=== PATIENT | male | born 1955 | race Caucasian/White ===

== ENCOUNTER → 2017-08-11 10:17 | Outpatient (CLI) | payer BC, SELFPAY | PROVIDERS: Family Provider Family Medicine; PCP Family Medicine; Visit Provider Nurse Practitioner Adult Health | DX: N39.0 Urinary tract infection, site not specified (principal) | CPT/HCPCS: 87077; 87086; 87088; 87186 ==

== ENCOUNTER → 2017-08-17 08:29 | Outpatient (CLI) | payer OTHER, BC, SELFPAY ==
[2017-08-17 08:00] VITALS: BP 130/86; BMI 45.4
--- NOTE | 2017-08-17 08:33 | RAD_ITS ---
STUDY: X-RAY - LEFT CLAVICLE REASON FOR EXAM: Male, 61 years old. Pain. Recent fall. TECHNIQUE: 2 view(s) of the clavicle. COMPARISON: Comparison is made with prior examination dated June 18, 2017. FINDINGS: Marked degree of osteoarthritis of the glenohumeral joint with degenerative spurring in the medial aspect of the humeral head. Normal clavicle. There is degenerative arthrosis of the acromioclavicular joint without inferior osseous prominence. Normal visualized sternoclavicular articulation. Normal visualized pulmonary apex. RAD/Clavicle IMPRESSION: Marked degree of glenohumeral osteoarthritis. Electronically Signed: Agustín Escudero MD at 14:13 EST Tel [phone], Service support ,
== END ==
PROVIDERS: Family Provider Family Medicine; PCP Family Medicine; Visit Provider Physician Assistant
DX: S46.912A Strain of unspecified muscle, fascia and tendon at shoulder and upper arm level, left arm, initial encounter (principal); M25.512 Pain in left shoulder; X58.XXXA Exposure to other specified factors, initial encounter; Y93.9 Activity, unspecified; Y92.9 Unspecified place or not applicable; Y99.9 Unspecified external cause status
CPT/HCPCS: 73000

== ENCOUNTER → 2017-09-04 10:17 | Outpatient (CLI) | payer OTHER, SELFPAY ==
--- NOTE | 2017-09-04 10:19 | MRI_ITS ---
STUDY: MRI LEFT SHOULDER REASON FOR EXAM: Male, 61 years old. Recent fall. Limited range of motion. Weakness. TECHNIQUE: Standardized fat and water weighted pulse sequences were obtained in all 3 orthogonal planes. COMPARISON: X-ray June 18, 2016 FINDINGS: Normal supraspinatus tendon. Normal infraspinatus tendon. Normal subscapularis tendon. Normal teres minor tendon. Normal supraspinatus muscle. Normal infraspinatus muscle. Normal subscapularis muscle. Normal teres minor muscle. There is severe osteoarthritis of the glenohumeral articulation. There is a moderate volume joint effusion of the glenohumeral joint. There is spurring and flattening deformity of the medial humeral head Normal biceps labral complex. Normal intracapsular long biceps tendon. There is blunting of the labrum with tearing of the posterior and superior labrum. Normal capsulo- ligamentous complex. Normal rotator interval. There is severe hypertrophic osteoarthritis of the acromioclavicular articulation with impingement upon the musculotendinous junction of the supraspinatus muscle. There is a Type II morphology (curved) acromion, with a neutral orientation. There is no subacromial-subdeltoid bursal fluid. Normal visualized coracohumeral and coracoacromial ligaments. Normal quadrilateral space. Normal axillary space. Normal deltoid muscle. Normal trapezius muscle. MRI/Upper Ext Joint Only(Routine) IMPRESSION: Severe glenohumeral degenerative change. Tearing of the labrum. Joint effusion. No rotator cuff tear. Acromioclavicular spurring and impingement. Electronically Signed: Josue Girard MD at 12:06 EST , Service support ,
== END ==
PROVIDERS: Family Provider Family Medicine; PCP Family Medicine; Visit Provider Physician Assistant
DX: S46.912A Strain of unspecified muscle, fascia and tendon at shoulder and upper arm level, left arm, initial encounter (principal); X58.XXXA Exposure to other specified factors, initial encounter; Y93.9 Activity, unspecified; Y92.9 Unspecified place or not applicable; Y99.9 Unspecified external cause status
CPT/HCPCS: 73221

== ENCOUNTER 2018-01-03 13:53 | Emergency (ER) | payer BC, SELFPAY ==
[2018-01-03 13:54] VITALS: BP 161/75; PULSE 102; RESP 24; TEMP 37.2; O2SAT 98; BMI 45.8
--- NOTE | 2018-01-03 14:27 | CT_ITS ---
STUDY: CT ABDOMEN AND PELVIS WITHOUT CONTRAST REASON FOR EXAM: Male, 62 years old. UTI SYMPTOMS X3 DAYS/HEMATURIA HX-PROSTATE CA W/ RADIATION RADIATION DOSAGE (If Supplied By Facility): CTDIvol = ( 34.29 ) mGy, DLP = ( 1884.90 ) mGycm TECHNIQUE: Transaxial images were obtained from the dome of the diaphragm to the symphysis pubis without oral contrast, and without intravenous contrast. Sagittal and coronal images were reconstructed. Individualized dose optimization techniques were used for this CT. COMPARISON: January 23, 2017 FINDINGS: The visualized lung bases are unremarkable. The visualized portions of the heart are within normal limits. There is a stable hepatic hypodensity. Again seen is cholelithiasis.. Normal spleen. Normal pancreas. Normal bilateral adrenal glands. There is mild right slightly worse than left perinephric stranding which is slightly worsened. Otherwise normal kidneys. There is a new small hiatal hernia. Normal small intestine. Normal colon. There is non-visualization of the appendix. There is diffuse atherosclerotic calcification of the abdominal aorta, without a demonstrated aneurysm. Normal inferior vena cava. Normal retroperitoneum. Normal urinary bladder. There is a stable umbilical hernia. There are diffuse degenerative changes of the visualized lumbar spine. CT/Abdomen/Pelvis without Cont IMPRESSION: There is mild bilateral renal inflammation, which could be chronic or acute. There is a new small hiatal hernia. Other chronic findings. Electronically Signed: Lisa Sheehan MD at 15:26 EDT , Service support ,
[2018-01-03 14:49] VITALS: BP 184/100; PULSE 96; RESP 20; O2SAT 97
[2018-01-03 15:12] LABS: Anion Gap 5 (5-15); BUN 16 mg/dL (7-18); BUN/Creat Ratio 15.2 RATIO (10-20); Calcium,Total 9.1 mg/dL (8.5-10.1); Chloride 105 mmol/L (98-107); Creatinine, Serum 1.05 mg/dL (0.70-1.30); EST Glomerular Filtration Rate 76 mL/min (>60); Est Glom Filt Rate - Afr Amer 91 mL/min (>60); Glucose 131 mg/dL (74-106); Sodium Level 141 mmol/L (136-145)
[2018-01-03 15:15] LABS: Absolute Lymphocyte Count 0.46 X10^3/ul (0.83-4.51); Absolute Neutrophil Count 12.7 X10^3/uL (2.0-7.7); Basophil# 0.05 X10^3/uL; Basophil% 0.4 % (0-1); Eosinophil# 0.15 X10^3/uL; Eosinophils% 1.1 % (0-5); Hematocrit 46.4 % (40-54); Hemoglobin 15.9 g/dl (13.0-16.5); Lymphocyte # 0.46 X10^3/ul (4.0); Lymphocyte % 3.3 % (19-41); Mean Corp Hgb Conc 34.3 g/gl (32-36); Mean Corpuscular Hgb 31.4 pg (27.0-32.0); Mean Corpuscular Volume 91.5 fL (80-94); Mean Platelet Vol. 9.7 fl (6.2-12.0); Monocyte# 0.76 X10^3/uL; Monocyte% 5.4 % (0-10); Neutrophil # 12.67 X10^3/uL (2.7-7.7); Neutrophil % 89.7 % (47-70); Platelet Count 246 K/mm3 (150-450); RBC Distribution Width CV 12.8 % (11.6-14.6); RBC Distribution Width SD 42.1 fl (35.1-43.9); Red Blood Count 5.07 M/mm3 (4.6-6.2); White Blood Count 14.1 K/mm3 (4.4-11.0)
[2018-01-03 15:19] LABS: Differential Indicated SCAN CRITERIA MET; POSITIVE COUNT NO; POSITIVE DIFFERENTIAL YES; POSITIVE MORPHOLOGY NO
[2018-01-03 15:21] LABS: Differential Comment SCANNED
[2018-01-03 15:28] LABS: Bacteria 0 SEEN /hpf (None Seen); Mucous, Urine 0 SEEN /hpf (<or=2+); Red Blood Cells-Urine 0 SEEN /hpf (0-5)
[2018-01-03 15:44] LABS: Color, Urine Yellow (Yellow); Glucose, Dipstick Normal (Normal); Ketone-Dipstick Negative (Negative); Leukocyte Esterase-Dipstick 25 /ul (Negative); Nitrite-Dipstick Negative (Negative); Occult Blood-Urine Negative /ul (Negative); Protein-Dipstick Negative (Negative); Urine Bilirubin Dipstick Negative (Negative); Urine Clarity Clear (Clear); Urine Urobilinogen Normal (Normal)
[2018-01-03] MEDS: Ketorolac 15 MG/ML Vial IV (15:48)
[2018-01-03 15:56] LABS: Squamous Epithelial Cells - UA 0-5 SEEN /hpf (0-5); White Blood Cells 0-5 SEEN /hpf (0-5)
[2018-01-03 16:00] VITALS: TEMP 37.6
--- NOTE | 2018-01-03 16:26 | ED.DCSUM_ITS ---
- ER Visit Summary Date of Service: 01/03/18 Chief Complaint: Right flank pain History of Present Illness: The patient is a 62 M who presents with dysuria, hematuria, and right flank pain that has been getting worse over the past 3 days. Patient states his urine has been cloudy and he has been passing some blood clots. Patient admits to chills today. Patient did not take his temperature at home. Patient describes his pain is aching. Patient states the pain is over the right posterior flank. Patient denies any suprapubic pain. Patient admits to dysuria, frequency, urgency, and hematuria. Physical Examination: Vital signs are stable except for an elevated blood pressure of 184/100. Patient is in no acute distress. Oral mucosa is pink and moist. Neck is supple there is no JVD noted. Heart was regular rate and rhythm. Lungs are clear and equal bilaterally. Abdomen is soft. Bowel sounds are normal. There is no suprapubic tenderness. There is some right CVA tenderness noted. Cranial nerves II through XII are intact. There are no focal motor or sensory deficits noted. The remaining physical exam is within normal limits. Test Results: CBC showed a mild leukocytosis of 14.1. Basic metabolic profile is within normal limits. Urinalysis showed leukocyte esterase of 25 but 0-5 white blood cells 0-[address] scan of the abdomen and pelvis showed perinephric stranding bilaterally but worse on the right. There is no other acute intra-abdominal pathology noted. Emergency Department Course and Treatment: Given the patient's symptoms and perinephric stranding of the kidneys bilaterally, the patient will be treated for pyelonephritis with Unasyn. Patient states he does not want to take Cipro or quinolones because he read that it can cause problems with his eyes. Patient was given a dose of Unasyn here in the emergency department. Patient was given a prescription for Augmentin. Patient was instructed to follow-up with his primary care physician in 3-5 days. Patient understood and was agreeable with the plan. All questions were answered. Disposition: Discharge home Impression: Pyelonephritis This note was generated with [employer] dictation software. It may contain incorrect words, spelling, and punctuation that were not noted in review of the chart prior to signing ED Disposition - Plan for ED Patient: Disposition: Home or Assisted Living Chief Complaint: Complaint Diagnosis: Pyelonephritis, acute Instructions: ED UTI Pyelonephritis Male Prescriptions: Amoxicillin/Potassium Clav [Augmentin 875-125 Tablet] 1 ea PO BID #20 tab Referrals: Chun Schneider DO [Primary Care Provider] -
[2018-01-03 16:36] VITALS: BP 130/72; PULSE 103; RESP 16; TEMP 39.3; O2SAT 95
[2018-01-03 17:27] VITALS: BP 137/84; PULSE 89; RESP 14; O2SAT 97
== END 2018-01-03 17:28 | disposition home or self-care (01) ==
PROVIDERS: Emergency Provider Emergency Medicine; Family Provider Family Medicine; PCP Family Medicine
DX: N10 Acute pyelonephritis (principal); R03.0 Elevated blood-pressure reading, without diagnosis of hypertension; Z79.899 Other long term (current) drug therapy; Z87.442 Personal history of urinary calculi; Z85.46 Personal history of malignant neoplasm of prostate
CPT/HCPCS: 51702; 74176; 80048; 81001; 85025; 87040; 96365; 96375; 99285; A4216; J0295

== ENCOUNTER → 2018-01-04 17:45 | Outpatient (CLI) | payer BC, SELFPAY | PROVIDERS: Visit Provider Urology | DX: R30.0 Dysuria (principal); R31.9 Hematuria, unspecified | CPT/HCPCS: 87086 ==

== ENCOUNTER 2018-03-17 23:29 | Emergency (ER) | payer BC, SELFPAY ==
[2018-03-17 23:31] VITALS: BP 131/74; PULSE 84; RESP 16; TEMP 36.4; O2SAT 96; BMI 49.1
[2018-03-17] MEDS: 0.9% Normal Saline 1,000 ML 1000 ML IV (23:48)
[2018-03-17 23:57] LABS: Absolute Lymphocyte Count 1.96 X10^3/ul (0.83-4.51); Absolute Neutrophil Count 4.7 X10^3/uL (2.0-7.7); Basophil# 0.09 X10^3/uL; Basophil% 1.2 % (0-1); Eosinophils% 3.9 % (0-5); Hematocrit 42.5 % (40-54); Lymphocyte # 1.96 X10^3/ul (4.0); Lymphocyte % 25.2 % (19-41); Mean Corp Hgb Conc 35.3 g/gl (32-36); Mean Corpuscular Hgb 31.8 pg (27.0-32.0); Mean Platelet Vol. 9.4 fl (6.2-12.0); Neutrophil # 4.69 X10^3/uL (2.7-7.7); Neutrophil % 60.2 % (47-70); Platelet Count 304 K/mm3 (150-450); RBC Distribution Width CV 12.6 % (11.6-14.6); RBC Distribution Width SD 40.9 fl (35.1-43.9); Red Blood Count 4.72 M/mm3 (4.6-6.2); White Blood Count 7.8 K/mm3 (4.4-11.0)
[2018-03-18 00:03] LABS: POSITIVE COUNT NO; POSITIVE DIFFERENTIAL NO; POSITIVE MORPHOLOGY NO
[2018-03-18 01:01] LABS: Anion Gap 12 (5-15); BUN 21 mg/dL (7-18); Calcium,Total 9.2 mg/dL (8.5-10.1); Chloride 99 mmol/L (98-107); Creatinine, Serum 1.61 mg/dL (0.70-1.30); EST Glomerular Filtration Rate 46 mL/min (>60); Est Glom Filt Rate - Afr Amer 56 mL/min (>60); Estimated Creatinine Clearance 47.86 ml/min; Glucose 94 mg/dL (74-106); Potassium 4.1 mmol/L (3.5-5.1); Sodium Level 136 mmol/L (136-145)
--- NOTE | 2018-03-18 02:52 | ED.VISSUMM ---
- ER Visit Summary Date of Service: 03/18/18 Chief Complaint: [Muscle cramps] History of Present Illness: The patient is a 62 M [presents the emergency department complaint of muscle cramps that started about 45 minutes ago. Patient states that he was at work working in a very hot environment for over 8 hours and although he tried to keep up with his hydration he believes he got dehydrated. Patient states he has intermittent cramping of his arms and legs as well as his back and abdomen muscles. Patient denies recent illness. He denies any chest pain or shortness of breath.] Physical Examination: [HEENT-PERRLA, EOMI. Cranial nerves II through XII grossly intact. TMs clear. Mucous membranes moist. No adenopathy. On arrival to ER patient is covered in sweat and he has salt rodriguez on his shirt and clothing. As well as his . Cardiovascular-regular rate and rhythm without murmur or ectopy Lungs-clear to auscultation, chest wall stable without crepitus or subcu emphysema Abdomen-normoactive bowel sounds, soft, nontender, no rebound or rigidity, no peritoneal signs. Extremities-intact ?4, normal range of motion, normal pulses, atraumatic] Test Results: [CBC with differential obtained was normal. Chemistries were unremarkable. BUN was 21 creatinine 1.61. Potassium was 4.1 and calcium was 9.2.] Emergency Department Course and Treatment: [Patient received a liter normal same fluid bolus] Treatment Plan: [Discharged home in stable condition advised to push fluids] Disposition: [Discharged] Impression: [Muscle cramping Dehydration] This note was generated with [employer] dictation software. It may contain incorrect words, spelling, and punctuation that were not noted in review of the chart prior to signing ED Disposition - Plan for ED Patient: Chief Complaint: General Illness Referrals: Chun Schneider DO [Primary Care Provider] -
--- NOTE | 2018-03-18 02:54 | ED.DEP ---
ED Disposition - Plan for ED Patient: Chief Complaint: General Illness Instructions: ED Spasm Muscle, Dehydration Referrals: Chun Schneider DO [Primary Care Provider] - As Needed
[2018-03-18 03:01] VITALS: BP 104/60; PULSE 68; RESP 18; O2SAT 95
== END 2018-03-18 03:02 | disposition home or self-care (01) ==
LOC: ED 03-18 00:14
PROVIDERS: Emergency Provider Emergency Medicine; Family Provider Family Medicine; PCP Family Medicine
DX: E86.0 Dehydration (principal); I10 Essential (primary) hypertension; Z79.899 Other long term (current) drug therapy; Z96.653 Presence of artificial knee joint, bilateral
CPT/HCPCS: 80048; 85025; 96360; 96361; 99284; J7030; A4216

== ENCOUNTER → 2018-07-17 07:44 | Outpatient (CLI) | payer BC, SELFPAY ==
[2018-07-17 07:44] VITALS: BMI 45.4
[2018-07-17 08:52] LABS: PSA,Total- Diagnostic 0.24 ng/mL (0.0-4.0)
== END ==
PROVIDERS: Family Provider Family Medicine; PCP Family Medicine; Referring Provider Urology; Visit Provider Urology
DX: C61 Malignant neoplasm of prostate (principal)
CPT/HCPCS: 36415; 84153

== ENCOUNTER → 2018-11-17 14:23 | Outpatient (CLI) | payer BC, SELFPAY ==
[2018-11-17 09:42] VITALS: BMI 45.4
[2018-11-17 14:39] LABS: Bacteria 0 SEEN /hpf (None Seen); Mucous, Urine 0 SEEN /hpf (<or=2+); Red Blood Cells-Urine 0 SEEN /hpf (0-5); White Blood Cells 0 SEEN /hpf (0-5)
[2018-11-17 14:50] LABS: Color, Urine Yellow (Yellow); Glucose, Dipstick Normal (Normal); Ketone-Dipstick Negative (Negative); Leukocyte Esterase-Dipstick Negative /ul (Negative); Nitrite-Dipstick Negative (Negative); Occult Blood-Urine Negative /ul (Negative); Protein-Dipstick Negative (Negative); Specific Gravity, Urine 1.015 (1.002-1.030); Urine Clarity Sl. Cloudy (Clear); Urine Urobilinogen Normal (Normal); Urine pH 6.5 (5.0 - 8.0)
[2018-11-17 14:52] LABS: Urine Bilirubin Dipstick 3 mg/dL (Negative)
[2018-11-17 14:58] LABS: Squamous Epithelial Cells - UA 0-5 SEEN /hpf (0-5)
== END ==
PROVIDERS: Family Provider Family Medicine; PCP Family Medicine; Referring Provider Physician Assistant; Visit Provider Physician Assistant
DX: R35.0 Frequency of micturition (principal)
CPT/HCPCS: 81001; 87077; 87086; 87088; 87186

== ENCOUNTER → 2018-12-23 09:04 | Outpatient (CLI) | payer BC, SELFPAY ==
[2018-11-17 09:42] VITALS: BMI 45.4
--- NOTE | 2018-12-23 09:30 | RAD_ITS ---
HISTORY:bilat hands pain Tamp; swelling. lt side pain (Tgt;) rt side bilat hands pain Tamp; swelling. lt side pain (Tgt;) rt side COMPARISON: None FINDINGS: # of images incl. paperwork: 3 XR Hand Min 3 Views: Left BONE AND JOINTS: No acute fracture or subluxation. SOFT TISSUES: Unremarkable. No radiopaque foreign body. RAD/Hand Min 3 Views IMPRESSION: No acute pathology If symptoms persist repeat study in 7-10 days or sooner if clinically indicated at 1946 Reported and signed by: Liz Simons DO Electronically Signed: Liz Simons DO at 19:43 EDT Tel , Service support ,
--- NOTE | 2018-12-23 09:30 | RAD_ITS ---
HISTORY:bilat hands pain Tamp; swelling. also finger swelling. lt side pain (Tgt;) rt side bilat hands pain Tamp; swelling. also finger swelling. lt side pain (Tgt;) rt side COMPARISON: None FINDINGS: # of images incl. paperwork: 3 XR Hand Min 3 Views: Right BONE AND JOINTS: No acute fracture or subluxation. there is joint space narrowing seen at the proximal interphalangeal joint of the middle finger with osteophyte formation. Also at the second and third metacarpophalangeal joints. Osteophytes are seen at the second and third metacarpal heads. SOFT TISSUES: Unremarkable. No radiopaque foreign body. RAD/Hand Min 3 Views IMPRESSION: Degenerative changes as discussed at 1949 Reported and signed by: Liz Simons DO Electronically Signed: Liz Simons DO at 19:48 EDT Tel , Service support ,
--- NOTE | 2018-12-23 09:30 | RAD_ITS ---
HISTORY:bilat shoulder pain. lt side pain (Tgt;) rt side proximal COMPARISON: None FINDINGS: # of images incl. paperwork: 4 XR Shoulder Min 2 Views: Right BONE AND JOINTS: No acute fracture or subluxation. There is linear joint space narrowing with subchondral cyst formation at the humerus as well as at the glenoid. Large medial osteophyte extending from the humeral head as well as the inferior aspect of the glenoid. There is also acromioclavicular arthropathy. Probable loose bodies within the joint space most marked in the subcoracoid region that measures approximately 1.4 cm. SOFT TISSUES: Unremarkable. No radiopaque foreign body. 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
--- NOTE | 2018-12-23 09:31 | RAD_ITS ---
HISTORY:bilat shoulder pain. lt side pain (Tgt;) rt side bilat shoulder pain. lt side pain (Tgt;) rt side COMPARISON: June 18, 2017 FINDINGS: # of images incl. paperwork: 4 XR Shoulder Min 2 Views: Left BONE AND JOINTS: There is marked bony humeral joint space narrowing with a large medial osteophyte that was seen on the prior study. Acromiohumeral joint space narrowing is also noted with acromioclavicular arthropathy also noted. SOFT TISSUES: Unremarkable. No radiopaque foreign body. RAD/Shoulder min 2 Views IMPRESSION: Marked degenerative change involving the left shoulder that is relatively similar to the prior study. at 1953 Reported and signed by: Liz Simons DO Electronically Signed: Liz Simons DO at 19:50 EDT Tel , Service support ,
[2018-12-23 10:27] LABS: PSA,Total- Diagnostic 0.12 ng/mL (0.0-4.0)
== END ==
PROVIDERS: Urology; Family Provider Family Medicine; PCP Family Medicine; Referring Provider Family Medicine; Visit Provider Family Medicine
DX: M79.89 Other specified soft tissue disorders (principal); M79.642 Pain in left hand; M25.511 Pain in right shoulder; C61 Malignant neoplasm of prostate; R30.0 Dysuria
CPT/HCPCS: 36415; 73030; 73130; 84153; 87077; 87086; 87088; 87186

== ENCOUNTER 2019-07-12 14:26 | Emergency (ER) | payer BC, SELFPAY ==
[2019-07-11 13:58] VITALS: BMI 45.4
[2019-07-12 14:27] VITALS: BP 135/76; PULSE 72; RESP 15; TEMP 37.1; O2SAT 96; BMI 47.9
[2019-07-12] MEDS: 0.9% Normal Saline 1,000 ML 1000 ML IV (15:54)
[2019-07-12 16:13] LABS: Anion Gap 4 (5-15); BUN 9 mg/dL (7-18); BUN/Creat Ratio 10.5 RATIO (10-20); Calcium,Total 8.4 mg/dL (8.5-10.1); Chloride 111 mmol/L (98-107); Creatinine, Serum 0.85 mg/dL (0.70-1.30); EST Glomerular Filtration Rate 95 mL/min (>60); Est Glom Filt Rate - Afr Amer 115 mL/min (>60); Estimated Creatinine Clearance 83.82 ml/min; Glucose 103 mg/dL (74-106); Potassium 3.9 mmol/L (3.5-5.1); Sodium Level 142 mmol/L (136-145)
[2019-07-12 16:30] LABS: Absolute Lymphocyte Count 1.52 X10^3/uL (0.83-4.51); Absolute Neutrophil Count 2.5 X10^3/uL (2.0-7.7); Basophil# 0.07 X10^3/uL; Basophil% 1.4 % (0-1); Eosinophil# 0.37 X10^3/uL; Eosinophils% 7.6 % (0-5); Hematocrit 44.3 % (40-54); Lymphocyte # 1.52 X10^3/ul (4.0); Lymphocyte % 31.3 % (19-41); Mean Corp Hgb Conc 33.9 g/dL (32-36); Mean Corpuscular Hgb 31.2 pg (27.0-32.0); Mean Corpuscular Volume 92.1 fL (80-94); Mean Platelet Vol. 9.9 fl (6.2-12.0); Monocyte# 0.37 X10^3/uL; Monocyte% 7.6 % (0-10); NRBC Flagged by Analyzer 0 % (0-5); Neutrophil % 51.7 % (47-70); POSITIVE MORPHOLOGY YES; Platelet Count 256 K/mm3 (150-450); RBC Distribution Width CV 12.7 % (11.6-14.6); RBC Distribution Width SD 42.9 fl (35.1-43.9); Red Blood Count 4.81 M/mm3 (4.6-6.2); White Blood Count 4.9 K/mm3 (4.4-11.0)
[2019-07-12 16:37] VITALS: BP 137/85; PULSE 60; RESP 16; O2SAT 96
[2019-07-12 16:37] LABS: Differential Indicated SCAN CRITERIA MET
[2019-07-12 17:05] LABS: Reactive Lymphocyte RARE
--- NOTE | 2019-07-12 17:19 | ED.VIS.GEN ---
History of Present Illness Chief Complaint: Diarrhea Informant: Patient Onset: Days - 4 days Context: Gradual Onset Timing: Waxes and wanes Current Severity: Mild Maximum Severity: Moderate Narrative: Patient presents with a 4-day history of diarrhea. The day prior to onset of diarrhea he completed a 10-day course of Augmentin for upper respiratory symptoms. He is concerned he may have C. difficile. He denies fever or chills. He has not had significant abdominal pain. He does report a 6 pound weight loss over those 4 days. - Past Medical History (1) Dyslipidemia Status: Chronic (2) Hypertension Status: Chronic Past Medical History - Allergies and Home Meds Allergies/Adverse Reactions: Allergies hydromorphone HCl [From Dilaudid] Allergy (Verified 07/12/19 14:31) Other Primary Care Physician: Chun Schneider DO [Primary Care Provider] - Prior records reviewed: Yes Lives: Spouse/ Significant Other Smoking Status: Never smoker - Family History Maternal Family History: Reports: No pertinent history Review of Systems General: Denies: Chills, Fever Eyes: Denies: Visual changes - bilaterally ENT: Denies: Bilateral ear pain Cardiovascular: Denies: Chest pain Respiratory: Denies: Dyspnea, Cough Gastrointestinal: Reports: Nausea, Diarrhea. Denies: Abdominal pain, Vomiting Genitourinary: Denies: Dysuria Neurological: Denies: Headache Allergy: Denies: Uticaria Physical Exam Vital Signs/Narrative: Vital Signs Temp Pulse Resp BP Pulse Ox 07/12/19 16:37 60 16 137/85 H 96 07/12/19 14:27 98.8 F 72 15 135/76 H 96 Inital Vital Signs reviewed: Yes General: Well nourished, Well developed Head: Normocephalic ENT: Moist mucous membranes Neck: Supple Cardiovascular: Regular rate, Regular rhythm Respiratory: No distress, CTA bilaterally Abdomen: Soft, Nontender, Normal bowel sounds Extremities: Nontender Skin: Normal color Neurological: Alert, Oriented x3 Psychological: Normal affect Diagnostic/Tx/Re-eval Laboratory Results 07/12/19 07/12/19 07/12/19 15:49 15:49 16:13 WBC Cancelled 4.9 Corrected WBC Cancelled RBC Cancelled 4.81 Hgb Cancelled 15.0 Hct Cancelled 44.3 MCV Cancelled 92.1 MCH Cancelled 31.2 MCHC Cancelled 33.9 RDW Std Deviation Cancelled 42.9 RDW Coeff of Shahzad Cancelled 12.7 Plt Count Cancelled 256 MPV Cancelled 9.9 Immature Gran % (Auto) Cancelled 0.400 Neut % (Auto) Cancelled 51.7 Lymph % (Auto) Cancelled 31.3 [place] % (Auto) Cancelled 7.6 Eos % (Auto) Cancelled 7.6 H Baso % (Auto) Cancelled 1.4 H Absolute Neuts (auto) Cancelled 2.5 Absolute Lymphs (auto) Cancelled 1.52 Total Counted Cancelled Neutrophils % (Manual) Cancelled Band Neutrophils % Cancelled Lymphocytes % (Manual) Cancelled Monocytes % (Manual) Cancelled Eosinophils % (Manual) Cancelled Basophils % (Manual) Cancelled Metamyelocytes % Cancelled Myelocytes % Cancelled Promyelocytes % Cancelled Blast Cells % Cancelled Plasma Cell % (Manual) Cancelled Other Cells % Cancelled Nucleated RBC % Cancelled 0 Nucleated RBCs/100 WBC Cancelled Differential Comment Cancelled Diff Path Review Cancelled Hypersegmented Neuts Cancelled Atypical Lymphocytes Cancelled Reactive Lymphocytes Cancelled RARE Smudge Cells Cancelled Toxic Granulation Cancelled Toxic Vacuolation Cancelled Dohle Bodies Cancelled Kian Rods Cancelled Platelet Estimate Cancelled Plt Morphology Comment Cancelled RBC Morphology Cancelled Polychromasia Cancelled Hypochromasia Cancelled Poikilocytosis Cancelled Basophilic Stippling Cancelled Anisocytosis Cancelled Microcytosis Cancelled Macrocytosis Cancelled Spherocytes Cancelled Sickle Cells Cancelled Target Cells Cancelled Tear Drop Cells Cancelled Ovalocytes Cancelled Stomatocytes Cancelled Mcdonough-Elkridge Bodies Cancelled Hamilton Cells Cancelled Bite Cells Cancelled Crenated Cell Cancelled Acanthocytes (Spur) Cancelled Rouleaux Cancelled Schistocytes Cancelled Sodium 142 Potassium 3.9 Chloride 111 H Carbon Dioxide 27.0 Anion Gap 4 L BUN 9 Creatinine 0.85 Estim Creat Clear Calc 83.82 Est GFR (MDRD) Af Amer 115 Est GFR (MDRD) Non-Af 95 BUN/Creatinine Ratio 10.5 Glucose 103 Calcium 8.4 L - Medical Decision Making Patient was given a liter of IV fluids here. He did provide a stool sample, however stool is now solid. I advised him that they would not even run C. difficile testing on this. He will be given an outpatient order and if his stool becomes more liquid again he will bring it in for outpatient testing. ED Disposition - Plan for ED Patient: Disposition: Home or Assisted Living Diagnosis: Diarrhea Instructions: DIARRHEA, Unk Cause (Adult) Report Pendg Referrals: Chun Schneider DO [Primary Care Provider] - 3-5 Days if not improving
[2019-07-12 17:36] VITALS: PULSE 71; RESP 16; O2SAT 98
== END 2019-07-12 17:36 | disposition home or self-care (01) ==
PROVIDERS: Emergency Provider Emergency Medicine; Family Provider Family Medicine; PCP Family Medicine
DX: R19.7 Diarrhea, unspecified (principal); I10 Essential (primary) hypertension; E78.5 Hyperlipidemia, unspecified
CPT/HCPCS: 80048; 85025; 96360; 99285; J7030

== ENCOUNTER → 2019-09-06 | Outpatient (CLI) | payer BC, SELFPAY | END | disposition home or self-care (01) | LOC: LABSPEC 11:18 | PROVIDERS: PCP Family Medicine; Referring Provider Urology; Visit Provider Urology | DX: R30.9 Painful micturition, unspecified (principal) | CPT/HCPCS: 87077; 87086; 87088; 87186 ==

== ENCOUNTER 2020-03-17 22:31 | Emergency (ER) | payer BC, SELFPAY ==
[2020-03-17 22:31] VITALS: BP 136/72; PULSE 66; RESP 16; TEMP 36.8; BMI 45.7
--- NOTE | 2020-03-17 23:11 | ED.VISSUMM ---
- ER Visit Summary Date of Service: 03/17/20 Chief Complaint: Fall History of Present Illness: The patient is a [address] Schneider. 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 He has a history of bilateral cataract surgery in 2018. He reports that just prior to coming emerge department he caught his heel on the last step and fell. States that he face planted into a abernathy. He denies any bleeding from his nose. No pain to his nose. No neck, back, shoulder, wrist, or hip pain. Patient denies any change in his vision. No loss of consciousness. He is not on anticoagulants. Review of systems: General: No fever, chills, cold sweats. Cardiovascular: No chest pain, palpitations. Respiratory: No cough, shortness of breath, dyspnea on exertion. Gastrointestinal: No abdominal pain, nausea, vomiting, diarrhea, melena, or hematochezia. Genitourinary: No dysuria, frequency, hematuria. Skin: No rash. Neuro: No headache, numbness, weakness. Physical Examination: Vitals: Stable. Afebrile. Face: Abrasion to the bridge of his nose. No active bleeding. This does not require repair. Eyes: He has a contusion and soft tissue swelling to the right upper eyelid. There is a large sub-conjunctival hemorrhage to the inferior portion of his eye. Extraocular motions are intact. Visual acuity is 20/40 on the right, 20/25 on the left, and 20/25 bilaterally. Neck: No vertebral tenderness. Full ROM without difficulty. Cleared by NEXUS criteria. Back: No vertebral tenderness. General: A&O x 3. NAD. Cardiovascular exam: Regular rate and rhythm, no murmur, rub or gallop. Respiratory exam: Chest nontender. No crepitus. Clear to auscultation bilaterally. No wheezes or stridor. Abdominal exam: Soft, nontender, nondistended, normal bowel sounds. No pain in RUQ or LUQ specifically. No peritoneal signs. Extremity: Atraumatic. No pain with range of motion. Emergency Department Course and Treatment: Patient was given Tylenol for pain. He had his tetanus shot updated. I had a prolonged discussion with him that I do not think that the lens has moved from his cataract replacement. Treatment Plan: Patient will be discharged with instructions to follow-up with his sporting goods sales manager in 3 to 5 days for another exam. Return to the emergency department for any worsening symptoms. Disposition: To home in improved and stable condition. Impression: 1. Fall. 2. Abrasion to nose. 3. Subconjunctival hemorrhage on right. This note was generated with [employer] dictation software. It may contain incorrect words, spelling, and punctuation that were not noted in review of the chart prior to signing ED Disposition - Plan for ED Patient: Instructions: ED EYE INJURY Subconj Hemorrhage Referrals: Doctor,Your [STAFF PHYSICIAN] - 3-5 Days
[2020-03-17 23:36] VITALS: RESP 16
[2020-03-17] MEDS: Acetaminophen 500 MG Tablet 1000 MG PO (23:36)
[2020-03-17] MEDS: Diphth,Pertuss(Acell),Tet Vac 0.5 ML Vial IM (23:36)
== END 2020-03-17 23:48 | disposition home or self-care (01) ==
LOC: ED 22:57
PROVIDERS: Emergency Provider Emergency Medicine; PCP Family Medicine
DX: S00.31XA Abrasion of nose, initial encounter (principal); W10.9XXA Fall (on) (from) unspecified stairs and steps, initial encounter; Y93.9 Activity, unspecified; Y92.9 Unspecified place or not applicable; H11.31 Conjunctival hemorrhage, right eye; I10 Essential (primary) hypertension; Z79.82 Long term (current) use of aspirin; Z79.899 Other long term (current) drug therapy
CPT/HCPCS: 90471; 90715; 99283

== ENCOUNTER 2020-08-19 14:39 | Observation (INO) | payer BC, SELFPAY ==
[2020-08-19] VITALS (9 sets, daily range): BP systolic 104–135; BP diastolic 64–76; PULSE 44–77; RESP 12–24; TEMP 36.3–36.9; O2SAT 98–100; BMI 43.4; BMI 41.4
--- NOTE | 2020-08-19 15:22 | EKG12_ITS ---
Test Reason : DIZZY/LINDA Blood Pressure : / mmHG Vent. Rate : 051 BPM Atrial Rate : 051 BPM P-R Int : 164 ms QRS Dur : 092 ms QT Int : 438 ms P-R-T Axes : 036 043 058 degrees QTc Int : 403 ms Sinus bradycardia Otherwise normal ECG Confirmed by NBA CURTIS, SHANNON ([id number]), news video editor YADY DURBIN ([id number]) on 08/21/2020 8:23:59 AM Referred By: BREANNE/AYE Confirmed By:SHANNON ARANGO MD
--- NOTE | 2020-08-19 15:26 | ED.DCSUM_ITS ---
- ER Visit Summary Date of Service: 08/19/20 Chief Complaint: [Dizziness History of Present Illness: The patient is a 64 M [presents to the emergency department with complaint of dizziness that started yesterday morning when he first rolled over in bed and try to wake up. Patient states that everything chris t round and round. Patient states that he remained in bed and the symptoms resolved after few hours. Patient had another episode this morning similarly and when he checked his heart rate he noted that it was as low as 48 and normally he is in the 60s. Patient states that his blood pressure was normal. Patient currently not feeling dizzy unless he moves certain ways. He does have history years ago vertigo. He denies any falls or head injuries. He denies headache. He denies chest pain or shortness of breath. Patient has history of hypertension, obstructive sleep apnea, and history of vertigo.] Physical Examination: [HEENT-PERRLA, EOMI. Cranial nerves II through XII grossly intact. TMs clear. Mucous membranes moist. No adenopathy. Cardiovascular-regular rate and rhythm without murmur or ectopy Lungs-clear to auscultation, chest wall stable without crepitus or subcu emphysema Abdomen-normoactive bowel sounds, soft, nontender, no rebound or rigidity, no peritoneal signs. Neuro [id number] and heel bro testing within normal limits, negative Romberg, negative for drift, fundi benign Extremities-intact ?4, normal range of motion, normal pulses, atraumatic] Test Results: [EKG obtained on arrival shows sinus bradycardia with a ventricular rate of 51 bpm with no acute ST segment changes. CBC with differential was unremarkable. Chemistries unremarkable. Troponin was slightly elevated 0.062.] Orthostatic vital signs were negative. Emergency Department Course and Treatment: [The line established. Patient placed on a vehicle monitor technician. Patient received 2 baby aspirin.] Treatment Plan: [Case discussed with hospitalist will evaluate patient for admission] Disposition: [Admit] Impression: [Dizziness-suspect benign positional vertigo Exertional dyspnea Elevated troponin-rule out acute coronary syndrome] This note was generated with [employer] software. It may contain incorrect words, spelling, and punctuation that were not noted in review of the chart prior to signing ED Disposition - Plan for ED Patient: Referrals: Chun Schneider DO [Primary Care Provider] -
[2020-08-19 15:32] LABS: Absolute Neutrophil Count 2.5 X10^3/uL (2.0-7.7); Basophil# 0.09 X10^3/uL; Basophil% 1.8 % (0-1); Eosinophil# 0.36 X10^3/uL; Eosinophils% 7.3 % (0-5); Hemoglobin 15.1 g/dL (13.0-16.5); Lymphocyte % 32.3 % (19-41); Mean Corp Hgb Conc 34.3 g/dL (32-36); Mean Corpuscular Hgb 31.2 pg (27.0-32.0); Mean Corpuscular Volume 90.9 fL (80-94); Mean Platelet Vol. 9.6 fl (6.2-12.0); Monocyte# 0.42 X10^3/uL; Monocyte% 8.5 % (0-10); NRBC Flagged by Analyzer 0 % (0-5); Neutrophil # 2.48 X10^3/uL (2.7-7.7); Neutrophil % 49.9 % (47-70); Platelet Count 271 K/mm3 (150-450); RBC Distribution Width CV 12.1 % (11.6-14.6); RBC Distribution Width SD 40.8 fl (35.1-43.9); Red Blood Count 4.84 M/mm3 (4.6-6.2)
[2020-08-19] MEDS: 0.9% Normal Saline 1,000 ML 150 ML IV (15:44)
[2020-08-19 15:46] LABS: Anion Gap 5 (5-15); BUN 18 mg/dL (7-18); BUN/Creat Ratio 21.7 RATIO (10-20); Chloride 107 mmol/L (98-107); Creatinine, Serum 0.83 mg/dL (0.70-1.30); EST Glomerular Filtration Rate 98 mL/min (>60); Est Glom Filt Rate - Afr Amer 119 mL/min (>60); Estimated Creatinine Clearance 93.24 ml/min; Glucose 96 mg/dL (74-106); Potassium 4.1 mmol/L (3.5-5.1); Sodium Level 143 mmol/L (136-145)
[2020-08-19] MEDS: Aspirin 81 MG TAB.CHEW 324 MG PO (17:17)
--- NOTE | 2020-08-19 17:41 | EKG12_ITS ---
Test Reason : ELEVATED TROPONIN Blood Pressure : / mmHG Vent. Rate : 069 BPM Atrial Rate : 069 BPM P-R Int : 212 ms QRS Dur : 098 ms QT Int : 406 ms P-R-T Axes : 043 031 039 degrees QTc Int : 435 ms Sinus rhythm with marked sinus arrhythmia with 1st degree A-V block Otherwise normal ECG When compared with ECG of 19-AUG-2020 15:07, MANUAL COMPARISON REQUIRED, DATA IS UNCONFIRMED Confirmed by NBA CURTIS, SHANNON ([id number]), graphics editor YADY DURBIN ([id number]) on 08/21/2020 8:29:59 AM Referred By: NATACHA Confirmed By:SHANNON ARANGO MD
--- NOTE | 2020-08-19 17:45 | PCM.HP.STD ---
Problem List (1) Bradycardia with 41-50 beats per minute Status: Acute (2) Dizziness and giddiness Status: Acute History of Present Illness Date of Admission: 08/19/20 The patient is a 64 year old M with a history of hypertension. Presents to the hospital with 2 days history of intermittent episodes of dizziness and lightheadedness/giddiness. Patient noted as well that he was intermittently bradycardic with lowest heart rate noted to be 48. Since presenting to the emergency room heart rate has been running between 50 to 60 bpm and the EKG showed sinus bradycardia. Has also been experiencing some exertional dyspnea and mild easy fatigability. Denies any orthopnea or paroxysmal nocturnal dyspnea. Denies any lower extremity swelling. Denies any chest pain or palpitations. [] Past Medical History Past Medical History (Chronic Problems): Chronic Problems (Last Reviewed 06/17/20 @ 11:48 by Jahaira Abdalla) Morbid obesity with BMI of 45.0-49.9, adult (Chronic) Colonic polyp (Chronic) Hypertension (Chronic) Allergic rhinitis (Chronic) Dyslipidemia (Chronic) Hypogonadism in male (Chronic) Medical History: Medical History (Last Reviewed 06/17/20 @ 11:48 by Jahaira bAdalla) Arthritis M19.90 Fatigue R53.83 Hay fever J30.1 Knee pain M25.569 Prostate cancer C61 Shoulder pain M25.519 HTN (hypertension) I10 Allergies hydromorphone HCl [From Dilaudid] Allergy (Verified 08/19/20 14:42) Other Home Medications: Ambulatory Orders Medication Instructions Recorded Furosemide [Lasix] 40 mg PO DAILY 02/14/15 Niacin 500 mg PO QHS 02/14/15 [place]-3 Acid Ethyl Esters [Lovaza] 2 gm PO DAILY 02/14/15 Potassium Chloride [K-Dur] 20 meq PO DAILY 02/14/15 Testosterone Cypionate 1 ml IM Q14D 02/14/15 [Depo-Testosterone] Vitamin B Complex 1 ea PO BID 02/14/15 5-Hydroxytryptophan (5-Htp) [5-Htp] 100 mg PO BID 03/09/17 Folic Acid 0.8 mg PO DAILY 03/09/17 Lisdexamfetamine Dimesylate 60 mg PO DAILY 03/09/17 [Vyvanse] Ibuprofen [Advil] 200 mg PO Q6H PRN PRN 01/03/18 pregabalin 75 mg capsule 100 mg PO TID 11/17/18 Amlodipine [Norvasc] 10 mg PO DAILY 07/12/19 Aspirin [Aspirin, Baby] 81 mg PO DAILY@0800 07/12/19 Benazepril HCl [Lotensin] 40 mg PO DAILY 07/12/19 Ergocalciferol [Vitamin D] 50,000 unit PO Q7D 08/19/20 Surgical History: Surgical History (Last Reviewed 06/17/20 @ 11:48 by Jahaira Abdalla) H/O LUMBAR FUSION L3-L4 H/O laminectomy Z98.890 L3-L4 H/O total knee replacement Z96.659 2010 History of appendectomy Z90.49 History of back surgery Z98.890 History of carpal tunnel release Z98.890 History of cataract surgery Z98.49 History of elbow surgery Z98.890 History of knee surgery Z98.890 Smoking Status: Never smoker - *Family History Maternal History Items: No pertinent history Review of Systems Constitutional: Denies: Anorexia, Chills Eyes: Denies: Pain HEENT: Denies: Difficulty Hearing Cardiovascular: Denies: Chest Pain Respiratory: Denies: Cough Gastrointestinal: Denies: Abdominal Pain, Vomiting Comment: Other systems reviewed and essentially negative VTE Information - Inpt Only VTE Present on Admission: No VTE Pharm Prophylaxis ordered?: Yes - Physical Exam Vitals/I&O's: Vital Signs Temp Pulse Resp BP Pulse Ox 97.8 F 50 L 12 115/75 100 08/19/20 16:47 08/19/20 16:47 08/19/20 16:47 08/19/20 16:47 08/19/20 16:47 Oxygen Delivery Method Room Air Weight: 134.717 kg Body Mass Index (BMI) 41.4 General: Alert, Oriented x3, Cooperative, No apparent distress HEENT: Atraumatic, PERRLA, EOMI, Normocephalic Oral: Moist Mucosa, No Gingival or Mucosal Lesions/ Ulcerations Neck: Supple, No JVD, Trachea Midline Lungs: Clear to auscultation, Normal air movement, No rhonchi, No wheeze, No rales Cardiovascular: Regular Rhythm, Normal S1, Normal S2, No Ectopic Activity Abdomen: Obese Extremities: No clubbing, No cyanosis, No edema Skin: No rashes Musculoskeletal: No Tenderness to Palpation of Joints or Extremities Neurological: Cranial nerves II-XII grossly intact, Motor Exam 5/5 strength throughout Psych/Mental Status: Normal Affect, Appropriate Laboratory Results 08/19/20 15:15: WBC 5.0, RBC 4.84, Hgb 15.1, Hct 44.0, MCV 90.9, MCH 31.2, MCHC 34.3, RDW Std Deviation 40.8, RDW Coeff of Shahzad 12.1, Plt Count 271, MPV 9.6, Immature Gran % (Auto) 0.200, Neut % (Auto) 49.9, Lymph % (Auto) 32.3, [place] % (Auto) 8.5, Eos % (Auto) 7.3 H, Baso % (Auto) 1.8 H, Absolute Neuts (auto) 2.5, Absolute Lymphs (auto) 1.60, Nucleated RBC % 0 08/19/20 15:15: Sodium 143, Potassium 4.1, Chloride 107, Carbon Dioxide 31.0, Anion Gap 5, BUN 18, Creatinine 0.83, Estim Creat Clear Calc 93.24, Est GFR (MDRD) Af Amer 119, Est GFR (MDRD) Non-Af 98, BUN/Creatinine Ratio 21.7 H, Glucose 96, Calcium 9.0, Troponin I 0.062 H Current Medications Al Hydroxide/Mg Hydroxide (Mag Hydrox/Al Hydrox/Simeth 30 Ml Udc) 30 ml PO Q6H PRN PRN PRN Reason: Gastric Burning Amlodipine Besylate (Amlodipine 10 Mg Tablet) 10 mg PO DAILY [facility] Aspirin (Aspirin 81 Mg Tab.Chew) 81 mg PO DAILY@0800 [facility] Enoxaparin Sodium (Enoxaparin 40 Mg/0.4 Ml Syringe) 40 mg SC DAILY [facility] Furosemide (Furosemide 40 Mg Tablet) 40 mg PO DAILY [facility] Sodium Chloride () 1,000 mls @ 150 mls/hr IV .[id number] [facility] Last Admin: 08/19/20 15:44 Dose: 150 mls/hr Documented by: Sodium Chloride () 250 mls @ 15 mls/hr IV .[id number] PRN PRN Reason: Saline Flush Sodium Chloride () 250 mls @ 15 mls/hr IV .[id number] PRN PRN Reason: Additional IVPB Infusion Ibuprofen (Ibuprofen 200 Mg Tablet) 200 mg PO Q6H PRN PRN PRN Reason: Pain Score 1-10 Melatonin (Melatonin 3 Mg Tablet) 3 mg PO QHS PRN PRN PRN Reason: INSOMNIA Non-Formulary Medication (5-Hydroxytryptophan (5-Htp) [5-Htp]) 100 mg PO BID [facility] Non-Formulary Medication (Benazepril Hcl [Lotensin]) 40 mg PO DAILY [facility] Non-Formulary Medication (Lisdexamfetamine Dimesylate [Vyvanse]) 60 mg PO DAILY [facility] Non-Formulary Medication (Niacin) 500 mg PO QHS [facility] [id number] Ethyl Esters ([place]ola-3 Acid Ethyl Esters 1 Gm Capsule) 2 gm PO DAILY [facility] Potassium Chloride (Potassium Chloride 20 Meq Tablet) 20 meq PO DAILY [facility] Pregabalin (Pregabalin 75 Mg Capsule) 100 mg PO TID [facility] Sodium Chloride (0.9% Saline Lock 10 Ml Syringe) 10 - 40 ml IV UD PRN PRN Reason: SALINE FLUSH Assessment/Plan All Active Problems (Last Reviewed 06/17/20 @ 11:48 by Jahaira Abdalla) Bradycardia with 41-50 beats per minute (Acute) Dizziness and giddiness (Acute) Conjunctivitis, left eye (Acute) Left shoulder strain (Acute) Contusion of left knee (Acute) Left shoulder pain (Acute) Lower GI bleed (Acute) 1. Dizziness and bradycardia. Bradycardia does not appear that severe to be symptomatic though. Nonetheless reasonable to do some limited work-up. We will keep patient on telemetry. Echocardiogram tomorrow. Consult cardiology. Cycle troponins. 2. Hypertension. Well-controlled. Continue antihypertensives. Inpatient E&M: 81040 Init Hosp L3
--- NOTE | 2020-08-19 17:49 | ECHOCS_ITS ---
Reason For Study: Arrhythmia Procedure This was a 2D Doppler, Color Flow transthoracic echocardiogram. Very technically difficult study. Echo done post heart cath. Contrast injection performed. Limited views were obtained. Suggest echo be repeated at another time to better assess AV. Exam performed portable in patient room. The exam was abbreviated due to the COVID 19 protocol. Left Ventricle Normal LV size. Left ventricular systolic function is normal. The estimated ejection fraction is 65 %. No regional wall motion abnormalities noted. Aortic Valve Mild focal aortic valve calcification. Peak aortic valve gradient 83 mmHg. Mean aortic valve gradient 52 mmHg. Pericardium/Pleural No pericardial effusion. Medication Diluted definity 3ml given slow IV push to enhance endocardial definition. Time Measurements MV dec time: 0.40 sec Doppler Measurements & Calculations MV E max jimmy: 105.7 cm/sec Lat Peak E' Jimmy: 9.0 cm/sec Med Peak E' Jimmy: 7.7 cm/sec MV A max jimmy: 118.2 cm/sec E/E' lat: 11.8 E/E' med: 13.7 MV E/A: 0.89 MV V2 max: 122.3 cm/sec MV P1/2t max jimmy: 123.3 cm/sec Ao V2 max: 455.5 cm/sec MV max P.0 mmHg MV P1/2t: 110.9 msec Ao max P.0 mmHg MV V2 mean: 58.4 cm/sec Ao V2 mean: 344.0 cm/sec MV mean P.8 mmHg MV dec slope: 325.7 cm/sec2 Ao mean P.8 mmHg MV V2 VTI: 49.9 cm MVA(P1/2t): 2.0 cm2 Ao V2 VTI: 115.9 cm LV V1 max: 137.8 cm/sec LV V1 max P.6 mmHg LV V1 mean P.7 mmHg LV V1 mean: 87.5 cm/sec LV V1 VTI: 34.3 cm Interpretation Summary Normal LV size. Left ventricular systolic function is normal. The estimated ejection fraction is 65 %. Mean aortic valve gradient 52 mmHg.Probable aortic stenosis We will recommend repeating echocardiogram in 6 weeks for better look at the aortic valve. Contrast injection was performed. Ordering Physician: Perez Kenyon Referring Physician: Chun Schneider Performed By: Dean Glynn RCS
[2020-08-19] MEDS: Niacin SA 500 MG Tablet PO (22:59)
[2020-08-19] MEDS: Ibuprofen 200 MG Tablet PO (22:59)
[2020-08-19] MEDS: Pregabalin 50 MG Capsule 100 MG PO (22:59)
[2020-08-20] VITALS (15 sets, daily range): BP systolic 111–142; BP diastolic 62–83; PULSE 39–69; RESP 18; TEMP 36.5–36.6; O2SAT 95–100
[2020-08-20] MEDS: Pregabalin 50 MG Capsule 100 MG PO (05:49)
[2020-08-20 07:19] LABS: AST(SGOT) 16 U/L (15-37); Alanine Aminotransfer ALT/SGPT 27 U/L (16-61); Alkaline Phosphatase 71 U/L (45-117); Anion Gap 5 (5-15); BUN 21 mg/dL (7-18); BUN/Creat Ratio 27.3 RATIO (10-20); Chloride 107 mmol/L (98-107); Creatinine, Serum 0.77 mg/dL (0.70-1.30); EST Glomerular Filtration Rate 107 mL/min (>60); Est Glom Filt Rate - Afr Amer 130 mL/min (>60); Estimated Creatinine Clearance 77.39 ml/min; Globulin 2.9 g/dL (2.2-4.2); Glucose 90 mg/dL (74-106); Magnesium 2.2 mg/dL (1.6-2.6); Potassium 3.9 mmol/L (3.5-5.1); Protein, Total 5.9 g/dL (6.4-8.2); Sodium Level 141 mmol/L (136-145); Thyroid Stim Hormone (TSH) 1.94 uIU/mL (0.358-3.74)
--- NOTE | 2020-08-20 07:40 | CON.PCM_ITS ---
Reason for Consult Date of Consultation: 08/20/20 Reason for Consultation: Bradycardia and abnormal cardiac enzymes History of Present Illness: The patient is a 64 year old M with a past medical history significant for hypertension who woke up yesterday morning with a complaint of dizziness which started after he tried to wake up from bed. He had another episode as well. He checked his heart rate and he found that it was below 50 and he presented to the emergency room. He was seen in the emergency room he was noted to be in sinus bradycardia. He has had no chest pain and has had previous episodes of dizziness and vertigo in the past. He however has been complaining of bilateral shoulder pain. He has had no shortness of breath no paroxysmal nocturnal dyspnea or pedal edema. Cardiac enzymes that were obtained have been noted to be abnormal with evidence of myocardial damage. Cardiology was called to see him and evaluate him. He says that he feels well at this time. He is on no rate limiting medications. Past Medical History Allergies/Adverse Reactions: Allergies hydromorphone HCl [From Dilaudid] Allergy (Verified 08/19/20 14:42) Other Home Medications: Ambulatory Orders Medication Instructions Recorded Furosemide [Lasix] 40 mg PO DAILY 02/14/15 Niacin 500 mg PO QHS 02/14/15 [place]-3 Acid Ethyl Esters [Lovaza] 2 gm PO DAILY 02/14/15 Potassium Chloride [K-Dur] 20 meq PO DAILY 02/14/15 Testosterone Cypionate 1 ml IM Q14D 02/14/15 [Depo-Testosterone] Vitamin B Complex 1 ea SL BID 02/14/15 5-Hydroxytryptophan (5-Htp) [5-Htp] 100 mg PO BID 03/09/17 Folic Acid 0.8 mg PO DAILY 03/09/17 Lisdexamfetamine Dimesylate 60 mg PO DAILY 03/09/17 [Vyvanse] Ibuprofen [Advil] 200 mg PO Q6H PRN PRN 01/03/18 pregabalin 75 mg capsule 100 mg PO TID 11/17/18 Amlodipine [Norvasc] 10 mg PO DAILY 07/12/19 Aspirin [Aspirin, Baby] 81 mg PO DAILY@0800 07/12/19 Benazepril HCl [Lotensin] 40 mg PO DAILY 07/12/19 Ergocalciferol [Vitamin D] 50,000 unit PO Q7D 08/19/20 Past Medical History (Chronic Problems): Chronic Problems (Last Reviewed 06/17/20 @ 11:48 by Jahaira Abdalla) Morbid obesity with BMI of 45.0-49.9, adult (Chronic) Colonic polyp (Chronic) Hypertension (Chronic) Allergic rhinitis (Chronic) Dyslipidemia (Chronic) Hypogonadism in male (Chronic) - *Family History Maternal History Items: No pertinent history Smoking Status: Former smoker Tobacco Use: Cigars, Pipe Alcohol: None Drugs: None Review of Systems - Review of Systems General: Denies: Fever, Night Sweats, Fatigue HEENT: Denies: Vision Change Cardiovascular: Reports: Dizziness. Denies: Chest Discomfort, Shortness of Breath, Orthopnea, PND, Peripheral Edema, Palpitations, Lightheadedness, Near Syncope, Syncope Respiratory: Denies: Cough, Sputum Production, Hemoptysis Gastrointestinal: Denies: Hematemesis, Hematochezia, Melena Genitourinary: Denies: Dysuria, Hematuria Skin: Denies: Rash Neurological: Reports: Dizziness Psychiatric: Denies: Anxiety Hematologic/ Lymphatic: Denies: Lymph Node Enlargement, Anemia Objective: Vital Signs Temp Pulse Resp BP Pulse Ox 97.7 F L 39 L 18 111/67 97 08/20/20 05:55 08/20/20 07:17 08/20/20 05:55 08/20/20 05:55 08/20/20 05:55 Oxygen Delivery Method Room Air Weight: 297 lb Body Mass Index (BMI) 41.4 Intake and Output for Last 24 Hours 08/18/20 08/19/20 08/20/20 23:59 23:59 23:59 Intake Total 727.5 / 727.5 Balance 727.5 / 727.5 08/19/20 15:15: WBC 5.0, RBC 4.84, Hgb 15.1, Hct 44.0, MCV 90.9, MCH 31.2, MCHC 34.3, Plt Count 271, MPV 9.6, Immature Gran % (Auto) 0.200, Neut % (Auto) 49.9, Lymph % (Auto) 32.3, [place] % (Auto) 8.5, Eos % (Auto) 7.3 H, Baso % (Auto) 1.8 H, Absolute Neuts (auto) 2.5, Nucleated RBC % 0 08/19/20 15:15: Sodium 143, Potassium 4.1, Chloride 107, Carbon Dioxide 31.0, Anion Gap 5, BUN 18, Creatinine 0.83, Est GFR (MDRD) Af Amer 119, Est GFR (MDRD) Non-Af 98, BUN/Creatinine Ratio 21.7 H, Glucose 96, Calcium 9.0, Troponin I 0.062 H 08/19/20 18:35: Troponin I 0.063 H 08/19/20 21:10: Troponin I 0.058 H 08/20/20 05:45: Sodium 141, Potassium 3.9, Chloride 107, Carbon Dioxide 29.0, Anion Gap 5, BUN 21 H, Creatinine 0.77, Est GFR (MDRD) Af Amer 130, Est GFR (MDRD) Non-Af 107, BUN/Creatinine Ratio 27.3 H, Glucose 90, Calcium 8.0 L, Magnesium 2.2, Total Bilirubin 0.60, Troponin I 0.057 H Rhythm: EKG: Sinus bradycardia with no acute changes ECHO: Stress Test: Cardiac Cath: PCI: CT Surgery: Holter monitor: EPS: PPM: CXR: Chest CT Scan: Assessment/Plan 1. Dizziness with abnormal cardiac enzymes * He does present with dizziness with a previous history of hypertension and is noted to have abnormal cardiac enzymes. These are of some concern. He does not have any previous rate limiting medications to explain the bradycardia arrhythmia. I would recommend that we further evaluate the above cardiac enzymes either with stress testing or cardiac catheterization. Risk benefits and alternatives of been explained to him he understands and agrees to proceed. * Will check TSH for bradycardia. 2. Hypertension * His blood pressure appears to be under good control on the current medical therapy and I will not recommend that we make any other major changes. * Will continue to follow the above. * * Thank you for allowing me to participate in the care of your patient. Please don't hesitate to call if any issues arise. * Addendum: Cardiac catheterization performed this morning demonstrates no high-grade obstructive lesions. Mild aortic stenosis is present. This will be confirmed with an echocardiogram. If the above is unremarkable patient can be discharged for outpatient follow-up.
--- NOTE | 2020-08-20 07:57 | PCM.PN.HOSP ---
Patient Problems: Active and Suspected Problems (Last Reviewed 06/17/20 @ 11:48 by Jahaira Abdalla) Bradycardia with 41-50 beats per minute (Acute) Dizziness and giddiness (Acute) Vitals/I&O's: Vital Signs Temp Pulse Resp BP Pulse Ox 97.7 F L 39 L 18 111/67 97 08/20/20 05:55 08/20/20 07:17 08/20/20 05:55 08/20/20 05:55 08/20/20 05:55 Oxygen Delivery Method Room Air Weight: 297 lb Body Mass Index (BMI) 41.4 Intake and Output for Last 24 Hours 08/18/20 08/19/20 08/20/20 23:59 23:59 23:59 Intake Total 727.5 / 727.5 Balance 727.5 / 727.5 Laboratory Results 08/19/20 15:15: WBC 5.0, RBC 4.84, Hgb 15.1, Hct 44.0, MCV 90.9, MCH 31.2, MCHC 34.3, RDW Std Deviation 40.8, RDW Coeff of Shahzad 12.1, Plt Count 271, MPV 9.6, Immature Gran % (Auto) 0.200, Neut % (Auto) 49.9, Lymph % (Auto) 32.3, [place] % (Auto) 8.5, Eos % (Auto) 7.3 H, Baso % (Auto) 1.8 H, Absolute Neuts (auto) 2.5, Absolute Lymphs (auto) 1.60, Nucleated RBC % 0 08/19/20 15:15: Sodium 143, Potassium 4.1, Chloride 107, Carbon Dioxide 31.0, Anion Gap 5, BUN 18, Creatinine 0.83, Estim Creat Clear Calc 93.24, Est GFR (MDRD) Af Amer 119, Est GFR (MDRD) Non-Af 98, BUN/Creatinine Ratio 21.7 H, Glucose 96, Calcium 9.0, Troponin I 0.062 H 08/19/20 18:35: Troponin I 0.063 H 08/19/20 21:10: Troponin I 0.058 H 08/20/20 05:45: Sodium 141, Potassium 3.9, Chloride 107, Carbon Dioxide 29.0, Anion Gap 5, BUN 21 H, Creatinine 0.77, Estim Creat Clear Calc 77.39, Est GFR (MDRD) Af Amer 130, Est GFR (MDRD) Non-Af 107, BUN/Creatinine Ratio 27.3 H, Glucose 90, Calcium 8.0 L, Magnesium 2.2, Total Bilirubin 0.60, AST 16, ALT 27, Alkaline Phosphatase 71, Troponin I 0.057 H, Total Protein 5.9 L, Albumin 3.0 L, Globulin 2.9, Albumin/Globulin Ratio 1.0, TSH 1.94 Current Medications Al Hydroxide/Mg Hydroxide (Mag Hydrox/Al Hydrox/Simeth 30 Ml Udc) 30 ml PO Q6H PRN PRN PRN Reason: Gastric Burning Amlodipine Besylate (Amlodipine 5 Mg Tablet) 5 mg PO DAILY [facility] Aspirin (Aspirin 81 Mg Tab.Chew) 81 mg PO DAILY@0800 [facility] Enoxaparin Sodium (Enoxaparin 40 Mg/0.4 Ml Syringe) 40 mg SC DAILY [facility] Furosemide (Furosemide 40 Mg Tablet) 40 mg PO DAILY [facility] Hydralazine HCl (Hydralazine 20 Mg/Ml Vial) 10 mg IV Q4H PRN PRN PRN Reason: SBP > 160 Sodium Chloride () 250 mls @ 15 mls/hr IV .[id number] PRN PRN Reason: Saline Flush Sodium Chloride () 250 mls @ 15 mls/hr IV .[id number] PRN PRN Reason: Additional IVPB Infusion Sodium Chloride () 1,000 mls @ 0 mls/hr IV .Q0M [facility] Ibuprofen (Ibuprofen 200 Mg Tablet) 200 mg PO Q6H PRN PRN PRN Reason: Pain Score 1-10 Last Admin: 08/19/20 22:59 Dose: 200 mg Documented by: Lisinopril (Lisinopril 40 Mg Tablet) 40 mg PO DAILY [facility] Melatonin (Melatonin 3 Mg Tablet) 3 mg PO QHS PRN PRN PRN Reason: INSOMNIA Niacin (Niacin Sa 500 Mg Tablet) 500 mg PO QHS [facility] Last Admin: 08/19/20 22:59 Dose: 500 mg Documented by: Non-Formulary Medication (Lisdexamfetamine Dimesylate [Vyvanse]) 60 mg PO DAILY [facility] [id number] Ethyl Esters ([place]edar-3 Acid Ethyl Esters 1 Gm Capsule) 2 gm PO DAILY [facility] Potassium Chloride (Potassium Chloride 20 Meq Tablet) 20 meq PO DAILYCM [facility] Pregabalin (Pregabalin 50 Mg Capsule) 100 mg PO TID [facility] Last Admin: 08/20/20 05:49 Dose: 100 mg Documented by: Sodium Chloride (0.9% Saline Lock 10 Ml Syringe) 10 - 40 ml IV UD PRN PRN Reason: SALINE FLUSH STROKE Vital Signs/Narrative: Vital Signs Temp Pulse Resp BP Pulse Ox 08/20/20 07:17 39 L 08/20/20 06:53 48 L 08/20/20 05:55 97.7 F L 55 L 18 111/67 97 Medical Necessity - Tobacco Use Smoking Status: Former smoker Tobacco Use: Cigars, Pipe Assessment/Plan All Active Problems (Last Reviewed 06/17/20 @ 11:48 by Jahaira Abdalla) Bradycardia with 41-50 beats per minute (Acute) Dizziness and giddiness (Acute) Conjunctivitis, left eye (Acute) Left shoulder strain (Acute) Contusion of left knee (Acute) Left shoulder pain (Acute) Lower GI bleed (Acute)
[2020-08-20] MEDS: amLODIPine 5 MG Tablet PO (08:01)
[2020-08-20] MEDS: Aspirin 81 MG TAB.CHEW PO (08:01)
[2020-08-20] MEDS: Lisinopril 40 MG Tablet PO (08:01)
--- NOTE | 2020-08-20 09:18 | CL.D_ITS ---
Patient Name: YOHANA MARTINEZ Study Date: 08/20/2020 Performing: Fred Bond MD Ht: 70.86 inches 180 cm : 1955 Wt: 297.62 lbs 135 kg Age: 64 Gender: male BSA: 2.49 PROCEDURE(S) PERFORMED [id number]/LV CLINICAL PROFILE AND INDICATIONS Indications: Suspected CAD Heart Failure: None Stress/Imaging Stress/Image Study Performed: No CAD Presentations: Symptom unlikely to be ischemic. CONCLUSIONS Mild coronary artery disease with no high-grade obstructive lesions noted RECOMMENDATIONS Medical therapy DESCRIPTION OF PROCEDURE The patient arrived to the procedure lab. The risks and benefits of the procedure as well as a full d escription of our services here and current unavailability of surgical backup were fully explained to the patient and/or their significant other prior to the catheterization. The Timeout was completed, verifying the correct patient and procedure. The patient's procedural site was prepped and draped in the usual fashion. Local anesthetic was given subcutaneously to right radial region with Lidocaine 2% . Using a modified Seldinger technique, arterial access was obtained via the right radial artery, a 6 Fr sheath was inserted. Left Coronary Artery selective angiography was performed in multiple views u sing a 5 Fr. 4.0 Davidson catheter. Right Coronary Artery selective angiography was then performed in mu ltiple views using a 5 Fr. 4.0 Davidson catheter. Left Ventriculography was performed in LUND projection using a 5 Fr. Pigtail catheter. LV to AO pullback pressures were then recorded.The arterial sheath was pulled and a TR Band was applied for hemostasis w/ 11ml air CORONARY ANGIOGRAPHY DOMINANCE: Right Dominant LEFT HEART ASSESSMENT Left Ventricular Ejection Fraction: by LV Gram 60 % Normal LV wall motion Normal Left Ventricular systolic function LEFT MAIN: Angiographically normal LEFT ANTERIOR DESCENDING ARTERY: Moderate luminal irregularities up to 50% CIRCUMFLEX ARTERY: Mild luminal irregularities less than 30% RIGHT CORONARY ARTERY: Mild luminal irregularities less than 30% COMPLICATIONS No Complications PROCEDURE MEDICATIONS Versed 1 mg IV Fentanyl 50 mcg IV Oxygen: 2 L/min via nasal cannula Heparin diluted in 23cc Heparinized saline. 1/2 cocktail dose given 08/20/2020 08:55:12 IV Bolus: .9 NaCl 250 ml total 08/20/2020 08:58:42 SUMMARY OF HEMODYNAMIC DATA Time AIR REST ECG 08:39:58 AO 87/63 (76) SA 08:58:22 AO 108/72 (91) 09:05:01 LV 165/10, 19 09:10:00 LV 161/16, 23 09:10:07 LV 154/16, 21 09:10:48 LVp 154/22, 0 09:10:52 AOp 121/77 (97) 09:10:57 Signed By Fred Bond MD On 08/20/2020 9:18:02 AM Fred Bond MD
--- NOTE | 2020-08-20 09:18 | CASEMGMT ---
According to the [facility] website, the following are in-network tertiary facilities: [facility], [place], [facility], [facility], [facility], [facility], [facility], and . Rosana QUISPE CM
[2020-08-20] MEDS: 0.9% Normal Saline 1,000 ML 75 ML IV (11:33)
[2020-08-20] MEDS: Omega-3 Acid Ethyl Esters 1 GM Capsule 2 GM PO (11:33)
[2020-08-20] MEDS: Furosemide 40 MG Tablet PO (11:33)
--- NOTE | 2020-08-20 11:51 | DCINST_ITS ---
- Discharge Diagnoses Current Active Problems: Current Active and Chronic Problems (Last Reviewed 06/17/20 @ 11:48 by Jahaira Abdalla) 1. Bradycardia with associated dizziness, lightheadedness with recent history of exertional dyspnea, unclear specific etiology 2. Nonocclusive CAD (08/20/2020 cardiac catheterization with mild coronary disease with no high-grade obstructive lesions with medical therapy recommended) 3. Hypertension 4. Insert hyperlipidemia 5. History of prostate cancer 6. Allergic rhinitis 7. Osteoarthritis 8. Morbid obesity You will use the following diet at home:: Cardiac Your food should be the consistency of: Regular Your liquids should be the consistency of: Regular/Thin Discharge Activity: - - Encourage cautious position changes given onset of some lightheadedness and dizziness occasionally although orthostatics were noted to be negative. Weight Bearing Status: Weight bearing as tolerated Call your doctor if you observe: Fever of 101 or Higher, Inability to urinate, Inability to have a bowel movement, Shortness of breath, Dizziness, Fainting spells, Chest pain, Uncontrolled pain, - - Strongly encourage continued mild to moderate activity until clinically improved given history of 2 days of lightheadedness and dizziness. Instructions: ED Bradycardia, ED Dizziness, Uncertain Cause Additional Instructions: Per discussion with cardiology recommend continued current medical therapy with close monitoring of your blood pressure at home and continued slow positional changes. Your orthostatic vital signs which were obtained when laying down, seated and standing were not remarkable however you did have episodes of what lower heart rate however this was often without symptoms. Cardiology performed a cardiac catheterization as you had mildly abnormal cardiac enzymes and this was notable for mild nonobstructive coronary artery disease with recommended continued aspirin therapy as well as control of blood pressure. Recommend given her history of hyperlipidemia consideration for resumption of statin therapy if amenable. Allergies/Adverse Reactions: Allergies hydromorphone HCl [From Dilaudid] Allergy (Verified 08/19/20 14:42) Other Medications to take at Discharge Furosemide [Lasix] 40 mg PO DAILY 02/14/15 Niacin 500 mg PO QHS 02/14/15 [place]-3 Acid Ethyl Esters [Lovaza] 2 gm PO DAILY 02/14/15 Potassium Chloride [K-Dur] 20 meq PO DAILY 02/14/15 Testosterone Cypionate [Depo-Testosterone] 1 ml IM Q14D 02/14/15 Vitamin B Complex 1 ea SL BID 02/14/15 5-Hydroxytryptophan (5-Htp) [5-Htp] 100 mg PO BID 03/09/17 Folic Acid 0.8 mg PO DAILY 03/09/17 Lisdexamfetamine Dimesylate [Vyvanse] 60 mg PO DAILY 03/09/17 Ibuprofen [Motrin] 200 mg PO Q6H PRN PRN 01/03/18 pregabalin 75 mg capsule 100 mg PO TID 11/17/18 Amlodipine [Norvasc] 10 mg PO DAILY 07/12/19 Aspirin [Aspirin, Baby] 81 mg PO DAILY@0800 07/12/19 Benazepril HCl [Lotensin] 40 mg PO DAILY 07/12/19 Ergocalciferol [Vitamin D] 50,000 unit PO Q7D 08/19/20 Primary Care Physician: Chun Schneider DO [Primary Care Provider] - Please follow up with your Primary Care Physician in: Follow-up within 3 to 5 days to review admission. Test Results: Test results from this visit will be discussed in further detail at your follow- up appointment, if applicable. Please Follow Up With: Fred Bond MD When: Follow-up with Cardiology in 3 months, call earlier if concerns. Proposed Discharge Date: 08/20/20
--- NOTE | 2020-08-20 11:56 | PCM.DC.SUM ---
Discharge Date and Diagnosis - Problem List Patient Problems: Active and Suspected Problems (Last Updated 08/20/20 @ 13:54 by Cecy Cespedes) Bradycardia with 41-50 beats per minute (Acute) Dizziness and giddiness (Acute) Date of Admission: 08/19/20 Date of Discharge: 08/20/20 - Primary Discharge Diagnosis Acute Problems: Active Problems (Last Reviewed 06/17/20 @ 11:48 by Jahaira Abdalla) 1. Bradycardia with associated dizziness, lightheadedness with recent history of exertional dyspnea with indeterminant cardiac enzymes, unclear specific etiology 2. Nonocclusive CAD (08/20/2020 cardiac catheterization with mild coronary disease with no high-grade obstructive lesions with medical therapy recommended) 3. Suspected aortic stenosis with mean AV gradient 52 mmHg 4. Hypertension 5. Insert hyperlipidemia 6. History of prostate cancer 7. Allergic rhinitis 8. Osteoarthritis 9. Morbid obesity - Secondary Discharge Diagnosis Chronic Problems: Chronic Problems (Last Reviewed 06/17/20 @ 11:48 by Jahaira Abdalla) Morbid obesity with BMI of 45.0-49.9, adult (Chronic) Colonic polyp (Chronic) Hypertension (Chronic) Allergic rhinitis (Chronic) Dyslipidemia (Chronic) Hypogonadism in male (Chronic) Hospital Course and Treatment Cardiology Dr. Bond Operations: None Procedures: 2-D Echocardiogram, Cardiac catheterization, EKG Summary of Care Provided: The patient is a 64 y/o M w/ PMHx: HTN, HLD, Hx prostate CA, Morbid obesity, OA, Allergic rhinitis who presented to the [facility] ED on 08/19/20 with history of 2-day history of intermittent episodes of dizziness and lightheadedness as well as reported intermittent bradycardia, using his 's home devices to assess although not necessarily associated with the bradycardia as well as some mild exertional dyspnea and easy fatigability prompting ED evaluation. Work-up in the ED included initial troponin 0 0.062, unremarkable CBC, unremarkable BMP, TSH normal 1.94, EKG with bradycardia with no acute evidence of ischemia. Patient was admitted to PCU, maintain on telemetry monitoring, orthostatic vital signs were unremarkable, as noted TSH was normal, cyclical cardiac enzymes were obtained and remained similar with most recent 08/20/2020 0.057. Echocardiogram was obtained with noted normal LV size, normal LV systolic function, EF 65%, mean aortic gradient 52 mmHg with suspected probable aortic stenosis with recommended follow-up echocardiogram in 6 weeks per cardiology. Cardiology was consulted and patient also underwent cardiac catheterization with noted mild nonobstructive coronary disease with recommended continued medical therapy. Cardiology recommended continuation of patient's current home regimen with no changes necessary given controlled blood pressure at this time. Covid testing was also obtained and PCR was negative. Patient was discharged home in improved stable condition with recommended follow-up with cardiology for repeat echocardiogram and continued current home regimen with follow-up with primary care physician within 3 to 5 days to review admission. DAY OF DISCHARGE PROGRESS NOTE: Subjective: Patient without acute event overnight per self and nursing report. Patient denies any current lightheadedness or dizziness. Reviewed results from cardiac catheterization and current work-up. Patient denies fever, chills, nausea, emesis, abdominal pain, chest pain or dyspnea. Patient agreeable to discharge to home with plan to follow-up with cardiology as well as PCP. Patient will be discharged with follow-up with primary care physician within 3-5 days in addition to follow-up with cardiology in 6 weeks for repeat echo or echocardiogram with PCP then follow-up with cardiology. Objective: T 97.7, heart rate 52, BP 128/78, respiratory rate 18, 98% on room air. Physical Examination: General: awake, alert, oriented x 3 and cooperative, seated upright in the PCU bed, NAD. Skin: normal color, turgor, no icterus, cyanosis. HEENT: AT/NC, EOMI, PERRLA, MMM. Lungs: CTA bilaterally, moderate effort, mild decrease BL bases, no rales, ronchi or wheezing; Heart: Bradycardic with regular rhythm; no gallop, rub audible. Abdomen: soft, morbidly obese, NTTP, ND, normal BS. Extremities: no cyanosis or clubbing, mild bilateral ankle nonpitting edema. Neurological: patient awake, alert, oriented as noted; cognitive function appears intact upon questioning; pupils equally reactive to light and accomodation; cranial nerves II-XII grossly normal, moving all 4 extremities, strength improving, mildly globally decreased. Psychiatric: affect appears improved, normal, no acute evidence of depressive or anxiety feelings. Assessment and Plan: Please see hospital summary above. Patient Problems: Active and Suspected Problems (Last Updated 08/20/20 @ 13:54 by Cecy Kilner) Bradycardia with 41-50 beats per minute (Acute) Dizziness and giddiness (Acute) - Physical Exam Vitals/I&O's: Vital Signs Temp Pulse Resp BP Pulse Ox 97.8 F 50 L 18 123/75 H 97 08/20/20 09:30 08/20/20 11:15 08/20/20 11:15 08/20/20 11:15 08/20/20 11:15 Oxygen Delivery Method Room Air Weight: 297 lb Body Mass Index (BMI) 41.4 Intake and Output for Last 24 Hours 08/18/20 08/19/20 08/20/20 23:59 23:59 23:59 Intake Total 727.5 / 727.5 Balance 727.5 / 727.5 Laboratory Results 08/19/20 15:15: WBC 5.0, RBC 4.84, Hgb 15.1, Hct 44.0, MCV 90.9, MCH 31.2, MCHC 34.3, RDW Std Deviation 40.8, RDW Coeff of Shahzad 12.1, Plt Count 271, MPV 9.6, Immature Gran % (Auto) 0.200, Neut % (Auto) 49.9, Lymph % (Auto) 32.3, Bee % (Auto) 8.5, Eos % (Auto) 7.3 H, Baso % (Auto) 1.8 H, Absolute Neuts (auto) 2.5, Absolute Lymphs (auto) 1.60, Nucleated RBC % 0 08/19/20 15:15: Sodium 143, Potassium 4.1, Chloride 107, Carbon Dioxide 31.0, Anion Gap 5, BUN 18, Creatinine 0.83, Estim Creat Clear Calc 93.24, Est GFR (MDRD) Af Amer 119, Est GFR (MDRD) Non-Af 98, BUN/Creatinine Ratio 21.7 H, Glucose 96, Calcium 9.0, Troponin I 0.062 H 08/19/20 18:35: Troponin I 0.063 H 08/19/20 21:10: Troponin I 0.058 H 08/20/20 05:45: Sodium 141, Potassium 3.9, Chloride 107, Carbon Dioxide 29.0, Anion Gap 5, BUN 21 H, Creatinine 0.77, Estim Creat Clear Calc 77.39, Est GFR (MDRD) Af Amer 130, Est GFR (MDRD) Non-Af 107, BUN/Creatinine Ratio 27.3 H, Glucose 90, Calcium 8.0 L, Magnesium 2.2, Total Bilirubin 0.60, AST 16, ALT 27, Alkaline Phosphatase 71, Troponin I 0.057 H, Total Protein 5.9 L, Albumin 3.0 L, Globulin 2.9, Albumin/Globulin Ratio 1.0, TSH 1.94 08/20/20 10:05: COVID-19 ([place]) Pending Current Medications Al Hydroxide/Mg Hydroxide (Mag Hydrox/Al Hydrox/Simeth 30 Ml Udc) 30 ml PO Q6H PRN PRN PRN Reason: Gastric Burning Amlodipine Besylate (Amlodipine 5 Mg Tablet) 5 mg PO DAILY [facility] Last Admin: 08/20/20 08:01 Dose: 5 mg Documented by: Aspirin (Aspirin 81 Mg Tab.Chew) 81 mg PO DAILY@0800 [facility] Last Admin: 08/20/20 08:01 Dose: 81 mg Documented by: Enoxaparin Sodium (Enoxaparin 40 Mg/0.4 Ml Syringe) 40 mg SC DAILY [facility] Last Admin: 08/20/20 08:02 Dose: Not Given Documented by: Furosemide (Furosemide 40 Mg Tablet) 40 mg PO DAILY [facility] Last Admin: 08/20/20 11:33 Dose: 40 mg Documented by: Hydralazine HCl (Hydralazine 20 Mg/Ml Vial) 10 mg IV Q4H PRN PRN PRN Reason: SBP > 160 Sodium Chloride () 250 mls @ 15 mls/hr IV .[id number] PRN PRN Reason: Saline Flush Sodium Chloride () 250 mls @ 15 mls/hr IV .[id number] PRN PRN Reason: Additional IVPB Infusion Sodium Chloride () 1,000 mls @ 15 mls/hr IV .Q48H [facility] Last Admin: 08/20/20 11:33 Dose: Not Given Documented by: Sodium Chloride () 1,000 mls @ 75 mls/hr IV .[id number] [facility] Last Admin: 08/20/20 11:33 Dose: 75 mls/hr Documented by: Ibuprofen (Ibuprofen 200 Mg Tablet) 200 mg PO Q6H PRN PRN PRN Reason: Pain Score 1-10 Last Admin: 02/07/21 22:59 Dose: 200 mg Documented by: Lisinopril (Lisinopril 40 Mg Tablet) 40 mg PO DAILY [facility] Last Admin: 08/20/20 08:01 Dose: 40 mg Documented by: Melatonin (Melatonin 3 Mg Tablet) 3 mg PO QHS PRN PRN PRN Reason: INSOMNIA Niacin (Niacin Sa 500 Mg Tablet) 500 mg PO QHS [facility] Last Admin: 08/19/20 22:59 Dose: 500 mg Documented by: Non-Formulary Medication (Lisdexamfetamine Dimesylate [Vyvanse]) 60 mg PO DAILY [facility] Iopxl-4-Oknk Ethyl Esters ([place]-3 Acid Ethyl Esters 1 Gm Capsule) 2 gm PO DAILY [facility] Last Admin: 08/20/20 11:33 Dose: 2 gm Documented by: Potassium Chloride (Potassium Chloride 20 Meq Tablet) [facility] Admin: 08/20/20 08:01 Dose: 20 meq Documented by: Pregabalin (Pregabalin 50 Mg Capsule) 100 mg PO TID [facility] Last Admin: 08/20/20 05:49 Dose: 100 mg Documented by: Sodium Chloride (0.9% Saline Lock 10 Ml Syringe) 10 - 40 ml IV UD PRN PRN Reason: SALINE FLUSH Discharge Activity: - - Encourage cautious position changes given onset of some lightheadedness and dizziness occasionally although orthostatics were noted to be negative. Weight Bearing Status: Weight bearing as tolerated Call your doctor if you observe: Fever of 101 or Higher, Inability to urinate, Inability to have a bowel movement, Shortness of breath, Dizziness, Fainting spells, Chest pain, Uncontrolled pain, - - Strongly encourage continued mild to moderate activity until clinically improved given history of 2 days of lightheadedness and dizziness. Home Medications: Medications to take at Discharge Furosemide [Lasix] 40 mg PO DAILY 02/14/15 Niacin 500 mg PO QHS 02/14/15 [place]-3 Acid Ethyl Esters [Lovaza] 2 gm PO DAILY 02/14/15 Potassium Chloride [K-Dur] 20 meq PO DAILY 02/14/15 Testosterone Cypionate [Depo-Testosterone] 1 ml IM Q14D 02/14/15 Vitamin B Complex 1 ea SL BID 02/14/15 5-Hydroxytryptophan (5-Htp) [5-Htp] 100 mg PO BID 03/09/17 Folic Acid 0.8 mg PO DAILY 03/09/17 Lisdexamfetamine Dimesylate [Vyvanse] 60 mg PO DAILY 03/09/17 Ibuprofen [Motrin] 200 mg PO Q6H PRN PRN 01/03/18 pregabalin 75 mg capsule 100 mg PO TID 11/17/18 Amlodipine [Norvasc] 10 mg PO DAILY 07/12/19 Aspirin [Aspirin, Baby] 81 mg PO DAILY@0800 07/12/19 Benazepril HCl [Lotensin] 40 mg PO DAILY 07/12/19 Ergocalciferol [Vitamin D] 50,000 unit PO Q7D 08/19/20 Primary Care Physician: Chun Schneider DO [Primary Care Provider] - Please follow up with your Primary Care Physician in: Follow-up within 3 to 5 days to review admission. Please Follow Up With: Fred Bond MD When: Follow-up with Cardiology in 3 months, call earlier if concerns. Patient Instructions: ED Bradycardia, ED Dizziness, Uncertain Cause Disposition: Home Minutes spent on discharge:: 35 Patient Condition:: Fair Medical Necessity - Tobacco Use Smoking Status: Former smoker Tobacco Use: Cigars, Pipe Meaningful Use Info Meaningful Use Diagnoses (Choose all that apply): None applicable OBSV E&M: 37769 Observation care discharge
--- NOTE | 2020-08-20 12:24 | PHA.DC.MR ---
Pharmacy Service has performed discharge medication reconciliation for this patient. No new medications at time of discharge review. Medications reviewed are from previously reported home medications. Home Medications Furosemide [Lasix] 40 mg PO DAILY 02/14/15 Niacin 500 mg PO QHS 02/14/15 [place]-3 Acid Ethyl Esters [Lovaza] 2 gm PO DAILY 02/14/15 Potassium Chloride [K-Dur] 20 meq PO DAILY 02/14/15 Testosterone Cypionate [Depo-Testosterone] 1 ml IM Q14D 02/14/15 Vitamin B Complex 1 ea SL BID 02/14/15 5-Hydroxytryptophan (5-Htp) [5-Htp] 100 mg PO BID 03/09/17 Folic Acid 0.8 mg PO DAILY 03/09/17 Lisdexamfetamine Dimesylate [Vyvanse] 60 mg PO DAILY 03/09/17 Ibuprofen [Motrin] 200 mg PO Q6H PRN PRN 01/03/18 pregabalin 75 mg capsule 100 mg PO TID 11/17/18 Amlodipine [Norvasc] 10 mg PO DAILY 07/12/19 Aspirin [Aspirin, Baby] 81 mg PO DAILY@0800 07/12/19 Benazepril HCl [Lotensin] 40 mg PO DAILY 07/12/19 Ergocalciferol [Vitamin D] 50,000 unit PO Q7D 08/19/20 The patient's discharge medication list was reviewed for discrepancies and discrepancies were resolved.
== END 2020-08-20 09:19 | disposition home or self-care (01) ==
LOC: ED 16:22 → PCU 17:43
PROVIDERS: Admitting Provider Internal Medicine; Emergency Provider Emergency Medicine; PCP Family Medicine; Visit Provider Family Medicine
DX: R00.1 Bradycardia, unspecified (principal); R42 Dizziness and giddiness; E66.01 Morbid (severe) obesity due to excess calories; E78.5 Hyperlipidemia, unspecified; I10 Essential (primary) hypertension; I25.10 Atherosclerotic heart disease of native coronary artery without angina pectoris; G47.33 Obstructive sleep apnea (adult) (pediatric); Z68.41 Body mass index [BMI] 40.0-44.9, adult; Z85.46 Personal history of malignant neoplasm of prostate; M19.90 Unspecified osteoarthritis, unspecified site; Z79.899 Other long term (current) drug therapy; Z79.82 Long term (current) use of aspirin; Z87.891 Personal history of nicotine dependence
CPT/HCPCS: 36415; 80048; 80053; 83735; 84443; 84484; 85025; 87635; 93005; 93306; 93458; 96360; 96361; 99152; 99153; 99218; 99285; J7030; Q9957; A4216; C1769; C1894; C8929; G0378; Q9967; U0002

== ENCOUNTER → 2020-09-21 08:00 | Outpatient (CLI) | payer BC, SELFPAY ==
[2020-08-19 17:38] VITALS: BMI 41.4
--- NOTE | 2020-09-21 08:03 | ECHOCS_ITS ---
Reason For Study: valve replacement eval Procedure This was a 2D Doppler, Color Flow transthoracic echocardiogram. The study was technically difficult. Due to body habitus. Contrast injection was performed. Exam performed in department. Left Ventricle Normal LV size. Moderate concentric left ventricular hypertrophy. Left ventricular systolic function is normal. The estimated ejection fraction is 60 %. Stage 1 diastolic dysfunction. No regional wall motion abnormalities noted. Right Ventricle Normal RV size. Normal systolic function. Atria The left atrium is moderately enlarged. Normal right atrium. Tricuspid Valve Normal tricuspid valve. Mild to moderate (1-2+) tricuspid valve insufficiency. Pulmonary artery systolic pressure is 36 mmHg. Aortic Valve The aortic valve is not well visualized. Moderate focal aortic valve calcification. Peak aortic valve gradient 70 mmHg. Mean aortic valve gradient 43 mmHg. Severe aortic stenosis. Great Vessels Normal aortic root. The pulmonary artery is normal size. Normal inferior vena cava. Pericardium/Pleural No pericardial effusion. Medication 22 gauge I.V. with prn adaptor inserted into right arm. Diluted definity 4.0ml given slow IV push to enhance endocardial definition. MMode/2D Measurements & Calculations LVIDd: 5.5 cm IVSd: 1.6 cm LVOT diam: 2.0 cm LVIDs: 3.4 cm LVPWd: 1.6 cm LVOT area: 3.3 cm2 RVDd: 3.6 cm FS: 38.0 % Ao root diam: 2.5 cm LAV(MOD-bp): 100.4 ml LA A4 area: 25.8 cm2 LAV(MOD-bp) Indexed: 40.7 ml/m2 LAV(MOD-sp2): 99.5 ml LAV(MOD-sp4): 96.3 ml LA dimension(2D): 5.4 cm RA A4 area: 19.7 cm2 Time Measurements MV dec time: 0.36 sec Doppler Measurements & Calculations MV E max jimmy: 108.0 cm/sec Lat Peak E' Jimmy: 5.0 cm/sec Med Peak E' Jimmy: 5.0 cm/sec MV A max jimmy: 134.3 cm/sec E/E' lat: 21.5 E/E' med: 21.7 MV E/A: 0.80 Ao V2 max: 420.2 cm/sec LV V1 max: 198.2 cm/sec SV(LVOT): 137.3 ml Ao max P.7 mmHg LV V1 max P.4 mmHg Ao V2 mean: 316.1 cm/sec LV V1 mean P.8 mmHg Ao mean P.4 mmHg LV V1 mean: 142.1 cm/sec Ao V2 VTI: 88.7 cm LV V1 VTI: 41.8 cm ANGELICA(I,D): 1.5 cm2 ANGELICA(V,D): 1.5 cm2 PA V2 max: 86.1 cm/sec TR max jimmy: 290.4 cm/sec TR max P.7 mmHg Interpretation Summary Normal LV size. Moderate concentric left ventricular hypertrophy. Left ventricular systolic function is normal. The estimated ejection fraction is 60 %. Stage 1 diastolic dysfunction. Peak aortic valve gradient 70 mmHg. Mean aortic valve gradient 43 mmHg. Severe aortic stenosis. Contrast injection was performed. Ordering Physician: Fred Bond Referring Physician: Chun Schneider Performed By: Parvin Asher RDCS, RVT
== END ==
PROVIDERS: PCP Family Medicine; Referring Provider Internal Medicine Cardiovascular Disease; Visit Provider Internal Medicine Cardiovascular Disease
DX: Z95.2 Presence of prosthetic heart valve (principal)
CPT/HCPCS: 93306; Q9957; A4216; C8929

== ENCOUNTER → 2020-10-22 09:51 | Outpatient (CLI) | payer BC, SELFPAY ==
[2020-08-19 17:38] VITALS: BMI 41.4
[2020-10-22 11:09] LABS: Anion Gap 2 (5-15); BUN 12 mg/dL (7-18); BUN/Creat Ratio 13.7 RATIO (10-20); Chloride 107 mmol/L (98-107); Creatinine, Serum 0.88 mg/dL (0.70-1.30); EST Glomerular Filtration Rate 92 mL/min (>60); Est Glom Filt Rate - Afr Amer 111 mL/min (>60); Glucose 98 mg/dL (74-106); Potassium 4.1 mmol/L (3.5-5.1); Sodium Level 139 mmol/L (136-145)
--- NOTE | 2020-10-22 11:57 | ECHOTEE_ITS ---
Reason For Study: Valve Replacement Eval Medication CHIKA probe 6VT-D (SN [id number]) passed without difficulty. No complications were noted. Cetacaine Topical [place] given X4 orally. Versed 2 mg given slow IVP. Fentanyl 50 mcg given slow IVP. Performed a rapid injection of agitated mix of 9 cc saline and 1cc air to assess for atrial septal defect. Left Ventricle Normal LV size. Left ventricular systolic function is normal. The estimated ejection fraction is 65 %. No regional wall motion abnormalities noted. Right Ventricle Normal RV size. Normal systolic function. Atria Bubble contrast study negative for right to left interatrial shunt. The left atrium is mildly enlarged. Normal right atrium. Mitral Valve Normal mitral valve. Mild (1+) eccentric mitral valve insufficiency. Tricuspid Valve Normal tricuspid valve. Aortic Valve Trisinus/trileaflet aortic valve. Moderate focal aortic valve calcification. Severe aortic stenosis. Pulmonic Valve Normal pulmonic valve. Vessels Normal aortic root. Pericardium No pericardial effusion. ECHO/Echo Transesophageal (CHIKA) Interpretation Summary Normal LV size. Left ventricular systolic function is normal. The estimated ejection fraction is 65 %. The left atrium is mildly enlarged. Bubble contrast study negative for right to left interatrial shunt. Moderate focal aortic valve calcification. Severe aortic stenosis. Ordering Physician: Fred Bond Referring Physician: Chun Schneider Performed By: Debi Lundy, RDCS, RVT
--- NOTE | 2020-10-22 11:58 | PCM.HP.CAR ---
Problem List (1) Nonrheumatic aortic (valve) stenosis Status: Chronic History of Present Illness Date of Admission: 10/22/20 Chief Complaint: Evaluation of aortic valve The patient is a 65 year old M who had presented through the emergency room with shortness of breath and a syncopal spell. Patient was noted to be hypertensive. He was eventually evaluated with a cardiac catheterization which demonstrated nonobstructive coronary arteries. An echocardiogram performed for later demonstrated severe aortic valve stenosis. The patient is here for further delineation of his aortic valve anatomy. He denies any chest pain no shortness of breath no paroxysmal nocturnal dyspnea or pedal edema. [] Past Medical History Allergies/Adverse Reactions: Allergies hydromorphone HCl [From Dilaudid] Allergy (Verified 08/19/20 14:42) Other Home Medications: Ambulatory Orders Medication Instructions Recorded Furosemide [Lasix] 40 mg PO DAILY 02/14/15 Niacin 500 mg PO QHS 02/14/15 [place]-3 Acid Ethyl Esters [Lovaza] 2 gm PO DAILY 02/14/15 Potassium Chloride Oral Tablet 20 meq PO DAILY 02/14/15 [K-Dur] Testosterone Cypionate 1 ml IM Q14D 02/14/15 [Depo-Testosterone] Vitamin B Complex 1 ea SL BID 02/14/15 5-Hydroxytryptophan (5-Htp) [5-Htp] 100 mg PO BID 03/09/17 Folic Acid 0.8 mg PO DAILY 03/09/17 Lisdexamfetamine Dimesylate 60 mg PO DAILY 03/09/17 [Vyvanse] Ibuprofen [Motrin] 200 mg PO Q6H PRN PRN 01/03/18 pregabalin 75 mg capsule 100 mg PO TID 11/17/18 Amlodipine [Norvasc] 10 mg PO DAILY 07/12/19 Aspirin [Aspirin, Baby] 81 mg PO DAILY@0800 07/12/19 Benazepril HCl [Lotensin] 40 mg PO DAILY 07/12/19 Ergocalciferol [Vitamin D] 50,000 unit PO Q7D 08/19/20 Past Medical History (Chronic Problems): Chronic Problems (Last Updated 09/27/20 @ 07:54 by Cecy Cespedes) Hypoxemia (Chronic) Obstructive sleep apnea (Chronic) Nonrheumatic aortic (valve) stenosis (Chronic) Nonobstructive atherosclerosis of coronary artery (Chronic) Essential (primary) hypertension (Chronic) Morbid obesity with BMI of 45.0-49.9, adult (Chronic) Dyslipidemia (Chronic) - *Family History Maternal History Items: No pertinent history Smoking Status: Former smoker Alcohol: None Drugs: None Review of Systems - Review of Systems General: Denies: Fever, Night Sweats, Fatigue HEENT: Denies: Vision Change Cardiovascular: Reports: Shortness of Breath. Denies: Chest Discomfort, Orthopnea, PND, Peripheral Edema, Palpitations, Lightheadedness, Dizziness, Near Syncope, Syncope Respiratory: Denies: Cough, Sputum Production, Hemoptysis Gastrointestinal: Denies: Hematemesis, Hematochezia, Melena Genitourinary: Denies: Dysuria, Hematuria Skin: Denies: Rash Neurological: Reports: Dizziness Psychiatric: Reports: Anxiety Endocrine: Reports: Heat Intolerance Hematologic/ Lymphatic: Reports: Lymph Node Enlargement Subjectve: Pleasant gentleman in no distress at this time Objective: Body Mass Index (BMI) 41.4 General: Awake, Alert, Oriented x 3 HEENT: PERRL, EOMI, Sclera Non Icteric Neck: Supple, Good ROM, No Lymph Node Enlargement Lungs: Clear to auscultation Cardiovascular: Regular Rhythm, Normal S1, Normal S2, No Rubs, No Gallops Murmur Murmur: Grade 3/6, Early Systolic, LLSB Vascular: No Carotid Bruits, Normal Femoral Pulses, Normal Radial Pulses, Normal Dorsalis Pedal Pulse, Normal Posterior Tibial Pulses Abdomen: Bowel Sounds Present, Soft, Non Tender, No HSM, No Organomegaly Extremities: No Cyanosis, No Clubbing, No edema Musculoskeletal: No Erythema Skin: No Rashes Neurological: No Focal Motor or Sensory Deficit Psych/Mental Status: Appropriate VTE Information - Inpt Only VTE Present on Admission: No VTE Mechan Device Prophylaxis: None VTE Pharm Prophylaxis ordered?: No Reason prophylaxis not ordered:: Treatment Not Indicated 10/22/20 09:55: Sodium 139, Potassium 4.1, Chloride 107, Carbon Dioxide 30.0, Anion Gap 2 L, BUN 12, Creatinine 0.88, Est GFR (MDRD) Af Amer 111, Est GFR (MDRD) Non-Af 92, BUN/Creatinine Ratio 13.7, Glucose 98, Calcium 9.0 Rhythm: EKG: ECHO: Preserved left ventricular systolic function. Severe aortic stenosis noted Stress Test: Cardiac Cath: PCI: CT Surgery: Holter monitor: EPS: PPM: CXR: Chest CT Scan: Assessment/Plan 1. Severe symptomatic aortic stenosis present. The patient is scheduled to undergo a transesophageal echocardiogram. This would allow us to further define his coronary anatomy. Risk benefits alternatives have been explained to him he understands and agrees to proceed. Depending on the findings further recommendations will be made. Thank you for allowing me to participate in the care of your patient. Please don't hesitate to call if any issues arise.
== END ==
PROVIDERS: PCP Family Medicine; Referring Provider Internal Medicine Cardiovascular Disease; Visit Provider Internal Medicine Cardiovascular Disease
DX: R09.02 Hypoxemia (principal); G47.33 Obstructive sleep apnea (adult) (pediatric); I35.0 Nonrheumatic aortic (valve) stenosis; R77.8 Other specified abnormalities of plasma proteins; I25.10 Atherosclerotic heart disease of native coronary artery without angina pectoris; I10 Essential (primary) hypertension; R00.1 Bradycardia, unspecified; E66.01 Morbid (severe) obesity due to excess calories; E78.5 Hyperlipidemia, unspecified; Z68.42 Body mass index [BMI] 45.0-49.9, adult; B34.9 Viral infection, unspecified
CPT/HCPCS: 36415; 80048; 87426; 93312; 93320; 93325; C9803; J7040; A4216

== ENCOUNTER → 2020-12-03 13:37 | Outpatient (CLI) | payer BC, SELFPAY ==
[2020-08-19 17:38] VITALS: BMI 41.4
[2020-12-03 15:34] LABS: PSA,Total- Diagnostic 0.18 ng/mL (0.0-4.0)
== END ==
PROVIDERS: PCP Family Medicine; Referring Provider Urology; Visit Provider Urology
DX: Z85.46 Personal history of malignant neoplasm of prostate (principal)
CPT/HCPCS: 36415; 84153

== ENCOUNTER → 2021-02-25 07:55 | Outpatient (CLI) | payer BC, SELFPAY ==
[2021-01-25 09:03] VITALS: BMI 43.9
--- NOTE | 2021-02-25 07:57 | ECHOD_ITS ---
Reason For Study: VALVE REPLACEMENT EVAL Procedure This was a 2D Doppler, Color Flow transthoracic echocardiogram. The study was technically difficult. The study was technically limited. Due to body habitus. Contrast injection was performed. Exam performed in department. Left Ventricle Normal LV size. Left ventricular systolic function is normal. The estimated ejection fraction is 65 %. Stage 1 diastolic dysfunction. No regional wall motion abnormalities noted. Right Ventricle Normal RV size. Normal systolic function. Atria Normal left atrium. Normal right atrium. Mitral Valve Mitral valve not well visualized. Tricuspid Valve Normal tricuspid valve. Aortic Valve Peak aortic valve gradient 36 mmHg. Mean aortic valve gradient 20 mmHg. Bioprosthetic aortic valve. Pulmonic Valve The pulmonic valve is not well visualized. Great Vessels Normal aortic root. The pulmonary artery is normal size. Normal inferior vena cava. Pericardium/Pleural No pericardial effusion. Medication 22 gauge I.V. with prn adaptor inserted into right arm. Diluted definity 5.0ml given slow IV push to enhance endocardial definition. MMode/2D Measurements & Calculations LAV(MOD-bp): 72.5 ml LVAd ap4: 33.5 cm2 LVAd ap2: 36.7 cm2 LAV(MOD-bp) Indexed: 28.9 ml/m2 LVLd ap4: 8.7 cm LVLd ap2: 9.8 cm LAV(MOD-sp2): 68.6 ml EDV(MOD-sp4): 106.6 ml EDV(MOD-sp2): 114.1 ml LAV(MOD-sp4): 68.8 ml EDV(sp4-el): 109.6 ml EDV(sp2-el): 116.2 ml LVAs ap4: 17.8 cm2 LVAs ap2: 19.0 cm2 LVLs ap4: 7.6 cm LVLs ap2: 7.4 cm ESV(MOD-sp4): 37.8 ml ESV(MOD-sp2): 40.9 ml ESV(sp4-el): 35.6 ml ESV(sp2-el): 41.7 ml EF(MOD-sp4): 64.5 % EF(MOD-sp2): 64.1 % EF(sp4-el): 67.5 % SV(MOD-sp4): 68.7 ml SV(MOD-sp2): 73.2 ml SV(sp4-el): 74.0 ml LA A4 area: 22.4 cm2 RA A4 area: 20.0 cm2 Time Measurements MV dec time: 0.30 sec Doppler Measurements & Calculations MV E max jimmy: 120.6 cm/sec Lat Peak E' Jimmy: 7.3 cm/sec Med Peak E' Jimmy: 6.7 cm/sec MV A max jimmy: 146.9 cm/sec E/E' lat: 16.5 E/E' med: 18.0 MV E/A: 0.82 Ao V2 max: 300.6 cm/sec LV V1 max: 127.5 cm/sec PA V2 max: 79.7 cm/sec Ao max P.2 mmHg LV V1 max P.5 mmHg Ao V2 mean: 212.6 cm/sec LV V1 mean P.6 mmHg Ao mean P.4 mmHg LV V1 mean: 91.1 cm/sec Ao V2 VTI: 62.9 cm LV V1 VTI: 28.0 cm ECHO/Echo Complete W/ Contrast Interpretation Summary Normal LV size. Left ventricular systolic function is normal. The estimated ejection fraction is 65 %. Stage 1 diastolic dysfunction. Bioprosthetic aortic valve. Mean aortic valve gradient 20 mmHg. Compared to the previous the mean gradient across the aortic valve has improved significantly suggesting aortic valve replacement. Contrast injection was performed. Ordering Physician: Fred Bond Referring Physician: Chun Schneider Performed By: Parvin Asher, MARIBELL, RVT
== END ==
PROVIDERS: PCP Family Medicine; Referring Provider Internal Medicine Cardiovascular Disease; Visit Provider Internal Medicine Cardiovascular Disease
DX: Z95.2 Presence of prosthetic heart valve (principal)
CPT/HCPCS: 93306; Q9957; A4216; C8929; J3490

== ENCOUNTER → 2021-05-06 07:50 | Outpatient (CLI) | payer BC, SELFPAY ==
--- NOTE | 2021-05-06 07:53 | CT_ITS ---
STUDY: CT ABDOMEN AND PELVIS WITH CONTRAST REASON FOR EXAM: Male, 65 years old. ABD PAIN. Umbilical hernia. RADIATION DOSAGE (If Supplied By Facility): CTDIvol = ( 17.08 ) mGy, DLP = ( 1343.08 ) mGycm TECHNIQUE: Transaxial images were obtained from the dome of the diaphragm to the symphysis pubis with oral contrast. Oral and amp; IV Readi-CAT and amp; 100mL Isovue-300 was administered. Sagittal and coronal images were reconstructed. Individualized dose optimization techniques were used for this CT. COMPARISON: None. FINDINGS: Focal linear atelectasis and/or scarring in the posterior medial segment of the right lower lobe. Aortic valve replacement. Calcification of the mitral valve annulus. There is decreased attenuation of the liver consistent with steatosis. Stable 3 cm x 3.8 cm cyst in the mid medial portion of the right lobe of the liver. Small gallstones are seen in the gallbladder lumen. Normal spleen. Normal pancreas. Normal bilateral adrenal glands. Normal right kidney. Normal left kidney. There is a small hiatal hernia. Normal small intestine. Normal colon. The appendix is visualized and appears normal. There is diffuse atherosclerotic calcification of the abdominal aorta and its major visceral branches, without a demonstrated aneurysm. Normal inferior vena cava. Normal retroperitoneum. Mild degree of diffuse bladder wall thickening although the bladder is not completely distended. There is a small umbilical hernia containing fat. There are diffuse degenerative changes of the visualized lumbar spine. There is straightening of the normal lumbar lordosis. CT/Abdomen/Pelvis WITH Contrast IMPRESSION: Stable umbilical hernia containing fat. Small gallstones. Stable 3 cm x 3.8 cm cyst in the mid medial aspect of the right lobe of the liver. Electronically Signed: Agustín Escudero MD at 15:14 EDT , Service support ,
[2021-05-06 08:26] LABS: CREATININE FINGERSTICK 0.8 mg/dL (0.70-1.30); EGFR FINGERSTICK > 60.0000 mL/min (>60)
== END ==
PROVIDERS: PCP Family Medicine; Referring Provider Family Medicine; Visit Provider Family Medicine
DX: K42.9 Umbilical hernia without obstruction or gangrene (principal); K80.20 Calculus of gallbladder without cholecystitis without obstruction; K76.89 Other specified diseases of liver
CPT/HCPCS: 74177; Q9967

== ENCOUNTER 2021-10-06 13:35 | Emergency (ER) | payer BC, SELFPAY ==
[2021-10-06 13:35] VITALS: BP 167/92; PULSE 76; RESP 18; TEMP 36.3; O2SAT 98; BMI 42.7
--- NOTE | 2021-10-06 15:06 | CT_ITS ---
EXAM: CT ABDOMEN AND PELVIS WITHOUT INTRAVENOUS CONTRAST CLINICAL INDICATION: left abdominal pain TECHNIQUE: Helically acquired images were obtained of the abdomen and pelvis without intravenous contrast. This CT exam was performed using one or more of the following dose reduction techniques: automated exposure control, adjustment of the mA and/or kV according to patient size, and/or use of iterative reconstruction technique. This report was created using [employer] report generation technology. COMPARISON: 05/06/2021 01/23/2017. FINDINGS: LOWER THORAX: Unremarkable. Lung bases are clear. No cardiomegaly. No significant pericardial effusion. ABDOMEN: LIVER: 3.6 cm low-attenuation lesion in the right lobe of the liver, not characterized without contrast. Size is stable compared to prior study studies. The liver is otherwise unremarkable. GALLBLADDER AND BILE DUCTS: Small dependent stones in the gallbladder. No gallbladder distention or wall edema. No intra- or extrahepatic biliary ductal dilation. PANCREAS: Unremarkable. No focal cystic mass. SPLEEN: Unremarkable. Normal size without focal cystic or solid mass. ADRENALS: Unremarkable. No nodules. KIDNEYS AND URETERS: Unremarkable. Normal renal size and position. No hydronephrosis. STOMACH AND BOWEL: Unremarkable. No stomach or bowel distention. No focal inflammatory change. PELVIS: APPENDIX: No evidence of acute appendicitis. BLADDER: Unremarkable. REPRODUCTIVE: Unremarkable as visualized. No mass. ABDOMEN and PELVIS: INTRAPERITONEAL SPACE: Unremarkable. No ascites or other fluid collection. No free air. BONES/JOINTS: Multilevel lumbar stenosis. No suspicious lytic or blastic abnormality. SOFT TISSUES: Small fat-containing umbilical hernia. VASCULATURE: Unremarkable. Abdominal aorta is normal in caliber. LYMPH NODES: Unremarkable. No enlarged lymph nodes. CT/Abdomen/Pelvis without Cont IMPRESSION: 1. No acute findings. 2. Cholelithiasis. 3. Lumbar canal stenosis. 4. Fat-containing umbilical hernia. 5. Stable hepatic hypodensity, consistent with benign lesion. Electronically Signed: Sherice Hankins MD at 16:10 EDT Reading Location ID and State: [id number] / Tel , Service support ,
--- NOTE | 2021-10-06 15:07 | EDS_ITS ---
HPI History of Present Illness Chief Complaint: Other, Pain/Inj Detail of Chief Complaint: Left anterior hip pain that started about 5 days ago Informant: patient Narrative Narrative: Patient presents with pain in his left anterior hip and groin area that started 5 days ago. Patient denies any injury. He describes pain worse with movement but kept him up over the last 2 nights because he is having pain with any kind of movement and at rest often times. Patient denies fever. He denies back pain. Pain really does not seem to radiate down the leg posteriorly but at times down the anterior part of the leg to the knee. Patient denies urinary symptoms. Has not had issues like this before. Prior similar symptoms: No PFSH PFS Medical History (Updated 10/06/21 @ 16:[address] Josi Reyes, ) Arthritis Bradycardia with 41-50 beats per minute Colonic polyp COVID-19 virus detected (08/03/21) Dyslipidemia Elevated troponin Essential (primary) hypertension Fatigue Hay fever Hiatal hernia Hypogonadism in male Hypoxemia Knee pain Lower GI bleed Morbid obesity with BMI of 45.0-49.9, adult Nonobstructive atherosclerosis of coronary artery Nonrheumatic aortic (valve) stenosis Obstructive sleep apnea Prostate cancer Shoulder pain Home Medications furosemide 40 mg PO DAILY 02/14/15 [History Last Taken 08/18/20] niacin 500 mg PO QHS 02/14/15 [History Last Taken 08/18/20] omega-3 acid ethyl esters 2 gm PO DAILY 02/14/15 [History Last Taken 08/18/20] potassium chloride 20 meq PO DAILY 02/14/15 [History Last Taken 08/18/20] testosterone cypionate 1 ml IM Q14D 02/14/15 [History Last Taken 07/11/19] vitamin B complex 1 ea SL BID 02/14/15 [History Last Taken 08/18/20] 5-hydroxytryptophan (5-HTP) 100 mg PO BID 03/09/17 [History Last Taken 08/18/20] folic acid 0.8 mg PO DAILY 03/09/17 [History Last Taken 08/18/20] lisdexamfetamine 60 mg PO DAILY 03/09/17 [History Last Taken 08/18/20] benazepril 40 mg PO DAILY 07/12/19 [History Last Taken 08/18/20] ergocalciferol (vitamin D2) 50,000 unit PO Q7D 08/19/20 [History Last Taken 08/12/20] pregabalin 100 mg capsule 100 mg PO TID cap 01/25/21 [History Last Taken Unknown] acetaminophen 500 mg tablet 500 mg PO BID tab 05/16/21 [History Last Taken Unknown] aspirin 325 mg tablet,delayed release 325 mg PO BID 05/16/21 [History Last Taken Unknown] dexamethasone 6 mg tablet 6 mg PO DAILY #5 tab 08/03/21 [Rx Last Taken Unknown] hydrocodone-acetaminophen 1 tab PO Q4H PRN PRN 2 Days #14 tablet 10/06/21 [Rx Last Taken Unknown] Allergy/AdvReac Type Severity Reaction Status Date / Time hydromorphone HCl Allergy Other Verified 10/06/21 13:38 [From Dilaudid] Surgical History H/O laminectomy H/O total knee replacement History of appendectomy History of back surgery History of carpal tunnel release History of cataract surgery History of elbow surgery History of knee surgery History of left heart catheterization (08/20/20) History of lumbar surgery History of transcatheter aortic valve replacement (TAVR) (11/26/20) Social History Smoking Status: Former smoker alcohol intake: never ROS ROS ED Constitutional Constitutional ED: Reports systems reviewed and no addt'l complaints, except as documented; Denies body ache(s), change in weight or chills Eyes Eyes: Denies acute decrease in peripheral vision, change in vision, double vision or loss of vision ENT ENT ED: Reports none; Denies ear pain, lip swelling, loss taste/smell, neck pain, otalgia or sore throat Cardiovascular Cardiovascular: Reports none; Denies abdominal pain, chest pain with activity, leg edema, lightheadedness, palpitations, rapid heart rate or syncope Respiratory/Chest Respiratory/Chest: Reports none; Denies change in mental status, dry cough, dyspnea, hemoptysis, shortness of breath at rest or shortness of breath with exertion Gastrointestinal Gastrointestinal: Reports none; Denies abdominal pain, change in stool character, diarrhea, hematemesis, hematochezia, melena, rectal bleeding or vomiting Genitourinary Genitourinary ED: Reports none; Denies abdominal discomfort, anuria, dysuria, genital pain or polyuria Musculoskeletal Musculoskeletal: Reports none and other Details: Left hip pain ; Denies arthralgias, back pain, difficulty walking, extremity pain, muscle weakness or myalgias Integumentary Reports none; Denies abscess or rash Neurologic Neurologic: Reports none; Denies abnormal gait, confusion, focal weakness, frequent falls, headache(s), loss of vision, numbness, paresthesias, radicular pain, vertigo or weakness Psychiatric Psychiatric: Reports systems reviewed and no addt'l complaints, except as documented and none; Denies behavioral changes, confusion, difficulty concentrating, hallucinations, suicidal ideation, tactile hallucinations or visual hallucinations Endocrine Endocrinology: Denies none, cold intolerance, excessive sweating, fatigue or heat intolerance Hematologic/Lymphatic Hematologic/Lymphatic: Reports none; Denies anemia, easy bleeding or easy bruising Allergic/Immunologic Allergic/Immunologic ED: Denies as per HPI, none, lip swelling, mouth swelling, throat swelling, tongue swelling or hives EXAM Physical Exam Const Vital Signs: 10/06/21 13:35 Temperature 97.4 F L Temperature Source Temporal Pulse Rate 76 Respiratory Rate 18 Blood Pressure 167/92 H Blood Pressure Mean 117 Pulse Ox 98 Oxygen Delivery Method Room Air Positive well nourished and well developed General Appearance ED: well developed and NAD HEENT Reports TM's clear and moist mucous membranes normocephalic and atraumatic; Negative for trauma or tenderness Tympanic Membrane ED: Yes TM's clear Eyes PERRL and EOMs intact bilaterally General Eye ED: Negative for pale conjunctiva or scleral icterus Neck no lymphadenopathy, supple and no JVD General: Negative for tenderness Chest Wall inspection of chest normal and palpation of chest normal Chest: Negative for tenderness Resp normal respiratory effort and clear to auscultation bilaterally Effort and Inspection: Negative for respiratory distress or pain with movement Auscultation: Negative for rhonchi, wheezes or diminished lung sounds Cardio regular rate, regular rhythm, S1 normal heart sound, S2 normal heart sound and no murmurs Peripheral Pulses: pulses 2+ throughout GI normal to inspection, nondistended, normoactive bowel sounds, soft to palpation, non-tender, non-distended and no masses GI Narrative: Patient has some mild tenderness over left lower abdomen with some mild guarding. There is no rebound, rigidity, or peritoneal signs. No masses palpated. Patient also with tenderness in the left inguinal region. Back/Spine no CVA tenderness and no thoracic nor lumbar tenderness Extremity Extremity Narrative: Evaluation of the right hip reveals pain with range of motion anteriorly. There is no shortening or external rotation. No erythema or warmth noted. Neurovascular intact distally. General Extremety ED: Negative for edema General Extremity: Negative for edema Neuro oriented x3, CN's II-XII intact bilaterally, no sensory deficits noted and gait normal Sensorium / Orientation: awake, alert, oriented to person, oriented to place and oriented to time Motor Exam: strength 5/5 throughout and strength abnormal Psych mental status grossly normal Skin no rashes or lesions noted and no wounds MDM MDM MDM Narrative Medical decision making narrative: IV line established on arrival. Lab work-up unremarkable. CT scan of the abdomen pelvis was unremarkable. At this point I suspect likely a groin strain. Patient will be given a prescription for few [place] for pain. Patient does not want me to given work restrictions or time off work. Patient will follow up with his primary care physician for follow-up. Lab Data Attestation: I reviewed the patient's lab results. Labs: Laboratory Results - last 24 hr 10/06/21 10/06/21 10/06/21 15:21 15:21 15:40 WBC 7.3 RBC 4.89 Hgb 14.5 Hct 45.0 MCV 92.0 MCH 29.7 MCHC 32.2 RDW Std Deviation 45.8 H RDW Coeff of Shahzad 13.5 Plt Count 280 MPV 9.7 Immature Gran % (Auto) 0.300 Neut % (Auto) 70.4 H Lymph % (Auto) 18.6 L [place] % (Auto) 6.5 Eos % (Auto) 3.1 Baso % (Auto) 1.1 H Absolute Neuts (auto) 5.2 Absolute Lymphs (auto) 1.36 Nucleated RBC % 0 Sodium 140 Potassium 4.3 Chloride 108 H Carbon Dioxide 28.0 Anion Gap 4 L BUN 16 Creatinine 0.76 Estim Creat Clear Calc 75.30 Est GFR (MDRD) Af Amer 131 Est GFR (MDRD) Non-Af 108 BUN/Creatinine Ratio 21.0 H Glucose 100 Calcium 8.3 L Urine Color Yellow Urine Clarity Clear Urine pH 6.0 Ur Specific [place] 1.015 Urine Protein Negative Urine Glucose (UA) Normal Urine Ketones Negative Urine Occult Blood Negative Urine Nitrite Negative Urine Bilirubin Negative Urine Urobilinogen Normal Ur Leukocyte Esterase Negative Urine RBC 0 SEEN Urine WBC 0 SEEN Ur Squamous Epith Cells 0 SEEN Urine Bacteria 0 SEEN Urine Mucus 0 SEEN Radiography Diagnostic Testing: Clinical Impression(s) from Imaging Studies Abdomen/Pelvis CT 10/06/21 15:06 IMPRESSION: 1. No acute findings. 2. Cholelithiasis. 3. Lumbar canal stenosis. 4. Fat-containing umbilical hernia. 5. Stable hepatic hypodensity, consistent with benign lesion. Electronically Signed: Sherice Hankins MD at 16:10 EDT Reading Location ID and State: [id number] / Tel , Service support , Discharge Plan Triage Chief Complaint: Other, Pain/Inj ED Provider: Josi Reyes Dx/Rx/DC Orders Clinical Impression: Strain of left groin Instructions: ED Groin Strain Prescriptions: New hydrocodone-acetaminophen [hydrocodone-acetaminophen] 1 TABLET tablet 1 tab PO Q4H PRN PRN (Reason: Pain) 2 Days Qty: 14 RF: 0 No Action pregabalin 100 mg capsule 100 mg PO TID RF: 0 dexamethasone [Decadron] 6 mg tablet 6 mg PO DAILY Qty: 5 RF: 0 furosemide 40 MG tablet 40 mg PO DAILY RF: 0 testosterone cypionate 100 MG/ML oil 1 ml IM Q14D RF: 0 potassium chloride 20 MEQ tablet 20 meq PO DAILY RF: 0 omega-3 acid ethyl esters 1 GM capsule 2 gm PO DAILY RF: 0 niacin 500 MG tablet 500 mg PO QHS RF: 0 vitamin B complex 1 EACH capsule 1 ea SL BID RF: 0 folic acid 0.8 MG tablet 0.8 mg PO DAILY RF: 0 5-hydroxytryptophan (5-HTP) 100 MG capsule 100 mg PO BID RF: 0 lisdexamfetamine 50 MG capsule 60 mg PO DAILY RF: 0 benazepril 40 MG tablet 40 mg PO DAILY RF: 0 ergocalciferol (vitamin D2) 50,000 UNIT capsule 50,000 unit PO Q7D RF: 0 aspirin 325 mg tablet,delayed release (DR/EC) 325 mg PO BID RF: 0 acetaminophen 500 mg tablet 500 mg PO BID RF: 0 Primary Care Provider: Chun Schneider Referrals: Chun Schneider DO [Primary Care Provider] - 3-5 Days Disposition Disposition: Home, Self Care
[2021-10-06 15:45] LABS: Absolute Lymphocyte Count 1.36 X10^3/uL (0.83-4.51); Absolute Neutrophil Count 5.2 X10^3/uL (2.0-7.7); Basophil# 0.08 X10^3/uL; Basophil% 1.1 % (0-1); Eosinophil# 0.23 X10^3/uL; Eosinophils% 3.1 % (0-5); Hemoglobin 14.5 g/dL (13.0-16.5); Lymphocyte # 1.36 X10^3/ul (0.83-4.51); Lymphocyte % 18.6 % (19-41); Mean Corp Hgb Conc 32.2 g/dL (32-36); Mean Corpuscular Hgb 29.7 pg (27.0-32.0); Mean Platelet Vol. 9.7 fl (6.2-12.0); Monocyte# 0.48 X10^3/uL; Monocyte% 6.5 % (0-10); NRBC Flagged by Analyzer 0 % (0-5); Neutrophil # 5.16 X10^3/uL (2.7-7.7); Neutrophil % 70.4 % (47-70); Platelet Count 280 K/mm3 (150-450); RBC Distribution Width CV 13.5 % (11.6-14.6); RBC Distribution Width SD 45.8 fl (35.1-43.9); Red Blood Count 4.89 M/mm3 (4.6-6.2); White Blood Count 7.3 K/mm3 (4.4-11.0)
[2021-10-06 15:48] LABS: Bacteria 0 SEEN /hpf (None Seen); Mucous, Urine 0 SEEN /hpf (<or=2+); Red Blood Cells-Urine 0 SEEN /hpf (0-5); Squamous Epithelial Cells - UA 0 SEEN /hpf (0-5); White Blood Cells 0 SEEN /hpf (0-5)
[2021-10-06 15:49] LABS: Color, Urine Yellow (Yellow); Glucose, Dipstick Normal (Normal); Ketone-Dipstick Negative (Negative); Leukocyte Esterase-Dipstick Negative /ul (Negative); Nitrite-Dipstick Negative (Negative); Occult Blood-Urine Negative /ul (Negative); Protein-Dipstick Negative (Negative); Specific Gravity, Urine 1.015 (1.002-1.030); Urine Bilirubin Dipstick Negative (Negative); Urine Clarity Clear (Clear); Urine Urobilinogen Normal (Normal)
[2021-10-06 15:59] LABS: Anion Gap 4 (5-15); BUN 16 mg/dL (7-18); Calcium,Total 8.3 mg/dL (8.5-10.1); Chloride 108 mmol/L (98-107); Creatinine, Serum 0.76 mg/dL (0.70-1.30); EST Glomerular Filtration Rate 108 mL/min (>60); Est Glom Filt Rate - Afr Amer 131 mL/min (>60); Glucose 100 mg/dL (74-106); Potassium 4.3 mmol/L (3.5-5.1); Sodium Level 140 mmol/L (136-145)
[2021-10-06 16:40] VITALS: BP 124/78; PULSE 66; RESP 16; TEMP 36.9; O2SAT 98
== END 2021-10-06 16:42 | disposition home or self-care (01) ==
PROVIDERS: Emergency Provider Emergency Medicine; PCP Family Medicine; Visit Provider Emergency Medicine
DX: S76.212A Strain of adductor muscle, fascia and tendon of left thigh, initial encounter (principal); E66.01 Morbid (severe) obesity due to excess calories; Z68.42 Body mass index [BMI] 45.0-49.9, adult; X58.XXXA Exposure to other specified factors, initial encounter; I25.10 Atherosclerotic heart disease of native coronary artery without angina pectoris; I10 Essential (primary) hypertension; Z79.82 Long term (current) use of aspirin; Z79.899 Other long term (current) drug therapy; Z86.16 Personal history of COVID-19; Z87.891 Personal history of nicotine dependence
CPT/HCPCS: 74176; 80048; 81001; 85025; 99283

== ENCOUNTER 2022-03-01 15:09 | Emergency (ER) | payer BC, SELFPAY ==
[2022-03-01 15:11] VITALS: BP 148/91; PULSE 85; RESP 14; TEMP 37.1; O2SAT 97; BMI 43.3
[2022-03-01 15:13] VITALS: BP 148/91; PULSE 85; RESP 14; TEMP 37.1; O2SAT 97
--- NOTE | 2022-03-01 15:25 | EDS_ITS ---
HPI History of Present Illness Chief Complaint: Lower Extremity Injury Detail of Chief Complaint: Concern for postop infection Informant: patient Narrative Narrative: Patient presents to the emergency department with concern of postop infection to his left hip. Patient states that he had surgery on February [address] Pacheco of the [facility]. Patient had a left total hip replacement. Patient states that he was admitted overnight and then discharged home. On the patient started having chills and a low-grade fever initially 99 and then went up to 100.1. Patient called the [facility] today and they were instructed to go to an urgent care. Patient went to urgent care and then they were referred to the emergency department. Patient has history of hypertension. He is not diabetic. Prior similar symptoms: No PFSH [facility] Medical History (Updated 03/01/22 @ 17:[address] Josi Reyes, ) Arthritis Bradycardia with 41-50 beats per minute Colonic polyp COVID-19 virus detected (08/03/21) Disc degeneration, lumbar Dyslipidemia Elevated troponin Essential (primary) hypertension Fatigue Hay fever Hiatal hernia Hypogonadism in male Hypoxemia Knee pain Lower GI bleed Morbid obesity with BMI of 45.0-49.9, adult Nonobstructive atherosclerosis of coronary artery Nonrheumatic aortic (valve) stenosis Obstructive sleep apnea Osteoarthritis of left hip Prostate cancer Shoulder pain Home Medications furosemide 40 mg tablet 40 mg PO DAILY diuretic/water pill 02/14/15 [History Last Taken 08/18/20] niacin 500 mg tablet 500 mg PO QHS supplement 02/14/15 [History Last Taken 08/18/20] omega-3 acid ethyl esters 1 gram capsule 2 gm PO DAILY supplement 02/14/15 [History Last Taken 08/18/20] potassium chloride 20 mEq tablet,extended release(part/cryst) 20 meq PO DAILY supplement 02/14/15 [History Last Taken 08/18/20] testosterone cypionate 100 mg/mL intramuscular oil 1 ml IM Q14D hormone 02/14/15 [History Last Taken 07/11/19] vitamin B complex 1 ea sublingual BID supplement 02/14/15 [History Last Taken 08/18/20] 5-hydroxytryptophan (5-HTP) 100 mg capsule 100 mg PO BID SUPPLEMENT 03/09/17 [History Last Taken 08/18/20] folic acid 800 mcg tablet 0.8 mg PO DAILY supplement 03/09/17 [History Last Taken 08/18/20] lisdexamfetamine 50 mg capsule 60 mg PO DAILY ADHD 03/09/17 [History Last Taken 08/18/20] benazepril 40 mg tablet 40 mg PO DAILY blood pressure 07/12/19 [History Last Taken 08/18/20] ergocalciferol (vitamin D2) 1,250 mcg (50,000 unit) capsule 50,000 unit PO Q7D supplement 08/19/20 [History Last Taken 08/12/20] pregabalin 100 mg capsule 100 mg PO TID 01/25/21 [History Last Taken Unknown] acetaminophen 500 mg tablet 500 mg PO BID for arthritis pain 05/16/21 [History Last Taken Unknown] aspirin 325 mg tablet,delayed release 325 mg PO BID for arthritis pain (plus cardiac hx) 05/16/21 [History Last Taken Unknown] hydrocodone-acetaminophen 5-325mg 5mg-325mg 1 tab PO Q4H PRN PRN Pain 2 days #14 TABLETS 10/06/21 [Rx Last Taken Unknown] sildenafil 100 mg tablet 100 mg PO 11/04/21 [History Last Taken Unknown] clotrimazole-betamethasone 1 %-0.05 % topical cream 1 applic topical BID 2 weeks #45 grams 12/26/21 [Rx Last Taken Unknown] fluconazole 150 mg tablet (Diflucan) 150 mg PO Q3D 2 doses #2 tabs 12/26/21 [Rx Last Taken Unknown] dexamethasone 6 mg tablet (Decadron) 6 mg PO DAILY #5 tabs 01/11/22 [Rx Last Taken Unknown] cephalexin 500 mg capsule 500 mg PO Q6 #40 CAPSULES 03/01/22 [Rx Last Taken Unknown] Allergy/AdvReac Type Severity Reaction Status Date / Time hydromorphone HCl Allergy Other Verified 03/01/22 15:10 [From Dilaudid] Surgical History H/O laminectomy H/O total knee replacement History of appendectomy History of back surgery History of carpal tunnel release History of cataract surgery History of elbow surgery History of knee surgery History of left heart catheterization (08/20/20) History of lumbar surgery History of transcatheter aortic valve replacement (TAVR) (11/26/20) Social History Smoking Status: Former smoker alcohol intake: never ROS ROS ED Review of Systems ROS Unobtainable: other Constitutional Constitutional ED: Reports chills, fever(s) and lethargy; Denies sweats or weight loss Eyes Eyes: Denies blurry vision, change in vision or diplopia ENT ENT ED: Denies rhinorrhea or sore throat Cardiovascular Cardiovascular: Reports chest pain and racing heartbeat; Denies orthopnea Respiratory/Chest Respiratory/Chest: Reports dyspnea and dyspnea on exertion; Denies cough, orthopnea or sputum Gastrointestinal Gastrointestinal: Denies abdominal pain, diarrhea, nausea or vomiting Genitourinary Genitourinary ED: Denies dysuria, hematuria or urinary frequency Musculoskeletal Musculoskeletal: Denies arthralgias, back pain, myalgias or neck pain Integumentary Reports other Details: Redness to skin of left hip ; Denies abscess, Abrasions or rash Neurologic Neurologic: Denies headache(s) or weakness Psychiatric Psychiatric: Denies anxiety, depression or suicidal thoughts Endocrine Endocrinology: Denies polydipsia, polyphagia or polyuria Hematologic/Lymphatic Hematologic/Lymphatic: Denies easy bleeding, easy bruising or lymphadenopathy Allergic/Immunologic Allergic/Immunologic ED: Denies mouth swelling, tongue swelling or urticaria EXAM Physical Exam Const Vital Signs: 03/01/22 15:11 03/01/22 15:13 Temperature 98.7 F 98.7 F Temperature Source Temporal Temporal Pulse Rate 85 85 Respiratory Rate 14 14 Blood Pressure 148/91 H 148/91 H Blood Pressure Mean 110 110 Pulse Ox 97 97 Oxygen Delivery Method Room Air Room Air Positive well nourished and well developed General Appearance ED: well developed and NAD HEENT Reports TM's clear and moist mucous membranes normocephalic and atraumatic; Negative for trauma or tenderness Tympanic Membrane ED: Yes TM's clear Eyes PERRL and EOMs intact bilaterally General Eye ED: Negative for pale conjunctiva or scleral icterus Neck no lymphadenopathy, supple and no JVD General: Negative for tenderness Chest Wall inspection of chest normal and palpation of chest normal Chest: Negative for tenderness Resp normal respiratory effort and clear to auscultation bilaterally Effort and Inspection: Negative for respiratory distress or pain with movement Auscultation: Negative for rhonchi, wheezes or diminished lung sounds Cardio regular rate, regular rhythm, S1 normal heart sound, S2 normal heart sound and no murmurs Peripheral Pulses: pulses 2+ throughout GI normal to inspection, nondistended, normoactive bowel sounds, soft to palpation, non-tender, non-distended and no masses Back/Spine no CVA tenderness and no thoracic nor lumbar tenderness Extremity normal to inspection Extremity Narrative: Left hip-patient had a dressing over the incision which was removed. Steri- Strips were in place. There was some faint erythema along the area of incision and surrounding the incision with some faint erythema streaking to the medial thigh. Area slightly tender to palpation. There is ecchymosis and bruising from surgery. I am unable to express any purulent drainage from the wound with compression of the area. Neurovascular intact distally. General Extremety ED: Negative for edema General Extremity: Negative for edema Neuro oriented x3, CN's II-XII intact bilaterally, no sensory deficits noted and gait normal Sensorium / Orientation: awake, alert, oriented to person, oriented to place and oriented to time Motor Exam: strength 5/5 throughout and strength abnormal Psych mental status grossly normal Skin no rashes or lesions noted and no wounds MDM MDM MDM Narrative Medical decision making narrative: Established on arrival. Lab work-up obtained showed a normal white count of 9.4 however his sed rate is 25 and his CRP is 133. Case was discussed with orthopedic surgeon on-call Dr. Enriquez who was covering for Dr. Pacheco. Given the low-grade temps at home in the cellulitic changes to the skin it was felt we should start patient on antibiotics and will started on Keflex. Patient to follow-up in the office with his surgeon within the next 2 to 3 days. Patient advised to return if increased redness, swelling, high fevers, or condition should worsen anyway. Lab Data Attestation: I reviewed the patient's lab results. Labs: Laboratory Results - last 24 hr 03/01/22 03/01/22 03/01/22 15:35 15:35 15:35 WBC 9.4 RBC 4.69 Hgb 14.5 Hct 43.2 MCV 92.1 MCH 30.9 MCHC 33.6 RDW Std Deviation 45.0 H RDW Coeff of Shahzad 13.4 Plt Count 299 MPV 9.7 Immature Gran % (Auto) 0.600 Neut % (Auto) 73.3 H Lymph % (Auto) 15.5 L [place] % (Auto) 8.2 Eos % (Auto) 1.7 Baso % (Auto) 0.7 Absolute Neuts (auto) 6.9 Absolute Lymphs (auto) 1.45 Nucleated RBC % 0 ESR 25 H Sodium 139 Potassium 4.2 Chloride 102 Carbon Dioxide 32.0 Anion Gap 5 BUN 16 Creatinine 0.84 Estim Creat Clear Calc 86.90 Est GFR (MDRD) Af Amer 117 Est GFR (MDRD) Non-Af 97 BUN/Creatinine Ratio 19.1 Glucose 103 Lactic Acid 1.2 Calcium 8.9 C-React Prot Ext Range 133.00 H Discharge Plan Triage Chief Complaint: Lower Extremity Injury ED Provider: Josi Reyes Dx/Rx/DC Orders Clinical Impression: Left hip postoperative wound infection Instructions: ED Wound Infection after surgery Prescriptions: New cephalexin [cephalexin] 500 mg capsule 500 mg PO Q6 Qty: 40 0RF No Action pregabalin 100 mg capsule 100 mg PO TID Label Comments: TAKE 1 CAPSULE BY MOUTH 3 TIMES A DAY sildenafil 100 mg tablet 100 mg PO fluconazole [Diflucan] 150 mg tablet 150 mg PO Q3D Qty: 2 0RF Rx Instructions: may repeat second dose 72 hrs after first dose if symptoms persist clotrimazole-betamethasone 1-0.05 % cream 1 applic topical BID 14 Days Qty: 45 1RF dexamethasone [Decadron] 6 mg tablet 6 mg PO DAILY Qty: 5 0RF furosemide 40 MG tablet 40 mg PO DAILY testosterone cypionate 100 MG/ML oil 1 ml IM Q14D potassium chloride 20 MEQ tablet 20 meq PO DAILY omega-3 acid ethyl esters 1 GM capsule 2 gm PO DAILY niacin 500 MG tablet 500 mg PO QHS vitamin B complex 1 EACH capsule 1 ea SL BID folic acid 0.8 MG tablet 0.8 mg PO DAILY 5-hydroxytryptophan (5-HTP) 100 MG capsule 100 mg PO BID lisdexamfetamine 50 MG capsule 60 mg PO DAILY Label Comments: TAKE ONE CAPSULE BY MOUTH EVERY DAY benazepril 40 MG tablet 40 mg PO DAILY ergocalciferol (vitamin D2) 50,000 UNIT capsule 50,000 unit PO Q7D Rx Instructions: on sundays hydrocodone-acetaminophen [hydrocodone-acetaminophen] 1 TABLET tablet 1 tab PO Q4H PRN PRN (Reason: Pain) 2 Days Qty: 14 0RF aspirin 325 mg tablet,delayed release (DR/EC) 325 mg PO BID acetaminophen 500 mg tablet 500 mg PO BID Primary Care Provider: Chun Schneider Referrals: Chun Schneider DO [Primary Care Provider] - Activity Restrictions/Additional Instructions: See your surgeon within next 2 to 3 days. Disposition Disposition: Home, Self Care
[2022-03-01 15:50] LABS: Absolute Lymphocyte Count 1.45 X10^3/uL (0.83-4.51); Absolute Neutrophil Count 6.9 X10^3/uL (2.0-7.7); Basophil# 0.07 X10^3/uL; Basophil% 0.7 % (0-1); Eosinophil# 0.16 X10^3/uL; Eosinophils% 1.7 % (0-5); Hematocrit 43.2 % (40-54); Hemoglobin 14.5 g/dL (13.0-16.5); Lymphocyte # 1.45 X10^3/ul (0.83-4.51); Lymphocyte % 15.5 % (19-41); Mean Corp Hgb Conc 33.6 g/dL (32-36); Mean Corpuscular Hgb 30.9 pg (27.0-32.0); Mean Corpuscular Volume 92.1 fL (80-94); Mean Platelet Vol. 9.7 fl (6.2-12.0); Monocyte# 0.77 X10^3/uL; Monocyte% 8.2 % (0-10); NRBC Flagged by Analyzer 0 % (0-5); Neutrophil # 6.85 X10^3/uL (2.7-7.7); Neutrophil % 73.3 % (47-70); Platelet Count 299 K/mm3 (150-450); RBC Distribution Width CV 13.4 % (11.6-14.6); Red Blood Count 4.69 M/mm3 (4.6-6.2); White Blood Count 9.4 K/mm3 (4.4-11.0)
[2022-03-01 15:57] LABS: Erythrocyte Sedimentation Rate 25 mm/hr (0-20)
[2022-03-01 16:09] LABS: Anion Gap 5 (5-15); BUN 16 mg/dL (7-18); BUN/Creat Ratio 19.1 RATIO (10-20); Calcium,Total 8.9 mg/dL (8.5-10.1); Chloride 102 mmol/L (98-107); Creatinine, Serum 0.84 mg/dL (0.70-1.30); EST Glomerular Filtration Rate 97 mL/min (>60); Est Glom Filt Rate - Afr Amer 117 mL/min (>60); Glucose 103 mg/dL (74-106); Potassium 4.2 mmol/L (3.5-5.1); Sodium Level 139 mmol/L (136-145)
[2022-03-01 16:12] LABS: Lactic Acid 1.2 mmol/L (0.4-1.9)
--- NOTE | 2022-03-01 16:54 | NURSING ---
PAGED DR [address]OUGH [address] [employer] [facility] [phone] [employer] [facility] [phone]
--- NOTE | 2022-03-01 17:06 | NURSING ---
PAGED THROUGH [facility]
--- NOTE | 2022-03-01 17:23 | NURSING ---
DR ABA SEARS
[2022-03-01] MEDS: Cephalexin 250 MG Capsule 500 MG PO (17:39)
[2022-03-01 17:48] VITALS: PULSE 72; RESP 16; TEMP 37.1; O2SAT 99
== END 2022-03-01 17:48 | disposition home or self-care (01) ==
PROVIDERS: Emergency Provider Emergency Medicine; PCP Family Medicine; Visit Provider Emergency Medicine
DX: T81.41XA Infection following a procedure, superficial incisional surgical site, initial encounter (principal); E66.01 Morbid (severe) obesity due to excess calories; Z68.42 Body mass index [BMI] 45.0-49.9, adult; X58.XXXA Exposure to other specified factors, initial encounter; I10 Essential (primary) hypertension; E78.5 Hyperlipidemia, unspecified; Z96.642 Presence of left artificial hip joint; Z79.82 Long term (current) use of aspirin; Z79.899 Other long term (current) drug therapy; Z86.16 Personal history of COVID-19; Z87.891 Personal history of nicotine dependence
CPT/HCPCS: 80048; 83605; 85025; 85652; 86140; 87040; 99284

== ENCOUNTER 2022-04-09 22:27 | Emergency (ER) | payer BC, SELFPAY ==
[2022-04-09 22:28] VITALS: BP 168/78; PULSE 75; RESP 18; TEMP 36.6; O2SAT 97; BMI 42.9
--- NOTE | 2022-04-09 22:49 | EX.ED.UPPERE ---
HPI History of Present Illness Chief Complaint: Upper Extremity Injury Informant: patient Occured/Mechanism Mechanism/Context: Yes fall Onset/Context/Timing Onset: Today (JPTA) Context: Sudden Onset Timing: Continuous Quality of Pain: Aching Location: Left shoulder radiating down to left elbow and into clavicle Current Severity: Moderate Maximum Severity: Severe Worsened by: Any movement of shoulder especially tried to go up overhead Relieved by: Remaining still Associated Symptoms Associated Symptoms: Positive for Parasthesia (Possibly mild dorsum of left hand over rays 4 and 5) and Loss of Funtion (Left shoulder see above); Negative for Weakness Narrative Narrative: Patient was in his bedroom he is redoing the floor and the subfloor is exposed, he misstepped near his bed, falling to the floor against his abducted left shoulder. [id number]. Injury to the left shoulder, had pre-existing chronic issues/pain with abduction and raising above his head prior to this injury. [facility] Medical History Arthritis Bradycardia with 41-50 beats per minute Colonic polyp COVID-19 virus detected (08/03/21) Disc degeneration, lumbar Dyslipidemia Elevated troponin Essential (primary) hypertension Fatigue Hay fever Hiatal hernia Hypogonadism in male Hypoxemia Knee pain Lower GI bleed Morbid obesity with BMI of 45.0-49.9, adult Nonobstructive atherosclerosis of coronary artery Nonrheumatic aortic (valve) stenosis Obstructive sleep apnea Osteoarthritis of left hip Prostate cancer Shoulder pain Home Medications furosemide 40 mg tablet 40 mg PO DAILY diuretic/water pill 02/14/15 [History Last Taken 08/18/20] niacin 500 mg tablet 500 mg PO QHS supplement 02/14/15 [History Last Taken 08/18/20] omega-3 acid ethyl esters 1 gram capsule 2 gm PO DAILY supplement 02/14/15 [History Last Taken 08/18/20] potassium chloride 20 mEq tablet,extended release(part/cryst) 20 meq PO DAILY supplement 02/14/15 [History Last Taken 08/18/20] testosterone cypionate 100 mg/mL intramuscular oil 1 ml IM Q14D hormone 02/14/15 [History Last Taken 07/11/19] vitamin B complex 1 ea sublingual BID supplement 02/14/15 [History Last Taken 08/18/20] 5-hydroxytryptophan (5-HTP) 100 mg capsule 100 mg PO BID SUPPLEMENT 03/09/17 [History Last Taken 08/18/20] folic acid 800 mcg tablet 0.8 mg PO DAILY supplement 03/09/17 [History Last Taken 08/18/20] lisdexamfetamine 50 mg capsule 60 mg PO DAILY ADHD 03/09/17 [History Last Taken 08/18/20] benazepril 40 mg tablet 40 mg PO DAILY blood pressure 07/12/19 [History Last Taken 08/18/20] ergocalciferol (vitamin D2) 1,250 mcg (50,000 unit) capsule 50,000 unit PO Q7D supplement 08/19/20 [History Last Taken 08/12/20] pregabalin 100 mg capsule 100 mg PO TID 01/25/21 [History Last Taken Unknown] acetaminophen 500 mg tablet 500 mg PO BID for arthritis pain 05/16/21 [History Last Taken Unknown] aspirin 325 mg tablet,delayed release 325 mg PO BID for arthritis pain (plus cardiac hx) 05/16/21 [History Last Taken Unknown] hydrocodone-acetaminophen 5-325mg 5mg-325mg 1 tab PO Q4H PRN PRN Pain 2 days #14 TABLETS 10/06/21 [Rx Last Taken Unknown] sildenafil 100 mg tablet 100 mg PO 11/04/21 [History Last Taken Unknown] clotrimazole-betamethasone 1 %-0.05 % topical cream 1 applic topical BID 2 weeks #45 grams 12/26/21 [Rx Last Taken Unknown] fluconazole 150 mg tablet (Diflucan) 150 mg PO Q3D 2 doses #2 tabs 12/26/21 [Rx Last Taken Unknown] dexamethasone 6 mg tablet (Decadron) 6 mg PO DAILY #5 tabs 01/11/22 [Rx Last Taken Unknown] cephalexin 500 mg capsule 500 mg PO Q6 #40 CAPSULES 03/01/22 [Rx Last Taken Unknown] Allergy/AdvReac Type Severity Reaction Status Date / Time hydromorphone HCl Allergy Other Verified 04/09/22 22:31 [From Dilaudid] Surgical History H/O laminectomy H/O total knee replacement History of appendectomy History of back surgery History of carpal tunnel release History of cataract surgery History of elbow surgery History of knee surgery History of left heart catheterization (08/20/20) History of lumbar surgery History of transcatheter aortic valve replacement (TAVR) (11/26/20) Social History Smoking Status: Former smoker alcohol intake: never ROS ROS ED Constitutional Constitutional ED: Denies chills or fever(s) Musculoskeletal Musculoskeletal: Reports extremity pain; Denies neck pain Integumentary Denies Abrasions, rash or wounds Neurologic Neurologic: Denies paresthesias or weakness EXAM Physical Exam Const Vital Signs: 04/09/22 22:28 Temperature 97.8 F Temperature Source Temporal Pulse Rate 75 Respiratory Rate 18 Blood Pressure 168/78 H Blood Pressure Mean 108 Pulse Ox 97 Oxygen Delivery Method Room Air Positive well nourished and well developed General Appearance ED: well developed and NAD Neck full ROM and supple Back/Spine normal ROM and normal to inspection Extremity normal to inspection Extremity Narrative: Holding left upper extremity in position of comfort. No deformities. Nontender clavicle and acromioclavicular joint, but the acromion is mildly tender, and he is more tender in the proximal humerus/subacromial area. The rest of the humerus is nontender until I palpate the distal aspect at the lateral epicondyle. Full range of motion of the elbow joint without any other bony tenderness there, painless supination/pronation with no tenderness at the radial head. 2+/4 radial pulse. Very limited range of motion of the shoulder due to pain. Other 3 extremities are atraumatic and nontender. Neuro oriented x3, no focal motor deficits and no sensory deficits noted Sensorium / Orientation: alert Psych mental status grossly normal and thought process normal Skin no wounds Rashes: no rashes MDM MDM MDM Narrative Medical decision making narrative: Three-view x-ray series of the left shoulder on my interpretation shows a nondisplaced surgical neck fracture, it appears to be a 1 part fracture, and I also obtained a 4 view x-ray series of the left humerus to visualize the bone in its entirety, on my interpretation they are negative for any additional fractures distal to the surgical neck. Patient was placed in a sling, offered some analgesics here, he has over 30 Percocet 5 mg pills left from having hip surgery relatively recently so he is fine using those until he follows up for this. Discharge Plan Triage Chief Complaint: Upper Extremity Injury ED Provider: Josue Jamison Dx/Rx/DC Orders Clinical Impression: Closed traumatic nondisplaced fracture of proximal end of left humerus Instructions: Understanding a Humerus Fracture, ED Fracture, Shoulder Prescriptions: No Action pregabalin 100 mg capsule 100 mg PO TID Label Comments: TAKE 1 CAPSULE BY MOUTH 3 TIMES A DAY sildenafil 100 mg tablet 100 mg PO fluconazole [Diflucan] 150 mg tablet 150 mg PO Q3D Qty: 2 0RF Rx Instructions: may repeat second dose 72 hrs after first dose if symptoms persist clotrimazole-betamethasone 1-0.05 % cream 1 applic topical BID 14 Days Qty: 45 1RF dexamethasone [Decadron] 6 mg tablet 6 mg PO DAILY Qty: 5 0RF furosemide 40 MG tablet 40 mg PO DAILY testosterone cypionate 100 MG/ML oil 1 ml IM Q14D potassium chloride 20 MEQ tablet 20 meq PO DAILY omega-3 acid ethyl esters 1 GM capsule 2 gm PO DAILY niacin 500 MG tablet 500 mg PO QHS vitamin B complex 1 EACH capsule 1 ea SL BID folic acid 0.8 MG tablet 0.8 mg PO DAILY 5-hydroxytryptophan (5-HTP) 100 MG capsule 100 mg PO BID lisdexamfetamine 50 MG capsule 60 mg PO DAILY Label Comments: TAKE ONE CAPSULE BY MOUTH EVERY DAY benazepril 40 MG tablet 40 mg PO DAILY ergocalciferol (vitamin D2) 50,000 UNIT capsule 50,000 unit PO Q7D Rx Instructions: on sundays hydrocodone-acetaminophen [hydrocodone-acetaminophen] 1 TABLET tablet 1 tab PO Q4H PRN PRN (Reason: Pain) 2 Days Qty: 14 0RF cephalexin [cephalexin] 500 mg capsule 500 mg PO Q6 Qty: 40 0RF aspirin 325 mg tablet,delayed release (DR/EC) 325 mg PO BID acetaminophen 500 mg tablet 500 mg PO BID Primary Care Provider: Chun Schneider Referrals: Doug Jenkins DO [Med Staff - Active Staff] - 5-7 Days Chun Schneider DO [Primary Care Provider] - Disposition Disposition: Home, Self Care
--- NOTE | 2022-04-09 22:55 | RAD_ITS ---
STUDY: X-RAY - LEFT HUMERUS REASON FOR EXAM: Male, 66 years old. fall/injury TECHNIQUE: 4 view(s) of the humerus. COMPARISON: December 23, 2018. FINDINGS: Concern for a nondisplaced oblique fracture through the base of the humeral head, best seen on image 4. No distal humeral fracture. No aggressive osseous lesion. Normal glenohumeral and acromioclavicular alignment. Normal elbow alignment. Severe glenohumeral and mild to moderate acromioclavicular osteophyte formation. RAD/Humerus min 2 Views IMPRESSION: Findings concerning for nondisplaced humeral head fracture. No evidence of distal humeral fracture. Osteoarthritis as above. Electronically Signed: Ben Andrews MD at 23:25 EDT ,
--- NOTE | 2022-04-09 22:55 | RAD_ITS ---
STUDY: X-RAY - LEFT SHOULDER REASON FOR EXAM: Male, 66 years old. fall/injury TECHNIQUE: 2 view(s) of the shoulder. COMPARISON: Humeral radiograph on same day. FINDINGS: Nondisplaced oblique fracture of the humeral surgical neck. Normal glenohumeral alignment with severe joint space narrowing and osteophyte formation. [id number] acromioclavicular degenerative changes with normal alignment. RAD/Shoulder min 2 Views IMPRESSION: Findings consistent with nondisplaced humeral surgical neck fracture. Severe glenohumeral and mild to moderate acromioclavicular osteoarthritis. Electronically Signed: Ben Andrews MD at 23:27 EDT ,
[2022-04-09] MEDS: oxyCODONE 5 MG Tablet 10 MG PO (23:24)
[2022-04-09 23:29] VITALS: BP 152/71; PULSE 71; RESP 18; O2SAT 96
== END 2022-04-09 23:30 | disposition home or self-care (01) ==
PROVIDERS: Emergency Provider Emergency Medicine; PCP Family Medicine; Visit Provider Emergency Medicine
DX: S42.215A Unspecified nondisplaced fracture of surgical neck of left humerus, initial encounter for closed fracture (principal); E66.01 Morbid (severe) obesity due to excess calories; Z68.41 Body mass index [BMI] 40.0-44.9, adult; W18.39XA Other fall on same level, initial encounter; Y93.89 Activity, other specified; Y99.8 Other external cause status; Y92.003 Bedroom of unspecified non-institutional (private) residence as the place of occurrence of the external cause; I25.10 Atherosclerotic heart disease of native coronary artery without angina pectoris; I10 Essential (primary) hypertension; E78.5 Hyperlipidemia, unspecified; Z79.899 Other long term (current) drug therapy; Z87.891 Personal history of nicotine dependence
CPT/HCPCS: 73030; 73060; 99283

== ENCOUNTER → 2022-04-30 | Outpatient (CLI) | payer BC, SELFPAY ==
--- NOTE | 2022-04-30 07:20 | CT_ITS ---
EXAM: CT LEFT UPPER EXTREMITY WITHOUT INTRAVENOUS CONTRAST, SHOULDER CLINICAL INDICATION: FX TECHNIQUE: Helically acquired images were obtained of the left shoulder without intravenous contrast. 2-D reformats were performed by the technologist. CTDIvol = ( 49.50 ) mGy, DLP = ( 1304.84 ) mGycm This CT exam was performed using one or more of the following dose reduction techniques: automated exposure control, adjustment of the mA and/or kV according to patient size, and/or use of iterative reconstruction technique. This report was created using [employer] technology. COMPARISON: None. FINDINGS: BONES/JOINTS: Severe degenerative changes of the glenohumeral joint with bony remodeling. Large osteophyte versus intra-articular ossific body at the superior aspect of the glenohumeral joint. No acute or healing fracture or malalignment. Severe hypertrophic degenerative changes of the acromioclavicular joint. Significant subacromial space narrowing concerning for rotator cuff impingement which can be better assessed with MRI. No significant glenohumeral joint effusion. SOFT TISSUES: Remaining soft tissues are unremarkable. No soft tissue swelling or gas. No radiopaque foreign body. OTHER FINDINGS: No suspicious masses or fluid collections. CT/Extremity Upper without Contra IMPRESSION: 1. Severe degenerative changes of the acromioclavicular joint and glenohumeral joint. 2. No acute osseous analysis. 3. Subacromial space narrowing is concerning for rotator cuff impingement. Electronically Signed: Jose Daniel MD at 21:17 EDT ,
== END | disposition home or self-care (01) ==
LOC: CT 07:18
PROVIDERS: PCP Family Medicine; Referring Provider Student in an Organized Health Care Education/Training Program; Visit Provider Student in an Organized Health Care Education/Training Program
DX: S42.295D Other nondisplaced fracture of upper end of left humerus, subsequent encounter for fracture with routine healing (principal); X58.XXXD Exposure to other specified factors, subsequent encounter; M19.012 Primary osteoarthritis, left shoulder
CPT/HCPCS: 73200

== ENCOUNTER 2022-06-12 10:27 | Observation (INO) | payer BC, SELFPAY ==
[2022-05-29 14:49] LABS: Absolute Lymphocyte Count 1.44 X10^3/uL (0.83-4.51); Absolute Neutrophil Count 3.6 X10^3/uL (2.0-7.7); Basophil# 0.09 X10^3/uL; Basophil% 1.6 % (0-1); Eosinophil# 0.13 X10^3/uL; Eosinophils% 2.3 % (0-5); Hematocrit 52.1 % (40-54); Hemoglobin 17.1 g/dL (13.0-16.5); Lymphocyte # 1.44 X10^3/ul (0.83-4.51); Lymphocyte % 25.6 % (19-41); Mean Corp Hgb Conc 32.8 g/dL (32-36); Mean Corpuscular Hgb 30.6 pg (27.0-32.0); Mean Corpuscular Volume 93.4 fL (80-94); Mean Platelet Vol. 9.5 fl (6.2-12.0); Monocyte# 0.39 X10^3/uL; Monocyte% 6.9 % (0-10); NRBC Flagged by Analyzer 0 % (0-5); Neutrophil # 3.55 X10^3/uL (2.7-7.7); Neutrophil % 63.2 % (47-70); Platelet Count 249 K/mm3 (150-450); RBC Distribution Width CV 13.2 % (11.6-14.6); RBC Distribution Width SD 45.7 fl (35.1-43.9); Red Blood Count 5.58 M/mm3 (4.6-6.2); White Blood Count 5.6 K/mm3 (4.4-11.0)
[2022-05-29 15:13] LABS: Anion Gap 4 (5-15); BUN 10 mg/dL (7-18); BUN/Creat Ratio 9.5 RATIO (10-20); Calcium,Total 9.3 mg/dL (8.5-10.1); Chloride 102 mmol/L (98-107); Creatinine, Serum 1.05 mg/dL (0.70-1.30); EST Glomerular Filtration Rate 75 mL/min (>60); Est Glom Filt Rate - Afr Amer 90 mL/min (>60); Glucose 100 mg/dL (74-106); Sodium Level 139 mmol/L (136-145)
[2022-05-29 15:31] LABS: AST(SGOT) 20 U/L (15-37); Alanine Aminotransfer ALT/SGPT 26 U/L (16-61); Albumin, Serum 3.8 g/dL (3.2-5.0); Alkaline Phosphatase 117 U/L (45-117); Bilirubin, Direct 0.17 mg/dL (0.00-0.30); Protein, Total 7.8 g/dL (6.4-8.2)
[2022-06-12] VITALS (16 sets, daily range): BP systolic 89–121; BP diastolic 48–71; PULSE 66–78; RESP 16–20; TEMP 36.6–37.2; O2SAT 93–100; BMI 46.3
--- NOTE | 2022-06-12 | SHO_PTH ---
PATIENT: YOHANA MARTINEZ LOC: [facility] U#:[id number] AGE/SX: 66/M ROOM: [facility]314 RE06/12/[address]: Dr. Doug Jenkins DO : 1955 BED: 1 DIS: 06/13/2022 SPEC #: [id number] RECD: 06/12/22 12:41 STATUS: MAR MONTEZ #: [id number] MICHELLE: 06/12/22 00:[address]: Doug Jenkins DEPT: SURGICAL PATHOLOGY RECD BY: Curtis Lopez ENTERED: 06/12/22 12:42 SP TYPE: HUMERUS OTHR DR: DO Magalis Alvarado PA Tissues: Humerus, NOS Procedures: Decalcification bone/plaque Surgery Specimen Level IV HEADER OPERATION: Left total shoulder replacement, reverse PRE-OP DIAGNOSIS: Left humeral fracture, Grade IV arthritis left shoulder TISSUE SUBMITTED: Left humeral head MICROSCOPIC DIAGNOSIS Bone and tissue of left shoulder, total shoulder replacement: Severe degenerative joint disease. Changes of organizing fracture site. AM:shahida 06/18/2022 MICROSCOPIC DESCRIPTION Slides are reviewed. GROSS DESCRIPTION Received in fixative is one container labeled with the patient's name and designated left humeral head. The specimen consists of a discoid fragment of distorted humeral head measuring 6.5 x 6 x 2.5 cm. No gross lesions are identified. Pole Cutter sections are submitted in two cassettes after decalcification. / AM:shahida 06/12/2022 TC:5 CPT: 60254, 11174
[2022-06-12] MEDS: Lactated Ringers 1,000 ML 999 ML IV (06:47)
[2022-06-12] MEDS: TXA 1000mg in NS100 100ml (IVPB at Incision) 660 MG IV (08:05)
[2022-06-12] MEDS: Lactated Ringers 1,000 ML 75 ML IV ×2 (09:01→12:37)
[2022-06-12] MEDS: Vancomycin IV 1,000 MG/20 ML Vial 1000 MG OPERA.SITE (09:50)
[2022-06-12] MEDS: TXA 1000mg in NS100 100ml (IVPB at Closure) 660 MG IV (09:51)
--- NOTE | 2022-06-12 10:06 | RAD_ITS ---
STUDY: X-RAY - LEFT SHOULDER REASON FOR EXAM: Male, 66 years old. Post op -- AP and Lateral X-Ray of operative shoulder in PACU TECHNIQUE: 2 view(s) of the shoulder. COMPARISON: Comparison is made with prior study dated 04/09/2022. FINDINGS: The patient is status post left reverse shoulder replacement. There is good alignment. Postoperative soft tissue changes. Mild increased markings at the left lung base suggestive of atelectasis. RAD/Shoulder min 2 Views IMPRESSION: Status post left reverse shoulder replacement. There is good alignment. Operative soft tissue changes. Electronically Signed: Agustín Escudero MD at 11:17 EST ,
--- NOTE | 2022-06-12 10:28 | OP.PCM_ITS ---
Report of Operation Date of Procedure: 06/12/22 Description of Surgical Findings:: Preoperative diagnosis: Left shoulder osteoarthritis Postoperative diagnosis: Left shoulder osteoarthritis Procedure: Left reverse total shoulder arthroplasty Surgeon: Doug Jenkins DO Hand Frame Surgical Elastic Knitter: Magalis Peter PA-C Anesthesia: General endotracheal Preparation Supervisor Freezing: John Jones CRNA Complications: None apparent Drains: None Estimated blood loss: 250 cc Urinary output: None IV fluids: 800 cc crystalloid Specimens: None Surgical implants: Tornier Aequalis PerFORM+ reversed half wedge augment baseplate 29 mm diameter, standard glenosphere cobalt chrome 42 mm diameter, Tornier perform inlay stem size #3, +6 size number 2 42 mm diameter polyethylene insert, 30 mm central screw. Peripheral screws x4. Surgical indications: This is a 66-year-old male with persistent left shoulder pain. He has been seen by other orthopedic providers in the past and told he needs a reverse shoulder arthroplasty. Patient has a history of rheumatoid arthritis. X-rays revealed severe grade 4 left osteoarthritis without proximal migration of the humerus. Significant glenoid retroversion was noted. Patient sustained a left nondisplaced proximal humerus fracture on 04/09/2022 in the setting of his severe arthritis. He was seen in our office to follow-up for the fracture. Given the patient's immobility and required time off work, we discussed intervening with a reverse shoulder arthroplasty. I recommended we let the fracture heal to allow for primary components to be used and decrease his risk of complication and improve rotation with tuberosity healing. I recommended a reverse shoulder arthroplasty. We obtained a preoperative CT scan for planning. The risks, benefits, alternatives the procedure was reviewed with the patient and he agreed to proceed. Risks included but were not limited to bleeding, infection, instability, loss of life or limb, risk of anesthesia, neurovascular injury, persistent pain, stiffness, prolonged immobilization, need for additional surgery, loosening of orthopedic hardware. He expressed understanding and wished to proceed with surgery. Surgical details: Patient arrived to [facility] morning of the procedure and was greeted by the same day surgery staff. Prior to his procedure, I greeted the patient in the preoperative holding area I identified the patient by name, record number, and date of . Informed consent was confirmed. The operat jeanette extremity was marked. All questions were answered to patient satisfaction. Patient was also seen by anesthesia staff. Interscalene block was deemed contraindicated by anesthesia staff due to morbid obesity. At time of his procedure, patient was brought to the operative suite and positioned supine on a standard table with a beachchair attachment. General anesthesia was induced after all bony prominences were well-padded. Endotracheal tube was placed. After adequate anesthesia and securing the tube, we prepared the patient to be positioned in the beachchair position. A well- padded head char filter tank tender was applied. The nonoperative extremity was placed in a well arm bonner. He was then brought into the beachchair position after we confirmed an appropriate blood pressure. We then spun the bed 45 degrees. The operative extremity was then prepared. In the butterfly wing of the bed was removed and a well-padded torso strap was applied to secure the patient to the bed. The operative extremity was now free. We then prepped and draped the left upper extremity in normal, sterile orthopedic fashion. We then performed a timeout with all parties in attendance in agreement with the side, site, and operation be performed. 3 g Ancef was administered prior to incision by anesthesia staff and 2 g vancomycin was administered throughout the procedure, as well as 1 g TXA IV. No concerns were voiced and we elected to proceed. I first marked a standard deltopectoral incision just lateral to the coracoid process in line with the long axis of the humerus. Skin was sharply incised wit h 10 blade scalpel. I then dissected bluntly through the subcutaneous layers and found the fat stripe between the deltoid and pectoralis major. The cephalic vein was then identified and protected. It was retracted laterally with the deltoid. I then bluntly dissected underneath the deltoid with a Gomes elevator. Panchito retractor was placed. The upper 1 cm of the pectoralis major was released. I then identified the long head of the biceps tendon in the intertubercular groove. This was tenodesed in situ with #2 FiberWire. I then amputated the biceps proximal to the tenodesis site and followed the tendon to the supraglenoid tubercle where it was amputated. This identified the lesser and greater tuberosities. The supraspinatus was completely torn and retracted with an exposed greater tuberosity. I then performed a subscapularis peel while rotating the humerus externally. There is significant internal rotation contracture as the patient lacked any external rotation preoperatively. I carefully elevated the contracted capsular tissue and performed a subscapularis peel sequentially externally rotating the shoulder. I tagged the subscapularis for possible repair later with a tagging suture. I then made a anatomic neck cut of the cartilaginous surface of the humeral head. Sizing plate for a size # 3 stem was utilized to determine appropriate reaming size. A central pin was placed engaging the lateral cortex of the humerus. A size #3reamer was ued to ream the humeral metaphysis and prepare for the inlay stem. A canal finding reamer was utilized prior to sequential broaching to a size #3 short stem with excellent rotational and axial purchase in the humerus. I remove the broach handle left the size #[address] I then subluxed the humerus posterior to the glenoid. I then placed retractors around the posterior and anterior glenoid to expose the glenoid. Glenoid labrum was removed with Bovie cautery protecting the axillary nerve. We then used the custom guide from [employer] to position our centering pin. Guide was removed and pin was analyzed and compared to preoperative planning. It appeared to be in appropriate position. The augmented wedge reamer was then placed to sit flush with the [place] glenoid. Rotation of the wedge reamer appeared consistent with preoperative planning. This was reamed about 2 mm deep to cortical bone. We then remove the reamer and used the cannulated drill for the central 30 mm screw. Pin was removed. Post and baseplate was assembled on the back table. We then inserted the baseplate and central screw the assembled baseplate to an appropriate depth and rotation of the wedge to sit flush with the prepared glenoid surface. A [place] was used to confirm depth. Cortical screws then were placed in the peripheral holes with good purchase. The baseplate had excellent purchase and the entire scapula would rotate with rotation of the baseplate. We then impacted the 42 mm glenosphere with a standard eccentricity and tightened the locking screw mechanism. We then removed retractors and turned our attention back to the humerus. We trialed sequentially 0, +3 and +6 mm polyethylene insert thicknesses. The +6 mm polyethylene insert demonstrate improved deltoid wrap and stability. There was excellent range of motion and stability in all planes of motion. We selected this as our final size. We removed trials from the humerus after final dislocation. I copiously irrigated the canal. Broach was placed on hand and then impacted to an appropriate depth. Final +6 mm polyethylene insert was placed. Final reduction was then performed. I then copiously irrigated the wound with irrisept and normal saline solution. Hemostasis was excellent. The axillary nerve was visualized and appeared to be intact. The subscapularis was then identified with a tagging suture. Repair would have been likely under undue tension and likely failed. I elected to not perform a subscapularis repair. A periarticular and subcutaneous block was administered with particular joint compound containing Duramorph, ropivacaine, epinephrine, ketorolac. We then copiously irrigated the wound with sterile Betadine and normal saline solution. Betadine was allowed to soak for 3 minutes before thoroughly irrigated with normal saline. 1 g vancomycin powder was placed in the deep joint and subcutaneous tissues. We reapproximated the interval with 0 Vicryl suture. Subcutaneous layers were reapproximated with 2 -0 Vicryl suture. Skin was finally running V-Loc 3-0 Monocryl suture and Dermabond. A sterile silver Mepilex dressing was applied. Patient was then placed in a simple sling. Patient tolerated procedure well without complication. He was positioned back in the supine position extubated in the operative suite. He was transferred to the rney and subsequently to PACU in stable condition. Need for skilled mortgage assistant: Magalis Peter PA-C was critical to the outcome of the case. During the course of the procedure the physician mortgage assistant played a vital role. Her intimate knowledge of my steps in the procedure aided in safe and expedient completion of the procedure. The PA played a vital role in positioning particularly in obtaining the appropriate positioning. The PA was also vital in the retraction of soft tissues during the exposure and protecting vital structures. The PA was also vital and protecting soft tissues during times of bony cuts. She also played a vital role in closure with my direct supervision. The PA was also important during reduction and dislocation of the joint and trials intraoperatively. Post Operative Plan: Weightbearing: Nonweightbearing left upper extremity, okay for pendulums. Range of motion of wrist elbow and hand as tolerated. Antibiotics: 3 g Ancef IV prior to incision, 24 hours IV antibiotics postoperatively DVT Prophylaxis: Aspirin enteric-coated 81 mg twice daily starting tomorrow Shore: None Dressing: Maintain silver dressing x7 days. Okay to shower dressing on started on day 4 X-Rays: 2 weeks postop in the office Pain Medication: Oxycodone Rx upon discharge Follow-up: 2 weeks post-operatively with me in the office
--- NOTE | 2022-06-12 13:35 | PN.HOSP_ITS ---
Subjective Subjective Patient reports his left shoulder discomfort is mild and states that he has been living with discomfort for quite some time so this is relatively low on the pain scale compared to his normal. He is complete function to the left upper extremity and sensation is intact. Patient denies fevers, chills, nausea, emesis, abdominal pain, chest pain or dyspnea. Objective Data Objective Data Vital Signs: Vital Signs Temp Pulse Resp BP Pulse Ox O2 Del Method O2 Flow Rate 98.0 F 77 18 113/71 98 Room Air 4 06/12/22 13:00 06/12/22 13:00 06/12/22 13:00 06/12/22 13:00 06/12/22 13:00 06/12/22 13:00 06/12/22 12:15 Oxygen Flow Rate (L/min) 4 Oxygen Delivery Method Room Air Weight: 305 lb Body Mass Index (BMI) 46.3 Intake & Output: Intake and Output for Last 24 Hours 06/10/22 06/11/22 06/12/22 23:59 23:59 23:59 Intake Total 2875 / 2875 Balance 2875 / 2875 Lab / Micro Data Result Diagrams: 05/29/22 14:24 05/29/22 14:24 Micro: Microbiology 05/29/22 14:24 Swab (Method) Nasal Screen MRSA/MSSA - Final Radiography Diagnostic Testing: Radiology Impression Shoulder X-Ray 06/12/22 10:06 IMPRESSION: Status post left reverse shoulder replacement. There is good alignment. Operative soft tissue changes. Electronically Signed: Agustín Escudero MD at 11:17 EST , Physical Exam Narrative Physical Examination: General: Awake, alert, oriented x 3 and cooperative[facility], no acute distress. Skin: Normal color, normal turgor, no icterus, no cyanosis except status post left shoulder surgery with dressings in place, no drainage. HEENT: AT/NC, EOMI, PERRLA, mildly dry MM. Lungs: Mildly diminished, greater bases, appropriate effort, no rales, ronchi or wheezing. Heart: Currently regular rate and rhythm; no gallop, rub audible, + SM, s/p TAVR . Abdomen: Soft, morbidly obese, NTTP, ND, mildly hyperactive BS Extremities: No cyanosis, clubbing, or edema, left upper extremity in expected sling status post left shoulder surgery. Neurological: Patient awake, alert, oriented as noted, cognitive function intact; pupils equally reactive to light and accommodation, cranial nerves II- XII grossly normal, moving all 4 extremities except expected limitation left upper extremity given recent OR with left shoulder intervention, strength accordingly moderately to severely globally decreased. Psychiatric: Affect appears normal, no acute evidence of depressive or anxiety feelings. Assessment & Plan Assessment/Plan (1) Osteoarthritis, shoulder: PLAN: Plan The patient is a 66 y/o M w/ PMHx: ADHD, Morbid obesity, RADHA on CPAP q HS, Valvular Heart Disease s/p TAVR, Nonobstructive CAD, HTN, HLD, Myasthenia gravis, Hx Prostate CA, Hx Hepatitis C, Former tobacco use, Chronic bradycardia who presents to the [facility] on 06/12/22 for planned left reverse total shoulder arthroplasty per Dr. Jenkins. #1. Severe Osteoarthritis, left shoulder: Failed conservative therapies and treatments, admitted per Dr. Jenkins for planned 06/12/2022 left reverse total s houlder arthroplasty, post-operative pain management, bowel regimen, DVT Prophylaxis, PT/OT/CM per Orthopedic surgery discretion. #2. Nonobstructive CAD: We will continue aspirin, not on statin therapy, benazepril, not on beta-louisa with history of bradycardia. #3. Valvular heart disease: Echo cardiogram 11/28/2021 with normal systolic function EF 65%, no regional wall motion abnormalities, grade 1 diastolic dysfunction, mild to moderate mitral valve stenosis, mild to moderate mitral regurgitation, aortic valve with 23 mm Darnell CHEYANNE [address] valve in place with no evidence of regurgitation. #4. Hypertension: Continue home regimen including Lasix, benazepril, PRN hydra lazine. #5. Hyperlipidemia: Not on statin therapy, defer to outpatient. #6. ADHD: We will continue patient home lisdexamfetamine. #7. History of hepatitis C: Noted history, encourage continued outpatient follow-up. #8. Myasthenia gravis: Per currently regimen list not on any medications, enc ourage continued close follow-up. #9. History of prostate cancer: Status post intervention, considered in remission. #10 male hypogonadism: Patient is on testosterone IM injections q. 14 days outpa tient. #11. RADHA: CPAP nightly. #12. Morbid Obesity: Weight loss and lifestyle changes encouraged. #13. DVT prophylaxis: SCDs, chemoprophylaxis per surgery discretion given recent OR. Charges/Coding Visit Charges Inpatient E&M: 63175 Subs Hosp L3
[2022-06-12] MEDS: Acetaminophen 500 MG Tablet 1000 MG PO ×2 (13:48→21:44)
[2022-06-12] MEDS: Pregabalin 50 MG Capsule 100 MG PO ×2 (13:48→21:43)
[2022-06-12] MEDS: Cefazolin 1 GM/50 ML BAG IV ×2 (14:53→23:28)
[2022-06-12] MEDS: Senna/Docusate Sodium 1 Tablet 2 TABLET PO (21:44)
[2022-06-13] MEDS: Lactated Ringers 1,000 ML 75 ML IV (03:06)
[2022-06-13 03:10] VITALS: BP 113/71; PULSE 54; RESP 18; TEMP 36.6; O2SAT 98
[2022-06-13 04:41] LABS: Hematocrit 43.7 % (40-54); Hemoglobin 14.1 g/dL (13.0-16.5); Mean Corp Hgb Conc 32.3 g/dL (32-36); Mean Corpuscular Hgb 29.7 pg (27.0-32.0); Mean Platelet Vol. 9.7 fl (6.2-12.0); Platelet Count 239 K/mm3 (150-450); RBC Distribution Width CV 12.9 % (11.6-14.6); Red Blood Count 4.75 M/mm3 (4.6-6.2); White Blood Count 12.6 K/mm3 (4.4-11.0)
[2022-06-13 05:09] LABS: Anion Gap 6 (5-15); BUN 25 mg/dL (7-18); BUN/Creat Ratio 20.2 RATIO (10-20); Calcium,Total 7.7 mg/dL (8.5-10.1); Chloride 100 mmol/L (98-107); Creatinine, Serum 1.24 mg/dL (0.70-1.30); EST Glomerular Filtration Rate 62 mL/min (>60); Est Glom Filt Rate - Afr Amer 74 mL/min (>60); Estimated Creatinine Clearance 55.16 ml/min; Glucose 161 mg/dL (74-106); Potassium 4.6 mmol/L (3.5-5.1); Sodium Level 135 mmol/L (136-145)
[2022-06-13] MEDS: Acetaminophen 500 MG Tablet 1000 MG PO (05:41)
[2022-06-13] MEDS: Pregabalin 50 MG Capsule 100 MG PO (05:41)
[2022-06-13] MEDS: oxyCODONE 5 MG Tablet 10 MG PO (05:41)
--- NOTE | 2022-06-13 07:28 | PN.ORTHO_ITS ---
Subjective Subjective Patient seen and examined. Pain controlled current pain regimen. Denies fevers, chills, nausea vomiting, chest pain or shortness of breath. Urinating without difficulty. Objective Data Objective Data Vital Signs: Vital Signs Temp Pulse Resp BP Pulse Ox O2 Del Method O2 Flow Rate 98 F 54 L 18 113/71 98 Nasal Cannula 2 06/13/22 03:10 06/13/22 03:10 06/13/22 03:10 06/13/22 03:10 06/13/22 03:10 06/13/22 03:10 06/13/22 03:10 Oxygen Flow Rate (L/min) 2 Oxygen Delivery Method Nasal Cannula Weight: 305 lb Body Mass Index (BMI) 46.3 Intake & Output: Intake and Output for Last 24 Hours 06/11/22 06/12/22 06/13/22 23:59 23:59 23:59 Intake Total 3147.5 / 3647.5 1927.5 / 1927.5 Output Total 450 / 450 Balance 3147.5 / 3447.5 1477.5 / 1477.5 Lab / Micro Data Result Diagrams: 06/13/22 04:30 06/13/22 04:30 Labs: Laboratory Results - last 24 hr 06/13/22 04:30: WBC 12.6 H, RBC 4.75, Hgb 14.1, Hct 43.7, MCV 92.0, MCH 29.7, MCHC 32.3, RDW Std Deviation 44.0 H, RDW Coeff of Shahzad 12.9, Plt Count 239, MPV 9.7 06/13/22 04:30: Sodium 135 L, Potassium 4.6, Chloride 100, Carbon Dioxide 29.0, Anion Gap 6, BUN 25 H, Creatinine 1.24, Estim Creat Clear Calc 55.16, Est GFR (M DRD) Af Amer 74, Est GFR (MDRD) Non-Af 62, BUN/Creatinine Ratio 20.2 H, Glucose 161 H, Calcium 7.7 L Micro: Microbiology 05/29/22 14:24 Swab (Method) Nasal Screen MRSA/MSSA - Final Radiography Diagnostic Testing: Radiology Impression Shoulder X-Ray 06/12/22 10:06 IMPRESSION: Status post left reverse shoulder replacement. There is good alignment. Operative soft tissue changes. Electronically Signed: Agustín Escudero MD at 11:17 EST , Physical Exam Narrative General - A&Ox3, NAD. VSS/AF. Left upper Extremity - SILT & motor intact in radial, ulnar, musculocutaneous, axillary, and median nerve distributions. Radial, ulnar pulses 2+. Compartments soft and compressible. BCR in finger tips. Incisional dressing C/D/I. Assessment & Plan Assessment/Plan (1) Osteoarthritis, shoulder: PLAN: POD#1 s/p left reverse shoulder arthroplasty - Pain control - Medicine following for medical management -Occupational Therapy -nonweightbearing left upper extremity, pendulums only left shoulder, range of motion as tolerated left elbow wrist and hand. - DVT PPX -aspirin 81 mg twice daily, early mobilization, SCDs -Anticipate discharge to home today if cleared by hospitalist and therapy.
[2022-06-13 07:42] VITALS: O2SAT 97
[2022-06-13] MEDS: Aspirin E.C. 81 MG Tablet PO (08:13)
[2022-06-13] MEDS: Folic Acid 1 MG Tablet PO (08:13)
[2022-06-13] MEDS: Famotidine 20 MG Tablet PO (08:13)
[2022-06-13] MEDS: Potassium Chloride Oral Tablet 20 MEQ PO (08:13)
[2022-06-13] MEDS: Meloxicam 7.5 MG Tablet PO (08:13)
[2022-06-13] MEDS: Furosemide 40 MG Tablet PO (08:13)
[2022-06-13] MEDS: Lisinopril 40 MG Tablet PO (08:14)
[2022-06-13] MEDS: Senna/Docusate Sodium 1 Tablet 2 TABLET PO (08:14)
[2022-06-13 08:18] VITALS: BP 104/59; PULSE 69; RESP 18; TEMP 36.3; O2SAT 97
--- NOTE | 2022-06-13 11:05 | CASEMGMT ---
RN CM Face to Face with patient for initial transition planning/care coordination assessment. RN CM introduced self and role at [facility]. Patient sitting in chair, alert and oriented. Patient willing to participate in assessment and is able to answer all questions appropriately. Care providers, pharmacy, and demographics verified. Patient wishes to discharge home, denies need for home health at this time. Patient states he has no further needs or concerns at this time. CM to follow for discharge planning needs that may arise. PCP: Wyatt Specialists: isaiah Jenkins; Varun, dairy powder mixer operator Preferred Pharmacy: [email or web address]; [facility] retail at discharge. Insurance: [employer] Prescription Benefit: yes Living Will/HPOA: none LNOK: Living Arrangements: Patient lives , nephew, and niece in a split level home with 9 steps and railing between levels. Patient states he is independent at home. Transportation: self, DME/HHC: Patient states he has raised toilet, cane, walker, and cpap at home. Patient has had [facility] in the past. Disposition Plan: Patient to discharge home with family support and follow-up plans in place. Taylor SHRESTHA, RN, CM
--- NOTE | 2022-06-13 13:11 | PCM.DC.SUM ---
Providers Date of Admission: 06/12/22 Primary Care Physician: Dr. Chun Schneider, DO Consultations 06/12/22 10:12 Consult: Hospitalist Routine Consulting Provider: Supriya Clark Reason for Consult: Post-op medical management, s/p L reverse shoulder EMERGENT Consult: No MD Notified: Yes Date Notified: 06/12/22 Time Notified: 13:21 Method of Notification: saw pt in room Reason For Visit: LEFT REVERSE TOTAL SHOULDER Diagnosis Discharge Diagnosis (1) Osteoarthritis, shoulder: Status: Acute Code(s): M19.019 - Primary osteoarthritis, unspecified shoulder Plan: POD#1 s/p left reverse shoulder arthroplasty - Pain control - Medicine following for medical management -Occupational Therapy -nonweightbearing left upper extremity, pendulums only left shoulder, range of motion as tolerated left elbow wrist and hand. - DVT PPX -aspirin 81 mg twice daily, early mobilization, SCDs -Anticipate discharge to home today if cleared by hospitalist and therapy. Medications at Discharge Home Medications furosemide 40 mg tablet 40 mg PO DAILY diuretic/water pill 02/14/15 niacin 500 mg tablet 500 mg PO QHS supplement 02/14/15 omega-3 acid ethyl esters 1 gram capsule 2 gm PO DAILY supplement 02/14/15 potassium chloride 20 mEq tablet,extended release(part/cryst) 20 meq PO DAILY supplement 02/14/15 testosterone cypionate 100 mg/mL intramuscular oil 1 ml IM Q14D hormone 02/14/15 folic acid 800 mcg tablet 0.8 mg PO DAILY supplement 03/09/17 lisdexamfetamine 50 mg capsule 60 mg PO DAILY ADHD 03/09/17 benazepril 40 mg tablet 40 mg PO DAILY blood pressure 07/12/19 ergocalciferol (vitamin D2) 1,250 mcg (50,000 unit) capsule 50,000 unit PO Q7D supplement 08/19/20 pregabalin 100 mg capsule 100 mg PO TID 01/25/21 acetaminophen 500 mg tablet 500 mg PO BID for arthritis pain 05/16/21 sildenafil 100 mg tablet 100 mg PO DAILY 11/04/21 aspirin 81 mg capsule 81 mg PO DAILY 05/28/22 acetaminophen 500 mg tablet 1,000 mg PO Q8 14 days #84 tabs 06/13/22 aspirin 81 mg tablet,delayed release 81 mg PO BID 14 days #28 tabs 06/13/22 famotidine 20 mg tablet 20 mg PO DAILY 14 days #14 tabs 06/13/22 meloxicam 7.5 mg tablet 7.5 mg PO BID 30 days #60 tabs 06/13/22 oxycodone 5 mg tablet 10 mg PO Q4H PRN PRN Pain Score 6-10 7 days #42 tabs 06/13/22 sennosides 8.6 mg-docusate sodium 50 mg tablet (Stool Softener-Stimulant Laxative) 2 tab PO BID 7 days #28 tabs 06/13/22 Hospital Course Summary of Care Provided Minutes Spent on Discharge: 20 Hospital Course: Patient underwent uncomplicated left reverse shoulder arthroplasty/08/03. He was placed in observation for early convalescence and medical monitoring. Internal medicine consult was placed for medical management. He did well and was able be safely discharged home on postoperative day #1. No medical or surgical complications were encountered throughout his stay. Physical Exam Narrative General - A&Ox3, NAD. VSS/AF. Left upper Extremity - SILT & motor intact in radial, ulnar, musculocutaneous, axillary, and median nerve distributions. Radial, ulnar pulses 2+. Compartments soft and compressible. BCR in finger tips. Incisional dressing C/D/I. Weight / BMI Weight Weight: 305 lb Body Mass Index (BMI) 46.3 ABG / Lab / Microbiology Data Result Diagrams: 06/13/22 04:30 06/13/22 04:30 Laboratory: Laboratory Results - last 24 hr 06/13/22 04:30: WBC 12.6 H, RBC 4.75, Hgb 14.1, Hct 43.7, MCV 92.0, MCH 29.7, MCHC 32.3, RDW Std Deviation 44.0 H, RDW Coeff of Shahzad 12.9, Plt Count 239, MPV 9.7 06/13/22 04:30: Sodium 135 L, Potassium 4.6, Chloride 100, Carbon Dioxide 29.0, Anion Gap 6, BUN 25 H, Creatinine 1.24, Estim Creat Clear Calc 55.16, Est GFR (MDRD) Af Amer 74, Est GFR (MDRD) Non-Af 62, BUN/Creatinine Ratio 20.2 H, Glucose 161 H, Calcium 7.7 L Microbiology: Microbiology 05/29/22 14:24 Swab (Method) Nasal Screen MRSA/MSSA - Final Meaningful Use Info Meaningful Use Diagnoses (Choose all that apply): None applicable Discharge Plan Admission Admit Date/Time: 06/12/22 10:27 Primary Reason for Your Visit: Left shoulder replacement Attending Provider: Doug Jenkins Primary Care Provider: Chun Schneider Consulting Providers: Magalis Peter ; Supriya Clark ; Be Mejias Instructions Additional Instructions / Restrictions: Follow preprinted instructions from your surgeons office Discharge Orders/Prescriptions Prescriptions: New meloxicam 7.5 mg Tablet 7.5 mg PO BID 30 Days Qty: 60 0RF famotidine 20 mg Tablet 20 mg PO DAILY 14 Days Qty: 14 0RF aspirin 81 mg Tablet,Delayed Release (Dr/Ec) 81 mg PO BID 14 Days Qty: 28 0RF oxycodone 5 mg Tablet 10 mg PO Q4H PRN PRN (Reason: Pain Score 6-10) 7 Days Qty: 42 0RF sennosides-docusate sodium [Stool Softener-Stimulant Laxat] 8.6-50 mg Tablet 2 tab PO BID 7 Days Qty: 28 0RF acetaminophen 500 mg Tablet 1,000 mg PO Q8 14 Days Qty: 84 0RF Continued pregabalin 100 mg capsule 100 mg PO TID Label Comments: TAKE 1 CAPSULE BY MOUTH 3 TIMES A DAY sildenafil 100 mg tablet 100 mg PO DAILY furosemide 40 MG tablet 40 mg PO DAILY testosterone cypionate 100 MG/ML oil 1 ml IM Q14D potassium chloride 20 MEQ tablet 20 meq PO DAILY omega-3 acid ethyl esters 1 GM capsule 2 gm PO DAILY niacin 500 MG tablet 500 mg PO QHS folic acid 0.8 MG tablet 0.8 mg PO DAILY lisdexamfetamine 50 MG capsule 60 mg PO DAILY Label Comments: TAKE ONE CAPSULE BY MOUTH EVERY DAY benazepril 40 MG tablet 40 mg PO DAILY ergocalciferol (vitamin D2) 50,000 UNIT capsule 50,000 unit PO Q7D Rx Instructions: on sundays aspirin 81 mg Capsule 81 mg PO DAILY acetaminophen 500 mg tablet 500 mg PO BID Referrals / Follow Up: Doug Jenkins DO [Med Staff - Active Staff] - Chun Schneider DO [Primary Care Provider] - Disposition Disposition (needs filled in before D/C Order can be placed): Home, Self Care
[2022-06-13 13:27] VITALS: BP 104/59; PULSE 70; RESP 18; TEMP 36.3; O2SAT 97
== END 2022-06-13 14:30 | disposition home or self-care (01) ==
LOC: SDC 10:54 → MS3 10:54
PROVIDERS: Anesthesiology; Admitting Provider Student in an Organized Health Care Education/Training Program; PCP Family Medicine; Referring Provider Student in an Organized Health Care Education/Training Program; Visit Provider Student in an Organized Health Care Education/Training Program
PROC: (CPT 23472; principal; 2022-06-12 07:00)
DX: M19.012 Primary osteoarthritis, left shoulder (principal); E66.01 Morbid (severe) obesity due to excess calories; Z68.42 Body mass index [BMI] 45.0-49.9, adult; Z79.899 Other long term (current) drug therapy; Z79.82 Long term (current) use of aspirin; M10.9 Gout, unspecified; I10 Essential (primary) hypertension; E78.5 Hyperlipidemia, unspecified; I25.10 Atherosclerotic heart disease of native coronary artery without angina pectoris; G47.33 Obstructive sleep apnea (adult) (pediatric); E29.1 Testicular hypofunction; Z85.46 Personal history of malignant neoplasm of prostate; Z86.19 Personal history of other infectious and parasitic diseases
CPT/HCPCS: 23472; 01638; 36415; 73030; 80048; 80076; 85025; 85027; 87077; 87081; 88305; 88311; 96361; 96365; 96366; 97166; 99218; 99251; C1776; J7040; J7120; G0378; G0463; J2405

== ENCOUNTER 2022-06-26 17:57 | Inpatient (IN) | payer BC, SELFPAY ==
[2022-06-26] VITALS (10 sets, daily range): BP systolic 105–137; BP diastolic 71–81; PULSE 75–94; RESP 15–18; TEMP 36.9; O2SAT 94–99; BMI 46.0; BMI 45.6
--- NOTE | 2022-06-26 18:09 | EKG12_ITS ---
Test Reason : CP Blood Pressure : / mmHG Vent. Rate : 083 BPM Atrial Rate : 083 BPM P-R Int : 168 ms QRS Dur : 090 ms QT Int : 330 ms P-R-T Axes : 040 028 049 degrees QTc Int : 387 ms Normal sinus rhythm Normal ECG Confirmed by TIMBO CURTIS, EPIFANIO ([id number]), publication editor YADY DURBIN ([id number]) on 06/28/2022 7:29:27 AM Referred By: JADA/KERA Confirmed By:EPIFANIO IZQUIERDO MD
--- NOTE | 2022-06-26 18:41 | EKG12_ITS ---
Test Reason : CP ADMIT Blood Pressure : / mmHG Vent. Rate : 077 BPM Atrial Rate : 077 BPM P-R Int : 182 ms QRS Dur : 084 ms QT Int : 350 ms P-R-T Axes : 038 008 035 degrees QTc Int : 396 ms Normal sinus rhythm Possible Inferior infarct , age undetermined Abnormal ECG When compared with ECG of 26-JUN-2022 18:09, MANUAL COMPARISON REQUIRED, DATA IS UNCONFIRMED Confirmed by NBA CURTIS, SHANNON ([id number]), research editor YADY DURBIN ([id number]) on 06/27/2022 1:03:58 PM Referred By: MARK Confirmed By:SHANNON ARANGO MD
[2022-06-26 18:51] LABS: Absolute Lymphocyte Count 1.43 X10^3/uL (0.83-4.51); Absolute Neutrophil Count 6.4 X10^3/uL (2.0-7.7); Basophil% 1.2 % (0-1); Eosinophil# 0.19 X10^3/uL; Eosinophils% 2.2 % (0-5); Hematocrit 49.2 % (40-54); Hemoglobin 15.9 g/dL (13.0-16.5); Lymphocyte # 1.43 X10^3/ul (0.83-4.51); Lymphocyte % 16.5 % (19-41); Mean Corp Hgb Conc 32.3 g/dL (32-36); Mean Corpuscular Hgb 30.1 pg (27.0-32.0); Mean Platelet Vol. 9.1 fl (6.2-12.0); Monocyte% 5.8 % (0-10); NRBC Flagged by Analyzer 0 % (0-5); Neutrophil # 6.41 X10^3/uL (2.7-7.7); Neutrophil % 73.8 % (47-70); Platelet Count 346 K/mm3 (150-450); RBC Distribution Width CV 13.2 % (11.6-14.6); RBC Distribution Width SD 45.4 fl (35.1-43.9); Red Blood Count 5.29 M/mm3 (4.6-6.2); White Blood Count 8.7 K/mm3 (4.4-11.0)
[2022-06-26 19:14] LABS: Anion Gap 1 (5-15); BUN 14 mg/dL (7-18); BUN/Creat Ratio 14.7 RATIO (10-20); Calcium,Total 9.3 mg/dL (8.5-10.1); Chloride 105 mmol/L (98-107); Creatinine, Serum 0.95 mg/dL (0.70-1.30); EST Glomerular Filtration Rate 83 mL/min (>60); Est Glom Filt Rate - Afr Amer 101 mL/min (>60); Glucose 99 mg/dL (74-106); Potassium 4.5 mmol/L (3.5-5.1); Sodium Level 141 mmol/L (136-145); Troponin-I HS 105 pg/mL (3.0-78.0)
--- NOTE | 2022-06-26 19:54 | RAD_ITS ---
STUDY: X-RAY CHEST REASON FOR EXAM: Male, 66 years old. Chest pain TECHNIQUE: Single AP portable view of the chest. COMPARISON: None. FINDINGS: The lungs are clear and expanded. There is no demonstrated pleural abnormality. Normal size heart. Normal mediastinum and eduardo. Normal visualized pulmonary arteries. There is atherosclerotic calcification of the aortic arch with tortuosity. Normal visualized thoracic spine. There is left shoulder replacement. There is no demonstrated abnormality of the visualized soft tissue structures of the upper abdomen. RAD/Chest 1 View (Portable) IMPRESSION: No acute cardiopulmonary disease. Electronically Signed: Josue Girard MD at 20:18 EST ,
--- NOTE | 2022-06-26 19:57 | CT_ITS ---
STUDY: CTA CHEST REASON FOR EXAM: Male, 66 years old. Chest pain RADIATION DOSAGE (If Supplied By Facility): CTDIvol = ( 13.85 ) mGy, DLP = ( 590.12 ) mGycm TECHNIQUE: The examination was performed with the intravenous administration of 100mL Isovue-370. Post-processing of the angiographic images was performed, with multiplanar reformation and 3D reconstruction. Individualized dose optimization techniques were used for this CT. COMPARISON: Left shoulder series 06/12/2022 FINDINGS: There is limited enhancement of the main pulmonary artery and right and left pulmonary arteries. There is limited enhancement of the bilateral peripheral pulmonary arteries. No large or central pulmonary emboli detected. Smaller distal emboli cannot be excluded due to is suboptimal opacification. Mild ectasia ascending aorta. There is no demonstrated aortic dissection. Normal heart and pericardium. TAVR. Normal mediastinum. Normal hilar regions. Normal visualized trachea and bronchi. No infiltrates, consolidations or mass lesions. 4 mm pleural-based noncalcified nodule right middle lobe. No pleural effusions. Partially imaged fluid collection with gas bubbles anterior to the left shoulder prosthesis measuring up to 6 cm. No acute or aggressive osseous abnormality. Left shoulder prosthesis minimally imaged. Hepatic cyst. No acute findings in the upper abdomen. Layering calcified gallstones. CT/CTA Chest W/WO Contrast IMPRESSION: Study limited by suboptimal pulmonary artery opacification. No large or central pulmonary emboli. Smaller distal emboli cannot be reliably excluded. Postoperative changes left shoulder from recent shoulder replacement. Anterior fluid collection with gas bubbles measures up to 6 cm and an infected collection is a possibility. Electronically Signed: Scar Griggs MD at 20:58 EST ,
[2022-06-26 20:37] LABS: BNP,B-Type NATRIURETIC PEPTIDE 22.5 pg/mL (0-100)
[2022-06-26 21:25] LABS: Troponin-I HS 101 pg/mL (3.0-78.0)
--- NOTE | 2022-06-26 21:35 | CON.PCM.OR_ITS ---
HPI Consult Data Date of Consult: 06/26/22 HPI Narrative HPI Narrative: YOHANA MARTINEZ, is a 66 M who presents called by ED Dr. Hines, 930pm. CT chest showed some fluid anterior to RTSA by Dr. Jenkins 2 weeks ago but no concerns for infection otherwise, patient being worked up for arm pain to rule out cardiac causes. [facility] Medical History (Updated 06/26/22 @ 21:38 by Alfredo Bennett MD) Arthritis Bradycardia with 41-50 beats per minute Cancer Cardiology follow-up encounter Colonic polyp Coronary artery disease COVID-19 virus detected (08/03/21) CPAP (continuous positive airway pressure) dependence Disc degeneration, lumbar Dyslipidemia Elevated troponin Essential (primary) hypertension Fatigue Former smoker Hay fever Hiatal hernia Hiatal hernia History of echocardiogram History of hepatitis C History of stress test Hypogonadism in male Hypoxemia Knee pain Leg cramps Lower GI bleed Morbid obesity with BMI of 45.0-49.9, adult Myasthenia gravis Nonobstructive atherosclerosis of coronary artery Nonrheumatic aortic (valve) stenosis Obstructive sleep apnea Osteoarthritis of left hip Prostate cancer Rheumatoid arthritis Shoulder pain Sleep apnea Wears glasses Home Medications furosemide 40 mg tablet 40 mg PO DAILY diuretic/water pill 02/14/15 [History Last Taken 06/11/22] niacin 500 mg tablet 500 mg PO QHS supplement 02/14/15 [History Last Taken 06/11/22] omega-3 acid ethyl esters 1 gram capsule 2 gm PO DAILY supplement 02/14/15 [History Last Taken 06/11/22] potassium chloride 20 mEq tablet,extended release(part/cryst) 20 meq PO DAILY supplement 02/14/15 [History Last Taken 06/11/22] testosterone cypionate 100 mg/mL intramuscular oil 1 ml IM Q14D hormone 02/14/15 [History Last Taken 06/11/22] folic acid 800 mcg tablet 0.8 mg PO DAILY supplement 03/09/17 [History Last Taken 06/11/22] lisdexamfetamine 50 mg capsule 60 mg PO DAILY ADHD 03/09/17 [History Last Taken 06/11/22] benazepril 40 mg tablet 40 mg PO DAILY blood pressure 07/12/19 [History Last Taken 06/12/22 04:45] ergocalciferol (vitamin D2) 1,250 mcg (50,000 unit) capsule 50,000 unit PO Q7D supplement 08/19/20 [History Last Taken 06/11/22] pregabalin 100 mg capsule 100 mg PO TID 01/25/21 [History Last Taken 06/11/22] acetaminophen 500 mg tablet 500 mg PO BID for arthritis pain 05/16/21 [History Last Taken 06/11/22] sildenafil 100 mg tablet 100 mg PO DAILY 11/04/21 [History Last Taken 06/11/22] aspirin 81 mg capsule 81 mg PO DAILY 05/28/22 [History Last Taken 06/11/22] acetaminophen 500 mg tablet 1,000 mg PO Q8 14 days #84 tabs 06/13/22 [Rx Last Taken Unknown] aspirin 81 mg tablet,delayed release 81 mg PO BID 14 days #28 tabs 06/13/22 [Rx Last Taken Unknown] famotidine 20 mg tablet 20 mg PO DAILY 14 days #14 tabs 06/13/22 [Rx Last Taken Unknown] meloxicam 7.5 mg tablet 7.5 mg PO BID 30 days #60 tabs 06/13/22 [Rx Last Taken Unknown] oxycodone 5 mg tablet 10 mg PO Q4H PRN PRN Pain Score 6-10 7 days #42 tabs 06/13/22 [Rx Last Taken Unknown] sennosides 8.6 mg-docusate sodium 50 mg tablet (Stool Softener-Stimulant Laxative) 2 tab PO BID 7 days #28 tabs 06/13/22 [Rx Last Taken Unknown] Allergy/AdvReac Type Severity Reaction Status Date / Time hydromorphone HCl Allergy nausea, Verified 06/26/22 18:03 [From Dilaudid] confusion Surgical History H/O laminectomy H/O total knee replacement History of appendectomy History of back surgery History of cardiac catheterization History of carpal tunnel release History of cataract surgery History of elbow surgery History of hip replacement (~2021) History of knee surgery History of left heart catheterization (08/20/20) History of lumbar surgery History of shoulder surgery History of transcatheter aortic valve replacement (TAVR) (11/26/20) Social History Smoking Status: Former smoker alcohol intake: never Vital Signs Vital Signs Vital Signs: 06/26/22 18:00 06/26/22 19:54 06/26/22 19:54 Temperature 98.4 F Temperature Source Temporal Pulse Rate 89 Respiratory Rate 15 Respiratory Effort Blood Pressure 128/75 H Blood Pressure Mean 92 Pulse Ox 98 96 Oxygen Delivery Method Room Air Room Air Room Air 06/26/22 19:55 06/26/22 20:44 Temperature Temperature Source Pulse Rate 77 Respiratory Rate 18 Respiratory Effort Normal Non-Labored Blood Pressure 137/81 H Blood Pressure Mean 99 Pulse Ox 99 Oxygen Delivery Method Room Air Weight Weight: 303 lb Body Mass Index (BMI) 46.0 Physical Exam Narrative Per the ED doctor, no redness, warmth, concerns with incision or sinus tract present about the shoulder. patient afebrile. Lab / Micro Data Result Diagrams: 06/26/22 18:45 06/26/22 18:45 Labs: Laboratory Results - last 24 hr 06/26/22 18:45: WBC 8.7, RBC 5.29, Hgb 15.9, Hct 49.2, MCV 93.0, MCH 30.1, MCHC 32.3, RDW Std Deviation 45.4 H, RDW Coeff of Shahzad 13.2, Plt Count 346, MPV 9.1, Immature Gran % (Auto) 0.500, Neut % (Auto) 73.8 H, Lymph % (Auto) 16.5 L, [place] % (Auto) 5.8, Eos % (Auto) 2.2, Baso % (Auto) 1.2 H, Absolute Neuts (auto) 6.4, Absolute Lymphs (auto) 1.43, Nucleated RBC % 0 06/26/22 18:45: Sodium 141, Potassium 4.5, Chloride 105, Carbon Dioxide 35.0 H, Anion Gap 1 L, BUN 14, Creatinine 0.95, Estim Creat Clear Calc 72.00, Est GFR (MDRD) Af Amer 101, Est GFR (MDRD) Non-Af 83, BUN/Creatinine Ratio 14.7, Glucose 99, Calcium 9.3, Troponin I High Sens 105 H 06/26/22 18:45: B-Natriuretic Peptide 22.5 06/26/22 20:53: Troponin I High Sens 101 H Radiology Impression Chest X-Ray 06/26/22 19:54 IMPRESSION: No acute cardiopulmonary disease. Electronically Signed: Josue Girard MD at 20:18 EST , Chest CTA 06/26/22 19:57 IMPRESSION: Study limited by suboptimal pulmonary artery opacification. No large or central pulmonary emboli. Smaller distal emboli cannot be reliably excluded. Postoperative changes left shoulder from recent shoulder replacement. Anterior fluid collection with gas bubbles measures up to 6 cm and an infected collection is a possibility. Electronically Signed: Scar Griggs MD at 20:58 EST , RTSA looks reduced properly. but difficult to completely visualize given non dedicated study. Assessment & Plan Assessment/Plan (1) Left shoulder pain: PLAN: 66 yr old man with post op fluid collection after left RTSA by Dr. Stanford, found incidentally, no signs or symptoms of infection. Could be seroma or hematoma, unlikely to be infected given normal WBC and physical exam per ED physician, but would recommend for the admitting or managing provider to make Dr. Jenkins aware BRAD with close FU. Nil acute management, and was not asked to come assess the patient urgently tonight. Dr. Hines in agreement with plan and no further questions.
[2022-06-26] MEDS: Nitroglycerin SL (ED/IMG/CATH) 0.4 MG TABLET SL ×3 (21:49→22:04)
--- NOTE | 2022-06-26 22:05 | EDS_ITS ---
HPI History of Present Illness Chief Complaint: Chest Pain Informant: patient Narrative Narrative: Patient is a 66-year-old male with history of TAVR hypertension, rheumatoid arthritis, obstructive sleep apnea compliant with his CPAP, GERD and hepatitis presenting with chest discomfort. Patient states he was helping his son work on some electrical project in the garage and just felt out of sorts. He found a old pulse oximeter and checked his heart rate in O2 saturation. His heart rate was 105 and his O2 saturation was in the 80s. On the way and he started to have soreness in his left chest and feel mildly short of breath. He states he had felt his pulse and his pulse in his neck felt weak. He has a home 1-lead EKG machine which he checked and it showed sinus tachycardia. Patient notes that he is 2 weeks postop from a reverse left shoulder replacement performed by Dr. Jenkins. A month prior to that he had hip replacement. He denies any known history of coronary artery disease. He has had intermittent discomfort in his left arm that shoots down. He is not sure if it associated with his chest discomfort or his recent surgery. He denies any increased pain at his surgical site. He denies any fever or chills. Denies any night sweats. No other complaints at this time. Notes that he has been more fatigued for the past week. [facility] Medical History (Updated 06/26/22 @ 23:[address] Yadi Hines, ) Arthritis Bradycardia with 41-50 beats per minute Cancer Cardiology follow-up encounter Colonic polyp Coronary artery disease COVID-19 virus detected (08/03/21) CPAP (continuous positive airway pressure) dependence Disc degeneration, lumbar Dyslipidemia Elevated troponin Essential (primary) hypertension Fatigue Former smoker Hay fever Hiatal hernia Hiatal hernia History of echocardiogram History of hepatitis C History of stress test Hypogonadism in male Hypoxemia Knee pain Leg cramps Lower GI bleed Morbid obesity with BMI of 45.0-49.9, adult Myasthenia gravis Nonobstructive atherosclerosis of coronary artery Nonrheumatic aortic (valve) stenosis Obstructive sleep apnea Osteoarthritis of left hip Prostate cancer Rheumatoid arthritis Shoulder pain Sleep apnea Wears glasses Home Medications furosemide 40 mg tablet 40 mg PO DAILY diuretic/water pill 02/14/15 [History Last Taken 06/11/22] niacin 500 mg tablet 500 mg PO QHS supplement 02/14/15 [History Last Taken 06/11/22] omega-3 acid ethyl esters 1 gram capsule 2 gm PO DAILY supplement 02/14/15 [History Last Taken 06/11/22] potassium chloride 20 mEq tablet,extended release(part/cryst) 20 meq PO DAILY supplement 02/14/15 [History Last Taken 06/11/22] testosterone cypionate 100 mg/mL intramuscular oil 1 ml IM Q14D hormone 02/14/15 [History Last Taken 06/11/22] folic acid 800 mcg tablet 0.8 mg PO DAILY supplement 03/09/17 [History Last Taken 06/11/22] lisdexamfetamine 50 mg capsule 60 mg PO DAILY ADHD 03/09/17 [History Last Taken 06/11/22] benazepril 40 mg tablet 40 mg PO DAILY blood pressure 07/12/19 [History Last Taken 06/12/22 04:45] ergocalciferol (vitamin D2) 1,250 mcg (50,000 unit) capsule 50,000 unit PO Q7D supplement 08/19/20 [History Last Taken 06/11/22] pregabalin 100 mg capsule 100 mg PO TID 01/25/21 [History Last Taken 06/11/22] sildenafil 100 mg tablet 100 mg PO DAILY PRN Erectile Dysfunction 11/04/21 [History Last Taken 06/11/22] acetaminophen 500 mg tablet 1,000 mg PO Q8 14 days #84 tabs 06/13/22 [Rx Last Taken Unknown] aspirin 81 mg tablet,delayed release 81 mg PO BID 14 days #28 tabs 06/13/22 [Rx Last Taken Unknown] famotidine 20 mg tablet 20 mg PO DAILY 14 days #14 tabs 06/13/22 [Rx Last Taken Unknown] meloxicam 7.5 mg tablet 7.5 mg PO BID 30 days #60 tabs 06/13/22 [Rx Last Taken Unknown] oxycodone 5 mg tablet 10 mg PO Q4H PRN PRN Pain Score 6-10 7 days #42 tabs 06/13/22 [Rx Last Taken Unknown] 5-HTP 18.8 mg-tyrosine 187.5 [id number]-chrom capsule 1 cap PO QHS 06/26/22 [History Last Taken Unknown] B12 06/26/22 [History Last Taken Unknown] calcium 600 mg capsule 1,200 mg PO DAILY 06/26/22 [History Last Taken Unknown] sennosides 8.6 mg-docusate sodium 50 mg tablet (Stool Softener-Stimulant Laxative) 2 tab PO QHS 06/26/22 [History Last Taken Unknown] Allergy/AdvReac Type Severity Reaction Status Date / Time hydromorphone HCl Allergy nausea, Verified 06/26/22 18:03 [From Dilaudid] confusion Surgical History (Updated 06/26/22 @ 23:[address] Yadi Hines, DO) H/O laminectomy H/O total knee replacement History of appendectomy History of back surgery History of cardiac catheterization History of carpal tunnel release History of cataract surgery History of elbow surgery History of hip replacement (~2021) History of knee surgery History of left heart catheterization (08/20/20) History of lumbar surgery History of shoulder surgery History of transcatheter aortic valve replacement (TAVR) (11/26/20) Social History Smoking Status: Former smoker alcohol intake: never ROS ROS ED Constitutional Constitutional ED: Denies chills, fever(s) or sweats Eyes Eyes: Denies blurry vision or change in vision ENT ENT ED: Denies rhinorrhea or sore throat Cardiovascular Cardiovascular: Reports as per HPI and chest pain; Denies palpitations Respiratory/Chest Respiratory/Chest: Reports dyspnea; Denies cough Gastrointestinal Gastrointestinal: Denies abdominal pain, nausea or vomiting Genitourinary Genitourinary ED: Denies dysuria Musculoskeletal Musculoskeletal: Reports other Details: Postoperative left shoulder. ; Denies arthralgias Integumentary Denies rash Neurologic Neurologic: Denies headache(s), paresthesias or weakness Psychiatric Psychiatric: Denies anxiety Hematologic/Lymphatic Hematologic/Lymphatic: Denies easy bleeding or easy bruising EXAM Physical Exam Const Vital Signs: 06/26/22 18:00 06/26/22 19:54 06/26/22 19:54 Temperature 98.4 F Temperature Source Temporal Pulse Rate 89 Respiratory Rate 15 Respiratory Effort Blood Pressure 128/75 H Blood Pressure Mean 92 Pulse Ox 98 96 Oxygen Delivery Method Room Air Room Air Room Air 06/26/22 19:55 06/26/22 20:44 06/26/22 21:49 Temperature Temperature Source Pulse Rate 77 75 Respiratory Rate 18 Respiratory Effort Normal Non-Labored Blood Pressure 137/81 H 137/81 H Blood Pressure Mean 99 Pulse Ox 99 Oxygen Delivery Method Room Air 06/26/22 21:59 06/26/22 22:02 06/26/22 22:04 Temperature Temperature Source Pulse Rate 81 94 88 Respiratory Rate 18 Respiratory Effort Blood Pressure 114/73 114/73 119/78 Blood Pressure Mean 86 Pulse Ox 99 Oxygen Delivery Method Room Air 06/26/22 22:09 Temperature 98.4 F Temperature Source Temporal Pulse Rate 87 Respiratory Rate 18 Respiratory Effort Blood Pressure 105/77 Blood Pressure Mean 86 Pulse Ox 99 Oxygen Delivery Method Room Air Positive well nourished and well developed General Appearance ED: well developed and NAD HEENT Reports moist mucous membranes normocephalic and atraumatic Eyes PERRL and EOMs intact bilaterally Neck supple and no JVD Chest Wall inspection of chest normal and palpation of chest normal Resp normal respiratory effort and clear to auscultation bilaterally Cardio regular rate, regular rhythm and no murmurs Peripheral Pulses: pulses 2+ throughout GI normal to inspection, nondistended, normoactive bowel sounds and soft to palpation Back/Spine no CVA tenderness Extremity Extremity Narrative: Healing surgical incision of the anterior left shoulder. Slightly decreased range of motion consistent with recent surgery. Neuro oriented x3 Neuro Narrative: No focal deficits appreciated Motor Exam: Negative for general weakness Psych mental status grossly normal Skin Skin Narrative: Healing surgical incision on the left anterior shoulder. No associated drainage, erythema or fluctuance. No secondary signs of infection. Heart Score History: Moderately Suspicious ECG: Normal Age: >/= 65 years Risk Factors: 1 or 2 Risk Factors Troponin: >/=3 x Normal Limit Score: 6 MDM MDM MDM Narrative Medical decision making narrative: Patient is evaluated for chest discomfort and pressure. On exam he appears nontoxic in no acute distress. He has significant risk factors for pulmonary emboli including recent surgery and CT of the chest is ordered. This is sub optimal for evaluation of the distal pulmonary arteries but overall normal. Incidentally there is a finding of anterior fluid collection with gas bubbles measuring up to 6 cm associated with his postoperative change in his left shoulder. Patient does not have physical exam features consistent with joint infection or surgical site infection. He is not have a fever, leukocytosis, night sweats or other systemic symptoms. He is not having worsening shoulder pain. Case is discussed with Dr. Bennett, Orthopedics on-call, who does not feel like there is any emergent orthopedic intervention at this time. This is relayed to hospitalist. Patient is found to have an elevated high-sensitivity troponin of 105. He does not have any acute EKG changes. On repeat it is 101. The exact cause of his bump in his troponin is not clear however patient be admitted for further cardiac evaluation. He is given some nitroglycerin because on further discussion he admits he is having some discomfort going into his left arm and not sure if this is referred cardiac pain versus pain associated with his recent surgery. Patient has minimal improvement of his pain with this. Lab work is otherwise largely unremarkable. He has a mildly elevated bicarb consistent with some chronic hypercapnic respiratory failure (this is consistent with patient's history of obstructive sleep apnea). Patient took 162 mg of aspirin prior to arrival so is not given any further aspirin in the ER. Patient and his are agreeable with admission for further cardiac evaluation. Lab Data Attestation: I reviewed the patient's lab results. Labs: Laboratory Results - last 24 hr 06/26/22 06/26/22 06/26/22 18:45 18:45 18:45 WBC 8.7 RBC 5.29 Hgb 15.9 Hct 49.2 MCV 93.0 MCH 30.1 MCHC 32.3 RDW Std Deviation 45.4 H RDW Coeff of Shahzad 13.2 Plt Count 346 MPV 9.1 Immature Gran % (Auto) 0.500 Neut % (Auto) 73.8 H Lymph % (Auto) 16.5 L Brooks % (Auto) 5.8 Eos % (Auto) 2.2 Baso % (Auto) 1.2 H Absolute Neuts (auto) 6.4 Absolute Lymphs (auto) 1.43 Nucleated RBC % 0 Sodium 141 Potassium 4.5 Chloride 105 Carbon Dioxide 35.0 H Anion Gap 1 L BUN 14 Creatinine 0.95 Estim Creat Clear Calc 72.00 Est GFR (MDRD) Af Amer 101 Est GFR (MDRD) Non-Af 83 BUN/Creatinine Ratio 14.7 Glucose 99 Calcium 9.3 Troponin I High Sens 105 H B-Natriuretic Peptide 22.5 06/26/22 20:53 WBC RBC Hgb Hct MCV MCH MCHC RDW Std Deviation RDW Coeff of Shahzad Plt Count MPV Immature Gran % (Auto) Neut % (Auto) Lymph % (Auto) Brooks % (Auto) Eos % (Auto) Baso % (Auto) Absolute Neuts (auto) Absolute Lymphs (auto) Nucleated RBC % Sodium Potassium Chloride Carbon Dioxide Anion Gap BUN Creatinine Estim Creat Clear Calc Est GFR (MDRD) Af Amer Est GFR (MDRD) Non-Af BUN/Creatinine Ratio Glucose Calcium Troponin I High Sens 101 H B-Natriuretic Peptide Radiography Chest X-Ray - ED: 1 View, Read by ED Physician, Read by Radiologist and No Acute Disease Diagnostic Testing: Clinical Impression(s) from Imaging Studies Chest X-Ray 06/26/22 19:54 IMPRESSION: No acute cardiopulmonary disease. Electronically Signed: Josue Girard MD at 20:18 EST , Chest CTA 06/26/22 19:57 IMPRESSION: Study limited by suboptimal pulmonary artery opacification. No large or central pulmonary emboli. Smaller distal emboli cannot be reliably excluded. Postoperative changes left shoulder from recent shoulder replacement. Anterior fluid collection with gas bubbles measures up to 6 cm and an infected collection is a possibility. Electronically Signed: Scar Griggs MD at 20:58 EST , Rhythm Strip Rhythm Strip: Sinus Rhythm Rate: 83 Ectopy: None EKG Initial EKG: Attestation: I personally reviewed and interpreted this EKG as follows: Interpretation: Sinus Rhythm Comments: Normal sinus rhythm at a rate of 83 bpm Normal axis Normal intervals Normal ST segments Compared to prior EKG on 08/19/2020 patient has shortening of his IA interval and no further sinus arrhythmia Discharge Plan Triage Chief Complaint: Chest Pain ED Provider: Yadi Hines Dx/Rx/DC Orders Clinical Impression: Chest pain, Essential (primary) hypertension, History of transcatheter aortic valve replacement (TAVR), Elevated troponin Primary Care Provider: Chun Schneider Disposition Disposition: Acute Care Hospital [facility] Discharge Date/Time: 06/26/22 23:37
--- NOTE | 2022-06-26 23:25 | HP.PCM.HOS_ITS ---
HPI - General General Date of Admission: 06/26/22 Date of Service: 06/26/22 Chief Complaint: Feel out of sorts HPI Narrative YOHANA MARTINEZ, is a 66 M with a history of TAVR in 2020, myasthenia gravis in 2007 in remission not on medication, and shoulder osteoarthritis status post left reverse shoulder arthroplasty by Dr. Jenkins 06/12 who presented to [facility] 06/26 and reported he feels out of sorts. At home he had c hecked his heart rate which was low 100s, O2 sat in 80's, and his diastolic blood pressure was persistently in the 90s so he decided to come to the ER for further evaluation. Does report that when he got in the car he did have a noticeable feeling in his chest, though unable to describe this further, that lasted until he got to the hospital. Has had some pain into his left arm but difficult to distinguish due to recent left arm surgery. Denies any changes in his breathing. In the ED he had troponin which was elevated at 105 which then down trended to 101. BNP was within normal limits, CTA without PE but did show fluid collection with gas bubbles measuring up to 6 cm at left shoulder. Ortho contacted by ED and given no signs or symptoms of infection no urgent intervention at this time as it is unlikely to be infected and more likely seroma or hematoma. Hospitalist contacted for admission due to his elevated troponin and complaints of chest discomfort. He reports feeling kind of backed over. He said that for the past couple days he has not felt right and that is why he took his heart rate and blood pressure. Only episode of chest pain was in the car on the way to the ED and he reported it was upper left chest pain, also had a ring of tingling around his mouth. Did not report any changes in his breathing to me but had endorsed some mild shortness of breath to ER pro vider.. Not having the discomfort in the upper left chest at this time. Denies any drainage, pain, warmth, concerns with his left shoulder. [facility] Medical History Arthritis Bradycardia with 41-50 beats per minute Cancer Cardiology follow-up encounter Colonic polyp Coronary artery disease COVID-19 virus detected (08/03/21) CPAP (continuous positive airway pressure) dependence Disc degeneration, lumbar Dyslipidemia Elevated troponin Essential (primary) hypertension Fatigue Former smoker Hay fever Hiatal hernia Hiatal hernia History of echocardiogram History of hepatitis C History of stress test Hypogonadism in male Hypoxemia Knee pain Leg cramps Lower GI bleed Morbid obesity with BMI of 45.0-49.9, adult Myasthenia gravis Nonobstructive atherosclerosis of coronary artery Nonrheumatic aortic (valve) stenosis Obstructive sleep apnea Osteoarthritis of left hip Prostate cancer Rheumatoid arthritis Shoulder pain Sleep apnea Wears glasses Home Medications furosemide 40 mg tablet 40 mg PO DAILY diuretic/water pill 02/14/15 [History Last Taken 06/11/22] niacin 500 mg tablet 500 mg PO QHS supplement 02/14/15 [History Last Taken 06/11/22] omega-3 acid ethyl esters 1 gram capsule 2 gm PO DAILY supplement 02/14/15 [History Last Taken 06/11/22] potassium chloride 20 mEq tablet,extended release(part/cryst) 20 meq PO DAILY supplement 02/14/15 [History Last Taken 06/11/22] testosterone cypionate 100 mg/mL intramuscular oil 1 ml IM Q14D hormone 02/14/15 [History Last Taken 06/11/22] folic acid 800 mcg tablet 0.8 mg PO DAILY supplement 03/09/17 [History Last Taken 06/11/22] lisdexamfetamine 50 mg capsule 60 mg PO DAILY ADHD 03/09/17 [History Last Taken 06/11/22] benazepril 40 mg tablet 40 mg PO DAILY blood pressure 07/12/19 [History Last Taken 06/12/22 04:45] ergocalciferol (vitamin D2) 1,250 mcg (50,000 unit) capsule 50,000 unit PO Q7D supplement 08/19/20 [History Last Taken 06/11/22] pregabalin 100 mg capsule 100 mg PO TID 01/25/21 [History Last Taken 06/11/22] sildenafil 100 mg tablet 100 mg PO DAILY PRN Erectile Dysfunction 11/04/21 [History Last Taken 06/11/22] acetaminophen 500 mg tablet 1,000 mg PO Q8 14 days #84 tabs 06/13/22 [Rx Last Taken Unknown] aspirin 81 mg tablet,delayed release 81 mg PO BID 14 days #28 tabs 06/13/22 [Rx Last Taken Unknown] famotidine 20 mg tablet 20 mg PO DAILY 14 days #14 tabs 06/13/22 [Rx Last Taken Unknown] meloxicam 7.5 mg tablet 7.5 mg PO BID 30 days #60 tabs 06/13/22 [Rx Last Taken Unknown] oxycodone 5 mg tablet 10 mg PO Q4H PRN PRN Pain Score 6-10 7 days #42 tabs 06/13/22 [Rx Last Taken Unknown] 5-HTP 18.8 mg-tyrosine 187.5 kc-vzripkyuz-bwzuofva-B6-C-chrom capsule 1 cap PO QHS 06/26/22 [History Last Taken Unknown] B12 PO/SL supplement 06/26/22 [History Last Taken 06/26/22] calcium 600 mg capsule 1,200 mg PO DAILY 06/26/22 [History Last Taken Unknown] sennosides 8.6 mg-docusate sodium 50 mg tablet (Stool Softener-Stimulant Laxative) 2 tab PO QHS 06/26/22 [History Last Taken Unknown] Allergy/AdvReac Type Severity Reaction Status Date / Time hydromorphone HCl Allergy nausea, Verified 06/26/22 18:03 [From Dilaudid] confusion Family History (Updated 06/27/22 @ 00:23 by Shonna Hartman) Mother Skin cancer Surgical History H/O laminectomy H/O total knee replacement History of appendectomy History of back surgery History of cardiac catheterization History of carpal tunnel release History of cataract surgery History of elbow surgery History of hip replacement (~2021) History of knee surgery History of left heart catheterization (08/20/20) History of lumbar surgery History of shoulder surgery History of transcatheter aortic valve replacement (TAVR) (11/26/20) Social History Smoking Status: Former smoker alcohol intake: never ROS Constitutional Constitutional: Denies change in weight, chills or fever(s) Eyes Eyes: Reports other Details: Reports sometimes over the past week feeling like he has the wrong glasses prescription ENT HEENT: Denies headache(s), nasal congestion or sore throat Cardiovascular Cardiovascular: Reports other Details: Did have upper left-sided chest pain into left arm prior to presentation Respiratory/Chest Respiratory/Chest: Reports other Details: Denies shortness of breath ; Denies cough or productive cough Gastrointestinal Gastrointestinal: Reports other Details: denies changes in bowel or bladder ; Denies abdominal pain Genitourinary Genitourinary: Reports other Details: denies changes in urination Musculoskeletal Musculoskeletal: Reports other Details: Left shoulder pain manageable Neurologic Neurologic: Denies dizziness, focal weakness, numbness or tingling Psychiatric Psychiatric: Denies anxiety Hematologic/Lymphatic Hematologic/Lymphatic: Denies easy bleeding Allergic/Immunologic Allergic/Immunologic: Reports other Details: denies rashes, denies drainage or concern at surgical site on left shoulder Vital Signs Vital Signs Vital Signs: 06/26/22 18:00 06/26/22 19:54 06/26/22 19:54 Temperature 98.4 F Temperature Source Temporal Pulse Rate 89 Respiratory Rate 15 Respiratory Effort Blood Pressure 128/75 H Blood Pressure Mean 92 Pulse Ox 98 96 Oxygen Delivery Method Room Air Room Air Room Air 06/26/22 19:55 06/26/22 20:44 06/26/22 21:49 Temperature Temperature Source Pulse Rate 77 75 Respiratory Rate 18 Respiratory Effort Normal Non-Labored Blood Pressure 137/81 H 137/81 H Blood Pressure Mean 99 Pulse Ox 99 Oxygen Delivery Method Room Air 06/26/22 21:59 06/26/22 22:02 06/26/22 22:04 Temperature Temperature Source Pulse Rate 81 94 88 Respiratory Rate 18 Respiratory Effort Blood Pressure 114/73 114/73 119/78 Blood Pressure Mean 86 Pulse Ox 99 Oxygen Delivery Method Room Air 06/26/22 22:09 Temperature 98.4 F Temperature Source Temporal Pulse Rate 87 Respiratory Rate 18 Respiratory Effort Blood Pressure 105/77 Blood Pressure Mean 86 Pulse Ox 99 Oxygen Delivery Method Room Air Weight Weight: 137.438 kg Body Mass Index (BMI) 46.0 Physical Exam Const alert and oriented x3 General Appearance: cooperative and comfortable HEENT normocephalic and head/scalp atraumatic Eyes EOMs intact bilaterally Neck supple Resp normal respiratory effort and clear to auscultation bilaterally Cardio regular rate and regular rhythm GI soft to palpation, non-tender and non-distended Extremity normal to inspection Skin Skin Narrative: Left shoulder incision without significant erythema or warmth, no dehiscence, no drainage, no pain Neuro moves all extremities Neuro Narrative: No overt focal neurological deficits appreciated Psych affect normal Results Lab / Micro Data Result Diagrams: 06/26/22 18:45 06/26/22 18:45 Labs: Laboratory Results - last 24 hr 06/26/22 18:45: WBC 8.7, RBC 5.29, Hgb 15.9, Hct 49.2, MCV 93.0, MCH 30.1, MCHC 32.3, RDW Std Deviation 45.4 H, RDW Coeff of Shahzad 13.2, Plt Count 346, MPV 9.1, Immature Gran % (Auto) 0.500, Neut % (Auto) 73.8 H, Lymph % (Auto) 16.5 L, [place] % (Auto) 5.8, Eos % (Auto) 2.2, Baso % (Auto) 1.2 H, Absolute Neuts (auto) 6.4, Absolute Lymphs (auto) 1.43, Nucleated RBC % 0 06/26/22 18:45: Sodium 141, Potassium 4.5, Chloride 105, Carbon Dioxide 35.0 H, Anion Gap 1 L, BUN 14, Creatinine 0.95, Estim Creat Clear Calc 72.00, Est GFR (MDRD) Af Amer 101, Est GFR (MDRD) Non-Af 83, BUN/Creatinine Ratio 14.7, Glucose 99, Calcium 9.3, Troponin I High Sens 105 H 06/26/22 18:45: B-Natriuretic Peptide 22.5 06/26/22 20:53: Troponin I High Sens 101 H Radiology Impression Chest X-Ray 06/26/22 19:54 IMPRESSION: No acute cardiopulmonary disease. Electronically Signed: Josue Girard MD at 20:18 EST , Chest CTA 06/26/22 19:57 IMPRESSION: Study limited by suboptimal pulmonary artery opacification. No large or central pulmonary emboli. Smaller distal emboli cannot be reliably excluded. Postoperative changes left shoulder from recent shoulder replacement. Anterior fluid collection with gas bubbles measures up to 6 cm and an infected collection is a possibility. Electronically Signed: Scar Griggs MD at 20:58 EST , Assessment & Plan Assessment/Plan (1) Elevated troponin: PLAN: Plan #Elevated troponin CAD vs valvular pathology vs hypoxia vs relative tachycardia (reports HR is usually jese at baseline and was low 100's) Had upper left-sided chest discomfort prior to presentation which was not associated with rest or exertion and resolved on its own and not presently having any pain Did have elevated troponin on admission of 105, down trended to 101 EKG unremarkable CTA no large PE though was not sufficient to show smaller distal emboli, unclear if he truly had hypoxia given it was only measured while using a home monitor reading and we have no documented hypoxia here HR has improved to 70's, also unclear etiology of his increased HR Can consider repeat eval for PE if no other etiology Will order echocardiogram, most recent echo did show EF of 65% with grade 1 diastolic dysfunction, moderate thickening of mitral valve, bioprosthetic aortic valve noted Had nonocclusive CAD on 08/20/2020 cath but up to 50% stenosis and given troponin and chest discomfort cardiology consulted Most recent cardiology visit 05/15/2022 Took 2 aspirin prior to arrival Cont asa, add statin Admit to telemetry Lipid panel #History of TAVR in 2020 Transfemoral transcatheter aortic valve replacement with a 23 CHEYANNE S3 valve implantation on 11/26/2020 Echo ordered #Left reverse shoulder arthroplasty Performed 08/13/[address] Jenkins- remains on asa 81mg BID though instructions were for 14 days so will convert to daily starting tomorrow CT demonstrated fluid and air, on-call ortho contacted by ED and no acute intervention advised Low suspicion for infection with normal white count, no drainage, erythema, pain Will monitor closely, ortho phonograph mechanic recommended notifying Dr. Jenkins and ensuring close follow up Given time and stability of patient will defer to AM unless clinical status changes #DVT ppx: Ish Mejia MD Charges/Coding Visit Charges Inpatient E&M: 63263 Init Hosp L2
--- NOTE | 2022-06-26 23:35 | ECHOCS_ITS ---
Reason For Study: Chest Pain Procedure This was a 2D Doppler, Color Flow transthoracic echocardiogram. Technically difficult study due to patients body habitus. Patient had difficulty laying in left lateral position due to recent left shoulder replacement. Contrast injection was used. Exam performed in department. Left Ventricle Normal LV size. Left ventricular systolic function is normal. No regional wall motion abnormalities noted. Right Ventricle Normal RV size. Normal systolic function. Atria Normal left atrium. Normal right atrium. Mitral Valve Bileaflet diffuse mitral valve thickening. Tricuspid Valve The tricuspid valve is not well visualized. Aortic Valve The aortic valve is not well visualized. Peak aortic valve gradient 53 mmHg. Mean aortic valve gradient 32 mmHg. Pulmonic Valve The pulmonic valve is not well visualized. Great Vessels Normal aortic root. Pericardium/Pleural No pericardial effusion. Medication Diluted definity 4ml given slow IV push to enhance endocardial definition. MMode/2D Measurements & Calculations LVIDd: 7.0 cm IVSd: 1.2 cm LVOT diam: 1.8 cm LVIDs: 3.8 cm LVPWd: 1.1 cm FS: 45.8 % LVOT area: 2.6 cm2 LA dimension: 5.6 cm LAV(MOD-bp): 96.9 ml LA A4 area: 28.1 cm2 LAV(MOD-bp) Indexed: 39.9 ml/m2 LAV(MOD-sp2): 91.9 ml LAV(MOD-sp4): 97.5 ml RA A4 area: 16.8 cm2 Time Measurements MV dec time: 0.42 sec Doppler Measurements & Calculations MV E max jimmy: 114.8 cm/sec Lat Peak E' Jimmy: 8.3 cm/sec Med Peak E' Jimmy: 7.9 cm/sec MV A max jimmy: 151.4 cm/sec E/E' lat: 13.8 E/E' med: 14.5 MV E/A: 0.76 MV V2 max: 188.1 cm/sec MV P1/2t max jimmy: 139.8 cm/sec Ao V2 max: 366.6 cm/sec MV max P.2 mmHg MV P1/2t: 128.2 msec Ao max P.8 mmHg MV V2 mean: 105.3 cm/sec MV dec slope: 319.3 cm/sec2 Ao V2 mean: 265.9 cm/sec MV mean P.1 mmHg Ao mean P.5 mmHg MV V2 VTI: 52.5 cm MVA(P1/2t): 1.7 cm2 Ao V2 VTI: 79.0 cm MVA(VTI): 1.5 cm2 AV (velocity ratio): 0.38 ANGELICA(I,D): 0.99 cm2 ANGELICA(V,D): 0.96 cm2 LV V1 max: 133.7 cm/sec SV(LVOT): 77.9 ml PA V2 max: 84.4 cm/sec LV V1 max P.2 mmHg LV V1 mean P.5 mmHg LV V1 mean: 98.5 cm/sec LV V1 VTI: 29.7 cm ECHO/Echo Complete W/ Contrast Interpretation Summary Normal LV size. Left ventricular systolic function is normal. Mean aortic valve gradient 32 mmHg. Bioprosthetic valve not very well visualized due to compromised position for ec ho evaluation Compared to the previous echocardiogram the gradients across the aortic valve a re increased. Ordering Physician: Clemencia Mejia Referring Physician: Chun Schneider Performed By: Dean Glynn RCS
[2022-06-27] VITALS (9 sets, daily range): BP systolic 112–129; BP diastolic 68–83; PULSE 67–84; RESP 12–18; TEMP 36.6–36.8; O2SAT 93–97
[2022-06-27] MEDS: Aspirin E.C. 81 MG Tablet PO ×2 (00:47→11:29)
[2022-06-27] MEDS: Pregabalin 50 MG Capsule 100 MG PO ×2 (00:47→14:12)
--- NOTE | 2022-06-27 01:07 | EKG12_ITS ---
Test Reason : CP ADMIT Blood Pressure : / mmHG Vent. Rate : 079 BPM Atrial Rate : 079 BPM P-R Int : 170 ms QRS Dur : 088 ms QT Int : 358 ms P-R-T Axes : 040 009 039 degrees QTc Int : 410 ms Normal sinus rhythm Possible Inferior infarct , age undetermined Abnormal ECG Confirmed by TIMBO CURTIS, EPIFANIO ([id number]), avid editor YDAY DURBIN ([id number]) on 07/10/2022 8:17:34 AM Referred By: MARK Confirmed By:EPIFANIO IZQUIERDO MD
[2022-06-27 01:53] LABS: Troponin-I HS 94 pg/mL (3.0-78.0)
[2022-06-27 07:13] LABS: International Normalized Ratio 1.1; Prothrombin Time (Protime)PT. 13.7 SECONDS (11.7-14.9)
--- NOTE | 2022-06-27 07:26 | PN.HOSP_ITS ---
Objective Data Objective Data Vital Signs: Vital Signs Temp Pulse Resp BP Pulse Ox O2 Del Method FiO2 97.9 F 72 16 129/83 H 93 CPAP 21 06/27/22 04:50 06/27/22 05:20 06/27/22 05:20 06/27/22 04:50 06/27/22 05:20 06/27/22 04:50 06/27/22 05:20 Oxygen Delivery Method CPAP Weight: 300 lb 0.786 oz Body Mass Index (BMI) 45.6 Intake & Output: Intake and Output for Last 24 Hours 06/25/22 06/26/22 06/27/22 23:59 23:59 23:59 Output Total 0 / 0 Balance 0 / 0 Lab / Micro Data Result Diagrams: 06/26/22 18:45 06/26/22 18:45 Labs: Laboratory Results - last 24 hr 06/26/22 18:45: WBC 8.7, RBC 5.29, Hgb 15.9, Hct 49.2, MCV 93.0, MCH 30.1, MCHC 32.3, RDW Std Deviation 45.4 H, RDW Coeff of Shahzad 13.2, Plt Count 346, MPV 9.1, Immature Gran % (Auto) 0.500, Neut % (Auto) 73.8 H, Lymph % (Auto) 16.5 L, [place] % (Auto) 5.8, Eos % (Auto) 2.2, Baso % (Auto) 1.2 H, Absolute Neuts (auto) 6.4, Absolute Lymphs (auto) 1.43, Nucleated RBC % 0 06/26/22 18:45: Sodium 141, Potassium 4.5, Chloride 105, Carbon Dioxide 35.0 H, Anion Gap 1 L, BUN 14, Creatinine 0.95, Estim Creat Clear Calc 72.00, Est GFR (MDRD) Af Amer 101, Est GFR (MDRD) Non-Af 83, BUN/Creatinine Ratio 14.7, Glucose 99, Calcium 9.3, Troponin I High Sens 105 H 06/26/22 18:45: B-Natriuretic Peptide 22.5 06/26/22 20:53: Troponin I High Sens 101 H 06/27/22 01:16: Troponin I High Sens 94 H 06/27/22 06:30: WBC Cancelled, Corrected WBC Cancelled, RBC Cancelled, Hgb Cancelled, Hct Cancelled, MCV Cancelled, MCH Cancelled, MCHC Cancelled, RDW Std Deviation Cancelled, RDW Coeff of Shahzad Cancelled, Plt Count Cancelled, MPV Cancelled, Immature Gran % (Auto) Cancelled, Neut % (Auto) Cancelled, Lymph % (Auto) Cancelled, [place] % (Auto) Cancelled, Eos % (Auto) Cancelled, Baso % (Auto) Cancelled, Absolute Neuts (auto) Cancelled, Absolute Lymphs (auto) Cancelled, Total Counted Cancelled, Neutrophils % (Manual) Cancelled, Band Neutrophils % Cancelled, Lymphocytes % (Manual) Cancelled, Monocytes % (Manual) Cancelled, Eosinophils % (Manual) Cancelled, Basophils % (Manual) Cancelled, Metamyelocytes % Cancelled, Myelocytes % Cancelled, Promyelocytes % Cancelled, Blast Cells % Cancelled, Plasma Cell % (Manual) Cancelled, Other Cells % Cancelled, Nucleated RBC % Cancelled, Nucleated RBCs/100 WBC Cancelled, Differential Comment Cancelled, Diff Path Review Cancelled, Hypersegmented Neuts Cancelled, Atypical Lymphocytes Cancelled, Reactive Lymphocytes Cancelled, Smudge Cells Cancelled, Toxic Granulation Cancelled, Toxic Vacuolation Cancelled, Dohle Bodies Cancelled, Kian Rods Cancelled, Platelet Estimate Cancelled, Plt Morphology Comment Cancelled, RBC Morphology Cancelled, Polychromasia Cancelled, Hypochromasia Cancelled, Poikilocytosis Cancelled, Basophilic Stippling Cancelled, Anisocytosis Cancelled, Microcytosis Cancelled, Macrocytosis Canc elled, Spherocytes Cancelled, Sickle Cells Cancelled, Target Cells Cancelled, Tear Drop Cells Cancelled, Ovalocytes Cancelled, Stomatocytes Cancelled, Mcdonough- [place] Bodies Cancelled, Natalee Cells Cancelled, Bite Cells Cancelled, Crenated Cell Cancelled, Acanthocytes (Spur) Cancelled, Rouleaux Cancelled, Schistocytes Cancelled, ESR Cancelled 06/27/22 06:30: PT 13.7, INR 1.1 Radiography Diagnostic Testing: Radiology Impression Chest X-Ray 06/26/22 19:54 IMPRESSION: No acute cardiopulmonary disease. Electronically Signed: Josue Girard MD at 20:18 [facility] [[email or web address]] , Chest CTA 06/26/22 19:57 IMPRESSION: Study limited by suboptimal pulmonary artery opacification. No large or central pulmonary emboli. Smaller distal emboli cannot be reliably excluded. Postoperative changes left shoulder from recent shoulder replacement. Anterior fluid collection with gas bubbles measures up to 6 cm and an infected collection is a possibility. Electronically Signed: Scar Griggs MD at 20:58 EST , Rhythm Strip Rhythm Strip: Sinus Rhythm Rate: 83 Ectopy: None
[2022-06-27 07:52] LABS: ALB/GLOB Ratio 0.9 RATIO (0.9-2.4); AST(SGOT) 25 U/L (15-37); Alanine Aminotransfer ALT/SGPT 27 U/L (16-61); Alkaline Phosphatase 100 U/L (45-117); Anion Gap 7 (5-15); BUN 13 mg/dL (7-18); BUN/Creat Ratio 15.2 RATIO (10-20); Calcium,Total 8.7 mg/dL (8.5-10.1); Chloride 106 mmol/L (98-107); Cholesterol 176 mg/dL (200); Creatinine, Serum 0.85 mg/dL (0.70-1.30); EST Glomerular Filtration Rate 95 mL/min (>60); Est Glom Filt Rate - Afr Amer 115 mL/min (>60); Estimated Creatinine Clearance 80.47 ml/min; Globulin 3.5 g/dL (2.2-4.2); Glucose 95 mg/dL (74-106); High Density Lipoprotein 27 mg/dL; Potassium 3.9 mmol/L (3.5-5.1); Protein, Total 6.5 g/dL (6.4-8.2); Sodium Level 138 mmol/L (136-145); Thyroid Stim Hormone (TSH) 2.28 uIU/mL (0.358-3.74); Triglycerides 94 mg/dL; Very Low Density Lipoprotein 19 mg/dL (5-40)
[2022-06-27 08:00] LABS: Absolute Lymphocyte Count 1.56 X10^3/uL (0.83-4.51); Absolute Neutrophil Count 4.4 X10^3/uL (2.0-7.7); Basophil# 0.08 X10^3/uL; Basophil% 1.2 % (0-1); Eosinophil# 0.24 X10^3/uL; Eosinophils% 3.6 % (0-5); Hematocrit 45.7 % (40-54); Hemoglobin 14.7 g/dL (13.0-16.5); Lymphocyte # 1.56 X10^3/ul (0.83-4.51); Lymphocyte % 23.1 % (19-41); Mean Corp Hgb Conc 32.2 g/dL (32-36); Mean Corpuscular Hgb 29.6 pg (27.0-32.0); Mean Platelet Vol. 9.3 fl (6.2-12.0); Monocyte# 0.48 X10^3/uL; Monocyte% 7.1 % (0-10); NRBC Flagged by Analyzer 0 % (0-5); Neutrophil # 4.37 X10^3/uL (2.7-7.7); Neutrophil % 64.7 % (47-70); Platelet Count 325 K/mm3 (150-450); RBC Distribution Width CV 13.6 % (11.6-14.6); RBC Distribution Width SD 46.3 fl (35.1-43.9); Red Blood Count 4.97 M/mm3 (4.6-6.2); White Blood Count 6.8 K/mm3 (4.4-11.0)
[2022-06-27 08:15] LABS: Erythrocyte Sedimentation Rate 13 mm/hr (0-20)
--- NOTE | 2022-06-27 08:44 | CON.PCM.CA_ITS ---
Assessment & Plan Assessment/Plan (1) Chest pain: PLAN: He does have chest discomfort which appears to be noncardiac and rather atypical. I would recommend that we obtain a pharmacologic myocardial perfusion stress test and depending on the findings further recommendations will be made. (2) Elevated troponin: PLAN: He does have minimally elevated troponin. My plan at this time would be to evaluate him with a pharmacologic myocardial perfusion stress test. Depending on the findings further recommendations will be made. (3) History of transcatheter aortic valve replacement (TAVR): PLAN: He is status post TAVR. I would recommend that we continue the current medical therapy and obtain an echocardiogram. (4) Nonobstructive atherosclerosis of coronary artery: PLAN: He has nonobstructive coronary disease documented by cardiac catheterization earlier this year. We will see how he does. (5) Essential (primary) hypertension: PLAN: His blood pressure appears to be under normal control. I would not recommend that we make any changes. Thank you for allowing me to participate in the care of your patient. Please don't hesitate to call if any issues arise. HPI Consult Data Date of Consult: 06/27/22 HPI Narrative HPI Narrative: YOHANA MARTINEZ, is a 66 M who presents to the emergency room after he complained of an unusual feeling in his chest and noting that his pulse oximetry was not registering right and his heart rate was elevated. He also had minimal chest discomfort. He had presented to [facility] in August of 2021 with dizziness.? He also had mild troponin elevation at that time.? He underwent a cardiac catheterization which demonstrated minimal coronary artery disease.? He was thought at that time to have aortic stenosis clinically as well as hyperten jacque.? Follow-up echocardiogram demonstrated severe aortic stenosis with a peak gradient of 70 mmHg and a mean gradient of 43 mmHg.? He was sent for and underwent TAVR with a 23 mm sapient S3 valve.? He was initially put on aspirin as well as clopidogrel.? A follow-up echocardiogram performed on January 02 demonstrated that the mean systolic gradient was 29 mmHg.? He has had another echocardiogram in February 2021 demonstrating a peak mean gradient of 36/20 mmHg.? Pt did undergo a hip replacement in mid February. End of March he fell and fractured his left shoulder.? This is not healing correctly and he successfully underwent surgery in June of this year. He was evaluated in the emergency room and appeared to be stable from the orthopedic standpoint. Electrocardiogram done demonstrated normal sinus rhythm with a right bundle branch block and no acute changes. Cardiac enzymes obtained were minimally abnormal. They however had a flat pattern with no significant rise and fall. From a cardiac standpoint, patient is doing well.? He does not have any chest discomfort/heaviness/tightness.? He does not have any worsening symptoms of shortness of breath.? He denies any PND.? He does not have any orthopnea.? He does not have any symptoms of congestive heart failure.? He does not have any palpitations that he is aware of.? He does not have any lightheadedness or dizziness.? He does not have any near-syncope or syncope.? He does not have any lower extremity edema.? He does not have any symptoms of claudication. [facility] Medical History Arthritis Bradycardia with 41-50 beats per minute Cancer Cardiology follow-up encounter Colonic polyp Coronary artery disease COVID-19 virus detected (08/03/21) CPAP (continuous positive airway pressure) dependence Disc degeneration, lumbar Dyslipidemia Elevated troponin Essential (primary) hypertension Fatigue Former smoker Hay fever Hiatal hernia Hiatal hernia History of echocardiogram History of hepatitis C History of stress test Hypogonadism in male Hypoxemia Knee pain Leg cramps Lower GI bleed Morbid obesity with BMI of 45.0-49.9, adult Myasthenia gravis Nonobstructive atherosclerosis of coronary artery Nonrheumatic aortic (valve) stenosis Obstructive sleep apnea Osteoarthritis of left hip Prostate cancer Rheumatoid arthritis Shoulder pain Sleep apnea Wears glasses Home Medications furosemide 40 mg tablet 40 mg PO DAILY diuretic/water pill 02/14/15 [History Last Taken 06/11/22] niacin 500 mg tablet 500 mg PO QHS supplement 02/14/15 [History Last Taken 06/11/22] omega-3 acid ethyl esters 1 gram capsule 2 gm PO DAILY supplement 02/14/15 [History Last Taken 06/11/22] potassium chloride 20 mEq tablet,extended release(part/cryst) 20 meq PO DAILY supplement 02/14/15 [History Last Taken 06/11/22] testosterone cypionate 100 mg/mL intramuscular oil 1 ml IM Q14D hormone 02/14/15 [History Last Taken 06/11/22] folic acid 800 mcg tablet 0.8 mg PO DAILY supplement 03/09/17 [History Last Taken 06/11/22] lisdexamfetamine 50 mg capsule 60 mg PO DAILY ADHD 03/09/17 [History Last Taken 06/11/22] benazepril 40 mg tablet 40 mg PO DAILY blood pressure 07/12/19 [History Last Taken 06/12/22 04:45] ergocalciferol (vitamin D2) 1,250 mcg (50,000 unit) capsule 50,000 unit PO Q7D supplement 08/19/20 [History Last Taken 06/11/22] pregabalin 100 mg capsule 100 mg PO TID 01/25/21 [History Last Taken 06/11/22] sildenafil 100 mg tablet 100 mg PO DAILY PRN Erectile Dysfunction 11/04/21 [ History Last Taken 06/11/22] acetaminophen 500 mg tablet 1,000 mg PO Q8 14 days #84 tabs 06/13/22 [Rx Last Taken Unknown] aspirin 81 mg tablet,delayed release 81 mg PO BID 14 days #28 tabs 06/13/22 [Rx Last Taken Unknown] famotidine 20 mg tablet 20 mg PO DAILY 14 days #14 tabs 06/13/22 [Rx Last Taken Unknown] meloxicam 7.5 mg tablet 7.5 mg PO BID 30 days #60 tabs 06/13/22 [Rx Last Taken Unknown] oxycodone 5 mg tablet 10 mg PO Q4H PRN PRN Pain Score 6-10 7 days #42 tabs 06/13/22 [Rx Last Taken Unknown] 5-HTP 18.8 mg-tyrosine 187.5 [id number]-chrom capsule 1 cap PO QHS 06/26/22 [History Last Taken Unknown] B12 PO/SL supplement 06/26/22 [History Last Taken 06/26/22] calcium 600 mg capsule 1,200 mg PO DAILY 06/26/22 [History Last Taken Unknown] sennosides 8.6 mg-docusate sodium 50 mg tablet (Stool Softener-Stimulant Laxative) 2 tab PO QHS 06/26/22 [History Last Taken Unknown] Allergy/AdvReac Type Severity Reaction Status Date / Time hydromorphone HCl Allergy nausea, Verified 06/26/22 18:03 [From Dilaudid] confusion Family History Mother Skin cancer Surgical History H/O laminectomy H/O total knee replacement History of appendectomy History of back surgery History of cardiac catheterization History of carpal tunnel release History of cataract surgery History of elbow surgery History of hip replacement (~2021) History of knee surgery History of left heart catheterization (08/20/20) History of lumbar surgery History of shoulder surgery History of transcatheter aortic valve replacement (TAVR) (11/26/20) Social History Smoking Status: Former smoker alcohol intake: never ROS Constitutional Constitutional: Denies fever(s) or weight loss Eyes Eyes: Reports systems reviewed and no addt'l complaints, except as documented ENT HEENT: Reports systems reviewed and no addt'l complaints, except as documented Cardiovascular Cardiovascular: Denies chest pain at rest, chest pain with activity, dyspnea at rest, dyspnea on exertion, edema, palpitations or paroxysmal nocturnal dyspnea Respiratory/Chest Respiratory/Chest: Denies dyspnea on exertion, productive cough, shortness of breath at rest or shortness of breath with exertion Gastrointestinal Gastrointestinal: Denies change in bowel habits, nausea, vomiting or weight changes Genitourinary Genitourinary: Denies difficulty urinating Musculoskeletal Musculoskeletal: Denies joint stiffness or muscle weakness Integumentary Integumentary: Denies lesions Neurologic Neurologic: Denies dizziness or syncope Psychiatric Psychiatric: Denies anxiety Endocrine Endocrinology: Denies excessive sweating or fatigue Hematologic/Lymphatic Hematologic/Lymphatic: Denies anemia Allergic/Immunologic Allergic/Immunologic: Denies seasonal rhinorrhea Physical Exam Const alert, oriented x3 and no apparent distress General Appearance: cooperative HEENT hearing grossly normal bilaterally Head and Scalp: atraumatic Eyes EOMs intact bilaterally Neck General: normal visual inspection Chest inspection of chest normal and palpation of chest normal Resp normal respiratory effort Auscultation: clear to auscultation bilaterally Cardio regular rate, regular rhythm, S1 normal heart sound and S2 normal heart sound Jugular Venous Distention: JVD GI normal to inspection, nondistended, normoactive bowel sounds Extremity normal capillary refill and no pedal edema Peripheral Pulses: Yes pulses 2+ throughout and femoral pulses present Skin no rashes or lesions noted Neuro oriented x3 and CN's II-XII intact bilaterally Psych Appearance: grossly normal and appropriate Risk Stratification Risk Stratification Applicable: Yes Age >/= 65: Yes >/= 3 CAD Risk Factors (HTN, HLD, DM, family hx of CAD, or current smoker): No Aspirin Use in the Past 7 Days: No Severe Angina (>/= episodes in 24 hours): No EKG ST Changes >/= 0.5mm: No Positive Cardiac Marker: Yes DULCE Risk Stratification Score: 2 DULCE % Risk: 8% Risk Objective Data Vital Signs: Vital Signs Temp Pulse Resp BP Pulse Ox O2 Del Method FiO2 97.9 F 71 16 129/83 H 93 CPAP 21 06/27/22 04:50 06/27/22 07:00 06/27/22 05:20 06/27/22 04:50 06/27/22 05:20 06/27/22 04:50 06/27/22 05:20 Oxygen Delivery Method CPAP Weight: 300 lb 0.786 oz Body Mass Index (BMI) 45.6 Intake & Output: Intake and Output for Last 24 Hours 06/25/22 06/26/22 06/27/22 23:59 23:59 23:59 Output Total 0 / 0 Balance 0 / 0 Lab / Micro Data Result Diagrams: 06/27/22 07:50 06/27/22 06:30 Labs: Laboratory Results - last 24 hr 06/26/22 18:45: WBC 8.7, RBC 5.29, Hgb 15.9, Hct 49.2, MCV 93.0, MCH 30.1, MCHC 32.3, RDW Std Deviation 45.4 H, RDW Coeff of Shahzad 13.2, Plt Count 346, MPV 9.1, Immature Gran % (Auto) 0.500, Neut % (Auto) 73.8 H, Lymph % (Auto) 16.5 L, [place] % (Auto) 5.8, Eos % (Auto) 2.2, Baso % (Auto) 1.2 H, Absolute Neuts (auto) 6.4, Absolute Lymphs (auto) 1.43, Nucleated RBC % 0 06/26/22 18:45: Sodium 141, Potassium 4.5, Chloride 105, Carbon Dioxide 35.0 H, Anion Gap 1 L, BUN 14, Creatinine 0.95, Estim Creat Clear Calc 72.00, Est GFR (MDRD) Af Amer 101, Est GFR (MDRD) Non-Af 83, BUN/Creatinine Ratio 14.7, Glucose 99, Calcium 9.3, Troponin I High Sens 105 H 06/26/22 18:45: B-Natriuretic Peptide 22.5 06/26/22 20:53: Troponin I High Sens 101 H 06/27/22 01:16: Troponin I High Sens 94 H 06/27/22 06:30: WBC Cancelled, Corrected WBC Cancelled, RBC Cancelled, Hgb Cancelled, Hct Cancelled, MCV Cancelled, MCH Cancelled, MCHC Cancelled, RDW Std Deviation Cancelled, RDW Coeff of Shahzad Cancelled, Plt Count Cancelled, MPV Cancelled, Immature Gran % (Auto) Cancelled, Neut % (Auto) Cancelled, Lymph % (Auto) Cancelled, [place] % (Auto) Cancelled, Eos % (Auto) Cancelled, Baso % (Auto) Cancelled, Absolute Neuts (auto) Cancelled, Absolute Lymphs (auto) Cancelled, Total Counted Cancelled, Neutrophils % (Manual) Cancelled, Band Neutrophils % Cancelled, Lymphocytes % (Manual) Cancelled, Monocytes % (Manual) Cancelled, Eosinophils % (Manual) Cancelled, Basophils % (Manual) Cancelled, Metamyelocytes % Cancelled, Myelocytes % Cancelled, Promyelocytes % Cancelled, Blast Cells % Cancelled, Plasma Cell % (Manual) Cancelled, Other Cells % Cancelled, Nucleated RBC % Cancelled, Nucleated RBCs/100 WBC Cancelled, Differential Comment Cancelled, Diff Path Review Cancelled, Hypersegmented Neuts Cancelled, Atypical Lymphocytes Cancelled, Reactive Lymphocytes Cancelled, Smudge Cells Cancelled, Toxic Granulation Cancelled, Toxic Vacuolation Cancelled, Dohle Bodies Canc elled, Kian Rods Cancelled, Platelet Estimate Cancelled, Plt Morphology Comment Cancelled, RBC Morphology Cancelled, Polychromasia Cancelled, Hypochromasia Cancelled, Poikilocytosis Cancelled, Basophilic Stippling Cancelled, Anisocytosis Cancelled, Microcytosis Cancelled, Macrocytosis Cancelled, Sph erocytes Cancelled, Sickle Cells Cancelled, Target Cells Cancelled, Tear Drop Cells Cancelled, Ovalocytes Cancelled, Stomatocytes Cancelled, Mcdonough-Carlisle Bodies Cancelled, Blenheim Cells Cancelled, Bite Cells Cancelled, Crenated Cell Cancelled, Acanthocytes (Spur) Cancelled, Rouleaux Cancelled, Schistocytes Cancelled, ESR Cancelled 06/27/22 06:30: PT 13.7, INR 1.1 06/27/22 06:30: Sodium 138, Potassium 3.9, Chloride 106, Carbon Dioxide 25.0, Anion Gap 7, BUN 13, Creatinine 0.85, Estim Creat Clear Calc 80.47, Est GFR (MDRD) Af Amer 115, Est GFR (MDRD) Non-Af 95, BUN/Creatinine Ratio 15.2, Glucose 95, Calcium 8.7, Magnesium 2.0, Total Bilirubin 0.60, AST 25, ALT 27, Alkaline Phosphatase 100, C-React Prot Ext Range 11.50 H, Total Protein 6.5, Albumin 3.0 L, Globulin 3.5, Albumin/Globulin Ratio 0.9, Triglycerides 94, Cholesterol 176, LDL Cholesterol 130, VLDL Cholesterol 19, HDL Cholesterol 27 L, TSH 2.28 06/27/22 07:50: WBC 6.8, RBC 4.97, Hgb 14.7, Hct 45.7, MCV 92.0, MCH 29.6, MCHC 32.2, RDW Std Deviation 46.3 H, RDW Coeff of Shahzad 13.6, Plt Count 325, MPV 9.3, Immature Gran % (Auto) 0.300, Neut % (Auto) 64.7, Lymph % (Auto) 23.1, [place] % (Auto) 7.1, Eos % (Auto) 3.6, Baso % (Auto) 1.2 H, Absolute Neuts (auto) 4.4, Absolute Lymphs (auto) 1.56, Nucleated RBC % 0, ESR 13 Rhythm Strip Rhythm Strip: Sinus Rhythm Rate: 83 Ectopy: None Cardiology Labs/Tests 06/26/22 18:45: WBC 8.7, RBC 5.29, Hgb 15.9, Hct 49.2, MCV 93.0, MCH 30.1, MCHC 32.3, Plt Count 346, MPV 9.1, Immature Gran % (Auto) 0.500, Neut % (Auto) 73.8 H , Lymph % (Auto) 16.5 L, [place] % (Auto) 5.8, Eos % (Auto) 2.2, Baso % (Auto) 1.2 H, Absolute Neuts (auto) 6.4, Nucleated RBC % 0 06/26/22 18:45: Sodium 141, Potassium 4.5, Chloride 105, Carbon Dioxide 35.0 H, Anion Gap 1 L, BUN 14, Creatinine 0.95, Est GFR (MDRD) Af Amer 101, Est GFR (MDRD) Non-Af 83, BUN/Creatinine Ratio 14.7, Glucose 99, Calcium 9.3 06/26/22 18:45: B-Natriuretic Peptide 22.5 06/27/22 06:30: WBC Cancelled, Corrected WBC Cancelled, RBC Cancelled, Hgb Cancelled, Hct Cancelled, MCV Cancelled, MCH Cancelled, MCHC Cancelled, Plt Count Cancelled, MPV Cancelled, Immature Gran % (Auto) Cancelled, Neut % (Auto) Cancelled, Lymph % (Auto) Cancelled, [place] % (Auto) Cancelled, Eos % (Auto) Cancelled, Baso % (Auto) Cancelled, Absolute Neuts (auto) Cancelled, Total Counted Cancelled, Neutrophils % (Manual) Cancelled, Band Neutrophils % Cancelled, Lymphocytes % (Manual) Cancelled, Monocytes % (Manual) Cancelled, Eosinophils % (Manual) Cancelled, Basophils % (Manual) Cancelled, Metamyelocytes % Cancelled, Myelocytes % Cancelled, Promyelocytes % Cancelled, Blast Cells % Cancelled, Plasma Cell % (Manual) Cancelled, Other Cells % Cancelled, Nucleated RBC % Cancelled 06/27/22 06:30: PT 13.7, INR 1.1 06/27/22 06:30: Sodium 138, Potassium 3.9, Chloride 106, Carbon Dioxide 25.0, Anion Gap 7, BUN 13, Creatinine 0.85, Est GFR (MDRD) Af Amer 115, Est GFR (MDRD) Non-Af 95, BUN/Creatinine Ratio 15.2, Glucose 95, Calcium 8.7, Magnesium 2.0, Total Bilirubin 0.60, Triglycerides 94, Cholesterol 176, LDL Cholesterol 130, VLDL Cholesterol 19, HDL Cholesterol 27 L 06/27/22 07:50: WBC 6.8, RBC 4.97, Hgb 14.7, Hct 45.7, MCV 92.0, MCH 29.6, MCHC 32.2, Plt Count 325, MPV 9.3, Immature Gran % (Auto) 0.300, Neut % (Auto) 64.7, Lymph % (Auto) 23.1, [place] % (Auto) 7.1, Eos % (Auto) 3.6, Baso % (Auto) 1.2 H, Absolute Neuts (auto) 4.4, Nucleated RBC % 0 Rhythm: EKG: ECHO: Stress Test: Cardiac Cath: PCI: CT Surgery: Holter monitor: EPS: PPM: CXR: Chest CT Scan: Radiography Diagnostic Testing: Radiology Impression Chest X-Ray 06/26/22 19:54 IMPRESSION: No acute cardiopulmonary disease. Electronically Signed: Josue Girard MD at 20:18 EST , Chest CTA 06/26/22 19:57 IMPRESSION: Study limited by suboptimal pulmonary artery opacification. No large or central pulmonary emboli. Smaller distal emboli cannot be reliably excluded. Postoperative changes left shoulder from recent shoulder replacement. Anterior fluid collection with gas bubbles measures up to 6 cm and an infected collection is a possibility. Electronically Signed: Scar Griggs MD at 20:58 EST ,
[2022-06-27] MEDS: FLU VACC QS2022-23(6MOS UP)/PF 60 MCG/0.5 ML SYRINGE IM (11:28)
[2022-06-27] MEDS: Famotidine 20 MG Tablet PO (11:29)
--- NOTE | 2022-06-27 13:49 | CASEMGMT ---
RN STAN [employer] PROJECT MANAGER CM to room to meet with patient for initial transition planning/care coordination assessment. BRITTANEY PIERCE introduced self and role at [facility]. Pt voices understanding and consents to assessment at this time. Pt resting in bed in no distress at this time. Pt is A/O at this time and answers all questions appropriately. Pt was just @ [facility] @ states no changes @ home or w/physicians. Care providers and pharmacy verified at this time. PCP: Wyatt Specialists: isaiah Jenkins; Varun, medical laboratory technicians Preferred Pharmacy: [facility] retail Insurance: [place] Prescription Benefit: yes Living Will/HPOA: none. Pt states he would like to complete them. Shasha GRIMALDO, made aware. Pt made aware if SW unable to meet w/him while @ [facility], this can be done as an OP as well. Pt given SW rac card w/updated contact # to call if chooses so as an OP. LNOK: , Amber. Sister, Taylor Living Arrangements: Patient lives , nephew, and niece in a split level home with 9 steps and railing between levels. Patient states he is independent at home. Transportation: self, DME/HHC: Patient states he has raised toilet, cane, walker, and cpap at home. Patient has had [facility] in the past. Pt denies having any concerns w/going home @ discharge and denies any discharge planning needs. Clifford SHRESTHA RN, CM
--- NOTE | 2022-06-27 13:59 | STRESSREP ---
Stress Test Report Pharmacologic myocardial perfusion stress test. 66-year-old man with a history of chest pain Resting EKG demonstrates sinus rhythm with a rate of 74 bpm . Resting blood pressure is 118/82 mmHg. 0.4 mg of regadenoson was infused per usual protocol followed by rapid intravenous saline flush injection. Continuous EKG monitoring was performed. The maximum heart rate was 102 bpm which was 67% of max impacted heart rate the maximum workload was 1 metabolic equivalent. At rest there were no ST or T wave changes noted to suggest ischemia and at peak infusion nonspecific ST changes were noted with did not meet the criteria for ischemia. Occasional premature ventricular complexes noted. No clinical angina is noted. The final blood pressure was 112/80 mmHg. Myocardial perfusion protocol. 15.0 mCi of technetium 99m sestamibi was injected at rest. 0.4 mg of regadenoson was infused per usual protocol. At peak infusion 45 point mCi of technetium 99m sestamibi was injected stress images were obtained stress and rest images were reconstructed and compared in the short axis vertical long and horizontal long axis. Gated images would not be obtained Perfusion SPECT analysis: Review of the stress images demonstrate normal uptake of tracer noted in all areas of the myocardium. The resting images similar demonstrated normal uptake of tracer noted in all areas of the myocardium. No areas of reversibility are noted to suggest ischemia and no previous infarct is noted. There was significant diaphragmatic and or GI attenuation artifact noted with a possible inferior defect. Conclusion: Normal pharmacologic myocardial perfusion stress test.
[2022-06-27] MEDS: Furosemide 40 MG Tablet PO (14:12)
--- NOTE | 2022-06-27 15:18 | PCM.DC.SUM ---
Providers Date of Admission: 06/26/22 Date of Discharge: 06/27/22 Primary Care Physician: Dr. Chun Schneider, Consultations 06/27/22 05:55 Consult: Cardiology Routine Consulting Provider: Fred Bond Reason for Consult: Chest pain, elevated trop EMERGENT Consult: No MD Notified: Yes Date Notified: 06/27/22 Time Notified: 06:37 Method of Notification: Text Reason For Visit: ELEVATED TROPONIN Diagnosis Discharge Diagnosis (1) Chest pain: Status: Acute Code(s): R07.9 - Chest pain, unspecified (2) Elevated troponin: Status: Acute Code(s): R77.8 - Other specified abnormalities of plasma proteins (3) History of transcatheter aortic valve replacement (TAVR): Status: Chronic Code(s): Z95.2 - Presence of prosthetic heart valve (4) Nonobstructive atherosclerosis of coronary artery: Status: Chronic Code(s): I25.10 - Atherosclerotic heart disease of [place] coronary artery without angina pectoris (5) Essential (primary) hypertension: Status: Chronic Code(s): I10 - Essential (primary) hypertension Medications at Discharge Home Medications furosemide 40 mg tablet 40 mg PO DAILY diuretic/water pill 02/14/15 niacin 500 mg tablet 500 mg PO QHS supplement 02/14/15 omega-3 acid ethyl esters 1 gram capsule 2 gm PO DAILY supplement 02/14/15 potassium chloride 20 mEq tablet,extended release(part/cryst) 20 meq PO DAILY supplement 02/14/15 testosterone cypionate 100 mg/mL intramuscular oil 1 ml IM Q14D hormone 02/14/15 folic acid 800 mcg tablet 0.8 mg PO DAILY supplement 03/09/17 lisdexamfetamine 50 mg capsule 60 mg PO DAILY ADHD 03/09/17 benazepril 40 mg tablet 40 mg PO DAILY blood pressure 07/12/19 ergocalciferol (vitamin D2) 1,250 mcg (50,000 unit) capsule 50,000 unit PO Q7D supplement 08/19/20 pregabalin 100 mg capsule 100 mg PO TID 01/25/21 sildenafil 100 mg tablet 100 mg PO DAILY PRN Erectile Dysfunction 11/04/21 aspirin 81 mg tablet,delayed release 81 mg PO BID 14 days #28 tabs 06/13/22 famotidine 20 mg tablet 20 mg PO DAILY 14 days #14 tabs 06/13/22 oxycodone 5 mg tablet 10 mg PO Q4H PRN PRN Pain Score 6-10 7 days #42 tabs 06/13/22 5-HTP 18.8 mg-tyrosine 187.5 [id number]-[id number]-B6-C-chrom capsule 1 cap PO QHS 06/26/22 B12 PO/SL supplement 06/26/22 calcium 600 mg capsule 1,200 mg PO DAILY 06/26/22 sennosides 8.6 mg-docusate sodium 50 mg tablet (Stool Softener-Stimulant Laxative) 2 tab PO QHS 06/26/22 acetaminophen 500 mg tablet 1,000 mg PO Q8 pain 06/27/22 meloxicam 7.5 mg tablet 7.5 mg PO BID osteoarthritis 06/27/22 Hospital Course Operations None Procedures None Summary of Care Provided Minutes Spent on Discharge: 45 Hospital Course: Patient is a 66 y/o male with a PMH as outlined who was admitted via the ED on 06/26/2022 because he was feeling unwell. He said he was feeling out of sorts. He checked his HR which was in the low 100s; he was saturating in the 80s so he decided to come in to [facility] ED. He subsequently started having chest pain. In the ED, troponin was elevated at 105, but trended down to 101; BNp was WNL anad CTA showed no evidence of PE, but showed fluid collection with glass bubbles in the left shoulder. Orthopedics was consulted, but recommended no urgent intervention. He was admitted to be managed for hest pain to rule out ACS. Cardiology was consulted. EKG showed no acute ST changes. Cardiology was consulted. He had a stress test which showed no evidence of ischemia. 2D echo showed normal LV size and systolic function, with a bioprosthetic aortic valve which wasnt well visualised. He remained stable and was discharged home on 06/27/2022. He is to follow up with his PCP within 1-2 weeks. Patient seen and examined prior to discharge. He had no active complaints and had an uneventful night. Review of systems is otherwise negative. Labs and vitals reviewed. Home meds reviewed and reconciled. Physical Exam Const alert, oriented x3 and no apparent distress General Appearance: cooperative, comfortable and well kempt Orientation / Consciousness: awake Exam Limitations: no limitations HEENT normocephalic, head/scalp atraumatic, hearing grossly normal bilaterally and moist oral mucous membranes Mouth: oral and palatal mucosa normal Eyes PERRL, EOMs intact bilaterally and conjunctivae normal Neck no lymphadenopathy, supple and no JVD Resp normal respiratory effort, no retractions, no use of accessory muscles and clear to auscultation bilaterally Cardio regular rate, regular rhythm, S1 normal heart sound, S2 normal heart sound and no murmurs GI normal to inspection, nondistended, normoactive bowel sounds, soft to palpation, non-tender and non-distended Extremity Extremity Narrative: well healed incision on left anterior shoulder. Skin Skin Narrative: well healed incision on left shoulder Neuro oriented x3, CN's II-XII intact bilaterally, moves all extremities and no focal motor deficits Sensorium / Orientation: awake Motor Exam: strength 5/5 throughout Psych affect normal Weight / BMI Weight Weight: 299 lb 13.259 oz Body Mass Index (BMI) 45.6 ABG / Lab / Microbiology Data Result Diagrams: 06/27/22 07:50 06/27/22 06:30 Laboratory: Laboratory Results - last 24 hr 06/26/22 18:45: WBC 8.7, RBC 5.29, Hgb 15.9, Hct 49.2, MCV 93.0, MCH 30.1, MCHC 32.3, RDW Std Deviation 45.4 H, RDW Coeff of Shahzad 13.2, Plt Count 346, MPV 9.1, Immature Gran % (Auto) 0.500, Neut % (Auto) 73.8 H, Lymph % (Auto) 16.5 L, [place] % (Auto) 5.8, Eos % (Auto) 2.2, Baso % (Auto) 1.2 H, Absolute Neuts (auto) 6.4, Absolute Lymphs (auto) 1.43, Nucleated RBC % 0 06/26/22 18:45: Sodium 141, Potassium 4.5, Chloride 105, Carbon Dioxide 35.0 H, Anion Gap 1 L, BUN 14, Creatinine 0.95, Estim Creat Clear Calc 72.00, Est GFR (MDRD) Af Amer 101, Est GFR (MDRD) Non-Af 83, BUN/Creatinine Ratio 14.7, Glucose 99, Calcium 9.3, Troponin I High Sens 105 H 06/26/22 18:45: B-Natriuretic Peptide 22.5 06/26/22 20:53: Troponin I High Sens 101 H 06/27/22 01:16: Troponin I High Sens 94 H 06/27/22 06:30: WBC Cancelled, Corrected WBC Cancelled, RBC Cancelled, Hgb Cancelled, Hct Cancelled, MCV Cancelled, MCH Cancelled, MCHC Cancelled, RDW Std Deviation Cancelled, RDW Coeff of Shahzad Cancelled, Plt Count Cancelled, MPV Cancelled, Immature Gran % (Auto) Cancelled, Neut % (Auto) Cancelled, Lymph % (Auto) Cancelled, [place] % (Auto) Cancelled, Eos % (Auto) Cancelled, Baso % (Auto) Cancelled, Absolute Neuts (auto) Cancelled, Absolute Lymphs (auto) Cancelled, Total Counted Cancelled, Neutrophils % (Manual) Cancelled, Band Neutrophils % Cancelled, Lymphocytes % (Manual) Cancelled, Monocytes % (Manual) Cancelled, Eosinophils % (Manual) Cancelled, Basophils % (Manual) Cancelled, Metamyelocytes % Cancelled, Myelocytes % Cancelled, Promyelocytes % Cancelled, Blast Cells % Cancelled, Plasma Cell % (Manual) Cancelled, Other Cells % Cancelled, Nucleated RBC % Cancelled, Nucleated RBCs/100 WBC Cancelled, Differential Comment Cancelled, Diff Path Review Cancelled, Hypersegmented Neuts Cancelled, Atypical Lymphocytes Cancelled, Reactive Lymphocytes Cancelled, Smudge Cells Cancelled, Toxic Granulation Cancelled, Toxic Vacuolation Cancelled, Dohle Bodies Cancelled, Kian Rods Cancelled, Platelet Estimate Cancelled, Plt Morphology Comment Cancelled, RBC Morphology Cancelled, Polychromasia Cancelled, Hypochromasia Cancelled, Poikilocytosis Cancelled, Basophilic Stippling Cancelled, Anisocytosis Cancelled, Microcytosis Cancelled, Macrocytosis Cancelled, Spherocytes Cancelled, Sickle Cells Cancelled, Target Cells Cancelled, Tear Drop Cells Cancelled, Ovalocytes Cancelled, Stomatocytes Cancelled, [place] Bodies Cancelled, [place] Cells Cancelled, Bite Cells Cancelled, Crenated Cell Cancelled, Acanthocytes (Spur) Cancelled, Rouleaux Cancelled, Schistocytes Cancelled, ESR Cancelled 06/27/22 06:30: PT 13.7, INR 1.1 06/27/22 06:30: Sodium 138, Potassium 3.9, Chloride 106, Carbon Dioxide 25.0, Anion Gap 7, BUN 13, Creatinine 0.85, Estim Creat Clear Calc 80.47, Est GFR (MDRD) Af Amer 115, Est GFR (MDRD) Non-Af 95, BUN/Creatinine Ratio 15.2, Glucose 95, Calcium 8.7, Magnesium 2.0, Total Bilirubin 0.60, AST 25, ALT 27, Alkaline Phosphatase 100, C-React Prot Ext Range 11.50 H, Total Protein 6.5, Albumin 3.0 L, Globulin 3.5, Albumin/Globulin Ratio 0.9, Triglycerides 94, Cholesterol 176, LDL Cholesterol 130, VLDL Cholesterol 19, HDL Cholesterol 27 L, TSH 2.28 06/27/22 07:50: WBC 6.8, RBC 4.97, Hgb 14.7, Hct 45.7, MCV 92.0, MCH 29.6, MCHC 32.2, RDW Std Deviation 46.3 H, RDW Coeff of Shahzad 13.6, Plt Count 325, MPV 9.3, Immature Gran % (Auto) 0.300, Neut % (Auto) 64.7, Lymph % (Auto) 23.1, [place] % (Auto) 7.1, Eos % (Auto) 3.6, Baso % (Auto) 1.2 H, Absolute Neuts (auto) 4.4, Absolute Lymphs (auto) 1.56, Nucleated RBC % 0, ESR 13 Radiography Diagnostic Testing: Radiology Impression Chest X-Ray 06/26/22 19:54 IMPRESSION: No acute cardiopulmonary disease. Electronically Signed: Josue Girard MD at 20:18 EST , Chest CTA 06/26/22 19:57 IMPRESSION: Study limited by suboptimal pulmonary artery opacification. No large or central pulmonary emboli. Smaller distal emboli cannot be reliably excluded. Postoperative changes left shoulder from recent shoulder replacement. Anterior fluid collection with gas bubbles measures up to 6 cm and an infected collection is a possibility. Electronically Signed: Scar Griggs MD at 20:58 EST Reading Location ID and State: [facility] / [place] Tel , Service support , Echocardiogram 06/26/22 23:35 Interpretation Summary Normal LV size. Left ventricular systolic function is normal. Mean aortic valve gradient 32 mmHg. Bioprosthetic valve not very well visualized due to compromised position for echo evaluation Compared to the previous echocardiogram the gradients across the aortic valve are increased. Ordering Physician: Clemencia Mejia Referring Physician: Chun Schneider Performed By: Dean Glynn RCS D/C Instructions Discharge Diet: Low fat / Low cholesterol Discharge Activity: Return to Normal Activity Call your doctor if you observe: Fever of 101 or Higher, Shortness of breath, Dizziness, Swelling in the ankles, Chest pain and Increased palpitations (irregular heartbeat) Meaningful Use Info Meaningful Use Diagnoses (Choose all that apply): None applicable Discharge Plan Admission Admit Date/Time: 06/26/22 23:22 Primary Reason for Your Visit: chest pain Attending Provider: Vane Collins Primary Care Provider: Chun Schneider Consulting Providers: Clemencia Mejia ; Fred Bond Instructions Patient Instructions: Your Heart Is at Risk, ED Chest Pain, Noncardiac, ED Chest Pain, Uncertain Cause Discharge Orders/Prescriptions Prescriptions: Continued pregabalin 100 mg capsule 100 mg PO TID Label Comments: TAKE 1 CAPSULE BY MOUTH 3 TIMES A DAY sildenafil 100 mg tablet 100 mg PO DAILY PRN (Reason: Erectile Dysfunction) furosemide 40 MG tablet 40 mg PO DAILY testosterone cypionate 100 MG/ML oil 1 ml IM Q14D potassium chloride 20 MEQ tablet 20 meq PO DAILY omega-3 acid ethyl esters 1 GM capsule 2 gm PO DAILY niacin 500 MG tablet 500 mg PO QHS folic acid 0.8 MG tablet 0.8 mg PO DAILY lisdexamfetamine 50 MG capsule 60 mg PO DAILY Label Comments: TAKE ONE CAPSULE BY MOUTH EVERY DAY benazepril 40 MG tablet 40 mg PO DAILY ergocalciferol (vitamin D2) 50,000 UNIT capsule 50,000 unit PO Q7D Rx Instructions: on sundays meloxicam 7.5 mg Tablet 7.5 mg PO BID 30 Days Qty: 60 0RF famotidine 20 mg Tablet 20 mg PO DAILY 14 Days Qty: 14 0RF aspirin 81 mg Tablet,Delayed Release (Dr/Ec) 81 mg PO BID 14 Days Qty: 28 0RF oxycodone 5 mg Tablet 10 mg PO Q4H PRN PRN (Reason: Pain Score 6-10) 7 Days Qty: 42 0RF acetaminophen 500 mg Tablet 1,000 mg PO Q8 14 Days Qty: 84 0RF calcium 600 mg Capsule 1,200 mg PO DAILY sennosides-docusate sodium [Stool Softener-Stimulant Laxat] 8.6-50 mg tablet 2 tab PO QHS [id number]-[id number]-mntz-helvh-N6-L-chr 18.8-187.5-93.8 mg Capsule 1 cap PO QHS B12 PO/SL Label Comments: takes 1 dropper full of B12 by mouth with drink 2x/day for supplement Referrals / Follow Up: Chun Schneider DO [Primary Care Provider] - Within 2 Weeks Disposition Disposition (needs filled in before D/C Order can be placed): Home, Self Care Charges/Coding Visit Charges OBSV E&M: 39116 Observation care discharge
--- NOTE | 2022-06-27 15:21 | DCINST_ITS ---
Discharge Instructions Diet Discharge Diet: Low fat / Low cholesterol Activity Discharge Activity: Return to Normal Activity Weight Bearing Status: Weight bearing as tolerated Dressing / Incision Call your doctor if you observe: Fever of 101 or Higher, Shortness of breath, Dizziness, Swelling in the ankles, Chest pain and Increased palpitations (irregular heartbeat) Follow Up Care Test Results: Test results from this visit will be discussed in further detail at your follow- up appointment, if applicable. Discharge Plan Admission Admit Date/Time: 06/26/22 23:22 Primary Reason for Your Visit: chest pain Attending Provider: Vane Collins Primary Care Provider: Chun Schneider Consulting Providers: Clemencia Mejia ; Fred Bond Instructions Patient Instructions: Your Heart Is at Risk, ED Chest Pain, Noncardiac, ED Chest Pain, Uncertain Cause Discharge Orders/Prescriptions Prescriptions: Continued pregabalin 100 mg capsule 100 mg PO TID Label Comments: TAKE 1 CAPSULE BY MOUTH 3 TIMES A DAY sildenafil 100 mg tablet 100 mg PO DAILY PRN (Reason: Erectile Dysfunction) furosemide 40 MG tablet 40 mg PO DAILY testosterone cypionate 100 MG/ML oil 1 ml IM Q14D potassium chloride 20 MEQ tablet 20 meq PO DAILY omega-3 acid ethyl esters 1 GM capsule 2 gm PO DAILY niacin 500 MG tablet 500 mg PO QHS folic acid 0.8 MG tablet 0.8 mg PO DAILY lisdexamfetamine 50 MG capsule 60 mg PO DAILY Label Comments: TAKE ONE CAPSULE BY MOUTH EVERY DAY benazepril 40 MG tablet 40 mg PO DAILY ergocalciferol (vitamin D2) 50,000 UNIT capsule 50,000 unit PO Q7D Rx Instructions: on sundays meloxicam 7.5 mg Tablet 7.5 mg PO BID 30 Days Qty: 60 0RF famotidine 20 mg Tablet 20 mg PO DAILY 14 Days Qty: 14 0RF aspirin 81 mg Tablet,Delayed Release (Dr/Ec) 81 mg PO BID 14 Days Qty: 28 0RF oxycodone 5 mg Tablet 10 mg PO Q4H PRN PRN (Reason: Pain Score 6-10) 7 Days Qty: 42 0RF acetaminophen 500 mg Tablet 1,000 mg PO Q8 14 Days Qty: 84 0RF calcium 600 mg Capsule 1,200 mg PO DAILY sennosides-docusate sodium [Stool Softener-Stimulant Laxat] 8.6-50 mg tablet 2 tab PO QHS [id number]-[id number]-uctwh-E7-B-chr 18.8-187.5-93.8 mg Capsule 1 cap PO QHS B12 PO/SL Label Comments: takes 1 dropper full of B12 by mouth with drink 2x/day for supplement Referrals / Follow Up: Chun Schneider DO [Primary Care Provider] - Within 2 Weeks Disposition Disposition (needs filled in before D/C Order can be placed): Home, Self Care
== END 2022-06-27 17:26 | disposition home or self-care (01) | DRG 313 ==
LOC: ED 19:10 → PCU 23:38
PROVIDERS: Admitting Provider Internal Medicine; Emergency Provider Emergency Medicine; PCP Family Medicine; Visit Provider Student in an Organized Health Care Education/Training Program
DX: R07.9 Chest pain, unspecified (principal); E78.5 Hyperlipidemia, unspecified; M25.512 Pain in left shoulder; K21.9 Gastro-esophageal reflux disease without esophagitis; I25.10 Atherosclerotic heart disease of native coronary artery without angina pectoris; I10 Essential (primary) hypertension; I35.0 Nonrheumatic aortic (valve) stenosis; I45.10 Unspecified right bundle-branch block; Z96.649 Presence of unspecified artificial hip joint; Z86.16 Personal history of COVID-19; Z87.891 Personal history of nicotine dependence; R00.0 Tachycardia, unspecified; R77.8 Other specified abnormalities of plasma proteins; Z79.82 Long term (current) use of aspirin; Z79.891 Long term (current) use of opiate analgesic; Z95.2 Presence of prosthetic heart valve; Z99.89 Dependence on other enabling machines and devices
CPT/HCPCS: 36415; 71045; 71275; 78452; 80048; 80053; 80061; 83735; 83880; 84443; 84484; 85025; 85610; 85652; 86140; 93005; 93017; 93306; 94002; 99285; A9500; Q9957; Q9967; 90686; A4216; C8929; J2785

== ENCOUNTER 2022-12-09 07:04 | Day surgery (SDC) | payer BC, SELFPAY ==
[2022-12-09 07:27] VITALS: BP 119/71; PULSE 88; RESP 18; TEMP 37.4; O2SAT 95; BMI 46.9
[2022-12-09] MEDS: Lactated Ringers 1,000 ML 15 ML IV (07:39)
--- NOTE | 2022-12-09 07:40 | H&P.OPEN ---
HPI - General HPI Narrative YOHANA MARTINEZ, is a 67 M who presents for surveillance colonoscopy. Patient's colonoscopy was 5 years ago and he had a polyp removed. He denies abdominal pain or blood in the stool. He does report he had bleeding with his last colonoscopy. [facility] Medical History (Updated 12/09/22 @ 07:[address] Tay Escoto MD) Arthritis Back pain Blepharitis of left lower eyelid Bradycardia with 41-50 beats per minute Cancer Cardiology follow-up encounter Chalazion left lower eyelid Colonic polyp Coronary artery disease COVID-19 virus detected (08/03/21) CPAP (continuous positive airway pressure) dependence Disc degeneration, lumbar Dyslipidemia Elevated troponin Elevated troponin Essential (primary) hypertension Fatigue Former smoker Gastric reflux Hay fever Hiatal hernia Hiatal hernia High cholesterol History of echocardiogram History of hepatitis C History of hiatal hernia History of stress test History of transesophageal echocardiography (CHIKA) Hypertension Hypogonadism in male Hypoxemia Knee pain Left shoulder pain Leg cramps Lower GI bleed Morbid obesity with BMI of 45.0-49.9, adult Myasthenia gravis Nonobstructive atherosclerosis of coronary artery Nonrheumatic aortic (valve) stenosis Obstructive sleep apnea Osteoarthritis of left hip Prostate cancer Rheumatoid arthritis Shoulder pain Sleep apnea Wears glasses Home Medications furosemide 40 mg tablet 40 mg PO DAILY diuretic/water pill 02/14/15 [History Last Taken 06/11/22] niacin 500 mg tablet 500 mg PO QHS supplement 02/14/15 [History Last Taken 06/11/22] omega-3 acid ethyl esters 1 gram capsule 2 gm PO DAILY supplement 02/14/15 [History Last Taken 12/02/22] potassium chloride 20 mEq tablet,extended release(part/cryst) 20 meq PO DAILY supplement 02/14/15 [History Last Taken 06/11/22] testosterone cypionate 100 mg/mL intramuscular oil 1 ml IM Q14D hormone 02/14/15 [History Last Taken 06/11/22] folic acid 800 mcg tablet 0.8 mg PO DAILY supplement 03/09/17 [History Last Taken 06/11/22] lisdexamfetamine 50 mg capsule 60 mg PO DAILY ADHD 03/09/17 [History Last Taken 06/11/22] benazepril 40 mg tablet 40 mg PO DAILY blood pressure 07/12/19 [History Last Taken 06/12/22 04:45] ergocalciferol (vitamin D2) 1,250 mcg (50,000 unit) capsule 50,000 unit PO Q7D supplement 08/19/20 [History Last Taken 06/11/22] pregabalin 100 mg capsule 100 mg PO TID pain 01/25/21 [History Last Taken 06/11/22] sildenafil 100 mg tablet 100 mg PO DAILY PRN Erectile Dysfunction 11/04/21 [History Last Taken 06/11/22] 5-HTP 18.8 mg-tyrosine 187.5 [id number]-rqsywhjpq-vxzneuqp-B6-C-chrom capsule 1 cap PO QHS supplement 06/26/22 [History Last Taken Unknown] calcium 600 mg capsule 1,200 mg PO DAILY supplement 06/26/22 [History Last Taken Unknown] aspirin 81 mg tablet,delayed release 81 mg PO DAILY 12/03/22 [History Last Taken 12/02/22] vitamin R94-xsqyoaq B1 5.5 mg-12.5 mcg/5 mL oral liquid 1 ml PO TID 12/03/22 [History Last Taken Unknown] acetaminophen 500 mg tablet 1,000 mg PO Q8 PRN pain 12/04/22 [History Last Taken Unknown] Allergy/AdvReac Type Severity Reaction Status Date / Time hydromorphone HCl Allergy nausea, Verified 12/04/22 08:19 [From Dilaudid] confusion Family History Mother Skin cancer Surgical History (Updated 12/04/22 @ 08:17 by Karen Young) H/O laminectomy H/O total knee replacement History of appendectomy History of back surgery History of cardiac catheterization History of carpal tunnel release History of cataract surgery History of colonoscopy History of elbow surgery History of hip replacement (~2021) History of knee surgery History of left heart catheterization (08/20/20) History of lumbar surgery History of shoulder surgery History of transcatheter aortic valve replacement (TAVR) (11/26/20) Social History (Updated 12/04/22 @ 08:18 by Karen Young) household members: spouse current occupational status: employed Smoking Status: Former smoker alcohol intake: never Past Medical/Surgical History Planned Operation Planned Operative Procedure/s: COLONOSCOPY Previous Hospitalizations/Surgeries HX Hospitalizations: No Any Problems With Anesthesia: No You/Your Family Experience Fever (Hyperthermia) With Anes: No Cholinesterase deficiency: No Cardiovascular Hx Chest Pain within Last 2 months: No Hx of Irregular Heartbeat and/or Afib: No Hx Heart Attack: No Hx Hypertension: Yes (CONTROLLED WITH MED) Hx Cardiac Surgery/Stents/Etc.: No Hx Pain in Legs when Walking/Leg Cramps: No Respiratory Hx Chronic Obstructive Pulmonary Disease (COPD): No Hx Emphysema: No Hx Sleep Apnea: Yes CPAP: Yes BIPAP: No Hx Respiratory Tract Infection/Cold (presently): No Result (for STOP score): Positive Hx Smoking: Yes (QUIT 45 YEARS AGO) Smoking Status: Former smoker Gastrointestinal Hx Gastrointestinal Bleed: Yes (polyp removed) Hx Ulcer: Yes (4th grade) Difficulty Chewing/Swallowing: No Hx Unplanned Weight Loss of 20#: No Neurological Hx Seizures: No Hx Multiple Sclerosis: No Hx Parkinson's Disease: No Does patient have nerve stimulator: No Blood Disorder Hx Hepatitis: Yes (HEP. 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) Recent Exposure to Contagious Disease: No Allergies hydromorphone HCl [From Dilaudid] Allergy (Verified 12/04/22 08:19) nausea, confusion Maternal: Family History Mother Skin cancer No pertinent history Discharge Is Pt Admitted From a Assisted, or a Retirement: No After D/C, Where Do you Plan to Go: Return Home From the PAT History Number of Risk Factors: 5 Vital Signs Vital Signs Vital Signs: 12/09/22 07:25 12/09/22 07:27 Temperature 99.3 F H Temperature Source Temporal Pulse Rate 88 Respiratory Rate 18 Respiratory Pattern Normal Blood Pressure 119/71 Blood Pressure Mean 87 Blood Pressure Source Monitor Blood Pressure Position Semi-Fowlers Blood Pressure Location Left Arm Pulse Ox 95 Oxygen Delivery Method Room Air Weight Weight: 313 lb 3.2 oz Body Mass Index (BMI) 46.9 Physical Exam Const alert and oriented x3 HEENT normocephalic Eyes PERRL Resp normal respiratory effort and normal air movement Cardio regular rate and regular rhythm GI soft to palpation, non-tender and non-distended Extremity normal to inspection Assessment & Plan Assessment/Plan (1) History of colon polyps: PLAN: I explained endoscopy in detail to the patient. I explained the risks including but not limited to stroke or heart attack with anesthesia, perforation of the GI tract, bleeding, infection. I explained that any of these could necessitate further emergency surgery. The patient understands and all questions were answered sufficiently. The patient wishes to proceed with procedure. Tay Escoto MD Pager: [facility] [address] [place] [address], [address] [place] [address] Office: Surgery Risks - Colonoscopy Risks Include but are not Limited To: Risks include but are not limited to: Bleeding, perforation requiring further surgery, inability to complete colonoscopy requiring barium enema.
--- NOTE | 2022-12-09 08:00 | COLBX_PTH ---
PATIENT: YOHANA MARTINEZ LOC: EN U#:[id number] AGE/SX: 67/M ROOM: RE12/09/[address]: Dr. Tay Escoto MD : [id number] BED: DIS: 12/09/2022 SPEC #: [id number] RECD: 12/09/22 10:22 STATUS: MAR MONTEZ #: [id number] MICHELLE: 12/09/22 08:[address]: Tay Escoto DEPT: SURGICAL PATHOLOGY RECD BY: Lilly Catalan ENTERED: 12/09/22 11:13 SP TYPE: COLON BX OTHR DR: Dr. Chun Schneider DO Tissues: Sigmoid colon biopsy Procedures: Surgery Specimen Level IV HEADER OPERATION: Colonoscopy ? open access (MAC) PRE-OP DIAGNOSIS: History of colon polyps TISSUE SUBMITTED: Sigmoid colon polyps MICROSCOPIC DIAGNOSIS Sigmoid colon polyp, biopsy: Tubular adenoma. AM:shahida 12/10/2022 MICROSCOPIC DESCRIPTION Slides are reviewed. GROSS DESCRIPTION Received in fixative is one container labeled with the patient's name and designated sigmoid colon polyp. The specimen consists of pink polyp measuring 0.8 x 0.5 x 0.3 cm. The specimen is totally submitted in one cassette. / SJ:shahida 12/09/2022 TC:5 CPT: 44716
--- NOTE | 2022-12-09 08:05 | OP.COLON_ITS ---
Patient Name: Christopher Silva Procedure Date: 12/09/2022 7:37 AM Date of : 1955 Age: 67 Procedure: Colonoscopy Indications: High risk colon cancer surveillance: Personal history of colonic polyps Providers: Tay Escoto MD Referring MD: Chun Schneider Medicines: Monitored Anesthesia Care Patient Profile: This is a 67 year old male. Refer to note in patient chart for documentation of history and physical. Last Colonoscopy: 5 years ago. Complications: No immediate complications. Estimated blood loss: Minimal. Procedure: Pre-Anesthesia Assessment: - Prior to the procedure, a History and Physical was performed, and patient medications and allergies were reviewed. The patient's tolerance of previous anesthesia was also reviewed. The risks and benefits of the procedure and the sedation options and risks were discussed with the patient. All questions were answered, and informed consent was obtained. Prior Anticoagulants: The patient has taken no previous anticoagulant or antiplatelet agents. After reviewing the risks and benefits, the patient was deemed in satisfactory condition to undergo the procedure. After I obtained informed consent, the scope was passed under direct vision. Throughout the procedure, the patient's blood pressure, pulse, and oxygen saturations were monitored continuously. The colonoscope was introduced through the anus and advanced to the cecum, identified by appendiceal orifice and ileocecal valve. The colonoscopy was performed without difficulty. The patient tolerated the procedure well. The quality of the bowel preparation was good. Scope In: 7:48:53 AM Scope Withdrawal Time 0 hours 9 minutes 33 seconds Scope Out: 8:01:53 AM Total Procedure Duration Time 0 hours 13 minutes 0 seconds Findings: Two polyps were found in the rectum and sigmoid colon. The polyps were small in size. These polyps were removed with a hot snare. Resection and retrieval were complete. The exam was otherwise without abnormality on direct and retroflexion views. Impression: - Two small polyps in the rectum and in the sigmoid colon, removed with a hot snare. Resected and retrieved. - The examination was otherwise normal on direct and retroflexion views. Recommendation: - Discharge patient to home. - Resume previous diet. - Continue present medications. - Resume aspirin at prior dose tomorrow. - Await pathology results. - Repeat colonoscopy in 5 years for surveillance based on pathology results. Procedure Code(s): --- Professional --- 57305, Colonoscopy, flexible; with removal of tumor(s), polyp(s), or other lesion(s) by snare technique Diagnosis Code(s): --- Professional --- Z86.010, Personal history of colonic polyps K62.1, Rectal polyp D12.5, Benign neoplasm of sigmoid colon CPT copyright 2017 [employer]. All rights reserved. The codes documented in this report are preliminary and upon remote coders review may be revised to meet current compliance requirements. Tay Escoto MD 12/09/2022 8:05:11 AM This report has been signed electronically. Number of Addenda: 0 Note Initiated On: 12/09/2022 7:37 AM
--- NOTE | 2022-12-09 08:05 | OP.CCLET_ITS ---
12/09/2022 Chun Schneider Re : Colonoscopy procedure for Christopher Silva Dear Wyatt This procedure was performed on Friday, December 09, 2022. My impressions and recommendations are as follows: Impressions : - Two small polyps in the rectum and in the sigmoid colon, removed with a hot snare. Resected and retrieved. - The examination was otherwise normal on direct and retroflexion views. Recommendations : - Discharge patient to home. - Resume previous diet. - Continue present medications. - Resume aspirin at prior dose tomorrow. - Await pathology results. - Repeat colonoscopy in 5 years for surveillance based on pathology results. My findings are described in the full procedure note, which is enclosed. If I can be of further assistance, please feel free to contact me at Doctor phone number(s): , Work: . Sincerely, Tay Escoto MD 12/09/2022 8:05:11 AM This report has been signed electronically.
[2022-12-09 08:10] VITALS: BP 108/76; BP 119/71; PULSE 79; RESP 16; TEMP 36.9; O2SAT 92
[2022-12-09 08:14] VITALS: BP 113/71; BP 119/71; PULSE 85; RESP 16; O2SAT 94
[2022-12-09 08:20] VITALS: BP 104/75; BP 119/71; PULSE 81; RESP 16; O2SAT 95
[2022-12-09 08:25] VITALS: BP 107/66; BP 119/71; PULSE 78; RESP 16; TEMP 37.4; O2SAT 95
[2022-12-09 08:47] VITALS: BP 119/71
== END 2022-12-09 09:14 | disposition home or self-care (01) ==
LOC: EN 07:05 → AC 07:06
PROVIDERS: PCP Family Medicine; Referring Provider Family Medicine; Visit Provider Surgery
PROC: 0DJD8ZZ Inspection of Lower Intestinal Tract, Via Natural or Artificial Opening Endoscopic (ICD-10-PCS; CPT 45378; principal; 2022-12-09 07:55)
DX: Z12.11 Encounter for screening for malignant neoplasm of colon (principal); E66.01 Morbid (severe) obesity due to excess calories; Z68.42 Body mass index [BMI] 45.0-49.9, adult; I25.10 Atherosclerotic heart disease of native coronary artery without angina pectoris; Z86.010 Personal history of colon polyps; I10 Essential (primary) hypertension; E78.00 Pure hypercholesterolemia, unspecified; Z87.891 Personal history of nicotine dependence; K62.1 Rectal polyp; Z79.82 Long term (current) use of aspirin; D12.5 Benign neoplasm of sigmoid colon; K21.9 Gastro-esophageal reflux disease without esophagitis; Z79.899 Other long term (current) drug therapy
CPT/HCPCS: 45385; 88305; J7120; J2405

== ENCOUNTER 2023-01-08 22:36 | Emergency (ER) | payer BC, SELFPAY ==
[2023-01-08 22:37] VITALS: BP 127/84; PULSE 99; RESP 16; TEMP 36.4; O2SAT 95; BMI 47.0
--- NOTE | 2023-01-08 23:12 | EDS_ITS ---
HPI History of Present Illness Chief Complaint: Mental Status Change Informant: patient Narrative Narrative: 67-year-old male for the past couple hours has been gradually getting more and more weak. 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 Has been drinking water but he states he has not urinated in about 12 hours. States he does not have the need to. He denies any other acute symptoms except for a rash has been there for the past several days, chest, shoulders, down toward his abdomen and his arms, similar to when he had a fungal rash in the past due to lack of ventilation and excessive heat. States he wiped some white stuff off and one of his intertriginous areas between his chest and his abdomen lately that look like fungal. He states is very itchy no pain. No new medications lately except for maybe his thyroid medication several weeks ago. [facility] Medical History Arthritis Back pain Blepharitis of left lower eyelid Bradycardia with 41-50 beats per minute Cancer Cardiology follow-up encounter Chalazion left lower eyelid Colonic polyp Coronary artery disease COVID-19 virus detected (08/03/21) CPAP (continuous positive airway pressure) dependence Disc degeneration, lumbar Dyslipidemia Elevated troponin Elevated troponin Essential (primary) hypertension Fatigue Former smoker Gastric reflux Hay fever Hiatal hernia Hiatal hernia High cholesterol History of echocardiogram History of hepatitis C History of hiatal hernia History of stress test History of transesophageal echocardiography (CHIKA) Hypertension Hypogonadism in male Hypoxemia Knee pain Left shoulder pain Leg cramps Lower GI bleed Morbid obesity with BMI of 45.0-49.9, adult Myasthenia gravis Nonobstructive atherosclerosis of coronary artery Nonrheumatic aortic (valve) stenosis Obstructive sleep apnea Osteoarthritis of left hip Prostate cancer Rheumatoid arthritis Shoulder pain Sleep apnea Wears glasses Home Medications furosemide 40 mg tablet 40 mg PO DAILY diuretic/water pill 02/14/15 [History Last Taken 06/11/22] niacin 500 mg tablet 500 mg PO QHS supplement 02/14/15 [History Last Taken 06/11/22] omega-3 acid ethyl esters 1 gram capsule 2 gm PO DAILY supplement 02/14/15 [History Last Taken 12/02/22] potassium chloride 20 mEq tablet,extended release(part/cryst) 20 meq PO DAILY supplement 02/14/15 [History Last Taken 06/11/22] testosterone cypionate 100 mg/mL intramuscular oil 1 ml IM Q14D hormone 02/14/15 [History Last Taken 06/11/22] folic acid 800 mcg tablet 0.8 mg PO DAILY supplement 03/09/17 [History Last Taken 06/11/22] lisdexamfetamine 50 mg capsule 60 mg PO DAILY ADHD 03/09/17 [History Last Taken 06/11/22] benazepril 40 mg tablet 40 mg PO DAILY blood pressure 07/12/19 [History Last Taken 06/12/22 04:45] ergocalciferol (vitamin D2) 1,250 mcg (50,000 unit) capsule 50,000 unit PO Q7D supplement 08/19/20 [History Last Taken 06/11/22] pregabalin 100 mg capsule 100 mg PO TID pain 01/25/21 [History Last Taken 06/11/22] sildenafil 100 mg tablet 100 mg PO DAILY PRN Erectile Dysfunction 11/04/21 [History Last Taken 06/11/22] 5-HTP 18.8 mg-tyrosine 187.5 vq-ofibmsmux-fwxejrcx-B6-C-chrom capsule 1 cap PO QHS supplement 06/26/22 [History Last Taken Unknown] calcium 600 mg capsule 1,200 mg PO DAILY supplement 06/26/22 [History Last Taken Unknown] aspirin 81 mg tablet,delayed release 81 mg PO DAILY 12/03/22 [History Last Taken 12/02/22] vitamin V60-nafjmln B1 5.5 mg-12.5 mcg/5 mL oral liquid 1 ml PO TID 12/03/22 [History Last Taken Unknown] acetaminophen 500 mg tablet 1,000 mg PO Q8 PRN pain 12/04/22 [History Last Taken Unknown] fluconazole 150 mg tablet 150 mg PO DAILY #1 TAB 01/09/23 [Rx Last Taken Unkn own] Allergy/AdvReac Type Severity Reaction Status Date / Time hydromorphone HCl Allergy nausea, Verified 01/08/23 22:40 [From Dilaudid] confusion Family History Mother Skin cancer Surgical History (Updated 12/04/22 @ 08:17 by Karen Young) H/O laminectomy H/O total knee replacement History of appendectomy History of back surgery History of cardiac catheterization History of carpal tunnel release History of cataract surgery History of colonoscopy History of elbow surgery History of hip replacement (~2021) History of knee surgery History of left heart catheterization (08/20/20) History of lumbar surgery History of shoulder surgery History of transcatheter aortic valve replacement (TAVR) (11/26/20) Social History household members: spouse current occupational status: employed Smoking Status: Former smoker alcohol intake: never ROS ROS ED Constitutional Constitutional ED: Reports fatigue, weakness and other Details: Sweating all day due to heat/factory/ambient environment ; Denies chills or fever(s) Eyes Eyes: Denies change in vision or diplopia ENT ENT ED: Denies rhinorrhea or sore throat Cardiovascular Cardiovascular: Denies chest pain or palpitations Respiratory/Chest Respiratory/Chest: Denies cough or dyspnea Gastrointestinal Gastrointestinal: Denies abdominal pain, diarrhea, nausea or vomiting Genitourinary Genitourinary ED: Denies dysuria or hematuria Musculoskeletal Musculoskeletal: Denies back pain or neck pain Integumentary Reports pruritus and rash; Denies abscess Neurologic Neurologic: Denies headache(s), paresthesias or weakness Psychiatric Psychiatric: Denies anxiety or suicidal thoughts EXAM Physical Exam Const Vital Signs: 01/08/23 22:37 Temperature 97.6 F L Temperature Source Temporal Pulse Rate 99 Respiratory Rate 16 Blood Pressure 127/84 H Blood Pressure Mean 98 Pulse Ox 95 Oxygen Delivery Method Room Air Positive well nourished, well developed and obese General Appearance ED: well developed and NAD Nutritional Appearance: obese HEENT Reports dry mucous membranes normocephalic and atraumatic Mouth ED: Yes dry mucous membranes Mouth: dry mucous membranes Eyes PERRL and EOMs intact bilaterally Neck full ROM, no lymphadenopathy and supple Chest Wall palpation of chest normal Resp normal respiratory effort and clear to auscultation bilaterally Cardio regular rate, regular rhythm and no murmurs Rate: tachycardic GI non-tender and non-distended Auscultation: normoactive bowel sounds Palpation: soft Back/Spine no CVA tenderness General Back: other FROM Extremity normal to inspection General Extremety ED: Yes edema; Negative for pulses abnormal or tenderness General Extremity: edema bilateral lower extremity Details: moderate; Negative for pulses abnormal Neuro oriented x3, CN's II-XII intact bilaterally and no sensory deficits noted Neuro Narrative: Normal speech Sensorium / Orientation: awake and alert Motor Exam: strength 5/5 throughout Psych mental status grossly normal Skin no wounds Skin Narrative: Erythematous rash throughout chest, lessens as a goes into the abdomen, also on top of the shoulders and upper arms, it is more prominent in intertriginous areas. No tenderness. More macular and patchy, no raised lesions or bullae or petechia/purpura. MDM MDM MDM Narrative Medical decision making narrative: Patient was given IV fluids since he looked and sounded dehydrated while we obtained labs. The labs confirm this, showing a BUN of 34 and creatinine 1.9, I compared this to old labs, usually has a creatinine under 1. He is feeling much better with IV fluids and he has not finished the whole liter yet. He was drinking some fluids as well. He looks better. Concerned about his rash, I agree it is probably a fungal infection given its appearance, I am going to prescribe him a Diflucan it does not seem to interact dangerously with any medications he is on right now, advised to follow-up with his doctor regarding this as well as his acute renal insufficiency. History & Record Review Additional record(s) reviewed:: Prior labs Lab Data Attestation: I reviewed the patient's lab results. Labs: Laboratory Results - last 24 hr 01/08/23 23:30 WBC 9.4 RBC 5.59 Hgb 17.2 H Hct 51.0 MCV 91.2 MCH 30.8 MCHC 33.7 RDW Std Deviation 44.7 H RDW Coeff of Shahzad 13.2 Plt Count 294 MPV 9.9 Immature Gran % (Auto) 0.400 Neut % (Auto) 75.2 H Lymph % (Auto) 14.4 L Mclennan % (Auto) 6.6 Eos % (Auto) 2.4 Baso % (Auto) 1.0 Absolute Neuts (auto) 7.1 Absolute Lymphs (auto) 1.35 Nucleated RBC % 0 Sodium 140 Potassium 4.7 Chloride 104 Carbon Dioxide 26.0 Anion Gap 10 BUN 34 H Creatinine 1.90 H Estim Creat Clear Calc 35.50 Est GFR (MDRD) Af Amer 45 L Est GFR (MDRD) Non-Af 38 L BUN/Creatinine Ratio 17.9 Glucose 99 Calcium 9.8 Rhythm Strip Rhythm Strip: Sinus Tach Rate: 102 Ectopy: None EKG Initial EKG: Attestation: I personally reviewed and interpreted this EKG as follows: Interpretation: Sinus Rhythm and No Acute Injury Pattern Comments: Inferior Q waves Prior EKG tracings: available for review (06/27/2022) Prior: Unchanged Discharge Plan Triage Chief Complaint: Mental Status Change ED Provider: Josue Jamison Dx/Rx/DC Orders Clinical Impression: JASON (acute kidney injury), Acute dehydration, Tinea corporis Instructions: Dehydration, ED Fungal Skin Infection (Tinea) Prescriptions: New fluconazole 150 mg tablet 150 mg PO DAILY Qty: 1 0RF No Action pregabalin 100 mg capsule 100 mg PO TID Patient Comments: TAKE 1 CAPSULE BY MOUTH 3 TIMES A DAY sildenafil 100 mg tablet 100 mg PO DAILY PRN (Reason: Erectile Dysfunction) furosemide 40 MG tablet 40 mg PO DAILY testosterone cypionate 100 MG/ML oil 1 ml IM Q14D potassium chloride 20 MEQ tablet 20 meq PO DAILY omega-3 acid ethyl esters 1 GM capsule 2 gm PO DAILY niacin 500 MG tablet 500 mg PO QHS folic acid 0.8 MG tablet 0.8 mg PO DAILY lisdexamfetamine 50 MG capsule 60 mg PO DAILY Patient Comments: TAKE ONE CAPSULE BY MOUTH EVERY DAY benazepril 40 MG tablet 40 mg PO DAILY ergocalciferol (vitamin D2) 50,000 UNIT capsule 50,000 unit PO Q7D Rx Instructions: on sundays calcium 600 mg Capsule 1,200 mg PO DAILY [id number]-fycp-jvula-F6-J-chr 18.8-187.5-93.8 mg Capsule 1 cap PO QHS acetaminophen 500 mg tablet 1,000 mg PO Q8 PRN (Reason: pain) aspirin 81 mg tablet,delayed release (DR/EC) 81 mg PO DAILY vitamin H36-xigbbpj B1 5.5-12.5 mg-mcg/5 mL Liquid 1 ml PO TID Primary Care Provider: Chun Schneider Referrals: Chun Schneider DO [Primary Care Provider] - (Next week, call for appointment) Disposition Disposition: Home, Self Care
--- NOTE | 2023-01-08 23:14 | EKG12_ITS ---
Test Reason : DYSRHYTHMIA Blood Pressure : / mmHG Vent. Rate : 092 BPM Atrial Rate : 092 BPM P-R Int : 152 ms QRS Dur : 092 ms QT Int : 344 ms P-R-T Axes : 027 004 071 degrees QTc Int : 425 ms Normal sinus rhythm Inferior infarct , age undetermined Abnormal ECG Confirmed by NBA CURTIS, SHANNON ([id number]), society editor YADY DURBIN ([id number]) on 01/12/2023 12:57:13 PM Referred By: BB Confirmed By:SHANNON ARANGO MD
[2023-01-08 23:40] LABS: Absolute Lymphocyte Count 1.35 X10^3/uL (0.83-4.51); Absolute Neutrophil Count 7.1 X10^3/uL (2.0-7.7); Basophil# 0.09 X10^3/uL; Eosinophil# 0.23 X10^3/uL; Eosinophils% 2.4 % (0-5); Hemoglobin 17.2 g/dL (13.0-16.5); Lymphocyte # 1.35 X10^3/ul (0.83-4.51); Lymphocyte % 14.4 % (19-41); Mean Corp Hgb Conc 33.7 g/dL (32-36); Mean Corpuscular Hgb 30.8 pg (27.0-32.0); Mean Corpuscular Volume 91.2 fL (80-94); Mean Platelet Vol. 9.9 fl (6.2-12.0); Monocyte# 0.62 X10^3/uL; Monocyte% 6.6 % (0-10); NRBC Flagged by Analyzer 0 % (0-5); Neutrophil # 7.06 X10^3/uL (2.7-7.7); Neutrophil % 75.2 % (47-70); Platelet Count 294 K/mm3 (150-450); RBC Distribution Width CV 13.2 % (11.6-14.6); RBC Distribution Width SD 44.7 fl (35.1-43.9); Red Blood Count 5.59 M/mm3 (4.6-6.2); White Blood Count 9.4 K/mm3 (4.4-11.0)
[2023-01-08] MEDS: 0.9% Normal Saline 1,000 ML 999 ML IV (23:45)
[2023-01-08 23:54] LABS: Anion Gap 10 (5-15); BUN 34 mg/dL (7-18); BUN/Creat Ratio 17.9 RATIO (10-20); Calcium,Total 9.8 mg/dL (8.5-10.1); Chloride 104 mmol/L (98-107); EST Glomerular Filtration Rate 38 mL/min (>60); Est Glom Filt Rate - Afr Amer 45 mL/min (>60); Glucose 99 mg/dL (74-106); Potassium 4.7 mmol/L (3.5-5.1); Sodium Level 140 mmol/L (136-145)
[2023-01-09 02:11] VITALS: BP 102/60; PULSE 78; RESP 18
== END 2023-01-09 02:13 | disposition home or self-care (01) ==
PROVIDERS: Emergency Provider Emergency Medicine; PCP Family Medicine; Visit Provider Emergency Medicine
DX: N17.9 Acute kidney failure, unspecified (principal); Z68.42 Body mass index [BMI] 45.0-49.9, adult; E78.00 Pure hypercholesterolemia, unspecified; I25.10 Atherosclerotic heart disease of native coronary artery without angina pectoris; B35.4 Tinea corporis; I10 Essential (primary) hypertension; E86.0 Dehydration; E66.9 Obesity, unspecified; Z79.82 Long term (current) use of aspirin; Z79.899 Other long term (current) drug therapy; Z86.16 Personal history of COVID-19; Z87.891 Personal history of nicotine dependence
CPT/HCPCS: 80048; 85025; 93005; 96360; 96361; 99283; J7030; A4216

== ENCOUNTER → 2023-01-29 | Outpatient (CLI) | payer OTHER, SELFPAY ==
--- NOTE | 2023-01-29 16:30 | RAD_ITS ---
STUDY: XR Hand Min 3 Views REASON FOR EXAM: Male, 67 years old. hand pain and swelling TECHNIQUE: XR Hand 3 Views RIGHT COMPARISON: None. FINDINGS: Normal radiocarpal articulation. Normal distal radioulnar joint. Normal visualized carpal bones. Normal carpal articulations There is degenerative arthrosis of the carpometacarpal (CMC) articulation of the thumb. Normal second through fifth carpometacarpal joints. Normal metacarpi. Normal metacarpophalangeal joint of the thumb. Normal interphalangeal joint of the thumb. Normal proximal and distal phalanges of the thumb. There is degenerative arthrosis of the metacarpophalangeal (MCP) joints(2nd and 3rd digit. ). There is diffuse articular joint space narrowing of the proximal and distal interphalangeal joints of the second through fifth fingers, but without erosive changes or periarticular soft tissue swelling. Normal phalanges of the second through fifth fingers. The soft tissue structures are unremarkable. RAD/Hand Min 3 Views IMPRESSION: Degenerative joint disease of the hand and wrist, as described above. Electronically Signed: Nadeem Geller MD at 17:10 EDT Reading Location ID and State: [facility] / [place] , Service support ,
== END | disposition home or self-care (01) ==
LOC: MTRAD 16:24
PROVIDERS: PCP Family Medicine; Visit Provider Physician Assistant Surgical
DX: S66.911A Strain of unspecified muscle, fascia and tendon at wrist and hand level, right hand, initial encounter (principal)
CPT/HCPCS: 73130

== ENCOUNTER 2023-04-03 10:00 | Outpatient (RCR) | payer OTHER, SELFPAY ==
--- NOTE | 2023-02-16 08:59 | HP.OTEVAL_ITS ---
Patient's Visit Information Visit Information Visit Information: YOHANA MARTINEZ is a 67 year old M, referred to Occupational Therapy by HELEN Willingham, with a diagnosis of right hand strain. Date of Evaluation: 02/13/23 Occupational Therapist: Marlen Quintana, SUMIT/Bandar, CHT Subjective Subjective: Pt is 67 year old male with a diagnosis right hand strain. Pt reports on pain then on January 28, 2023 was performing a new activity on with cleaning a large piece of equipment at work with 10-15# plates on the top and required to reach above his head - pt was off January 29-and utilized ice to decrease swelling - it helped to a point - when attempting to close hand it was hard - pt has been wearing a brace that helps with pain. Pt reports Dr states pt should not use R hand and gave wrist cock-up brace. Pt states he has been using his left hand at work. Pt states that right shoulder is functional though it needs work. Pt reports palmar side MCP swollen at night. Pt reports a heat rash on the right arm at the proximal end of wrist splint. PMHx: Had left hip and then 2 weeks post left shoulder replacement Jun 12 - returned back to work December 31 with full release then had outpatient therapy at [facility] - has been working out at [employer] ~25 years ago Pt lives at home with his and 5 cats. Pt is right hand dominant. ADLs Dressing: Socks Fasteners: Buttons and Zippers Comments: Writing minimal deficit able to hold a cup dressing takes about 15% more time Pain R hand: Current Pain Intensity: 3 Pain Intensity Range: 0 and 7 Objective Objective/Observation: rash at distal end of brace ROM Forearm: WNL Wrist: R 40/50 L 55/60 Opposition: Kapandji opposition Scale: Right 8 and Left 10 ROM Comments: Unable to make a composite fist R hand 2.5cm able to make a full fist with L hand no pain with supin/pronat - initially - with increased pronation movement pt reports pain along the ulnar side of his R arm Strength Elbow: R -3/130 L - WFL with hx of sx 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: R 16# L 85# Lateral Pinch: R 7# L 21# Tripod Pinch: R 8# (wrist in neutral) L15# Strength Comments: with 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 Pt will demonstrate understanding of at least 3 joint protection to decrease joint stress while performing ADL tasks by d/c. Rehabilitation General Assessment: Patient presented with R hand pain. The pain is affecting his ability to perform ADL and IADL tasks. 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 Pt will benefit from skilled OT treatment 2-3x a week for 4-6 weeks for increased strength and improvement in ADL and IADL tasks. Pt educated in ulnar nerve glides, OT POC, and healing process with strain injuries. Encouraged pt to perform ADL tasks within pain free range. Pt verbalizes agreeable to OT POC and demonstrates understanding of nerve glides. Therapy session was directly supervised by Marlen ARANA/Bandar,CHT. Rehabilitation Potential: Good Anticipated Interventions Anticipated Interventions: A/AAROM/PROM, Strengthening, Triggerpoint Release, Modalities, Orthoses, Joint Protection/Energy Conservation, Ergonomic Education, Education re assistive Equipment, Education re Diagnosis and Home Program Visit Plan Frequency: 3x /Week Duration: 4-6 Weeks TEXT: Thank you for the opportunity to evaluate your patient. For Medicare and Medicare HMO plans, please review the plan of care and approve it. It will need to be FAXED BACK to us at [phone] for Medicare purposes. Please let me know if there are questions or concerns regarding this plan of care. Physician Signature: ___Date:
--- NOTE | 2023-04-03 10:30 | HP.OTREVAL ---
Re-Evaluation Intro: HELEN Willingham, It has been my pleasure to treat YOHANA MARTINEZ over the last 11 visits for right hand strain. Please see the progress note below for an update on the occupational therapy plan of care! 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 Plan Plan Frequency: 3x /Week Duration: 4-6 Weeks Visits in this POC: 4-6 weeks (3x week) Plan: pt to return to . for possible release to full duty Goals Goals Patient Goals: Decrease Pain, Return to Work, Decrease Swelling/Stiffness, Improve Fine Motor Skills, Use Hand/Wrist/Arm Normally Again, Increase ROM, Be More Independent in ADLS, Resume Former Household Responsibilities (Cooking,Cleaning,Yard, etc.) and Resume Hobbies Goal:ROM equal to unaffected hand: Yes Goal:Applied Behavior Science Specialist/Pinch strength at least 75% of unaffected hand: Yes Goal:No pain with affected hand use: Yes Goal:Full use of affected hand in daily activities including work: Yes Other Goal: Pt to demo overall increased indep in ADL/IADL tasks by decreased total DASH score by 20 points by discharge. Pt will demonstrate understanding of at least 3 joint protection to decrease joint stress while performing ADL tasks by d/c. Anticipated Interventions Anticipated Interventions Anticipated Interventions: A/AAROM/PROM, Strengthening, Triggerpoint Release, Modalities, Orthoses, Joint Protection/Energy Conservation, Ergonomic Education, Education re assistive Equipment, Education re Diagnosis and Home Program Re-Evaluation Ending Re-evaluation ending: Please do not hesitate to contact me at [phone] by phone or if you have questions or concerns regarding this new plan of care! Sincerely, Marlen Quintana, OTR/L, CHT
--- NOTE | 2023-06-15 09:58 | HP.OTDCSUM ---
Discharge Summary D/C Summary: It has been my pleasure to treat YOHANA MARTINEZ under orders from HELEN Willingham, for the diagnosis of right hand strain for a total of 11 visit(s). Please see the following information for a summary of their discharge status. Overall Improvement % Improvement: 80 Objective Objective/Function: right wrist ROM 65/45 UD right collar tailor strength 75# left 85# right lateral pinch 20# left 21# right tripod pinch 22# left 22# pt states he feels he is interested in returning to 3rd shift - thinking of changing position as this will change to smaller parts and no overhead reaching- pt feels this should decrease stress on his body as he knows he is aging. Goals Patient Goals: Decrease Pain, Return to Work, Decrease Swelling/Stiffness, Improve Fine Motor Skills, Use Hand/Wrist/Arm Normally Again, Increase ROM, Be More Independent in ADLS, Resume Former Household Responsibilities (Cooking,Cleaning,Yard, etc.) and Resume Hobbies Goal:ROM equal to unaffected hand: Yes Goal:Commissary Manager/Pinch strength at least 75% of unaffected hand: Yes Goal:No pain with affected hand use: Yes Goal:Full use of affected hand in daily activities including work: Yes Other Goal: Pt to demo overall increased indep in ADL/IADL tasks by decreased total DASH score by 20 points by discharge. Pt will demonstrate understanding of at least 3 joint protection to decrease joint stress while performing ADL tasks by d/c. Plan Plan: pt to return to for possible release to full duty D/C Information d/c sentence: If there are questions or concerns regarding this patient's occupational therapy, please fell free to call me at [phone]. Thank you for the referral of this patient. Sincerely, Marlen Quintana, OTR/L, CHT
== END 2023-04-03 19:00 | disposition home or self-care (01) ==
LOC: OT 10:00
PROVIDERS: PCP Family Medicine; Referring Provider Physician Assistant Surgical; Visit Provider Physician Assistant Surgical
DX: S66.911D Strain of unspecified muscle, fascia and tendon at wrist and hand level, right hand, subsequent encounter (principal)
CPT/HCPCS: 97035; 97110; 97140; 97166; 97530

== ENCOUNTER 2023-09-10 22:50 | Emergency (ER) | payer BC, SELFPAY ==
[2023-09-10 22:51] VITALS: BP 163/83; PULSE 77; RESP 20; TEMP 36.8; O2SAT 95; BMI 47.0
--- NOTE | 2023-09-10 23:21 | RAD_ITS ---
EXAM: XR CHEST, 2 VIEWS CLINICAL INDICATION: chest pain TECHNIQUE: Frontal and lateral views of the chest. COMPARISON: Single view chest 06/26/2022 FINDINGS: LUNGS AND PLEURAL SPACES: Unremarkable. No consolidation or edema. No pneumothorax. No effusion. HEART: Surgical changes in the region of the aortic valve. MEDIASTINUM: Central airways and mediastinal contour are unremarkable. BONES/JOINTS: Degenerative changes of the spine. No acute fracture. SOFT TISSUES: Unremarkable. RAD/Chest PA and Lateral IMPRESSION: No acute findings in the chest. Electronically Signed: Nadeem Middleton MD at 23:59 EST ,
--- NOTE | 2023-09-10 23:22 | EKG12_ITS ---
Test Reason : CHEST PRESSURE Blood Pressure : / mmHG Vent. Rate : 078 BPM Atrial Rate : 078 BPM P-R Int : 154 ms QRS Dur : 096 ms QT Int : 344 ms P-R-T Axes : -14 -13 131 degrees QTc Int : 392 ms Normal sinus rhythm Low voltage QRS Inferior infarct (cited on or before 27-JUN-2022) Abnormal ECG Confirmed by ALANA CURTIS, IRAIS ([id number]), department editor ALFREDO SHAVER ([id number]) on 09/14/2023 7:01:52 AM Referred By: TERA Confirmed By:SAMPSON WARNER MD
--- NOTE | 2023-09-10 23:30 | EDS_ITS ---
HPI History of Present Illness Chief Complaint: Chest Pain Informant: patient Narrative Narrative: Patient is a 67-year-old male with past medical history of hypertension hyperlipidemia and valve replacement. He states he was at work this evening when he noticed that he would have bouts of chest pressure that extended into his upper abdomen that would last about 5 to 6 minutes and then resolved. He states that during this time he felt like he could not take a deep breath . However there was no nausea vomiting or diaphoresis. He states that he had 3-4 episodes over the course of 1 to 2 hours and with concern this could be caused by a cardiac event presents for evaluation [facility] Medical History Arthritis Back pain Blepharitis of left lower eyelid Bradycardia with 41-50 beats per minute Cancer Cardiology follow-up encounter Chalazion left lower eyelid Colonic polyp Coronary artery disease COVID-19 virus detected (08/03/21) CPAP (continuous positive airway pressure) dependence Disc degeneration, lumbar Dyslipidemia Elevated troponin Elevated troponin Essential (primary) hypertension Fatigue Former smoker Gastric reflux Hay fever Hiatal hernia Hiatal hernia High cholesterol History of echocardiogram History of hepatitis C History of hiatal hernia History of stress test History of transesophageal echocardiography (CHIKA) Hypertension Hypogonadism in male Hypoxemia Knee pain Left shoulder pain Leg cramps Lower GI bleed Morbid obesity with BMI of 45.0-49.9, adult Myasthenia gravis Nonobstructive atherosclerosis of coronary artery Nonrheumatic aortic (valve) stenosis Obstructive sleep apnea Osteoarthritis of left hip Prostate cancer Rheumatoid arthritis Shoulder pain Sleep apnea Wears glasses Home Medications furosemide 40 mg tablet 40 mg PO DAILY diuretic/water pill 02/14/15 [History Last Taken 06/11/22] niacin 500 mg tablet 500 mg PO QHS supplement 02/14/15 [History Last Taken 06/11/22] omega-3 acid ethyl esters 1 gram capsule 2 gm PO DAILY supplement 02/14/15 [History Last Taken 12/02/22] potassium chloride 20 mEq tablet,extended release(part/cryst) 20 meq PO DAILY supplement 02/14/15 [History Last Taken 06/11/22] testosterone cypionate 100 mg/mL intramuscular oil 1 ml IM Q14D hormone 02/14/15 [History Last Taken 06/11/22] folic acid 800 mcg tablet 0.8 mg PO DAILY supplement 03/09/17 [History Last Taken 06/11/22] lisdexamfetamine 50 mg capsule 60 mg PO DAILY ADHD 03/09/17 [History Last Taken 06/11/22] benazepril 40 mg tablet 40 mg PO DAILY blood pressure 07/12/19 [History Last Taken 06/12/22 04:45] ergocalciferol (vitamin D2) 1,250 mcg (50,000 unit) capsule 50,000 unit PO Q7D supplement 08/19/20 [History Last Taken 06/11/22] pregabalin 100 mg capsule 100 mg PO TID pain 01/25/21 [History Last Taken 06/11/22] sildenafil 100 mg tablet 100 mg PO DAILY PRN Erectile Dysfunction 11/04/21 [History Last Taken 06/11/22] calcium 600 mg capsule 1,200 mg PO DAILY supplement 06/26/22 [History Last Taken Unknown] aspirin 81 mg tablet,delayed release 81 mg PO DAILY 12/03/22 [History Last Taken 12/02/22] vitamin [id number] B1 5.5 mg-12.5 mcg/5 mL oral liquid 1 ml PO BID 12/03/22 [History Last Taken Unknown] acetaminophen 500 mg tablet 1,000 mg PO Q8 PRN pain 12/04/22 [History Last Taken Unknown] ascorbic acid (vitamin C) 1,000 mg capsule 1 g PO DAILY 05/12/23 [History Last Taken Unknown] levothyroxine 50 mcg tablet 50 mcg PO DAILY 05/12/23 [History Last Taken Unknown] Allergy/AdvReac Type Severity Reaction Status Date / Time hydromorphone HCl Allergy nausea, Verified 09/10/23 22:53 [From Dilaudid] confusion Family History Mother Skin cancer Surgical History H/O laminectomy H/O total knee replacement History of appendectomy History of back surgery History of cardiac catheterization History of carpal tunnel release History of cataract surgery History of colonoscopy History of elbow surgery History of hip replacement (~2021) History of knee surgery History of left heart catheterization (08/20/20) History of lumbar surgery History of shoulder surgery History of transcatheter aortic valve replacement (TAVR) (11/26/20) Social History (Reviewed 05/12/23 @ 10:40 by Juan Lundy [employer] SUPPLY LOAD BUILDER, [employer]EN SUPPLY LOAD BUILDER-C) household members: spouse current occupational status: employed Smoking Status: Former smoker alcohol intake: never ROS ROS ED Constitutional Constitutional ED: Denies chills or fever(s) ENT ENT ED: Denies sore throat Cardiovascular Cardiovascular: Reports chest pain; Denies palpitations or racing heartbeat Respiratory/Chest Respiratory/Chest: Denies cough or dyspnea Gastrointestinal Gastrointestinal: Reports abdominal pain; Denies diarrhea, nausea or vomiting Genitourinary Genitourinary ED: Denies dysuria Musculoskeletal Musculoskeletal: Denies myalgias Integumentary Denies rash Neurologic Neurologic: Denies headache(s) Hematologic/Lymphatic Hematologic/Lymphatic: Denies easy bleeding or easy bruising EXAM Physical Exam Const Vital Signs: 09/10/23 22:51 09/10/23 22:51 Temperature 98.3 F Temperature Source Temporal Pulse Rate 77 Respiratory Rate 20 H Respiratory Effort Normal Non-Labored Blood Pressure 163/83 H Blood Pressure Mean 109 Pulse Ox 95 Oxygen Delivery Method Room Air Positive well nourished and well developed General Appearance ED: well developed HEENT HEENT Narrative: Normocephalic atraumatic Eyes PERRL and EOMs intact bilaterally General Eye ED: Negative for scleral icterus Neck supple Chest Wall palpation of chest normal Chest Narrative: No bony deformity or crepitance noted Resp normal respiratory effort and clear to auscultation bilaterally Cardio regular rate and regular rhythm Rate: other Other Details: Heart is regular rate and rhythm with grade 3 out of 6 holosystolic murmur Radial and carotid pulses are equal and symmetric GI non-distended GI Narrative: Patient has mild pain on palpation in the midepigastric region without voluntary guarding or rigidity No pulsatile mass or fluid wave No obvious hernia palpated Auscultation: normoactive bowel sounds Palpation: soft Extremity normal to inspection Extremity Narrative: No asymmetric edema no pitting edema negative Homans' sign bilaterally Neuro oriented x3, CN's II-XII intact bilaterally and no sensory deficits noted Sensorium / Orientation: alert Motor Exam: strength 5/5 throughout Psych mental status grossly normal Skin no rashes or lesions noted General Skin Exam: Negative for jaundice MDM MDM MDM Narrative Medical decision making narrative: Patient arrived to the ER mildly hypertensive otherwise with stable vitals. He also reported he was spontaneously having improvement of his symptoms. He has a history of CAD as well as hypertension and hyperlipidemia along with his age this is concerning for acute coronary syndrome but there is also possibility that this could be related to biliary colic versus acute cholecystitis versus pancreatitis versus gastritis or esophageal spasm. Secondary to this basic blood work was obtained. Also as patient is on testosterone there is concern this could be due to a DVT/PE so D-dimer was added. Patient's D-dimer was mildly elevated at 0.85 so CTA was obtained which revealed no PE or dissection. The patient's initial troponin was elevated at 175 and the 2-hour delta remained relatively flat with only an increase of 5 points to a value of 180. The patient was pain-free shortly after arrival and remained that way for the entire ER stay. As his history risk factors and exam do indicate this is most likely secondary to acute coronary syndrome or vessel spasm I discussed the case with cardiology on-call Dr. Steele. He reviewed the patient's case and at this time the patient is pain-free and in 2021 his troponin was also elevated at approximately 100 and at that time his stress test was negative. As his values today are remaining flat and are only slightly elevated compared to roughly a year and a half ago he feels that the patient is safe for discharge and should talk to his director of marketing communications on an outpatient basis to receive a potential repeat stress test or further cardiac workup. This plan of care was discussed with the patient and family and as he is pain-free and his troponins are remaining stable he is comfortable with this plan of action and will follow-up with his director of marketing communications as directed. History & Record Review Discussion w/independent historian: Patient Lab Data Attestation: I reviewed the patient's lab results. Labs: Laboratory Results - last 24 hr 09/10/23 09/11/23 23:08 01:25 WBC 8.4 RBC 5.61 Hgb 17.0 H Hct 51.8 MCV 92.3 MCH 30.3 MCHC 32.8 RDW Std Deviation 46.1 H RDW Coeff of Shahzad 13.5 Plt Count 276 MPV 10.5 Immature Gran % (Auto) 0.500 Neut % (Auto) 65.3 Lymph % (Auto) 23.6 [place] % (Auto) 6.2 Eos % (Auto) 2.8 Baso % (Auto) 1.6 H Absolute Neuts (auto) 5.5 Absolute Lymphs (auto) 1.97 Nucleated RBC % 0 PT 13.9 INR 1.1 APTT 40.7 H D-Dimer Quant (PE/DVT) 0.85 H* Sodium 141 Potassium 4.2 Chloride 106 Carbon Dioxide 31.0 Anion Gap 4 L BUN 30 H Creatinine 1.18 Estim Creat Clear Calc 81.17 Est GFR (MDRD) Af Amer 79 Est GFR (MDRD) Non-Af 65 BUN/Creatinine Ratio 25.4 H Glucose 85 Calcium 9.3 Total Bilirubin 0.70 Direct Bilirubin 0.15 AST 33 ALT 29 Alkaline Phosphatase 87 Troponin I High Sens 175 H* 180 H* Total Protein 7.7 Albumin 3.8 Globulin 3.9 Lipase 23 Radiography Diagnostic Testing: Clinical Impression(s) from Imaging Studies Chest X-Ray 09/10/23 23:21 IMPRESSION: No acute findings in the chest. Electronically Signed: Nadeem Middleton MD at 23:59 EST Reading Location ID and State: [facility] / [place] Tel , Service support , Chest CTA 09/11/23 23:50 IMPRESSION: No pulmonary embolism or other acute abnormality identified in the chest. Electronically Signed: Nadeem Middleton MD at 0:38 EST Reading Location ID and State: [facility] / [place] Tel , Service support , Chest x-ray as interpreted by the emergency medicine physician reveals no acute infiltrate pneumothorax or pleural effusion Management Discussion w/another healthcare provider: Office Bookkeeper Discharge Plan Triage Chief Complaint: Chest Pain ED Provider: Jose Trinh Dx/Rx/DC Orders Clinical Impression: Chest pain due to coronary artery disease, Essential (primary) hypertension, Dyslipidemia Instructions: ED Chest Pain, Uncertain Cause, ED Heart Disease Risk Factors Prescriptions: No Action pregabalin 100 mg capsule 100 mg PO TID Patient Comments: TAKE 1 CAPSULE BY MOUTH 3 TIMES A DAY sildenafil 100 mg tablet 100 mg PO DAILY PRN (Reason: Erectile Dysfunction) levothyroxine 50 mcg tablet 50 mcg PO DAILY ascorbic acid (vitamin C) 1,000 mg capsule 1 g PO DAILY furosemide 40 MG tablet 40 mg PO DAILY testosterone cypionate 100 MG/ML oil 1 ml IM Q14D potassium chloride 20 MEQ tablet 20 meq PO DAILY omega-3 acid ethyl esters 1 GM capsule 2 gm PO DAILY niacin 500 MG tablet 500 mg PO QHS folic acid 0.8 MG tablet 0.8 mg PO DAILY lisdexamfetamine 50 MG capsule 60 mg PO DAILY Patient Comments: TAKE ONE CAPSULE BY MOUTH EVERY DAY benazepril 40 MG tablet 40 mg PO DAILY ergocalciferol (vitamin D2) 50,000 UNIT capsule 50,000 unit PO Q7D Rx Instructions: on sundays calcium 600 mg Capsule 1,200 mg PO DAILY acetaminophen 500 mg tablet 1,000 mg PO Q8 PRN (Reason: pain) aspirin 81 mg tablet,delayed release (DR/EC) 81 mg PO DAILY vitamin [id number]-thjausg B1 5.5-12.5 mg-mcg/5 mL Liquid 1 ml PO BID Primary Care Provider: Chun Schneider Referrals: Fred Bond MD [Med Staff - Active Staff] - Chun Schneider DO [Primary Care Provider] - Activity Restrictions/Additional Instructions: Please contact your director of marketing communications office later today to inform them of the symptoms was brought to the ER and discuss having a outpatient stress test performed. Continue all of your medications as directed by your doctor and return to the ER should you have any further concerns or worsening of symptoms Disposition Disposition: Home, Self Care
[2023-09-10 23:33] LABS: Absolute Lymphocyte Count 1.97 X10^3/uL (0.83-4.51); Absolute Neutrophil Count 5.5 X10^3/uL (2.0-7.7); Basophil# 0.13 X10^3/uL; Basophil% 1.6 % (0-1); Eosinophil# 0.23 X10^3/uL; Eosinophils% 2.8 % (0-5); Hematocrit 51.8 % (40-54); Lymphocyte # 1.97 X10^3/ul (0.83-4.51); Lymphocyte % 23.6 % (19-41); Mean Corp Hgb Conc 32.8 g/dL (32-36); Mean Corpuscular Hgb 30.3 pg (27.0-32.0); Mean Corpuscular Volume 92.3 fL (80-94); Mean Platelet Vol. 10.5 fl (6.2-12.0); Monocyte# 0.52 X10^3/uL; Monocyte% 6.2 % (0-10); NRBC Flagged by Analyzer 0 % (0-5); Neutrophil # 5.47 X10^3/uL (2.7-7.7); Neutrophil % 65.3 % (47-70); Platelet Count 276 K/mm3 (150-450); RBC Distribution Width CV 13.5 % (11.6-14.6); RBC Distribution Width SD 46.1 fl (35.1-43.9); Red Blood Count 5.61 M/mm3 (4.6-6.2); White Blood Count 8.4 K/mm3 (4.4-11.0)
--- OUTSIDE RECORDS SUMMARY | 2023-09-10 23:50 | XMS RPT_ITS | CCD ---
Author Name Unknown Address [address] [place] [address] Organization [facility] Care Team Providers Care Marketing Secretary Name Role Phone BRANDON GREENBERG Referring Unavailable BRANDON GREENBERG Attending Unavailable BRANDON GREENBERG Attending Unavailable BRANDON GREENBERG Referring Unavailable Aury Vieira Primary Care Provider [phone] AURY VIEIRA DO Attending Unavailable AURY VIEIRA DO Primary Care Unavailable RENALDO LOWE Attending Unava ilable AURY VIEIRA DO Primary Care Unavailable AURY VIEIRA DO Primary Care Unavailable AURY VIEIRA DO Attending Unavailable Allergies Allergy Classification Reported Allergen(s) Allergy Type Date of Onset Reaction(s) Facility Opioid Agonists (2 sources) HYDROmorphone Drug Allergy 1 Nausea And Vomiting [facility] (2 sources) HYDROmorphone; Translations: [HYDROMORPHONE] Drug Allergy 6 Nausea And Vomiting [facility] Repository Medications Current Medications Medication Drug Class(es) Dates Sig (Normalized) Sig (Original) 5-hydroxytryptophan 100 mg oral capsule (3 sources) take 5 capsules by mouth twice daily 5-Hydroxytryptopha n 100 MG CAPS Take by mouth 2 times daily 0 Active acetaminophen 325 mg oral tablet (1 source) Start: 11-26-2020 take 650 mg by mouth every four hours as needed for pain, then take 4000 mg by mouth every twenty-four hours as needed for pain 650 mg, Oral, EVERY 4 HOURS PRN, Pain Mild (1-3), Fever, Fever >100.5 F (38 C), Starting on Thu11/26/20 at 0910 Maximum dose of acetaminophen is 4000 mg from all sources in 24 hours. Post-op amoxicillin 500 mg oral capsule (1 source) Penicillin-class Antibacterial Start: 04-15-2021 amoxicillin (AMOXIL) 500 MG capsule Indications: S/P TAVR (transcatheter aortic valve replacement) Take 4 capsules 30 to 60 minutes before dental procedure. 4 capsule 3 04/15/2021 Active aspirin 81 mg delayed release oral tablet (4 sources) Platelet Aggregation Inhibitor, Nonsteroidal Anti-inflammatory Drug Start: 11-27-2020 take 81 mg by mouth once daily 81 mg, Oral, DAILY, First dose on Thu11/27/20 at 0900 Do not crush or break. benazepril hydrochloride 40 mg oral tablet (3 sources) Angiotensin Converting Enzyme Inhibitor take 1 tablet by mouth once daily benazepril (LOTENSIN) 40 MG tablet Take 40 mg by mouth daily 0 Active bisacodyl 5 mg delayed release oral tablet (1 source) Stimulant Laxative Start: 11-26-2020 take 5 mg by mouth once daily as needed for constipation 5 mg, Oral, DAILY PRN, Constipation, Starting on Thu11/26/20 at 0910 First line therapy for constipation. Post-op clopidogrel 75 mg oral tablet (4 sources) P2Y12 Platelet Inhibitor Start: 11-27-2020 take 1 tablet by mouth once daily clopidogrel (PLAVIX) 75 MG tablet Take 1 tablet by mouth daily 30 tablet 2 11/27/2020 Active Completed/Discontinued Medications Medication Drug Class(es) Dates Sig (Normalized) Sig (Original) ceFAZolin (ANCEF) 3,000 mg in dextrose 5 % 100 mL IVPB (1 source) Start: 11-26-2020 End: 11-26-2020 ceFAZolin (ANCEF) 3,000 mg in dextrose 5 % 100 mL IVPB ibuprofen 200 mg oral tablet (1 source) Nonsteroidal Anti-inflammatory Drug End: 11-27-2020 take 1 tablet by mouth every six hours as needed for pain ibuprofen (ADVIL;MOTRIN) 200 MG tablet Take 200 mg by mouth every 6 hours as needed for Pain 0 11/27/2020 Discontinued (Stop Taking at Discharge) potassium chloride 20 meq powder for oral solution (4 sources) Start: 11-27-2020 End: 11-27-2020 20 mEq, Oral, DAILY, First dose on Thu11/27/20 at 0900 Dilute with at least 4 ounces of cold water. May further dilute if GI adverse effects occur. Problems Active Problems Problem Classification Problem Date Documented Da te Episodic/Chronic Disorders of lipid metabolism (2 sources) Mixed hyperlipidemia; Translations: [Mixed hyperlipidemia] Onset: 12-03-2022 Chronic Essential hypertension (5 sources) Essential hypertension; Translations: [Essential (primary) hypertension] Onset: 11-21-2020 11-21-2020 Chronic Heart valve disorders (9 sources) Nonrheumatic aortic (valve) stenosis; Translations: [Aortic valve disorders] Onset: 11-21-2020 Chronic Other endocrine disorders (2 sources) Testicular hypofunction; Translations: [Testicular hypofunction] Onset: 12-03-2022 Chronic Other nutritional; endocrine; and metabolic disorders (3 sources) Severe obesity; Translations: [Morbid (severe) obesity due to excess calories] Onset: 11-21-2020 11-21-2020 Chronic Residual codes; unclassified (3 sources) Obstructive sleep apnea syndrome; Translations: [Obstructive sleep apnea (adult) (pediatric)] Onset: 11-21-2020 11-21-2020 Chronic Residual codes; unclassified (1 source) Pain, unspecified; Translations: [Pain, unspecified] Onset: 06-30-2018 Thyroid disorders (2 sources) Hypothyroidism, unspecified; Translations: [Hypothyroidism, unspecified] Onset: 12-03-2022 Chronic Past or Other Problems Problem Classification Problem Date Documented Da te Episodic/Chronic Acute and unspecified renal failure (2 sources) Acute kidney failure, unspecified; Translations: [Acute kidney failure, unspecified] Onset: 01-12-2023 Episodic Fluid and electrolyte disorders (2 sources) Dehydration; Translations: [Dehydration] Onset: 01-12-2023 Episodic Headache; including migraine (2 sources) Headache disorder; Translations: [Other headache syndrome] Onset: 12-05-2020 12-05-2020 Episodic Immunizations and screening for infectious disease (2 sources) Encounter for screening for other viral diseases; Translations: [Encounter for screening for other viral diseases] Onset: 12-03-2022 Episodic Other screening for suspected conditions (not mental disorders or infectious disease) (2 sources) Encounter for screening for malignant neoplasm of prostate; Translations: [Encounter for screening for malignant neoplasm of prostate] Onset: 05-24-2023 Episodic Results Test Name Value Interpretation Reference Range Facil ity Vital Signs Date Time Vital Sign Value Performing Clinician Faci lity 11-27-2020 10:00-0400 Diastolic blood pressure 68 mm[Hg] Saran Day MD Work Phone: [facility] Work Phone: 11-27-2020 10:00-0400 Heart rate 47 /min Saran Rolle Work Phone: [facility] Work Phone: 11-27-2020 10:00-0400 Respiratory rate 15 /min Saran Rolle Work Phone: [facility] Work Phone: 11-27-2020 10:00-0400 SaO2% (BldA) [Mass fraction] 95 % Saran Day MD Work Phone: [facility] Work Phone: 11-27-2020 10:00-0400 Systolic blood pressure 90 mm[Hg] Saran Day MD Work Phone: [facility] Work Phone: 11-27-2020 04:00-0400 Body temperature 98.4 [degF] Saran Rolle Work Phone: [facility] Work Phone: 11-26-2020 05:51-0400 Body height 177.8 cm Saran Rolle Work Phone: [facility] Work Phone: 11-26-2020 05:51-0400 Body mass index (BMI) [Ratio] 44.05 kg/m2 Saran Day MD Work Phone: [facility] Work Phone: 11-26-2020 05:51-0400 Body weight 139.25 kg Saran Rolle Work Phone: [facility] Work Phone: Encounters Encounter Date Encounter Type Care Provider Facility Start: 07-27-2023 End: 08-01-2023 ambulatory AURY VIEIRA DO Facility:A Start: 07-27-2023 End: 08-01-2023 Encounter for general adult medical examination without abnormal findings AURY VIEIRA DO Facility:A Start: 01-12-2023 End: 01-17-2023 ambulatory RENALDO ORDONEZ BRE[employer]ER-[employer]ER Facility:A Start: 12-03-2022 End: 12-08-2022 ambulatory AURY VIEIRA DO Facility:A Start: 11-28-2021 End: 11-28-2021 Subsequent hospital visit by physician Marlen Rowe BRE[employer] - [employer] Work Phone: [facility] [address] Procedures Date Procedure Procedure Detail Performing Clinician Start: 11-28-2021 Echo tthrc r-t 2d w/wom-mode compl spec&colr d Marlen Rowe BRE[employer] - [employer] Work Phone: Start: 01-02-2021 Echo tthrc r-t 2d w/wom-mode compl spec&colr d Marlen Rowe BRE[employer]ER - [employer] Work Phone: Start: 11-27-2020 Echo tthrc r-t 2d w/wom-mode compl spec&colr d Marlen Rowe BRE[employer]ER - [employer] Work Phone: Start: 11-27-2020 Ecg routine ecg w/least 12 lds w/i&r Marlen Rowe BRE[employer] - [employer] Work Phone: Start: 11-27-2020 Basic metabolic panel calcium total Marlen Rowe BRE[employer] - [employer] Work Phone: Start: 11-26-2020 Basic metabolic panel calcium total Marlen Rowe BRE[employer] - [employer] Work Phone: Start: 11-26-2020 Ecg routine ecg w/least 12 lds w/i&r Marlen Rowe BRE[employer]ER - [employer] Work Phone: Start: 11-26-2020 Echocardiography Saran Rolle Work Phone: Start: 11-26-2020 OPERATIVE REPORT 3m Scanning Plan of Treatment Date Care Activity Detail Author Start: 03-17-2030 DTaP/Tdap/Td vaccine (2 - Td or Tdap) DTaP/Tdap/Td vaccine (2 - Td or Tdap) [facility] Start: 03-17-2030 DTaP/Tdap/Td vaccine (2 - Td) DTaP/Tdap/Td vaccine (2 - Td) [facility] Work Phone: Start: 03-13-2022 Influenza vaccination Flu vacc ine (Season Ended) [facility] Start: 11-27-2021 Creatinine measurement Creatinine mo nitoring [facility] Work Phone: Start: 11-27-2021 Potassium monitoring Potassium monit oring [facility] Work Phone: Start: 01-02-2021 End: 01-02-2021 Evaluation and management of inpatient 01/02/2021 Office Visit Cardiology Marlen Rowe, BREASTER - [employer] [address] [place] [address] [phone] [facility] Start: 12-05-2020 End: 12-05-2020 Evaluation and management of inpatient 12/05/2020 Office Visit Cardiology Marlen Rowe, BREASTER - [employer] [address] [place] [address] [phone] [facility] Start: 2018 Pneumococcal 65+ yea rs Vaccine (1 - PCV) Pneumococcal 65+ years Vaccine (1 - PCV) [facility] Start: 2018 Pneumococcal 65+ yea rs Vaccine (1 of 1 - PPSV23) Pneumococcal 65+ years Vaccine (1 of 1 - PPSV23) [facility] Work Phone: Start: 02-22-2015 Shingles Vaccine (2 of 3) Shingles V accine (2 of 3) [facility] Start: 09-17-2003 Prostate specific an tigen measurement PSA counseling [facility] Work Phone: Start: 09-17-2003 Screening for malign ant neoplasm of colon Colon cancer screen colonoscopy [facility] Work Phone: Start: 1998 Screening for malign ant neoplasm of colon [facility] Start: 1993 Lipid panel [facility] Start: 1993 Prostate specific an tigen measurement Prostate Specific Antigen (PSA) Screening or Monitoring [facility] Start: 09-17-1971 Hepatitis C screening Hepatitis C sc reen [facility] Start: 1965 Depression Screen Depression Screen [facility] Start: 1958 COVID-19 Vaccine (1) COVID-19 Vaccin e (1) [facility] Start: 1953 Hepatitis C screening Hepatitis C sc reen [facility] Work Phone: Basic metabolic 2000 panel - Serum or Plasma Basic Metabolic Panel Lab Routine Daily until discontinued starting 11/26/2020, 2 completed [facility] Work Phone: Payers Date Payer Category Payer Unknown [id number] 1955 Unknown [id number] 1955 Unknown [id number] 1955 Unknown [id number] Social History Date Type Detail Facility Start: 10-24-2020 End: 11-26-2020 Tobacco smoking status NHIS Former smoker [facility] Work Phone: History of tobacco use Pipe Smoker [facility] History of tobacco use Cigar Smoker [facility] Start: 10-24-2020 End: 11-26-2020 Tobacco use and exposure Never used [facility] Start: 11-26-2020 End: 01-02-2021 Alcohol intake Ex-drinker (finding) [facility] Work Phone: Start: 1955 Sex Assigned At Not on file [facility] Work Phone: Exposure to SARS-CoV -2 (event) Not sure [facility] Hospital Discharge instructions 11-26-2020 Instructions Note Date & Type Note Facility 11-26-2020 Hospital Discharg e instructions Marlen Rowe, TUNG - HAND UPPER AND BOTTOM LACER - 11/26/2020 - Please call the [facility] with any questions: [phone] -You will have have the following follow up appointments in the [facility]: one week post procedure, one month post procedure with echocardiogram, one year post procedure with echocardiogram. -Wash groin/wrist incision with soap and water, pat dry. Apply bandage for 5 days. If you have a chest incision, you will receive specific instructions from your surgeon regarding care of the incision. -Check incision every day. If you see any changes in the way it looks, call the [facility] at . Look for any of these problems: redness and warmth that does not go away, yellow or green drainage from the wound, fever and chills, numbness in your legs, pain that is getting worse. -It is normal to have a bruise or soft lump in the groin. This will get smaller and go away with time -Do not drive until after your first [facility] Appointment. -Do not lift, push, or pull anything weighing more than 5 lbs or more for one week if you had the procedure through your groin and 4 weeks if you had the procedure through the chest -We strongly encourage a regular exercise program such as cardiac rehabilitation once you have been cleared to resume normal activity. -Eating well is important for your recovery. Eat nutritious foods every day. Please follow a cardiac, 2 gram sodium diet. Please continue to follow any other dietary recommendations provided by your health care provider prior to your valve surgery. -From now on, tell your doctors and health care providers about your heart valve implantation (prosthetic heart valve ). -If you go to the emergency room or are admitted to the hospital during the first year after your procedure, please call the [facility] at -If you have major dental work or other invasive medical procedures (like surgery) you may need to take antibiotics before the dental work or the procedure. Please discuss with your health care provider. - You will need to take blood thinning medications(antiplatelet) after your valve procedure. Generally, this includes aspirin and clopidogrel. The clopidogrel will be for 3 months and the aspirin will be indefinite. documented in this encounter [facility] Work Phone: Evaluation note Note Date & Type Note Facility documented in this encounter [facility] Work Phone: Evaluation note Note Date & Type Note Facility documented in this encounter [facility] Work Phone: Evaluation note Note Date & Type Note Facility documented in this encounter [facility] Work Phone: Summary Purpose Family History No Family History Records FoundNo Family History Records FoundNo Family History Records Found Advance Directives No Advanced Directives Records FoundLatest Code Status on File Code Status Date Activated Date Inactivated Comments Full Code 11/26/2020 9:10 AM Full Code 11/26/2020 5:46 AM 11/26/2020 8:59 AM Latest Code Status on File Code Status Date Activated Date Inactivated Comments Full Code 11/26/2020 9:10 AM 11/27/2020 4:31 PM Full Code 11/26/2020 5:46 AM 11/26/2020 8:59 AM Reason for Referral Status Reason Specialty Diagnoses / Procedures Referre d By Contact Referred To Contact Closed Cardiology Diagnoses Aortic stenosis, severe Procedures ECHO Complete 2D W Doppler W Color Marlen Rowe, BREASTER - HAND [employer]OTT[employer]ER [address] [place] [address] Specialty Diagnoses / Procedures Referred By Contac t Referred To Contact Cardiology Diagnoses Aortic valve stenosis, etiology of cardiac valve disease unspecified Procedures ECHO Complete 2D W Doppler W Color Marlen Rowe, BREASTER - HAND [employer] BOTTOM LACER [address] [facility] [address] [place] [address] Referral ID Status Reason Start Date Expiration Date Visits Re quested Visits Authorized [id number] Closed 11/02/2021 11/02/2022 1 1 Additional Source Comments (unrecognized sect ion and content) No Status Records FoundNo Status Records FoundNo Status Records Found INFORMATION SOURCE (unrecogn ized section and content) DATE CREATED AUTHOR AUTHOR'S ORGANIZ ATION 11/29/2021 [facility] DATE CREATED AUTHOR AUTHOR'S ORGANIZ ATION 08/07/2023 [facility] ([place]) Ordered Prescriptions (unrec ognized section and content) Scheduled Active and Recently Administ ered Medications (unrecognized section and content) Continuous Medication Order 11/25/2020 11/26/2020 11/27/2020 0.9 % sodium chloride infusion (CANCELED) Intravenous, at 50 mL/hr, CONTINUOUS, Starting on Thu11/26/20 at 0615, Upon admission to sameday - please start iv if patient does not have iv access., Pre-op (day of surgery) 0604 (New Bag - Provider: Keisha Womack, BRITTANEY)0905 (Stopped - Provider: Michelle Barnett, BRITTANEY) 0.9 % sodium chloride infusion Intravenous, at 25 mL/hr, CONTINUOUS, Starting on Thu11/26/20 at 0615, Pre-op (day of surgery) 0923 (New Bag - Provider: Michelle Barnett, RN)1330 (Stopped - Provider: Michelle Barnett RN) PRN Medication Order 11/25/2020 11/26/2020 11/27/2020 acetaminophen (TYLENOL) tablet 650 mg 650 mg, Oral, EVERY 4 HOURS PRN, Pain Mild (1-3), Fever, Fever >100.5 F (38 C), Starting on Thu11/26/20 at 0910, Maximum dose of acetaminophen is 4000 mg from all sources in 24 hours., Post-op 1345 (Given - Provider: Michelle Barnett, BRITTANEY)2125 (Given - Provider: Kena Sheehan RN) 0604 (Given - Provider: LIDIA DAWKINS) bisacodyl (DULCOLAX) EC tablet 5 mg 5 mg, Oral, DAILY PRN, Constipation, Starting on Thu11/26/20 at 0910, First line therapy for constipation., Post-op perflutren lipid microspheres (DEFINITY) injection 1.65 mg 1.65 mg (1.5 mL), Intravenous, IMG ONCE PRN, Other, Suboptimal Echo Image, Starting on Thu11/26/20 at 0643, For 72 hours, Administer up to 1.65 mg via slow IVP for suboptimal echocardiogram enhancement. May administer as concentrated dose or diluted in 8.5 mL of 0.9% sodium chloride for a total volume of 10 mL. May administer as divided doses to reach optimal image enhancement. perflutren lipid microspheres (DEFINITY) injection 1.65 mg 1.65 mg (1.5 mL), Intravenous, IMG ONCE PRN, Other, Suboptimal Echo Image, Starting on Thu11/26/20 at 0910, For 72 hours, Administer up to 1.65 mg via slow IVP for suboptimal echocardiogram enhancement. May administer as concentrated dose or diluted in 8.5 mL of 0.9% sodium chloride for a total volume of 10 mL. May administer as divided doses to reach optimal image enhancement. 1151 (Given - Provid er: Michelle Barnett RN) sodium chloride flush 0.9 % injection 5-40 mL 5-40 mL, Intravenous, PRN, Line Care, Per [employer] Vice President [employer] (Ex ) Request, Starting on Thu11/26/20 at 0643, For 72 hours, May use order for Line Care after every IV line use and Agitated Saline Bubble Study. Administration for Bubble Study per farm tractor mechanic request for only. Remove 1 mL 0.9% sodium chloride from 10 mL syringe for creating agitated saline. If following IV push medication, administer flush at same rate as the IV push. Flush volume is determined by type of infusion therapy being given. , For non-viscous solutions use: Peripheral IV = 5 mL Midline or Central Line = 10 mL/lumen For viscous solutions (i.e. blood components, parenteral nutrition, contrast media, or after obtaining blood sample) use: Peripheral IV = 10 mL Midline or Central Line = 20 mL/lumen sodium chloride flush 0.9 % injection 5-40 mL 5-40 mL, Intravenous, PRN, Line Care, Per [employer]. Vice President [employer] (Ex ) Request, Starting on Thu11/26/20 at 0910, For 72 hours, May use order for Line Care after every IV line use and Agitated Saline Bubble Study. Administration for Bubble Study per farm tractor mechanic request for only. Remove 1 mL 0.9% sodium chloride from 10 mL syringe for creating agitated saline. If following IV push medication, administer flush at same rate as the IV push. Flush volume is determined by type of infusion therapy being given. , For non-viscous solutions use: Peripheral IV = 5 mL Midline or Central Line = 10 mL/lumen For viscous solutions (i.e. blood components, parenteral nutrition, contrast media, or after obtaining blood sample) use: Peripheral IV = 10 mL Midline or Central Line = 20 mL/lumen Reason for Visit (unrecogniz ed section and content) Care Teams (unrecognized sec tion and content) FOR RECORDS PERTAINING TO PATIENTS WHO ARE OR HAVE BEEN ENROLLED IN A CHEMICAL DEPENDENCY/SUBSTANCEABUSE PROGRAM, SOME INFORMATION MAY BE OMITTED. This clinical summary was aggregated from multiple sources. Caution should be exercised in using it in the provision of clinical care. This summary normalizes information from multiple sources, and as a consequence, information in this document may materially change the coding, format and clinical context of patient data. In addition, data may be omitted in some cases. CLINICAL DECISIONS SHOULD BE BASED ON THE PRIMARY CLINICAL RECORDS. [facility]. provides no warranty or guarantee of the accuracy or completeness of information in this document.
[2023-09-10 23:51] VITALS: PULSE 71
[2023-09-10 23:51] LABS: AST(SGOT) 33 U/L (15-37); Alanine Aminotransfer ALT/SGPT 29 U/L (16-61); Albumin, Serum 3.8 g/dL (3.2-5.0); Alkaline Phosphatase 87 U/L (45-117); Anion Gap 4 (5-15); BUN 30 mg/dL (7-18); BUN/Creat Ratio 25.4 RATIO (10-20); Bilirubin, Direct 0.15 mg/dL (0.00-0.30); Calcium,Total 9.3 mg/dL (8.5-10.1); Chloride 106 mmol/L (98-107); Creatinine, Serum 1.18 mg/dL (0.70-1.30); EST Glomerular Filtration Rate 65 mL/min (>60); Est Glom Filt Rate - Afr Amer 79 mL/min (>60); Estimated Creatinine Clearance 81.17 ml/min; Globulin 3.9 g/dL (2.2-4.2); Glucose 85 mg/dL (74-106); Lipase 23 U/L (13-75); Potassium 4.2 mmol/L (3.5-5.1); Protein, Total 7.7 g/dL (6.4-8.2); Sodium Level 141 mmol/L (136-145); Troponin-I HS 175 pg/mL (3.0-78.0)
[2023-09-10 23:52] LABS: D-Dimer Quantitative (DVT/PE) 0.85 FEU/ug/m (0.27-0.49)
[2023-09-11 00:16] LABS: International Normalized Ratio 1.1; Prothrombin Time (Protime)PT. 13.9 SECONDS (11.7-14.9)
[2023-09-11 00:18] LABS: Partial Thromboplast Time 40.7 Seconds (24.1-36.2)
[2023-09-11] MEDS: 0.9% Normal Saline (1000mL) 1,000 ML 999 ML IV (00:18)
[2023-09-11 00:51] VITALS: PULSE 70
[2023-09-11 01:51] VITALS: PULSE 70; RESP 18; O2SAT 94
[2023-09-11 02:10] LABS: Troponin-I HS 180 pg/mL (3.0-78.0)
--- NOTE | 2023-09-11 02:15 | PCM.HP.STD ---
HPI - General General Date of Admission: 09/11/23 Date of Service: 09/11/23 Chief Complaint: Chest Pain. HPI Narrative YOHANA MARTINEZ, is a 67 M who presents REPLACED BY [facility] Medical History Arthritis Back pain Blepharitis of left lower eyelid Bradycardia with 41-50 beats per minute Cancer Cardiology follow-up encounter Chalazion left lower eyelid Colonic polyp Coronary artery disease COVID-19 virus detected (08/03/21) CPAP (continuous positive airway pressure) dependence Disc degeneration, lumbar Dyslipidemia Elevated troponin Elevated troponin Essential (primary) hypertension Fatigue Former smoker Gastric reflux Hay fever Hiatal hernia Hiatal hernia High cholesterol History of echocardiogram History of hepatitis C History of hiatal hernia History of stress test History of transesophageal echocardiography (CHIKA) Hypertension Hypogonadism in male Hypoxemia Knee pain Left shoulder pain Leg cramps Lower GI bleed Morbid obesity with BMI of 45.0-49.9, adult Myasthenia gravis Nonobstructive atherosclerosis of coronary artery Nonrheumatic aortic (valve) stenosis Obstructive sleep apnea Osteoarthritis of left hip Prostate cancer Rheumatoid arthritis Shoulder pain Sleep apnea Wears glasses Home Medications furosemide 40 mg tablet 40 mg PO DAILY diuretic/water pill 02/14/15 [History Last Taken 06/11/22] niacin 500 mg tablet 500 mg PO QHS supplement 02/14/15 [History Last Taken 06/11/22] omega-3 acid ethyl esters 1 gram capsule 2 gm PO DAILY supplement 02/14/15 [History Last Taken 12/02/22] potassium chloride 20 mEq tablet,extended release(part/cryst) 20 meq PO DAILY supplement 02/14/15 [History Last Taken 06/11/22] testosterone cypionate 100 mg/mL intramuscular oil 1 ml IM Q14D hormone 02/14/15 [History Last Taken 06/11/22] folic acid 800 mcg tablet 0.8 mg PO DAILY supplement 03/09/17 [History Last Taken 06/11/22] lisdexamfetamine 50 mg capsule 60 mg PO DAILY ADHD 03/09/17 [History Last Taken 06/11/22] benazepril 40 mg tablet 40 mg PO DAILY blood pressure 07/12/19 [History Last Taken 06/12/22 04:45] ergocalciferol (vitamin D2) 1,250 mcg (50,000 unit) capsule 50,000 unit PO Q7D supplement 08/19/20 [History Last Taken 06/11/22] pregabalin 100 mg capsule 100 mg PO TID pain 01/25/21 [History Last Taken 06/11/22] sildenafil 100 mg tablet 100 mg PO DAILY PRN Erectile Dysfunction 11/04/21 [History Last Taken 06/11/22] calcium 600 mg capsule 1,200 mg PO DAILY supplement 06/26/22 [History Last Taken Unknown] aspirin 81 mg tablet,delayed release 81 mg PO DAILY 12/03/22 [History Last Taken 12/02/22] vitamin [id number] B1 5.5 mg-12.5 mcg/5 mL oral liquid 1 ml PO BID 12/03/22 [History Last Taken Unknown] acetaminophen 500 mg tablet 1,000 mg PO Q8 PRN pain 12/04/22 [History Last Taken Unknown] ascorbic acid (vitamin C) 1,000 mg capsule 1 g PO DAILY 05/12/23 [History Last Taken Unknown] levothyroxine 50 mcg tablet 50 mcg PO DAILY 05/12/23 [History Last Taken Unknown] Allergy/AdvReac Type Severity Reaction Status Date / Time hydromorphone HCl Allergy nausea, Verified 09/10/23 22:53 [From Dilaudid] confusion Family History Mother Skin cancer Surgical History H/O laminectomy H/O total knee replacement History of appendectomy History of back surgery History of cardiac catheterization History of carpal tunnel release History of cataract surgery History of colonoscopy History of elbow surgery History of hip replacement (~2021) History of knee surgery History of left heart catheterization (08/20/20) History of lumbar surgery History of shoulder surgery History of transcatheter aortic valve replacement (TAVR) (11/26/20) Social History household members: spouse current occupational status: employed Smoking Status: Former smoker alcohol intake: never Vital Signs Vital Signs Vital Signs: 09/10/23 22:51 09/10/23 22:51 Temperature 98.3 F Temperature Source Temporal Pulse Rate 77 Respiratory Rate 20 H Respiratory Effort Normal Non-Labored Blood Pressure 163/83 H Blood Pressure Mean 109 Pulse Ox 95 Oxygen Delivery Method Room Air Weight Weight: 309 lb 2 oz Body Mass Index (BMI) 47.0 Results Lab / Micro Data 09/10/23 23:08 09/10/23 23:08 Labs: Laboratory Results - last 24 hr 09/10/23 23:08: WBC 8.4, RBC 5.61, Hgb 17.0 H, Hct 51.8, MCV 92.3, MCH 30.3, MCHC 32.8, RDW Std Deviation 46.1 H, RDW Coeff of Shahzad 13.5, Plt Count 276, MPV 10.5, Immature Gran % (Auto) 0.500, Neut % (Auto) 65.3, Lymph % (Auto) 23.6, [place] % (Auto) 6.2, Eos % (Auto) 2.8, Baso % (Auto) 1.6 H, Absolute Neuts (auto) 5.5, Absolute Lymphs (auto) 1.97, Nucleated RBC % 0, PT 13.9, INR 1.1, APTT 40.7 H, D-Dimer Quant (PE/DVT) 0.85 H*, Sodium 141, Potassium 4.2, Chloride 106, Carbon Dioxide 31.0, Anion Gap 4 L, BUN 30 H, Creatinine 1.18, Estim Creat Clear Calc 81.17, Est GFR (MDRD) Af Amer 79, Est GFR (MDRD) Non-Af 65, BUN/Creatinine Ratio 25.4 H, Glucose 85, Calcium 9.3, Total Bilirubin 0.70, Direct Bilirubin 0.15, AST 33, ALT 29, Alkaline Phosphatase 87, Troponin I High Sens 175 H*, Total Protein 7.7, Albumin 3.8, Globulin 3.9, Lipase 23 09/11/23 01:25: Troponin I High Sens 180 H* Imaging Radiology Impression Chest X-Ray 09/10/23 23:21 IMPRESSION: No acute findings in the chest. Electronically Signed: Nadeem Middleton MD at 23:59 EST , Chest CTA 09/11/23 23:50 IMPRESSION: No pulmonary embolism or other acute abnormality identified in the chest. Electronically Signed: Nadeem Middleton MD at 0:38 EST ,
[2023-09-11 02:33] VITALS: BP 112/62; PULSE 73; RESP 16; TEMP 36.6; O2SAT 96
--- NOTE | 2023-09-11 23:50 | CT_ITS ---
EXAM: CT ANGIOGRAPHY CHEST WITHOUT AND WITH INTRAVENOUS CONTRAST CLINICAL INDICATION: chest pain with elevated d-dimer TECHNIQUE: Helically acquired angiography images were obtained of the chest without and with intravenous contrast. This CT exam was performed using one or more of the following dose reduction techniques: automated exposure control, adjustment of the mA and/or kV according to patient size, and/or use of iterative reconstruction technique. MIP reconstructed images were created and reviewed. CONTRAST: IV 100mL Isovue-370 RADIATION DOSE: CTDIvol = 26.91 mGy, DLP = 533.42 mGy-cm COMPARISON: CTA chest 06/26/2022 FINDINGS: PULMONARY ARTERIES: Unremarkable. Normal in caliber. No evidence of pulmonary embolism. AORTA: Surgical changes at the aortic root. No aortic injury or dissection. GREAT VESSELS OF AORTIC ARCH: Unremarkable. Normal in caliber. No evidence of dissection. LUNGS AND PLEURAL SPACES: Bibasilar dependent atelectasis. No mass. No pleural effusion or thickening. No pneumothorax. HEART: Coronary artery calcifications. Heart size is normal. No pericardial effusion. MEDIASTINUM: Unremarkable. No mediastinal or hilar adenopathy. Esophagus is unremarkable. No hiatal hernia. THYROID: Unremarkable. No thyroid lesions. BONES/JOINTS: Degenerative changes of the spine. No suspicious lytic or blastic abnormality. LIVER: Simple cyst in the liver. No follow-up imaging is recommended per consensus recommendations based on imaging criteria. CT/CTA Chest W/WO Contrast IMPRESSION: No pulmonary embolism or other acute abnormality identified in the chest. Electronically Signed: Nadeem Middleton MD at 0:38 EST ,
== END 2023-09-11 02:35 | disposition home or self-care (01) ==
PROVIDERS: Emergency Provider Emergency Medicine; PCP Family Medicine; Visit Provider Emergency Medicine
DX: I25.10 Atherosclerotic heart disease of native coronary artery without angina pectoris (principal); I10 Essential (primary) hypertension; E78.00 Pure hypercholesterolemia, unspecified; Z95.2 Presence of prosthetic heart valve; Z79.82 Long term (current) use of aspirin; Z79.899 Other long term (current) drug therapy; Z86.16 Personal history of COVID-19; Z87.891 Personal history of nicotine dependence
CPT/HCPCS: 71046; 71275; 80048; 80076; 83690; 84484; 85025; 85379; 85610; 85730; 93005; 96360; 96361; 99283; J7030; Q9967; A4216

== ENCOUNTER 2023-09-24 08:10 | Emergency (ER) | payer BC, SELFPAY ==
[2023-09-24 08:11] VITALS: BP 123/64; PULSE 67; RESP 18; TEMP 37.1; O2SAT 95; BMI 44.7
--- NOTE | 2023-09-24 08:22 | EDS_ITS ---
HPI HPI - Fall History of Present Illness Chief Complaint: Fall Informant: patient Occured/Mechanism Occurred: Today Mechanism/Context: Yes same level fall and Yes slip Pain/Injury Location: Neck and back Pain Location: neck and back Quality of Pain: Dull, Aching and - (Spasm) Worsened by: Movement Relieved by: Nothing Associated Symptoms Associated Symptoms: Positive for Parasthesias; Negative for Weakness, Loss of function, Inability to ambulate, Loss of consciousness or Amnesia Narrative Narrative: Patient presents with neck and back pain that began after a fall earlier this morning. Patient states she was getting into the shower when he accidentally stepped on something and fell backwards. Patient states he landed on his back. Patient states his pain is over the lumbar and thoracic area. Patient states the pain feels like it goes into spasms. Patient states his dull and aching. Patient states he took 2 Tylenol and pregabalin with no relief. Patient states she tried to lay down and go to sleep but was unable to sleep because of the pain and spasm. Patient also admits to some pain in his neck. Patient admits to some tingling in the fingers of his left hand. Patient denies any weakness. Patient denies hitting his head or having any loss of consciousness. Patient denies any other injuries. [facility] Medical History Arthritis Back pain Blepharitis of left lower eyelid Bradycardia with 41-50 beats per minute Cancer Cardiology follow-up encounter Chalazion left lower eyelid Colonic polyp Coronary artery disease COVID-19 virus detected (08/03/21) CPAP (continuous positive airway pressure) dependence Disc degeneration, lumbar Dyslipidemia Elevated troponin Elevated troponin Essential (primary) hypertension Fatigue Former smoker Gastric reflux Hay fever Hiatal hernia Hiatal hernia High cholesterol History of echocardiogram History of hepatitis C History of hiatal hernia History of stress test History of transesophageal echocardiography (CHIKA) Hypertension Hypogonadism in male Hypoxemia Knee pain Left shoulder pain Leg cramps Lower GI bleed Morbid obesity with BMI of 45.0-49.9, adult Myasthenia gravis Nonobstructive atherosclerosis of coronary artery Nonrheumatic aortic (valve) stenosis Obstructive sleep apnea Osteoarthritis of left hip Prostate cancer Rheumatoid arthritis Shoulder pain Sleep apnea Wears glasses Home Medications furosemide 40 mg tablet 40 mg PO DAILY diuretic/water pill 02/14/15 [History Last Taken 06/11/22] niacin 500 mg tablet 500 mg PO QHS supplement 02/14/15 [History Last Taken 06/11/22] omega-3 acid ethyl esters 1 gram capsule 2 gm PO DAILY supplement 02/14/15 [History Last Taken 12/02/22] potassium chloride 20 mEq tablet,extended release(part/cryst) 20 meq PO DAILY supplement 02/14/15 [History Last Taken 06/11/22] testosterone cypionate 100 mg/mL intramuscular oil 1 ml IM Q14D hormone 02/14/15 [History Last Taken 06/11/22] folic acid 800 mcg tablet 0.8 mg PO DAILY supplement 03/09/17 [History Last Taken 06/11/22] lisdexamfetamine 50 mg capsule 60 mg PO DAILY ADHD 03/09/17 [History Last Taken 06/11/22] benazepril 40 mg tablet 40 mg PO DAILY blood pressure 07/12/19 [History Last Taken 06/12/22 04:45] ergocalciferol (vitamin D2) 1,250 mcg (50,000 unit) capsule 50,000 unit PO Q7D supplement 08/19/20 [History Last Taken 06/11/22] pregabalin 100 mg capsule 100 mg PO TID pain 01/25/21 [History Last Taken ] sildenafil 100 mg tablet 100 mg PO DAILY PRN Erectile Dysfunction 11/04/21 [History Last Taken 06/11/22] calcium 600 mg capsule 1,200 mg PO DAILY supplement 06/26/22 [History Last Taken Unknown] aspirin 81 mg tablet,delayed release 81 mg PO DAILY 12/03/22 [History Last Taken 12/02/22] vitamin [id number] B1 5.5 mg-12.5 mcg/5 mL oral liquid 1 ml PO BID 12/03/22 [History Last Taken Unknown] acetaminophen 500 mg tablet 1,000 mg PO Q8 PRN pain 12/04/22 [History Last Taken Unknown] ascorbic acid (vitamin C) 1,000 mg capsule 1 g PO DAILY 05/12/23 [History Last Taken Unknown] levothyroxine 50 mcg tablet 50 mcg PO DAILY 05/12/23 [History Last Taken Unknown] diclofenac sodium 1 % topical gel (Voltaren Arthritis Pain) 2 g topical ONCE PRN 09/18/23 [History Last Taken Unknown] cyclobenzaprine 10 mg tablet 10 mg PO QHS PRN PRN Muscle Spasm #10 TABLETS 09/24/23 [Rx Last Taken Unknown] hydrocodone-acetaminophen 5-325mg 5mg-325mg 1 tab PO Q6H PRN PRN Pain 3 days #10 TABLETS 09/24/23 [Rx Last Taken Unknown] Allergy/AdvReac Type Severity Reaction Status Date / Time hydromorphone HCl Allergy nausea, Verified 09/24/23 08:11 [From Dilaudid] confusion Family History Mother Skin cancer Surgical History H/O laminectomy H/O total knee replacement History of appendectomy History of back surgery History of cardiac catheterization History of carpal tunnel release History of cataract surgery History of colonoscopy History of elbow surgery History of hip replacement (~2021) History of knee surgery History of left heart catheterization (08/20/20) History of lumbar surgery History of shoulder surgery History of transcatheter aortic valve replacement (TAVR) (11/26/20) Social History household members: spouse current occupational status: employed Smoking Status: Former smoker alcohol intake: never ROS ROS ED Constitutional Constitutional ED: Denies chills or fever(s) Eyes Eyes: Denies blurry vision or change in vision ENT ENT ED: Denies rhinorrhea or sore throat Cardiovascular Cardiovascular: Denies chest pain or palpitations Respiratory/Chest Respiratory/Chest: Denies cough or dyspnea Gastrointestinal Gastrointestinal: Denies nausea or vomiting Genitourinary Genitourinary ED: Denies dysuria or hematuria Musculoskeletal Musculoskeletal: Reports back pain and neck pain Integumentary Denies abscess or rash Neurologic Neurologic: Denies headache(s) or weakness Allergic/Immunologic Allergic/Immunologic ED: Denies mouth swelling or urticaria EXAM Physical Exam Const Vital Signs: 09/24/23 08:11 09/24/23 08:16 09/24/23 09:41 Temperature 98.7 F Temperature Source Oral Pulse Rate 67 62 Respiratory Rate 18 18 Respiratory Effort Normal Non-Labored Respiratory Depth Normal Respiratory Pattern Normal Blood Pressure 123/64 H 116/65 Blood Pressure Mean 83 82 Pulse Ox 95 95 Oxygen Delivery Method Room Air Room Air Nasal Cannula 09/24/23 11:00 09/24/23 12:50 Temperature Temperature Source Pulse Rate 71 Respiratory Rate 16 Respiratory Effort Respiratory Depth Respiratory Pattern Blood Pressure 96/54 L 98/68 Blood Pressure Mean 68 78 Pulse Ox 96 Oxygen Delivery Method Nasal Cannula Positive well nourished, well developed and obese General Appearance ED: well developed and NAD Nutritional Appearance: obese HEENT Reports normocephalic atraumatic Neck Neck Narrative: There is tenderness over the cervical spine and paraspinal muscles. Cervical collar is in place. There is no bony crepitance or step-off noted. Chest Wall palpation of chest normal Resp normal respiratory effort and clear to auscultation bilaterally Cardio regular rate and regular rhythm GI non-tender and non-distended Palpation: soft Back/Spine Thoracic Spine / Upper Back: ROM limited Lumbar Spine / Lower Back: lumbar spinal tenderness and paraspinal muscle tenderness Neuro oriented x3, CN's II-XII intact bilaterally, moves all extremities, no focal motor deficits and no sensory deficits noted Harshad Coma Scale: document GCS findings Spontaneous Obeys Commands Oriented 15 Sensorium / Orientation: alert Motor Exam: strength 5/5 throughout Psych mental status grossly normal MDM MDM MDM Narrative Medical decision making narrative: Differential diagnosis includes cervical spine fracture, thoracic spine fracture, lumbar fracture, and muscle strain. CT scan of the cervical spine will be obtained to assess for cervical spine fracture. X-rays of the thoracic spine will be obtained to assess for thoracic spine fracture. X-rays of the lumbar spine will be obtained to assess for lumbar spine fracture. Radiography Diagnostic Testing: Clinical Impression(s) from Imaging Studies Cervical Spine CT 09/24/23 09:21 IMPRESSION: Multilevel degenerative changes, as described above. Electronically Signed: Agustín Escudero MD at 10:36 EDT , Lumbar Spine X-Ray 09/24/23 09:21 IMPRESSION: Degenerative changes of the spine, as detailed above. Straightening of the normal lumbar lordosis. Electronically Signed: Agustín Escudero MD at 12:31 EDT , Thoracic Spine X-Ray 09/24/23 09:21 IMPRESSION: Increased kyphosis. Multilevel spondylosis and disc space narrowing. Electronically Signed: Agustín Escudero MD at 10:38 EDT , CT scan of the cervical spine was obtained. There are degenerative changes noted. There is no acute fracture or spondylolisthesis. This was interpreted by the radiologist and was also independently reviewed by myself. X-rays of the thoracic spine were obtained. There are 3 views. On my independent interpretation, there is no acute fracture or spondylolisthesis. There are some degenerative changes noted. Radiologist also interpreted the x- rays and agrees. X-rays of the lumbar spine were obtained. There are 3 views. On my independent interpretation, there are degenerative changes. There is no acute fracture or spondylolisthesis noted. Radiologist also interpreted the x-rays and agrees. Treatment and Re-Evaluation Narrative: Patient was given injection of morphine here. Patient was advised of his findings. Patient was given a prescription for a short course of [place]. Patient was also given a prescription for Flexeril. Patient was instructed to follow-up with his primary care physician in 5 to 7 days. Patient understood and was agreeable with the plan. All questions were answered. Discharge Plan Triage Chief Complaint: Fall ED Provider: Akbar Ewing Dx/Rx/DC Orders Clinical Impression: Acute thoracic myofascial strain, Fall, Acute lumbosacral myofascial strain Instructions: ED Back Sprain/Strain, ED Thoracic Spine Strain Prescriptions: New cyclobenzaprine [cyclobenzaprine] 10 mg tablet 10 mg PO QHS PRN PRN (Reason: Muscle Spasm) Qty: 10 0RF hydrocodone-acetaminophen [hydrocodone-acetaminophen] 5-325 mg tablet 1 tab PO Q6H PRN PRN (Reason: Pain) 3 Days Qty: 10 0RF No Action pregabalin 100 mg capsule 100 mg PO TID Patient Comments: TAKE 1 CAPSULE BY MOUTH 3 TIMES A DAY sildenafil 100 mg tablet 100 mg PO DAILY PRN (Reason: Erectile Dysfunction) levothyroxine 50 mcg tablet 50 mcg PO DAILY ascorbic acid (vitamin C) 1,000 mg capsule 1 g PO DAILY diclofenac sodium [Voltaren Arthritis Pain] 1 % gel 2 g topical ONCE PRN Rx Instructions: apply to single elbow, wrist or hand; for hand includes palm/fingers/back of hand furosemide 40 MG tablet 40 mg PO DAILY testosterone cypionate 100 MG/ML oil 1 ml IM Q14D potassium chloride 20 MEQ tablet 20 meq PO DAILY omega-3 acid ethyl esters 1 GM capsule 2 gm PO DAILY niacin 500 MG tablet 500 mg PO QHS folic acid 0.8 MG tablet 0.8 mg PO DAILY lisdexamfetamine 50 MG capsule 60 mg PO DAILY Patient Comments: TAKE ONE CAPSULE BY MOUTH EVERY DAY benazepril 40 MG tablet 40 mg PO DAILY ergocalciferol (vitamin D2) 50,000 UNIT capsule 50,000 unit PO Q7D Rx Instructions: on sundays calcium 600 mg Capsule 1,200 mg PO DAILY acetaminophen 500 mg tablet 1,000 mg PO Q8 PRN (Reason: pain) aspirin 81 mg tablet,delayed release (DR/EC) 81 mg PO DAILY vitamin [id number] B1 5.5-12.5 mg-mcg/5 mL Liquid 1 ml PO BID Primary Care Provider: Chun Schneider Referrals: Chun Schneider DO [Primary Care Provider] - 3-5 Days Disposition Disposition: Home, Self Care
--- NOTE | 2023-09-24 08:29 | ED.RN ---
pt fell asleep and o2 sat drops to 82%. oxygen placed via nasal cannula at 3L
--- NOTE | 2023-09-24 09:21 | CT_ITS ---
STUDY: CT CERVICAL SPINE WITHOUT CONTRAST REASON FOR EXAM: Male, 68 years old. Injury/Pain due to a fall. RADIATION DOSAGE (If Supplied By Facility): CTDIvol = ( 25.55 ) mGy, DLP = ( 524.84 ) mGycm TECHNIQUE: High resolution transaxial imaging was performed without contrast material. Sagittal and coronal images were reconstructed. Individualized dose optimization techniques were used for this CT. COMPARISON: None FINDINGS: Normal craniovertebral junction. There are degenerative changes of the anterior atlantoaxial articulation. Normal odontoid process. Normal cervical lordosis. Normal vertebral bodies and posterior osseous elements. C2-3: Facet joint osteoarthritis and hypertrophy. Uncovertebral arthrosis. Bilateral neural foraminal stenosis worse on the right side. C3-4: Mild disc space narrowing and spondylosis. Uncovertebral arthrosis with a moderate degree of right neural foraminal stenosis. Hypertrophy of the facet joints. C4-5: Facet joint osteoarthritis. C5-6: Marked degree of disc space narrowing and spondylosis. Uncovertebral arthrosis. Moderate to severe degree of right neural foraminal stenosis. Moderate left neural foraminal stenosis. C6-7: Facet joint osteoarthritis and hypertrophy. Uncovertebral arthrosis. Bilateral neural foraminal stenosis more prominent on the right side. C7-T1: Normal endplates. Normal disc height and morphology. Normal central canal and intervertebral neuroforamina. Normal visualized soft tissue structures. CT/Spine Cervical without Contras IMPRESSION: Multilevel degenerative changes, as described above. Electronically Signed: Agustín Escudero MD at 10:36 EDT ,
--- NOTE | 2023-09-24 09:21 | RAD_ITS ---
STUDY: X-RAY - LUMBAR SPINE REASON FOR EXAM: Male, 68 years old. Injury/Pain TECHNIQUE: 3 view(s) of the lumbar spine were obtained. COMPARISON: None FINDINGS: There is straightening of the normal lumbar lordosis. There is no substantial scoliosis. There is a normal alignment of the vertebrae. There is multilevel endplate spondylosis of the lumbar vertebrae. There is multi-level degenerative disc disease with multi-level disc space narrowing. There is atherosclerotic calcification of the abdominal aorta without a demonstrated aneurysm. RAD/Lumbar Spine 2 or 3 Views IMPRESSION: Degenerative changes of the spine, as detailed above. Straightening of the normal lumbar lordosis. Electronically Signed: Agustín Escudero MD at 12:31 EDT ,
--- NOTE | 2023-09-24 09:21 | RAD_ITS ---
STUDY: X-RAY - THORACIC SPINE REASON FOR EXAM: Male, 68 years old. Injury/Pain due to a fall. TECHNIQUE: 3 view(s) of the thoracic spine were obtained. COMPARISON: None. FINDINGS: There is an increase in the normal thoracic kyphosis. There is no substantial scoliosis. There is multilevel endplate spondylosis of the thoracic vertebrae. There is multilevel disc space narrowing of the thoracic spine. The soft tissue structures are unremarkable. RAD/Thoracic Spine 3 Views IMPRESSION: Increased kyphosis. Multilevel spondylosis and disc space narrowing. Electronically Signed: Agustín Escudero MD at 10:38 EDT ,
[2023-09-24] MEDS: Morphine 4 MG/ML Syringe IM (09:38)
[2023-09-24 09:41] VITALS: BP 116/65; PULSE 62; RESP 18; O2SAT 95
[2023-09-24 11:00] VITALS: BP 96/54; PULSE 71; RESP 16; O2SAT 96
[2023-09-24 12:50] VITALS: BP 98/68
[2023-09-24 13:17] VITALS: BP 107/60; PULSE 68; RESP 16; TEMP 36.4; O2SAT 94
== END 2023-09-24 13:18 | disposition home or self-care (01) ==
PROVIDERS: Emergency Provider Emergency Medicine; PCP Family Medicine; Visit Provider Emergency Medicine
DX: S29.019A Strain of muscle and tendon of unspecified wall of thorax, initial encounter (principal); S39.012A Strain of muscle, fascia and tendon of lower back, initial encounter; I25.10 Atherosclerotic heart disease of native coronary artery without angina pectoris; G47.33 Obstructive sleep apnea (adult) (pediatric); E66.9 Obesity, unspecified; W18.30XA Fall on same level, unspecified, initial encounter; Z87.891 Personal history of nicotine dependence; Z86.16 Personal history of COVID-19
CPT/HCPCS: 72072; 72100; 72125; 96372; 99282

== ENCOUNTER → 2023-10-13 | Outpatient (CLI) | payer BC, SELFPAY ==
--- NOTE | 2023-10-13 13:52 | STRESSREP ---
Stress Test Report Pharmacologic myocardial perfusion stress test. 68-year-old man with a history of previous TAVR Resting EKG demonstrates sinus rhythm with a rate of 70 bpm. Resting blood pressure is 136/80 mmHg. 0.4 mg of regadenoson was infused per usual protocol followed by rapid intravenous saline flush injection. Continuous EKG monitoring was performed. The maximum heart rate was 93 bpm which was 62 of max impacted heart rate the maximum workload was 1 metabolic equivalent. At rest there were no ST or T wave changes noted to suggest ischemia and at peak infusion nonspecific ST changes were noted which did not meet the criteria for ischemia. No clinical angina is noted. The final blood pressure was 122/60 mmHg. Myocardial perfusion protocol. 14.9 mCi of technetium 99m sestamibi was injected at rest. 0.4 mg of regadenoson was infused per usual protocol. At peak infusion 44.6 mCi of technetium 99m sestamibi was injected stress images were obtained stress and rest images were reconstructed and compared in the short axis vertical long and horizontal long axis. Gated images were also obtained. Perfusion SPECT analysis: Review of the stress images demonstrate normal uptake of tracer noted in all areas of the myocardium with a defect noted in the basal inferior wall. The resting images there is a similar pattern also noted. A previous basal inferior infarct cannot be completely excluded. No ischemia is noted. Gated SPECT analysis: The gated ejection fraction is 62%. Conclusion: Normal pharmacologic myocardial perfusion stress test. Preserved ejection fraction. Basal inferior infarct is noted with no ischemia
== END | disposition home or self-care (01) ==
PROVIDERS: PCP Family Medicine; Referring Provider Nurse Practitioner Gerontology; Visit Provider Nurse Practitioner Gerontology
DX: I21.19 ST elevation (STEMI) myocardial infarction involving other coronary artery of inferior wall (principal); Z95.2 Presence of prosthetic heart valve
CPT/HCPCS: 78452; 93017; A9500; A4216; J2785

== ENCOUNTER → 2023-10-23 | Outpatient (CLI) | payer BC, SELFPAY ==
--- NOTE | 2023-10-23 09:55 | ECHOCS_ITS ---
Reason For Study: CP, ASHD/CAD Procedure This was a 2D Doppler, Color Flow transthoracic echocardiogram. The study was technically difficult. Contrast injection was performed. Exam performed in department. Left Ventricle Normal LV size. Left ventricular systolic function is normal. The estimated ejection fraction is 60 %. Stage 1 diastolic dysfunction. No regional wall motion abnormalities noted. Right Ventricle Normal RV size. Normal systolic function. Mitral Valve There is mild to moderate mitral annular calcification. Tricuspid Valve Normal tricuspid valve. Mild tricuspid valve insufficiency. Pulmonary artery systolic pressure is 25 mmHg. Aortic Valve Peak aortic valve gradient 60 mmHg. Mean aortic valve gradient 31 mmHg. Bioprosthetic aortic valve. Pulmonic Valve Normal pulmonic valve. Great Vessels Normal aortic root. Pericardium/Pleural No pericardial effusion. Medication 22 gauge I.V. with prn adaptor inserted into right arm. Diluted definity 1.5ml given slow IV push to enhance endocardial definition. MMode/2D Measurements & Calculations RVDd: 4.7 cm LVOT diam: 1.7 cm LA dimension: 5.7 cm LVOT area: 2.3 cm2 LAV(MOD-bp): 107.8 ml LA A4 area: 29.9 cm2 RA A4 area: 21.8 cm2 LAV(MOD-bp) Indexed: 44.1 ml/m2 LAV(MOD-sp2): 103.7 ml LAV(MOD-sp4): 112.9 ml TAPSE: 2.4 cm Time Measurements MV dec time: 0.37 sec Doppler Measurements & Calculations MV E max jimmy: 78.2 cm/sec Lat Peak E' Jimmy: 7.4 cm/sec Med Peak E' Jimmy: 6.2 cm/sec MV A max jimmy: 100.6 cm/sec E/E' lat: 10.6 E/E' med: 12.7 MV E/A: 0.78 MV V2 max: 152.0 cm/sec MV P1/2t max jimmy: 152.0 cm/sec Ao V2 max: 387.3 cm/sec MV max P.3 mmHg MV P1/2t: 133.5 msec Ao max P.0 mmHg MV V2 mean: 76.9 cm/sec MV dec slope: 333.5 cm/sec2 Ao V2 mean: 256.4 cm/sec MV mean P.0 mmHg Ao mean P.6 mmHg MV V2 VTI: 54.4 cm MVA(P1/2t): 1.6 cm2 Ao V2 VTI: 87.0 cm MVA(VTI): 1.6 cm2 AV (velocity ratio): 0.43 ANGELICA(I,D): 0.98 cm2 ANGELICA(V,D): 0.93 cm2 LV V1 max: 155.9 cm/sec MR max jimmy: 553.0 cm/sec SV(LVOT): 85.7 ml LV V1 max P.7 mmHg MR max P.3 mmHg LV V1 mean P.4 mmHg LV V1 mean: 107.3 cm/sec LV V1 VTI: 37.0 cm TR max jimmy: 233.6 cm/sec TR max P.8 mmHg ECHO/Echo Complete W/ Contrast Interpretation Summary Normal LV size. Left ventricular systolic function is normal. The estimated ejection fraction is 60 %. Stage 1 diastolic dysfunction. Mean aortic valve gradient 31 mmHg. Bioprosthetic aortic valve. Compared to the previous the bioprosthetic aortic valve gradient appears to be more elevated. Contrast injection was performed. Ordering Physician: Brittani Graham Referring Physician: Brittani Graham Performed By: Dean Glynn RCS
== END | disposition home or self-care (01) ==
PROVIDERS: PCP Family Medicine; Referring Provider Nurse Practitioner Gerontology; Visit Provider Nurse Practitioner Gerontology
DX: R07.9 Chest pain, unspecified (principal); I25.119 Atherosclerotic heart disease of native coronary artery with unspecified angina pectoris; Z95.2 Presence of prosthetic heart valve
CPT/HCPCS: 93306; Q9957; A4216; C8929

== ENCOUNTER 2024-01-30 16:48 | Emergency (ER) | payer BC, SELFPAY ==
[2024-01-30] VITALS (7 sets, daily range): BP systolic 90–148; BP diastolic 54–78; PULSE 71–90; RESP 16–18; TEMP 36.3–36.6; O2SAT 82–99; BMI 42.1
--- NOTE | 2024-01-30 17:08 | CT_ITS ---
INDICATION: left flank pain EXAMINATION: CT Abdomen And Pelvis W/O Contrast Injection TECHNIQUE: Helically acquired images were obtained of the abdomen and pelvis without the use of IV contrast. A radiation dose optimization technique was used for this scan. Oral contrast: None. COMPARISON: None FINDINGS: Evaluation of the solid organs and vascular structures is limited without intravenous contrast. Visualized lung bases: Unremarkable Liver: 3.5 cm simple cyst in the liver. Gallbladder: Few small intraluminal stones seen. Spleen: Unremarkable Pancreas: Unremarkable Adrenal Glands: Unremarkable Kidneys: Unremarkable Vasculature: Severe aortoiliac atherosclerotic disease. GI Tract: Unremarkable Lymphadenopathy: None Peritoneum: No ascites. Bladder: Unremarkable Reproductive organs: Status post hysterectomy. Bones/Soft tissues: There are diffuse degenerative changes of the spine. Large fat-containing umbilical hernia. Left total hip arthroplasty. CT/Abdomen/Pelvis without Cont IMPRESSION: No acute abnormalities in the abdomen or pelvis. Large fat-containing umbilical hernia. Electronically Signed: Jaya Villafana MD at 18:38 EDT ,
--- NOTE | 2024-01-30 17:10 | EDS_ITS ---
HPI <HELEN Nagy - Last Filed: 01/30/24 20:32> History of Present Illness Chief Complaint: Flank Pain Narrative Narrative: 5-year-old male with past medical history of HTN, HLD, TAVR, kidney stones has had 2 to 3 days of left flank pain that waxes and wanes. It worsened about 20 minutes prior to arrival while he was leaving work. 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 He has noticed urinary urgency but no burning or hematuria. No fever or chills. <Kd Johnston MD - Last Filed: 01/30/24 21:01> Narrative Narrative: 68-year-old male with past medical history of HTN, HLD, TAVR, kidney stones has had 2 to 3 days of left flank pain that waxes and wanes. It worsened about 20 minutes prior to arrival while he was leaving work. 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 He has noticed urinary urgency but no burning or hematuria. No fever or chills. PFSH <HELEN Nagy - Last Filed: 01/30/24 20:32> PFSH Medical History Arthritis Back pain Blepharitis of left lower eyelid Bradycardia with 41-50 beats per minute Cancer Cardiology follow-up encounter Chalazion left lower eyelid Colonic polyp Coronary artery disease COVID-19 virus detected (08/03/21) CPAP (continuous positive airway pressure) dependence Disc degeneration, lumbar Dyslipidemia Elevated troponin Elevated troponin Essential (primary) hypertension Fatigue Former smoker Gastric reflux Hay fever Hiatal hernia Hiatal hernia High cholesterol History of echocardiogram History of hepatitis C History of hiatal hernia History of stress test History of transesophageal echocardiography (CHIKA) Hypertension Hypogonadism in male Hypoxemia Knee pain Left shoulder pain Leg cramps Lower GI bleed Morbid obesity with BMI of 45.0-49.9, adult Myasthenia gravis Nonobstructive atherosclerosis of coronary artery Nonrheumatic aortic (valve) stenosis Obstructive sleep apnea Osteoarthritis of left hip Prostate cancer Rheumatoid arthritis Shoulder pain Sleep apnea Wears glasses Home Medications ?Medication ?Instructions ?Recorded ?Last Taken ?Type furosemide 40 mg tablet 40 mg PO DAILY diuretic/water pill 02/14/15 06/11/22 History niacin 500 mg tablet 500 mg PO QHS supplement 02/14/15 06/11/22 History omega-3 acid ethyl esters 1 gram 2 gm PO DAILY supplement 02/14/15 12/02/22 History capsule potassium chloride 20 mEq 20 meq PO DAILY supplement 02/14/15 06/11/22 History tablet,extended release(part/cryst) testosterone cypionate 100 mg/mL 1 ml IM Q14D hormone 02/14/15 06/11/22 History intramuscular oil folic acid 800 mcg tablet 0.8 mg PO DAILY supplement 03/09/17 06/11/22 History lisdexamfetamine 50 mg capsule 60 mg PO DAILY ADHD 03/09/17 06/11/22 History benazepril 40 mg tablet 40 mg PO DAILY blood pressure 07/12/19 06/12/22 04:45 History ergocalciferol (vitamin D2) 1,250 50,000 unit PO Q7D supplement 08/19/20 06/11/22 History mcg (50,000 unit) capsule pregabalin 100 mg capsule 100 mg PO TID pain 01/25/21 06/11/22 History sildenafil 100 mg tablet 100 mg PO DAILY PRN Erectile 11/04/21 06/11/22 History Dysfunction calcium 600 mg capsule 1,200 mg PO DAILY supplement 06/26/22 Unknown History aspirin 81 mg tablet,delayed 81 mg PO DAILY 12/03/22 12/02/22 History release vitamin [id number] B1 5.5 mg-12.5 1 ml PO BID 12/03/22 Unknown History mcg/5 mL oral liquid acetaminophen 500 mg tablet 1,000 mg PO Q8 PRN pain 12/04/22 Unknown History ascorbic acid (vitamin C) 1,000 mg 1 g PO DAILY 05/12/23 Unknown History capsule levothyroxine 50 mcg tablet 50 mcg PO DAILY 05/12/23 Unknown History diclofenac sodium 1 % topical gel 2 g topical ONCE PRN 09/18/23 Unknown History (Voltaren Arthritis Pain) cyclobenzaprine 10 mg tablet 10 mg PO QHS PRN PRN Muscle Spasm 09/24/23 Unknown Rx #10 TABLETS hydrocodone-acetaminophen 5-325mg 1 tab PO Q6H PRN PRN Pain 3 days 09/24/23 Unknown Rx 5mg-325mg #10 TABLETS Allergy/AdvReac Type Severity Reaction Status Date / Time hydromorphone HCl (From Allergy nausea, Verified 01/30/24 16:48 Dilaudid) confusion Family History (Reviewed 09/18/23 @ 09:05 by Brittani Graham [employer], [employer]) Mother Skin cancer Surgical History H/O laminectomy H/O total knee replacement History of appendectomy History of back surgery History of cardiac catheterization History of carpal tunnel release History of cataract surgery History of colonoscopy History of elbow surgery History of hip replacement (~2021) History of knee surgery History of left heart catheterization (08/20/20) History of lumbar surgery History of shoulder surgery History of transcatheter aortic valve replacement (TAVR) (11/26/20) Social History household members: spouse current occupational status: employed Smoking Status: Never smoker alcohol intake: never ROS <HELEN Nagy - Last Filed: 01/30/24 20:32> ROS ED ROS Narrative Constitutional: Negative for fever, chills, malaise. CVS: Negative for chest pain. Respiratory: Negative for shortness of breath. GI: Positive for nausea. Negative for abdominal pain, vomiting, diarrhea, constipation, melena, hematochezia. : Negative for dysuria, hematuria. EXAM <HELEN Nagy - Last Filed: 01/30/24 20:32> Physical Exam Narrative Exam Narrative: CONST: Patient sitting in no acute distress, diaphoretic. EYES: Normal inspection. NECK: Normal inspection. RESP: No respiratory distress, CTAB. CVS: Regular rate and rhythm, no murmur, no gallop. ABD: Soft and nontender, no guarding or rebound, nondistended. Back: Normal inspection, left CVA tenderness. SKIN: Color normal, no rash, warm, dry, intact. EXTREMITIES: Normal appearance, no pedal edema. NEURO: Alert and answering questions appropriately. PSYCH: Normal affect. Const Vital Signs: 01/30/24 16:48 01/30/24 16:52 01/30/24 17:37 Temperature 97.6 F L 97.6 F L Temperature Source Temporal Tympanic Pulse Rate 90 76 Respiratory Rate 18 16 Blood Pressure 148/78 H 90/54 L Blood Pressure Mean 101 66 Pulse Ox 96 94 82 Oxygen Delivery Method Room Air Room Air Room Air Oxygen Flow Rate (L/min) 01/30/24 17:37 01/30/24 17:52 01/30/24 18:00 Temperature 97.8 F 97.8 F Temperature Source Tympanic Tympanic Pulse Rate 77 77 Respiratory Rate 16 16 Blood Pressure 90/54 L 90/54 L Blood Pressure Mean 66 66 Pulse Ox 95 98 98 Oxygen Delivery Method Nasal Cannula Room Air Room Air Oxygen Flow Rate (L/min) 2 3 3 01/30/24 19:00 01/30/24 20:00 Temperature 97.4 F L 97.6 F L Temperature Source Tympanic Oral Pulse Rate 71 74 Respiratory Rate 16 16 Blood Pressure 91/62 102/54 L Blood Pressure Mean 71 70 Pulse Ox 99 98 Oxygen Delivery Method Room Air Room Air Oxygen Flow Rate (L/min) <Kd Johnston MD - Last Filed: 01/30/24 21:01> Physical Exam Const Vital Signs: 01/30/24 16:48 01/30/24 16:52 01/30/24 17:37 Temperature 97.6 F L 97.6 F L Temperature Source Temporal Tympanic Pulse Rate 90 76 Respiratory Rate 18 16 Blood Pressure 148/78 H 90/54 L Blood Pressure Mean 101 66 Pulse Ox 96 94 82 Oxygen Delivery Method Room Air Room Air Room Air Oxygen Flow Rate (L/min) 01/30/24 17:37 01/30/24 17:52 01/30/24 18:00 Temperature 97.8 F 97.8 F Temperature Source Tympanic Tympanic Pulse Rate 77 77 Respiratory Rate 16 16 Blood Pressure 90/54 L 90/54 L Blood Pressure Mean 66 66 Pulse Ox 95 98 98 Oxygen Delivery Method Nasal Cannula Room Air Room Air Oxygen Flow Rate (L/min) 2 3 3 01/30/24 19:00 01/30/24 20:00 Temperature 97.4 F L 97.6 F L Temperature Source Tympanic Oral Pulse Rate 71 74 Respiratory Rate 16 16 Blood Pressure 91/62 102/54 L Blood Pressure Mean 71 70 Pulse Ox 99 98 Oxygen Delivery Method Room Air Room Air Oxygen Flow Rate (L/min) MDM <HELEN Nagy - Last Filed: 01/30/24 20:32> MDM MDM Narrative Medical decision making narrative: History from: Patient and spouse Differential: Musculoskeletal flank pain, kidney stone, pyelonephritis, dehydration 68-year-old male was evaluated for a few days of intermittent left flank pain. 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 He initially was in his work close and was diaphoretic but otherwise well appearing. Vital signs stable. On exam he has dry mucous membranes and left CVA tenderness. Labs show normal white count of 6.4. Electrolytes are within normal limits but there is an acute kidney injury with BUN of 37, creatinine 2.01 (previously 1.18). Urinalysis is negative. CT of the abdomen/pelvis shows no acute abnormalities. After IV morphine and Zofran he became transiently hypotensive and hypoxic and was placed on 3 L. After 2 L IV fluids his vital signs have normalized and his pain is improved. I am not sure of the etiology of his flank pain but he is comfortable taking Tylenol at home. I advised increase fluids and to see his PCP to have his BMP rechecked in the next few days. He is off work for the next few days and will rest. He was discharged in stable condition. Lab Data Attestation: I reviewed the patient's lab results. Labs: Laboratory Results - last 24 hr 01/30/24 01/30/24 17:25 19:04 WBC 6.4 RBC 4.85 Hgb 14.6 Hct 43.1 MCV 88.9 MCH 30.1 MCHC 33.9 RDW Std Deviation 41.8 RDW Coeff of Shahzad 13.0 Plt Count 321 MPV 10.0 Immature Gran % (Auto) 0.300 Neut % (Auto) 61.4 Lymph % (Auto) 27.0 Graves % (Auto) 7.2 Eos % (Auto) 2.7 Baso % (Auto) 1.4 H Absolute Neuts (auto) 3.9 Absolute Lymphs (auto) 1.73 Nucleated RBC % 0 Sodium 138 Potassium 5.0 Chloride 105 Carbon Dioxide 27.0 Anion Gap 6 BUN 37 H Creatinine 2.01 H Estim Creat Clear Calc 45.58 Est GFR (MDRD) Af Amer 42 L Est GFR (MDRD) Non-Af 35 L BUN/Creatinine Ratio 18.4 Glucose 98 Calcium 9.4 Urine Color Yellow Urine Clarity Clear Urine pH 6.5 Ur Specific [place] 1.015 Urine Protein 15 H Urine Glucose (UA) Normal Urine Ketones Negative Urine Occult Blood Negative Urine Nitrite Negative Urine Bilirubin Negative Urine Urobilinogen Normal Ur Leukocyte Esterase Negative Urine RBC 0 SEEN Urine WBC 0 SEEN Ur Squamous Epith Cells 5-10 SEEN Urine Bacteria 1+ Hyaline Casts 5-10 SEEN Urine Mucus 0 SEEN Radiography Diagnostic Testing: Clinical Impression(s) from Imaging Studies Abdomen/Pelvis CT 01/30/24 17:08 IMPRESSION: No acute abnormalities in the abdomen or pelvis. Large fat-containing umbilical hernia. Electronically Signed: Jaya Villafana MD at 18:38 EDT , <Kd Johnston MD - Last Filed: 01/30/24 21:01> [facility] Narrative Medical decision making narrative: History from: Patient and spouse Differential: Musculoskeletal flank pain, kidney stone, pyelonephritis, dehydration 68-year-old male was evaluated for a few days of intermittent left flank pain. 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 He initially was in his work close and was diaphoretic but otherwise well appearing. Vital signs stable. On exam he has dry mucous membranes and left CVA tenderness. Labs show normal white count of 6.4. Electrolytes are within normal limits but there is an acute kidney injury with BUN of 37, creatinine 2.01 (previously 1.18). Urinalysis is negative. CT of the abdomen/pelvis shows no acute abnormalities. After IV mo rphine and Zofran he became transiently hypotensive and hypoxic and was placed on 3 L. After 2 L IV fluids his vital signs have normalized and his pain is improved. I am not sure of the etiology of his flank pain but he is comfortable taking Tylenol at home. I advised increase fluids and to see his PCP to have his BMP rechecked in the next few days. He is off work for the next few days and will rest. He was discharged in stable condition. Dr. Johnston: I have personally performed a face to face assessment of the patient and have reviewed the DENISE Note. I performed a substantive portion of the visit including all aspects of the following. My stanley findings include: History is left flank pain, history of kidney stones. Exam is afebrile. Vital signs noted. Regular rate and rhythm. Lungs clear to auscultation bilaterally. Abdomen soft nontender with normal active bowel sounds. No CVA tenderness to percussion. Medical Decision Making: Differential diagnosis includes ureterolithiasis versus pyelonephritis versus diverticulitis. I have low suspicion for diverticulitis because the history and physical does not support this. Check labs. Check urinalysis. Check CT scan. In review of his laboratory work, he has acute kidney injury with elevated creatinine of 2.01. He was bolused 2 L of normal saline. Urinalysis negative for infection. I reviewed the radiology report of the CT of the abdomen and pelvis without contrast which shows no acute process, no evidence of ureterolithiasis. Patient will be discharged to follow-up with his primary care provider, drink plenty of fluids and have his creatinine rechecked. Disposition is discharged in stable condition. Other additions or changes: [None] History & Record Review Discussion w/independent historian: Patient Lab Data Labs: Laboratory Results - last 24 hr 01/30/24 01/30/24 17:25 19:04 WBC 6.4 RBC 4.85 Hgb 14.6 Hct 43.1 MCV 88.9 MCH 30.1 MCHC 33.9 RDW Std Deviation 41.8 RDW Coeff of Shahzad 13.0 Plt Count 321 MPV 10.0 Immature Gran % (Auto) 0.300 Neut % (Auto) 61.4 Lymph % (Auto) 27.0 Graves % (Auto) 7.2 Eos % (Auto) 2.7 Baso % (Auto) 1.4 H Absolute Neuts (auto) 3.9 Absolute Lymphs (auto) 1.73 Nucleated RBC % 0 Sodium 138 Potassium 5.0 Chloride 105 Carbon Dioxide 27.0 Anion Gap 6 BUN 37 H Creatinine 2.01 H Estim Creat Clear Calc 45.58 Est GFR (MDRD) Af Amer 42 L Est GFR (MDRD) Non-Af 35 L BUN/Creatinine Ratio 18.4 Glucose 98 Calcium 9.4 Urine Color Yellow Urine Clarity Clear Urine pH 6.5 Ur Specific [place] 1.015 Urine Protein 15 H Urine Glucose (UA) Normal Urine Ketones Negative Urine Occult Blood Negative Urine Nitrite Negative Urine Bilirubin Negative Urine Urobilinogen Normal Ur Leukocyte Esterase Negative Urine RBC 0 SEEN Urine WBC 0 SEEN Ur Squamous Epith Cells 5-10 SEEN Urine Bacteria 1+ Hyaline Casts 5-10 SEEN Urine Mucus 0 SEEN Radiography Diagnostic Testing: Clinical Impression(s) from Imaging Studies Abdomen/Pelvis CT 01/30/24 17:08 IMPRESSION: No acute abnormalities in the abdomen or pelvis. Large fat-containing umbilical hernia. Electronically Signed: Jaya Villafana MD at 18:38 EDT , Discharge Plan Triage Chief Complaint: Flank Pain ED Midlevel Provider: Kayla Gan ED Provider: Kd Johnston Dx/Rx/DC Orders Clinical Impression: Acute kidney injury, Left flank pain, Acute dehydration Instructions: Acute Kidney Failure Dc, ED Flank Pain, Uncertain Cause Prescriptions: No Action pregabalin 100 mg capsule 100 mg PO TID Patient Comments: TAKE 1 CAPSULE BY MOUTH 3 TIMES A DAY sildenafil 100 mg tablet 100 mg PO DAILY PRN (Reason: Erectile Dysfunction) levothyroxine 50 mcg tablet 50 mcg PO DAILY ascorbic acid (vitamin C) 1,000 mg capsule 1 g PO DAILY diclofenac sodium [Voltaren Arthritis Pain] 1 % gel 2 g topical ONCE PRN Rx Instructions: apply to single elbow, wrist or hand; for hand includes palm/fingers/back of hand furosemide 40 MG tablet 40 mg PO DAILY testosterone cypionate 100 MG/ML oil 1 ml IM Q14D potassium chloride 20 MEQ tablet 20 meq PO DAILY omega-3 acid ethyl esters 1 GM capsule 2 gm PO DAILY niacin 500 MG tablet 500 mg PO QHS folic acid 0.8 MG tablet 0.8 mg PO DAILY lisdexamfetamine 50 MG capsule 60 mg PO DAILY Patient Comments: TAKE ONE CAPSULE BY MOUTH EVERY DAY benazepril 40 MG tablet 40 mg PO DAILY ergocalciferol (vitamin D2) 50,000 UNIT capsule 50,000 unit PO Q7D Rx Instructions: on sundays calcium 600 mg Capsule 1,200 mg PO DAILY acetaminophen 500 mg tablet 1,000 mg PO Q8 PRN (Reason: pain) aspirin 81 mg tablet,delayed release (DR/EC) 81 mg PO DAILY vitamin [id number] 5.5-12.5 mg-mcg/5 mL Liquid 1 ml PO BID cyclobenzaprine [cyclobenzaprine] 10 mg tablet 10 mg PO QHS PRN PRN (Reason: Muscle Spasm) Qty: 10 0RF hydrocodone-acetaminophen [hydrocodone-acetaminophen] 5-325 mg tablet 1 tab PO Q6H PRN PRN (Reason: Pain) 3 Days Qty: 10 0RF Primary Care Provider: Chun Schneider Referrals: Chun Schneider, [Primary Care Provider] - Activity Restrictions/Additional Instructions: I am not sure what is causing your left flank pain but you can continue Tylenol and use heat or ice as needed. You had acute kidney injury today likely from dehydration. Drink plenty of fluids and see your primary care doctor in the next 3 to 5 days to have your kidneys rechecked (BMP). Print Language: Guatemalan Disposition Disposition: Home, Self Care Discharge Date/Time: 01/30/24 20:22
[2024-01-30] MEDS: Morphine 4 MG/ML Syringe IV (17:21)
[2024-01-30] MEDS: 0.9% Normal Saline (1000mL) 1,000 ML 999 ML IV ×2 (17:21→19:00)
[2024-01-30] MEDS: Ondansetron 4 MG/2 ML Vial IV (17:21)
[2024-01-30 17:33] LABS: Absolute Lymphocyte Count 1.73 X10^3/uL (0.83-4.51); Absolute Neutrophil Count 3.9 X10^3/uL (2.0-7.7); Basophil# 0.09 X10^3/uL; Basophil% 1.4 % (0-1); Eosinophil# 0.17 X10^3/uL; Eosinophils% 2.7 % (0-5); Hematocrit 43.1 % (40-54); Hemoglobin 14.6 g/dL (13.0-16.5); Lymphocyte # 1.73 X10^3/ul (0.83-4.51); Mean Corp Hgb Conc 33.9 g/dL (32-36); Mean Corpuscular Hgb 30.1 pg (27.0-32.0); Mean Corpuscular Volume 88.9 fL (80-94); Monocyte# 0.46 X10^3/uL; Monocyte% 7.2 % (0-10); NRBC Flagged by Analyzer 0 % (0-5); Neutrophil # 3.93 X10^3/uL (2.7-7.7); Neutrophil % 61.4 % (47-70); Platelet Count 321 K/mm3 (150-450); RBC Distribution Width SD 41.8 fl (35.1-43.9); Red Blood Count 4.85 M/mm3 (4.6-6.2); White Blood Count 6.4 K/mm3 (4.4-11.0)
[2024-01-30 17:52] LABS: Anion Gap 6 (5-15); BUN 37 mg/dL (7-18); BUN/Creat Ratio 18.4 RATIO (10-20); Calcium,Total 9.4 mg/dL (8.5-10.1); Chloride 105 mmol/L (98-107); Creatinine, Serum 2.01 mg/dL (0.70-1.30); EST Glomerular Filtration Rate 35 mL/min (>60); Est Glom Filt Rate - Afr Amer 42 mL/min (>60); Estimated Creatinine Clearance 45.58 ml/min; Glucose 98 mg/dL (74-106); Sodium Level 138 mmol/L (136-145)
[2024-01-30 19:07] LABS: Mucous, Urine 0 SEEN /hpf (<or=2+); Red Blood Cells-Urine 0 SEEN /hpf (0-5); White Blood Cells 0 SEEN /hpf (0-5)
[2024-01-30 19:16] LABS: Color, Urine Yellow (Yellow); Glucose, Dipstick Normal (Normal); Ketone-Dipstick Negative (Negative); Leukocyte Esterase-Dipstick Negative /ul (Negative); Nitrite-Dipstick Negative (Negative); Occult Blood-Urine Negative /ul (Negative); Protein-Dipstick 15 mg/dl (Negative); Specific Gravity, Urine 1.015 (1.002-1.030); Urine Bilirubin Dipstick Negative (Negative); Urine Clarity Clear (Clear); Urine Urobilinogen Normal (Normal); Urine pH 6.5 (5.0 - 8.0)
[2024-01-30 19:46] LABS: Hyaline Cast 5-10 SEEN /lpf (0-5); Squamous Epithelial Cells - UA 5-10 SEEN /hpf (0-5)
[2024-01-30 19:47] LABS: Bacteria 1+ /hpf (None Seen)
== END 2024-01-30 20:22 | disposition home or self-care (01) ==
PROVIDERS: Physician Assistant; Emergency Provider Emergency Medicine; PCP Family Medicine; Visit Provider Emergency Medicine
DX: R10.9 Unspecified abdominal pain (principal); N17.9 Acute kidney failure, unspecified; E86.0 Dehydration; I10 Essential (primary) hypertension; E78.00 Pure hypercholesterolemia, unspecified; I25.10 Atherosclerotic heart disease of native coronary artery without angina pectoris; Z79.82 Long term (current) use of aspirin; Z79.899 Other long term (current) drug therapy; Z86.16 Personal history of COVID-19
CPT/HCPCS: 74176; 80048; 81001; 85025; 96361; 96374; 96375; 99283; J7030; A4216; J2405

== ENCOUNTER → 2024-01-30 | Outpatient (CLI) | payer BC, SELFPAY ==
--- NOTE | 2024-01-30 21:05 | RAD_ITS ---
ACR Level 3 findings have been noted. An addendum which confirms receipt of the report will follow. EXAM: XR LEFT FOOT COMPLETE, 3 OR MORE VIEWS CLINICAL INDICATION: OSTEOMYELITIS. 2ND DIGIT. TECHNIQUE: Frontal, lateral and oblique views of the left foot. COMPARISON: No relevant prior studies available. FINDINGS: BONES/JOINTS: The toes are curled on frontal and oblique views and partially overlapping the lateral view. The tips at the distal phalanges are not well demonstrated on frontal and oblique views. Irregular contour and lack of continuous cortical margin along the tip of the second terminal tuft on the frontal view and discontinuous cortical bone on the lateral view. Thickened appearance of the fifth proximal phalanx suspected to be due to old healed fracture. Preservation of the joint space. No sclerotic or destructive changes observed. SOFT TISSUES: Unremarkable. No radiopaque foreign body. No soft tissue gas. VASCULATURE: Advanced arterial calcification at the ankle-posterior foot. OTHER FINDINGS: Flattened arch. RAD/Foot min 3 Views IMPRESSION: 1. Small irregular cortical erosions at the tip of the terminal tuft second digit. Seen on frontal and lateral views. 2. Highly suspicious for early osteomyelitis involving the terminal tuft of the second toe in the appropriate clinical setting. 3. Soft tissue swelling. 4. Consider additional evaluation such as MRI or bone scan if thought to be indicated. Electronically Signed: Layla Manrique MD at 6:01 EDT ,
== END | disposition home or self-care (01) ==
PROVIDERS: PCP Family Medicine; Visit Provider Podiatrist Foot & Ankle Surgery
DX: M86.9 Osteomyelitis, unspecified (principal)
CPT/HCPCS: 73630

== ENCOUNTER 2024-02-10 13:00 | Outpatient (RCR) | payer BC, SELFPAY ==
[2024-01-27 08:14] VITALS: BP 113/64; PULSE 65; RESP 18; TEMP 36.7
--- NOTE | 2024-01-27 08:47 | PCM.WC.PN ---
History of Present Illness Date of Service: 01/27/24 Chief Complaint: Left second digit ulcer History of Wound: Left second digit ulcer referred by Burton Fay for evaluation and possible surgery Progress of Wound: The patient's left second digit distal ulceration is present due to rigid contracture of the hammertoe. Patient was seen by outside provider placed on oral antibiotics. Presenting to the wound care center today for evaluation and treatment for the ulceration Subjective Subjective Mr. Gonzales is a 68-year-old nondiabetic male presented wound care center today for follow-up evaluation of full-thickness ulceration to the distal aspect of left second digit. Patient is on Bactrim DS for 7 days and will need an additional 7 days since he will need a 2-week treatment. Culture was taken today in the office and we will get her antibiotic treatment to what grows back for microbiology. 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 He has a rigid contracture of the PIPJ of the left second digit causing rubbing in his steel toed boots. He is here for treatment evaluation. Denies trauma. Denies constitutional symptoms. No other pedal complaints at this time. Objective Data Objective Data Vital Signs: Vital Signs Temp Pulse Resp BP O2 Del Method 98.0 F 65 18 113/64 Room Air 01/27/24 08:14 01/27/24 08:14 01/27/24 08:14 01/27/24 08:14 01/27/24 08:14 Oxygen Delivery Method Room Air Physical Exam Narrative Vascular: DP and PT pulses are palpable. CFT is brisk. Skin temperature is warm to warm from proximal ankle to distal digits. Mild increase in warmth to the left second digit. Nonpitting edema appreciated to the left foot. Hemosiderin deposits are appreciated. Neurological: Light touch intact. Patient response to painful stimuli. Dermatological: Full-thickness ulceration without probe to bone measuring 0.5 x 0.6 x 0.1 cm. Mild malodor is appreciated. No active drainage. Blanchable erythema to the distal left digit with mild proximal streaking. Excisional debridement down to and including subcutaneous tissue of the distal left digit full-thickness ulceration with a #3 dermal curette without incident. Predebridement measurement was callus. Postdebridement measurement is 0.5 x 0.6 x 0.1 cm. Musculoskeletal: No strength 5/5 in all quadrants bilateral. Kelikian push-up test shows rigidity to the PIPJ of the second digit with plantarflexion of the attitude with push-up test. No pain with calf pressure. Debridement Note Debridement Note Debridement Free Text: Excisional debridement down to and including subcutaneous tissue of the distal left digit full-thickness ulceration with a #3 dermal curette without incident. Predebridement measurement was callus. Postdebridement measurement is 0.5 x 0.6 x 0.1 cm. Post-Debridement Measurements and Additional Note: Post-Debridement Measurements/Treatment - Nurse 1 - General Ulcer Assessment Start: 01/27/24 08:14 Freq: Status: Active Protocol: [email or web address] Activity Type Activity Date Activity User E-sign Co-sign Detail Recorded Client Recorded Date Recorded By Document 01/27/24 08:14 KW ; 01/27/24 08:24 KW 01/27/24 08:14 - Today's Visit Information Type of service Initial Visit Arrival Mode Ambulatory Patient Identification Verified (Name & Yes ) Vital Signs Temperature (97.8 F-99.1 F) 98.0 F Temperature Source Temporal Pulse Rate (60-100) 65 Pulse Location Monitor Respiratory Rate (12-18) 18 Respiratory rate source Observation Oxygen Delivery Method Room Air Blood Pressure (90/60-120/80) 113/64 Blood Pressure Mean (mm Hg) 80 Source Monitor Position Semi-Fowlers Blood Pressure Location Left Arm History Since Last Visit- (Skip if this is Patient's initial visit) Left Footwear Regular Shoe Right Footwear Regular Shoe Pain Scale: 0-10 Numeric Is Patient Pain Free? Yes Communication Assessment Preferred language Swazi Able to Read Yes Able to Write Yes Communication Tools None Caregiver Communication Skills No Impairment Impairment Right Hearing Abillity Normal Left Hearing Abillity Normal Visual Assistive Devices Glasses Teaching Assessment Preferences Verbal,Written, Demonstration Barriers to Learning None Readiness To Learn Excellent Willingness to Engage in Self Management High Activies Readiness to Engage in Self Management High Activities Anxiety Level Calm Cooperation Cooperative Perception Coherent Interest in Health Problem Asks Questions Education Importance Acknowledges Need Does Patient Smoke tobacco or other No substances Smoking Status Never smoker Is Patient Diabetic No Functional Assessment Recent Decline in Ability to Perform Denies Any Declines 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 Phlebotomy Instructor to contact place of [facility] No WC - Nurse 1 - General Ulcer Measurement Start: 01/27/24 08:14 Freq: Status: Active Protocol: Activity Type Activity Date Activity User E-sign Co-sign Detail Recorded Client Recorded Date Recorded By Document 01/27/24 08:14 KW ; 01/27/24 08:24 KW 01/27/24 08:14 Wound Center Nurse 1 #1 LT 2ND TOE -Current Size (cm) - Length 0.2 -Current Size (cm) - Width 0.2 -Current Size (cm) - Depth 0.1 -Total Square Cm 0.04 -Date of Last Picture (Recall this 01/27/24 field) -Exudate Amt Small -Exudate Type Serosanguineous -Wound Margin Distinct, Outline Attached -Granulation Amt Small (1-33%) -Granulation Quality [place] -Necrosis Amt Small (1-33%) -Necrotic Tissue Type Adherent Slough -Texture ([place]ndina-wound Skin Appearance) Assessed,Callus -Moisture ([place]ndina-wound Skin Appearance) Assessed, Maceration -Color ([place]ndina-wound Skin Appearance) Assessed -Temperature ([place]ndina-wound Skin No Abnormality Appearance) (Pt Warm) -Tenderness on Palpation ([place]ndina-wound No Skin Appearance) -Ulcer Cleansing Rinsed/ Irrigated with Saline -Foul Odor after Cleansing No -Anesthetic Used 5% Lidocaine Gel Left Calf (cm) 41 Left Ankle (cm) 24.8 CATIE - Nurse 2 - General Ulcer CM Notes Start: 01/27/24 08:14 Freq: Status: Active Protocol: Activity Type Activity Date Activity User E-sign Co-sign Detail Recorded Client Recorded Date Recorded By Document 01/27/24 08:34 GM 01/27/24 08:40 GM Edit Result 01/27/24 08:34 GM (1) 01/27/24 08:40 GM (1) #1 LT 2ND TOE - Post Debridement (cm) - Length => 0.5 - Post Debridement (cm) - Width => 0.6 - Post Debridement (cm) - Depth => 0.1 - Total Square (Post) (cm) => 0.30 - Area of Debridement (cm) - Length => 0.5 - Area of Debridement (cm) - Width => 0.6 - Total Square (Area) (cm) => 0.30 01/27/24 08:34 Wound Center Nurse 2 #1 LT 2ND TOE -Time 08:37 -Correct Patient Yes -Correct Side, Site, Position Yes -Correct Procedure Yes -Procedure Performed Yes -Type of Procedure Debridement -Clinical Debridement Subcutaneous -Tissue Removed Subcutaneous -Post Debridement (cm) - Length 0.5 -Post Debridement (cm) - Width 0.6 -Post Debridement (cm) - Depth 0.1 -Total Square (Post) (cm) 0.30 -Area of Debridement (cm) - Length 0.5 -Area of Debridement (cm) - Width 0.6 -Total Square (Area) (cm) 0.30 -Tunneling No -Undermining/Tunneling No -Circular Undermining No -Wound/Ulcer Outcome Not Healed -Ulcer Cleansing Rinsed/ Irrigated with Saline -Foul Odor after Cleansing No -Bioengineered Tissue No -Bleeding Controlled with Pressure -Debridement - Subq, 1st 20sq cm Yes Pain Scale: 0-10 Numeric Is Patient Pain Free? Yes Assessment/Plan Assessment/Plan (1) Non-pressure chronic ulcer of other part of left foot with fat layer exposed: CODE(S): L97.522 - Non-pressure chronic ulcer of other part of left foot with fat layer exposed PLAN: Patient was examined and evaluated. All findings were discussed with the patient. All questions were answered to the patient's satisfaction. Excisional debridement down to and including subcutaneous tissue of the distal left digit full-thickness ulceration with a #3 dermal curette without incident. Predebridement measurement was callus. Postdebridement measurement is 0.5 x 0.6 x 0.1 cm. After physical examination the patient is evidence of contracture to the PIPJ of the left second digit. Recommending hammertoe surgery with flexor tendon transfer which patient is agreeable to. Prior to surgery we will order today, vascular studies as well as x-ray of the left foot. Once we receive these preliminary examination/studies we will begin booking the patient for elective outpatient surgery. If that is delayed would recommend flexor tenotomy in the wound care center in the next 2 weeks to help decrease the pressure to the distal aspect of the left second digit. Patient was understanding of this. Culture was taken in office and will be followed and new antibiotics or an additional week of antibiotics/bactrim will be sent into the patient's pharmacy. Follow-up at the wound care center with Dr. Nuno in 1 week. (2) Other specified peripheral vascular diseases: CODE(S): I73.89 - Other specified peripheral vascular diseases (3) Hammer toe of left foot: CODE(S): M20.42 - Other hammer toe(s) (acquired), left foot (4) Contracture, left foot: CODE(S): M24.575 - Contracture, left foot
[2024-02-03 09:25] VITALS: BP 124/62; PULSE 68; RESP 18; TEMP 35.9
--- NOTE | 2024-02-03 10:54 | PCM.WC.PN ---
History of Present Illness Date of Service: 02/03/24 Chief Complaint: Left second digit ulcer History of Wound: Left second digit ulcer referred by Burton Fay for evaluation and possible surgery Progress of Wound: The patient's left second digit distal ulceration is present due to rigid contracture of the hammertoe. Patient was seen by outside provider placed on oral antibiotics. Presenting to the wound care center today for evaluation and treatment for the ulceration Subjective Subjective Mr. Ashby is a 68 male presented wound care center today for follow-up evaluation of full-thickness ulceration distal aspect of the left second digit. He has received his antibiotic and is taking them as written. He was in the emergency room secondary to dehydration. He admits some improvement but redness to the left second toe. Denies any drainage. Dressing changes at home. Denies trauma. Denies constitutional symptoms. No other pedal complaints at this time. Objective Data Objective Data Vital Signs: Vital Signs Temp Pulse Resp BP O2 Del Method 96.6 F L 68 18 124/62 H Room Air 02/03/24 09:25 02/03/24 09:25 02/03/24 09:25 02/03/24 09:25 01/27/24 08:14 Oxygen Delivery Method Room Air Lab / Micro Data Micro: Microbiology 01/27/24 08:35 Ulcer, Decubitus - Left Foot Gram Stain - Final 01/27/24 08:35 Ulcer, Decubitus - Left Foot Wound Culture - Final Meth. resistant Staph. aureus Streptococcus group G 01/27/24 08:35 Ulcer, Decubitus - Left Foot Anaerobic Culture - Final Anaerobic cocci Physical Exam Narrative Vascular: DP and PT pulses are palpable. CFT is brisk. Skin temperature is warm to warm from proximal ankle to distal digits. Mild increase in warmth to the left second digit, improving. Nonpitting edema appreciated to the left foot. Hemosiderin deposits are appreciated. Neurological: Light touch intact. Patient response to painful stimuli. Dermatological: Full-thickness ulceration without probe to bone measuring 0.7 x 0.6 x 0.1 cm. Malodor improving. No active drainage. Blanchable erythema to the distal left digit with mild proximal streaking. Excisional debridement down to and including subcutaneous tissue of the distal left digit full-thickness ulceration with a #3 dermal curette without incident. Predebridement measurement was 0.3 x 0.3 x 0.1 cm. Postdebridement measurement is 0.7 x 0.6 x 0.1 cm. Musculoskeletal: No strength 5/5 in all quadrants bilateral. Kelikian push-up test shows rigidity to the PIPJ of the second digit with plantarflexion of the attitude with push-up test. No pain with calf pressure. Debridement Note Debridement Note Debridement Free Text: Excisional debridement down to and including subcutaneous tissue of the distal left digit full-thickness ulceration with a #3 dermal curette without incident. Predebridement measurement was 0.3 x 0.3 x 0.1 cm. Postdebridement measurement is 0.7 x 0.6 x 0.1 cm. 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 ) Arrival Mode Ambulatory Ambulatory Patient Identification Verified (Name & Yes Yes ) Patient Requires Transmission-Based No Precautions Vital Signs Temperature (97.8 F-99.1 F) 98.0 F 96.6 F L Temperature Source Temporal Temporal Pulse Rate (60-100) 65 68 Pulse Location Monitor Monitor Respiratory Rate (12-18) 18 18 Respiratory rate source Observation Observation Oxygen Delivery Method Room Air Blood Pressure (90/60-120/80) 113/64 124/62 H Blood Pressure Mean (mm Hg) 80 82 Source Monitor Monitor Position Semi-Fowlers Semi-Fowlers Blood Pressure Location Left Arm Left Arm History Since Last Visit- (Skip if this is Patient's initial visit) Have you changed medications since your No last visit? Any new allergies or adverse reactions No Had a fall/change in ADL's that may No increase risk of falls Signs or symptoms of abuse and/or No neglect since last visit Have you been in the hospital since your No last visit? Has dressing in place as prescribed Yes Has compression in place as prescribed N/A Has offloadiing in place as prescribed N/A Experienced any changes in pain level or No management Left Footwear Regular Shoe Regular Shoe Right Footwear Regular Shoe Regular Shoe Pain Scale: 0-10 Numeric Is Patient Pain Free? Yes Yes Communication Assessment Preferred language Green[place]ic Able to Read Yes Able to Write Yes Communication Tools None Caregiver Communication Skills No Impairment Impairment Right Hearing Abillity Normal Left Hearing Abillity Normal Visual Assistive Devices Glasses Teaching Assessment Preferences Verbal,Written, Demonstration Barriers to Learning None Readiness To Learn Excellent Willingness to Engage in Self Management High Activies Readiness to Engage in Self Management High Activities Anxiety Level Calm Cooperation Cooperative Perception Coherent Interest in Health Problem Asks Questions Education Importance Acknowledges Need Does Patient Smoke tobacco or other No substances Smoking Status Never smoker Is Patient Diabetic No Functional Assessment Recent Decline in Ability to Perform Denies Any Declines 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 Avionics Electronics Technician to contact place of latter-day No WC - Nurse 1 - General Ulcer Measurement Start: 01/27/24 08:14 Freq: Status: Active Protocol: Activity Type Activity Date Activity User E-sign Co-sign Detail Recorded Client Recorded Date Recorded By Document 01/27/24 08:14 KW ; 01/27/24 08:24 KW Document 02/03/24 09:25 JF 000 02/03/24 09:27 JF 01/27/24 02/03/24 08:14 09:25 Wound Center Nurse 1 #1 LT 2ND TOE -Combined with other wound No -Current Size (cm) - Length 0.2 0.7 -Current Size (cm) - Width 0.2 0.8 -Current Size (cm) - Depth 0.1 0.1 -Total Square Cm 0.04 0.56 -Date of Last Picture (Recall this 01/27/24 field) -Photo Taken No -Epithelialization Small 1-33% -Tunneling No -Undermining/Tunneling No -Circular Undermining No -Exudate Amt Small Small -Exudate Type Serosanguineous Serosanguineous -Wound Margin Distinct, Flat & Intact Outline Attached -Granulation Amt Small (1-33%) Large (67-100%) -Granulation Quality [place] Red -Slough/Fibrin Yes -Necrosis Amt Small (1-33%) Small (1-33%) -Necrotic Tissue Type Adherent Slough Adherent Slough -Structure Exposed N/A -Texture ([place]-wound Skin Appearance) Assessed,Callus Assessed -Moisture ([place]-wound Skin Appearance) Assessed, Assessed,Dry/ Maceration Scaly -Color ([place]-wound Skin Appearance) Assessed Assessed -Temperature ([place]-wound Skin No Abnormality No Abnormality Appearance) (Pt Warm) (Pt Warm) -Tenderness on Palpation ([place]-wound No No Skin Appearance) -Ulcer Cleansing Rinsed/ Rinsed/ Irrigated with Irrigated with Saline Saline -Foul Odor after Cleansing No No -Anesthetic Used 5% Lidocaine 5% Lidocaine Gel Gel Lower Limb Edema Present NA Left Calf (cm) 41 Left Ankle (cm) 24.8 WC - Nurse 2 - General Ulcer CM Notes Start: 01/27/24 08:14 Freq: Status: Active Protocol: Activity Type Activity Date Activity User E-sign Co-sign Detail Recorded Client Recorded Date Recorded By Document 01/27/24 08:34 GM 01/27/24 08:40 GM Edit Result 01/27/24 08:34 GM (1) 01/27/24 08:40 GM Document 02/03/24 09:34 JF 000 02/03/24 09:40 JF (1) #1 LT 2ND TOE - Post Debridement (cm) - Length => 0.5 - Post Debridement (cm) - Width => 0.6 - Post Debridement (cm) - Depth => 0.1 - Total Square (Post) (cm) => 0.30 - Area of Debridement (cm) - Length => 0.5 - Area of Debridement (cm) - Width => 0.6 - Total Square (Area) (cm) => 0.30 01/27/24 02/03/24 08:34 09:34 Wound Center Nurse 2 #1 LT 2ND TOE -Time 08:37 09:39 -Correct Patient Yes Yes -Correct Side, Site, Position Yes Yes -Correct Procedure Yes Yes -Procedure Performed Yes Yes -Type of Procedure Debridement Debridement -Clinical Debridement Subcutaneous Subcutaneous -Tissue Removed Subcutaneous Subcutaneous -Post Debridement (cm) - Length 0.5 0.7 -Post Debridement (cm) - Width 0.6 0.6 -Post Debridement (cm) - Depth 0.1 0.1 -Total Square (Post) (cm) 0.30 0.42 -Area of Debridement (cm) - Length 0.5 0.7 -Area of Debridement (cm) - Width 0.6 0.6 -Total Square (Area) (cm) 0.30 0.42 -Tunneling No No -Undermining/Tunneling No No -Circular Undermining No No -Wound/Ulcer Outcome Not Healed Not Healed -Ulcer Cleansing Rinsed/ Rinsed/ Irrigated with Irrigated with Saline Saline -Foul Odor after Cleansing No No -Bioengineered Tissue No No -Bleeding Controlled with Pressure Pressure -Treatment Response Procedure Tolerated Well -Offloading No -Debridement - Subq, 1st 20sq cm Yes Yes Pain Scale: 0-10 Numeric Is Patient Pain Free? Yes Yes - Nurse 3 - General Ulcer D/C NN Start: 01/27/24 08:14 Freq: Status: Active Protocol: Activity Type Activity Date Activity User E-sign Co-sign Detail Recorded Client Recorded Date Recorded By Document 01/27/24 08:52 KW ; 01/27/24 08:55 KW Document 02/03/24 09:48 KW d 02/03/24 09:48 KW 01/27/24 02/03/24 08:52 09:48 Wound Care Center Nurse 3 #1 LT 2ND TOE -Other Dressing BETADINE betadine with bandaide -Primary Dressing Covered/Secured with Dry Gauze, Secured with Tape Pain Scale: 0-10 Numeric Is Patient Pain Free? Yes Yes - Visit Discharge Discharge Condition Stable Ambulatory Status Ambulatory Transportation Private Auto Medication Reconcilliation completed & No provided to patient/care provider Clinical Summary of Care Provided Yes Assessment/Plan Assessment/Plan (1) Non-pressure chronic ulcer of other part of left foot with fat layer exposed: CODE(S): L97.522 - Non-pressure chronic ulcer of other part of left foot with fat layer exposed PLAN: Patient was examined and evaluated. All findings were discussed with the patient. All questions were answered to the patient's satisfaction. Excisional debridement down to and including subcutaneous tissue of the distal left digit full-thickness ulceration with a #3 dermal curette without incident. Predebridement measurement was 0.3 x 0.3 x 0.1 cm. Postdebridement measurement is 0.7 x 0.6 x 0.1 cm. The left digit was wiped clean and patted dry. Betadine paint followed by sterile dressing was applied. Patient will continue doxycycline 100 milligrams twice daily until gone. Reviewed the patient's radiographs to left foot that show evidence of destruction of bone to the distal phalanx of the second digit which is concerning for osteomyelitis. The patient has been booked for incision bone cortex with advancement flap closure to the distal toe with hammertoe correction and flexor tendon transfer. We will begin authorization for insurance purposes. Surgery to be performed after medical clearance. Follow-up at the wound care center with Dr. Nuno in 1 week. (2) Other specified peripheral vascular diseases: CODE(S): I73.89 - Other specified peripheral vascular diseases (3) Osteomyelitis of second toe of right foot: CODE(S): M86.9 - Osteomyelitis, unspecified
[2024-02-10 11:32] VITALS: BP 134/78; PULSE 65; RESP 18; TEMP 35.9
--- NOTE | 2024-02-10 12:46 | ART_ITS ---
Reason For Study: PVD Procedure A bilateral lower extremity continuous wave Doppler with analog waveform analysis,segmental pressures,and ankle brachial indexes without exercise. Left Segmental Pressures Left brachial= 117mmHg. Left posterior tibial artery = >254mmHg. Left dorsalis pedis artery = >254mmHg. Left digit = 102 mmHg. The left posterior tibial artery waveforms are triphasic. The left dorsalis pedis waveforms are triphasic. Right Segmental Pressures Right brachial= 116mmHg. Right posterior tibial artery = >254mmHg. Right dorsalis pedis artery = 145mmHg. Right digit = 104 mmHg. The right posterior tibial artery waveforms are triphasic. The right dorsalis pedis waveforms are triphasic. Indices The right ankle brachial index by the posterior tibial artery is N/C. The right ankle brachial index by the dorsalis pedis is 1.24. The right digital-brachial index is 0.89. The left ankle brachial index by the posterior tibial artery is N/C. The left ankle brachial index by the dorsalis pedis is N/C. The left digital-brachial index is 0.87. VL/Lower Ext Art Exam w/o Exercis Interpretation Summary Triphasic Doppler waveforms are noted at ankle level bilaterally. Pulse-volume recordings appear satisfactory at all levels bilaterally. The resting right ankle-brachial index is normal. The resting left ankle-brachial index could not be determined due to the non-compre ssibility of the vasculature at ankle level on the left. Digital-brachial indices are normal jhonatan aterally. There is evidence of arterial calcification at ankle level on the left. There i s no evidence of significant arterial occlusive disease in the lower extremities bilaterally. Ordering Physician: Karlene Nuno Referring Physician: KARLENE NUNO DPM Performed By: Jesse Holliday RVT
--- NOTE | 2024-02-10 12:46 | VDLE_ITS ---
Reason For Study: BLE Edema RIGHT LEFT CFV is compressible, spontaneous, phasic, CFV is compressible, spontaneous, phasic, competent and demonstrates normal competent, and demonstrates normal augmentation. augmentation. FV is compressible, spontaneous, phasic, FV is compressible, spontaneous, phasic, competent and demonstrates normal competent and demonstrates normal augmentation. augmentation. POP V is compressible, spontaneous, phasic, POP V is compressible, spontaneous, phasic, competent and demonstrates normal competent and demonstrates normal augmentation. augmentation. T/P Trunk is compressible. T/P Trunk is compressible. PTV is compressible. PTV is compressible. RT PerV is compressible. LT PerV is compressible. SFJ is competent and measures 0.63 cm. SFJ is competent and measures 0.68 cm. GSV proximal thigh measures 0.41 x 0.47 cm. GSV proximal thigh measures 0.42 x 0.42 cm. GSV at knee measures 0.37 x 0.45 cm. GSV at knee measures 0.42 x 0.49 cm. GSV is competent throughout. GSV is competent throughout. SSV proximal calf is competent and measures SSV proximal calf is competent and measures 0.17 x 0.21 cm. 0.24 x 0.27 cm. Procedure Exam performed in department. This is a venous duplex using B-mode, color flow and spectral Doppler. The exam was diagnostic. The study was technically difficult. VL/Venous Duplex US - Josh Extrem Interpretation Summary Deep veins of the lower extremities are bilaterally patent and compressible seg mentally. There is no evidence of deep vein thrombosis on either side. Valvular competence appears in tact within the proximal deep venous systems bilaterally. The great saphenous veins appear bila terally patent and compressible segmentally. Sapheno-femoral junctions are bilaterally competent . Valvular competence appears to be intact segmentally within the great saphenous veins bilaterally. Small saphenous veins are patent and competent bilaterally. Ordering Physician: Richie Nuno Referring Physician: Francisco Fay Performed By: Jesse Holliday RVT
--- NOTE | 2024-02-10 13:13 | PN.PCM_ITS ---
History of Present Illness Date of Service: 02/10/24 Chief Complaint: Left second digit ulcer History of Wound: Left second digit ulcer referred by Burton Fay for evaluation and possible surgery Progress of Wound: The patient's left second digit distal ulceration is present due to rigid contracture of the hammertoe. Patient was seen by outside provider placed on oral antibiotics. Presenting to the wound care center today for evaluation and treatment for the ulceration Subjective Subjective Mr. Gonzales is a 68-year-old male presenting to the wound care center today for follow-up evaluation of left second digit toe wound. Patient be getting his vascular studies today at 1 PM. He is working on his [employer] for work so that we can get the patient into the operating room to perform the necessary surgery on his left second toe. He has been compliant with his antibiotics. Denies trauma. Denies constitutional symptoms. No other other pedal complaints at this time. Objective Data Objective Data Vital Signs: Vital Signs Temp Pulse Resp BP O2 Del Method 96.6 F L 65 18 134/78 H Room Air 02/10/24 11:32 02/10/24 11:32 02/10/24 11:32 02/10/24 11:32 02/10/24 11:32 Oxygen Delivery Method Room Air Lab / Micro Data Micro: Microbiology 01/27/24 08:35 Ulcer, Decubitus - Left Foot Gram Stain - Final 01/27/24 08:35 Ulcer, Decubitus - Left Foot Wound Culture - Final Meth. resistant Staph. aureus Streptococcus group G 01/27/24 08:35 Ulcer, Decubitus - Left Foot Anaerobic Culture - Final Anaerobic cocci Physical Exam Narrative Vascular: DP and PT pulses are palpable. CFT is brisk. Skin temperature is warm to warm from proximal ankle to distal digits. Mild increase in warmth to the left second digit, improving. Nonpitting edema appreciated to the left foot. Hemosiderin deposits are appreciated. Neurological: Light touch intact. Patient response to painful stimuli. Dermatological: Full-thickness ulceration without probe to bone measuring 0.4 x 0.4 x 0.1 cm. (-) PTB. No Malodor. Blanchable erythema no proximal streaking. Excisional debridement down to and including subcutaneous tissue of the distal left digit full-thickness ulceration with a #3 dermal curette without incident. Predebridement measurement was 0.2 x 0.2 x 0.1 cm. Postdebridement measurement is 0.4 x 0.4 x 0.1 cm. Musculoskeletal: No strength 5/5 in all quadrants bilateral. Kelikian push-up test shows rigidity to the PIPJ of the second digit with plantarflexion of the attitude with push-up test. No pain with calf pressure. Debridement Note Debridement Note Debridement Free Text: Excisional debridement down to and including subcutaneous tissue of the distal left digit full-thickness ulceration with a #3 dermal curette without incident. Predebridement measurement was 0.2 x 0.2 x 0.1 cm. Postdebridement measurement is 0.4 x 0.4 x 0.1 cm. 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/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 PLANT REPAIRER ) ) Arrival Mode Ambulatory Ambulatory Ambulatory Patient Identification Verified (Name & Yes Yes Yes ) Patient Requires Transmission-Based No Precautions Vital Signs Temperature (97.8 F-99.1 F) 98.0 F 96.6 F L 96.6 F L Temperature Source Temporal Temporal Temporal Pulse Rate (60-100) 65 68 65 Pulse Location Monitor Monitor Monitor Respiratory Rate (12-18) 18 18 18 Respiratory rate source Observation Observation Observation Oxygen Delivery Method Room Air Room Air Blood Pressure (90/60-120/80) 113/64 124/62 H 134/78 H Blood Pressure Mean (mm Hg) 80 82 96 Source Monitor Monitor Monitor Position Semi-Fowlers Semi-Fowlers Semi-Fowlers Blood Pressure Location Left Arm Left Arm Left Arm History Since Last Visit- (Skip if this is Patient's initial visit) Have you changed medications since your No No last visit? Any new allergies or adverse reactions No No Had a fall/change in ADL's that may No No increase risk of falls Signs or symptoms of abuse and/or No No neglect since last visit Have you been in the hospital since your No No last visit? Has dressing in place as prescribed Yes Yes Has compression in place as prescribed N/A N/A Has offloadiing in place as prescribed N/A N/A Experienced any changes in pain level or No No management Left Footwear Regular Shoe Regular Shoe Regular Shoe Right Footwear Regular Shoe Regular Shoe Regular Shoe Pain Scale: 0-10 Numeric Is Patient Pain Free? Yes Yes Yes Communication Assessment Preferred language [place] Able to Read Yes Able to Write Yes Communication Tools None Caregiver Communication Skills No Impairment Impairment Right Hearing Abillity Normal Left Hearing Abillity Normal Visual Assistive Devices Glasses Teaching Assessment Preferences Verbal,Written, Demonstration Barriers to Learning None Readiness To Learn Excellent Willingness to Engage in Self Management High Activies Readiness to Engage in Self Management High Activities Anxiety Level Calm Cooperation Cooperative Perception Coherent Interest in Health Problem Asks Questions Education Importance Acknowledges Need Does Patient Smoke tobacco or other No substances Smoking Status Never smoker Is Patient Diabetic No Functional Assessment Recent Decline in Ability to Perform Denies Any Declines 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 Painting And Coating Worker to contact place of yazidi No WC - Nurse 1 - General Ulcer Measurement Start: 01/27/24 08:14 Freq: Status: Active Protocol: Activity Type Activity Date Activity User E-sign Co-sign Detail Recorded Client Recorded Date Recorded By Document 01/27/24 08:14 KW ; 01/27/24 08:24 KW Document 02/03/24 09:25 JF 000 02/03/24 09:27 JF Document 02/10/24 11:32 KW hkj 02/10/24 11:38 KW 01/27/24 02/03/24 02/10/24 08:14 09:25 11:32 Wound Center Nurse 1 #1 LT 2ND TOE -Combined with other wound No -Current Size (cm) - Length 0.2 0.7 0.2 -Current Size (cm) - Width 0.2 0.8 0.3 -Current Size (cm) - Depth 0.1 0.1 0.1 -Total Square Cm 0.04 0.56 0.06 -Date of Last Picture (Recall this 01/27/24 field) -Photo Taken No -Epithelialization Small 1-33% -Tunneling No -Undermining/Tunneling No -Circular Undermining No -Exudate Amt Small Small None Present -Exudate Type Serosanguineous Serosanguineous -Wound Margin Distinct, Flat & Intact Distinct, Outline Outline Attached Attached -Granulation Amt Small (1-33%) Large (67-100%) Large (67-100%) -Granulation Quality [place] -Slough/Fibrin Yes -Necrosis Amt Small (1-33%) Small (1-33%) -Necrotic Tissue Type Adherent Slough Adherent Slough -Structure Exposed N/A -Texture (Ondina-wound Skin Appearance) Assessed,Callus Assessed Assessed -Moisture ([place]ndina-wound Skin Appearance) Assessed, Assessed,Dry/ Assessed,Dry/ Maceration Scaly Scaly -Color (Ondina-wound Skin Appearance) Assessed Assessed Assessed -Temperature (Ondina-wound Skin No Abnormality No Abnormality No Abnormality Appearance) (Pt Warm) (Pt Warm) (Pt Warm) -Tenderness on Palpation (Ondina-wound No No No Skin Appearance) -Ulcer Cleansing Rinsed/ Rinsed/ Rinsed/ Irrigated with Irrigated with Irrigated with Saline Saline Saline -Foul Odor after Cleansing No No No -Anesthetic Used 5% Lidocaine 5% Lidocaine 5% Lidocaine Gel Gel Gel Lower Limb Edema Present NA Left Calf (cm) 41 Left Ankle (cm) 24.8 WC - Nurse 2 - General Ulcer CM Notes Start: 01/27/24 08:14 Freq: Status: Active Protocol: Activity Type Activity Date Activity User E-sign Co-sign Detail Recorded Client Recorded Date Recorded By Document 01/27/24 08:34 [facility] 01/27/24 08:40 GM Edit Result 01/27/24 08:34 GM (1) 01/27/24 08:40 GM Document 02/03/24 09:34 JF 000 02/03/24 09:40 JF Document 02/10/24 11:44 JF 0000 02/10/24 11:47 JF (1) #1 LT 2ND TOE - Post Debridement (cm) - Length => 0.5 - Post Debridement (cm) - Width => 0.6 - Post Debridement (cm) - Depth => 0.1 - Total Square (Post) (cm) => 0.30 - Area of Debridement (cm) - Length => 0.5 - Area of Debridement (cm) - Width => 0.6 - Total Square (Area) (cm) => 0.30 01/27/24 02/03/24 02/10/24 08:34 09:34 11:44 Wound Center Nurse 2 #1 LT 2ND TOE -Time 08:37 09:39 11:45 -Correct Patient Yes Yes Yes -Correct Side, Site, Position Yes Yes Yes -Correct Procedure Yes Yes Yes -Procedure Performed Yes Yes Yes -Type of Procedure Debridement Debridement Debridement -Clinical Debridement Subcutaneous Subcutaneous Subcutaneous -Tissue Removed Subcutaneous Subcutaneous Subcutaneous -Post Debridement (cm) - Length 0.5 0.7 0.4 -Post Debridement (cm) - Width 0.6 0.6 0.4 -Post Debridement (cm) - Depth 0.1 0.1 0.1 -Total Square (Post) (cm) 0.30 0.42 0.16 -Area of Debridement (cm) - Length 0.5 0.7 0.4 -Area of Debridement (cm) - Width 0.6 0.6 0.4 -Total Square (Area) (cm) 0.30 0.42 0.16 -Tunneling No No No -Undermining/Tunneling No No No -Circular Undermining No No No -Wound/Ulcer Outcome Not Healed Not Healed Not Healed -Ulcer Cleansing Rinsed/ Rinsed/ Rinsed/ Irrigated with Irrigated with Irrigated with Saline Saline Saline -Foul Odor after Cleansing No No No -Bioengineered Tissue No No No -Bleeding Controlled with Pressure Pressure Pressure -Treatment Response Procedure Procedure Tolerated Well Tolerated Well -Offloading No No -Debridement - Subq, 1st 20sq cm Yes Yes Yes Pain Scale: 0-10 Numeric Is Patient Pain Free? Yes Yes Yes WC - Nurse 3 - General Ulcer D/C NN Start: 01/27/24 08:14 Freq: Status: Active Protocol: Activity Type Activity Date Activity User E-sign Co-sign Detail Recorded Client Recorded Date Recorded By Document 01/27/24 08:52 KW ; 01/27/24 08:55 KW Document 02/03/24 09:48 KW d 02/03/24 09:48 KW Document 02/10/24 11:52 JF 0000 02/10/24 11:52 JF 01/27/24 02/03/24 02/10/24 08:52 09:48 11:52 Wound Care Center Nurse 3 #1 LT 2ND TOE -Ulcer Cleansing Rinsed/ Irrigated with Saline -Foul Odor after Cleansing No -Other Dressing BETADINE betadine with betadine bandaide -Primary Dressing Covered/Secured with Dry Gauze, Dry Gauze, Secured with Secured with Tape Tape Pain Scale: 0-10 Numeric Is Patient Pain Free? Yes Yes Yes WC - Visit Discharge Discharge Condition Stable Stable Ambulatory Status Ambulatory Ambulatory Transportation Private Auto Private Auto Medication Reconcilliation completed & No Yes provided to patient/care provider Clinical Summary of Care Provided Yes Yes Assessment/Plan Assessment/Plan (1) Non-pressure chronic ulcer of other part of left foot with fat layer exposed: CODE(S): L97.522 - Non-pressure chronic ulcer of other part of left foot with fat layer exposed PLAN: Patient was examined and evaluated. All findings were discussed with the patient. All questions were answered to the patient's satisfaction. Excisional debridement down to and including subcutaneous tissue of the distal left digit full-thickness ulceration with a #3 dermal curette without incident. Predebridement measurement was 0.2 x 0.2 x 0.1 cm. Postdebridement measurement is 0.4 x 0.4 x 0.1 cm. Betadine paint was applied to the ulceration followed by sterile Band-Aid. Patient will continue dressing changes at home and oral antibiotics as written. Educated the patient to send the [facility] paperwork to the office so that it can be filled out we will begin surgical planning once medically cleared. Patient will follow-up with vascular lab for his PVRs and venous studies. Follow-up at the wound care center with Dr. Nuno in 1 week. (2) Osteomyelitis of second toe of right foot: CODE(S): M86.9 - Osteomyelitis, unspecified
--- NOTE | 2024-02-11 11:05 | WC ---
PHOTO 01/27/2024 LEFT 2ND TOE
== END 2024-02-10 23:59 | disposition home or self-care (01) ==
LOC: WC 13:00
PROVIDERS: PCP Family Medicine; Referring Provider Physician Assistant Surgical; Visit Provider Podiatrist Foot & Ankle Surgery
DX: I73.89 Other specified peripheral vascular diseases (principal); L97.522 Non-pressure chronic ulcer of other part of left foot with fat layer exposed; M86.9 Osteomyelitis, unspecified; M20.40 Other hammer toe(s) (acquired), unspecified foot; M24.575 Contracture, left foot
CPT/HCPCS: 11042; 87070; 87075; 87077; 87101; 87186; 87205; 93923; 93970; 99213; G0463

== ENCOUNTER → 2024-02-17 | Outpatient (CLI) | payer BC, SELFPAY ==
[2024-02-17 15:55] LABS: PSA,Total- Diagnostic 0.05 ng/mL (0.0-4.0)
== END | disposition home or self-care (01) ==
LOC: MTLAB 11:36
PROVIDERS: PCP Family Medicine; Referring Provider Nurse Practitioner; Visit Provider Nurse Practitioner
DX: C61 Malignant neoplasm of prostate (principal)
CPT/HCPCS: 36415; 84153; 84403

== ENCOUNTER 2024-02-20 11:32 | Emergency (ER) | payer BC, SELFPAY ==
[2024-02-20 11:33] VITALS: BP 139/63; PULSE 86; RESP 16; TEMP 36.3; O2SAT 96; BMI 43.2
--- NOTE | 2024-02-20 11:51 | EDS_ITS ---
HPI History of Present Illness Chief Complaint: Lower Extremity Injury Detail of Chief Complaint: Pain to the left hip and thigh Informant: patient Occured/Mechanism Comment: No history of trauma. He feels his prosthesis is loose. Onset/Context/Timing Onset: Weeks Context: Sudden Onset Timing: Continuous and Waxes and wanes Quality of Pain: Dull and Aching Location: Left inguinal area and anterior left thigh Current Severity: Mild Maximum Severity: Severe Worsened by: Going up and down steps, tying his shoes Relieved by: Rest Associated Symptoms Associated Symptoms: Negative for Parasthesia, Weakness or Loss of Funtion (States she has to kick his leg out laterally when he goes up steps.) Narrative Narrative: Patient is a 68-year-old male with history of hypothyroidism, neuropathy, PAD who has osteomyelitis of the left second toe and other problems with his toe. He does have history of nonobstructive atherosclerotic disease of his coronary arteries. There is also history of hypertension and BMI of 43.3. Patient presents because of pain in the left groin area. He has increased pain with walking, weightbearing, tying his shoes and significant pain with dysfunction when he goes up steps. He states he has to kick his leg out to the side. He denies pallor to the leg. He denies trauma to the lower extremity. He denies back pain. He denies radicular pain. He is presently on Tylenol and pregabalin for his discomfort. This is managed by his primary care physician. Prior similar symptoms: Yes Recent Illness/Hospitalization: No PFSH PFS Medical History High cholesterol Back pain History of hiatal hernia Gastric reflux Hypertension History of transesophageal echocardiography ([facility]) Blepharitis of left lower eyelid Chalazion left lower eyelid Elevated troponin Left shoulder pain Coronary artery disease Wears glasses Cancer CPAP (continuous positive airway pressure) dependence Sleep apnea Former smoker Leg cramps History of stress test History of echocardiogram Cardiology follow-up encounter History of hepatitis C Rheumatoid arthritis Hiatal hernia Myasthenia gravis Disc degeneration, lumbar Osteoarthritis of left hip COVID-19 virus detected (08/03/21) Hiatal hernia Hypoxemia Obstructive sleep apnea Nonrheumatic aortic (valve) stenosis Elevated troponin Nonobstructive atherosclerosis of coronary artery Essential (primary) hypertension Bradycardia with 41-50 beats per minute Prostate cancer Knee pain Hay fever Fatigue Shoulder pain Arthritis Hypogonadism in male Dyslipidemia Lower GI bleed Colonic polyp Morbid obesity with BMI of 45.0-49.9, adult Home Medications ?Medication ?Instructions ?Recorded ?Last Taken ?Type furosemide 40 mg tablet 40 mg PO DAILY diuretic/water pill 02/14/15 06/11/22 History niacin 500 mg tablet 500 mg PO QHS supplement 02/14/15 06/11/22 History omega-3 acid ethyl esters 1 gram 2 gm PO DAILY supplement 02/14/15 12/02/22 History capsule potassium chloride 20 mEq 20 meq PO DAILY supplement 02/14/15 06/11/22 History tablet,extended release(part/cryst) testosterone cypionate 100 mg/mL 1 ml IM Q14D hormone 02/14/15 06/11/22 History intramuscular oil folic acid 800 mcg tablet 0.8 mg PO DAILY supplement 03/09/17 06/11/22 History lisdexamfetamine 50 mg capsule 60 mg PO DAILY ADHD 03/09/17 06/11/22 History benazepril 40 mg tablet 40 mg PO DAILY blood pressure 07/12/19 06/12/22 04:45 History ergocalciferol (vitamin D2) 1,250 50,000 unit PO Q7D supplement 08/19/20 1 08/11/21 History mcg (50,000 unit) capsule pregabalin 100 mg capsule 100 mg PO TID pain 01/25/21 06/11/22 History sildenafil 100 mg tablet 100 mg PO DAILY PRN Erectile 11/04/21 06/11/22 History Dysfunction calcium 600 mg capsule 1,200 mg PO DAILY supplement 06/26/22 Unknown History aspirin 81 mg tablet,delayed 81 mg PO DAILY 12/03/22 12/02/22 History release vitamin [id number] B1 5.5 mg-12.5 1 ml PO BID 12/03/22 Unknown History mcg/5 mL oral liquid acetaminophen 500 mg tablet 1,000 mg PO Q8 PRN pain 12/04/22 Unknown History ascorbic acid (vitamin C) 1,000 mg 1 g PO DAILY 05/12/23 Unknown History capsule levothyroxine 50 mcg tablet 50 mcg PO DAILY 05/12/23 Unknown History diclofenac sodium 1 % topical gel 2 g topical ONCE PRN 09/18/23 Unknown History (Voltaren Arthritis Pain) cyclobenzaprine 10 mg tablet 10 mg PO QHS PRN PRN Muscle Spasm 09/24/23 Unknown Rx #10 TABLETS hydrocodone-acetaminophen 5-325mg 1 tab PO Q6H PRN PRN Pain 3 days 09/24/23 Unknown Rx 5mg-325mg #10 TABLETS doxycycline hyclate 100 mg capsule 100 mg PO BID 2 weeks #28 caps 02/01/24 Unknown Rx hydrocodone-acetaminophen 5-325mg 1 tab PO Q6H PRN PRN Pain 3 days 02/20/24 Unknown Rx 5mg-325mg #10 TABLETS Allergy/AdvReac Type Severity Reaction Status Date / Time hydromorphone HCl (From Allergy nausea, Verified 02/20/24 11:33 Dilaudid) confusion Family History Mother Skin cancer Surgical History History of colonoscopy History of cardiac catheterization History of hip replacement (~2021) History of shoulder surgery History of transcatheter aortic valve replacement (TAVR) (11/26/20) History of lumbar surgery History of left heart catheterization (08/20/20) History of knee surgery History of carpal tunnel release History of back surgery History of elbow surgery History of cataract surgery H/O laminectomy History of appendectomy H/O total knee replacement Social History household members: spouse current occupational status: employed Smoking Status: Never smoker alcohol intake: never ROS ROS ED Constitutional Constitutional ED: Denies chills, fever(s), subjective, sweats or weight loss Eyes Eyes: Denies blurry vision or change in vision Cardiovascular Cardiovascular: Denies chest pain or palpitations Respiratory/Chest Respiratory/Chest: Denies cough, dyspnea or dyspnea on exertion Gastrointestinal Gastrointestinal: Denies abdominal pain, constipation or diarrhea Genitourinary Genitourinary ED: Denies dysuria, hematuria or urinary frequency Musculoskeletal Musculoskeletal: Reports other Details: Left lower extremity pain from the inguinal crease to the knee. Patient is status post total hip arthroplasty and total knee arthroplasty on the left as well as total knee arthroplasty on the right. This was performed by Dr. Chava Pacheco. ; Denies arthralgias, back pain, myalgias or neck pain Integumentary Denies Abrasions or rash Neurologic Neurologic: Reports weakness EXAM Physical Exam Const Vital Signs: 02/20/24 11:33 Temperature 97.3 F L Temperature Source Temporal Pulse Rate 86 Respiratory Rate 16 Blood Pressure 139/63 H Blood Pressure Mean 88 Pulse Ox 96 Oxygen Delivery Method Room Air Positive well nourished and well developed Constitutional Narrative: Patient limps when he walks. He appears in slight discomfort. General Appearance ED: well developed HEENT Reports moist mucous membranes normocephalic and atraumatic Eyes PERRL Eyes Narrative: Extraocular muscles intact. Patient wears corrective lenses. Resp normal respiratory effort Cardio regular rate and regular rhythm GI non-tender and no masses Inspection: Negative for abdominal distention Auscultation: normoactive bowel sounds Palpation: soft Narrative: There is no belinda lymphadenopathy. There is a palpable left femoral pulse. There is no dermatologic changes noted. Extremity normal to inspection; Negative for full ROM Extremity Narrative: Patient has pain with flexion past 45 degrees left hip. There is no asymmetry, discoloration or leg vein distention. There is no reproducible palpable pain. Attempt to perform Alejandro Ramon 4 test causes him significant discomfort in the hip region. Passive flexion of the hip causes him discomfort. There is no clicking sound or sensation noted. Gait was observed. He has no foot drop. Able to walk on heels and toes. Able to perform 1 legged squat right and left. Sensation L3-S1 is symmetric. Patellar and ankle reflexes symmetric. EHL is weak on the left. Uncertain if this is new or old per patient. Neuro oriented x3 and CN's II-XII intact bilaterally Sensorium / Orientation: alert Sensory Exam: No sensory level loss detected Motor Exam: strength 5/5 throughout Psych mental status grossly normal Skin Skin Narrative: No wounds, rash or lesions noted left thigh or inguinal region MDM MDM MDM Narrative Medical decision making narrative: Patient is mechanical. Since he has a prosthesis will obtain x-ray to see if there is any abnormality noted. Otherwise treat will be symptomatic and follow- up with orthopedic surgeon. He presents today because he does not feel he can wait to see Dr. Pacheco. Radiography Chest X-Ray - ED: Read by ED Physician (Three-view x-ray of the left hip reveals a total hip arthroplasty. There is no abnormality noted. There is some minimal degenerative changes.) Discharge Plan Triage Chief Complaint: Lower Extremity Injury ED Provider: Hernandez Powell Dx/Rx/DC Orders Clinical Impression: Acute pain of left hip, Essential (primary) hypertension, Dyslipidemia, Acute pain of left thigh, Adult BMI 40.0-44.9 kg/sq m Instructions: ED Pain, Acute, Uncertain Cause Prescriptions: New hydrocodone-acetaminophen 5-325 mg tablet 1 tab PO Q6H PRN PRN (Reason: Pain) 3 Days Qty: 10 0RF No Action pregabalin 100 mg capsule 100 mg PO TID Patient Comments: TAKE 1 CAPSULE BY MOUTH 3 TIMES A DAY sildenafil 100 mg tablet 100 mg PO DAILY PRN (Reason: Erectile Dysfunction) levothyroxine 50 mcg tablet 50 mcg PO DAILY ascorbic acid (vitamin C) 1,000 mg capsule 1 g PO DAILY diclofenac sodium [Voltaren Arthritis Pain] 1 % gel 2 g topical ONCE PRN Rx Instructions: apply to single elbow, wrist or hand; for hand includes palm/fingers/back of hand furosemide 40 MG tablet 40 mg PO DAILY testosterone cypionate 100 MG/ML oil 1 ml IM Q14D potassium chloride 20 MEQ tablet 20 meq PO DAILY omega-3 acid ethyl esters 1 GM capsule 2 gm PO DAILY niacin 500 MG tablet 500 mg PO QHS folic acid 0.8 MG tablet 0.8 mg PO DAILY lisdexamfetamine 50 MG capsule 60 mg PO DAILY Patient Comments: TAKE ONE CAPSULE BY MOUTH EVERY DAY benazepril 40 MG tablet 40 mg PO DAILY ergocalciferol (vitamin D2) 50,000 UNIT capsule 50,000 unit PO Q7D Rx Instructions: on sundays calcium 600 mg Capsule 1,200 mg PO DAILY acetaminophen 500 mg tablet 1,000 mg PO Q8 PRN (Reason: pain) aspirin 81 mg tablet,delayed release (DR/EC) 81 mg PO DAILY vitamin [id number] B1 5.5-12.5 mg-mcg/5 mL Liquid 1 ml PO BID cyclobenzaprine [cyclobenzaprine] 10 mg tablet 10 mg PO QHS PRN PRN (Reason: Muscle Spasm) Qty: 10 0RF hydrocodone-acetaminophen [hydrocodone-acetaminophen] 5-325 mg tablet 1 tab PO Q6H PRN PRN (Reason: Pain) 3 Days Qty: 10 0RF doxycycline hyclate 100 mg capsule 100 mg PO BID 14 Days Qty: 28 0RF Primary Care Provider: Chun Schneider Referrals: Chun Schneider DO [Primary Care Provider] - Print Language: Hebrew Disposition Disposition: Home, Self Care
--- NOTE | 2024-02-20 12:10 | RAD_ITS ---
HISTORY Injury/Pain. TECHNIQUE: XR Hip Unilateral with Pelvis when performed; 2-3 Views. COMPARISON: 11/04/2021. FINDINGS: BONES : No acute fracture identified. No abnormal periprosthetic lucency seen. JOINTS: Left hip in place without dislocation. Mild degenerative change of the right hip SOFT TISSUES: Prostate radiotherapy seeds noted. RAD/HIP, UNI W/ Pelvis 2-3 Views IMPRESSION: Left hip arthroplasty without acute fracture or dislocation identified. Electronically Signed: Jillian Sandoval MD at 12:44 EDT ,
[2024-02-20 13:03] VITALS: BP 139/63; PULSE 86; RESP 16; TEMP 36.3; O2SAT 96
== END 2024-02-20 13:05 | disposition home or self-care (01) ==
PROVIDERS: Emergency Provider Emergency Medicine; PCP Family Medicine; Visit Provider Emergency Medicine
DX: M25.552 Pain in left hip (principal); Z68.41 Body mass index [BMI] 40.0-44.9, adult; E66.01 Morbid (severe) obesity due to excess calories; M79.652 Pain in left thigh; I10 Essential (primary) hypertension; I25.10 Atherosclerotic heart disease of native coronary artery without angina pectoris; E78.00 Pure hypercholesterolemia, unspecified; K21.9 Gastro-esophageal reflux disease without esophagitis; Z96.642 Presence of left artificial hip joint; Z96.652 Presence of left artificial knee joint
CPT/HCPCS: 73502; 99282

== ENCOUNTER 2024-03-09 11:00 | Outpatient (RCR) | payer BC, SELFPAY ==
[2024-02-17 10:28] VITALS: BP 98/57; PULSE 70; RESP 18; TEMP 36.2
--- NOTE | 2024-02-17 14:32 | PCM.WC.PN ---
History of Present Illness Date of Service: 02/17/24 Chief Complaint: Left second digit ulcer History of Wound: Left second digit ulcer referred by Burton Fay for evaluation and possible surgery Subjective Subjective Mr. oGnzales is a 68-year-old male presenting for his other follow-up evaluation of left second digit wound. Patient has positive osteo on x-ray. We are planning for surgical intervention and hammertoe correction of the second and third digit as an outpatient. He did get his vascular studies done and is waiting for his results. He denies trauma. Denies constitutional symptoms. The pain complaints at this time. Patient has his [employer] paperwork with him today. Objective Data Objective Data Vital Signs: Vital Signs Temp Pulse Resp BP O2 Del Method 97.2 F L 70 18 98/57 L Room Air 02/17/24 10:28 02/17/24 10:28 02/17/24 10:28 02/17/24 10:28 02/17/24 10:28 Oxygen Delivery Method Room Air Physical Exam Narrative Vascular: DP and PT pulses are palpable. CFT is brisk. Skin temperature is warm to warm from proximal ankle to distal digits. Mild increase in warmth to the left second digit, improving. Nonpitting edema appreciated to the left foot. Hemosiderin deposits are appreciated. Neurological: Light touch intact. Patient response to painful stimuli. Dermatological: Full-thickness ulceration without probe to bone measuring 0.3 x 0.3 x 0.1 cm. (-) PTB. No Malodor. Blanchable erythema no proximal streaking. Excisional debridement down to and including subcutaneous tissue of the distal left digit full-thickness ulceration with a #3 dermal curette without incident. Predebridement measurement was callus. Postdebridement measurement is 0.3 x 0.3 x 0.1 cm. Musculoskeletal: No strength 5/5 in all quadrants bilateral. Kelikian push-up test shows rigidity to the PIPJ of the second digit with plantarflexion of the attitude with push-up test. No pain with calf pressure. Debridement Note Debridement Note Debridement Free Text: Excisional debridement down to and including subcutaneous tissue of the distal left digit full-thickness ulceration with a #3 dermal curette without incident. Predebridement measurement was callus. Postdebridement measurement is 0.3 x 0.3 x 0.1 cm. 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 Any new allergies or adverse reactions No Had a fall/change in ADL's that may No increase risk of falls Signs or symptoms of abuse and/or No neglect since last visit Have you been in the hospital since your No last visit? Has dressing in place as prescribed Yes Has compression in place as prescribed Yes Has offloadiing in place as prescribed N/A Experienced any changes in pain level or No management Pain Scale: 0-10 Numeric Is Patient Pain Free? Yes CATIE - Nurse 1 - General Ulcer Measurement Start: 02/17/24 10:27 Freq: Status: Active Protocol: Activity Type Activity Date Activity User E-sign Co-sign Detail Recorded Client Recorded Date Recorded By Document 02/17/24 10:28 GM 02/17/24 10:37 GM 02/17/24 10:28 Wound Center Nurse 1 #1 LT 2ND TOE -Current Size (cm) - Length 0.1 -Current Size (cm) - Width 0.1 -Current Size (cm) - Depth 0.1 -Total Square Cm 0.01 -Photo Taken No -Epithelialization None Present -Exudate Amt None Present -Wound Margin Thickened -Texture (Ondina-wound Skin Appearance) Callus -Tenderness on Palpation (Ondina-wound No Skin Appearance) -Ulcer Cleansing Rinsed/ Irrigated with Saline -Foul Odor after Cleansing No -Anesthetic Used 5% Lidocaine Gel Left Calf (cm) 41.0 Left Ankle (cm) 23.5 WC - Nurse 2 - General Ulcer CM Notes Start: 02/17/24 10:27 Freq: Status: Active Protocol: Activity Type Activity Date Activity User E-sign Co-sign Detail Recorded Client Recorded Date Recorded By Document 02/17/24 10:52 JF 000 02/17/24 10:56 JF 02/17/24 10:52 Wound Center Nurse 2 #1 LT 2ND TOE -Time 10:55 -Correct Patient Yes -Correct Side, Site, Position Yes -Correct Procedure Yes -Procedure Performed Yes -Type of Procedure Debridement -Clinical Debridement Subcutaneous -Tissue Removed Subcutaneous -Post Debridement (cm) - Length 0.3 -Post Debridement (cm) - Width 0.3 -Post Debridement (cm) - Depth 0.2 -Total Square (Post) (cm) 0.09 -Area of Debridement (cm) - Length 0.3 -Area of Debridement (cm) - Width 0.3 -Total Square (Area) (cm) 0.09 -Tunneling No -Undermining/Tunneling No -Circular Undermining No -Wound/Ulcer Outcome Not Healed -Ulcer Cleansing Rinsed/ Irrigated with Saline -Foul Odor after Cleansing No -Bioengineered Tissue No -Bleeding Controlled with Pressure -Treatment Response Procedure Tolerated Well -Offloading No -Debridement - Subq, 1st 20sq cm Yes Pain Scale: 0-10 Numeric Is Patient Pain Free? Yes - Nurse 3 - General Ulcer D/C NN Start: 02/17/24 10:27 Freq: Status: Active Protocol: Activity Type Activity Date Activity User E-sign Co-sign Detail Recorded Client Recorded Date Recorded By Document 02/17/24 11:00 JF 000 02/17/24 11:01 JF 02/17/24 11:00 Wound Care Center Nurse 3 #1 LT 2ND TOE -Ulcer Cleansing Rinsed/ Irrigated with Saline -Foul Odor after Cleansing No -Other Dressing betadine -Primary Dressing Covered/Secured with Dry Gauze, Secured with Tape Pain Scale: 0-10 Numeric Is Patient Pain Free? Yes WC - Visit Discharge Discharge Condition Stable Ambulatory Status Ambulatory Transportation Private Auto Medication Reconcilliation completed & Yes provided to patient/care provider Clinical Summary of Care Provided Yes Assessment/Plan Assessment/Plan (1) Non-pressure chronic ulcer of other part of left foot with fat layer exposed: CODE(S): L97.522 - Non-pressure chronic ulcer of other part of left foot with fat layer exposed PLAN: Patient was examined and evaluated. All findings were discussed with the patient. All questions were answered to the patient's satisfaction. Excisional debridement down to and including subcutaneous tissue of the distal left digit full-thickness ulceration with a #3 dermal curette without incident. Predebridement measurement was callus. Postdebridement measurement is 0.3 x 0.3 x 0.1 cm. Left ulceration with clean and pat dry. Betadine paint followed by dry sterile dressing was applied to the left foot. Patient will be weightbearing as tolerated. Educated the patient to follow-up with his primary doctor for medical clearance. He was understanding of this. Patient is ready to move forward with surgical intervention as his vascular studies are unremarkable at this time. Follow-up at the wound care center with Dr. Nuno in 1 week. (2) Other specified peripheral vascular diseases: CODE(S): I73.89 - Other specified peripheral vascular diseases (3) Hammer toe of left foot: CODE(S): M20.42 - Other hammer toe(s) (acquired), left foot (4) Osteomyelitis of second toe of right foot: CODE(S): M86.9 - Osteomyelitis, unspecified
[2024-02-24 10:21] VITALS: BP 146/105; PULSE 106; RESP 18; TEMP 36.3
--- NOTE | 2024-02-24 11:30 | PN.PCM_ITS ---
History of Present Illness Date of Service: 02/24/24 Chief Complaint: Left second digit ulcer History of Wound: Left second digit ulcer referred by Burton Fay for evaluation and possible surgery Subjective Subjective Mr. Gonzales is a 68-year-old male presenting for his other follow-up evaluation of left second digit wound. Patient has positive osteo on x-ray. We are planning for surgical intervention and hammertoe correction of the second and third digit as an outpatient. Patient did get his vascular studies done. He does admit to being seen in the emergency room for unable to flex his upper leg left extremity. He is able to move it now. He is unsure how it happened. He did follow-up with orthopedic regarding his implant they state nothing was of any issue. They did recommend for him to move forward with surgical intervention. Denies any trauma. Denies constitutional symptoms. No other pedal complaints at this time. Objective Data Objective Data Vital Signs: Vital Signs Temp Pulse Resp BP O2 Del Method 97.4 F L 106 H 18 146/105 H Room Air 02/24/24 10:21 02/24/24 10:21 02/24/24 10:21 02/24/24 10:21 02/24/24 10:21 Oxygen Delivery Method Room Air Physical Exam Narrative Vascular: DP and PT pulses are palpable. CFT is brisk. Skin temperature is warm to warm from proximal ankle to distal digits. Mild increase in warmth to the left second digit, improving. Nonpitting edema appreciated to the left foot. Hemosiderin deposits are appreciated. Neurological: Light touch intact. Patient response to painful stimuli. Dermatological: Full-thickness ulceration without probe to bone measuring 0.2 x 0.2 x 0.1 cm. (-) PTB. No Malodor. Blanchable erythema no proximal streaking. Excisional debridement down to and including subcutaneous tissue of the distal left digit full-thickness ulceration with a #3 dermal curette without incident. Predebridement measurement was callus. Postdebridement measurement is 0.2 x 0.2 x 0.1 cm. Musculoskeletal: No strength 5/5 in all quadrants bilateral. Kelikian push-up test shows rigidity to the PIPJ of the second digit with plantarflexion of the attitude with push-up test. No pain with calf pressure. Debridement Note Debridement Note Debridement Free Text: Excisional debridement down to and including subcutaneous tissue of the distal left digit full-thickness ulceration with a #3 dermal curette without incident. Predebridement measurement was callus. Postdebridement measurement is 0.2 x 0.2 x 0.1 cm. Post-Debridement Measurements and Additional Note: Post-Debridement Measurements/Treatment - Nurse 1 - General Ulcer Assessment Start: 02/17/24 10:27 Freq: Status: Active Protocol: .LOWEXT Activity Type Activity Date Activity User E-sign Co-sign Detail Recorded Client Recorded Date Recorded By Document 02/17/24 10:28 GM 02/17/24 10:37 GM Edit Result 02/17/24 10:28 GM (1) 0000 02/17/24 10:44 GM Document 02/24/24 10:21 GM 02/24/24 10:26 GM (1) Pulse Rate (60-100) => 70 Blood Pressure (90/60-120/80) => 98/57 L Blood Pressure Mean (mm Hg) => 70 02/17/24 02/24/24 10:28 10:21 - Today's Visit Information Type of service Follow-up Visit Follow-up Visit (Physician/LEAK GANG SUPERVISOR (Physician/LEAK GANG SUPERVISOR ) ) Arrival Mode Ambulatory Ambulatory Transfer Assistance None Patient Identification Verified (Name & Yes Yes ) Vital Signs Temperature (97.8 F-99.1 F) 97.2 F L 97.4 F L Temperature Source Temporal Temporal Pulse Rate (60-100) 70 106 H Pulse Location Monitor Monitor Respiratory Rate (12-18) 18 18 Respiratory rate source Observation Observation Oxygen Delivery Method Room Air Room Air Blood Pressure (90/60-120/80) 98/57 L 146/105 H Blood Pressure Mean (mm Hg) 70 118 Source Monitor Monitor Position Sitting Sitting Blood Pressure Location Left Arm Left Arm History Since Last Visit- (Skip if this is Patient's initial visit) Have you changed medications since your No No last visit? Any new allergies or adverse reactions No No Had a fall/change in ADL's that may No No increase risk of falls Signs or symptoms of abuse and/or No No neglect since last visit Have you been in the hospital since your No No last visit? Has dressing in place as prescribed Yes Yes Has compression in place as prescribed Yes Yes Has offloadiing in place as prescribed N/A N/A Experienced any changes in pain level or No No management Pain Scale: 0-10 Numeric Is Patient Pain Free? Yes Yes - Nurse 1 - General Ulcer Measurement Start: 02/17/24 10:27 Freq: Status: Active Protocol: Activity Type Activity Date Activity User E-sign Co-sign Detail Recorded Client Recorded Date Recorded By Document 02/17/24 10:28 [facility] 02/17/24 10:37 Document 02/24/24 10:21 [facility] 02/24/24 10:26 02/17/24 02/24/24 10:28 10:21 Wound Center Nurse 1 #1 LT 2ND TOE -Current Size (cm) - Length 0.1 0.1 -Current Size (cm) - Width 0.1 0.1 -Current Size (cm) - Depth 0.1 0.1 -Total Square Cm 0.01 0.01 -Photo Taken No No -Epithelialization None Present -Tunneling No -Undermining/Tunneling No -Circular Undermining No -Exudate Amt None Present None Present -Wound Margin Thickened Indistinct, Non -Visible -Granulation Amt None Present (0 %) -Texture (Ondina-wound Skin Appearance) Callus Callus -Color ([place]ndina-wound Skin Appearance) Assessed -Tenderness on Palpation ([place]ndina-wound No No Skin Appearance) -Ulcer Cleansing Rinsed/ Not Cleansed Irrigated with Saline -Foul Odor after Cleansing No -Anesthetic Used 5% Lidocaine 5% Lidocaine Gel Gel Left Calf (cm) 41.0 Left Ankle (cm) 23.5 - Nurse 2 - General Ulcer CM Notes Start: 02/17/24 10:27 Freq: Status: Active Protocol: Activity Type Activity Date Activity User E-sign Co-sign Detail Recorded Client Recorded Date Recorded By Document 02/17/24 10:52 000 02/17/24 10:56 Document 02/24/24 10:37 0000 02/24/24 10:40 02/17/24 02/24/24 10:52 10:37 Wound Center Nurse 2 #1 LT 2ND TOE -Time 10:55 10:37 -Correct Patient Yes Yes -Correct Side, Site, Position Yes Yes -Correct Procedure Yes Yes -Procedure Performed Yes Yes -Type of Procedure Debridement Debridement -Clinical Debridement Subcutaneous Subcutaneous -Tissue Removed Subcutaneous Subcutaneous -Post Debridement (cm) - Length 0.3 0.2 -Post Debridement (cm) - Width 0.3 0.2 -Post Debridement (cm) - Depth 0.2 0.1 -Total Square (Post) (cm) 0.09 0.04 -Area of Debridement (cm) - Length 0.3 0.2 -Area of Debridement (cm) - Width 0.3 0.2 -Total Square (Area) (cm) 0.09 0.04 -Tunneling No No -Undermining/Tunneling No No -Circular Undermining No No -Wound/Ulcer Outcome Not Healed Not Healed -Ulcer Cleansing Rinsed/ Rinsed/ Irrigated with Irrigated with Saline Saline -Foul Odor after Cleansing No No -Bioengineered Tissue No No -Bleeding Controlled with Pressure Pressure -Treatment Response Procedure Procedure Tolerated Well Tolerated Well -Offloading No No -Debridement - Subq, 1st 20sq cm Yes Yes Pain Scale: 0-10 Numeric Is Patient Pain Free? Yes Yes - Nurse 3 - General Ulcer D/C NN Start: 02/17/24 10:27 Freq: Status: Active Protocol: Activity Type Activity Date Activity User E-sign Co-sign Detail Recorded Client Recorded Date Recorded By Document 02/17/24 11:00 000 02/17/24 11:01 Document 02/24/24 10:50 GM 02/24/24 10:50 02/17/24 02/24/24 11:00 10:50 Wound Care Center Nurse 3 #1 LT 2ND TOE -Ulcer Cleansing Rinsed/ Not Cleansed Irrigated with Saline -Foul Odor after Cleansing No -Other Dressing betadine betadine and gauze -Primary Dressing Covered/Secured with Dry Gauze, Dry Gauze, Secured with Secured with Tape Tape Pain Scale: 0-10 Numeric Is Patient Pain Free? Yes Yes - Visit Discharge Discharge Condition Stable Stable Ambulatory Status Ambulatory Ambulatory,Cane Transportation Private Auto Private Auto Medication Reconcilliation completed & Yes provided to patient/care provider Clinical Summary of Care Provided Yes Yes Assessment/Plan Assessment/Plan (1) Non-pressure chronic ulcer of other part of left foot with fat layer exposed: CODE(S): L97.522 - Non-pressure chronic ulcer of other part of left foot with fat layer exposed PLAN: Patient was examined and evaluated. All findings were discussed with the patient. All questions were answered to the patient's satisfaction. Excisional debridement down to and including subcutaneous tissue of the distal left digit full-thickness ulceration with a #3 dermal curette without incident. Predebridement measurement was callus. Postdebridement measurement is 0.2 x 0.2 x 0.1 cm. Ulceration was dressed with Betadine paint dry sterile dressing. Pulse volume recordings show evidence of triphasic pulses bilateral. Right ROSA is 1.24. The left ROSA cannot be calculated due to noncompressible vessels. TBI to the right is 0.89, TBI to left 0.87. Educated the patient that due to the concern for osteo myelitis to the distal phalanx we will still move forward with surgical intervention and will refer the patient to vascular surgery for needed workup and intervention if needed. This will be done after surgery to hopefully prevent any surgical breakdown or delayed healing to the left foot. Patient is agreeable with this type of plan as well as the patient's orthopedic surgeon would like to have the bone infection removed from his left foot as soon as possible. Follow-up at the wound care center with Dr. Nuno in 1 week. (2) Osteomyelitis of second toe of right foot: CODE(S): M86.9 - Osteomyelitis, unspecified (3) Other specified peripheral vascular diseases: CODE(S): I73.89 - Other specified peripheral vascular diseases
[2024-03-02 10:24] VITALS: BP 116/57; PULSE 58; RESP 18; TEMP 36.1
--- NOTE | 2024-03-02 11:40 | PN.PCM_ITS ---
History of Present Illness Date of Service: 03/02/24 Chief Complaint: Left second digit ulcer History of Wound: Left second digit ulcer referred by Burton Fay for evaluation and possible surgery Subjective Subjective Mr. Gonzales is a 68-year-old male presenting to the wound care center today for follow-up evaluation of full-thickness wound and osteomyelitis to the distal aspect of the left second digit. Patient has been doing home dressing changes as tolerated. He admits great improvement to the redness of the distal tuft of the left second toe. He is awaiting response for surgery and then he will begin getting clearance through his medical doctor. He has reached out to his work for [place] paperwork and would like to move forward with surgical intervention as quickly as possible so the FMLA does not start nor run out. Denies trauma. Denies constitutional symptoms. Other pedal complaints at this time. Objective Data Objective Data Vital Signs: Vital Signs Temp Pulse Resp BP O2 Del Method 97.0 F L 58 L 18 116/57 L Room Air 03/02/24 10:24 03/02/24 10:24 03/02/24 10:24 03/02/24 10:24 03/02/24 10:24 Oxygen Delivery Method Room Air Physical Exam Narrative Vascular: DP and PT pulses are palpable. CFT is brisk. Skin temperature is warm to warm from proximal ankle to distal digits. Mild increase in warmth to the left second digit, improving. Nonpitting edema appreciated to the left foot. Hemosiderin deposits are appreciated. Neurological: Light touch intact. Patient response to painful stimuli. Dermatological: Full-thickness ulceration without probe to bone measuring 0.2 x 0.2 x 0.1 cm. (-) PTB. No Malodor. Blanchable erythema no proximal streaking. Excisional debridement down to and including subcutaneous tissue of the distal left digit full-thickness ulceration with a #3 dermal curette without incident. Predebridement measurement was 0.1 x 0.1 x 0.1 cm. Postdebridement measurement is 0.2 x 0.2 x 0.1 cm. Musculoskeletal: No strength 5/5 in all quadrants bilateral. Kelikian push-up test shows rigidity to the PIPJ of the second digit with plantarflexion of the attitude with push-up test. No pain with calf pressure. Debridement Note Debridement Note Debridement Free Text: Excisional debridement down to and including subcutaneous tissue of the distal left digit full-thickness ulceration with a #3 dermal curette without incident. Predebridement measurement was 0.1 x 0.1 x 0.1 cm. Postdebridement measurement is 0.2 x 0.2 x 0.1 cm. Post-Debridement Measurements and Additional Note: Post-Debridement Measurements/Treatment - Nurse 1 - General Ulcer Assessment Start: 02/17/24 10:27 Freq: Status: Active Protocol: SOL Activity Type Activity Date Activity User E-sign Co-sign Detail Recorded Client Recorded Date Recorded By Document 02/17/24 10:28 GM 02/17/24 10:37 GM Edit Result 02/17/24 10:28 GM (1) 0000 02/17/24 10:44 GM Document 02/24/24 10:21 GM wc 02/24/24 10:26 GM Document 03/02/24 10:24 CP [id number] 03/02/24 10:31 CP (1) Pulse Rate (60-100) => 70 Blood Pressure (90/60-120/80) => 98/57 L Blood Pressure Mean (mm Hg) => 70 02/17/24 02/24/24 03/02/24 10:28 10:21 10:24 - Today's Visit Information Type of service Follow-up Visit Follow-up Visit Follow-up Visit (Physician/[place] [facility] (Physician/[place] [facility] (Physician/[place] [facility] ) ) ) Arrival Mode Ambulatory Ambulatory Ambulatory,Cane Transfer Assistance None Patient Identification Verified (Name & Yes Yes Yes ) Vital Signs Temperature (97.8 F-99.1 F) 97.2 F L 97.4 F L 97.0 F L Temperature Source Temporal Temporal Temporal Pulse Rate (60-100) 70 106 H 58 L Pulse Location Monitor Monitor Monitor Respiratory Rate (12-18) 18 18 18 Respiratory rate source Observation Observation Observation Oxygen Delivery Method Room Air Room Air Room Air Blood Pressure (90/60-120/80) 98/57 L 146/105 H 116/57 L Blood Pressure Mean (mm Hg) 70 118 76 Source Monitor Monitor Monitor Position Sitting Sitting Semi-Fowlers Blood Pressure Location Left Arm Left Arm Right Arm History Since Last Visit- (Skip if this is Patient's initial visit) Have you changed medications since your No No No last visit? Any new allergies or adverse reactions No No No Had a fall/change in ADL's that may No No No increase risk of falls Signs or symptoms of abuse and/or No No No neglect since last visit Have you been in the hospital since your No No No last visit? Has dressing in place as prescribed Yes Yes Yes Has compression in place as prescribed Yes Yes N/A Has offloadiing in place as prescribed N/A N/A N/A Experienced any changes in pain level or No No No management Left Footwear Regular Shoe Right Footwear Regular Shoe Pain Scale: 0-10 Numeric Is Patient Pain Free? Yes Yes Yes - Nurse 1 - General Ulcer Measurement Start: 02/17/24 10:27 Freq: Status: Active Protocol: Activity Type Activity Date Activity User E-sign Co-sign Detail Recorded Client Recorded Date Recorded By Document 02/17/24 10:28 [facility] 02/17/24 10:37 Document 02/24/24 10:21 [facility] 02/24/24 10:26 Document 03/02/24 10:24 CP [id number] 03/02/24 10:31 02/17/24 02/24/24 03/02/24 10:28 10:21 10:24 Wound Center Nurse 1 #1 LT 2ND TOE -Current Size (cm) - Length 0.1 0.1 0.2 -Current Size (cm) - Width 0.1 0.1 0.2 -Current Size (cm) - Depth 0.1 0.1 0.1 -Total Square Cm 0.01 0.01 0.04 -Photo Taken No No -Epithelialization None Present -Tunneling No -Undermining/Tunneling No -Circular Undermining No -Exudate Amt None Present None Present None Present -Wound Margin Thickened Indistinct, Non Distinct, -Visible Outline Attached -Granulation Amt None Present (0 Small (1-33%) %) -Granulation Quality Ucon,Red -Texture ([place]ndina-wound Skin Appearance) Callus Callus Assessed -Moisture ([place]ndina-wound Skin Appearance) Assessed -Color ([place]ndina-wound Skin Appearance) Assessed Assessed -Temperature ([place]ndina-wound Skin No Abnormality Appearance) (Pt Warm) -Tenderness on Palpation ([place]nd[place]-wound No No No Skin Appearance) -Ulcer Cleansing Rinsed/ Not Cleansed Rinsed/ Irrigated with Irrigated with Saline Saline -Foul Odor after Cleansing No No -Anesthetic Used 5% Lidocaine 5% Lidocaine 5% Lidocaine Gel Gel Gel Left Calf (cm) 41.0 Left Ankle (cm) 23.5 - Nurse 2 - General Ulcer CM Notes Start: 02/17/24 10:27 Freq: Status: Active Protocol: Activity Type Activity Date Activity User E-sign Co-sign Detail Recorded Client Recorded Date Recorded By Document 02/17/24 10:52 000 02/17/24 10:56 Document 02/24/24 10:37 0000 02/24/24 10:40 Document 03/02/24 10:53 [id number] 03/02/24 10:56 JF 02/17/24 02/24/24 03/02/24 10:52 10:37 10:53 Wound Center Nurse 2 #1 LT 2ND TOE -Time 10:55 10:37 10:56 -Correct Patient Yes Yes Yes -Correct Side, Site, Position Yes Yes Yes -Correct Procedure Yes Yes Yes -Procedure Performed Yes Yes Yes -Type of Procedure Debridement Debridement Debridement -Clinical Debridement Subcutaneous Subcutaneous Subcutaneous -Tissue Removed Subcutaneous Subcutaneous Subcutaneous -Post Debridement (cm) - Length 0.3 0.2 0.2 -Post Debridement (cm) - Width 0.3 0.2 0.2 -Post Debridement (cm) - Depth 0.2 0.1 0.1 -Total Square (Post) (cm) 0.09 0.04 0.04 -Area of Debridement (cm) - Length 0.3 0.2 0.2 -Area of Debridement (cm) - Width 0.3 0.2 0.2 -Total Square (Area) (cm) 0.09 0.04 0.04 -Tunneling No No No -Undermining/Tunneling No No No -Circular Undermining No No No -Wound/Ulcer Outcome Not Healed Not Healed Not Healed -Ulcer Cleansing Rinsed/ Rinsed/ Rinsed/ Irrigated with Irrigated with Irrigated with Saline Saline Saline -Foul Odor after Cleansing No No No -Bioengineered Tissue No No No -Bleeding Controlled with Pressure Pressure Pressure -Treatment Response Procedure Procedure Procedure Tolerated Well Tolerated Well Tolerated Well -Offloading No No No -Debridement - Subq, 1st 20sq cm Yes Yes Yes Pain Scale: 0-10 Numeric Is Patient Pain Free? Yes Yes Yes - Nurse 3 - General Ulcer D/C NN Start: 02/17/24 10:27 Freq: Status: Active Protocol: Activity Type Activity Date Activity User E-sign Co-sign Detail Recorded Client Recorded Date Recorded By Document 02/17/24 11:00 000 02/17/24 11:01 Document 02/24/24 10:50 [facility] 02/24/24 10:50 Document 03/02/24 11:04 [id number] 03/02/24 11:04 02/17/24 02/24/24 03/02/24 11:00 10:50 11:04 Wound Care Center Nurse 3 #1 LT 2ND TOE -Ulcer Cleansing Rinsed/ Not Cleansed Rinsed/ Irrigated with Irrigated with Saline Saline -Foul Odor after Cleansing No No -Other Dressing betadine betadine and betadine gauze -Primary Dressing Covered/Secured with Dry Gauze, Dry Gauze, Dry Gauze, Secured with Secured with Secured with Tape Tape Tape Left -Stockings Yes Pain Scale: 0-10 Numeric Is Patient Pain Free? Yes Yes Yes WC - Visit Discharge Discharge Condition Stable Stable Stable Ambulatory Status Ambulatory Ambulatory,Cane Ambulatory,Cane Transportation Private Auto Private Auto Private Auto Medication Reconcilliation completed & Yes Yes provided to patient/care provider Clinical Summary of Care Provided Yes Yes Yes Assessment/Plan Assessment/Plan (1) Non-pressure chronic ulcer of other part of left foot with fat layer exposed: CODE(S): L97.522 - Non-pressure chronic ulcer of other part of left foot with fat layer exposed PLAN: Patient was examined and evaluated. All findings were discussed with the patient. All questions were answered to the patient's satisfaction. Excisional debridement down to and including subcutaneous tissue of the distal left digit full-thickness ulceration with a #3 dermal curette without incident. Predebridement measurement was 0.1 x 0.1 x 0.1 cm. Postdebridement measurement is 0.2 x 0.2 x 0.1 cm. Ulceration was dressed with Betadine paint dry sterile dressing. Surgery pending. Follow-up at the wound care center with Dr. Nuno in 1 week. (2) Osteomyelitis of second toe of right foot: CODE(S): M86.9 - Osteomyelitis, unspecified (3) Other specified peripheral vascular diseases: CODE(S): I73.89 - Other specified peripheral vascular diseases
[2024-03-09 11:03] VITALS: BP 122/55; PULSE 123; RESP 18; TEMP 36.9
--- NOTE | 2024-03-09 13:07 | PN.PCM_ITS ---
History of Present Illness Date of Service: 03/09/24 Chief Complaint: Left second digit ulcer History of Wound: Left second digit ulcer referred by Burton Fay for evaluation and possible surgery Subjective Subjective Mr. Silva is a 68-year-old male presenting to wound care center today follow-up evaluation of osteomyelitis of the distal tuft of the left second digit. Patient is anticipating surgery in the next upcoming weeks. He is currently on FMLA for back problems. He is using a walker for assistance in ambulation. He denies any pain to the foot. He does have back pain. Denies trauma. Denies constitutional symptoms. No other pedal complaints at this time. Objective Data Objective Data Vital Signs: Vital Signs Temp Pulse Resp BP O2 Del Method 98.5 F 123 H 18 122/55 H Room Air 03/09/24 11:03 03/09/24 11:03 03/09/24 11:03 03/09/24 11:03 03/09/24 11:03 Oxygen Delivery Method Room Air Physical Exam Narrative Vascular: DP and PT pulses are palpable. CFT is brisk. Skin temperature is warm to warm from proximal ankle to distal digits. Mild increase in warmth to the left second digit, improving. Nonpitting edema appreciated to the left foot. Hemosiderin deposits are appreciated. Neurological: Light touch intact. Patient response to painful stimuli. Dermatological: Full-thickness ulceration without probe to bone measuring 0.1 x 0.1 x 0.1 cm. (-) PTB. No Malodor. Blanchable erythema no proximal streaking. Excisional debridement down to and including subcutaneous tissue of the distal left digit full-thickness ulceration with a #3 dermal curette without incident. Predebridement measurement was callus. Postdebridement measurement is 0.1 x 0.1 x 0.1 cm. Musculoskeletal: No strength 5/5 in all quadrants bilateral. Kelikian push-up test shows rigidity to the PIPJ of the second digit with plantarflexion of the attitude with push-up test. No pain with calf pressure. Debridement Note Debridement Note Debridement Free Text: Excisional debridement down to and including subcutaneous tissue of the distal left digit full-thickness ulceration with a #3 dermal curette without incident. Predebridement measurement was callus. Postdebridement measurement is 0.1 x 0.1 x 0.1 cm. Post-Debridement Measurements and Additional Note: Post-Debridement Measurements/Treatment - Nurse 1 - General Ulcer Assessment Start: 02/17/24 10:27 Freq: Status: Active Protocol: SOL Activity Type Activity Date Activity User E-sign Co-sign Detail Recorded Client Recorded Date Recorded By Document 02/17/24 10:28 GM wc 02/17/24 10:37 GM Edit Result 02/17/24 10:28 GM (1) 0000 02/17/24 10:44 GM Document 02/24/24 10:21 GM wc 02/24/24 10:26 GM Document 03/02/24 10:24 CP [id number] 03/02/24 10:31 CP Document 03/09/24 11:03 KW [id number] 03/09/24 11:06 KW (1) Pulse Rate (60-100) => 70 Blood Pressure (90/60-120/80) => 98/57 L Blood Pressure Mean (mm Hg) => 70 02/17/24 02/24/24 03/02/24 10:28 10:21 10:24 - Today's Visit Information Type of service Follow-up Visit Follow-up Visit Follow-up Visit (Physician/[facility]OSSB[employer] FRAME WIRER (Physician/CROSSBAR FRAME WIRER (Physician/CROS[employer] FRAME WIRER ) ) ) Arrival Mode Ambulatory Ambulatory Ambulatory,Cane Transfer Assistance None Patient Identification Verified (Name & Yes Yes Yes ) Vital Signs Temperature (97.8 F-99.1 F) 97.2 F L 97.4 F L 97.0 F L Temperature Source Temporal Temporal Temporal Pulse Rate (60-100) 70 106 H 58 L Pulse Location Monitor Monitor Monitor Respiratory Rate (12-18) 18 18 18 Respiratory rate source Observation Observation Observation Oxygen Delivery Method Room Air Room Air Room Air Blood Pressure (90/60-120/80) 98/57 L 146/105 H 116/57 L Blood Pressure Mean (mm Hg) 70 118 76 Source Monitor Monitor Monitor Position Sitting Sitting Semi-Fowlers Blood Pressure Location Left Arm Left Arm Right Arm History Since Last Visit- (Skip if this is Patient's initial visit) Have you changed medications since your No No No last visit? Any new allergies or adverse reactions No No No Had a fall/change in ADL's that may No No No increase risk of falls Signs or symptoms of abuse and/or No No No neglect since last visit Have you been in the hospital since your No No No last visit? Has dressing in place as prescribed Yes Yes Yes Has compression in place as prescribed Yes Yes N/A Has offloadiing in place as prescribed N/A N/A N/A Experienced any changes in pain level or No No No management Left Footwear Regular Shoe Right Footwear Regular Shoe Pain Scale: 0-10 Numeric Is Patient Pain Free? Yes Yes Yes 03/09/24 11:03 - Today's Visit Information Type of service Follow-up Visit (Physician/[employer] WIRER ) Arrival Mode Ambulatory, Walker Transfer Assistance Patient Identification Verified (Name & Yes ) Vital Signs Temperature (97.8 F-99.1 F) 98.5 F Temperature Source Temporal Pulse Rate (60-100) 123 H Pulse Location Monitor Respiratory Rate (12-18) 18 Respiratory rate source Observation Oxygen Delivery Method Room Air Blood Pressure (90/60-120/80) 122/55 H Blood Pressure Mean (mm Hg) 77 Source Monitor Position Semi-Fowlers Blood Pressure Location Left Arm History Since Last Visit- (Skip if this is Patient's initial visit) Have you changed medications since your No last visit? Any new allergies or adverse reactions No Had a fall/change in ADL's that may No increase risk of falls Signs or symptoms of abuse and/or No neglect since last visit Have you been in the hospital since your No last visit? Has dressing in place as prescribed Yes Has compression in place as prescribed Yes Has offloadiing in place as prescribed N/A Experienced any changes in pain level or No management Left Footwear Regular Shoe Right Footwear Regular Shoe Pain Scale: 0-10 Numeric Is Patient Pain Free? Yes - Nurse 1 - General Ulcer Measurement Start: 02/17/24 10:27 Freq: Status: Active Protocol: Activity Type Activity Date Activity User E-sign Co-sign Detail Recorded Client Recorded Date Recorded By Document 02/17/24 10:28 [facility] 02/17/24 10:37 Document 02/24/24 10:21 [facility] 02/24/24 10:26 Document 03/02/24 10:24 CP [id number] 03/02/24 10:31 CP Document 03/09/24 11:03 KW [id number] 03/09/24 11:06 KW 02/17/24 02/24/24 03/02/24 10:28 10:21 10:24 Wound Center Nurse 1 #1 2ND TOE -Current Size (cm) - Length 0.1 0.1 0.2 -Current Size (cm) - Width 0.1 0.1 0.2 -Current Size (cm) - Depth 0.1 0.1 0.1 -Total Square Cm 0.01 0.01 0.04 -Photo Taken No No -Epithelialization None Present -Tunneling No -Undermining/Tunneling No -Circular Undermining No -Exudate Amt None Present None Present None Present -Exudate Type -Wound Margin Thickened Indistinct, Non Distinct, -Visible Outline Attached -Granulation Amt None Present (0 Small (1-33%) %) -Granulation Quality [place],Red -Necrosis Amt -Necrotic Tissue Type -Texture ([place]-wound Skin Appearance) Callus Callus Assessed -Moisture ([place]-wound Skin Appearance) Assessed -Color ([place]-wound Skin Appearance) Assessed Assessed -Temperature ([place]-wound Skin No Abnormality Appearance) (Pt Warm) -Tenderness on Palpation ([place]-wound No No No Skin Appearance) -Ulcer Cleansing Rinsed/ Not Cleansed Rinsed/ Irrigated with Irrigated with Saline Saline -Foul Odor after Cleansing No No -Anesthetic Used 5% Lidocaine 5% Lidocaine 5% Lidocaine Gel Gel Gel Left Calf (cm) 41.0 Left Ankle (cm) 23.5 03/09/24 11:03 Wound Center Nurse 1 #1 2ND TOE -Current Size (cm) - Length 0.1 -Current Size (cm) - Width 0.1 -Current Size (cm) - Depth 0.1 -Total Square Cm 0.01 -Photo Taken -Epithelialization -Tunneling -Undermining/Tunneling -Circular Undermining -Exudate Amt Small -Exudate Type Serosanguineous -Wound Margin Distinct, Outline Attached -Granulation Amt Small (1-33%) -Granulation Quality [place] -Necrosis Amt Small (1-33%) -Necrotic Tissue Type Adherent Slough -Texture ([place]-wound Skin Appearance) Assessed,Callus -Moisture ([place]-wound Skin Appearance) Assessed -Color ([place]-wound Skin Appearance) Assessed -Temperature ([place]-wound Skin No Abnormality Appearance) (Pt Warm) -Tenderness on Palpation ([place]-wound No Skin Appearance) -Ulcer Cleansing Rinsed/ Irrigated with Saline -Foul Odor after Cleansing No -Anesthetic Used 5% Lidocaine Gel Left Calf (cm) Left Ankle (cm) WC - Nurse 2 - General Ulcer CM Notes Start: 02/17/24 10:27 Freq: Status: Active Protocol: Activity Type Activity Date Activity User E-sign Co-sign Detail Recorded Client Recorded Date Recorded By Document 02/17/24 10:52 JF 000 02/17/24 10:56 Document 02/24/24 10:37 JF 0000 02/24/24 10:40 Document 03/02/24 10:53 [id number] 03/02/24 10:56 Document 03/09/24 11:33 [id number] 03/09/24 11:35 JF 02/17/24 02/24/24 03/02/24 10:52 10:37 10:53 Wound Center Nurse 2 #1 LT 2ND TOE -Time 10:55 10:37 10:56 -Correct Patient Yes Yes Yes -Correct Side, Site, Position Yes Yes Yes -Correct Procedure Yes Yes Yes -Procedure Performed Yes Yes Yes -Type of Procedure Debridement Debridement Debridement -Clinical Debridement Subcutaneous Subcutaneous Subcutaneous -Tissue Removed Subcutaneous Subcutaneous Subcutaneous -Post Debridement (cm) - Length 0.3 0.2 0.2 -Post Debridement (cm) - Width 0.3 0.2 0.2 -Post Debridement (cm) - Depth 0.2 0.1 0.1 -Total Square (Post) (cm) 0.09 0.04 0.04 -Area of Debridement (cm) - Length 0.3 0.2 0.2 -Area of Debridement (cm) - Width 0.3 0.2 0.2 -Total Square (Area) (cm) 0.09 0.04 0.04 -Tunneling No No No -Undermining/Tunneling No No No -Circular Undermining No No No -Wound/Ulcer Outcome Not Healed Not Healed Not Healed -Ulcer Cleansing Rinsed/ Rinsed/ Rinsed/ Irrigated with Irrigated with Irrigated with Saline Saline Saline -Foul Odor after Cleansing No No No -Bioengineered Tissue No No No -Bleeding Controlled with Pressure Pressure Pressure -Treatment Response Procedure Procedure Procedure Tolerated Well Tolerated Well Tolerated Well -Offloading No No No -Debridement - Open, 1st 20sq cm -Debridement - Subq, 1st 20sq cm Yes Yes Yes Pain Scale: 0-10 Numeric Is Patient Pain Free? Yes Yes Yes 03/09/24 11:33 Wound Center Nurse 2 #1 LT 2ND TOE -Time 11:34 -Correct Patient Yes -Correct Side, Site, Position Yes -Correct Procedure Yes -Procedure Performed Yes -Type of Procedure Debridement -Clinical Debridement Epidermis / Dermis -Tissue Removed Epidermis, Dermis -Post Debridement (cm) - Length 0.1 -Post Debridement (cm) - Width 0.1 -Post Debridement (cm) - Depth 0.1 -Total Square (Post) (cm) 0.01 -Area of Debridement (cm) - Length 0.1 -Area of Debridement (cm) - Width 0.1 -Total Square (Area) (cm) 0.01 -Tunneling No -Undermining/Tunneling No -Circular Undermining No -Wound/Ulcer Outcome Not Healed -Ulcer Cleansing Rinsed/ Irrigated with Saline -Foul Odor after Cleansing No -Bioengineered Tissue No -Bleeding Controlled with Pressure -Treatment Response Procedure Tolerated Well -Offloading No -Debridement - Open, 1st 20sq cm Yes -Debridement - Subq, 1st 20sq cm Pain Scale: 0-10 Numeric Is Patient Pain Free? Yes - Nurse 3 - General Ulcer D/C NN Start: 02/17/24 10:27 Freq: Status: Active Protocol: Activity Type Activity Date Activity User E-sign Co-sign Detail Recorded Client Recorded Date Recorded By Document 02/17/24 11:00 [facility] 02/17/24 11:01 Document 02/24/24 10:50 [facility] 02/24/24 10:50 Document 03/02/24 11:04 [id number] 03/02/24 11:04 Document 03/09/24 11:44 [id number] 03/09/24 11:45 02/17/24 02/24/24 03/02/24 11:00 10:50 11:04 Wound Care Center Nurse 3 #1 LT 2ND TOE -Ulcer Cleansing Rinsed/ Not Cleansed Rinsed/ Irrigated with Irrigated with Saline Saline -Foul Odor after Cleansing No No -Other Dressing betadine betadine and betadine gauze -Primary Dressing Covered/Secured with Dry Gauze, Dry Gauze, Dry Gauze, Secured with Secured with Secured with Tape Tape Tape Left -Stockings Yes -Other Pain Scale: 0-10 Numeric Is Patient Pain Free? Yes Yes Yes - Visit Discharge Discharge Condition Stable Stable Stable Ambulatory Status Ambulatory Ambulatory,Cane Ambulatory,Cane Transportation Private Auto Private Auto Private Auto Medication Reconcilliation completed & Yes Yes provided to patient/care provider Clinical Summary of Care Provided Yes Yes Yes 03/09/24 11:44 Wound Care Center Nurse 3 #1 LT 2ND TOE -Ulcer Cleansing Not Cleansed -Foul Odor after Cleansing No -Other Dressing -Primary Dressing Covered/Secured with Dry Gauze, Secured with Tape Left -Stockings -Other personal compression sock Pain Scale: 0-10 Numeric Is Patient Pain Free? Yes WC - Visit Discharge Discharge Condition Stable Ambulatory Status Ambulatory Transportation Private Auto Medication Reconcilliation completed & provided to patient/care provider Clinical Summary of Care Provided Yes Assessment/Plan Assessment/Plan (1) Non-pressure chronic ulcer of other part of left foot with fat layer exposed: CODE(S): L97.522 - Non-pressure chronic ulcer of other part of left foot with fat layer exposed PLAN: Patient was examined and evaluated. All findings were discussed with the patient. All questions were answered to the patient's satisfaction. Excisional debridement down to and including subcutaneous tissue of the distal left digit full-thickness ulceration with a #3 dermal curette without incident. Predebridement measurement was callus. Postdebridement measurement is 0.1 x 0.1 x 0.1 cm. Ulceration was dressed with Betadine paint dry sterile dressing. Chart reviewed and consent was signed for surgery. All risk and benefits discussed patient great detail. Will plan to move forward with surgical intervention the next upcoming week. Patient will have to go get cardiac clearance prior to surgery. He does have a follow-up with vascular surgery approximately 1 week to 10 days after surgical intervention for consultation evaluation Plan for surgery will be incision of bone cortex, advancement flap closure with PIPJ arthrodesis to the left second digit along with open flexor tenotomy of the third digit left foot. Patient understands all risk and benefits like to move forward with surgery. Follow-up at the wound care center with Dr. Nuno in 1 week. (2) Osteomyelitis of second toe of right foot: CODE(S): M86.9 - Osteomyelitis, unspecified (3) Other specified peripheral vascular diseases: CODE(S): I73.89 - Other specified peripheral vascular diseases
== END 2024-03-12 23:59 | disposition home or self-care (01) ==
LOC: WC 11:00
PROVIDERS: PCP Family Medicine; Referring Provider Family Medicine; Visit Provider Podiatrist Foot & Ankle Surgery
DX: L97.522 Non-pressure chronic ulcer of other part of left foot with fat layer exposed (principal); M86.8X7 Other osteomyelitis, ankle and foot; M54.9 Dorsalgia, unspecified; Z79.82 Long term (current) use of aspirin; Z79.899 Other long term (current) drug therapy; I73.89 Other specified peripheral vascular diseases
CPT/HCPCS: 11042; 97597

== ENCOUNTER 2024-03-18 06:59 | Day surgery (SDC) | payer BC, SELFPAY ==
--- NOTE | 2024-03-17 08:31 | NURSING ---
pt didn't have labs done on 03/16- called the pt and he is going to come today, 03/17, to have them done
[2024-03-17 12:31] LABS: Magnesium 2.3 mg/dL (1.6-2.6)
[2024-03-18] VITALS (9 sets, daily range): BP systolic 118–140; BP diastolic 63–76; PULSE 53–76; RESP 16–18; TEMP 36.1–36.9; O2SAT 90–100; BMI 43.7
[2024-03-18] MEDS: Lactated Ringers 1,000 ML 15 ML IV (07:41)
[2024-03-18] MEDS: Acetaminophen 500 MG Tablet 1000 MG PO (07:42)
[2024-03-18] MEDS: Magnesium 1 GM over 15 mins IV (07:42)
[2024-03-18] MEDS: Gabapentin 600 MG Tablet PO (07:42)
--- NOTE | 2024-03-18 08:28 | PRE.ANES_ITS ---
ASA Classification* ASA Classification ASA Classification: 3 Assessment & Plan Anesthesia* Anesthesia Assessment Anesthesia Assessment: Discussed sedation and/or anesthesia options, risks, benefits, and alternatives with patient/parents/legal guardian/POA. Questions invited. The patient/parents/legal guardian/POA seems to understand and agrees to proceed with anesthesia plan. Reviewed the physical assessment, medical history, allergy history and patient home medications list prior to surgery/procedure/anesthetic and documented any changes. Performed airway and anesthesia risk assessments. Anesthesia Type Anesthesia Type: General History Source History Obtained from:: Patient and Chart Anesthesia Focused Assessment* Temperature: 98.5 F Pulse Rate: 57 Blood Pressure: 126/67 Respiratory Rate: 18 Pulse Ox: 98 Oxygen Delivery Method: Room Air Airway Assessment Mouth opens: >3 cm Mallampati Score: I Teeth Condition: Caps/Crowns (Patient has several crowns on molars. They are all tight.) and Missing (Patient has several missing teeth.) Neck Range of motion (ROM): Limited ROM (Decreased extension.) Pertinent Findings ECHO Pertinent Findings:: Moderate aortic stenosis status post bioprosthetic valve. Focused Labs Anesthesia Preop lab: CBC WBC 6.4 K/mm3 (4.4-11.0) 01/30/24 17:25 RBC 4.85 M/mm3 (4.6-6.2) 01/30/24 17:25 Hgb 14.6 g/dL (13.0-16.5) 01/30/24 17:25 Hct 43.1 % (40-54) 01/30/24 17:25 Plt Count 321 K/mm3 (150-450) 01/30/24 17:25 CHEMISTRY Potassium 5.0 mmol/L (3.5-5.1) 01/30/24 17:25 Sodium 138 mmol/L (136-145) 01/30/24 17:25 Magnesium 2.3 mg/dL (1.6-2.6) 03/17/24 09:26 BUN 37 mg/dL (7-18) H 01/30/24 17:25 Creatinine 2.01 mg/dL (0.70-1.30) H 01/30/24 17:25 Glucose 98 mg/dL (74-106) 01/30/24 17:25 TSH 2.28 uIU/mL (0.358-3.74) 12/16/22 06:30 COAG PT 13.9 SECONDS (11.7-14.9) 09/10/23 23:08 Pre-Assessment Diagnosis/Proposed Procedure Planned Operative Procedure(s): LEFT FOOT SECOND DIGIT PROXIMAL INTERPHALANGEAL JOINT ARTHRODESIS WITH FLEXOR DIGITORIUM, TENDON TRANSFER, INCISION OF BONE CORTEX, AND ADVANCEMENT FLAP CLOSURE Anesthesia History 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 When Was Last Pacemaker Check QUESTION #4 FULL TEXT: You/Your Family Experience fever (hyperthermia) with Anesthesia Last Oral Intake Last Oral intake: Last Oral Intake NPO since 00:00 03/18/24 07:44 Meds taken in AM with sips of Yes 03/18/24 07:44 water? 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 Female No 03/15/24 10:30 HX of Motion Sickness No 03/15/24 10:30 HX of N/V After Surgery No 03/15/24 10:30 Non-Smoker Yes 03/15/24 10:30 Duration of Surgery greater Yes 03/15/24 10:30 than 60 minutes Number of Risk Factors 2 03/15/24 10:30 PONV Score Moderate Risk 03/15/24 10:30 Height & Weight Height & Weight: Anesthesia: Height & Weight Height 5 ft 9 in 03/18/24 07:44 Weight: 134.263 kg 03/18/24 07:44 Body Mass Index (BMI) 43.7 03/18/24 07:44 Respiratory Assessment Respiratory Assessment - full time paramedic: Respiratory Tract Infection Hx - full time paramedic Hx Respiratory Tract Infection No 03/15/24 10:30 STOP Sleep Apnea STOP Sleep Apnea - full time paramedic: STOP Sleep Apnea - full time paramedic Hx Hypertension Yes: CONTROLLED WITH MEDS 03/15/24 10:30 Hx Sleep Apnea Yes 03/15/24 10:30 CPAP No 03/15/24 10:30 BIPAP Yes 03/15/24 10:30 Do you snore loudly (louder than talking or can be heard Do you often feel tired/ fatigued/ sleepy during daytime? Has anyone observed you stop breathing during sleep? STOP Results Positive 03/15/24 10:30 QUESTION #5 FULL TEXT : Do you snore loudly (louder than talking or can be heard through closed doors)? 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 Specify any problems Hx of Preganancy in last 3 N/A 03/15/24 10:30 Months Nurse Filling Out Transfusion [id number] 03/15/24 10:30 & Questions: Date: 03/15/24 03/15/24 10:30 Time: 10:38 03/15/24 10:30 Patient unable to answer at this time (ie. 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: /Reproductive Hx- full time paramedic Hx Now Gestational Age (in weeks): EDC: Hx Hx Para Hx Section SAB Active Medications Active Medications: Current Medications Generic Name Dose Route Start Last Admin Trade Name Freq PRN Reason Stop Dose Admin Acetaminophen 1,000 mg 03/18/24 09:30 03/18/24 07:42 Acetaminophen 500 Mg Tablet PO 03/18/24 09:31 1,000 mg X1 ONE Administration Gabapentin 600 mg 03/18/24 09:30 03/18/24 07:42 Gabapentin 600 Mg Tablet PO 03/18/24 09:31 600 mg X1 ONE Administration Cefazolin Sodium 3 gm/ Sodium 115 mls @ 150 mls/hr 03/18/24 09:30 Chloride IV 03/18/24 10:15 PREOP ONE Magnesium Sulfate 1 gm/ 102 mls @ 408 mls/hr 03/18/24 09:30 03/18/24 07:57 Dextrose IV 03/18/24 09:44 Infused X1 ONE Infusion Lactated Ringer's 1,000 mls @ 15 mls/hr 03/18/24 07:15 03/18/24 07:41 IV 15 mls/hr .Q48H CUCO Administration Insulin Human Lispro 1 - 6 unit 03/18/24 09:30 Insulin Lispro 100 Unit/Ml Insuln.Pen SC 03/18/24 18:00 Q4H PRN PRN BG>/= 180, SEE PROTOCOL Protocol Sodium Chloride 5 - 15 ml 03/18/24 09:30 0.9% Nacl Peripheral Flush Adult/Peds IV UD PRN SALINE FLUSH PFSH Medical History Thyroid disease BiPAP (biphasic positive airway pressure) dependence PAD (peripheral artery disease) High cholesterol Back pain History of hiatal hernia Gastric reflux Hypertension History of transesophageal echocardiography (CHIKA) Blepharitis of left lower eyelid Chalazion left lower eyelid Elevated troponin Left shoulder pain Coronary artery disease Wears glasses Cancer Sleep apnea Former smoker Leg cramps History of stress test History of echocardiogram Cardiology follow-up encounter History of hepatitis C Rheumatoid arthritis Hiatal hernia Myasthenia gravis Disc degeneration, lumbar Osteoarthritis of left hip COVID-19 virus detected (08/03/21) Hiatal hernia Hypoxemia Obstructive sleep apnea Nonrheumatic aortic (valve) stenosis Elevated troponin Nonobstructive atherosclerosis of coronary artery Essential (primary) hypertension Bradycardia with 41-50 beats per minute Prostate cancer Knee pain Hay fever Fatigue Shoulder pain Arthritis Hypogonadism in male Dyslipidemia Lower GI bleed Colonic polyp Morbid obesity with BMI of 45.0-49.9, adult Home Medications ?Medication ?Instructions ?Recorded ?Last Taken ?Type furosemide 40 mg tablet 40 mg PO DAILY diuretic/water pill 02/14/15 03/17/24 History niacin 500 mg tablet 500 mg PO QHS supplement 02/14/15 03/15/24 History omega-3 acid ethyl esters 1 gram 2 gm PO DAILY supplement 02/14/15 03/15/24 History capsule potassium chloride 20 mEq 20 meq PO DAILY supplement 02/14/15 03/16/24 History tablet,extended release(part/cryst) testosterone cypionate 100 mg/mL 1 ml IM Q14D hormone 02/14/15 06/11/22 History intramuscular oil folic acid 800 mcg tablet 0.8 mg PO DAILY supplement 03/09/17 03/15/24 History benazepril 40 mg tablet 40 mg PO DAILY blood pressure 07/12/19 03/18/24 05:30 History ergocalciferol (vitamin D2) 1,250 50,000 unit PO Q7D supplement 08/19/20 03/13/24 History mcg (50,000 unit) capsule pregabalin 100 mg capsule 100 mg PO TID pain 01/25/21 03/16/24 History sildenafil 100 mg tablet 100 mg PO DAILY PRN Erectile 11/04/21 06/11/22 History Dysfunction calcium 600 mg capsule 1,200 mg PO DAILY supplement 06/26/22 03/15/24 History aspirin 81 mg tablet,delayed 81 mg PO DAILY 12/03/22 03/14/24 History release vitamin [id number] 5.5 mg-12.5 1 ml PO BID 12/03/22 03/15/24 History mcg/5 mL oral liquid acetaminophen 500 mg tablet 1,000 mg PO Q8 PRN pain 12/04/22 Unknown History ascorbic acid (vitamin C) 1,000 mg 1 g PO DAILY 05/12/23 03/15/24 History capsule levothyroxine 50 mcg tablet 50 mcg PO DAILY 05/12/23 03/17/24 History diclofenac sodium 1 % topical gel 2 g topical ONCE PRN pain 09/18/23 Unknown History (Voltaren Arthritis Pain) doxycycline hyclate 100 mg capsule 100 mg PO BID 2 weeks #28 caps 02/01/24 03/17/24 Rx lisdexamfetamine 60 mg capsule 60 mg PO DAILY 03/15/24 03/17/24 History Allergy/AdvReac Type Severity Reaction Status Date / Time hydromorphone HCl (From Allergy nausea, Verified 03/18/24 07:36 Dilaudid) confusion Family History Mother Skin cancer Surgical History History of colonoscopy History of cardiac catheterization History of hip replacement (~2021) History of shoulder surgery History of transcatheter aortic valve replacement (TAVR) (11/26/20) History of lumbar surgery History of left heart catheterization (08/20/20) History of knee surgery History of carpal tunnel release History of back surgery History of elbow surgery History of cataract surgery H/O laminectomy History of appendectomy H/O total knee replacement Social History household members: spouse current occupational status: employed Smoking Status: Former smoker alcohol intake: never Review of Systems (Anesthesia) ROS Narrative System reviewed and no additional complaints, except as documented.
[2024-03-18 08:29] LABS: Bedside Glucose 102 mg/dL (74-106)
--- NOTE | 2024-03-18 08:55 | OP.PCM_ITS ---
Problems Associated Problem List Diagnoses (1) Other hammer toe(s) (acquired), left foot: (2) Other specified peripheral vascular diseases: (3) Other acute osteomyelitis, left ankle and foot: (4) Hammer toe of left foot: (5) Contracture, left foot: (6) Osteomyelitis of second toe of right foot: Report of Operation Date of Procedure: 03/18/24 Pre-Operative Diagnosis: 1. Hammertoe, second digit, left foot 2. Hammertoe, third digit, left foot 3. Full-thickness wound, distal tuft, second digit, left foot 4. Osteomyelitis, distal phalanx, second digit, left foot 5. Contracture of foot, left foot 6. Peripheral vascular disease, left lower extremity Post-Operative Diagnosis: Same as preoperative diagnosis Surgery/Procedure Performed:: 1. Open flexor tenotomy, third digit, left foot 2. Percutaneous capsulotomy, third digit, left foot 3. Incision bone cortex, distal phalanx, second digit, left foot 4. Advancement flap closure, second digit, left foot 5. Second digit PIPJ arthrodesis, left foot 6. Open flexor tenotomy, second digit, left foot Description of Surgical Findings:: 1. Evidence of periosteal reaction appreciated distal phalanx, second digit, l eft foot 2. Evidence of calcified flexor tendons, second digit Surgeon: Richie Nuno foam rubber fabricator: Mar Price Type of Anesthesia: General and Local Anesthesiologist: Jaun Wang Special Medications: Per anesthesia Specimen's removed: 1. Distal phalanx, second digit, left foot, half sent to pathology and the other half sent to microbiology for culture and sensitivity Drains: None Estimated Blood Loss (mL): 20 mL Fluids Replaced: Per anesthesia Description of Procedure: Indications For Operation: Mr. Ashby is a 68-year-old male who was admitted to [facility] for elective left foot surgery secondary to osteomyelitis diagnosed on plain film radiograph. Patient was initially placed on my schedule with concern of a distal toe wound to the left foot second digit. After plain film radiographs there showed evidence of destruction of bone cortex to the distal phalanx concerning for osteomyelitis. The patient went under 2 rounds of oral antibiotics but still had evidence of delayed healing to the distal tuft of the second digit where he had a full-thickness wound with positive probe to bone. Patient also underwent noninvasive vascular studies and will be following up with vascular surgery for consultation and evaluation as well as for preventative medicine if the patient has delayed healing secondary to the bone infection and surgical intervention to the left foot. Surgical consultation was carried out the wound care center with chart reviewed consent signed. Patient understands all risks moving forward with elective surgery to the left foot. Due to bone infection and contracture of the left foot it has been deemed necessary at this time to take the patient to the operating room to perform the above procedure to help remove the infected portion of the bone from his second digit and reconstruct his lesser second and third digit to prevent any further breakdown of soft tissue and relieve his constant pain. The nature of the problem, anticipated procedures, postop recovery/convalences and risk/complications include but not limited to infection, wound healing co mplications, digital amputation, hypertrophic scarring, numbness, tingling, chronic pain, CRPS, over and under correction, recurrence of deformity, DVT and or PE and the need for further surgery have been discussed in great detail with the patient. All questions have been answered to the patient's satisfaction. There are no guarantees given as to the outcome of the procedure. Description of Procedure: Under mild sedation, the patient was brought into the operating room and placed on the operating table in supine position. Once the patient was under general anesthesia with regional mask airway, the left lower extremity was blocked using approximately 30 cc 0.5% Marcaine plain. Next, a well-padded thigh tourniquet was applied to the left lower extremity. Next, the left lower extremity was prepped and draped in normal aseptic manner. Next, a timeout was then undertaken verifying the correct patient, extremity, visibility of preoperative markings, availability of the equipment. Next using a 6 inch Esmarch the left lower extremity was exsanguinated elevated to 60 degrees for approximately 1 minute and then the left thigh tourniquet was inflated to 275 mmHg. Procedure #1: Open flexor tenotomy, third digit, left foot (CPT: 56009-C6, Dx: M20.42) Next, attention was directed to the third digit of the left foot. A small incision was made to the plantar aspect of the PIPJ of the third digit. The long flexor tendon was identified and released using a #15 blade without incident. Forced dorsiflexion was applied to the third digit with all fibers eventually released. The toe was more in a rectus position then contracted position. There still showed evidence of contracture at the level of the capsule of the third metatarsal phalangeal joint. The incision was flushed with copious months normal saline. The incision was closed with 4-0 nylon in simple interrupted suture technique. Procedure #2: Percutaneous capsulotomy, third digit, left foot (CPT: 92929-E0, Dx: M20.42) Next, attention was directed to the third digit, third metatarsophalangeal joint. Through a separate incision, using a [place] blade and handle, a percutaneous incision separate from the flexor tenotomy was performed on the dorsal aspect of the left foot. The capsule was identified under C-arm fluoroscopy and a percutaneous capsulotomy was performed. The third digit sat in a more rectus attitude and showed no evidence of continued contracture. Kelikian push-up test was performed under the third metatarsophalangeal joint and the digit was in a more rectus fashion. The incision was flushed with copious months normal saline. Incision was closed with 4-0 nylon in simple interrupted suture technique. Procedure #3: Incision bone cortex, distal phalanx, second digit, left foot (CPT: 76411-A2, Dx: M86.172) Next, attention was directed to the second digit distal aspect at the level of the full-thickness wound secondary to osteomyelitis. Through a separate incision, a fishmouth incision was marked out using a sterile skin marker at the level of the DIPJ and surrounding the nail plate. Using a pickup and #15 blade, a full-thickness vision down to bone along the incision marking was carried out without incident. The soft tissue and nailbed were removed and passed the back table to be discarded. The distal phalanx showed evidence of periosteal reaction to the distal tuft which was concerning for osteomyelitis. The distal phalanx was removed via incision of bone cortex, passed the back table and split in half for have to be sent to pathology and the other half to be sent to microbiology culture and sensitivity. The incision and defect were flushed with copious rounds normal saline. With attempt for flap closure there showed evidence of excess exposed bone from the intermediate phalanx which was ultimately removed using a sagittal saw and #114 blade. The head of the intermediate phalanx was passed back table to be discarded. Procedure #4: Advancement flap closure, second digit, left foot (CPT: 71217-P8, Dx: M86.172, L97.522) Next, the distal flap of the second digit was remodeled to allow for advancement flap closure. The deep layer was reapproximated closed using 4-0 Monocryl in buried suture technique. The skin was reapproximated closed using 4-0 nylon in simple interrupted suture technique. Procedure #5: Second digit PIPJ arthrodesis, left foot (CPT: 73538, Dx: M20.42) Next, a separate incision was marked out over the PIPJ and second metatarsophalangeal joint in a curvilinear fashion to decrease contracture. Using a #15 blade, a full-thickness incision down to subcutaneous tissue was performed. Continued sharp dissection was carried down to level of the tendon. The tendon was freed using a power technique and all soft tissue removed around the tendon and proximal phalanx. A capsulotomy was performed at the level of the PIPJ and the long extensor tendon was freed from the PIPJ and released back to the level of the second metatarsophalangeal joint. An additional capsulotomy was performed at the second metatarsophalangeal joint. Kelikian push-up test was performed at the second digit show to be in a more rectus fashion. Next, the head of the proximal phalanx was removed using a sagittal saw and #114 blade as well as the base of the intermediate phalanx. Next, attempt to perform a flexor digitorum longus tendon transfer was unsuccessful due to diffuse calcification of the long flexor tendon. It was a medical decision in the operating room to forego this procedure and move forward with a open flexor tenotomy of the second digit left foot. Next, the right medical Phalinx large PIPJ arthrodesis implant was implanted per the manufactures recommendation with the rep in the room. When attempting to remove the delivery device the implant backed out but then was repositioned by hand to allow for good apposition for arthrodesis. Attempt to pull the intermediate phalanx off of the implant was unsuccessful which meant that the implant was well-seated in the intermediate and proximal phalanx of the second digit. The medial lateral collateral ligaments were reapproximated and sutured using 4-0 Monocryl and simple interrupted suture technique. The long extensor was sutured back down to physiological tension to the body of the proximal phalanx. The incision was flushed with copious outs of normal saline. At this time the left lower extremity thigh tourniquet was deflated. And reperfusion was noted to the left foot. There was a little bit of delayed reperfusion to the second digit, the left foot was placed in a dependent position and reperfusion was noted to the second digit and flap. The deep layer was reapproximated and closed using 4-0 Monocryl in a running suture technique. The subcutaneous was reapproximated and closed using 4-0 Monocryl and running suture technique. The skin was reapproximated closed using 4-0 nylon in simple interrupted suture technique. Procedure #6: Open flexor tenotomy, second digit, left foot (CPT: 13492-T0, Dx: M20.42) Next, attention was directed to the plantar aspect of the second digit. Through a separate incision, a small incision was performed plantar to the PIPJ of the second digit. The long flexor was identified and showed calcification. The long flexor was released using [place] blade and handle. Kelikian push-up test was performed and the toe showed to be in a more rectus fashion and in parallel with the third digit. The incision was flushed with copious normal saline. The incision was reapproximated closed with 4-0 nylon in simple interrupted suture technique. The patient tolerated the procedure and anesthesia well and apparent satisfactory condition and was transported to the PACU for further monitoring prior to discharge home. Vital signs stable and vascular status intact to all digits bilateral. Post Operative Plan: Weightbearing: Patient may be heel weightbearing to left lower extremity. Full weightbearing to the right lower extremity. All weightbearing should be clinical project assistant with walker. Antibiotics: 3 g Ancef through the IV DVT Prophylaxis: 81 mg aspirin Shore: None Dressing: Betadine soaked Adaptic, dry sterile dressing, single-layer Garcia compression bandage left lower extremity X-Rays: Post-operative films taken on the operating room. Pain Medication: Percocet 5/325, Flexeril 10 mg Follow-up: Patient will follow-up 1 week post discharge at the wound care center next Thursday with Dr. Nuno. Please call for appointment and time. Grafts/Implants Used: 1. 1cc Viaflow Complications None Admit VTE Documentation VTE Present on Admission: No VTE Mechan Device Prophylaxis: SCD's VTE Pharm Prophylaxis ordered?: Yes
--- NOTE | 2024-03-18 09:21 | RAD_ITS ---
HISTORY: PAIN. TECHNIQUE: Left toes 4 spot images. COMPARISON: XR 01/30/2024. FINDINGS: OSSEOUS STRUCTURES: Surgical instruments overlying the second ray with fusion hardware placed at the proximal interphalangeal joint and amputation of the distal phalanx noted. RAD/Foot 2 Views IMPRESSION: Image guidance for left second toe interphalangeal arthrodesis. Electronically Signed: Jillian Sandoval MD at 8:19 EDT ,
[2024-03-18] MEDS: Cefazolin 3 GM in 0.9% Normal Saline (100mL Bag) 100 ML IV (09:24)
--- NOTE | 2024-03-18 09:30 | BON_PTH ---
PATIENT: YOHANA MARTINEZ LOC: [facility] U#:[id number] AGE/SX: 68/M ROOM: RE03/18/[address]: Dr. Richie Nuno DPM : 1955 BED: DIS: 03/18/2024 SPEC #: [id number] RECD: 03/18/24 11:25 STATUS: MAR REFabrizio #: [id number] MICHELLE: 03/18/24 09:[address]: Richie Nuno DEPT: SURGICAL PATHOLOGY RECD BY: Lilly Catalan ENTERED: 03/18/24 12:26 SP TYPE: Bone OTHR DR: Dr. Chun Schneider, DO Tissues: Toe, NOS Procedures: Decalcification bone/plaque Surgery Specimen Level IV HEADER OPERATION: Left foot second digit proximal interphalangeal joint PRE-OP DIAGNOSIS: Hammer toes, left foot TISSUE SUBMITTED: Incisional bone cortex left 2nd distal phalanx MICROSCOPIC DIAGNOSIS Bone cortex left distal phalanx, incisional core biopsy: A piece of bone with reactive changes. Negative for acute osteomyelitis. See comment. LIZBETH/ 03/23/2024 COMMENT Clinical correlation and appropriate follow up are necessary. MICROSCOPIC DESCRIPTION Slides are reviewed. GROSS DESCRIPTION Received in fixative is one container labeled with the patient's name and designated Incisional bone cortex left distal phalynx. The specimen consists of a piece of bone measuring 1.0 x 0.5 x 0.2cm. The entire specimen is submitted in one cassette after decalcification. 03/21/2024 TC:5 CPT:55859,04372
[2024-03-18] MEDS: Bupivacaine Mpf 0.5% 30 ML VIAL (10:24)
--- NOTE | 2024-03-18 11:41 | PCM.POST.ANE ---
Anesthesia: Postop Eval I Current Vital Signs Temperature: 97.5 F Pulse Rate: 76 Blood Pressure: 129/76 Respiratory Rate: 16 Pulse Ox: 96 Oxygen Delivery Method: Room Air Assessment Airway patent: Yes Spontaneous unlabored respirations: Yes Mental status: Calm nausea: No Vomiting: No Anesthesia Complication: No Fluid Hydration Crystalloid volume administer (ml): 1,100 Total IV fluid infused: 1,100 Progress Note Anesthesia document: Postop Eval 1 completed: Yes
--- NOTE | 2024-03-18 15:46 | POSTOPAN2_ITS ---
Anesthesia Postop Eval I Sum Postop Eval Completion status Anesthesia document: Postop Eval 1 completed: Yes Anesthesia Postop Eval I Summary Anesthesia Postop Eval I Summary: Anesthesia Postop Eval I: Assessment Summary Airway patent Yes 03/18/24 11:42 FENCE MACHINE OPERATOR.MDOT Spontaneous unlabored Yes 03/18/24 11:42 FENCE MACHINE OPERATOR.MDOT respirations Mental status Calm 03/18/24 11:42 FENCE MACHINE OPERATOR.MDOT nausea No 03/18/24 11:42 FENCE MACHINE OPERATOR.MDOT Vomiting No 03/18/24 11:42 FENCE MACHINE OPERATOR.MDOT Anesthesia Postop Eval I: Fluid Summary Crystalloid volume administer 1,100 03/18/24 11:42 FENCE MACHINE OPERATOR.MDOT (ml) Colloids volume administered ( ml) Blood Product volume administered (ml) Total IV fluid infused 1,100 03/18/24 11:42 FENCE MACHINE OPERATOR.MDOT Anesthesia Postop Eval I: Summary Notes Anesthesia Complication No 03/18/24 11:42 FENCE MACHINE OPERATOR.MDOT Anesthesia Complication Comment: Post-operative progress note Anesthesia: Postop Eval II Evaluation Mental status: Awake and Calm Pain Level: 1 nausea: No Vomiting: No Complications Anesthesia Complication: No
--- NOTE | 2024-03-18 15:46 | PCM.POSTANE2 ---
Anesthesia Postop Eval I Sum Postop Eval Completion status Anesthesia document: Postop Eval 1 completed: Yes Anesthesia Postop Eval I Summary Anesthesia Postop Eval I Summary: Anesthesia Postop Eval I: Assessment Summary Airway patent Yes 03/18/24 11:42 AIRPORT OPERATIONS MANAGER.MDOT Spontaneous unlabored Yes 03/18/24 11:42 AIRPORT OPERATIONS MANAGER.MDOT respirations Mental status Calm 03/18/24 11:42 AIRPORT OPERATIONS MANAGER.MDOT nausea No 03/18/24 11:42 AIRPORT OPERATIONS MANAGER.MDOT Vomiting No 03/18/24 11:42 AIRPORT OPERATIONS MANAGER.MDOT Anesthesia Postop Eval I: Fluid Summary Crystalloid volume administer 1,100 03/18/24 11:42 AIRPORT OPERATIONS MANAGER.MDOT (ml) Colloids volume administered ( ml) Blood Product volume administered (ml) Total IV fluid infused 1,100 03/18/24 11:42 AIRPORT OPERATIONS MANAGER.MDOT Anesthesia Postop Eval I: Summary Notes Anesthesia Complication No 03/18/24 11:42 AIRPORT OPERATIONS MANAGER.MDOT Anesthesia Complication Comment: Post-operative progress note Anesthesia: Postop Eval II Evaluation Mental status: Awake and Calm Pain Level: 1 nausea: No Vomiting: No Complications Anesthesia Complication: No
== END 2024-03-18 13:22 | disposition home or self-care (01) ==
LOC: SDC 07:00 → AC 07:01
PROVIDERS: PCP Family Medicine; Referring Provider Podiatrist Foot & Ankle Surgery; Visit Provider Podiatrist Foot & Ankle Surgery
PROC: (CPT 28285; principal; 2024-03-18 09:15)
DX: M20.42 Other hammer toe(s) (acquired), left foot (principal); L97.522 Non-pressure chronic ulcer of other part of left foot with fat layer exposed; M86.172 Other acute osteomyelitis, left ankle and foot; E66.01 Morbid (severe) obesity due to excess calories; Z68.42 Body mass index [BMI] 45.0-49.9, adult; I73.89 Other specified peripheral vascular diseases; M24.575 Contracture, left foot; I10 Essential (primary) hypertension; I35.0 Nonrheumatic aortic (valve) stenosis; E03.9 Hypothyroidism, unspecified; E29.1 Testicular hypofunction; Z95.2 Presence of prosthetic heart valve; Z79.82 Long term (current) use of aspirin; Z79.890 Hormone replacement therapy; Z79.899 Other long term (current) drug therapy; Z86.16 Personal history of COVID-19; Z87.891 Personal history of nicotine dependence
CPT/HCPCS: 28285; 28232 ×2; 28270; 28005; 14040; 01470; 36415; 73620; 76000; 82962; 83735; 87015; 87070; 87075; 87081; 87102; 87116; 87205; 87206; 88305; 88311; C1713; J7120; J2405; J3475

== ENCOUNTER 2024-04-06 11:15 | Outpatient (RCR) | payer BC, SELFPAY ==
[2024-03-13 00:30] VITALS: BP 122/55; PULSE 123; RESP 18; TEMP 36.9
[2024-03-30 11:11] VITALS: BP 153/81; PULSE 73; RESP 18; TEMP 35.9
--- NOTE | 2024-03-30 12:46 | PN.PCM_ITS ---
History of Present Illness Date of Service: 03/30/24 Chief Complaint: Left second digit ulcer History of Wound: Left second digit ulcer referred by Burton Fay for evaluation and possible surgery Subjective Subjective Mr. Ashby is a 68-year-old male presenting the wound care center today for follow-up evaluation of status post open flexor tenotomy and percutaneous capsulotomy to the third digit left foot followed by incision bone cortex with advancement flap closure to the second digit as well as with PIPJ arthrodesis and open flexor tenotomy to the second digit left foot. DOS: 03/18/2024. Patient is recovering well. He is left his dressing clean dry and intact. He admits to minimal pain to the left foot. He did have an MRI of his back and is possibly needing lower back fusion surgery in the near future. Patient is following his postoperative directions as written. Grateful for his care. Denies trauma. Denies constitutional symptoms. No other pedal complaints at this time. Objective Data Objective Data Vital Signs: Vital Signs Temp Pulse Resp BP O2 Del Method 96.7 F L 73 18 153/81 H Room Air 03/30/24 11:11 03/30/24 11:11 03/30/24 11:11 03/30/24 11:11 03/30/24 11:11 Oxygen Delivery Method Room Air Physical Exam Narrative Vascular: DP and PT pulses are triphasic on Doppler to left lower extremity. CFT is brisk. No evidence of flap failure. Skin temperature great is warm to warm from proximal ankle to distal digits to left lower extremity. No focal increase is noted. Neurological: Light touch intact. Patient response to painful stimuli. Dermatological: All incisions to the second and third digit of left foot are well coapted with suture. Incision has evidence of sanguinous crust. CFT is brisk to the second digit flap. No evidence of flap failure or necrotic tissue appreciated. There is evidence of serous blister to the dorsal medial aspect of the second digit. Musculoskeletal: No pain on palpation to the incision to the left second and third digit. No pain with calf pressure. Debridement Note Debridement Note Post-Debridement Measurements and Additional Note: Post-Debridement Measurements/Treatment CATIE - Nurse 1 - General Ulcer Assessment Start: 03/30/24 11:11 Freq: Status: Active Protocol: SOL Activity Type Activity Date Activity User E-sign Co-sign Detail Recorded Client Recorded Date Recorded By Document 03/30/24 11:11 [id number] 03/30/24 11:23 03/30/24 11:11 - Today's Visit Information Type of service Follow-up Visit (Physician/COMPRESSOR ASSEMBLER ) Arrival Mode Ambulatory, Walker Transfer Assistance None Accompanied by Patient Identification Verified (Name & Yes ) Vital Signs Temperature (97.8 F-99.1 F) 96.7 F L Temperature Source Temporal Pulse Rate (60-100) 73 Pulse Location Monitor Respiratory Rate (12-18) 18 Respiratory rate source Observation Oxygen Delivery Method Room Air Blood Pressure (90/60-120/80) 153/81 H Blood Pressure Mean (mm Hg) 105 Source Monitor Position Sitting Blood Pressure Location Left Arm History Since Last Visit- (Skip if this is Patient's initial visit) Have you changed medications since your No last visit? Any new allergies or adverse reactions No Had a fall/change in ADL's that may No increase risk of falls Signs or symptoms of abuse and/or No neglect since last visit Have you been in the hospital since your No last visit? Has dressing in place as prescribed Yes Has compression in place as prescribed Yes Has offloadiing in place as prescribed Yes Experienced any changes in pain level or No management Left Footwear Surgical Shoe with pressure relief insole Right Footwear Regular Shoe Pain Scale: 0-10 Numeric Is Patient Pain Free? Yes - Nurse 1 - General Ulcer Measurement Start: 03/30/24 11:11 Freq: Status: Active Protocol: Activity Type Activity Date Activity User E-sign Co-sign Detail Recorded Client Recorded Date Recorded By Document 03/30/24 11:11 [id number] 03/30/24 11:23 03/30/24 11:11 Wound Center Nurse 1 #1 LT 2ND TOE -Current Size (cm) - Length 0.1 -Current Size (cm) - Width 0.1 -Current Size (cm) - Depth 0.1 -Total Square Cm 0.01 -Photo Taken No -Epithelialization None Present -Tunneling No -Undermining/Tunneling No -Circular Undermining No -Exudate Amt None Present -Texture (Ondina-wound Skin Appearance) Assessed -Moisture (Ondina-wound Skin Appearance) Assessed -Color (Ondina-wound Skin Appearance) Assessed -Temperature (Ondina-wound Skin No Abnormality Appearance) (Pt Warm) -Tenderness on Palpation (Ondina-wound No Skin Appearance) -Ulcer Cleansing Rinsed/ Irrigated with Saline -Foul Odor after Cleansing No Lower Limb Edema Present No Left Calf (cm) 44.7 Left Ankle (cm) 24 - Nurse 2 - General Ulcer CM Notes Start: 03/30/24 11:11 Freq: Status: Active Protocol: Activity Type Activity Date Activity User E-sign Co-sign Detail Recorded Client Recorded Date Recorded By Document 03/30/24 11:38 [id number] 03/30/24 11:39 03/30/24 11:38 Wound Center Nurse 2 #1 LT 2ND TOE -Correct Patient No -Correct Side, Site, Position No -Correct Procedure No -Procedure Performed No -Wound/Ulcer Outcome Healed- Surgical Closure -Bleeding Controlled with Pressure -Treatment Response Procedure Tolerated Well -Offloading Yes -Type of Offloading Surgical Shoe Pain Scale: 0-10 Numeric Is Patient Pain Free? Yes - Nurse 3 - General Ulcer D/C NN Start: 03/30/24 11:11 Freq: Status: Active Protocol: Activity Type Activity Date Activity User E-sign Co-sign Detail Recorded Client Recorded Date Recorded By Document 03/30/24 11:39 [id number] 03/30/24 11:40 03/30/24 11:39 Wound Care Center Nurse 3 #1 LT 2ND TOE -Ulcer Cleansing Rinsed/ Irrigated with Saline -Foul Odor after Cleansing No -Primary Dressing Applied NonAdherent Contact Layer -Primary Dressing Covered/Secured with Dry Gauze & Roll Gauze, Secured with Tape -Wound Comment(s) Betadine soaked adaptic applied to incision surgical site. Left -Compression Wrap Douglsa Wrap Pain Scale: 0-10 Numeric Is Patient Pain Free? Yes - Visit Discharge Discharge Condition Stable Ambulatory Status Ambulatory, Walker Transportation Private Auto Accompanied by Medication Reconcilliation completed & Yes provided to patient/care provider Clinical Summary of Care Provided Yes Assessment/Plan Assessment/Plan (1) Other hammer toe(s) (acquired), left foot: CODE(S): M20.42 - Other hammer toe(s) (acquired), left foot PLAN: Patient was examined and evaluated. All findings were discussed with the patient. All questions were answered to the patient's satisfaction. Mr. Gonzales is recovering well from his left second and third his surgery. The serous blister to the dorsal medial aspect of the left second digit was lanced with 15 blade without incident. All fluid was drained. All incisions were dressed with Betadine soaked Adaptic 4 x 4's, Dieudonne wrap and a single layer Garcia compression bandage was lightly placed the left lower extremity. Review of the patient's vascular studies show evidence of noncompressible vessels the left lower extremity. There is evidence of triphasic Doppler waveforms are noted at the ankle bilaterally. Pulse volume recordings appear satisfactory at all levels bilaterally. The resting right ankle-brachial index is normal. The resting left ankle-brachial index cannot be determined due to noncompressible vessels at the level of the ankle. The digital brachial indices are normal bilateral. If the patient is having concerns with healing to the left foot will recommend intervention and follow-up with vascular surgery, Dr. Fidelina Louis MD. Patient will continue his postoperative course with partial weightbearing to the left heel. We will plan for suture removal in approximately 2 weeks. Follow-up at the wound care center with Dr. Nuno in 1 week. (2) Non-pressure chronic ulcer of other part of left foot with fat layer exposed: CODE(S): L97.522 - Non-pressure chronic ulcer of other part of left foot with fat layer exposed
[2024-04-06 11:24] VITALS: BP 133/73; PULSE 75; RESP 18; TEMP 36.3
--- NOTE | 2024-04-06 12:08 | PN.PCM_ITS ---
History of Present Illness Date of Service: 04/06/24 Chief Complaint: Left second digit ulcer History of Wound: Left second digit ulcer referred by Burton Fay for evaluation and possible surgery Subjective Subjective Mr. Ashby is a 68-year-old male presenting the wound care center today for follow-up evaluation of status post open flexor tenotomy and percutaneous capsulotomy to the third digit left foot followed by incision bone cortex with advancement flap closure to the second digit as well as with PIPJ arthrodesis and open flexor tenotomy to the second digit left foot. DOS: 03/18/2024. Patient is recovering well. Denies any pain to the left foot. He has been partial weightbearing with surgical shoe and walker. Denies trauma. Denies constitutional symptoms. Other pedal complaints at this time. Objective Data Objective Data Vital Signs: Vital Signs Temp Pulse Resp BP O2 Del Method 97.4 F L 75 18 133/73 H Room Air 04/06/24 11:24 04/06/24 11:24 04/06/24 11:24 04/06/24 11:24 04/06/24 11:24 Oxygen Delivery Method Room Air Physical Exam Narrative Vascular: DP and PT pulses are triphasic on Doppler to left lower extremity. CFT is brisk. No evidence of flap failure. Skin temperature great is warm to warm from proximal ankle to distal digits to left lower extremity. No focal increase is noted. Neurological: Light touch intact. Patient response to painful stimuli. Dermatological: All incisions to the second and third digit of left foot are well coapted with suture. Incision has evidence of sanguinous crust. CFT is brisk to the second digit flap. No evidence of flap failure or necrotic tissue appreciated. There is evidence of serous blister to the dorsal medial aspect of the second digit. Musculoskeletal: No pain on palpation to the incision to the left second and third digit. No pain with calf pressure. Debridement Note Debridement Note Post-Debridement Measurements and Additional Note: Post-Debridement Measurements/Treatment WC - Nurse 1 - General Ulcer Assessment Start: 03/30/24 11:11 Freq: Status: Active Protocol: CATIE.LOWEXT Activity Type Activity Date Activity User E-sign Co-sign Detail Recorded Client Recorded Date Recorded By Document 03/30/24 11:11 [id number] 03/30/24 11:23 GM Document 04/06/24 11:24 [id number] 04/06/24 11:31 03/30/24 04/06/24 11:11 11:24 - Today's Visit Information Type of service Follow-up Visit Follow-up Visit (Physician/PENSION ADVISER (Physician/PENSION ADVISER ) ) Arrival Mode Ambulatory, Ambulatory, Walker Walker Transfer Assistance None Accompanied by Patient Identification Verified (Name & Yes Yes ) Vital Signs Temperature (97.8 F-99.1 F) 96.7 F L 97.4 F L Temperature Source Temporal Temporal Pulse Rate (60-100) 73 75 Pulse Location Monitor Monitor Respiratory Rate (12-18) 18 18 Respiratory rate source Observation Observation Oxygen Delivery Method Room Air Room Air Blood Pressure (90/60-120/80) 153/81 H 133/73 H Blood Pressure Mean (mm Hg) 105 93 Source Monitor Monitor Position Sitting Semi-Fowlers Blood Pressure Location Left Arm Left Arm History Since Last Visit- (Skip if this is Patient's initial visit) Have you changed medications since your No No last visit? Any new allergies or adverse reactions No No Had a fall/change in ADL's that may No No increase risk of falls Signs or symptoms of abuse and/or No No neglect since last visit Have you been in the hospital since your No No last visit? Has dressing in place as prescribed Yes Yes Has compression in place as prescribed Yes Yes Has offloadiing in place as prescribed Yes Yes Experienced any changes in pain level or No No management Left Footwear Surgical Shoe Surgical Shoe with pressure with pressure relief insole relief insole Right Footwear Regular Shoe Regular Shoe Pain Scale: 0-10 Numeric Is Patient Pain Free? Yes Yes - Nurse 1 - General Ulcer Measurement Start: 03/30/24 11:11 Freq: Status: Active Protocol: Activity Type Activity Date Activity User E-sign Co-sign Detail Recorded Client Recorded Date Recorded By Document 03/30/24 11:11 [id number] 03/30/24 11:23 Document 04/06/24 11:24 [id number] 04/06/24 11:31 03/30/24 04/06/24 11:11 11:24 Wound Center Nurse 1 #1 LT 2ND TOE -Current Size (cm) - Length 0.1 0.1 -Current Size (cm) - Width 0.1 1 -Current Size (cm) - Depth 0.1 1 -Total Square Cm 0.01 0.1 -Date of Last Picture (Recall this 04/06/24 field) -Photo Taken No -Epithelialization None Present -Tunneling No -Undermining/Tunneling No -Circular Undermining No -Exudate Amt None Present None Present -Texture (Ondina-wound Skin Appearance) Assessed Assessed -Moisture (Ondina-wound Skin Appearance) Assessed Assessed -Color (Ondina-wound Skin Appearance) Assessed Assessed -Temperature (Ondina-wound Skin No Abnormality No Abnormality Appearance) (Pt Warm) (Pt Warm) -Tenderness on Palpation (Ondina-wound No No Skin Appearance) -Ulcer Cleansing Rinsed/ Rinsed/ Irrigated with Irrigated with Saline Saline -Foul Odor after Cleansing No No -Wound Comment(s) sutures intact Lower Limb Edema Present No Left Calf (cm) 44.7 Left Ankle (cm) 24 - Nurse 2 - General Ulcer CM Notes Start: 03/30/24 11:11 Freq: Status: Active Protocol: Activity Type Activity Date Activity User E-sign Co-sign Detail Recorded Client Recorded Date Recorded By Document 03/30/24 11:38 [id number] 03/30/24 11:39 Document 04/06/24 11:38 [id number] 04/06/24 11:39 03/30/24 04/06/24 11:38 11:38 Wound Center Nurse 2 #1 LT 2ND TOE -Correct Patient No No -Correct Side, Site, Position No No -Correct Procedure No No -Procedure Performed No No -Wound/Ulcer Outcome Healed- Not Healed Surgical Closure -Bleeding Controlled with Pressure -Treatment Response Procedure Tolerated Well -Offloading Yes -Type of Offloading Surgical Shoe Pain Scale: 0-10 Numeric Is Patient Pain Free? Yes Yes - Nurse 3 - General Ulcer D/C NN Start: 03/30/24 11:11 Freq: Status: Active Protocol: Activity Type Activity Date Activity User E-sign Co-sign Detail Recorded Client Recorded Date Recorded By Document 03/30/24 11:39 [id number] 03/30/24 11:40 03/30/24 11:39 Wound Care Center Nurse 3 #1 LT 2ND TOE -Ulcer Cleansing Rinsed/ Irrigated with Saline -Foul Odor after Cleansing No -Primary Dressing Applied NonAdherent Contact Layer -Primary Dressing Covered/Secured with Dry Gauze & Roll Gauze, Secured with Tape -Wound Comment(s) Betadine soaked adaptic applied to incision surgical site. Left -Compression Wrap Douglas Wrap Pain Scale: 0-10 Numeric Is Patient Pain Free? Yes WC - Visit Discharge Discharge Condition Stable Ambulatory Status Ambulatory, Walker Transportation Private Auto Accompanied by Medication Reconcilliation completed & Yes provided to patient/care provider Clinical Summary of Care Provided Yes Assessment/Plan Assessment/Plan (1) Other hammer toe(s) (acquired), left foot: CODE(S): M20.42 - Other hammer toe(s) (acquired), left foot PLAN: Patient was examined and evaluated. All findings were discussed with the patient. All questions were answered to the patient's satisfaction. A few of the sutures were removed from the left foot at the level of the plantar digits and 1 dorsal suture. All incisions were dressed with Betadine soaked Adaptic dry sterile dressing and compression wrap. Patient will be partial weightbearing to heel with surgical shoe and assistance of a walker to the left lower extremity. Patient be given an order for a three-view nonweightbearing radiographs to be done at the hospital as you do not have a Ortho posterior here at the wound care center. Overall the patient is graft for his care. Patient will return to wound care center to follow-up with Dr. Nuno in 1 week for suture removal. (2) Non-pressure chronic ulcer of other part of left foot with fat layer exposed: CODE(S): L97.522 - Non-pressure chronic ulcer of other part of left foot with fat layer exposed
--- NOTE | 2024-04-06 13:50 | RAD_ITS ---
STUDY: X-RAY - LEFT FOOT CLINICAL: Male, 68 years old. Foot pain. TECHNIQUE: 3 view(s) of the foot. COMPARISON: January 30, 2024 FINDINGS: Stable osteopenia. Moderate arthrosis of the tibiotalar joint. Stable superior and inferior spurs. Moderate arthrosis of the subtalar joint unchanged Moderate arthrosis of the mid foot with pes planus deformity. Moderate arthrosis of the TMT joints. Moderate arthrosis of the MTP and IP joints. Fusion of the PIP joint of the second digit with resection of the distal phalanx and the distal aspect of the middle phalanx of the second digit. Small bony fragments projected laterally at the resection site of the second digit. Marked soft tissue swelling of the second toe. Hammertoe deformities. RAD/Foot min 3 Views IMPRESSION: Osteopenia with stable osteoarthritic changes. Postfusion changes at the PIP joint of the second digit with resection of the distal aspect of the middle and distal phalanges of the second digit with marked soft tissue swelling of the second digit. Electronically Signed: Chay Myers MD at 14:21 EDT ,
== END 2024-04-11 23:59 | disposition home or self-care (01) ==
LOC: WC 11:15
PROVIDERS: PCP Family Medicine; Referring Provider Family Medicine; Visit Provider Podiatrist Foot & Ankle Surgery
DX: L97.522 Non-pressure chronic ulcer of other part of left foot with fat layer exposed (principal); M20.42 Other hammer toe(s) (acquired), left foot; Z79.82 Long term (current) use of aspirin; Z79.890 Hormone replacement therapy; Z79.899 Other long term (current) drug therapy
CPT/HCPCS: 73630; 99213; G0463

== ENCOUNTER 2024-04-27 11:15 | Outpatient (RCR) | payer BC, SELFPAY ==
[2024-04-12 00:15] VITALS: BP 122/55; PULSE 123; RESP 18; TEMP 36.9
[2024-04-13 10:55] VITALS: BP 104/61; PULSE 69; RESP 18; TEMP 36.2
--- NOTE | 2024-04-13 21:32 | PCM.WC.PN ---
History of Present Illness Date of Service: 04/13/24 Chief Complaint: Left second digit ulcer History of Wound: Left second digit ulcer referred by Burton Fay for evaluation and possible surgery Subjective Subjective Mr. Ashby is a 68-year-old male presenting the wound care center today for follow-up evaluation of status post open flexor tenotomy and percutaneous capsulotomy to the third digit left foot followed by incision bone cortex with advancement flap closure to the second digit as well as with PIPJ arthrodesis and open flexor tenotomy to the second digit left foot. DOS: 03/18/2024. Patient is recovering well. Denies any pain to the left foot. He has been partial weightbearing with surgical shoe and walker. Denies trauma. Denies constitutional symptoms. Other pedal complaints at this time Objective Data Objective Data Vital Signs: Vital Signs Temp Pulse Resp BP O2 Del Method 97.1 F L 69 18 104/61 Room Air 04/13/24 10:55 04/13/24 10:55 04/13/24 10:55 04/13/24 10:55 04/13/24 10:55 Oxygen Delivery Method Room Air Physical Exam Narrative Vascular: DP and PT pulses are triphasic on Doppler to left lower extremity. CFT is brisk. No evidence of flap failure. Skin temperature great is warm to warm from proximal ankle to distal digits to left lower extremity. No focal increase is noted. Neurological: Light touch intact. Patient response to painful stimuli. Dermatological: All incisions to the second and third digit of left foot are well coapted with suture. Incision has evidence of sanguinous crust. CFT is brisk to the second digit flap. No evidence of flap failure or necrotic tissue appreciated. There is evidence of serous blister to the dorsal medial aspect of the second digit. Musculoskeletal: No pain on palpation to the incision to the left second and third digit. No pain with calf pressure. 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 Any new allergies or adverse reactions No Had a fall/change in ADL's that may No increase risk of falls Signs or symptoms of abuse and/or No neglect since last visit Have you been in the hospital since your No last visit? Has dressing in place as prescribed Yes Has compression in place as prescribed Yes Has offloadiing in place as prescribed Yes Experienced any changes in pain level or No management Left Footwear Surgical Shoe with pressure relief insole Right Footwear Regular Shoe Pain Scale: 0-10 Numeric Is Patient Pain Free? Yes WC - Nurse 1 - General Ulcer Measurement Start: 04/13/24 10:55 Freq: Status: Active Protocol: Activity Type Activity Date Activity User E-sign Co-sign Detail Recorded Client Recorded Date Recorded By Document 04/13/24 10:55 ZACH [id number] 04/13/24 11:02 KW 04/13/24 10:55 Wound Center Nurse 1 #1 LT 2ND TOE -Current Size (cm) - Length 0.1 -Current Size (cm) - Width 0.1 -Current Size (cm) - Depth 0.1 -Total Square Cm 0.01 -Exudate Amt None Present -Texture (Ondina-wound Skin Appearance) Assessed -Moisture (Ondina-wound Skin Appearance) Assessed -Color (Ondina-wound Skin Appearance) Assessed -Temperature (Ondina-wound Skin No Abnormality Appearance) (Pt Warm) -Tenderness on Palpation (Ondina-wound No Skin Appearance) -Ulcer Cleansing Rinsed/ Irrigated with Saline -Foul Odor after Cleansing No -Wound Comment(s) sutures intact WC - Nurse 2 - General Ulcer CM Notes Start: 04/13/24 10:55 Freq: Status: Active Protocol: Activity Type Activity Date Activity User E-sign Co-sign Detail Recorded Client Recorded Date Recorded By Document 04/13/24 11:23 JF [id number] 04/13/24 11:25 JF 04/13/24 11:23 Wound Center Nurse 2 -Correct Patient No -Correct Side, Site, Position No -Correct Procedure No -Procedure Performed No -Post Debridement (cm) - Length 0.1 -Post Debridement (cm) - Width 0.1 -Post Debridement (cm) - Depth 0.1 -Total Square (Post) (cm) 0.01 -Area of Debridement (cm) - Length 0.1 -Area of Debridement (cm) - Width 0.1 -Total Square (Area) (cm) 0.01 -Wound/Ulcer Outcome Not Healed Pain Scale: 0-10 Numeric Is Patient Pain Free? Yes WC - Nurse 3 - General Ulcer D/C NN Start: 04/13/24 10:55 Freq: Status: Active Protocol: Activity Type Activity Date Activity User E-sign Co-sign Detail Recorded Client Recorded Date Recorded By Document 04/13/24 11:46 [id number] 04/13/24 11:47 04/13/24 11:46 Wound Care Center Nurse 3 #1 LT 2ND TOE -Primary Dressing Applied NonAdherent Contact Layer -Other Dressing betadine soaked adaptic -Primary Dressing Covered/Secured with Dry Gauze & Roll Gauze, Secured with Tape Left -Compression Wrap Douglas Wrap Pain Scale: 0-10 Numeric Is Patient Pain Free? Yes Assessment/Plan Assessment/Plan (1) Other acute osteomyelitis, left ankle and foot: CODE(S): M86.172 - Other acute osteomyelitis, left ankle and foot PLAN: Patient was examined and evaluated. All findings were discussed with the patient. All questions were answered to the patient's satisfaction. 1 suture was removed from the proximal hammertoe incision that showed evidence of epidermal gapping. Attempted to remove the remaining sutures was not done due to concerns for delayed healing. Steri-Strip applied from the suture that was removed. Patient's incision was dressed with Betadine paint, Adaptic dry sterile dressing and single-layer compression wrap. Patient will be heel weightbearing as tolerated. Patient will follow-up with nursing staff in [address] Nuno in 2 weeks. He left the office pleased with this visit. (2) Other hammer toe(s) (acquired), left foot: CODE(S): M20.42 - Other hammer toe(s) (acquired), left foot (3) Other specified peripheral vascular diseases: CODE(S): I73.89 - Other specified peripheral vascular diseases
[2024-04-20 11:29] VITALS: BP 132/70; PULSE 69; RESP 18; TEMP 36.6
[2024-04-27 11:30] VITALS: BP 119/68; PULSE 58; RESP 18; TEMP 36.7
--- NOTE | 2024-04-27 12:13 | PCM.WC.PN ---
History of Present Illness Date of Service: 04/27/24 Chief Complaint: Left second digit ulcer History of Wound: Left second digit ulcer referred by Burton Fay for evaluation and possible surgery Subjective Subjective Mr. Gonzales is a 68-year-old male presenting to clinic today for follow-up evaluation of status post proximal interphalangeal joint arthrodesis with incision of bone cortex with advancement flap closure to left second digit. Plan is to take sutures out today. He has been weightbearing as tolerated in surgical shoe. He denies any drainage or pain to the left foot. Denies trauma. Denies constitutional symptoms. No other pedal complaints at this time. Patient will be having back surgery at [facility] sometime in May. Objective Data Objective Data Vital Signs: Vital Signs Temp Pulse Resp BP O2 Del Method 98.1 F 58 L 18 119/68 Room Air 04/27/24 11:30 04/27/24 11:30 04/27/24 11:30 04/27/24 11:30 04/27/24 11:30 Oxygen Delivery Method Room Air Physical Exam Narrative Vascular: DP and PT pulses are triphasic on Doppler to left lower extremity. CFT is brisk. No evidence of flap failure. Skin temperature great is warm to warm from proximal ankle to distal digits to left lower extremity. No focal increase is noted. Neurological: Light touch intact. Patient response to painful stimuli. Dermatological: All incisions to the second and third digit of left foot are well coapted with suture. Incision has evidence of sanguinous crust. CFT is brisk to the second digit flap. No evidence of flap failure or necrotic tissue appreciated. There is evidence of serous blister to the dorsal medial aspect of the second digit. Musculoskeletal: No pain on palpation to the incision to the left second and third digit. No pain with calf pressure. Debridement Note Debridement Note Post-Debridement Measurements and Additional Note: Post-Debridement Measurements/Treatment WC - Nurse 1 - General Ulcer Assessment Start: 04/13/24 10:55 Freq: Status: Active Protocol: NOHEMIEXConrado Activity Type Activity Date Activity User E-sign Co-sign Detail Recorded Client Recorded Date Recorded By Document 04/13/24 10:55 KW [id number] 04/13/24 11:02 KW Document 04/20/24 11:29 DL [id number] 04/20/24 11:42 DL Document 04/27/24 11:30 GM [id number] 04/27/24 11:37 04/13/24 04/20/24 04/27/24 10:55 11:29 11:30 - Today's Visit Information Type of service Follow-up Visit Nurse-only Follow-up Visit (Physician/REHABILITATION CONSULTANT Visit (Physician/REHABILITATION CONSULTANT ) ) Arrival Mode Ambulatory, Ambulatory, Ambulatory Walker Walker Transfer Assistance None Accompanied by Patient Identification Verified (Name & Yes Yes Yes ) Patient Requires Transmission-Based No No Precautions Vital Signs Temperature (97.8 F-99.1 F) 97.1 F L 97.9 F 98.1 F Temperature Source Temporal Temporal Temporal Pulse Rate (60-100) 69 69 58 L Pulse Location Monitor Monitor Monitor Respiratory Rate (12-18) 18 18 18 Respiratory rate source Observation Observation Observation Oxygen Delivery Method Room Air Room Air Blood Pressure (90/60-120/80) 104/61 132/70 H 119/68 Blood Pressure Mean (mm Hg) 75 90 85 Source Monitor Monitor Monitor Position Semi-Fowlers Sitting Blood Pressure Location Left Arm Right Arm History Since Last Visit- (Skip if this is Patient's initial visit) Have you changed medications since your No No No last visit? Any new allergies or adverse reactions No No No Had a fall/change in ADL's that may No No No increase risk of falls Signs or symptoms of abuse and/or No No No neglect since last visit Have you been in the hospital since your No No No last visit? Has dressing in place as prescribed Yes No Yes Has compression in place as prescribed Yes Yes Yes Has offloadiing in place as prescribed Yes Yes Yes Experienced any changes in pain level or No No No management Left Footwear Surgical Shoe Surgical Shoe with pressure with pressure relief insole relief insole Right Footwear Regular Shoe Pain Scale: 0-10 Numeric Is Patient Pain Free? Yes Yes Yes - Nurse 1 - General Ulcer Measurement Start: 04/13/24 10:55 Freq: Status: Active Protocol: Activity Type Activity Date Activity User E-sign Co-sign Detail Recorded Client Recorded Date Recorded By Document 04/13/24 10:55 KW [id number] 04/13/24 11:02 KW Document 04/20/24 11:29 DL [id number] 04/20/24 11:42 DL Document 04/27/24 11:30 GM [id number] 04/27/24 11:37 GM 04/13/24 04/20/24 04/27/24 10:55 11:29 11:30 Wound Center Nurse 1 #1 LT 2ND TOE -Current Size (cm) - Length 0.1 0.1 -Current Size (cm) - Width 0.1 0.1 -Current Size (cm) - Depth 0.1 0.1 -Total Square Cm 0.01 0.01 -Date of Last Picture (Recall this 04/27/24 field) -Photo Taken Yes -Exudate Amt None Present None Present -Wound Margin Distinct, Outline Attached -Structure Exposed N/A -Texture (Ondina-wound Skin Appearance) Assessed Scarring Assessed -Moisture (Ondina-wound Skin Appearance) Assessed Dry/Scaly Assessed -Color (Ondian-wound Skin Appearance) Assessed No Abnormality Assessed -Temperature (Ondina-wound Skin No Abnormality No Abnormality No Abnormality Appearance) (Pt Warm) (Pt Warm) (Pt Warm) -Tenderness on Palpation (Ondina-wound No Skin Appearance) -Ulcer Cleansing Rinsed/ Rinsed/ Irrigated with Irrigated with Saline Saline -Foul Odor after Cleansing No No No -Wound Comment(s) sutures intact Foot only post op, washed, sutures are Stitches intact intact to L 2nd toe. No drainage, denies pain. Betadine and gauze reapplied today. WC - Nurse 2 - General Ulcer CM Notes Start: 04/13/24 10:55 Freq: Status: Active Protocol: Activity Type Activity Date Activity User E-sign Co-sign Detail Recorded Client Recorded Date Recorded By Document 04/13/24 11:23 [id number] 04/13/24 11:25 Document 04/27/24 11:53 [id number] 04/27/24 11:57 04/13/24 04/27/24 11:23 11:53 Wound Center Nurse 2 #1 LT 2ND TOE -Correct Patient No No -Correct Side, Site, Position No No -Correct Procedure No No -Procedure Performed No No -Post Debridement (cm) - Length 0.1 0 -Post Debridement (cm) - Width 0.1 0 -Post Debridement (cm) - Depth 0.1 0 -Total Square (Post) (cm) 0.01 0 -Area of Debridement (cm) - Length 0.1 0 -Area of Debridement (cm) - Width 0.1 0 -Total Square (Area) (cm) 0.01 0 -Wound/Ulcer Outcome Not Healed Healed- Surgical Closure Pain Scale: 0-10 Numeric Is Patient Pain Free? Yes Yes - Nurse 3 - General Ulcer D/C NN Start: 04/13/24 10:55 Freq: Status: Active Protocol: Activity Type Activity Date Activity User E-sign Co-sign Detail Recorded Client Recorded Date Recorded By Document 04/13/24 11:46 KW [id number] 04/13/24 11:47 KW Document 04/20/24 11:29 DL [id number] 04/20/24 11:42 DL Document 04/27/24 12:03 DL [id number] 04/27/24 12:06 DL 04/13/24 04/20/24 04/27/24 11:46 11:29 12:03 Wound Care Center Nurse 3 #1 LT 2ND TOE -Primary Dressing Applied NonAdherent Contact Layer -Other Dressing betadine soaked Steri Strips adaptic -Primary Dressing Covered/Secured with Dry Gauze & Dry Gauze & Roll Gauze, Roll Gauze, Secured with Secured with Tape Tape Left -Compression Wrap Douglas Wrap -Tubular Bandage Single Layer -Size of Tubigrip Used Size E -Size E ($) 1 Treatment Response Procedure Tolerated Well Vital Signs Temperature (97.8 F-99.1 F) 97.9 F Temperature Source Temporal Pulse Rate (60-100) 69 Pulse Location Monitor Respiratory Rate (12-18) 18 Respiratory rate source Observation Blood Pressure (90/60-120/80) 132/70 H Blood Pressure Mean (mm Hg) 90 Source Monitor Pain Scale: 0-10 Numeric Is Patient Pain Free? Yes Yes Yes - Visit Discharge Discharge Condition Stable Ambulatory Status Walker Transportation Private Auto Notes: Discharged. To F/U with [facility]. Dressing applied today by Marta Drew. Assessment/Plan Assessment/Plan (1) Other acute osteomyelitis, left ankle and foot: CODE(S): M86.172 - Other acute osteomyelitis, left ankle and foot PLAN: Patient was examined and evaluated. All findings were discussed with the patient. All questions were answered to the patient's satisfaction. Sutures were removed from the hammertoe surgery to the second digit left foot without incident. All incisions were coapted after removal. No evidence of surgical wound dehiscence was appreciated. Steri-Strips applied followed by Betadine. Light gauze and Tubigrip were applied to left lower extremity. Patient can begin to shower starting tomorrow but not soak he was understanding of this. He will continue to ambulate and Tubigrip and surgical shoe until follow-up in private office with Dr. Nuno in 3 weeks. (2) Other hammer toe(s) (acquired), left foot: CODE(S): M20.42 - Other hammer toe(s) (acquired), left foot (3) Other specified peripheral vascular diseases: CODE(S): I73.89 - Other specified peripheral vascular diseases
--- NOTE | 2024-04-28 11:35 | WC ---
PHOTO 04/27/24 LEFT 2ND TOE
== END 2024-04-27 16:08 | disposition home or self-care (01) ==
LOC: WC 11:15
PROVIDERS: PCP Family Medicine; Referring Provider Family Medicine; Visit Provider Podiatrist Foot & Ankle Surgery
DX: L97.529 Non-pressure chronic ulcer of other part of left foot with unspecified severity (principal); M86.172 Other acute osteomyelitis, left ankle and foot; M20.42 Other hammer toe(s) (acquired), left foot; I73.89 Other specified peripheral vascular diseases; Z79.82 Long term (current) use of aspirin; Z79.890 Hormone replacement therapy; Z79.899 Other long term (current) drug therapy
CPT/HCPCS: 99213; G0463

== ENCOUNTER → 2024-06-02 | Outpatient (REF) | payer SELFPAY ==
[2024-06-02 08:51] LABS: Absolute Lymphocyte Count 1.31 X10^3/uL (0.83-4.51); Absolute Neutrophil Count 4.2 X10^3/uL (2.0-7.7); Basophil# 0.09 X10^3/uL; Basophil% 1.4 % (0-1); Eosinophil# 0.36 X10^3/uL; Eosinophils% 5.5 % (0-5); Hematocrit 37.9 % (40-54); Hemoglobin 12.6 g/dL (13.0-16.5); Lymphocyte # 1.31 X10^3/ul (0.83-4.51); Mean Corp Hgb Conc 33.2 g/dL (32-36); Mean Corpuscular Hgb 31.3 pg (27.0-32.0); Mean Platelet Vol. 10.2 fl (6.2-12.0); Monocyte# 0.51 X10^3/uL; Monocyte% 7.8 % (0-10); NRBC Flagged by Analyzer 0 % (0-5); Neutrophil # 4.24 X10^3/uL (2.7-7.7); Neutrophil % 64.5 % (47-70); Platelet Count 275 K/mm3 (150-450); RBC Distribution Width CV 12.7 % (11.6-14.6); Red Blood Count 4.03 M/mm3 (4.6-6.2); White Blood Count 6.6 K/mm3 (4.4-11.0)
[2024-06-02 09:19] LABS: ALB/GLOB Ratio 0.8 RATIO (0.9-2.4); AST(SGOT) 19 U/L (15-37); Alanine Aminotransfer ALT/SGPT 7 U/L (16-61); Albumin, Serum 2.8 g/dL (3.2-5.0); Alkaline Phosphatase 74 U/L (45-117); Anion Gap 4 (5-15); BUN 11 mg/dL (7-18); BUN/Creat Ratio 12.4 RATIO (10-20); Calcium,Total 8.5 mg/dL (8.5-10.1); Chloride 105 mmol/L (98-107); Creatinine, Serum 0.88 mg/dL (0.70-1.30); EST Glomerular Filtration Rate 90 mL/min (>60); Est Glom Filt Rate - Afr Amer 109 mL/min (>60); Globulin 3.3 g/dL (2.2-4.2); Glucose 99 mg/dL (74-106); Potassium 4.2 mmol/L (3.5-5.1); Protein, Total 6.1 g/dL (6.4-8.2); Sodium Level 138 mmol/L (136-145)
== END | disposition home or self-care (01) ==
LOC: OLS.WHLTCC 05:00
PROVIDERS: PCP Family Medicine; Visit Provider Internal Medicine
DX: J44.9 Chronic obstructive pulmonary disease, unspecified (principal)
CPT/HCPCS: 36415; 80053; 84443; 85025

== ENCOUNTER → 2024-06-17 | Outpatient (CLI) | payer BC, SELFPAY ==
--- NOTE | 2024-06-17 07:24 | US_ITS ---
INDICATION: LIVER MASS EXAMINATION: Ultrasound US Abdomen Complete TECHNIQUE: King-scale and color Doppler imaging was performed of the abdomen. COMPARISON: FINDINGS: LIVER: There is normal echotexture measuring 19.1 cm. Cystic nodules measuring 1.5 to 4.4 cm. No intrahepatic biliary ductal dilatation. There is no free fluid. GALLBLADDER AND BILIARY TREE: No shadowing gallstone, pericholecystic fluid or gallbladder wall thickening is demonstrated. Mild sludge and debris. The proximal common bile duct measures 4.3 mm, which is within normal limits for the patient''s age. SONOGRAPHIC ARCE''S SIGN: Negative. PANCREAS: Limited visualization of the pancreas. No pancreatic ductal dilatation. SPLEEN: The spleen is normal in size measuring 10.5 cm and homogeneous in echotexture. RIGHT KIDNEY: 13.1 x 6.6 x 5.6 cm. The cortex is 15 mm. There is no hydronephrosis. No shadowing calculus or perinephric collection is demonstrated. 7 mm cyst in possible 6 mm stone. LEFT KIDNEY: 13.1 x 5.6 x 6.5 cm. The cortex is 15 mm. There is no hydronephrosis. No shadowing calculus, focal lesion, or perinephric collection is demonstrated. VESSELS: Submitted longitudinal images of the intra-abdominal aorta demonstrate no gross abnormalities and are unremarkable. The IVC is patent. US/Abdomen Complete IMPRESSION: Hepatic cystic nodules. Sludge and debris in the gallbladder. Right renal cysts and possible stone. Electronically Signed: Bill Vee DO at 20:05 EST ,
== END | disposition home or self-care (01) ==
LOC: US 07:24
PROVIDERS: PCP Family Medicine; Referring Provider Family Medicine; Visit Provider Family Medicine
DX: R16.0 Hepatomegaly, not elsewhere classified (principal)
CPT/HCPCS: 76700

== ENCOUNTER → 2024-11-14 | Outpatient (CLI) | payer BC, SELFPAY ==
--- NOTE | 2024-11-14 14:40 | ART_ITS ---
Reason For Study Reason For Study: PVD Procedure A bilateral lower extremity continuous wave Doppler with analog waveform analysis,segmental pressures,and ankle brachial indexes without exercise. Left Segmental Pressures Left brachial= 132mmHg. Left posterior tibial artery = >254mmHg. Left dorsalis pedis artery = >254mmHg. Left digit = 100 mmHg. Right Segmental Pressures Right brachial= 137mmHg. Right posterior tibial artery = >254mmHg. Right dorsalis pedis artery = >254mmHg. Right digit = 93 mmHg. Indices The right ankle brachial index by the posterior tibial artery is NC. The right ankle brachial index by the dorsalis pedis is NC. The right digital-brachial index is 0.68. The left ankle brachial index by the posterior tibial artery is NC. The left ankle brachial index by the dorsalis pedis is NC. The left digital- brachial index is 0.73. VL/Lower Ext Art Exam w/o Exercis Interpretation Summary Right ROSA not able to be obtained due to non-compressible vessels. Doppler/PVR waveforms of the right leg normal at rest. TBI diminished, pedal/digit disease vs spasm. Left ROSA not able to be obtained due to non compressible vessels. Doppler/PVR w aveforms of the left leg normal at rest. TBI diminished, pedal/digit disease vs spasm. Ordering Physician: Ely Monsalve Referring Physician: Chun Schneider Performed By: Debi Lundy RDCS/RVT
== END | disposition home or self-care (01) ==
PROVIDERS: PCP Family Medicine; Referring Provider Physician Assistant; Visit Provider Physician Assistant
DX: I73.9 Peripheral vascular disease, unspecified (principal)
CPT/HCPCS: 93923

== ENCOUNTER → 2025-01-03 | Outpatient (CLI) | payer BC, SELFPAY ==
--- NOTE | 2025-01-03 13:03 | ECHOCS_ITS ---
Reason For Study Reason For Study: Valve Replacement Procedure This was a 2D Doppler, Color Flow transthoracic echocardiogram. The study was technically difficult. Contrast injection was performed. Exam performed in department. Left Ventricle Normal LV size. Left ventricular systolic function is normal. The left ventricular ejection fraction is 65 %. Stage 1 diastolic dysfunction. No regional wall motion abnormalities noted. Right Ventricle Normal RV size. Normal systolic function. Atria The left atrium is mildly enlarged. Normal right atrium. Mitral Valve There is mild mitral annular calcification. Tricuspid Valve Normal tricuspid valve. Aortic Valve Peak aortic valve gradient 63 mmHg. Mean aortic valve gradient 37 mmHg. Bioprosthetic aortic valve. Pulmonic Valve The pulmonic valve is not well visualized. Great Vessels Normal sized aortic root. The pulmonary artery is normal size. Pericardium/Pleural No pericardial effusion. Medication 22 gauge I.V. with prn adaptor inserted into left arm. Diluted definity 2ml given slow IV push to enhance endocardial definition. MMode/2D Measurements & Calculations LVIDd: 5.3 cm IVSd: 0.87 cm LVOT diam: 1.7 cm LVIDs: 3.6 cm LVPWd: 1.0 cm FS: 32.0 % LVOT area: 2.3 cm2 LAV(MOD-sp4): 83.3 ml LVAd ap4: 39.6 cm2 SV(MOD-sp4): 78.8 ml LVLd ap4: 8.4 cm SI(MOD-sp4): 31.5 ml/m2 EDV(MOD-sp4): 151.6 ml EDV(sp4-el): 159.2 ml LVAs ap4: 25.1 cm2 LVLs ap4: 7.3 cm ESV(MOD-sp4): 72.8 ml ESV(sp4-el): 73.6 ml EF(MOD-sp4): 52.0 % EF(sp4-el): 53.8 % SV(sp4-el): 85.7 ml LA A4 area: 25.0 cm2 LA dimension(2D): 5.7 cm RA A4 area: 21.3 cm2 Time Measurements MV dec time: 0.42 sec Doppler Measurements & Calculations MV E max jimmy: 128.3 cm/sec Lat Peak E' Jimmy: 6.3 cm/sec Med Peak E' Jimmy: 6.2 cm/sec MV A max jimmy: 171.8 cm/sec E/E' lat: 20.2 E/E' med: 20.6 MV E/A: 0.75 MV V2 max: 202.9 cm/sec MV P1/2t max jimmy: 143.2 cm/sec Ao V2 max: 397.1 cm/sec MV max P.5 mmHg MV P1/2t: 130.4 msec Ao max P.2 mmHg MV V2 mean: 106.5 cm/sec MV dec slope: 321.6 cm/sec2 Ao V2 mean: 284.2 cm/sec MV mean P.3 mmHg MVA(P1/2t): 1.7 cm2 Ao mean P.9 mmHg MV V2 VTI: 55.2 cm Ao V2 VTI: 78.5 cm MVA(VTI): 1.6 cm2 AV (velocity ratio): 0.49 ANGELICA(I,D): 1.1 cm2 ANGELICA(V,D): 0.94 cm2 LV V1 max: 162.9 cm/sec MR max jimmy: 563.0 cm/sec SV(LVOT): 87.8 ml LV V1 max P.6 mmHg MR max P.8 mmHg LV V1 mean P.1 mmHg LV V1 mean: 115.5 cm/sec LV V1 VTI: 38.2 cm ECHO/Echo Complete W/ Contrast Interpretation Summary Normal LV size. Left ventricular systolic function is normal. The left ventricular ejection fraction is 65 %. Stage 1 diastolic dysfunction. Mean aortic valve gradient 37 mmHg. Bioprosthetic aortic valve. Compared to the previous the gradients are mildly increased. Contrast injection was performed. Ordering Physician: Brittani Graham Referring Physician: Brittani Graham Performed By: Dean Glynn RCS
== END | disposition home or self-care (01) ==
PROVIDERS: PCP Family Medicine; Referring Provider Nurse Practitioner Gerontology; Visit Provider Nurse Practitioner Gerontology
DX: Z95.2 Presence of prosthetic heart valve (principal)
CPT/HCPCS: 93306; Q9957; A4216; C8929

== ENCOUNTER → 2025-02-16 | Outpatient (CLI) | payer BC, SELFPAY ==
[2025-02-16 13:17] LABS: PSA,Total- Diagnostic 0.25 ng/mL (0.00-4.00)
== END | disposition home or self-care (01) ==
LOC: MTLAB 09:56
PROVIDERS: PCP Family Medicine; Referring Provider Nurse Practitioner; Visit Provider Nurse Practitioner
DX: C61 Malignant neoplasm of prostate (principal); E29.1 Testicular hypofunction
CPT/HCPCS: 36415; 84153; 84403

== ENCOUNTER → 2025-03-08 | Outpatient (CLI) | payer BC, SELFPAY ==
--- NOTE | 2025-03-08 07:16 | CT_ITS ---
PROCEDURE: EXTREMITY UPPER WITHOUT CONTRA 03/08/2025 REASON FOR EXAM: PRIMARY OSTEOARTHRITIS TECHNIQUE: CT right shoulder coronal and Sagittal reconstruction series were provided. One or more dose reduction techniques were used (e.g., Automated exposure control, adjustment of the mA and/or kV according to patient size, use of iterative reconstruction technique. RADIATION DOSE SUMMARY: DLP: 1194 mGycm COMPARISON: None FINDINGS: There is severe osteoarthritis of the glenohumeral articulation with flattening of the articular surfaces, subcortical cyst formation, and marginal osteophytes. There are multiple corticated osteochondral fragments in the joint space with the largest in the superior joint space measuring 1.1 cm and in the anterior joint space measuring 1.1 cm. There is severe AC joint hypertrophy without evidence of separation. There is no suspicious lytic or blastic lesion. There is a mildly enlarged right axillary node measuring 1.2 x 2.7 cm, coronal image 36/100. There is no visible muscular atrophy. CT/Extremity Upper without Contra IMPRESSION: There is severe osteoarthritis of the glenohumeral articulation with flattening of the articular surfaces, subcortical cyst formation, and marginal osteophytes. There is a mildly enlarged right axillary node measuring 1.2 x 2.7 cm, coronal image 36/100. Reading Location: [facility]
--- OUTSIDE RECORDS SUMMARY | 2025-03-08 07:26 | XMS RPT_ITS | CCD ---
Author Organization [facility] Care Team Providers Care Well Logging Captain Name Role Phone Aury Schneider Primary Care Provider [phone] Dr. Aury Schneider Primary Care Provider Dr. Aury Schneider Referring Provider Mikie CERVANTES PA Shana Ardon Attending Provider Dr. Aury Schneider Primary Care Provider Dr. Aury Schneider Referring Provider [phone] Dr. Fritz Goode Attending Provider [phone] Fred Bond Attending Provider HELEN Reynolds Attending Provider Cecy Cespedes Attending Provider Unavailable HELEN Kothari Attending Provider Dr. Aury Schneider Primary Care Provider Dr. Aury Schneider Referring Provider Dr. Aury Schneider Primary Care Provider Dr. Aury Schneider Referring Provider Dr. Aury Schneider Primary Care Provider Dr. Aury Schneider Referring Provider Mikie CERVANTES PA Shana Ardon Attending Provider Dr. Doug Jenkins Admit Provider [phone] Dr. Doug Jenkins Referring Provider Dr. Doug Jenkins Other Provider HELEN Peter Other Provider Dr. Supriya Clark Attending Provider Dr. Supriya Clark Other Provider Dr. Yadi Hines Emergency Provider MD Alfredo Bennett Attending Provider Dr. Clemencia Mejia Admit Provider Dr. Clemencia Mejia Attending Provider Dr. Clemencia Mejia Other Provider Dr. Vane Collins Other Provider 1([facility])[phone] Fred Bond Attending Provider 1([facility])[phone] Fred Bond Other Provider Dr. Vane Collins Attending Provider 1([facility])[phone] Dr. Aury Schneider Primary Care Provider 1([facility])[phone] Dr. Aury Schneider Referring Provider 1([facility])[phone] Corie CERVANTES, PA Leo rAdon Attending Provider Karen Young Attending Provider Unavailable Dr. Tay Escoto Attending Provider [phone] Dr. Tay Escoto Other Provider 1([facility])[phone] Dr. Aury Schneider Primary Care Provider 1([facility])[phone] Dr. Aury Schneider Referring Provider 1([facility])[phone] Sumeet CERVANTES, PA Francisco Attending Provider [phone] Kamron WEATHERCASTER, WEATHERCASTER-C Juan Boland Attending Provider Dr. Aury Schneider Primary Care Provider 1([facility])[phone] Dr. Aury Schneider Referring Provider Kamron WEATHERCASTER, WEATHERCASTER-C Juan Boland Attending Provider Dr. Aury Schneider Primary Care Provider 1([facility])[phone] Dr. Aury Schneider Referring Provider 1([facility])[phone] Kamron WEATHERCASTER, WEATHERCASTER-C Jaun Boland Attending Provider Santos PUGH, WEATHERCASTER-Doyle Peter Attending Provider Santos WEATHERCASTER, WEATHERCASTER-C Brittnai Referring Provider Santos WEATHERCASTER, WEATHERCASTER-C Brittani Other Provider [phone] Dr. Fred Bond Attending Provider AURY SCHNEIDER DO Attending Unavailable AURY SCHNEIDER DO Primary Care Unavailable JOSÉ LUIS LPN RN HOSPICE-MAT WORKER, RENALDO Attending Unava ilable AURY SCHNEIDER DO Primary Care Unavailable Konstantin Brown (Historic) Primary Care Prov ider KONSTANTIN BROWN (HISTORIC) Primary Care U navailable ALFREDO GO Referring Unavailable AURY SCHNEIDER DO Primary Care Physician Dr. Aury Schneider DO Primary Care Provider Dr. Aury Schneider DO Referring Provider Leo Kothari Attending Provider [phone] Ely Rangel Attending Provider Ely Rangel Referring Provider [phone] Akbar Louis MD Attending Provider Dr. Aury Schneider DO Primary Care Provider Dr. Aury Schneider DO Referring Provider Santos WEATHERCASTER-C, Brittani Attending Provider [phone] AURY SCHNEIDER DO Primary Care Unavailable PATRICE CURTIS, DR YANEZ Attending Unavailabl e AURY SCHNEIDER DO Attending Unavailable AURY SCHNEIDER DO Primary Care Unavailable AURY SCHNEIDER DO Primary Care Unavailable AURY SCHNEIDER DO Attending Unavailable KELSEY OTTO MD Consulting Unavailable FAM CURTIS, KELSEY Attending Unavailable AURY SCHNEIDER DO Primary Care Unavailable FAM CURTIS, KELSEY Attending Unavailable AURY SCHNEIDER DO Primary Care Unavailable Santos PUGH-C, Brittani Referring Provider [phone] Dr. Fred Bond MD Attending Provider [phone] AURY SCHNEIDER DO Primary Care Unavailable AURY SCHNEIDER DO Attending Unavailable AURY SCHNEIDER DO Primary Care Unavailable JOSÉ LUIS LPN RN HOSPICE-MAT WORKER, RENALDO Attending Unava ilable Banner, Kena Attending Provider Banner, Kena Referring Provider Wyatt, Aury Referring Unavailable Wyatt, Aury Primary Care Unavailable Leo Kothari Attending Unavailable Irene PUGH, Jelly Attending Unavailable Wyatt, Aury Primary Care Unavailable Wyatt, Aury Referring Unavailable Monsalve, Ely Attending Unavailable Wyatt, Aury Primary Care Unavailable Oleghe OLS, Efewongbe Attending Unavailabl e Wyatt, Aury Primary Care Unavailable Wyatt, Aury Referring Unavailable Nuno Richie Attending Unavailable Wyatt, Aury Primary Care Unavailable Oleghe OLS, Efewongbe Attending Unavailabl e Wyatt, Aury Primary Care Unavailable Wyatt, Aury Primary Care Unavailable Santos WEATHERCASTER, Brittani Attending Unavailable Akbar Louis Attending Unavailable Ely Monsalve Referring Unavailable Wyatt, Aury Primary Care Unavailable Wyatt, Aury Primary Care Unavailable Wyatt, Aury Referring Unavailable NunoRichie Attending Unavailable Wyatt, Aury Primary Care Unavailable Wyatt, Aury Referring Unavailable Richie Nuno Attending Unavailable Emeterio Monsalveison Referring Unavailable Monsalve, Ely Attending Unavailable Wyatt, Aury Primary Care Unavailable Wyatt, Aury Referring Unavailable Wyatt, Aury Primary Care Unavailable Wyatt, Aury Attending Unavailable Wyatt, Uary Primary Care Unavailable Santos WEATHERCASTER, Brittani Referring Unavailable Santos WEATHERCASTER, Brittani Attending Unavailable Wyatt, Aury Primary Care Unavailable Nuno Richie Referring Unavailable Rcihie Nuno Attending Unavailable Oleghe OLS, Efewongbe Attending Unavailabl e Wyatt, Aury Primary Care Unavailable Wyatt, Aury Primary Care Unavailable Banner, Kena Referring Unavailable Banner, Kean Attending Unavailable Wyatt, Aury Primary Care Unavailable Doug Jenkins Attending Unavailable Oleghe OLS, Efewongbe Attending Unavailabl e Wyatt, Aury Primary Care Unavailable Oleghe OLS, Efewongbe Attending Unavailabl e Wyatt, Aury Primary Care Unavailable Oleghe OLS, Efewongbe Referring Unavailabl e Oleghe OLS, Efewongbe Attending Unavailabl e Wyatt, Aury Primary Care Unavailable Wyatt, Aury Primary Care Unavailable Oleghe, Efewongbe Attending Unavailable Irene WEATHERCASTER, Jelly Attending Unavailable Wyatt, Aury Primary Care Unavailable Wyatt, Aury Referring Unavailable Wyatt, Aury Primary Care Unavailable Ely Monsalve Attending Unavailable Wyatt, Aury Primary Care Unavailable Wyatt, Aury Referring Unavailable Graham WEATHERCASTER, Brittani Attending Unavailable Aury Schneider Primary Care Unavailable Fred Bond Attending Unavailable Aury Schneider Referring Unavailable Aury Schneider Primary Care Unavailable Fred Bond Attending Unavailable Aury Schneider Referring Unavailable Aury Schneider Primary Care Unavailable Ely Monsalve Attending Unavailable Allergies Allergy Classification Reported Allergen(s) Allergy Type Date of Onset Reaction(s) Facility Opioid Agonists (2 sources) HYDROmorphone Drug Allergy 1 Nausea And Vomiting [facility] (14 sources) HYDROmorphone; Translations: [hydromorphone HCl] Drug Allergy 2 Other, nausea, confusion [facility] (13 sources) HYDROmorphone; Translations: [HYDROMORPHONE] Drug Allergy 6 Nausea And Vomiting, Vomiting, Vomiting (disorder) [facility] Comment on above: Severe Vomiting (1 source) HYDROmorphone Drug Allergy 5 [facility] Repository Medications Current Medications Medication Drug Class(es) Dates Sig (Normalized) Sig (Original) acetaminophen 500 mg oral capsule (20 sources) Start: 05-16-2024 acetaminophen 500 mg oral capsule Dose : 1,000 mg = 2 cap(s), Oral, q4h, PRN for pain, # 120 cap(s), 0 Refill(s) Start Date: 05/16/24 Status: Ordered Quantity: 120.0 Unit: cap(s) Repeat number: 1 Start: 06-13-2022 End: 12-04-2022 take 2 tablets by mouth every eight hours Acetaminophen 500 mg tablet Discontinued 1000 mg PO EVERY 8 HOURS June 27, 2022 4:31pm December 04, 2022 8:20am pain Start: 06-13-2022 End: 12-04-2022 take 1000 mg by mouth every eight hours Acetaminophen Discontinued 1000 MG PO EVERY 8 HOURS June 27, 2022 4:31pm December 04, 2022 8:20am Start: 05-16-2021 take 500 mg by mouth twice daily Acetaminophen Active 500 MG PO TWICE A DAY May 15, 2021 11:00pm Start: 11-26-2020 take 650 mg by mouth every four hours as needed for pain, then take 4000 mg by mouth every twenty-four hours as needed for pain 650 mg, Oral, EVERY 4 HOURS PRN, Pain Mild (1-3), Fever, Fever >100.5 F (38 C), Starting on 11/26/20 at 0910 Maximum dose of acetaminophen is 4000 mg from all sources in 24 hours. Post-op acetaminophen 325 mg / HYDROcodone bitartrate 5 mg oral tablet (18 sources) Opioid Agonist Start: 12-19-2024 End: 12-24-2024 [place] 325- 5 mg oral tablet Dose = 1 tab(s), Oral, q4h, PRN Pain, scale 1-6, X 5 day(s), # 12 tab(s), 0 Refill(s), Pharmacy: [facility]/pharmacy #[id number], Acute post-operative pain, 172.7, cm, 12/19/24 9:05:00 EDT, Height, 142, kg, 12/19/24 9:05:00 EDT, Dosing Weight Start Date: 12/19/24 Stop Date: 12/24/24 Status: Ordered Quantity: 12.0 Unit: tab(s) Repeat number: 1 Indications: Other acute postprocedural pain; Start: 09-24-2023 End: 03-15-2024 Hydrocodone-Acetaminophen 5- 325 mg tablet Discontinued 1 {tbl} PO EVERY 6 HOURS NEEDED as needed for Pain 10 3 0 February 20, 2024 March 15, 2024 10:24am Acute pain of left hip Acute pain of left thigh 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 Pain in left hip Pain in left thigh Broken internal left hip prosthesis, initial encounter Start: 09-24-2023 take 1 tablet by edwin th every six hours as needed Hydrocodone-Acetaminophen Active 1 TABLE T PO EVERY 6 HOURS NEEDED 10 3 September 24, 2023 Start: 10-06-2021 take 1 tablet by edwin th every four hours as needed Hydrocodone-Acetaminophen Active 1 TABLE T PO EVERY 4 HOURS NEEDED 14 October 06, 2021 amoxicillin 500 mg oral capsule (1 source) Penicillin-class Antibacterial Start: 04-15-2021 amoxicillin (AMOXIL) 500 MG capsule Indications: S/P TAVR (transcatheter aortic valve replacement) Take 4 capsules 30 to 60 minutes before dental procedure. 4 capsule 3 04/15/2021 Active B COMPLEX VITAMINS SYRUP (3 sources) Start: 07-19-2009 B COMPLEX DAVIS MINS SYRUP 1ml per day 0 07/19/2009 Active B12 (2 sources) Start: 06-26-2022 B12 Active SL/ PO June 26, 2022 12:00am Start: 06-26-2022 B12 Active Dec ember 2021 12:00am benazepril hydrochloride 40 mg oral tablet (20 sources) Angiotensin Converting Enzyme Inhibitor Start: 07-12-2019 take 1 tablet by mouth once daily Benazepril 40 MG tablet Active 40 mg PO DAILY July 12, 2019 1:00am blood pressure bisacodyl 5 mg delayed release oral tablet (1 source) Stimulant Laxative Start: 11-26-2020 take 5 mg by mouth once daily as needed for constipation 5 mg, Oral, DAILY PRN, Constipation, Starting on Thu11/26/20 at 0910 First line therapy for constipation. Post-op calcium carbonate 1500 mg oral tablet (3 sources) Start: 09-04-2023 calcium (as carbonate) 600 mg oral tablet Dose : 1,200 mg = 2 tab(s), Oral, qDay, 0 Refill(s) Start Date: 09/04/23 Status: Ordered Repeat number: 1 calcium carbonate 1250 mg / cholecalciferol 600 unt oral tablet (5 sources) Vitamin D Start: 03-18-2024 Calcium Carbonate-Vitami n D3 (Os-Andrew 500 + D3) 500 mg-15 mcg (600 unit) tablet Active 1 {tbl} PO DAILY 90 90 0 March 18, 2024 12:00am ciclopirox 7.7 mg/ml topical cream (3 sources) Start: 01-29-2016 ciclopirox (LOPROX) 0.77 % cream Indications: Tinea pedis of both feet Apply 1 application to affected area twice daily. 60 g 1 01/29/2016 Active diclofenac sodium 0.01 mg/mg topical gel (8 sources) Nonsteroidal Anti-inflammatory Drug Start: 09-18-2023 Diclofenac Sodium (Voltaren Arthritis Pain) 1 % gel Active 2 g TOPICAL ONCE as needed for pain September 18, 2023 1:00am apply to single elbow, wrist or hand; for hand includes palm/fingers/terrie k of hand Start: 09-18-2023 Diclofenac Sod ium (Voltaren Arthritis Pain) 1 % gel Active 2 GM TOPICAL ONCE March 8th, 2024 1:00am apply to single elbow, wrist or hand; for hand includes palm/fingers/back of hand DME MISCellaneous (3 sources) Start: 03-21-2024 DME MISCellane ous See Instructions, BD SYRINGE 3ML, NEEDLES 25G-1.5 INCHES. USE ONE SYRINGE Q 2WEEKS., # 6 EA, 11 Refill(s), [id number], 175, cm, 03/08/24 8:07:00 EDT, Height, 137.2, kg, 03/08/24 8:07:00 EDT, Dosing Weight Start Date: 03/21/24 Status: Ordered Quantity: 6.0 Unit: EA Repeat number: 12 Start: 03-21-2024 DME MISCellane ous See Instructions, BD SYRINGE 3ML, NEEDLES 25G-1.5 INCHES. USE ONE SYRINGE Q 2WEEKS., # 6 EA, 11 Refill(s), [id number], 175, cm, 03/08/24 8:07:00 EDT, Height, 137.2, kg, 03/08/24 8:07:00 EDT, Dosing Weight Start Date: 03/21/24 Status: Ordered docusate sodium 50 mg / sennosides, skilled nursing 8.6 mg oral tablet (17 sources) Start: 06-26-2022 take 2 tablets by mouth at bedtime Sennosides-Docusate Sodium (Stool Softener-Stimulant Laxat) 8.6-50 mg tablet Active 2 TABLET PO AT BEDTIME June 26, 2022 9:56pm Start: 06-13-2022 End: 06-26-2022 Sennosides-Docusate Sodium ( Stool Softener-Stimulant Laxat) 8.6-50 mg Tablet Discontinued 2 {tbl} PO TWICE A DAY 28 7 0 June 13, 2022 1:00am June 26, 2022 10:56pm ergocalciferol 1.25 mg oral capsule (20 sources) Provitamin D2 Compound Start: 09-27-2024 take 1 capsule by mouth every week ergocalciferol 50,000 intl units (1.25 mg) oral capsule 1 cap(s), Oral, qWeek, # 13 cap(s), 1 Refill(s), Pharmacy: [facility]/pharmacy #[id number], 175, cm, 08/12/24 9:18:00 EST, Height, kg, 08/12/24 9:18:00 EST, Dosing Weight Start Date: 09/27/24 Status: Ordered Quantity: 13.0 Unit: cap(s) Repeat number: 2 Start: 10-23-2022 take 1 capsule by mo [facility] every week ergocalciferol 50,000 intl units (1.25 mg) oral capsule 1 cap(s), Oral, qWeek, # 13 cap(s), 1 Refill(s), Pharmacy: [facility]/pharmacy #[id number], 175, cm, 09/01/22 10:29:00 EST, Height, kg, 09/01/22 10:29:00 EST, Dosing Weight Start Date: 10/23/22 Status: Ordered Start: 08-19-2020 Ergocalciferol (Vitamin D2) 50,000 UNIT capsule Active 41270 U PO Q7D August 19, 2020 1:00am supplement on sundays ERGOCALCIFEROL P O Take 50,000 Int'l Units by mouth once a week 0 Active ERGOCALCIFEROL P O Take 50,000 Int'l Units by mouth once a week 0 Suspended famotidine 20 mg oral tablet (3 sources) Histamine-2 Receptor Antagonist Start: 06-13-2022 take 20 mg by mouth once daily Famotidine Active 20 MG PO DAILY 14 June 13, 2022 12:00am fluticasone propionate 0.05 mg/actuat metered dose nasal spray (2 sources) Corticosteroid Start: 12-05-2020 take 2 spray(s) nasal route once daily fluticasone (FLONASE) 50 MCG/ACT nasal spray 2 sprays by Each Nostril route daily 1 Bottle 5 12/05/2020 Active Folic Acid (20 sources) Start: 10-15-2021 folic acid Dos e : 800 mcg =, qDay, 0 Refill(s) Start Date: 10/15/21 Status: Ordered Repeat number: 1 Start: 10-15-2021 folic acid Dos e : 800 mcg =, qDay, 0 Refill(s) Start Date: 10/15/21 Status: Ordered Start: 03-09-2017 take 1 tablet by [facility] once daily Folic Acid 0.8 MG tablet Active 0.8 mg PO DAILY March 09, 2017 12:00am supplement folic acid 800 m cg tablet Take 400 mcg by mouth once daily. Active Folic Acid 0.8 M G CAPS Take by mouth daily 0 Active furosemide 40 mg oral tablet (20 sources) Loop Diuretic Start: 07-19-2009 End: 01-23-2024 take 1 tablet by mouth once daily Furosemide 40 MG tablet Active 40 mg PO DAILY February 14, 2015 12:00am diuretic/water pill levothyroxine sodium 0.05 mg oral tablet (16 sources) l-Thyroxine Start: 10-27-2024 take 1 tablet by mouth once daily levothyroxine 50 mcg (0.05 mg) oral tablet 1 tab(s), Oral, qDay, X30 DAY(S. TAKE ON AN EMPTY STOMACH, # 90 tab(s), 1 Refill(s), Pharmacy: [facility]/pharmacy #[id number], 175, cm, 08/12/24 9:18:00 EST, Height, kg, 08/12/24 9:18:00 EST, Dosing Weight Start Date: 10/27/24 Status: Ordered Quantity: 90.0 Unit: tab(s) Repeat number: 2 Start: 08-14-2023 take 1 tablet by edwin th once daily levothyroxine 50 mcg (0.05 mg) oral tablet 1 tab(s), Oral, qDay, X30 DAY(S. TAKE ON AN EMPTY STOMACH, # 90 tab(s), 1 Refill(s), Pharmacy: [facility] STORE [id number], 175, cm, 07/27/23 7:38:00 EST, Height, kg, 07/27/23 7:38:00 EST, Dosing Weight Start Date: 08/14/23 Status: Ordered Start: 05-12-2023 take 1 tablet by edwin th once daily Levothyroxine 50 mcg tablet Active 50 ug PO DAILY May 12, 2023 12:00am lisdexamfetamine dimesylate 70 mg oral capsule (20 sources) Central Nervous System Stimulant Start: 12-06-2024 End: 01-05-2025 take 1 capsule by mouth once daily in the morning Lisdexamfetamine (Vyvanse) 70 mg capsule Active 70 mg PO EVERY MORNING 0 December 13, 2024 12:00am Start: 03-15-2024 End: 06-24-2024 take 1 capsule by mouth once daily Lisdexamfetamine 60 mg capsule Discontinued 60 mg PO DAILY 20 20 0 June 04, 2024 June 23, 2024 1:00am June 24, 2024 1:10am Attention deficit hyperactivity disorder (ADHD) Attention-deficit hyperactivity disorder, unspecified type Start: 03-09-2017 End: 03-15-2024 take 1 capsule by mouth once daily Lisdexamfetamine 50 MG capsule Discontinued 60 mg PO DAILY March 09, 2017 12:00am March 15, 2024 10:25am ADHD Start: 03-09-2017 take 60 mg by mouth once daily Lisdexamfetamine Active 60 MG PO DAILY March 09, 2017 12:00am take 1 capsule by mo ut once daily Lisdexamfetamine Dimesylate (VYVANSE) 60 MG CAPS Take by mouth daily. 0 Active lisinopril 20 mg oral tablet (4 sources) Angiotensin Converting Enzyme Inhibitor Start: 11-26-2020 take 40 mg by mouth once daily 40 mg, Oral, DAILY, First dose on Thu11/26/20 at 0930 Hold on operative day for SBP less than 120. Substituted for Benazepril (LOTENSIN). take 1 tablet by mouth once [place] y lisinopril (ZESTRIL, PRINIVIL) 40 mg tablet Take 40 mg by mouth once daily. Active metaxalone 800 mg oral tablet (3 sources) take 1 tablet by mouth three times daily metaxalone (SKELAXIN) 800 mg tablet Take 800 mg by mouth three times daily. Active montelukast 10 mg oral tablet (3 sources) Leukotriene Receptor Antagonist take 1 tablet by mouth once daily at bedtime montelukast 10 mg tablet Take 10 mg by mouth daily at bedtime. Active niacin 500 mg oral tablet (20 sources) Nicotinic Acid Start: take 3 tablets by mouth at bedtime Niacin 500 mg tablet Active 1500 mg PO AT BEDTIME December 13, 2024 1:25pm supplement Start: 10-15-2021 niacin 500 mg oral capsule Dose : 1,000 mg = 2 cap(s), Oral, qDay, 0 Refill(s) Start Date: 10/15/21 Status: Ordered Repeat number: 1 Start: 02-14-2015 End: 12-13-2024 take 1 tablet by mouth at bedtime Niacin 500 MG tablet Discontinued 500 mg PO AT BEDTIME February 14, 2015 12:00am December 13, 2024 1:25pm supplement Start: 07-19-2009 niacin(NIASPAN 500 MG TAB) Take one(1) tablet daily. 0 07/19/2009 Active take 1 capsule by mo [facility] once daily niacin 500 MG extended release capsule Take 500 mg by mouth nightly 0 Active omega-3 acid ethyl esters (skilled nursing) 1000 mg oral capsule (20 sources) Start: 11-09-2024 take 2 capsules by mouth twice daily omega-3 polyunsaturated fatty acids ethyl esters 1000 mg oral capsule 2 cap(s), Oral, BID, # 360 cap(s), 1 Refill(s), Pharmacy: [facility]/pharmacy #[id number], 175, cm, 11/09/24 8:35:00 EDT, Height, kg, 11/09/24 8:35:00 EDT, Dosing Weight Start Date: 11/09/24 Status: Ordered Quantity: 360.0 Unit: cap(s) Repeat number: 2 Start: 02-14-2015 [place]-3 Acid E thyl Esters 1 GM capsule Active 2 NMA PO DAILY February 14, 2015 12:00am supplement Start: 07-19-2009 take 2 capsules by [facility] twice daily omega-3 polyunsaturated fatty acids ethyl esters 1000 mg oral capsule 2 cap(s), Oral, BID, # 360 cap(s), 1 Refill(s), Pharmacy: [facility] STORE [id number], 175, cm, 09/28/23 9:52:00 EDT, Height, kg, 09/28/23 9:52:00 EDT, Dosing Weight Start Date: 09/28/23 Status: Ordered pantoprazole 40 mg delayed release oral tablet (1 source) Proton Pump Inhibitor Start: 11-26-2020 take 40 mg by mouth once daily 40 mg, Oral, DAILY, First dose on Thu11/26/20 at 0930 Do not crush or break. Post-op perflutren lipid microspheres (DEFINITY) injection 1.65 mg (3 sources) Start: 01-02-2021 End: 01-05-2021 perflutren lipid microspheres (DEFINITY) injection 1.65 mg Start: 11-26-2020 End: 11-29-2020 1.65 mg (1.5 mL), Intravenou s, IMG ONCE PRN, Other, Suboptimal Echo Image, Starting on Thu11/26/20 at 0910, For 72 hours Administer up to 1.65 mg via slow IVP for suboptimal echocardiogram enhancement. May administer as concentrated dose or diluted in 8.5 mL of 0.9% sodium chloride for a total volume of 10 mL. May administer as divided doses to reach optimal image enhancement. Start: 11-26-2020 End: 11-29-2020 perflutren lipid microsphere s (DEFINITY) injection 1.65 mg microencapsulated potassium chloride 20 meq extended release oral tablet (20 sources) Start: 11-27-2020 End: 11-27-2020 20 mEq, Oral, DAILY, First d ose on Thu11/27/20 at 0900 Dilute with at least 4 ounces of cold water. May further dilute if GI adverse effects occur. Start: 02-14-2015 take 1 tablet by edwin th once daily Potassium Chloride 20 MEQ tablet Active 20 meq PO DAILY February 14, 2015 12:00am supplement Start: 02-14-2015 take 20 mEq by mouth once [place] y Potassium Chloride Active 20 MEQ PO DAILY February 14, 2015 12:00am Start: 07-19-2009 take 1 tablet by edwin th once daily potassium chloride(KLOR-CON 20 MEQ ORAL PACKET) Take one(1) tablet daily. 0 07/19/2009 Active pregabalin 100 mg oral capsule (20 sources) Start: 01-25-2021 End: 01-05-2025 take 1 capsule by mouth three times daily Pregabalin 100 mg capsule Active 100 mg PO THREE TIMES A DAY January 25, 2021 12:00am pain Start: 01-25-2021 End: 01-02-2021 take 100 mg by mouth three times daily Pregabalin Active 100 MG PO THREE TIMES A DAY January 25, 2021 12:00am Start: 11-26-2020 pregabalin (LY NAVEEN) capsule 100 mg Start: 03-09-2017 End: 01-25-2021 Pregabalin 75 mg capsule Discontinued 100 mg PO THREE TIMES A DAY November 17, 2018 9:35am Fawn 16th, 2021 9:10am PAIN Start: 03-09-2017 End: 01-25-2021 take 100 mg by mouth three times daily Pregabalin Discontinued 100 MG PO THREE TIMES A DAY November 17, 2018 9:35am January 25, 2021 9:10am take 1 capsule by [facility] three times daily pregabalin (LYRICA) 100 mg capsule Take 100 mg by mouth three times daily. Active take 1 capsule by [facility] three times daily pregabalin (LYRICA) 75 MG capsule Take 75 mg by mouth 3 times daily. 0 Suspended sildenafil 100 mg oral tablet (20 sources) Phosphodiesterase 5 Inhibitor Start: 11-04-2021 take 1 tablet by mouth once daily as needed Sildenafil 100 mg tablet Active 100 mg PO DAILY as needed for Erectile Dysfunction November 04, 2021 12:00am 3 ml sodium chloride 9 mg/ml injection (5 sources) Start: 01-02-2021 End: 01-05-2021 sodium chloride flush 0.9 % injection 5-40 mL Start: 11-26-2020 End: 11-29-2020 5-40 mL, Intravenous, PRN, L ine Care, Per Heart Nurse Request, Starting on Thu11/26/20 at 0910, For 72 hours May use order for Line Care after every IV line use and Agitated Saline Bubble Study. Administration for Bubble Study per ammunition officer request for only. Remove 1 mL 0.9% sodium chloride from 10 mL syringe for creating agitated saline. If following IV push medication, administer flush at same rate as the IV push. Flush volume is determined by type of infusion therapy being given. For non-viscous solutions use: Peripheral IV = 5 mL Midline or Central Line = 10 mL/lumen For viscous solutions (i.e. blood components, parenteral nutrition, contrast media, or after obtaining blood sample) use: Peripheral IV = 10 mL Midline or Central Line = 20 mL/lumen Start: 11-26-2020 End: 11-29-2020 sodium chloride flush 0.9 % injection 5-40 mL Start: 11-26-2020 End: 11-26-2020 0.9 % sodium chloride infusi on testosterone cypionate 100 mg/ml injectable solution (20 sources) Androgen Start: 02-14-2015 inject 1 mL by intramuscular injection every other week Testosterone Cypionate 100 MG/ML oil Active 1 mL IM Q14D February 14, 2015 12:00am hormone On Hold: Ordered Testosterone Cyp ionate (DEPO-TESTOSTERONE IM) Inject 1 mL into the muscle every 14 days 0 Active Testosterone Cyp ionate (DEPO-TESTOSTERONE IM) Inject 1 mL into the muscle every 14 days 0 Suspended TESTOSTERONE AND ESTRADIOL CYP (DEPO-TESTADIOL INTRAMUSC.) (3 sources) TESTOSTERONE AND ESTRADIOL CYP (DEPO-TESTADIOL INTRAMUSC.) Inject intramuscularly. Active Testosterone Cypionate 200 mg/mL intramuscular solution (3 sources) Start: 11-09-2024 End: 02-07-2025 inject 1 dose by intramuscular injection every other week Testosterone Cypionate 200 mg/mL intramuscular solution Dose : 400 mg = 2 mL, Intramuscular, q2wk, # 4 mL, 2 Refill(s), Pharmacy: [id number], Male hypogonadism, 175, cm, 11/09/24 8:35:00 EDT, Height, 147, kg, 11/09/24 8:35:00 EDT, Dosing Weight Start Date: 11/09/24 Stop Date: 02/07/25 Status: Ordered Quantity: 4.0 Unit: mL Repeat number: 3 Indications: Testicular hypofunction; Start: 03-21-2024 End: 06-19-2024 inject 1 mL by intramuscular injection every other week Testosterone Cypionate 200 mg/mL intramuscular solution Dose : 200 mg = 1 mL, Intramuscular, q2wk, # 2 mL, 2 Refill(s), Pharmacy: [id number], Male hypogonadism, 175, cm, 03/08/24 8:07:00 EDT, Height, 137.2, kg, 03/08/24 8:07:00 EDT, Dosing Weight Start Date: 03/21/24 Stop Date: 06/19/24 Status: Ordered urea 400 mg/ml topical cream (3 sources) Start: 06-30-2018 urea (CARMOL) 40 % crea Apply 1 application to affected area as needed. 1 Tube 5 06/30/2018 Active Vitamin B Complex (14 sources) Start: 02-14-2015 Vitamin B Comp sarah Active 1 EACH SL TWICE A DAY February 14, 2015 4:06am Start: 02-14-2015 End: 05-15-2022 Vitamin B Complex Discontinu ed 1 EACH SL TWICE A DAY February 14, 2015 12:00am May 15, 2022 9:52am Start: 02-14-2015 End: 05-15-2022 Vitamin B Complex Discontinu ed 1 EACH SL TWICE A DAY February 13, 2015 11:00pm May 15, 2022 8:52am Start: 02-14-2015 Vitamin B Comp sarah Active 1 EACH SL TWICE A DAY February 14, 2015 12:00am Vitamin B Complex sublingual liquid (3 sources) Start: 05-16-2024 take 1 dose under the tongue once daily Vitamin B Complex sublingual liquid Dose = 1 mL, Sublingual, qDay, hold under the tongue for 30 seconds before swallowing, # 59 mL, 0 Refill(s) Start Date: 05/16/24 Status: Ordered Quantity: 59.0 Unit: mL Repeat number: 1 Start: 05-16-2024 take 1 dose under th e tongue once daily Vitamin B Complex sublingual liquid Dose = 1 mL, Sublingual, qDay, hold under the tongue for 30 seconds before swallowing, # 59 mL, 0 Refill(s) Start Date: 05/16/24 Status: Ordered Vitamin O90-Zzqyjpi B1 (7 sources) Start: 12-03-2022 take 1 mL by mouth twice daily Vitamin Z00-Smaubcw B1 Active 1 ML PO TWICE A DAY December 03, 2022 12:00am Start: 12-03-2022 take 1 mL by mouth twice daily Vitamin K27-Dkpfjjw B1 Active 1 ML PO TWICE A DAY December 02, 2022 11:00pm Start: 12-03-2022 take 1 mL by mouth t hree times daily Vitamin K96-Kaoyqms B1 Active 1 ML PO THREE TIMES A DAY December 02, 2022 11:00pm Start: 12-03-2022 take 1 mL by mouth t hree times daily Vitamin N25-Ckyzdya B1 Active 1 ML PO THREE TIMES A DAY December 03, 2022 12:00am Vitamin D53-Snvnkwd B1 5.5-12.5 mg-mcg/5 mL Liquid (5 sources) Start: 12-03-2022 take 5.5-12.5 mg by mouth twice daily Vitamin L03-Lapmbot B1 5.5-12.5 mg-mcg/5 mL Liquid Active 1 mL PO TWICE A DAY December 03, 2022 12:00am Vitamin C 1000 mg oral tablet (3 sources) Start: 05-30-2022 Vitamin C 1000 mg oral tablet Dose : 1,000 mg = 1 tab(s), Oral, qDay, # 30 tab(s), 0 Refill(s) Start Date: 05/30/22 Status: Ordered Quantity: 30.0 Unit: tab(s) Repeat number: 1 Start: 05-30-2022 Vitamin C 1000 mg oral tablet Dose : 1,000 mg = 1 tab(s), Oral, qDay, # 30 tab(s), 0 Refill(s) Start Date: 05/30/22 Status: Ordered Completed/Discontinued Medications Medication Drug Class(es) Dates Sig (Normalized) Sig (Original) 5-hydroxytryptopha n 100 mg oral capsule (20 sources) Start: 03-09-2017 End: 05-15-2022 take 5 capsules by mouth twice daily 5-Hydroxytryptophan (5-Htp) 100 MG capsule Discontinued 100 mg PO TWICE A DAY March 09, 2017 12:00am May 15, 2022 9:51am SUPPLEMENT 7lwc-Wwrfy-Aepp-Ph kzs-A9-Z-Chr (9 sources) Start: 06-26-2022 End: 09-10-2023 take 1 capsule by mouth at bedtime 4cco-Ibumd-Bkqe-Phe ny-B6-C-Chr Discontinued 1 CAP PO AT BEDTIME June 26, 2022 1:00am September 11, 2023 12:05am Start: 06-26-2022 End: 09-10-2023 take 1 capsule by mouth at bedtime 7hir-Wsuio-Hezm-Trmxz-U9-F-Chr Discontin ued 1 CAP PO AT BEDTIME June 26, 2022 12:00am September 10, 2023 11:05pm Start: 06-26-2022 take 1 capsule by mouth at bedtime 6ncm-Qyphf-Tblc-Cmcem-B3-Q-Chr Active 1 CAP PO AT BEDTIME June 26, 2022 1:00am Start: 06-26-2022 take 1 capsule by mouth at bedtime 8uak-Whoqd-Pfib-Abamr-J6-M-Chr Active 1 CAP PO AT BEDTIME June 26, 2022 12:00am 5wba-Lrinp-Qpnl-Zqgjs-R2-Z-C hr 18.8-187.5-93.8 mg Capsule (5 sources) Start: 06-26-2022 End: 09-10-2023 take 18.8-187.5 capsules by mouth at bedtime 1udg-Panzm-Vuai-Udxua-M6-M-Chr 18.8-187.5-93.8 mg Capsule Discontinued 1 NMA PO AT BEDTIME June 26, 2022 1:00am September 11, 2023 12:05am supplement Start: 06-26-2022 End: 09-10-2023 take 18.8-187.5 capsules by mouth at bedtime 5foy-Htugd-Iovm-Jrxxc-Q0-U-Chr 18.8-187.5-93.8 mg Capsule Discontinued 1 NMA PO AT BEDTIME June 26, 2022 1:00am September 11, 2023 12:05am acetaminophen 325 mg / oxyCODONE hydrochloride 5 mg oral tablet (8 sources) Opioid Agonist Start: 03-18-2024 End: 11-02-2024 Oxycodone-Acetaminophen (Endocet) 5-325 mg tablet Discontinued 1 {tbl} PO EVERY 6 HOURS 28 7 0 March 18, 2024 November 02, 2024 8:43am Other acute postprocedural pain Other acute postprocedural pain pain oxyCODONE-acetam inophen 7.5-325 mg TbBO Take by mouth. Active amLODIPine 10 mg oral tablet (20 sources) Dihydropyridine Calcium Channel Godfrey Start: 07-19-2009 End: 12-29-2020 take 1 tablet by mouth once daily Amlodipine 10 MG tablet Discontinued 10 mg PO DAILY July 12, 2019 1:00am December 29, 2020 1:38pm blood pressure apixaban 5 mg oral tablet (19 sources) Factor Xa Inhibitor Start: 01-25-2021 End: 05-15-2021 take 1 tablet by mouth twice daily Apixaban (Eliquis) 5 mg tablet Discontinued 5 mg PO TWICE A DAY January 25, 2021 12:00am May 15, 2021 9:42am ascorbic acid 1000 mg oral tablet (20 sources) Vitamin C Start: 03-18-2024 End: 03-25-2024 take 1 g by mouth once daily Ascorbic Acid (Vitamin C) (Vitamin C) 1,000 mg tablet Discontinued 1 g PO DAILY 90 90 0 March 18, 2024 12:00am March 25, 2024 10:48am Start: 05-12-2023 take 1 g by mouth once daily A scorbic Acid (Vitamin C) 1,000 mg capsule Active 1 g PO DAILY May 12, 2023 12:00am Start: 05-12-2023 take 1 g by mouth once daily A scorbic Acid (Vitamin C) Active 1 GM PO DAILY May 12, 2023 12:00am Start: 05-12-2023 take 1 g by mouth once daily A scorbic Acid (Vitamin C) Active 1 GM PO DAILY May 11, 2023 11:00pm Start: 03-17-2018 End: 11-17-2018 take 1 capsule by mouth once daily Ascorbic Acid (Vitamin C) 500 MG capsule Discontinued 500 mg PO DAILY March 17, 2018 12:00am November 17, 2018 9:36am aspirin 81 mg delayed release oral tablet (20 sources) Platelet Aggregation Inhibitor, Nonsteroidal Anti-inflammatory Drug Start: 06-13-2022 End: 12-03-2022 take 1 tablet by mouth twice daily Aspirin 81 mg Tablet,Delayed Release (Dr/Ec) Discontinued 81 mg PO TWICE A DAY 28 14 0 June 13, 2022 1:00am December 03, 2022 2:36pm Start: 05-28-2022 take 81 mg by mouth once daily Aspirin Active 81 MG PO DAILY May 28, 2022 12:00am Start: 06-05-2021 Adult aspirin 81 mg oral capsule Dose : 81 mg = 1 cap(s), Oral, qDay, do not exceed 48 capsules in 24 hours, # 30 cap(s), 0 Refill(s) Start Date: 06/05/21 Status: Ordered Quantity: 30.0 Unit: cap(s) Repeat number: 1 Start: 05-16-2021 End: 05-15-2022 take 1 tablet by mouth twice daily for pain Aspirin 325 mg tablet,delayed release (DR/EC) Discontinued 325 mg PO TWICE A DAY May 16, 2021 12:00am May 15, 2022 9:51am for arthritis pain (plus cardiac hx) Start: 07-12-2019 End: 05-16-2021 take 1 tablet by mouth once daily Aspirin 81 MG tablet,chewable Discontinued 81 mg PO DAILY@0800 July 12, 2019 1:00am May 16, 2021 1:43pm [facility] Start: 02-14-2015 End: 03-10-2017 take 1 tablet by mouth once daily Aspirin 81 MG Tab.Chew Discontinued 81 mg PO DAILY@0800 February 14, 2015 12:00am March 10, 2017 5:08pm [facility] Start: 07-19-2009 End: 03-25-2024 take 1 tablet by mouth once daily Aspirin 81 mg tablet,delayed release (DR/EC) Discontinued 81 mg PO DAILY 30 30 0 March 18, 2024 12:00am March 25, 2024 10:48am azithromycin 250 mg oral tablet (5 sources) Macrolide Antimicrobial Start: 07-25-2024 End: 11-02-2024 Azithromycin 250 mg tablet Discontinued 250 mg PO .COMPLEX 12 0 July 25, 2024 1:00am November 02, 2024 8:43am 2 tablets (500 mg) on day 1, then 1 tablet daily on days 2 through 11 betamethasone 0.5 mg/ml / clotrimazole 10 mg/ml topical cream (18 sources) Azole Antifungal, Corticosteroid Start: 12-26-2021 End: 05-15-2022 Clotrimazole-Betamet hasone 1-0.05 % cream Discontinued 1 NMA TOPICAL TWICE A DAY 45 14 1 December 26, 2021 12:00am May 15, 2022 9:51am Start: 12-26-2021 End: 05-15-2022 Clotrimazole-Betamethasone D iscontinued 1 APPLIC TOPICAL TWICE A DAY 45 14 December 26, 2021 12:00am May 15, 2022 9:51am Calcium (14 sources) Phosphate Binder, Calcium Start: 06-26-2022 End: 11-02-2024 take 2 capsules by mouth once daily Calcium 600 mg Capsule Discontinued 1200 mg PO DAILY June 26, 2022 1:00am November 02, 2024 8:43am supplement Start: 06-26-2022 End: 11-02-2024 take 2 capsules by mouth once daily Calcium 600 mg Capsule Discontinued 1200 mg PO DAILY June 26, 2022 1:00am November 02, 2024 8:43am Start: 06-26-2022 take 1200 mg by mouth once rene ly Calcium Active 1200 MG PO DAILY June 26, 2022 1:00am Start: 06-26-2022 take 1200 mg by mouth once rene ly Calcium Active 1200 MG PO DAILY June 26, 2022 12:00am calcium citrate 1500 mg / cholecalciferol 250 unt oral tablet (19 sources) Vitamin D Start: 03-09-2017 End: 11-17-2018 Calcium Citrate-Vitamin D3 1 EACH tablet Discontinued 1 NMA PO TWICE A DAY March 09, 2017 12:00am November 17, 2018 9:36am supplement Start: 03-09-2017 End: 11-17-2018 Calcium Citrate-Vitamin D3 D iscontinued 1 EACH PO TWICE A DAY March 09, 2017 12:00am November 17, 2018 9:36am ceFAZolin (ANCEF) 3,000 mg in dextrose 5 % 100 mL IVPB (1 source) Start: 11-26-2020 End: 11-26-2020 ceFAZolin (ANCEF) 3,000 mg in dextrose 5 % 100 mL IVPB cephalexin 500 mg oral capsule (18 sources) Cephalosporin Antibacterial Start: 03-01-2022 End: 05-15-2022 take 1 capsule by mouth every six hours Cephalexin 500 mg capsule Discontinued 500 mg PO EVERY 6 HOURS 40 0 March 01, 2022 12:00am May 15, 2022 9:50am clopidogrel 75 mg oral tablet (20 sources) [id number] Platelet Inhibitor Start: 11-27-2020 End: 01-25-2021 take 1 tablet by mouth once daily Clopidogrel 75 mg tablet Discontinued 75 mg PO DAILY January 07, 2021 4:22pm January 25, 2021 9:09am continue for 3 months post TAVR 11/26/20 Start: 11-26-2020 take 300 mg by mouth once 300 mg, Oral, ONCE, On Thu11/26/20 at 0930, For 1 dose, Post-op cyclobenzaprine hydrochloride 10 mg oral tablet (13 sources) Muscle Relaxant Start: 03-18-2024 End: 11-02-2024 take 1 tablet by mouth three times daily Cyclobenzaprine 10 mg tablet Discontinued 10 mg PO THREE TIMES A DAY 21 7 0 March 18, 2024 12:00am November 02, 2024 8:43am muscle spasm Start: 09-24-2023 End: 03-15-2024 take 1 tablet by mouth at bedtime as needed for muscle spasms Cyclobenzaprine 10 mg tablet Discontinued 10 mg PO AT BEDTIME NEEDED as needed for Muscle Spasm 10 September 24, 2023 1:01pm March 15, 2024 10:23am dexamethasone 6 mg oral tablet (20 sources) Corticosteroid Start: 01-11-2022 End: 05-15-2022 take 1 tablet by mouth once daily Dexamethasone (Decadron) 6 mg tablet Discontinued 6 mg PO DAILY 5 January 11, 2022 12:00am May 15, 2022 9:51am Start: 08-03-2021 End: 11-04-2021 take 1 tablet by mouth once daily Dexamethasone (Decadron) 6 mg tablet Discontinued 6 mg PO DAILY 5 August 03, 2021 1:00am November 04, 2021 8:39am docusate sodium 100 mg oral capsule (5 sources) Start: 03-18-2024 End: 11-02-2024 take 1 capsule by mouth once daily Docusate Sodium (Colace) 100 mg capsule Discontinued 100 mg PO DAILY 10 10 March 18, 2024 12:00am November 02, 2024 8:43am doxycycline hyclate 100 mg oral capsule (10 sources) Tetracycline-clas s Drug Start: 02-01-2024 End: 07-25-2024 take 1 capsule by mouth twice daily Doxycycline Hyclate 100 mg capsule Discontinued 100 mg PO TWICE A DAY 28 14 March 09, 2024 12:00am March 15, 2024 10:24am fluconazole 150 mg oral tablet (20 sources) Azole Antifungal Start: 01-09-2023 End: 05-12-2023 take 1 tablet by mouth once daily Fluconazole 150 mg tablet Discontinued 150 mg PO DAILY 1 January 09, 2023 12:00am May 12, 2023 10:47am Start: 12-26-2021 End: 05-15-2022 Fluconazole (Diflucan) 150 m g tablet Discontinued 150 mg PO Every 3 Days 2 December 26, 2021 12:00am May 15, 2022 9:51am may repeat second dose 72 hrs after first dose if symptoms persist ibuprofen 200 mg oral tablet (20 sources) Nonsteroidal Anti-inflammatory Drug Start: 01-03-2018 End: 05-16-2021 take 1 tablet by mouth every six hours as needed for pain Ibuprofen 200 MG tablet Discontinued 200 mg PO EVERY 6 HOURS NEEDED as needed for Pain January 03, 2018 12:00am May 16, 2021 1:43pm Ibuprofen 200 mg cap Take by mouth. Active meloxicam 7.5 mg oral tablet (16 sources) Nonsteroidal Anti-inflammatory Drug Start: 06-13-2022 End: 06-27-2022 take 1 tablet by mouth twice daily Meloxicam 7.5 mg Tablet Discontinued 7.5 mg PO TWICE A DAY 60 30 June 13, 2022 1:00am June 27, 2022 4:31pm methylPREDNISolone 4 mg oral tablet (13 sources) Corticosteroid Start: 01-29-2023 End: 02-04-2023 take 1 tablet by mouth once Methylprednisolone (Medrol (Mukesh)) 4 mg tablets,dose pack Discontinued 4 mg PO per package directions 21 6 0 January 29, 2023 12:00am February 03, 2023 12:00am February 04, 2023 12:04am Start: 06-30-2018 methylPREDNISo lone (MEDROL, MUKESH,) 4 mg Dose-Pack Take as directed 1 Package 06/30/2018 Active oxyCODONE hydrochloride 5 mg oral tablet (8 sources) Opioid Agonist Start: 07-07-2024 End: 07-21-2024 take 1 tablet by mouth every six hours as needed for pain Oxycodone 5 mg tablet Discontinued 5 mg PO EVERY 6 HOURS as needed for pain 20 14 0 July 07, 2024 July 20, 2024 1:00am July 21, 2024 1:11am Back pain Dorsalgia, unspecified Start: 06-13-2022 take 10 mg by mouth every four hours as needed Oxycodone Active 10 MG PO EVERY 4 HOURS NEEDED 42 7 June 13, 2022 predniSONE 10 mg oral tablet (20 sources) Start: 03-09-2023 End: 05-12-2023 take 4 tablets by mouth once daily, then take 3 tablets by mouth once daily, then take 2 tablets by mouth once daily, then take 1 tablet by mouth once daily Prednisone 10 mg tablet Discontinued 10 mg PO As Directed March 09, 2023 12:00am May 12, 2023 10:48am 4 tablets daily x 3 days, then 3 tablets daily x 3 days, then 2 tablets daily x 3 days, then 1 tablet daily x 3 days Start: 12-26-2021 End: 01-07-2022 Prednisone 10 mg tablet Disc ontinued 10 mg PO daily 30 12 0 December 26, 2021 12:00am January 06, 2022 12:00am January 07, 2022 12:03am Unspecified contact dermatitis, unspecified cause Take 4 tabs once daily days 1-3 3 tabs once daily days 4-6 2 tabs once daily days 7-9 and 1 tab once daily days 10-12. sulfamethoxazole 800 mg / trimethoprim 160 mg oral tablet (5 sources) Dihydrofolate Reductase Inhibitor Antibacterial, Sulfonamide Antimicrobial Start: 01-22-2024 End: 01-29-2024 Sulfamethoxazole-Trimethopri m (Bactrim Ds) 800-160 mg tablet Discontinued 1 {tbl} PO Q12H 14 7 0 January 22, 2024 12:00am January 28, 2024 12:00am January 29, 2024 12:05am triamcinolone acetonide 40 mg/ml injectable suspension (1 source) Corticosteroid Start: 10-01-2017 End: 10-01-2017 Kenalog (triamcinolone acetonide) 10 mg/mL suspension for injection Discontinued 2 MG INTRAARTIC ONCE 0.2 October 01, 2017 12:30pm October 01, 2017 1:02pm Vitamin B Complex 1 EACH capsule (5 sources) Start: 02-14-2015 End: 05-15-2022 Vitamin B Complex 1 EACH cap mario Discontinued 1 NMA SL TWICE A DAY February 14, 2015 12:00am May 15, 2022 9:52am supplement Start: 02-14-2015 End: 05-15-2022 Vitamin B Complex 1 EACH cap mario Discontinued 1 NMA SL TWICE A DAY February 14, 2015 12:00am May 15, 2022 9:52am Problems Active Problems Problem Classification Problem Date Documented Da te Episodic/Chronic Abdominal hernia (20 sources) Hiatal hernia; Translations: [Diaphragmatic hernia without obstruction or gangrene] Onset: 12-14-2024 05-01-2021 Episodic Abdominal pain (8 sources) Abdominal pain; Translations: [Left flank pain] 04-24-2021 Episodic Acquired foot deformities (11 sources) Acquired hallux malleus; Translations: [Other hammer toe(s) (acquired), left foot] Onset: 05-06-2024 03-18-2024 Chronic Acute and unspecified renal failure (16 sources) Injury of kidney; Translations: [Acute kidney failure, unspecified] 01-09-2023 Episodic Attention-deficit, conduct, and disruptive behavior disorders (5 sources) Attention deficit hyperactivity disorder; Translations: [Attention-deficit hyperactivity disorder, unspecified type] 06-04-2024 Chronic Cancer of prostate (4 sources) Malignant tumor of prostate; Translations: [Malignant neoplasm of prostate] Onset: 07-19-2009 07-19-2009 Chronic Cardiac dysrhythmias (20 sources) Bradycardia; Translations: [Bradycardia, unspecified] 10-22-2020 Episodic Chronic obstructive pulmonary disease and bronchiectasis (1 source) Chronic obstructive pulmonary disease, unspecified; Translations: [Chronic obstructive pulmonary disease, unspecified] Onset: 12-05-2024 Chronic Chronic ulcer of skin (7 sources) Non-pressure chronic ulcer of other part of left foot with fat layer exposed; Translations: [Non-pressure chronic ulcer of other part of left foot with fat layer exposed] Onset: 06-23-2024 01-27-2024 Chronic Complication of device; implant or graft (5 sources) Prosthetic joint mechanical failure; Translations: [Broken internal left hip prosthesis, initial encounter] 02-20-2024 Episodic Complications of surgical procedures or medical care (18 sources) Postoperative wound infection; Translations: [Infection following a procedure, other surgical site, initial encounter] 03-09-2022 Episodic Conditions associated with dizziness or vertigo (19 sources) Dizziness and giddiness; Translations: [Dizziness and giddiness] 10-22-2020 Episodic Coronary atherosclerosis and other heart disease (20 sources) Non-obstructive atherosclerosis of coronary artery; Translations: [Atherosclerotic heart disease of council coronary artery without angina pectoris] Chronic Disorders of lipid metabolism (20 sources) Dyslipidemia; Translations: [Hyperlipidemia, unspecified] Onset: 03-08-2024 08-20-2020 Chronic E Codes: Fall (8 sources) Fall; Translations: [Unspecified fall, initial encounter] 09-24-2023 Episodic Essential hypertension (20 sources) Essential hypertension; Translations: [Essential (primary) hypertension] Onset: 11-21-2020 11-21-2020 Chronic Fluid and electrolyte disorders (16 sources) Dehydration; Translations: [Dehydration] 01-09-2023 Episodic Fracture of upper limb (17 sources) Closed fracture of upper end of humerus; Translations: [Unspecified fracture of upper end of left humerus, initial encounter for closed fracture] 04-17-2022 Episodic Heart valve disorders (20 sources) Nonrheumatic aortic (valve) stenosis; Translations: [Aortic valve disorders] Onset: 11-21-2020 Chronic Comment on above: TRANSFEMORAL TRANSCA THETER AORTIC VALVE REPLACEMENT w/ A 23 CHEYANNE S3 VALVE IMPLANTATION. 11/26/20 Immunizations and screening for infectious disease (4 sources) Contact with or exposure to other viral diseases; Translations: [Exposure to COVID-19 virus] Episodic Infective arthritis and osteomyelitis (except that caused by tuberculosis or sexually transmitted disease) (15 sources) Osteomyelitis, unspecified; Translations: [Osteomyelitis of forefoot] Onset: 03-08-2024 Chronic Inflammation; infection of eye (except that caused by tuberculosis or sexually transmitteddisease) (19 sources) Conjunctivitis; Translations: [Unspecified conjunctivitis] 08-20-2020 Episodic Mycoses (17 sources) Tinea corporis; Translations: [Tinea corporis] Onset: 01-29-2016 01-09-2023 Episodic Nonspecific chest pain (17 sources) Chest pain; Translations: [Chest pain, unspecified] Episodic Nutritional deficiencies (3 sources) Vitamin D deficiency 01-17-2022 Chronic Osteoarthritis (20 sources) Osteoarthritis of left hip joint; Translations: [Unilateral primary osteoarthritis, left hip] Chronic Other acquired deformities (5 sources) Contracture of joint of foot; Translations: [Contracture, left foot] 01-27-2024 Chronic Other and unspecified benign neoplasm (12 sources) History of polyp of colon; Translations: [Personal history of colonic polyps] 12-09-2022 Episodic Other and unspecified benign neoplasm (2 sources) Personal history of colonic polyps; Translations: [Personal history of colonic polyps] 12-09-2022 Episodic Other circulatory disease (10 sources) Peripheral vascular disease; Translations: [Other specified peripheral vascular diseases] 01-27-2024 Chronic Other connective tissue disease (5 sources) Thigh pain; Translations: [Pain in left thigh] 02-28-2024 Episodic Other diseases of bladder and urethra (3 sources) Bladder neck obstruction; Translations: [Bladder-neck obstruction] Onset: 07-19-2009 07-19-2009 Chronic Other endocrine disorders (4 sources) Testicular hypofunction; Translations: [Testicular hypofunction] Onset: 07-27-2023 Chronic Other endocrine disorders (3 sources) Male hypogonadism 10-26-2023 Chronic Other gastrointestinal disorders (19 sources) Diarrhea; Translations: [Diarrhea, unspecified] 07-13-2019 Episodic Other hematologic conditions (1 source) Protein level - finding; Translations: [Other specified abnormalities of plasma proteins] Episodic Other hematologic conditions (20 sources) Raised cardiac enzyme or marker; Translations: [Other specified abnormalities of plasma proteins] 12-29-2020 Episodic Other hematologic conditions (1 source) Other specified abnormalities of plasma proteins; Translations: [Other abnormal blood chemistry] Episodic Other inflammatory condition of skin (3 sources) Intertrigo 03-09-2023 Episodic Other lower respiratory disease (19 sources) Hypoxemia; Translations: [Hypoxemia] 12-29-2020 Episodic Other male genital disorders (3 sources) Impotence 06-05-2021 Chronic Other nervous system disorders (3 sources) Peripheral nerve disease 10-26-2023 Chronic Other nervous system disorders (3 sources) Unable to concentrate 02-09-2024 Chronic Other nervous system disorders (5 sources) Acute postoperative pain; Translations: [Other acute postprocedural pain] 03-18-2024 Episodic Other nervous system disorders (1 source) Postoperative pain ; Translations: [Other acute postprocedural pain] Onset: 12-19-2024 Episodic Other nervous system disorders (1 source) Other acute postprocedural pain; Translations: [Other acute postprocedural pain] Onset: 12-19-2024 Episodic Other non-traumatic joint disorders (14 sources) Shoulder pain; Translations: [Pain in left shoulder] 08-20-2020 Episodic Other non-traumatic joint disorders (20 sources) Pain in left shoulder; Translations: [Pain in joint, shoulder region] Episodic Other non-traumatic joint disorders (8 sources) Hip pain; Translations: [Pain in left hip] 02-19-2022 Episodic Other non-traumatic joint disorders (3 sources) Pain in wrist 03-09-2023 Episodic Other nutritional; endocrine; and metabolic disorders (3 sources) Severe obesity; Translations: [Morbid (severe) obesity due to excess calories] Onset: 11-21-2020 11-21-2020 Chronic Other nutritional; endocrine; and metabolic disorders (20 sources) Body mass index 40+ - severely obese; Translations: [Morbid (severe) obesity due to excess calories] 08-20-2020 Chronic Other nutritional; endocrine; and metabolic disorders (20 sources) Obesity; Translations: [Obesity, unspecified] 11-04-2021 Chronic Other nutritional; endocrine; and metabolic disorders (5 sources) Obesity, unspecified; Translations: [Obesity, unspecified] Chronic Other screening for suspected conditions (not mental disorders or infectious disease) (17 sources) Patient encounter status; Translations: [Encounter for screening for malignant neoplasm of colon] Onset: 08-12-2024 12-04-2022 Episodic Other skin disorders (2 sources) Rash and other nonspecific skin eruption; Translations: [Rash and other nonspecific skin eruption] Episodic Other upper respiratory disease (18 sources) Congestion of nasal sinus; Translations: [Nasal congestion] 05-27-2022 Episodic Peripheral and visceral atherosclerosis (1 source) Peripheral vascular disease, unspecified; Translations: [Peripheral vascular disease, unspecified] Onset: 11-17-2024 Chronic Residual codes; unclassified (20 sources) Obstructive sleep apnea syndrome; Translations: [Obstructive sleep apnea (adult) (pediatric)] Onset: 11-21-2020 11-21-2020 Chronic Residual codes; unclassified (3 sources) Impaired exercise tolerance 08-23-2020 Episodic Residual codes; unclassified (3 sources) Needs influenza immunization 04-13-2019 Episodic Residual codes; unclassified (10 sources) Cool skin; Translations: [Pallor] 11-02-2024 Episodic Spondylosis; intervertebral disc disorders; other back problems (19 sources) Degeneration of lumbar intervertebral disc; Translations: [Other intervertebral disc degeneration, lumbar region] Chronic Spondylosis; intervertebral disc disorders; other back problems (7 sources) Radiculopathy, lumbar region; Translations: [Lumbar radiculopathy] Onset: 04-08-2024 04-08-2024 Episodic Comment on above: HX OF BACK SURGERY Sprains and strains (20 sources) Injury of groin; Translations: [Strain of adductor muscle, fascia and tendon of left thigh, initial encounter] 10-14-2021 Episodic Superficial injury; contusion (20 sources) Contusion of knee; Translations: [Contusion of left knee, initial encounter] 08-20-2020 Episodic Thyroid disorders (7 sources) Hypothyroidism, unspecified; Translations: [Hypothyroidism] Onset: 07-27-2023 Chronic Unclassified (3 sources) Injury of back of trunk 09-28-2023 Unclassified (6 sources) Patient encounter status 12-03-2022 Urinary tract infections (19 sources) Acute pyelonephritis; Translations: [Acute pyelonephritis] 01-04-2018 Episodic Viral infection (20 sources) COVID-19; Translations: [Severe acute respiratory syndrome coronavirus 2 (SARS-CoV-2) detected] Onset: 08-03-2021 Episodic Past or Other Problems Problem Classification Problem Date Documented Da te Episodic/Chronic Calculus of urinary tract (3 sources) Kidney stone; Translations: [Calculus of kidney] Onset: 07-19-2009 07-19-2009 Episodic Headache; including migraine (2 sources) Headache disorder; Translations: [Other headache syndrome] Onset: 12-05-2020 12-05-2020 Episodic Other bone disease and musculoskeletal deformities (3 sources) Exostosis; Translations: [Other specified disorders of bone, unspecified site] Onset: 03-24-2014 03-24-2014 Episodic Other connective tissue disease (3 sources) Pain in limb; Translations: [Pain in unspecified limb] Onset: 03-24-2014 03-24-2014 Episodic Other liver diseases (1 source) Hepatomegaly, not elsewhere classified; Translations: [Hepatomegaly, not elsewhere classified] Onset: 07-19-2024 Episodic Results Test Name Value Interpretation Reference Range Facility L509.3001on 02-17-2025 Testosterone [Mass/Vol] 986.00 ng/dL High 300-720 [facility] Comment on above: Order Comment: ADD O N TESTOSTERONE TOTAL-SWRIGHT Performed By: #### L 501.9940, L509.3001 ####[facility] [id number] [place], [address] Laboratory - Chemistry and C hemistry - challengeOrdered By: Kena Ramirez on 02-16-2025 Testosterone [Mass/Vol] 986.00 ng/dL High 300-720 [facility] PSA,Total- Diagnosticon PSA, DIAGNOSTIC 0.25 ng/mL Normal 0.00-4.00 [facility] Comment on above: Result Comment: This test was performed using the [employer] tPSA method. Measured values of a patient??sample can vary depending on the testing procedure used. PSA values determined on patient samples by different testing procedures cannot be used interchangeably. If there is a change in PSA assays while monitoring therapy, sequential testing should be performed to confirm baseline values. Performed By: #### L 501.9940, L509.3001 #### [facility] [address] [place], [address] TFTESTon 02-14-2025 Free Testost Direct 29.3 pg/mL High 6.6-18.1 [facility] Comment on above: Result Comment: Perf ormed At: [facility] [address] [id number] Tien Fabian MD Ph:[phone] Performed At: [facility] [address] [id number] Nicolas Yanez PhD Ph:[phone] Performed By: #### C BC, ANEU, CMP, GFR, ADIFF #### [facility] [address] [place] [address] Testosterone Lvl 1268 ng/dL High 264-916 [facility] Comment on above: Result Comment: Adul t male reference interval is based on a population of healthy nonobese males (BMI <30) between 19 and 39 years old. Jonathan et.al. JCEM 2017,102;8349-2822. PMID: [id number]. Performed By: #### C BC, ANEU, CMP, GFR, ADIFF #### [facility] [address] [place] [address] RFon 02-12-2025 Rheumatoid Factor 61.0 High <=5.9 [facility] Comment on above: Result Comment: RF I gM Antibody by Enzyme Immunoassay: Negative < or = 6 Positive > 6 A positive result indicates the presence of RF antibodies and suggests the possibility of rheumatoid arthritis. A negative result indicates no RF IgM antibody or levels below the negative cut-off of the assay. Results of this assay should be used in conjunction with clinical findings and other serological tests. These results were obtained with the [employer] QUANTA Lite RF IgM JA. RF IgM values obtained with different manufacturers' assay methods may not be used interchangeably. The magnitude of the reported IgM levels cannot be correlated to an endpoint titer. Performed By: #### C BC, ANEU, CMP, GFR, ADIFF #### [address] [address] .Auto Diffon 02-09-2025 Basophil, Absolute 0.1 10 3/mcL Normal 0.0-0.3 [facility] Comment on above: Performed By: #### F T4, GFR, 232243, RF, LIPID, ANEU, ADIFF, CBC, CMP, TSH #### [address] [address] Basophils/100 WBC (Bld) 1.0 % Normal 0.0-2.5 [facility] Comment on above: Performed By: #### F T4, GFR, 280433, RF, LIPID, ANEU, ADIFF, CBC, CMP, TSH #### [address] [address] Eosinophil, Absolute 0.2 10 3/mcL Normal 0.0-0.7 [facility] Comment on above: Performed By: #### F T4, GFR, 671539, RF, LIPID, ANEU, ADIFF, CBC, CMP, TSH #### [address] [address] Eosinophils/100 WBC (Bld) 2.2 % Normal 0.0-6.0 [facility] Comment on above: Performed By: #### F T4, GFR, 671099, RF, LIPID, ANEU, ADIFF, CBC, CMP, TSH #### [address] [address] Lymphocyte, Absolute 1.6 10 3/mcL Normal 0.9-4.3 [facility] Comment on above: Performed By: #### F T4, GFR, 845139, RF, LIPID, ANEU, ADIFF, CBC, CMP, TSH #### [address] [address] Lymphocytes/100 WBC (Bld) 20.2 % Normal 20.0-40.0 [facility] Comment on above: Performed By: #### F T4, GFR, 024899, RF, LIPID, ANEU, ADIFF, CBC, CMP, TSH #### [address] [address] Monocyte, Absolute 0.4 10 3/mcL Normal 0.1-1.4 [facility] Comment on above: Performed By: #### F T4, GFR, 327436, RF, LIPID, ANEU, ADIFF, CBC, CMP, TSH #### [address] [address] Monocytes/100 WBC (Bld) 5.7 % Normal 2.0-13.0 [facility] Comment on above: Performed By: #### F T4, GFR, 751827, RF, LIPID, ANEU, ADIFF, CBC, CMP, TSH #### [address] [address] Neutrophils/100 WBC (Bld) 70.9 % Normal 50.0-75.0 [facility] Comment on above: Performed By: #### F T4, GFR, 346886, RF, LIPID, ANEU, ADIFF, CBC, CMP, TSH #### [address] [address] .GFRon 02-09-2025 Estimated Glomerular Filtration Rate 77 ml/min/1.73sqm Normal [facility] Comment on above: Result Comment: Stages of Chronic Kidney Disease (CKD) Stage Description eGFR(ml/min/1.73 sq.m.) CKD 1 Normal kidney function or >=90 normal kindney function with possible kidney damage (ex. Proteinuria) CKD 2 Kidney damage with mild loss 60-89 of kidney function CKD 3a Mild to moderate loss of kidney 45-59 function CKD 3b Moderate to severe loss of 30-44 of kindey function CKD 4 Severe loss of kidney function 15-29 CKD 5 Kidney failure <15 Note: (go live 2024) the eGFR calculation was updated to the 2020 CKD-EPI creatinine equation without a race factor to calculate the eGFR results. Performed By: #### C BC, ANEU, CMP, GFR, ADIFF #### [address] [address] .NEUABSon 07-31-2025 Neutrophil, Absolute 5.4 10 3/mcL Normal 2.3-8.1 [facility] Comment on above: Performed By: #### F T4, GFR, 827082, RF, LIPID, ANEU, ADIFF, CBC, CMP, TSH #### [place] [address] CBCon 02-09-2025 Erythrocyte distribution width (RBC) [Ratio] 14.1 % Normal 11.5-15.5 [facility] Comment on above: Performed By: #### F T4, GFR, 382073, RF, LIPID, ANEU, ADIFF, CBC, CMP, TSH #### [place] [address] Hematocrit (Bld) [Volume fraction] 53.3 % High 40.0-52.0 [facility] Comment on above: Performed By: #### F T4, GFR, 785744, RF, LIPID, ANEU, ADIFF, CBC, CMP, TSH #### [place] [address] Hgb 17.8 G/dL High 13.0-17.5 [facility] Comment on above: Performed By: #### F T4, GFR, 071962, RF, LIPID, ANEU, ADIFF, CBC, CMP, TSH #### [place] [address] MCH (RBC) [Entitic mass] 31.6 pg Normal 27.0-33.0 [facility] Comment on above: Performed By: #### F T4, GFR, 719655, RF, LIPID, ANEU, ADIFF, CBC, CMP, TSH #### [place] [address] MCHC 33.3 G/dL Normal 32.0-36.0 [facility] Comment on above: Performed By: #### F T4, GFR, 087038, RF, LIPID, ANEU, ADIFF, CBC, CMP, TSH #### [place] [address] MCV (RBC) [Entitic vol] 94.8 fL Normal 81.0-100.0 [facility] Comment on above: Performed By: #### F T4, GFR, 284861, RF, LIPID, ANEU, ADIFF, CBC, CMP, TSH #### [address] [address] Platelet 277 10 3/mcL Normal 150-450 [facility] Comment on above: Performed By: #### F T4, GFR, 862652, RF, LIPID, ANEU, ADIFF, CBC, CMP, TSH #### [place] [id number] Platelet mean volume (Bld) [Entitic vol] 9.3 fL Normal 6.4-10.5 [facility] Comment on above: Performed By: #### F T4, GFR, 716839, RF, LIPID, ANEU, ADIFF, CBC, CMP, TSH #### [place] [address] RBC 5.62 10 6/mcL Normal 4.50-6.00 [facility] Comment on above: Performed By: #### F T4, GFR, 135839, RF, LIPID, ANEU, ADIFF, CBC, CMP, TSH #### [address] [address] WBC 7.7 10 3/mcL Normal 4.5-10.8 [facility] Comment on above: Performed By: #### F T4, GFR, 869938, RF, LIPID, ANEU, ADIFF, CBC, CMP, TSH #### [address] [address] CMPon 02-09-2025 Albumin Level 4.3 G/dL Normal 3.2-4.8 [facility] Comment on above: Performed By: #### F T4, GFR, 128945, RF, LIPID, ANEU, ADIFF, CBC, CMP, TSH #### [place] [id number] Albumin/Globulin [Mass ratio] 1.3 {ratio} Normal 0.9-1.6 [facility] Comment on above: Performed By: #### F T4, GFR, 882010, RF, LIPID, ANEU, ADIFF, CBC, CMP, TSH #### [address] [address] ALP [Catalytic activity/Vol] 93 U/L Normal 38-126 [facility] Comment on above: Performed By: #### F T4, GFR, 052135, RF, LIPID, ANEU, ADIFF, CBC, CMP, TSH #### [address] [address] ALT [Catalytic activity/Vol] 18 U/L Normal 12-55 [facility] Comment on above: Performed By: #### F T4, GFR, 607326, RF, LIPID, ANEU, ADIFF, CBC, CMP, TSH #### [place] [id number] AST [Catalytic activity/Vol] 30 U/L Normal 8-34 [facility] Comment on above: Performed By: #### F T4, GFR, 471263, RF, LIPID, ANEU, ADIFF, CBC, CMP, TSH #### [place] [id number] Bili Total 0.80 mg/dL Normal 0.20-1.20 [facility] Comment on above: Result Comment: Use of this assay is not recommended for patients undergoing treatment with eltrombopag due to the potential for falsely elevated results. Performed By: #### F T4, GFR, 771539, RF, LIPID, ANEU, ADIFF, CBC, CMP, TSH #### [place] [id number] BUN/Creatinine Ratio 12.5 ratio Normal 10.0-22.0 [facility] Comment on above: Performed By: #### F T4, GFR, 478517, RF, LIPID, ANEU, ADIFF, CBC, CMP, TSH #### [place] [id number] Calcium [Mass/Vol] 9.9 mg/dL Normal 8.7-10.4 [facility] Comment on above: Performed By: #### F T4, GFR, 147929, RF, LIPID, ANEU, ADIFF, CBC, CMP, TSH #### [place] [id number] Chloride [Moles/Vol] 101 mmol/L Normal 98-110 [facility] Comment on above: Performed By: #### F T4, GFR, 936048, RF, LIPID, ANEU, ADIFF, CBC, CMP, TSH #### [address] [address] CO2 [Moles/Vol] 32 mmol/L Normal 22-32 [facility] Comment on above: Performed By: #### F T4, GFR, 332254, RF, LIPID, ANEU, ADIFF, CBC, CMP, TSH #### [address] [address] Creatinine [Mass/Vol] 1.04 mg/dL Normal 0.60-1.40 [facility] Comment on above: Result Comment: Test ing performed on [employer] analyzer using enzymatic creatinine methodology. Performed By: #### F T4, GFR, 432245, RF, LIPID, ANEU, ADIFF, CBC, CMP, TSH #### [address] [address] Electrolyte Balance 10.0 mEq/L Normal 4.0-15.0 [facility] Comment on above: Performed By: #### F T4, GFR, 495196, RF, LIPID, ANEU, ADIFF, CBC, CMP, TSH #### [address] [address] Globulin 3.4 G/dL Normal 2.5-4.2 [facility] Comment on above: Performed By: #### F T4, GFR, 637778, RF, LIPID, ANEU, ADIFF, CBC, CMP, TSH #### [address] [address] Glucose [Mass/Vol] 96 mg/dL Normal 82-115 [facility] Comment on above: Performed By: #### F T4, GFR, 713072, RF, LIPID, ANEU, ADIFF, CBC, CMP, TSH #### [address] [address] Potassium [Moles/Vol] 4.4 mmol/L Normal 3.5-5.0 [facility] Comment on above: Performed By: #### F T4, GFR, 480925, RF, LIPID, ANEU, ADIFF, CBC, CMP, TSH #### [address] [address] Sodium [Moles/Vol] 143 mmol/L Normal 136-145 [facility] Comment on above: Performed By: #### F T4, GFR, 195308, RF, LIPID, ANEU, ADIFF, CBC, CMP, TSH #### [address] [address] Total Protein 7.7 G/dL Normal 5.7-8.2 [facility] Comment on above: Performed By: #### F T4, GFR, 687176, RF, LIPID, ANEU, ADIFF, CBC, CMP, TSH #### [address] [address] Urea nitrogen [Mass/Vol] 13.0 mg/dL Normal 8.0-22.0 [facility] Comment on above: Performed By: #### F T4, GFR, 597840, RF, LIPID, ANEU, ADIFF, CBC, CMP, TSH #### [address] [address] FT4on 02-09-2025 Free T4 [Mass/Vol] 1.19 ng/dL Normal 0.89-1.76 [facility] Comment on above: Result Comment: No te - New Reference Range in effect 20 Performed By: #### C BC, ANEU, CMP, GFR, ADIFF #### [address] [address] LIPIDon 02-09-2025 Cholesterol [Mass/Vol] 223 mg/dL High 50-199 [facility] Comment on above: Result Comment: Chol esterol Reference Interval: Less than 200 Desirable 200-239 Borderline high risk 240 and above High risk Performed By: #### C BC, ANEU, CMP, GFR, ADIFF #### [address] [address] Cholesterol in HDL [Mass/Vol] 30 mg/dL Low 40-59 [facility] Comment on above: Performed By: #### C BC, ANEU, CMP, GFR, ADIFF #### [address] [address] Cholesterol in LDL [Mass/Vol] 177 mg/dL High 0-129 [facility] Comment on above: Performed By: #### C BC, ANEU, CMP, GFR, ADIFF #### [facility] [address] [place] [address] Triglyceride [Mass/Vol] 79 mg/dL Normal 3-149 [facility] Comment on above: Performed By: #### C BC, ANEU, CMP, GFR, ADIFF #### [facility] [address] [place] [address] TSHon 02-09-2025 TSH 3.025 mIU/mL Normal 0.550-4.780 [facility] Comment on above: Performed By: #### F T4, GFR, 060456, RF, LIPID, ANEU, ADIFF, CBC, CMP, TSH #### [facility] [address] [place] [address] Echo Complete W/ Contraston 01-03-2025 Echo Complete W/ Contrast [facility] [address] [place] [address]. [place] [address] Echo Complete W/ Contrast 01/03/25 1306 MR#: [id number] Acct: [id number] Name: CHRISTOPHER SILVA Rep #: [id number] : 1955 69 From: Fred Bond MD Attending Dr: TRUDY Tillman Status: FRANDY HERNANDEZ Ordering Dr: Brittani Graham NP [place]-[facility] Date: 01/03/25 Location: [facility] Sex: M C Admitted: Reason For Study Reason For Study: Valve Replacement Procedure This was a 2D Doppler, Color Flow transthoracic echocardiogram. The study was technically difficult. Contrast injection was performed. Exam performed in department. Left Ventricle Normal LV size. Left ventricular systolic function is normal. The left ventricular ejection fraction is 65 %. Stage 1 diastolic dysfunction. No regional wall motion abnormalities noted. Right Ventricle Normal RV size. Normal systolic function. Atria The left atrium is mildly enlarged. Normal right atrium. Mitral Valve There is mild mitral annular calcification. Tricuspid Valve Normal tricuspid valve. Aortic Valve Peak aortic valve gradient 63 mmHg. Mean aortic valve gradient 37 mmHg. Bioprosthetic aortic valve. Pulmonic Valve The pulmonic valve is not well visualized. Great Vessels Normal sized aortic root. The pulmonary artery is normal size. Pericardium/Pleural No pericardial effusion. Medication 22 gauge I.V. with prn adaptor inserted into left arm. Diluted definity 2ml given slow IV push to enhance endocardial definition. MMode/2D Measurements Calculations LVIDd: 5.3 cm IVSd: 0.87 cm LVOT diam: 1.7 cm LVIDs: 3.6 cm LVPWd: 1.0 cm FS: 32.0 % LVOT area: 2.3 cm2 LAV(MOD-sp4): 83.3 ml LVAd ap4: 39.6 cm2 SV(MOD-sp4): 78.8 ml LVLd ap4: 8.4 cm SI(MOD-sp4): 31.5 ml/m2 EDV(MOD-sp4): 151.6 ml EDV(sp4-el): 159.2 ml LVAs ap4: 25.1 cm2 LVLs ap4: 7.3 cm ESV(MOD-sp4): 72.8 ml ESV(sp4-el): 73.6 ml EF(MOD-sp4): 52.0 % EF(sp4-el): 53.8 % SV(sp4-el): 85.7 ml LA A4 area: 25.0 cm2 LA dimension(2D): 5.7 cm RA A4 area: 21.3 cm2 Time Measurements MV dec time: 0.42 sec Doppler Measurements Calculations MV E max estela: 128.3 cm/sec Lat Peak E' Estela: 6.3 cm/sec Med Peak E' Estela: 6.2 cm/sec MV A max estela: 171.8 cm/sec E/E' lat: 20.2 E/E' med: 20.6 MV E/A: 0.75 MV V2 max: 202.9 cm/sec MV P1/2t max estela: 143.2 cm/sec Ao V2 max: 397.1 cm/sec MV max P.5 mmHg MV P1/2t: 130.4 msec Ao max P.2 mmHg MV V2 mean: 106.5 cm/sec MV dec slope: 321.6 cm/sec2 Ao V2 mean: 284.2 cm/sec MV mean P.3 mmHg MVA(P1/2t): 1.7 cm2 Ao mean P.9 mmHg MV V2 VTI: 55.2 cm Ao V2 VTI: 78.5 cm MVA(VTI): 1.6 cm2 AV (velocity ratio): 0.49 ANGELICA(I,D): 1.1 cm2 ANGELICA(V,D): 0.94 cm2 LV V1 max: 162.9 cm/sec MR max estela: 563.0 cm/sec SV(LVOT): 87.8 ml LV V1 max P.6 mmHg MR max P.8 mmHg LV V1 mean P.1 mmHg LV V1 mean: 115.5 cm/sec LV V1 VTI: 38.2 cm ECHO/Echo Complete W/ Contrast Interpretation Summary Normal LV size. Left ventricular systolic function is normal. The left ventricular ejection fraction is 65 %. Stage 1 diastolic dysfunction. Mean aortic valve gradient 37 mmHg. Bioprosthetic aortic valve. Compared to the previous the gradients are mildly increased. Contrast injection was performed. Ordering Physician: Brittani Graham Referring Physician: Brittani Graham Performed By: Dean Glynn RCS 01/03/25 1533 Date Fred Bond MD CC: TRUDY Graham; Dr. Aury Schneider DO Date Dictated: 01/03/25 1306 Date Transcribed: 01/03/25 1533 Stock Grader: Signed Normal [facility] Echocardiogram study reportO rdered By: Fred Bond on 01-03-2025 Study report [facility] [address] [place] [address] Echo Complete W/ Contrast 01/03/25 1306 MR#: [id number] Acct: [id number] Name: MICHELLE,CHRISTOPHER TILLEY Rep #:[id number] : 1955 69 From: Fred Rolle Attending Dr: TRUDY Tillman tatus: REG CLI Ordering Dr: Brittani Graham NP Randy e: 01/03/25 Location: [facility] Sex: M C Admitted: Reason For Study Reason For Study: Valve Replacement Procedure This was a 2D Doppler, Color Flow transthoracic echocardiogram. The study was technically difficult. Contrast injection was performed. Exam performed in department. Left Ventricle Normal LV size. Left ventricular systolic function is normal. The left ventricular ejection fraction is 65 %. Stage 1 diastolic dysfunction. No regional wall motion abnormalities noted. Right Ventricle Normal RV size. Normal systolic function. Atria The left atrium is mildly enlarged. Normal right atrium. Mitral Valve There is mild mitral annular calcification. Tricuspid Valve Normal tricuspid valve. Aortic Valve Peak aortic valve gradient 63 mmHg. Mean aortic valve gradient 37 mmHg. Bioprosthetic aortic valve. Pulmonic Valve The pulmonic valve is not well visualized. Great Vessels Normal sized aortic root. The pulmonary artery is normal size. Pericardium/Pleural No pericardial effusion. Medication 22 gauge I.V. with prn adaptor inserted into left arm. Diluted definity 2ml given slow IV push to enhance endocardial definition. MMode/2D Measurements & Calculations LVIDd: 5.3 cm IVSd: 0.87 cm LVOT diam: 1.7 cm LVIDs: 3.6 cm LVPWd: 1.0 cm FS: 32.0 % LVOT area: 2.3 cm2 LAV(MOD-sp4): 83.3 ml LVAd ap4: 39.6 cm2 SV(MOD-sp4): 78.8 ml LVLd ap4: 8.4 cm SI(MOD-sp4): 31.5 ml/m2 EDV(MOD-sp4): 151.6 ml EDV(sp4-el): 159.2 ml LVAs ap4: 25.1 cm2 LVLs ap4: 7.3 cm ESV(MOD-sp4): 72.8 ml ESV(sp4-el): 73.6 ml EF(MOD-sp4): 52.0 % EF(sp4-el): 53.8 % SV(sp4-el): 85.7 ml LA A4 area: 25.0 cm2 LA dimension(2D): 5.7 cm RA A4 area: 21.3 cm2 Time Measurements MV dec time: 0.42 sec Doppler Measurements & Calculations MV E max estela: 128.3 cm/sec Lat Peak E' Estela: 6.3 cm/sec Med Peak E' Estela: 6.2 cm/sec MV A max estela: 171.8 cm/sec E/E' lat: 20.2 E/E' med: 20.6 MV E/A: 0.75 MV V2 max: 202.9 cm/sec MV P1/2t max estela: 143.2 cm/sec Ao V2 max: 397.1 cm/sec MV max P.5 mmHg MV P1/2t: 130.4 msec Ao max P.2 mmHg MV V2 mean: 106.5 cm/sec MV dec slope: 321.6 cm/sec2 Ao V2 mean: 284.2 cm/sec MV mean P.3 mmHg MVA(P1/2t): 1.7 cm2 Ao mean P.9 mmHg MV V2 VTI: 55.2 cm Ao V2 VTI: 78.5 cm MVA(VTI): 1.6 cm2 AV (velocity ratio): 0.49 ANGELICA(I,D): 1.1 cm2 ANGELICA(V,D): 0.94 cm2 LV V1 max: 162.9 cm/sec MR max estela: 563.0 cm/sec SV(LVOT): 87.8 ml LV V1 max P.6 mmHg MR max P.8 mmHg LV V1 mean P.1 mmHg LV V1 mean: 115.5 cm/sec LV V1 VTI: 38.2 cm ECHO/Echo Complete W/ Contrast Interpretation Summary Normal LV size. Left ventricular systolic function is normal. The left ventricular ejection fraction is 65 %. Stage 1 diastolic dysfunction. Mean aortic valve gradient 37 mmHg. Bioprosthetic aortic valve. Compared to the previous the gradients are mildly increased. Contrast injection was performed. Ordering Physician: Brittani Graham Referring Physician: Brittani Graham Performed By: Dean Glynn RCS 01/03/25 1533 Date _ Fred Bond MD CC: TRUDY Graham; Dr. Aury Schneider, DO ~ Date Dictated: 01/03/25 1306 Date Transcribed: 01/03/25 1533 Stock Grader: Signed [facility] Work Phone: Final Surgical Pathology Rep [facility] 12-21-2024 Final Surgical Pathology Report . Pathology Reports Accession: Collected Date/Time: Received Date/Time: Pathologist: [id number] 12/19/2024 10:32 EDT 12/20/2024 08:48 EDT ELEUTERIO MIRAMONTES MD Final Surgical Pathology Report DIAGNOSIS: UMBILICAL HERNIA REPAIR: - FIBROMEMBRANOUS AND OMENTAL TISSUE CONSISTENT WITH UMBILICAL HERNIA REPAIR CLINICAL INFORMATION: Procedure: OPEN UMBILICAL HERNIA REPAIR Preoperative diagnosis: UMBILICAL HERNIA Postoperative diagnosis: UMBILICAL HERNIA SPECIMEN: A OMENTUM GROSS DESCRIPTION: All parts labelled with patient name and [id number] Received in formalin labelled omentum Is a yellow lobulated balled up segment of omentum measuring 12 x 12 x 3 cm. Tissue is serially sectioned to reveal yellow, lobulated cut surfaces with a central holguin -light brown membranous soft tissue measuring 3 x 1.5 x 1.5 cm. No masses identified grossly. RS-2 Aury Esquivel, Pathologists' Manager Immunology (ASCP) Performed by AURY ESQUIVEL MICROSCOPIC DESCRIPTION: The microscopic examination is performed, except in the case of Gross Only. Verified by Pathology Report verified by [facility] ELEUTERIO MIRAMONTES Sign out Date: 12/21/2024 13:09 Performing Lab: [facility], [address] [place] [address] Pathology Dept Disclaimer If ancillary studies were utilized, the following Laboratory Developed Test (LDT) disclaimer will apply: Under CLIA requirements, [facility] Pathology Laboratory is qualified to perform high complexity testing. For all ancillary stains, positive and negative controls stain appropriately. Performance characteristics of immunohistochemical and chromogenic in-situ hybridization tests have been determined by [facility] Pathology Laboratory. These tests are used for clinical purposes, They should not be regarded as investigational or for research. Normal [facility] .Auto Diffon 12-14-2024 Basophil, Absolute 0.1 10 3/mcL Normal 0.0-0.3 [facility] Comment on above: Performed By: #### C BC, ANEU, CMP, GFR, ADIFF #### [address] [address] Basophils/100 WBC (Bld) 1.0 % Normal 0.0-2.5 [facility] Comment on above: Performed By: #### C BC, ANEU, CMP, GFR, ADIFF #### [address] [address] Eosinophil, Absolute 0.3 10 3/mcL Normal 0.0-0.7 [facility] Comment on above: Performed By: #### C BC, ANEU, CMP, GFR, ADIFF #### [address] [address] Eosinophils/100 WBC (Bld) 4.1 % Normal 0.0-6.0 [facility] Comment on above: Performed By: #### C BC, ANEU, CMP, GFR, ADIFF #### [address] [address] Lymphocyte, Absolute 1.3 10 3/mcL Normal 0.9-4.3 [facility] Comment on above: Performed By: #### C BC, ANEU, CMP, GFR, ADIFF #### [address] [address] Lymphocytes/100 WBC (Bld) 17.9 % Low 20.0-40.0 [facility] Comment on above: Performed By: #### C BC, ANEU, CMP, GFR, ADIFF #### [address] [address] Monocyte, Absolute 0.5 10 3/mcL Normal 0.1-1.4 [facility] Comment on above: Performed By: #### C BC, ANEU, CMP, GFR, ADIFF #### [address] [address] Monocytes/100 WBC (Bld) 7.0 % Normal 2.0-13.0 [facility] Comment on above: Performed By: #### C BC, ANEU, CMP, GFR, ADIFF #### [address] [address] Neutrophils/100 WBC (Bld) 70.0 % Normal 50.0-75.0 [facility] Comment on above: Performed By: #### C BC, ANEU, CMP, GFR, ADIFF #### [address] [address] .GFRon 12-14-2024 Estimated Glomerular Filtration Rate 89 ml/min/1.73sqm Normal [facility] Comment on above: Result Comment: Stages of Chronic Kidney Disease (CKD) Stage Description eGFR(ml/min/1.73 sq.m.) CKD 1 Normal kidney function or >=90 normal kindney function with possible kidney damage (ex. Proteinuria) CKD 2 Kidney damage with mild loss 60-89 of kidney function CKD 3a Mild to moderate loss of kidney 45-59 function CKD 3b Moderate to severe loss of 30-44 of kindey function CKD 4 Severe loss of kidney function 15-29 CKD 5 Kidney failure <15 Note: (go live 2024) the eGFR calculation was updated to the 2020 CKD-EPI creatinine equation without a race factor to calculate the eGFR results. Performed By: #### C BC, ANEU, CMP, GFR, ADIFF #### [address] [address] .NEUABSon 12-14-2024 Neutrophil, Absolute 5.1 10 3/mcL Normal 2.3-8.1 [facility] Comment on above: Performed By: #### C BC, ANEU, CMP, GFR, ADIFF #### [address] [address] CBCon 12-14-2024 Erythrocyte distribution width (RBC) [Ratio] 14.2 % Normal 11.5-15.5 [facility] Comment on above: Performed By: #### C BC, ANEU, CMP, GFR, ADIFF #### [address] [address] Hematocrit (Bld) [Volume fraction] 50.2 % Normal 40.0-52.0 [facility] Comment on above: Performed By: #### C BC, ANEU, CMP, GFR, ADIFF #### [place] [address] Hgb 16.7 G/dL Normal 13.0-17.5 [facility] Comment on above: Performed By: #### C BC, ANEU, CMP, GFR, ADIFF #### [place] [address] MCH (RBC) [Entitic mass] 30.9 pg Normal 27.0-33.0 [facility] Comment on above: Performed By: #### C BC, ANEU, CMP, GFR, ADIFF #### [place] [address] MCHC 33.3 G/dL Normal 32.0-36.0 [facility] Comment on above: Performed By: #### C BC, ANEU, CMP, GFR, ADIFF #### [place] [address] MCV (RBC) [Entitic vol] 92.8 fL Normal 81.0-100.0 [facility] Comment on above: Performed By: #### C BC, ANEU, CMP, GFR, ADIFF #### [place] [address] Platelet 257 10 3/mcL Normal 150-450 [facility] Comment on above: Performed By: #### C BC, ANEU, CMP, GFR, ADIFF #### [place] [address] Platelet mean volume (Bld) [Entitic vol] 9.0 fL Normal 6.4-10.5 [facility] Comment on above: Performed By: #### C BC, ANEU, CMP, GFR, ADIFF #### [place] [address] RBC 5.40 10 6/mcL Normal 4.50-6.00 [facility] Comment on above: Performed By: #### C BC, ANEU, CMP, GFR, ADIFF #### [place] [id number] WBC 7.3 10 3/mcL Normal 4.5-10.8 [facility] Comment on above: Performed By: #### C BC, ANEU, CMP, GFR, ADIFF #### [place] [id number] CMPon 12-14-2024 Albumin Level 4.0 G/dL Normal 3.2-4.8 [facility] Comment on above: Performed By: #### C BC, ANEU, CMP, GFR, ADIFF #### [place] [address] Albumin/Globulin [Mass ratio] 1.2 {ratio} Normal 0.9-1.6 [facility] Comment on above: Performed By: #### C BC, ANEU, CMP, GFR, ADIFF #### [place] [address] ALP [Catalytic activity/Vol] 96 U/L Normal 38-126 [facility] Comment on above: Performed By: #### C BC, ANEU, CMP, GFR, ADIFF #### [place] [address] ALT [Catalytic activity/Vol] 18 U/L Normal 12-55 [facility] Comment on above: Performed By: #### C BC, ANEU, CMP, GFR, ADIFF #### [place] [address] AST [Catalytic activity/Vol] 23 U/L Normal 8-34 [facility] Comment on above: Performed By: #### C BC, ANEU, CMP, GFR, ADIFF #### [place] [address] Bili Total 0.60 mg/dL Normal 0.20-1.20 [facility] Comment on above: Result Comment: Use of this assay is not recommended for patients undergoing treatment with eltrombopag due to the potential for falsely elevated results. Performed By: #### C BC, ANEU, CMP, GFR, ADIFF #### [place] [address] BUN/Creatinine Ratio 12.0 ratio Normal 10.0-22.0 [facility] Comment on above: Performed By: #### C BC, ANEU, CMP, GFR, ADIFF #### [place] [id number] Calcium [Mass/Vol] 9.3 mg/dL Normal 8.7-10.4 [facility] Comment on above: Performed By: #### C BC, ANEU, CMP, GFR, ADIFF #### [place] [id number] Chloride [Moles/Vol] 103 mmol/L Normal 98-110 [facility] Comment on above: Performed By: #### C BC, ANEU, CMP, GFR, ADIFF #### [place] [id number] CO2 [Moles/Vol] 31 mmol/L Normal 22-32 [facility] Comment on above: Performed By: #### C BC, ANEU, CMP, GFR, ADIFF #### [place] [address] Creatinine [Mass/Vol] 0.92 mg/dL Normal 0.60-1.40 [facility] Comment on above: Result Comment: Test ing performed on [employer] analyzer using enzymatic creatinine methodology. Performed By: #### C BC, ANEU, CMP, GFR, ADIFF #### [place] [address] Electrolyte Balance 5.0 mEq/L Normal 4.0-15.0 [facility] Comment on above: Performed By: #### C BC, ANEU, CMP, GFR, ADIFF #### [address] [address] Globulin 3.4 G/dL Normal 2.5-4.2 [facility] Comment on above: Performed By: #### C BC, ANEU, CMP, GFR, ADIFF #### [place] [id number] Glucose [Mass/Vol] 99 mg/dL Normal 82-115 [facility] Comment on above: Performed By: #### C BC, ANEU, CMP, GFR, ADIFF #### [address], [place] [address] Potassium [Moles/Vol] 4.0 mmol/L Normal 3.5-5.0 [facility] Comment on above: Performed By: #### C BC, ANEU, CMP, GFR, ADIFF #### [facility] [address] [place] [address] Sodium [Moles/Vol] 139 mmol/L Normal 136-145 [facility] Comment on above: Performed By: #### C BC, ANEU, CMP, GFR, ADIFF #### [facility] [address] [place] [address] Total Protein 7.4 G/dL Normal 5.7-8.2 [facility] Comment on above: Performed By: #### C BC, ANEU, CMP, GFR, ADIFF #### [facility] [address] [place] [address] Urea nitrogen [Mass/Vol] 11.0 mg/dL Normal 8.0-22.0 [facility] Comment on above: Performed By: #### C BC, ANEU, CMP, GFR, ADIFF #### [facility] [address] [place] [address] Cardiology Visit Reporton Cardiology Visit Report [facility] [address] [place] [address]. [address] [place] [address] OFFICE VISIT Date of Service: 12/13/24 MR#: [id number] Acct: [id number] Name: CHRISTOPHER SILVA Rep #: [id number] : 1955 Provider: TRUDY farfan Age/Sex: 69/M Location: [facility] Status: Signed HPI HPI History of Present Illness Details: Christopher Silva is a 69 year old man who presents to the office today for a cardiovascular follow-up visit. Previously, he had presented to [facility] in August of 2021 with dizziness. He also had mild troponin elevation at that time. He underwent a cardiac catheterization which demonstrated minimal coronary artery disease. He was thought at that time to have mild aortic stenosis clinically as well as hypertension. Follow-up echocardiogram demonstrated severe aortic stenosis with a peak gradient of 70 mmHg and a mean gradient of 43 mmHg. He was sent for and underwent TAVR with a 23 mm sapient S3 valve. He was initially put on aspirin as well as clopidogrel. A follow-up echocardiogram performed on January 02 demonstrated that the mean systolic gradient was 29 mmHg. He had presented to the emergency room in August of 2023, with complaints of chest pain. He described this as a squeezing sensation in the middle of his chest, accompanied by SOB. His troponins were elevated at 175, 180. He underwent a Chest CT, which was negative for PE. 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 From a cardiac standpoint, the patient is doing well. He denies any palpitations, chest pain, pressure or heaviness. He denies SOB, Orthopnea, and PND. He does not have bleeding issues; no blood in urine, stool, or nosebleeds. He denies any decrease in energy level, myalgias, or claudication. He does not have edema, or sudden weight gain. He denies lightheadedness, dizziness, syncopal or near syncopal episodes, and headaches. 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 Is patient in pain?: No Allergies hydromorphone HCl (From Dilaudid) Allergy (Severe, Verified 12/13/24 13:21) nausea, confusion hydromorphone (From Dilaudid) Adverse Reaction (Severe, Verified 12/13/24 13:21) Nausea/Vom/Diarrhea Medications ???Medication ???Instructions ???Recorded ???Confirmed ???Type furosemide 40 mg tablet 40 mg PO DAILY diuretic/water pill 02/14/15 12/13/24 History omega-3 acid ethyl esters 1 gram 2 gm PO DAILY supplement 02/14/15 12/13/24 History capsule potassium chloride 20 mEq 20 meq PO DAILY supplement 5 12/13/24 History tablet,extended release(part/cryst) testosterone cypionate 100 mg/mL 1 ml IM Q14D hormone 02/14/1510/04 History intramuscular oil Held on 03/15/24. Instructions: MD Ordered folic acid 800 mcg tablet 0.8 mg PO DAILY supplement 7 12/13/24 History benazepril 40 mg tablet 40 mg PO DAILY blood pressure 06/1412/13/24 History ergocalciferol (vitamin D2) 1,250 50,000 unit PO Q7D supplement 01/3012/13/24 History mcg (50,000 unit) capsule pregabalin 100 mg capsule 100 mg PO TID pain 01/25/21 History sildenafil 100 mg tablet 100 mg PO DAILY PRN Erectile 11/0412/13/24 History Dysfunction aspirin 81 mg tablet,delayed 81 mg PO DAILY 12/03/22 12/13/24 H istory release vitamin L38-bbrvqdc B1 5.5 mg-12.5 1 ml PO BID 12/03/22 12/13/24 Hi story mcg/5 mL oral liquid acetaminophen 500 mg tablet 1,000 mg PO Q8 PRN pain 12/04/22 0 12/13/24 History ascorbic acid (vitamin C) 1,000 mg 1 g PO DAILY 05/12/23 12/13/24 H istory capsule levothyroxine 50 mcg tablet 50 mcg PO DAILY 05/12/23 12/13/24 History diclofenac sodium 1 % topical gel 2 g topical ONCE PRN pain 4 12/13/24 History (Voltaren Arthritis Pain) calcium 500 mg (as 1 tab PO DAILY 90 days #90 tabs 12/13/24 Rx carbonate)-vitamin D3 15 mcg (600 unit) tablet (Os-Andrew 500 + D3) lisdexamfetamine 70 mg capsule 70 mg PO QAM 12/13/24 12/13/24 His tory (Vyvanse) niacin 500 mg tablet 1,500 mg PO QHS supplement 5 12/13/24 History Ejection fraction %: 60 Have you fallen in the past year?: No PFSH Medical History Thyroid disease BiPAP (biphasic positive airway pressure) dependence High cholesterol Back pain ( 2023) History of hiatal hernia Gastric reflux Hypertension History of transesophageal echocardiography (CHIKA) Blepharitis of left lower eyelid Chalazion left lower eyel (more content not included)... Normal [facility] Arterial study reportOrdered By: Akbar Louis on 11-14-2024 Noninvasive arteriosclerosis study report [facility] [address] [place] [address] Lower Ext Art Exam w/o Exercis 11/14/24 1442 MR#: [id number] Acct: [id number] Name: CHRISTOPHER SILVA Rep #:[id number] : 1955 69 From: Akbar Rolle Attending Dr: HELEN Nash Stat us: REG CLI Ordering Dr: Ely Monsalve Date: Location: [facility] Sex: M C Admitted: Reason For Study Reason For Study: PVD Procedure A bilateral lower extremity continuous wave Doppler with analog waveform analysis,segmental pressures,and ankle brachial indexes without exercise. Left Segmental Pressures Left brachial= 132mmHg. Left posterior tibial artery = >254mmHg. Left dorsalis pedis artery = >254mmHg. Left digit = 100 mmHg. Right Segmental Pressures Right brachial= 137mmHg. Right posterior tibial artery = >254mmHg. Right dorsalis pedis artery = >254mmHg. Right digit = 93 mmHg. Indices The right ankle brachial index by the posterior tibial artery is NC. The right ankle brachial index by the dorsalis pedis is NC. The right digital-brachial index is 0.68. The left ankle brachial index by the posterior tibial artery is NC. The left ankle brachial index by the dorsalis pedis is NC. The left digital-brachial index is 0.73. VL/Lower Ext Art Exam w/o Exercis Interpretation Summary Right ROSA not able to be obtained due to non-compressible vessels. Doppler/PVR waveforms of the right leg normal at rest. TBI diminished, pedal/digit disease vs spasm. Left ROSA not able to be obtained due to non compressible vessels. Doppler/PVR waveforms of the left leg normal at rest. TBI diminished, pedal/digit disease vs spasm. Ordering Physician: Ely Monsalve Referring Physician: Aury Schneider Performed By: Debi Lundy RDCS/RVT 11/14/241742 Date _ Akbar Louis MD CC: HELEN Nash; Dr. Aury Schneider, DO ~ Date Dictated: 11/14/24 144 Date Transcribed: 11/14/241742 Stock Grader: Signed [facility] Work Phone: Lower Ext Art Exam w/o Exerc betty 11-14-2024 Lower Ext Art Exam w/o Exercis [facility] [address] [place] [address] Lower Ext Art Exam w/o Exercis 11/14/241441 MR#: [id number] Acct: [id number] Name: CHRISTOPHER SILVA Rep #: [id number] : 1955 69 From: Akbar Louis MD Attending Dr: HELEN Nash Status: REG CLI Ordering Dr: Ely Monsalve Date: 11/14/24 Location: [facility]S Sex: M C Admitted: Reason For Study Reason For Study: PVD Procedure A bilateral lower extremity continuous wave Doppler with analog waveform analysis,segmental pressures,and ankle brachial indexes without exercise. Left Segmental Pressures Left brachial= 132mmHg. Left posterior tibial artery = >254mmHg. Left dorsalis pedis artery = >254mmHg. Left digit = 100 mmHg. Right Segmental Pressures Right brachial= 137mmHg. Right posterior tibial artery = >254mmHg. Right dorsalis pedis artery = >254mmHg. Right digit = 93 mmHg. Indices The right ankle brachial index by the posterior tibial artery is NC. The right ankle brachial index by the dorsalis pedis is NC. The right digital-brachial index is 0.68. The left ankle brachial index by the posterior tibial artery is NC. The left ankle brachial index by the dorsalis pedis is NC. The left digital-brachial index is 0.73. VL/Lower Ext Art Exam w/o Exercis Interpretation Summary Right ROSA not able to be obtained due to non-compressible vessels. Doppler/PVR waveforms of the right leg normal at rest. TBI diminished, pedal/digit disease vs spasm. Left ROSA not able to be obtained due to non compressible vessels. Doppler/PVR waveforms of the left leg normal at rest. TBI diminished, pedal/digit disease vs spasm. Ordering Physician: Ely Monsalve Referring Physician: Aury Schneider Performed By: Debi Lundy RDCS/RVT 11/14/24 174 Date Akbar Louis MD CC: HELEN Nash; Dr. Aury Schneider, Date Dictated: 11/14/24 1442 Date Transcribed: 11/14/241742 Stock Grader: Signed Normal [facility] MR/BMS.BVSon 11-02-2024 MR/BMS.BVS [facility] [address] [place] [address] OFFICE VISIT Date of Service: 11/02/24 MR#: [id number] Acct: [id number] Name: CHRISTOPHER SILVA Rep #: [id number] : 1955 Provider: HELEN Nash Age/Sex: 69/M Location: [facility] Status: Signed Intake Vital Signs 03/18/24 07:44 10/14/24 08:13 11/02/24 09:03 Height 5 ft 9 in 5 ft 9 in Weight: 322 lb BP 107/73 Blood Pressure Location Lt brachial Position Sitting Respiration 15 Pulse 85 Pulse Source Monitor Temp 97.8 F Temp Source Temporal Pulse Oximetry (%) 98 Oxygen Delivery Method room air Intake Visit Reasons: LUE and LLE coldness, 6 M FU 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 Is patient in pain?: Yes Allergies hydromorphone HCl (From Dilaudid) Allergy (Severe, Verified 11/02/24 09:08) nausea, confusion hydromorphone (From Dilaudid) Adverse Reaction (Severe, Verified 11/02/24 09:08) Nausea/Vom/Diarrhea Medications ???Medication ???Instructions ???Recorded ???Confirmed ???Type furosemide 40 mg tablet 40 mg PO DAILY diuretic/water pill 02/14/15 03/25/24 History niacin 500 mg tablet 500 mg PO QHS supplement 02/14/15 03/25/24 History omega-3 acid ethyl esters 1 gram 2 gm PO DAILY supplement 02/14/15 03/25/24 History capsule potassium chloride 20 mEq 20 meq PO DAILY supplement 5 03/25/24 History tablet,extended release(part/cryst) testosterone cypionate 100 mg/mL 1 ml IM Q14D hormone 02/14/1503/13 History intramuscular oil Held on 03/15/24. Instructions: Ordered folic acid 800 mcg tablet 0.8 mg PO DAILY supplement 7 03/25/24 History benazepril 40 mg tablet 40 mg PO DAILY blood pressure 1207/3103/25/24 History ergocalciferol (vitamin D2) 1,250 50,000 unit PO Q7D supplement 01/3003/25/24 History mcg (50,000 unit) capsule pregabalin 100 mg capsule 100 mg PO TID pain 01/25/21 History sildenafil 100 mg tablet 100 mg PO DAILY PRN Erectile 11/0403/25/24 History Dysfunction aspirin 81 mg tablet,delayed 81 mg PO DAILY 12/03/22 03/25/24 H istory release vitamin L05-heapycs B1 5.5 mg-12.5 1 ml PO BID 12/03/22 03/25/24 Hi story mcg/5 mL oral liquid acetaminophen 500 mg tablet 1,000 mg PO Q8 PRN pain 12/04/22 0 03/25/24 History ascorbic acid (vitamin C) 1,000 mg 1 g PO DAILY 05/12/23 03/25/24 H istory capsule levothyroxine 50 mcg tablet 50 mcg PO DAILY 05/12/23 03/25/24 History diclofenac sodium 1 % topical gel 2 g topical ONCE PRN pain 4 03/25/24 History (Voltaren Arthritis Pain) calcium 500 mg (as 1 tab PO DAILY 90 days #90 tabs 03/25/24 Rx carbonate)-vitamin D3 15 mcg (600 unit) tablet (Os-Andrew 500 + D3) Have you fallen in the past year?: No PFSH Medical History (Updated 11/02/24 @ 13:32 by HELEN Nash) Thyroid disease BiPAP (biphasic positive airway pressure) dependence High cholesterol Back pain ( 2023) History of hiatal hernia Gastric reflux Hypertension History of transesophageal echocardiography (CHIKA) Blepharitis of left lower eyelid Chalazion left lower eyelid Elevated troponin Left shoulder pain Coronary artery disease Wears glasses Cancer Sleep apnea Former smoker Leg cramps History of stress test History of echocardiogram Cardiology follow-up encounter History of hepatitis C Rheumatoid arthritis Hiatal hernia Myasthenia gravis Disc degeneration, lumbar Osteoarthritis of left hip COVID-19 virus detected (08/03/21) Hiatal hernia Hypoxemia Obstructive sleep apnea Nonrheumatic aortic (valve) stenosis Elevated troponin Nonobstructive atherosclerosis of coronary artery Essential (primary) hypertension Bradycardia with 41-50 beats per minute Prostate cancer Knee pain Hay fever Fatigue Shoulder pain Arthritis Hypogonadism in male Dyslipidemia Lower GI bleed Colonic polyp Morbid obesity with BMI of 45.0-49.9, adult Surgical History (Updated 11/02/24 @ 09:29 by Mckenna Whitfield) 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/2024) History of colonoscopy History of cardiac catheterization History of hip replacement ( 2021) History of shoulder surgery History of transcatheter aortic valve replacement (TAVR) (11/26/20) History of lumbar surgery History of left heart catheterization (08/20/20) History of knee surgery History of carpal tunnel release History of back surgery History of elbow surgery History of cataract surgery H/O laminectomy History of appendectomy H/O total knee replacement Family History Mother Skin cancer Social History household members: spouse current occupational status: employed [employer] (more content not included)... Normal [facility] TFTESTon 08-17-2024 Free Testost Direct 31.5 pg/mL High 6.6-18.1 [facility] Comment on above: Result Comment: Perf ormed At: [facility] [address] [id number] Tien Fabian MD Ph:[phone] Performed At: [facility] [address] [id number] Nicolas Yanez PhD Ph:[phone] Performed By: #### C MP, CBC, ADIFF, GFR, LIPID, FT4, PSA, [id number], TSH, ANEU #### [place] [address] Testosterone Lvl 1492 ng/dL High 264-916 [facility] Comment on above: Result Comment: Adul t male reference interval is based on a population of healthy nonobese males (BMI <30) between 19 and 39 years old. Jonathan et.al. JCEM 2017,102;5062-6339. PMID: [id number]. Performed By: #### C MP, CBC, ADIFF, GFR, LIPID, FT4, PSA, [id number], TSH, ANEU #### [place] [id number] PSAon 08-13-2024 Prostate Specific Antigen 0.18 ng/mL Normal 0.00-4.00 [facility] Comment on above: Performed By: #### C MP, CBC, ADIFF, GFR, LIPID, FT4, PSA, [id number], TSH, ANEU #### [place] [id number] .Auto Diffon 08-12-2024 Basophil, Absolute 0.1 10 3/mcL Normal 0.0-0.2 [facility] Comment on above: Performed By: #### C MP, CBC, ADIFF, GFR, LIPID, FT4, PSA, [id number], TSH, ANEU #### [address] [address] Basophils/100 WBC (Bld) 1.4 % Normal 0.0-2.5 [facility] Comment on above: Performed By: #### C MP, CBC, ADIFF, GFR, LIPID, FT4, PSA, [id number], TSH, ANEU #### [address] [address] Eosinophil, Absolute 0.2 10 3/mcL Normal 0.0-0.7 [facility] Comment on above: Performed By: #### C MP, CBC, ADIFF, GFR, LIPID, FT4, PSA, [id number], TSH, ANEU #### [address] [address] Eosinophils/100 WBC (Bld) 3.4 % Normal 0.0-7.0 [facility] Comment on above: Performed By: #### C MP, CBC, ADIFF, GFR, LIPID, FT4, PSA, [id number], TSH, ANEU #### [address] [address] Lymphocyte, Absolute 1.3 10 3/mcL Normal 0.9-4.3 [facility] Comment on above: Performed By: #### C MP, CBC, ADIFF, GFR, LIPID, FT4, PSA, [id number], TSH, ANEU #### [address] [address] Lymphocytes/100 WBC (Bld) 22.0 % Normal 20.0-40.0 [facility] Comment on above: Performed By: #### C MP, CBC, ADIFF, GFR, LIPID, FT4, PSA, [id number], TSH, ANEU #### [address] [address] Monocyte, Absolute 0.4 10 3/mcL Normal 0.1-1.4 [facility] Comment on above: Performed By: #### C MP, CBC, ADIFF, GFR, LIPID, FT4, PSA, [id number], TSH, ANEU #### [address] [address] Monocytes/100 WBC (Bld) 6.8 % Normal 2.0-13.0 [facility] Comment on above: Performed By: #### C MP, CBC, ADIFF, GFR, LIPID, FT4, PSA, [id number], TSH, ANEU #### [address] [address] Neutrophils/100 WBC (Bld) 66.4 % Normal 50.0-75.0 [facility] Comment on above: Performed By: #### C MP, CBC, ADIFF, GFR, LIPID, FT4, PSA, [id number], TSH, ANEU #### [address] [address] .GFRon 08-12-2024 GFR Non- 82 ml/min/1.73sqm Normal [facility] Comment on above: Result Comment: GFR Population mean for , Non- Americans Ages 20-29 = 116 mL/min/1.73 sq.m. Ages 30-39 = 107 mL/min/1.73 sq.m. Ages 40-49 = 99 mL/min/1.73 sq.m. Ages 50-59 = 93 mL/min/1.73 sq.m. Ages 60-69 = 85 mL/min/1.73 sq.m. Ages 70+ = 75 mL/min/1.73 sq.m. Chronic Kidney Disease: Less than 60 mL/min/1.73 square meters End Stage Renal Disease: Less than 15 mL/min/1.73 square meters Performed By: #### C MP, CBC, ADIFF, GFR, LIPID, FT4, PSA, [id number], TSH, ANEU #### [address] [address] GFR 100 ml/min/1.73sqm Normal [facility] Comment on above: Result Comment: GFR Population mean for , Non- Americans Ages 20-29 = 116 mL/min/1.73 sq.m. Ages 30-39 = 107 mL/min/1.73 sq.m. Ages 40-49 = 99 mL/min/1.73 sq.m. Ages 50-59 = 93 mL/min/1.73 sq.m. Ages 60-69 = 85 mL/min/1.73 sq.m. Ages 70+ = 75 mL/min/1.73 sq.m. Chronic Kidney Disease: Less than 60 mL/min/1.73 square meters End Stage Renal Disease: Less than 15 mL/min/1.73 square meters Performed By: #### C MP, CBC, ADIFF, GFR, LIPID, FT4, PSA, [id number], TSH, ANEU #### [place] [address] .NEUABSon 08-12-2024 Neutrophil, Absolute 3.8 10 3/mcL Normal 2.3-8.1 [facility] Comment on above: Performed By: #### C MP, CBC, ADIFF, GFR, LIPID, FT4, PSA, [id number], TSH, ANEU #### [place] [address] CBCon 08-12-2024 Erythrocyte distribution width (RBC) [Ratio] 14.5 % Normal 11.5-15.5 [facility] Comment on above: Performed By: #### C MP, CBC, ADIFF, GFR, LIPID, FT4, PSA, [id number], TSH, ANEU #### [place] [address] Hematocrit (Bld) [Volume fraction] 45.9 % Normal 40.0-52.0 [facility] Comment on above: Performed By: #### C MP, CBC, ADIFF, GFR, LIPID, FT4, PSA, [id number], TSH, ANEU #### [place] [address] Hgb 15.5 G/dL Normal 13.0-17.5 [facility] Comment on above: Performed By: #### C MP, CBC, ADIFF, GFR, LIPID, FT4, PSA, [id number], TSH, ANEU #### [place] [address] MCH (RBC) [Entitic mass] 30.8 pg Normal 27.0-33.0 [facility] Comment on above: Performed By: #### C MP, CBC, ADIFF, GFR, LIPID, FT4, PSA, [id number], TSH, ANEU #### [address] [address] MCHC 33.8 G/dL Normal 32.0-36.0 [facility] Comment on above: Performed By: #### C MP, CBC, ADIFF, GFR, LIPID, FT4, PSA, [id number], TSH, ANEU #### [address] [address] MCV (RBC) [Entitic vol] 91.4 fL Normal 81.0-100.0 [facility] Comment on above: Performed By: #### C MP, CBC, ADIFF, GFR, LIPID, FT4, PSA, [id number], TSH, ANEU #### [place] [address] Platelet 286 10 3/mcL Normal 150-450 [facility] Comment on above: Performed By: #### C MP, CBC, ADIFF, GFR, LIPID, FT4, PSA, [id number], TSH, ANEU #### [address] [address] Platelet mean volume (Bld) [Entitic vol] 9.2 fL Normal 6.4-10.5 [facility] Comment on above: Performed By: #### C MP, CBC, ADIFF, GFR, LIPID, FT4, PSA, [id number], TSH, ANEU #### [place] [address] RBC 5.02 10 6/mcL Normal 4.50-6.00 [facility] Comment on above: Performed By: #### C MP, CBC, ADIFF, GFR, LIPID, FT4, PSA, [id number], TSH, ANEU #### [address] [address] WBC 5.8 10 3/mcL Normal 4.5-10.8 [facility] Comment on above: Performed By: #### C MP, CBC, ADIFF, GFR, LIPID, FT4, PSA, [id number], TSH, ANEU #### [address] [address] CMPon 08-12-2024 Albumin Level 3.6 G/dL Normal 3.4-4.8 [facility] Comment on above: Performed By: #### C MP, CBC, ADIFF, GFR, LIPID, FT4, PSA, [id number], TSH, ANEU #### [place] [address] Albumin/Globulin [Mass ratio] 1.0 {ratio} Low 1.1-2.5 [facility] Comment on above: Performed By: #### C MP, CBC, ADIFF, GFR, LIPID, FT4, PSA, [id number], TSH, ANEU #### [address] [address] ALP [Catalytic activity/Vol] 111 U/L Normal 40-135 [facility] Comment on above: Performed By: #### C MP, CBC, ADIFF, GFR, LIPID, FT4, PSA, [id number], TSH, ANEU #### [address] [address] ALT [Catalytic activity/Vol] 21 U/L Normal 16-63 [facility] Comment on above: Performed By: #### C MP, CBC, ADIFF, GFR, LIPID, FT4, PSA, [id number], TSH, ANEU #### [address] [address] AST [Catalytic activity/Vol] 28 U/L Normal 10-40 [facility] Comment on above: Performed By: #### C MP, CBC, ADIFF, GFR, LIPID, FT4, PSA, [id number], TSH, ANEU #### [place] [address]17 Bili Total 0.4 mg/dL Normal 0.2-1.0 [facility] Comment on above: Result Comment: Use of this assay is not recommended for patients undergoing treatment with eltrombopag due to the potential for falsely elevated results. Performed By: #### C MP, CBC, ADIFF, GFR, LIPID, FT4, PSA, [id number], TSH, ANEU #### [address] [address] BUN/Creatinine Ratio 13 ratio Normal 7-27 [facility] Comment on above: Performed By: #### C MP, CBC, ADIFF, GFR, LIPID, FT4, PSA, [id number], TSH, ANEU #### [place] [id number] Calcium [Mass/Vol] 8.7 mg/dL Normal 8.4-10.2 [facility] Comment on above: Performed By: #### C MP, CBC, ADIFF, GFR, LIPID, FT4, PSA, [id number], TSH, ANEU #### [place] [address] Chloride [Moles/Vol] 102 mmol/L Normal 98-107 [facility] Comment on above: Performed By: #### C MP, CBC, ADIFF, GFR, LIPID, FT4, PSA, [id number], TSH, ANEU #### [place] [address] CO2 [Moles/Vol] 30 mmol/L Normal 23-31 [facility] Comment on above: Performed By: #### C MP, CBC, ADIFF, GFR, LIPID, FT4, PSA, [id number], TSH, ANEU #### [address] [address] Creatinine [Mass/Vol] 0.91 mg/dL Normal 0.70-1.30 [facility] Comment on above: Result Comment: Test ing performed on Siemens Dimension EXL analyzer using a modified kinetic Tommie technique. Performed By: #### C MP, CBC, ADIFF, GFR, LIPID, FT4, PSA, [id number], TSH, ANEU #### [place] [address] Electrolyte Balance 6.0 mEq/L Normal 4.0-15.0 [facility] Comment on above: Performed By: #### C MP, CBC, ADIFF, GFR, LIPID, FT4, PSA, [id number], TSH, ANEU #### [address] [address] Globulin 3.6 G/dL Normal [facility] Comment on above: Performed By: #### C MP, CBC, ADIFF, GFR, LIPID, FT4, PSA, [id number], TSH, ANEU #### [address] [address] Glucose [Mass/Vol] 100 mg/dL Normal 83-110 [facility] Comment on above: Performed By: #### C MP, CBC, ADIFF, GFR, LIPID, FT4, PSA, [id number], TSH, ANEU #### [address] [address] Potassium [Moles/Vol] 4.5 mmol/L Normal 3.5-5.1 [facility] Comment on above: Performed By: #### C MP, CBC, ADIFF, GFR, LIPID, FT4, PSA, [id number], TSH, ANEU #### [address] [address] Sodium [Moles/Vol] 138 mmol/L Normal 136-145 [facility] Comment on above: Performed By: #### C MP, CBC, ADIFF, GFR, LIPID, FT4, PSA, [id number], TSH, ANEU #### [address] [address] Total Protein 7.2 G/dL Normal 6.4-8.2 [facility] Comment on above: Performed By: #### C MP, CBC, ADIFF, GFR, LIPID, FT4, PSA, [id number], TSH, ANEU #### [address] [address] Urea nitrogen [Mass/Vol] 12 mg/dL Normal 7-18 [facility] Comment on above: Performed By: #### C MP, CBC, ADIFF, GFR, LIPID, FT4, PSA, [id number], TSH, ANEU #### [address] [address] FT4on 08-12-2024 Free T4 [Mass/Vol] 1.00 ng/dL Normal 0.76-1.46 [facility] Comment on above: Performed By: #### C MP, CBC, ADIFF, GFR, LIPID, FT4, PSA, [id number], TSH, ANEU #### [address] [address] LIPIDon 08-12-2024 Cholesterol [Mass/Vol] 194 mg/dL Normal 0-200 [facility] Comment on above: Result Comment: Chol esterol Reference Interval: Less than 200 Desirable 200-239 Borderline high risk 240 and above High risk Performed By: #### C MP, CBC, ADIFF, GFR, LIPID, FT4, PSA, [id number], TSH, ANEU #### [place] [address] Cholesterol in HDL [Mass/Vol] 32 mg/dL Low 40-60 [facility] Comment on above: Performed By: #### C MP, CBC, ADIFF, GFR, LIPID, FT4, PSA, [id number], TSH, ANEU #### [place] [address] Cholesterol in LDL [Mass/Vol] 149 mg/dL High 0-130 [facility] Comment on above: Performed By: #### C MP, CBC, ADIFF, GFR, LIPID, FT4, PSA, [id number], TSH, ANEU #### [address] [address] Triglyceride [Mass/Vol] 63 mg/dL Normal 0-150 [facility] Comment on above: Result Comment: Trig lyceride Reference Interval: Less than 150 Normal 150-199 Borderline high risk 200-499 High risk 500 or higher Very high risk Performed By: #### C MP, CBC, ADIFF, GFR, LIPID, FT4, PSA, [id number], TSH, ANEU #### [place] [address] TSHon 08-12-2024 TSH Qn 1.27 m[IU]/L Normal 0.36-3.74 [facility] Comment on above: Performed By: #### C MP, CBC, ADIFF, GFR, LIPID, FT4, PSA, [id number], TSH, ANEU #### [place] [address] [place], [place] [address] Urgent Care Visit Reporton 0 07-25-2024 Urgent Care Visit Report [facility] [address], [address] [place] [address] OFFICE VISIT Date of Service: 07/25/24 MR#: [id number] Acct: [id number] Name: CHRISTOPHER SILVA Rep #: [id number] : 1955 Provider: HELEN Shipman Age/Sex: 68/M Location: [facility] Status: Signed Intake Vital Signs 03/18/24 07:44 07/25/24 12:24 Height 5 ft 9 in Position Sitting Respiration 17 Pulse 86 Pulse Source NIBP Temp 98.2 F Temp Source Oral Pulse Oximetry (%) 95 Oxygen Delivery Method room air Intake Visit Reasons: COUGH/FEVER Chief Complaint: cough, fever, fatigue 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 Is patient in pain?: No Allergies hydromorphone HCl (From Dilaudid) Allergy (Severe, Verified 07/25/24 12:24) nausea, confusion Medications ???Medication ???Instructions ???Recorded ???Confirmed ???Type furosemide 40 mg tablet 40 mg PO DAILY diuretic/water pill 02/14/15 03/25/24 History niacin 500 mg tablet 500 mg PO QHS supplement 02/14/15 03/25/24 History omega-3 acid ethyl esters 1 gram 2 gm PO DAILY supplement 02/14/15 03/25/24 History capsule potassium chloride 20 mEq 20 meq PO DAILY supplement 02/14/15 03/25/24 History tablet,extended release(part/cryst) testosterone cypionate 100 mg/mL 1 ml IM Q14D hormone 02/14/15 03/25/24 History intramuscular oil folic acid 800 mcg tablet 0.8 mg PO DAILY supplement 03/09/17 03/25/24 History benazepril 40 mg tablet 40 mg PO DAILY blood pressure 07/12/19 03/25/24 History ergocalciferol (vitamin D2) 1,250 50,000 unit PO Q7D supplement 08/19/20 03/25/24 History mcg (50,000 unit) capsule pregabalin 100 mg capsule 100 mg PO TID pain 01/25/21 03/25/24 History sildenafil 100 mg tablet 100 mg PO DAILY PRN Erectile 11/04/21 03/25/24 History Dysfunction calcium 600 mg capsule 1,200 mg PO DAILY supplement 06/26/22 03/25/24 History aspirin 81 mg tablet,delayed 81 mg PO DAILY 12/03/22 03/25/24 History release vitamin [id number] B1 5.5 mg-12.5 1 ml PO BID 12/03/22 03/25/24 History mcg/5 mL oral liquid acetaminophen 500 mg tablet 1,000 mg PO Q8 PRN pain 12/04/22 03/25/24 History ascorbic acid (vitamin C) 1,000 mg 1 g PO DAILY 05/12/23 03/25/24 History capsule levothyroxine 50 mcg tablet 50 mcg PO DAILY 05/12/23 03/25/24 History diclofenac sodium 1 % topical gel 2 g topical ONCE PRN pain 09/18/23 03/25/24 History (Voltaren Arthritis Pain) calcium 500 mg (as 1 tab PO DAILY 90 days #90 tabs 03/18/24 03/25/24 Rx carbonate)-vitamin D3 15 mcg (600 unit) tablet (Os-Andrew 500 + D3) cyclobenzaprine 10 mg tablet 10 mg PO TID muscle spasm 7 days 03/18/24 03/25/24 Rx #21 tabs docusate sodium 100 mg capsule 100 mg PO DAILY 10 days #10 caps 03/18/24 03/25/24 Rx (Colace) oxycodone-acetaminophen 5 mg-325 1 tab PO Q6H pain 7 days #28 tabs 03/18/24 03/25/24 Rx mg tablet (Endocet) azithromycin 250 mg tablet 250 mg PO .COMPLEX #12 tabs 07/25/24 07/25/24 Rx Have you fallen in the past year?: No Nurse's Note: cough, fever, fatigue, rattle in lungs x 2 days. denies VIV TO. declines viral testing. 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) Thyroid disease BiPAP (biphasic positive airway pressure) dependence High cholesterol Back pain History of hiatal hernia Gastric reflux Hypertension History of transesophageal echocardiography (CHIKA) Blepharitis of left lower eyelid Chalazion left lower eyelid Elevated troponin Left shoulder pain Coronary artery disease Wears glasses Cancer Sleep apnea Former smoker Leg cramps History of stress test History of echocardiogram Cardiology follow-up encounter History of hepatitis C Rheumatoid arthritis Hiatal hernia Myasthenia gravis Disc degeneration, lumbar Osteoarthritis of left hip COVID-19 virus detected (08/03/21) Hiatal hernia Hypoxemia Obstructive sleep apnea Nonrheumatic aortic (valve) stenosis Elevated troponin Nonobstructive atherosclerosis of coronary artery Essential (primary) hypertension Bradycardia with 41-50 beats per minute Prostate cancer Knee pain Hay fever Fatigue Shoulder pain Arthritis Hypogonadism in male Dyslipidemia Lower GI bleed Colonic polyp Morbid obesity with BMI of 45.0-49.9, adult Surgical History History of colonoscopy History of cardiac catheterization History of hip replacement ( 2021) History of shoulder surgery History of transcatheter aortic valve replacement (TAVR) (11/26/20) History of lumbar surgery History of left heart catheterization (08/20/20) History of knee surgery History of carpal tunnel release History of back surgery History of elbow surgery History of cataract surgery H/O laminectomy History o (more content not included)... Normal [facility] Abdomen Completeon Abdomen Complete [facility] [address] [place] [id number] Abdomen Complete MR#: [id number] Acct: [id number] Name: CHRISTOPHER SILVA Rep #: [id number] : 1955 M 68 From: Bill Vee DO PCP: Dr. Aury Schneider, Status: REG CLI Study: Abdomen Complete Date of Exam: 06/17/24 Exam# [id number] Ordering Dr: Aury Schneider DO :[id number] INDICATION: LIVER MASS EXAMINATION: Ultrasound US Abdomen Complete TECHNIQUE: King-scale and color Doppler imaging was performed of the abdomen. COMPARISON: FINDINGS: LIVER: There is normal echotexture measuring 19.1 cm. Cystic nodules measuring 1.5 to 4.4 cm. No intrahepatic biliary ductal dilatation. There is no free fluid. GALLBLADDER AND BILIARY TREE: No shadowing gallstone, pericholecystic fluid or gallbladder wall thickening is demonstrated. Mild sludge and debris. The proximal common bile duct measures 4.3 mm, which is within normal limits for the patient''s age. SONOGRAPHIC ARCE''S SIGN: Negative. PANCREAS: Limited visualization of the pancreas. No pancreatic ductal dilatation. SPLEEN: The spleen is normal in size measuring 10.5 cm and homogeneous in echotexture. RIGHT KIDNEY: 13.1 x 6.6 x 5.6 cm. The cortex is 15 mm. There is no hydronephrosis. No shadowing calculus or perinephric collection is demonstrated. 7 mm cyst in possible 6 mm stone. LEFT KIDNEY: 13.1 x 5.6 x 6.5 cm. The cortex is 15 mm. There is no hydronephrosis. No shadowing calculus, focal lesion, or perinephric collection is demonstrated. VESSELS: Submitted longitudinal images of the intra-abdominal aorta demonstrate no gross abnormalities and are unremarkable. The IVC is patent. US/Abdomen Complete IMPRESSION: Hepatic cystic nodules. Sludge and debris in the gallbladder. Right renal cysts and possible stone. Electronically Signed: Bill Vee DO at 20:05 EST Reading Location ID and State: [address] [place] [address] Tel [phone], Service support , CC: Dr. Aury Schneider DO Stock Grader: Signed [facility] Final Surgical Pathology Rep [facility] 05-24-2024 Final Surgical Pathology Report . Pathology Reports Accession: Collected Date/Time: Received Date/Time: Pathologist: [id number] 05/23/2024 09:37 EST 05/23/2024 14:00 EST MD GE WHITFIELD Final Surgical Pathology Report DIAGNOSIS: PYLORIC BIOPSY: - MILD CHRONIC GASTRITIS - NEGATIVE FOR H. PYLORI CLINICAL INFORMATION: Procedure: UPPER ESOPHAGOGASTRODUODENOSCOPY WITH BX Preoperative diagnosis: GASTROESOPHAGEAL REFLUX DISEASE Postoperative diagnosis: GASTROESOPHAGEAL REFLUX DISEASE SPECIMEN: A PYLORIC FOLDS BIOPSY GROSS DESCRIPTION: All parts labelled with patient name and [id number] Received in formalin labeled pyloric fold biopsy are 3 holguin-pink tissue fragments measuring less than 0.1 to 0.3 cm greatest dimension. Smallest fragment may not survive processing. TS-1 Janae Domínguez, Grossing Apartment Coordinator/ Dr. Eleuterio Miramontes, Pathologist Performed by Janae Domínguez MICROSCOPIC DESCRIPTION: The microscopic examination is performed, except in the case of Gross Only. Electronically Signed by Pathology Report verified by [facility] GE WHITFIELD MD Sign out Date: 05/24/2024 09:37 Performing Lab: [facility], [address] [place] [address] Pathology Dept Disclaimer If ancillary studies were utilized, the following Laboratory Developed Test (LDT) disclaimer will apply: Under CLIA requirements, [facility] Pathology Laboratory is qualified to perform high complexity testing. For all ancillary stains, positive and negative controls stain appropriately. Performance characteristics of immunohistochemical and chromogenic in-situ hybridization tests have been determined by [facility] Laboratory. These tests are used for clinical purposes, They should not be regarded as investigational or for research. Normal [facility] Acid Fast Bacillus Cultureon 05-02-2024 [facility] Comments: COLLECTEDI NOR- INCISIONAL BONE CORTEX L 2ND DISTAL _ TESTING PERFORMED AT [facility]. ORIGINAL REPORT ON FILE IN LAB CONTAINS ADDITIONAL TEST SITE INFORMATION. _ Culture, Acid Fast NO ACID-FAST BACILLI ISOLATED AFTER 6 WEEKS. Normal [facility] Comment on above: Performed By: #### M 300.3000, M600.2000, M100.2000, M600.2200, M300.2000, M100.3000, M100.4001 ####[facility] [id number] [place], [address] Acid Fast Bacillus Smear/Flu oron 05-02-2024 [facility] Comments: COLLECTEDI NOR- INCISIONAL BONE CORTEX L 2ND DISTAL _ [facility] ORIGINAL REPORT ON FILE IN LAB CONTAINS ADDITIONAL TEST SITE INFORMATION. _ Smear, Acid Fast Tissue Grinding Smear: Negative [facility] Comment on above: Performed By: #### M 300.3000, M600.2000, M100.2000, M600.2200, M300.2000, M100.3000, M100.4001 ####[facility] [id number] [place], [id number] Culture, Fungus 8482on 05-02 [facility] Comments: COLLECTEDI NOR- INCISIONAL BONE CORTEX L 2ND DISTAL Is this test to exclude patient from TB Isolation? N _ TESTING PERFORMED AT [facility]. ORIGINAL REPORT ON FILE IN LAB CONTAINS ADDITIONAL TEST SITE INFORMATION. _ CUF No yeast or mold isolated after 4 weeks. [facility] Comment on above: Performed By: #### M 300.3000, M600.2000, M100.2000, M600.2200, M300.2000, M100.3000, M100.4001 ####[facility] [id number] [place], [place], [address] Fungus Stain 8136on 05-02-20 [facility] Comments: COLLECTEDI NOR- INCISIONAL BONE CORTEX L 2ND DISTAL Is this test to exclude patient from TB Isolation? N _ TESTING PERFORMED AT [facility]. ORIGINAL REPORT ON FILE IN LAB CONTAINS ADDITIONAL TEST SITE INFORMATION. _ Fungus Stain No fungus observed. Normal [facility] Comment on above: Performed By: #### M 300.3000, M600.2000, M100.2000, M600.2200, M300.2000, M100.3000, M100.4001 ####[facility] [id number] [place], [address] MR/BMSUlysses 04-22-2024 /BMSTerriShay [facility] [address] [place] [address] OFFICE VISIT Date of Service: 04/22/24 MR#: [id number] Acct: [id number] Name: CHRISTOPHER SILVA Rep #: [id number] : 1955 Provider: HEELN Nash Age/Sex: 68/M Location: [facility] Status: Signed Intake Vital Signs 03/18/24 07:44 04/22/24 15:07 Height 5 ft 9 in BP 154/82 H Blood Pressure Location Lt brachial Position Sitting Respiration 16 Pulse 62 Pulse Source Monitor Temp 98.6 F Temp Source Temporal Pulse Oximetry (%) 98 Oxygen Delivery Method room air Intake Visit Reasons: 4 W FU Is patient in pain?: Yes Allergies hydromorphone HCl (From Dilaudid) Allergy (Severe, Verified 03/25/24 10:18) nausea, confusion Have you fallen in the past year?: Yes PFSH Medical History (Updated 03/25/24 @ 14:05 by HELEN Nash) Thyroid disease BiPAP (biphasic positive airway pressure) dependence High cholesterol Back pain History of hiatal hernia Gastric reflux Hypertension History of transesophageal echocardiography (CHIKA) Blepharitis of left lower eyelid Chalazion left lower eyelid Elevated troponin Left shoulder pain Coronary artery disease Wears glasses Cancer Sleep apnea Former smoker Leg cramps History of stress test History of echocardiogram Cardiology follow-up encounter History of hepatitis C Rheumatoid arthritis Hiatal hernia Myasthenia gravis Disc degeneration, lumbar Osteoarthritis of left hip COVID-19 virus detected (08/03/21) Hiatal hernia Hypoxemia Obstructive sleep apnea Nonrheumatic aortic (valve) stenosis Elevated troponin Nonobstructive atherosclerosis of coronary artery Essential (primary) hypertension Bradycardia with 41-50 beats per minute Prostate cancer Knee pain Hay fever Fatigue Shoulder pain Arthritis Hypogonadism in male Dyslipidemia Lower GI bleed Colonic polyp Morbid obesity with BMI of 45.0-49.9, adult Surgical History History of colonoscopy History of cardiac catheterization History of hip replacement ( 2021) History of shoulder surgery History of transcatheter aortic valve replacement (TAVR) (11/26/20) History of lumbar surgery History of left heart catheterization (08/20/20) History of knee surgery History of carpal tunnel release History of back surgery History of elbow surgery History of cataract surgery H/O laminectomy History of appendectomy H/O total knee replacement Family History Mother Skin cancer Social History household members: spouse current occupational status: employed Smoking Status: Former smoker alcohol intake: never HPI HPI HPI: CHRISTOPHER SILVA, is a 68 M who presents to the office today for 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 He is following with Dr. Lee at the wound center for this. The sutures remain intact, he reports that Dr. Lee attempted to remove 1 today. There is mild dehiscence so the rest were left in place. Dressings were not removed in the office today however he did have pictures from his dressing change at the wound center yesterday, skin edges appear viable. He denies any new claudication, rest pain, discoloration. ROS General General: Yes weight change and fatigue; No appetite, colon cancer, breast cancer or weakness HEENT HEENT: Yes eye surgery; No difficulty swallowing, eye injury, swollen glands or hoarseness Endo Endocrine: No thyroid disease, diabetes mellitus, thyroid cancer, Hair loss, heat intolerance or cold intolerance Skin Skin: No rash or changing moles Musc Musculoskeletal: Yes back problems, arthritis and rheumatoid arthritis; No gout or joint pain Cardio Cardiovascular: Yes murmur and high blood pressure; No pacemaker, heart disease, atrial fibrillation, heart attack, heart stent, palpitations, shortness of breat with exertion or chest pain Psych Psychiatric: No depression, anxiety or hearing voices Resp Respiratory: No shortness of breath, Yes sleep apnea, Yes cough, No COPD, No asthma, No emphysema and No wheezing Gastro Gastrointestinal: No abdominal pain, No nausea or vomiting, No diarrhea, No constipation, No blood in stool, Yes acid reflux, No hemorrhoids, No ulcers, No gallbladder problem and No black,tarry stools Nikhil Hematologic: No blood thinners, No blood disorders, No bleeding, No anemia and No blood clots Neuro Neurologic: No system reviewed and no additional complaints, except as documented, No as per HPI, No abnormal gait, No abnormal hearing, No abnormal movements, No abnormal speech, No behavioral changes, Yes burning sensations, No confusion, No convulsions, Yes disequili (more content not included)... Normal [facility] 04-08-2024 [facility] Telephone (NEAGCLM) CHRISTOPHER SILVA ([id number]) 1955 M Date Time Provider Department 04/08/24 TAYLOR STEEN I NEAGC During your visit today, we recorded the following information about you: Donovan Wray, RN 04/08/2024 11:10 AM Signed I contacted the patient and reminded him to bring disc with MRI to visit on Thursday with Dr. Go. Also requested that he went to [facility] facility to obtain lumbar x-rays prior to visit. He agreed to go to [facility] close by to his house. He was appreciative of the call. 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 - pregabalin (LYRICA) 100 mg capsule Take 100 mg by mouth three times daily. - levothyroxine (SYNTHROID) 50 mcg tablet Take 50 mcg by mouth daily before breakfast. - urea (CARMOL) 40 % crea Apply 1 application to affected area as needed. - methylPREDNISolone (MEDROL, MUKESH,) 4 mg Dose-Pack Take as directed - ciclopirox (LOPROX) 0.77 % cream Apply 1 application to affected area twice daily. - folic acid 800 mcg tablet Take 400 mcg by mouth once daily. - aspirin, enteric coated (ASPIRIN, ENTERIC COATED) 81 mg EC tablet Take 81 mg by mouth once daily. - Ibuprofen 200 mg cap Take by mouth. - lisinopril (ZESTRIL, PRINIVIL) 40 mg tablet Take 40 mg by mouth once daily. - oxyCODONE-acetaminophen 7.5-325 mg TbBO Take by mouth. - lisdexamfetamine (VYVANSE) 50 mg capsule Take 50 mg by mouth once daily. - TESTOSTERONE AND ESTRADIOL CYP (DEPO-TESTADIOL INTRAMUSC.) Inject intramuscularly. - metaxalone (SKELAXIN) 800 mg tablet Take 800 mg by mouth three times daily. - montelukast 10 mg tablet Take 10 mg by mouth daily at bedtime. - 5-Hydroxytryptophan (5-HTP) 100 mg cap Take by mouth. - FUROSEMIDE 40 MG TAB Take one(1) tablet two(2) times daily. - amlodipine besylate(NORVASC 10 MG TAB) Take one(1) tablet daily. - potassium chloride(KLOR-CON 20 MEQ ORAL PACKET) Take one(1) tablet daily. - omega-3 acid ethyl esters(LOVAZA 1 GRAM CAP) two tablets twice daily - niacin(NIASPAN 500 MG TAB) Take one(1) tablet daily. - aspirin(ADULT LOW DOSE ASPIRIN 81 MG TAB, DELAYED RELEASE) Take one(1) tablet daily. - B COMPLEX VITAMINS SYRUP 1ml per day Problem List As Of Date 04/08/2024 Noted Resolved Malignant Neoplasm of Prostate [C61] 07/19/2009 Bladder Neck Obstruction [N32.0] 07/19/2009 Calculus of Kidney [N20.0] 07/19/2009 Exostosis [M89.8X9] 03/24/2014 Pain in limb [M79.609] 03/24/2014 Tinea pedis of both feet [B35.3] 01/29/2016 OM (onychomycosis) [B35.1] 01/29/2016 Encounter Status:Closed by DONOVAN WRAY on 04/08/24 [facility] Foot min 3 Viewson 4 Foot min 3 Views [facility] Imaging Services [address] [place] [address] [id number] Foot min 3 Views MR#: [id number] Acct: [id number] Name: CHRISTOPHER SILVA Rep #: [id number] : 1955 M 68 From: Chay Myers MD PCP: Dr. Aury Schneider, DO Status: REG RCR Study: Foot min 3 Views Date of Exam: 04/06/24 Exam# [id number] Ordering Dr: Richie Nuno DPM :[id number] STUDY: X-RAY - LEFT FOOT CLINICAL: Male, 68 years old. Foot pain. TECHNIQUE: 3 view(s) of the foot. COMPARISON: January 30, 2024 FINDINGS: Stable osteopenia. Moderate arthrosis of the tibiotalar joint. Stable superior and inferior spurs. Moderate arthrosis of the subtalar joint unchanged Moderate arthrosis of the mid foot with pes planus deformity. Moderate arthrosis of the TMT joints. Moderate arthrosis of the MTP and IP joints. Fusion of the PIP joint of the second digit with resection of the distal phalanx and the distal aspect of the middle phalanx of the second digit. Small bony fragments projected laterally at the resection site of the second digit. Marked soft tissue swelling of the second toe. Hammertoe deformities. RAD/Foot min 3 Views IMPRESSION: Osteopenia with stable osteoarthritic changes. Postfusion changes at the PIP joint of the second digit with resection of the distal aspect of the middle and distal phalanges of the second digit with marked soft tissue swelling of the second digit. Electronically Signed: Chay Myers MD at 14:21 EDT , CC: YANI Nuno; Dr. Aury Schneider DO Stock Grader: Signed Normal [facility] 03-30-2024 [facility] Telephone (NEAGCLM) CHRISTOPHER SILVA ([id number]) 1955 M Date Time Provider Department 03/30/24 PAULA YIN NEAGCLM During your visit today, we recorded the following information about you: Shraddha Donaldson 03/30/2024 10:46 AM Signed Referral from [facility] for Neurosurgery, for lumbosacral stenosis , lumbar spondylosis and radiculopathy, no recent images in Epic. [facility] for patient to call office to be scheduled. Allergies As of Date: 03/30/2024 Noted Allergy Reaction DILAUDID (HYDROMORPHONE) 09/28/2015 11 - Vomiting Date Reviewed: 08/09/2018 Reviewed by: Linda Gary Ma - Fully Assessed Prescriptions as of 03/30/2024 - benazepril HCl (BENAZEPRIL ORAL) Take 40 mg by mouth once daily. - pregabalin (LYRICA) 100 mg capsule Take 100 mg by mouth three times daily. - levothyroxine (SYNTHROID) 50 mcg tablet Take 50 mcg by mouth daily before breakfast. - urea (CARMOL) 40 % crea Apply 1 application to affected area as needed. - methylPREDNISolone (MEDROL, MUKESH,) 4 mg Dose-Pack Take as directed - ciclopirox (LOPROX) 0.77 % cream Apply 1 application to affected area twice daily. - folic acid 800 mcg tablet Take 400 mcg by mouth once daily. - aspirin, enteric coated (ASPIRIN, ENTERIC COATED) 81 mg EC tablet Take 81 mg by mouth once daily. - Ibuprofen 200 mg cap Take by mouth. - lisinopril (ZESTRIL, PRINIVIL) 40 mg tablet Take 40 mg by mouth once daily. - oxyCODONE-acetaminophen 7.5-325 mg TbBO Take by mouth. - lisdexamfetamine (VYVANSE) 50 mg capsule Take 50 mg by mouth once daily. - TESTOSTERONE AND ESTRADIOL CYP (DEPO-TESTADIOL INTRAMUSC.) Inject intramuscularly. - metaxalone (SKELAXIN) 800 mg tablet Take 800 mg by mouth three times daily. - montelukast 10 mg tablet Take 10 mg by mouth daily at bedtime. - 5-Hydroxytryptophan (5-HTP) 100 mg cap Take by mouth. - FUROSEMIDE 40 MG TAB Take one(1) tablet two(2) times daily. - amlodipine besylate(NORVASC 10 MG TAB) Take one(1) tablet daily. - potassium chloride(KLOR-CON 20 MEQ ORAL PACKET) Take one(1) tablet daily. - omega-3 acid ethyl esters(LOVAZA 1 GRAM CAP) two tablets twice daily - niacin(NIASPAN 500 MG TAB) Take one(1) tablet daily. - aspirin(ADULT LOW DOSE ASPIRIN 81 MG TAB, DELAYED RELEASE) Take one(1) tablet daily. - B COMPLEX VITAMINS SYRUP 1ml per day Problem List As Of Date 03/30/2024 Noted Resolved Malignant Neoplasm of Prostate [C61] 07/19/2009 Bladder Neck Obstruction [N32.0] 07/19/2009 Calculus of Kidney [N20.0] 07/19/2009 Exostosis [M89.8X9] 03/24/2014 Pain in limb [M79.609] 03/24/2014 Tinea pedis of both feet [B35.3] 01/29/2016 OM (onychomycosis) [B35.1] 01/29/2016 Encounter Status:Closed by SHRADDHA DONALDSON on 03/30/24 [facility] MR/BMS.BVSon 03-25-2024 MR/BMS.BVS [facility] Vascular Surgery [address] [place] [address] OFFICE VISIT Date of Service: 03/25/24 MR#: [id number] Acct: [id number] Name: CHRISTOPHER SILVA Rep #: [id number] : 1955 Provider: HELEN Nash Age/Sex: 68/M Location: BMS.BVS Status: Signed Intake Vital Signs 02/20/24 11:33 03/18/24 07:44 03/25/24 10:15 Height 5 ft 9 in 5 ft 9 in Weight: 304 lb BP 131/81 H Blood Pressure Location Lt brachial Position Sitting Respiration 16 Pulse 68 Pulse Source Monitor Temp 98 F Temp Source Temporal Pulse Oximetry (%) 95 Oxygen Delivery Method room air Intake Visit Reasons: ARTERIAL FLOW Chief Complaint: establish care Is patient in pain?: Yes Allergies hydromorphone HCl (From Dilaudid) Allergy (Severe, Verified 03/25/24 10:18) nausea, confusion Medications ???Medication ???Instructions ???Recorded ???Confirmed ???Type furosemide 40 mg tablet 40 mg PO DAILY diuretic/water pill 02/14/15 03/25/24 History niacin 500 mg tablet 500 mg PO QHS supplement 02/14/15 03/25/24 History omega-3 acid ethyl esters 1 gram 2 gm PO DAILY supplement 02/14/15 03/25/24 History capsule potassium chloride 20 mEq 20 meq PO DAILY supplement 02/14/15 03/25/24 History tablet,extended release(part/cryst) testosterone cypionate 100 mg/mL 1 ml IM Q14D hormone 02/14/15 03/25/24 History intramuscular oil folic acid 800 mcg tablet 0.8 mg PO DAILY supplement 03/09/17 03/25/24 History benazepril 40 mg tablet 40 mg PO DAILY blood pressure 07/12/19 03/25/24 History ergocalciferol (vitamin D2) 1,250 50,000 unit PO Q7D supplement 08/19/20 03/25/24 History mcg (50,000 unit) capsule pregabalin 100 mg capsule 100 mg PO TID pain 01/25/21 03/25/24 History sildenafil 100 mg tablet 100 mg PO DAILY PRN Erectile 11/04/21 03/25/24 History Dysfunction calcium 600 mg capsule 1,200 mg PO DAILY supplement 06/26/22 03/25/24 History aspirin 81 mg tablet,delayed 81 mg PO DAILY 12/03/22 03/25/24 History release vitamin O21-vlprpxt B1 5.5 mg-12.5 1 ml PO BID 12/03/22 03/25/24 History mcg/5 mL oral liquid acetaminophen 500 mg tablet 1,000 mg PO Q8 PRN pain 12/04/22 03/25/24 History ascorbic acid (vitamin C) 1,000 mg 1 g PO DAILY 05/12/23 03/25/24 History capsule levothyroxine 50 mcg tablet 50 mcg PO DAILY 05/12/23 03/25/24 History diclofenac sodium 1 % topical gel 2 g topical ONCE PRN pain 09/18/23 03/25/24 History (Voltaren Arthritis Pain) doxycycline hyclate 100 mg capsule 100 mg PO BID 2 weeks #28 caps 02/01/24 03/25/24 Rx lisdexamfetamine 60 mg capsule 60 mg PO DAILY 03/15/24 03/25/24 History calcium carbonate 500 mg-vitamin 1 tab PO DAILY 90 days #90 tabs 03/18/24 03/25/24 Rx D3 15 mcg (600 unit) tablet (Os-Andrew 500 + D3) cyclobenzaprine 10 mg tablet 10 mg PO TID muscle spasm 7 days 03/18/24 03/25/24 Rx #21 tabs docusate sodium 100 mg capsule 100 mg PO DAILY 10 days #10 caps 03/18/24 03/25/24 Rx (Colace) oxycodone-acetaminophen 5 mg-325 1 tab PO Q6H pain 7 days #28 tabs 03/18/24 03/25/24 Rx mg tablet (Endocet) Have you fallen in the past year?: No PFSH Medical History (Updated 03/25/24 @ 14:05 by HELEN Nash) Thyroid disease BiPAP (biphasic positive airway pressure) dependence High cholesterol Back pain History of hiatal hernia Gastric reflux Hypertension History of transesophageal echocardiography (CHIKA) Blepharitis of left lower eyelid Chalazion left lower eyelid Elevated troponin Left shoulder pain Coronary artery disease Wears glasses Cancer Sleep apnea Former smoker Leg cramps History of stress test History of echocardiogram Cardiology follow-up encounter History of hepatitis C Rheumatoid arthritis Hiatal hernia Myasthenia gravis Disc degeneration, lumbar Osteoarthritis of left hip COVID-19 virus detected (08/03/21) Hiatal hernia Hypoxemia Obstructive sleep apnea Nonrheumatic aortic (valve) stenosis Elevated troponin Nonobstructive atherosclerosis of coronary artery Essential (primary) hypertension Bradycardia with 41-50 beats per minute Prostate cancer Knee pain Hay fever Fatigue Shoulder pain Arthritis Hypogonadism in male Dyslipidemia Lower GI bleed Colonic polyp Morbid obesity with BMI of 45.0-49.9, adult Surgical History History of colonoscopy History of cardiac catheterization History of hip replacement ( 2021) History of shoulder surgery History of transcatheter aortic valve replacement (TAVR) (11/26/20) History of lumbar surgery History of left heart catheterization (08/20/20) History of knee surgery History of carpal tunnel release History of back surgery History of elbow surgery History of cataract surgery (more content not included)... Normal [facility] Culture, Anaerobic Any Sourc caryl 03-23-2024 CUAN COLLECTEDINOR- INCIS IONAL BONE CORTEX L 2ND DISTAL No growth in 5 days. Normal [facility] Comment on above: Performed By: #### M 300.3000, M600.2000, M100.2000, M600.2200, M300.2000, M100.3000, M100.4001 ####[facility] [id number] [place], [place], [id number] Wound Cultureon 03-19-2024 WC COLLECTEDINOR- INCIS IONAL BONE CORTEX L 2ND DISTAL No growth aerobically. Normal [facility] Comment on above: Performed By: #### M 300.3000, M600.2000, M100.2000, M600.2200, M300.2000, M100.3000, M100.4001 ####[facility] [address] [place], [place], [address] Bedside Glucoseon 03-18-2024 FINGERSTICK GLU 102 mg/dL Normal 74-106 [facility] Comment on above: Result Comment: SUSI BURGESS OF PATIENT CARE PER NURSING PROTOCOL Performed By: #### L 501.080 ####[facility] [address] [place], [place], [address] Decalcification bone/plaqueo n 03-18-2024 Decalcification bone/plaque -------- Patient Age/Sex Location Account Attending Physician -------- CHRISTOPHER SILVA 68/M [facility] [id number]. Richie Nuno DPM -------- Specimen: [id number] Received: 03/18/24 Status: MAR Vick Num: [id number] Spec Type: Bone Subm Dr: Dr. Richie Nuno, DPM HEADER OPERATION: Left foot second digit proximal interphalangeal joint PRE-OP DIAGNOSIS: Hammer toes, left foot TISSUE SUBMITTED: Incisional bone cortex left 2nd distal phalanx -------- MICROSCOPIC DIAGNOSIS Bone cortex left distal phalanx, incisional core biopsy: A piece of bone with reactive changes. Negative for acute osteomyelitis. See comment. / 03/23/2024 COMMENT Clinical correlation and appropriate follow up are necessary. MICROSCOPIC DESCRIPTION Slides are reviewed. GROSS DESCRIPTION Received in fixative is one container labeled with the patient's name and designated Incisional bone cortex left distal phalynx. The specimen consists of a piece of bone measuring 1.0 x 0.5 x 0.2cm. The entire specimen is submitted in one cassette after decalcification. 03/21/2024 TC:5 CPT:39358,84420 -------- Patient Age/Sex Location Account Attending Physician -------- CHRISTOPHER SILVA 68/[place] [facility] [id number]. Richie Nuno DPM -------- Signed (signature on file) Dr. Dann Fink MD 03/23/24 1318 -------- Normal [facility] Comment on above: Performed By: #### P DEC ####[facility] [address] [facility]. [place], [place], [address] Foot 2 Viewson 03-18-2024 Foot 2 Views [facility] Imaging Services [address] [place], [place] [address] Foot 2 Views MR#: [id number] Acct: [id number] Name: CHRISTOPHER SILVA Rep #: [id number] : 1955 M 68 From: Jillian cole MD PCP: Dr. Aury Schneider, DO Status: [facility] Study: Foot 2 Views Date of Exam: 03/18/24 Exam# [id number] Ordering Dr: Richie Nuno DPM :[id number] HISTORY: PAIN. TECHNIQUE: Left toes 4 spot images. COMPARISON: XR 01/30/2024. FINDINGS: OSSEOUS STRUCTURES: Surgical instruments overlying the second ray with fusion hardware placed at the proximal interphalangeal joint and amputation of the distal phalanx noted. RAD/Foot 2 Views IMPRESSION: Image guidance for left second toe interphalangeal arthrodesis. Electronically Signed: Jillian Sandoval MD at 8:19 EDT , CC: DPDuglas Nuno; Dr. Aury Schneider, Stock Grader: Signed Normal [facility] Gram Stainon 03-18-2024 GS COLLECTEDINOR- INCIS IONAL BONE CORTEX L 2ND DISTAL Gram Stain No organisms seen No cells seen Normal [facility] Comment on above: Performed By: #### M 300.3000, M600.2000, M100.2000, M600.2200, M300.2000, M100.3000, M100.4001 ####[facility] [address] [facility] [place], [address] MR/POSTOP.ANEon 03-18-2024 MR/POSTOP.[facility] Medical Records Department [address] [place] [address] Anesthesia Postop Eval I 03/18/24 1141 MR#: [id number] Acct: [id number] Name: CHRISTOPHER SILVA Rep #: [id number] : 1955 68 From: Jesse Freedman PCP: Dr. Aury Schneider, DO Status:REG SDC Y Race: C Location: [place] [address] Anesthesia: Postop Eval I Current Vital Signs Temperature: 97.5 F Pulse Rate: 76 Blood Pressure: 129/76 Respiratory Rate: 16 Pulse Ox: 96 Oxygen Delivery Method: Room Air Assessment Airway patent: Yes Spontaneous unlabored respirations: Yes Mental status: Calm nausea: No Vomiting: No Anesthesia Complication: No Fluid Hydration Crystalloid volume administer (ml): 1,100 Total IV fluid infused: 1,100 Progress Note Anesthesia document: Postop Eval 1 completed: Yes 03/18/24 1142 Date Jesse Gleason Signature: Date CC: Signed Normal [facility] MR/SWJBAINY2qi 03-18-2024 MR/POSTOPAN2 [facility] Medical Records Department [address] [place] [address] Anesthesia Postop Eval II 03/18/24 1546 MR#: [id number] Acct: [id number] Name: CHRISTOPHER SILVA Rep #: [id number] : 1955 68 From: Jaun Wang MD PCP: Dr. Aury Schneider, DO Status:[facility] Y Race: C [place] [facility] [place]esthesia Postop Eval I Sum Postop Eval Completion status Anesthesia document: Postop Eval 1 completed: Yes Anesthesia Postop Eval I Summary Anesthesia Postop Eval I Summary: Anesthesia Postop Eval I: Assessment Summary Airway patent Yes 03/18/24 11:42 IT PROGRAMMER ANALYST.MDOT Spontaneous unlabored Yes 03/18/24 11:42 IT PROGRAMMER ANALYST.MDOT respirations Mental status Calm 03/18/24 11:42 IT PROGRAMMER ANALYST.MDOT nausea No 03/18/24 11:42 IT PROGRAMMER ANALYST.MDOT Vomiting No 03/18/24 11:42 IT PROGRAMMER ANALYST.MDOT Anesthesia Postop Eval I: Fluid Summary Crystalloid volume administer 1,100 03/18/24 11:42 IT PROGRAMMER ANALYST.MDOT (ml) Colloids volume administered ( ml) Blood Product volume administered (ml) Total IV fluid infused 1,100 03/18/24 11:42 IT PROGRAMMER ANALYST.MDOT Anesthesia Postop Eval I: Summary Notes Anesthesia Complication No 03/18/24 11:42 IT PROGRAMMER ANALYST.MDOT Anesthesia Complication Comment: Post-operative progress note Anesthesia: Postop Eval II Evaluation Mental status: Awake and Calm Pain Level: 1 nausea: No Vomiting: No Complications Anesthesia Complication: No 03/18/24 1546 Date Jaun Gleason Signature: Date CC: Signed Normal [facility] MRSA/SAID NASAL SCREENon MRSA+SAID SCRN Reason for Exam: PRE OP MRSA MRSA Negative S. AUREUS S. aureus Negative Normal [facility] Comment on above: Performed By: #### M 100.651, L501.5200 #### [facility] Laboratory [address] [facility] [place], [address] Operative Reporton Operative Report [facility] Medical Records Department [address] [place] [address] Operative Report 03/18/24 0855 MR#: [id number] Acct: [id number] Name: CHRISTOPHER SILVA Rep #: [id number] : 1955 68 From: Richie Nuno DPM PCP: Dr. Aury Schneider, DO Status:[facility] Location[place] [facility] [place] Associated Problem List Diagnoses (1) Other hammer toe(s) (acquired), left foot: (2) Other specified peripheral vascular diseases: (3) Other acute osteomyelitis, left ankle and foot: (4) Hammer toe of left foot: (5) Contracture, left foot: (6) Osteomyelitis of second toe of right foot: Report of Operation Date of Procedure: 03/18/24 Pre-Operative Diagnosis: 1. Hammertoe, second digit, left foot 2. Hammertoe, third digit, left foot 3. Full-thickness wound, distal tuft, second digit, left foot 4. Osteomyelitis, distal phalanx, second digit, left foot 5. Contracture of foot, left foot 6. Peripheral vascular disease, left lower extremity Post-Operative Diagnosis: Same as preoperative diagnosis Surgery/Procedure Performed:: 1. Open flexor tenotomy, third digit, left foot 2. Percutaneous capsulotomy, third digit, left foot 3. Incision bone cortex, distal phalanx, second digit, left foot 4. Advancement flap closure, second digit, left foot 5. Second digit PIPJ arthrodesis, left foot 6. Open flexor tenotomy, second digit, left foot Description of Surgical Findings:: 1. Evidence of periosteal reaction appreciated distal phalanx, second digit, left foot 2. Evidence of calcified flexor tendons, second digit Surgeon: Richie Nuno looper fixer: Mar Price Type of Anesthesia: General and Local Anesthesiologist: Jaun Wang Special Medications: Per anesthesia Specimen's removed: 1. Distal phalanx, second digit, left foot, half sent to pathology and the other half sent to microbiology for culture and sensitivity Drains: None Estimated Blood Loss (mL): 20 mL Fluids Replaced: Per anesthesia Description of Procedure: Indications For Operation: Mr. Ashby is a 68-year-old male who was admitted to [facility] for elective left foot surgery secondary to osteomyelitis diagnosed on plain film radiograph. Patient was initially placed on my schedule with concern of a distal toe wound to the left foot second digit. After plain film radiographs there showed evidence of destruction of bone cortex to the distal phalanx concerning for osteomyelitis. The patient went under 2 rounds of oral antibiotics but still had evidence of delayed healing to the distal tuft of the second digit where he had a full-thickness wound with positive probe to bone. Patient also underwent noninvasive vascular studies and will be following up with vascular surgery for consultation and evaluation as well as for preventative medicine if the patient has delayed healing secondary to the bone infection and surgical intervention to the left foot. Surgical consultation was carried out the wound care center with chart reviewed consent signed. Patient understands all risks moving forward with elective surgery to the left foot. Due to bone infection and contracture of the left foot it has been deemed necessary at this time to take the patient to the operating room to perform the above procedure to help remove the infected portion of the bone from his second digit and reconstruct his lesser second and third digit to prevent any further breakdown of soft tissue and relieve his constant pain. The nature of the problem, anticipated procedures, postop recovery/convalences and risk/complications include but not limited to infection, wound healing complications, digital amputation, hypertrophic scarring, numbness, tingling, chronic pain, CRPS, over and under correction, recurrence of deformity, DVT and or PE and the need for further surgery have been discussed in great detail with the patient. All questions have been answered to the patient's satisfaction. There are no guarantees given as to the outcome of the procedure. Description of Procedure: Under mild sedation, the patient was brought into the operating room and placed on the operating table in supine position. Once the patient was under general anesthesia with regional mask airway, the left lower extremity was blocked using approximately 30 cc 0.5% Marcaine plain. Next, a well- padded thigh tourniquet was applied to the left lower extremity. Next, the left lower extremity was prepped and draped in normal aseptic manner. Next, a timeout was then undertaken verifying the correct patient, extremity, visibility of preoperative markings, availability of the equipment. Next using a 6 inch Esmarch the left lower extremity was exsanguinated elevated to 60 degrees for approximately 1 minute and then the left thigh tourniquet was inflated to 275 mmHg. Procedure #1: Open flexor tenotomy, third digit, left foot (CPT: 92346 (more content not included)... Normal [facility] Magnesiumon 03-17-2024 Magnesium [Mass/Vol] 2.3 mg/dL Normal 1.6-2.6 [facility] Comment on above: Performed By: #### M 100.651, L501.5200 #### [facility] [address] [place], [address] TFTESTon 03-12-2024 Free Testost Direct 1.6 pg/mL Low 6.6-18.1 [facility] ([place]) Comment on above: Result Comment: Perf ormed At: [facility] [address] [id number] Tien Fabian MD Ph:[phone] Performed At: [facility] [address] [place], [place] [id number] Nicolas Yanez PhD Ph:[phone] Performed By: #### T SH, ADIFF, ANEU, FT4, 834533, CBC, GFR, LIPID, CMP #### [address] 23 ng/dL Low 264-916 [facility] ([place]) Comment on above: Result Comment: Adul t male reference interval is based on a population of healthy nonobese males (BMI <30) between 19 and 39 years old. linda Castillo.al. JCEM 2017,102;6043-2839. PMID: [id number]. Performed By: #### T SH, ADIFF, ANEU, FT4, 169765, CBC, GFR, LIPID, CMP #### [address] [address] .Auto Diffon 03-08-2024 Basophil, Absolute 0.1 10 3/mcL Normal 0.0-0.3 [facility] Comment on above: Performed By: #### T SH, ADIFF, ANEU, FT4, 983196, CBC, GFR, LIPID, CMP #### [place] [address] Basophils/100 WBC (Bld) 1.2 % Normal 0.0-2.5 [facility] ([place]) Comment on above: Performed By: #### T SH, ADIFF, ANEU, FT4, 335713, CBC, GFR, LIPID, CMP #### [place] [address] Eosinophil, Absolute 0.2 10 3/mcL Normal 0.0-0.7 [facility] ([place]) Comment on above: Performed By: #### T SH, ADIFF, ANEU, FT4, 619758, CBC, GFR, LIPID, CMP #### [address] [address] Eosinophils/100 WBC (Bld) 4.1 % Normal 0.0-6.0 [facility] ([place]) Comment on above: Performed By: #### T SH, ADIFF, ANEU, FT4, 612070, CBC, GFR, LIPID, CMP #### [address] [address] Lymphocyte, Absolute 1.3 10 3/mcL Normal 0.9-4.3 [facility] ([place]) Comment on above: Performed By: #### T SH, ADIFF, ANEU, FT4, 313591, CBC, GFR, LIPID, CMP #### [address] [address] Lymphocytes/100 WBC (Bld) 22.5 % Normal 20.0-40.0 [facility] ([place] Comment on above: Performed By: #### T SH, ADIFF, ANEU, FT4, 933339, CBC, GFR, LIPID, CMP #### [address] [address] Monocyte, Absolute 0.4 10 3/mcL Normal 0.1-1.4 [facility] [place] Comment on above: Performed By: #### T SH, ADIFF, ANEU, FT4, 815465, CBC, GFR, LIPID, CMP #### [address] [address] Monocytes/100 WBC (Bld) 6.2 % Normal 2.0-13.0 [facility] ([place] Comment on above: Performed By: #### T SH, ADIFF, ANEU, FT4, 414260, CBC, GFR, LIPID, CMP #### [address] [address] Neutrophils/100 WBC (Bld) 66.0 % Normal 50.0-75.0 [facility] ([place] Comment on above: Performed By: #### T SH, ADIFF, ANEU, FT4, 060728, CBC, GFR, LIPID, CMP #### [address] [address] .GFRon 03-08-2024 GFR Non- >60 Normal [facility] ([place]) Comment on above: Result Comment: GFR Population mean for , Non- Americans Ages 20-29 = 116 mL/min/1.73 sq.m. Ages 30-39 = 107 mL/min/1.73 sq.m. Ages 40-49 = 99 mL/min/1.73 sq.m. Ages 50-59 = 93 mL/min/1.73 sq.m. Ages 60-69 = 85 mL/min/1.73 sq.m. Ages 70+ = 75 mL/min/1.73 sq.m. Chronic Kidney Disease: Less than 60 mL/min/1.73 square meters End Stage Renal Disease: Less than 15 mL/min/1.73 square meters Performed By: #### T SH, ADIFF, ANEU, FT4, 416228, CBC, GFR, LIPID, CMP #### [address] [address] GFR >60 Normal [facility] [place] Comment on above: Result Comment: GFR Population mean for , Non- Americans Ages 20-29 = 116 mL/min/1.73 sq.m. Ages 30-39 = 107 mL/min/1.73 sq.m. Ages 40-49 = 99 mL/min/1.73 sq.m. Ages 50-59 = 93 mL/min/1.73 sq.m. Ages 60-69 = 85 mL/min/1.73 sq.m. Ages 70+ = 75 mL/min/1.73 sq.m. Chronic Kidney Disease: Less than 60 mL/min/1.73 square meters End Stage Renal Disease: Less than 15 mL/min/1.73 square meters Performed By: #### T SH, ADIFF, ANEU, FT4, 998484, CBC, GFR, LIPID, CMP #### [address] [address] .NEUABSon 03-08-2024 Neutrophil, Absolute 3.8 10 3/mcL Normal 2.3-8.1 [facility] ([place]) Comment on above: Performed By: #### T BRYSON, ADIFF, ANEU, FT4, [id number], CBC, GFR, LIPID, CMP #### [address] [address] CBCon 03-08-2024 Erythrocyte distribution width (RBC) [Ratio] 13.6 % Normal 11.5-15.5 [facility] ([place]) Comment on above: Performed By: #### T SH, ADIFF, ANEU, FT4, 544960, CBC, GFR, LIPID, CMP #### [address] [address] Hematocrit (Bld) [Volume fraction] 37.5 % Low 40.0-52.0 [facility] ([place]) Comment on above: Performed By: #### T SH, ADIFF, ANEU, FT4, 643008, CBC, GFR, LIPID, CMP #### [place] [address] Hgb 12.9 G/dL Low 13.0-17.5 [facility] ([place] Comment on above: Performed By: #### T SH, ADIFF, ANEU, FT4, 975948, CBC, GFR, LIPID, CMP #### [place] [address] MCH (RBC) [Entitic mass] 33.0 pg Normal 27.0-33.0 [facility] ([place] Comment on above: Performed By: #### T SH, ADIFF, ANEU, FT4, 535759, CBC, GFR, LIPID, CMP #### [place] [address] MCHC 34.5 G/dL Normal 32.0-36.0 [facility] ([place] Comment on above: Performed By: #### T SH, ADIFF, ANEU, FT4, 377934, CBC, GFR, LIPID, CMP #### [place] [address] MCV (RBC) [Entitic vol] 95.7 fL Normal 81.0-100.0 [facility] ([place] Comment on above: Performed By: #### T SH, ADIFF, ANEU, FT4, 625990, CBC, GFR, LIPID, CMP #### [place] [address] Platelet 243 10 3/mcL Normal 150-450 [facility] ([place]) Comment on above: Performed By: #### T SH, ADIFF, ANEU, FT4, 652138, CBC, GFR, LIPID, CMP #### [place] [address] Platelet mean volume (Bld) [Entitic vol] 9.1 fL Normal 6.4-10.5 [facility] ([place] Comment on above: Performed By: #### T SH, ADIFF, ANEU, FT4, 617763, CBC, GFR, LIPID, CMP #### [place] [address] RBC 3.92 10 6/mcL Low 4.50-6.00 [facility] ([place] Comment on above: Performed By: #### T SH, ADIFF, ANEU, FT4, 379599, CBC, GFR, LIPID, CMP #### [place] [address] WBC 5.8 10 3/mcL Normal 4.5-10.8 [facility] ([place] Comment on above: Performed By: #### T SH, ADIFF, ANEU, FT4, 688638, CBC, GFR, LIPID, CMP #### [address] [address] CMPon 03-08-2024 Albumin Level 3.3 G/dL Normal 3.2-4.8 [facility] ([place] Comment on above: Performed By: #### T SH, ADIFF, ANEU, FT4, 088184, CBC, GFR, LIPID, CMP #### [place] [address] Albumin/Globulin [Mass ratio] 1.0 {ratio} Normal 0.9-1.6 [facility] ([place] Comment on above: Performed By: #### T SH, ADIFF, ANEU, FT4, 532314, CBC, GFR, LIPID, CMP #### [place] [id number] ALP [Catalytic activity/Vol] 98 U/L Normal 38-126 [facility] ([place] Comment on above: Performed By: #### T SH, ADIFF, ANEU, FT4, 738558, CBC, GFR, LIPID, CMP #### [place] [id number] ALT [Catalytic activity/Vol] 14 U/L Normal 12-55 [facility] ([place] Comment on above: Performed By: #### T SH, ADIFF, ANEU, FT4, 740156, CBC, GFR, LIPID, CMP #### [place] [id number] AST [Catalytic activity/Vol] 17 U/L Normal 8-34 [facility] ([place] Comment on above: Performed By: #### T SH, ADIFF, ANEU, FT4, 346696, CBC, GFR, LIPID, CMP #### [address] [address] Bili Total 0.50 mg/dL Normal 0.20-1.20 [facility] ([place]) Comment on above: Result Comment: Use of this assay is not recommended for patients undergoing treatment with eltrombopag due to the potential for falsely elevated results. Performed By: #### T SH, ADIFF, ANEU, FT4, 407986, CBC, GFR, LIPID, CMP #### [place] [address] BUN/Creatinine Ratio 24.1 ratio High 10.0-22.0 [facility] Comment on above: Performed By: #### T SH, ADIFF, ANEU, FT4, 402949, CBC, GFR, LIPID, CMP #### [place] [address] Calcium [Mass/Vol] 9.2 mg/dL Normal 8.7-10.4 [facility] ([place]) Comment on above: Performed By: #### T SH, ADIFF, ANEU, FT4, 397884, CBC, GFR, LIPID, CMP #### [address] [address] Chloride [Moles/Vol] 106 mmol/L Normal 98-110 [facility] [place] Comment on above: Performed By: #### T SH, ADIFF, ANEU, FT4, 146793, CBC, GFR, LIPID, CMP #### [address] [address] CO2 [Moles/Vol] 32 mmol/L Normal 22-32 [facility] ([place] Comment on above: Performed By: #### T SH, ADIFF, ANEU, FT4, 319236, CBC, GFR, LIPID, CMP #### [address] [address] Creatinine [Mass/Vol] 0.79 mg/dL Normal 0.60-1.40 [facility] ([place] Comment on above: Performed By: #### T SH, ADIFF, ANEU, FT4, 080862, CBC, GFR, LIPID, CMP #### [address] [address] Electrolyte Balance 4.0 mEq/L Normal 4.0-15.0 [facility] ([place]) Comment on above: Performed By: #### T SH, ADIFF, ANEU, FT4, 539404, CBC, GFR, LIPID, CMP #### [address] [address] Globulin 3.3 G/dL Normal 1.5-3.8 [facility] ([place] Comment on above: Performed By: #### T SH, ADIFF, ANEU, FT4, 672141, CBC, GFR, LIPID, CMP #### [address] [address] Glucose [Mass/Vol] 103 mg/dL Normal 82-115 [facility] ([place]) Comment on above: Performed By: #### T SH, ADIFF, ANEU, FT4, 506885, CBC, GFR, LIPID, CMP #### [address] [address] Potassium [Moles/Vol] 4.2 mmol/L Normal 3.5-5.0 [facility] ([place] Comment on above: Performed By: #### T SH, ADIFF, ANEU, FT4, 285059, CBC, GFR, LIPID, CMP #### [place] [id number] Sodium [Moles/Vol] 142 mmol/L Normal 136-145 [facility] ([place]) Comment on above: Performed By: #### T SH, ADIFF, ANEU, FT4, 082375, CBC, GFR, LIPID, CMP #### [address] [address] Total Protein 6.6 G/dL Normal 5.7-8.2 [facility] ([place]) Comment on above: Result Comment: No te - New Reference Range in effect 20 Performed By: #### T SH, ADIFF, ANEU, FT4, 026792, CBC, GFR, LIPID, CMP #### [place] [id number] Urea nitrogen [Mass/Vol] 19.0 mg/dL Normal 8.0-22.0 [facility] ([place] Comment on above: Performed By: #### T SH, ADIFF, ANEU, FT4, 428682, CBC, GFR, LIPID, CMP #### [address] [address] FT4on 03-08-2024 Free T4 [Mass/Vol] 1.12 ng/dL Normal 0.89-1.76 [facility] ([place]) Comment on above: Result Comment: No te - New Reference Range in effect 20 Performed By: #### T SH, ADIFF, ANEU, FT4, 875506, CBC, GFR, LIPID, CMP #### [address] [address] LIPIDon 03-08-2024 Cholesterol [Mass/Vol] 205 mg/dL High 50-199 [facility] ([place]) Comment on above: Result Comment: Chol esterol Reference Interval: Less than 200 Desirable 200-239 Borderline high risk 240 and above High risk Performed By: #### T SH, ADIFF, ANEU, FT4, 528260, CBC, GFR, LIPID, CMP #### [address] [address] Cholesterol in HDL [Mass/Vol] 35 mg/dL Low 40-59 [facility] ([place] Comment on above: Performed By: #### T SH, ADIFF, ANEU, FT4, 492651, CBC, GFR, LIPID, CMP #### [address] [address] Cholesterol in LDL [Mass/Vol] 144 mg/dL High 0-129 [facility] ([place] Comment on above: Performed By: #### T SH, ADIFF, ANEU, FT4, 182631, CBC, GFR, LIPID, CMP #### [address] [address] Triglyceride [Mass/Vol] 129 mg/dL Normal 3-149 [facility] ([place] Comment on above: Performed By: #### T SH, ADIFF, ANEU, FT4, 423162, CBC, GFR, LIPID, CMP #### [address] [place], [place] [address] TSHon 03-08-2024 TSH 1.499 mIU/mL Normal 0.550-4.780 [facility] ([place]) Comment on above: Result Comment: No te - New Reference Range in effect 20 Performed By: #### T SH, ADIFF, ANEU, FT4, 203341, CBC, GFR, LIPID, CMP #### [place] [address] [address] [place] [address] No Panel InformationOrdered By: Jose Trinh on 09-11-2023 Troponin I High Sensitivity 180 pg/mL 3.0-78.0 [facility] Comment on above: Critical Result(s) C alled at: 02:08:51 09/11/2023 by: Shana Sullivan to Sink. Results read back by same. Please Note: New Test Units and Gender Specific Reference Ranges. For more information see Policy Stat Procedure [place] High Sensitivity Troponin (TNIH) and attachments. Absolute lymphocyte countOrd ered By: Jose Trinh on 09-10-2023 Lymphocytes Auto (Unsp spec) [#/Vol] 1.97 10*3/uL 0.83-4.51 [facility] Activated partial thrombopla stin time (aPTT) in platelet poor plasma by coagulation aOrdered By: Jose Trinh on 09-10-2023 aPTT Coag (PPP) [Time] 40.7 s 24.1-36.2 [facility] Automated lymphocyte count a s percentage of total leukocytesOrdered By: Jose Trinh on 09-10-2023 Lymphocytes/100 WBC Auto (Unsp spec) 23.6 % 19-41 [facility] Basophil percentageOrdered B y: Jose Trinh on 09-10-2023 Basophils/100 WBC (Bld) 1.6 % 0-1 [facility] Bilirubin [Mass/Vol] 0.70 mg/dL 0.20-1.00 [facility] Comment on above: For patients on eltr ombopag therapy, use of Dimension [place] TBIL is not recommended. Chloride [Moles/Vol] 106 mmol/L 98-107 [facility] Eosinophils/100 WBC (Bld) 2.8 % 0-5 [facility] Glucose [Mass/Vol] 85 mg/dL 74-106 [facility] Hemoglobin (Bld) [Mass/Vol] 17.0 g/dL 13.0-16.5 [facility] Monocytes/100 WBC (Bld) 6.2 % 0-10 [facility] Neutrophils (Bld) [#/Vol] 5.5 10*3/uL 2.0-7.7 [facility] Neutrophils/100 WBC (Bld) 65.3 % 47-70 [facility] Potassium [Moles/Vol] 4.2 mmol/L 3.5-5.1 [facility] Protein [Mass/Vol] 7.7 g/dL 6.4-8.2 [facility] Sodium [Moles/Vol] 141 mmol/L 136-145 [facility] WBC (Bld) [#/Vol] 8.4 10*3/uL 4.4-11.0 [facility] Determination of erythrocyte mean corpuscular volume (MCV)Ordered By: Jose Trinh on 09-10-2023 MCV (RBC) [Entitic vol] 92.3 fL 80-94 [facility] Direct bilirubinOrdered By: Jose Trinh on 09-10-2023 Bilirubin.direct [Mass/Vol] 0.15 mg/dL 0.00-0.30 [facility] Erythrocyte distribution wid th ratioOrdered By: Jose Trinh on 09-10-2023 Erythrocyte distribution width (RBC) [Ratio] 13.5 % 11.6-14.6 [facility] Erythrocyte distribution wid th standard deviationOrdered By: Jose Trinh on 09-10-2023 Erythrocyte distribution width (RBC) [Entitic vol] 46.1 fL 35.1-43.9 [facility] Hematocrit Auto (Bld) [Volum e fraction]Ordered By: Jose Trinh on 09-10-2023 Hematocrit (Bld) [Volume fraction] 51.8 % 40-54 [facility] Immature granulocytes/100 WB C Auto (Bld)Ordered By: Jose Trinh on 09-10-2023 Immature granulocytes/100 WBC (Bld) 0.500 % 0.0-0.9 [facility] Comment on above: IG% - Immature Granu locytes (promyelocytes, myelocytes and metamyelocytes) > 1% indicates that a LEFT SHIFT is Present. Laboratory - Chemistry and C hemistry - challengeOrdered By: Jose Trinh on 09-10-2023 ALP [Catalytic activity/Vol] 87 U/L 45-117 [facility] ALT [Catalytic activity/Vol] 29 U/L 16-61 [facility] CO2 [Moles/Vol] 31.0 mmol/L 21.0-32.0 [facility] Globulin (S) [Mass/Vol] 3.9 g/dL 2.2-4.2 [facility] Lipase [Catalytic activity/Vol] 23 U/L 13-75 [facility] Comment on above: Please note:LIPASE r evised reference range effective 22. New Lipase methodology. Expected to produce lower values than the previous assay method. NEW Reference Range: 13 - 75 U/L Urea nitrogen/Creatinine [Mass ratio] 25.4 mg/mg 10-20 [facility] - CoagulationOrde red By: Jose Trinh on 09-10-2023 INR Coag (Bld) [Relative time] 1.1 {INR} [facility] PT Coag (PPP) [Time] 13.9 s 11.7-14.9 [facility] - Hematology and Cell countsOrdered By: Jose Trinh on 09-10-2023 MCH (RBC) [Entitic mass] 30.3 pg 27.0-32.0 [facility] MCHC (RBC) [Mass/Vol] 32.8 g/dL 32-36 [facility] Nucleated RBC/100 WBC (Bld) [Ratio] 0 % 0-5 [facility] Platelet mean volume (Bld) [Entitic vol] 10.5 fL 6.2-12.0 [facility] Platelets (Bld) [#/Vol] 276 10*3/uL 150-450 [facility] No Panel InformationOrdered By: Jose Trinh on 09-10-2023 D-Dimer Quantitative (PE/DVT) 0.85 FEU/ug/m 0.27-0.49 [facility] Comment on above: D-Dimer ELEVATED (>0 .49): Additional studies and clinicalassessments are indicated to conclude diagnosis of:Deep Vein Thrombosis (DVT) or Pulmonary Embolism (PE) Estimated Creatinine Clearance Calc 81.17 ml/min [facility] Estimated GFR (MDRD) Amer 79 mL/min >60 [facility] Comment on above: GFR Calc Estimated GFR (MDRD) Non-Af Amer 65 mL/min >60 [facility] Comment on above: Non- GFR Calc RBC Auto (Bld) [#/Vol]Ordere d By: Jose Trinh on 09-10-2023 RBC (Bld) [#/Vol] 5.61 10*6/uL 4.6-6.2 [facility] Serum or plasma calcium dougie urement (mass/volume)Ordered By: Jose Trinh on 09-10-2023 Calcium [Mass/Vol] 9.3 mg/dL 8.5-10.1 [facility] Serum or plasma creatinine m easurement (mass/volume)Ordered By: Jose Trinh on 09-10-2023 Creatinine [Mass/Vol] 1.18 mg/dL 0.70-1.30 [facility] Comment on above: The validity of the calculated GFR & GFRAA in patients over 70 years has not been determined. Clinical correlation is essential. Serum or plasma urea nitroge n measurement (mass/volume)Ordered By: Jose Trinh on 09-10-2023 Urea nitrogen [Mass/Vol] 30 mg/dL 7-18 [facility] Thin prep Papanicolaou smear with manual screeningOrdered By: Jose Trinh on 09-10-2023 Thin prep Papanicolaou smear with manual screening 3.8 g/dL 3.2-5.0 [facility] Thin prep Papanicolaou smear with manual screening 33 U/L 15-37 [facility] Thin prep Papanicolaou smear with manual screening 4 5-15 [facility] - Microbiology an d Antimicrobial susceptibilityon 08-24-2023 SARS-CoV-2 (COVID-19) RNA EVENS+probe Ql (Unsp spec) Detected [facility] No Panel Informationon 08-24 Influenza Types A,B Rapid (Clinic) Not detected [facility] TFTESTon 08-05-2023 Free Testost Direct 4.3 pg/mL Low 6.6-18.1 [facility] ([place]) Comment on above: Result Comment: Perf ormed At: [facility] [address] [id number] Tien Fabian MD Ph:[phone] Performed At: [facility] [address] [id number] Nicolas Yanez PhD Ph:[phone] Performed By: #### T SH, ADIFF, ANEU, FT4, 679189, CBC, GFR, LIPID, CMP #### [address] [address] Testosterone Lvl 293 ng/dL Normal 264-916 [facility] ([place]) Comment on above: Result Comment: Adul t male reference interval is based on a population of healthy nonobese males (BMI <30) between 19 and 39 years old. linda Castillo.al. JCEM 2017,102;8527-5167. PMID: [id number]. Performed By: #### T SH, ADIFF, ANEU, FT4, 395709, CBC, GFR, LIPID, CMP #### [address] [address] .Auto Diffon 07-27-2023 Basophil, Absolute 0.1 10 3/mcL Normal 0.0-0.3 [facility] Comment on above: Performed By: #### T SH, ADIFF, ANEU, FT4, 178364, CBC, GFR, LIPID, CMP #### [address] [address] Basophils/100 WBC (Bld) 1.8 % Normal 0.0-2.5 [facility] ([place]) Comment on above: Performed By: #### T SH, ADIFF, ANEU, FT4, 957190, CBC, GFR, LIPID, CMP #### [address] [address] Eosinophil, Absolute 0.3 10 3/mcL Normal 0.0-0.7 [facility] ([place]) Comment on above: Performed By: #### T SH, ADIFF, ANEU, FT4, 648833, CBC, GFR, LIPID, CMP #### [address] [address] Eosinophils/100 WBC (Bld) 7.1 % High 0.0-6.0 [facility] ([place]) Comment on above: Performed By: #### T SH, ADIFF, ANEU, FT4, 132994, CBC, GFR, LIPID, CMP #### [address] [address] Lymphocyte, Absolute 1.4 10 3/mcL Normal 0.9-4.3 [facility] ([place] Comment on above: Performed By: #### T SH, ADIFF, ANEU, FT4, 365870, CBC, GFR, LIPID, CMP #### [address] [address] Lymphocytes/100 WBC (Bld) 30.4 % Normal 20.0-40.0 [facility] ([place] Comment on above: Performed By: #### T SH, ADIFF, ANEU, FT4, 546138, CBC, GFR, LIPID, CMP #### [address] [address] Monocyte, Absolute 0.3 10 3/mcL Normal 0.1-1.4 [facility] Comment on above: Performed By: #### T SH, ADIFF, ANEU, FT4, 806576, CBC, GFR, LIPID, CMP #### [address] [address] Monocytes/100 WBC (Bld) 6.4 % Normal 2.0-13.0 [facility] ([place] Comment on above: Performed By: #### T SH, ADIFF, ANEU, FT4, 899119, CBC, GFR, LIPID, CMP #### [address] [address] Neutrophils/100 WBC (Bld) 54.3 % Normal 50.0-75.0 [facility] ([place] Comment on above: Performed By: #### T SH, ADIFF, ANEU, FT4, 439921, CBC, GFR, LIPID, CMP #### [address] [address] .GFRon 07-27-2023 GFR >60 [facility] Comment on above: Result Comment: GFR Population mean for , Non- Americans Ages 20-29 = 116 mL/min/1.73 sq.m. Ages 30-39 = 107 mL/min/1.73 sq.m. Ages 40-49 = 99 mL/min/1.73 sq.m. Ages 50-59 = 93 mL/min/1.73 sq.m. Ages 60-69 = 85 mL/min/1.73 sq.m. Ages 70+ = 75 mL/min/1.73 sq.m. Chronic Kidney Disease: Less than 60 mL/min/1.73 square meters End Stage Renal Disease: Less than 15 mL/min/1.73 square meters Performed By: #### T SH, ADIFF, ANEU, FT4, 431711, CBC, GFR, LIPID, CMP #### [address] [address] GFR Non- >60 Normal [facility] ([place]) Comment on above: Result Comment: GFR Population mean for , Non- Americans Ages 20-29 = 116 mL/min/1.73 sq.m. Ages 30-39 = 107 mL/min/1.73 sq.m. Ages 40-49 = 99 mL/min/1.73 sq.m. Ages 50-59 = 93 mL/min/1.73 sq.m. Ages 60-69 = 85 mL/min/1.73 sq.m. Ages 70+ = 75 mL/min/1.73 sq.m. Chronic Kidney Disease: Less than 60 mL/min/1.73 square meters End Stage Renal Disease: Less than 15 mL/min/1.73 square meters Performed By: #### T SH, ADIFF, ANEU, FT4, 284421, CBC, GFR, LIPID, CMP #### [address] [address] .NEUABSon 07-27-2023 Neutrophil, Absolute 2.5 10 3/mcL Normal 2.3-8.1 [facility] ([place]) Comment on above: Performed By: #### T SH, ADIFF, ANEU, FT4, 261397, CBC, GFR, LIPID, CMP #### [address] [address] CBCon 01-15-2024 Erythrocyte distribution width (RBC) [Ratio] 13.7 % Normal 11.5-15.5 [facility] ([place]) Comment on above: Performed By: #### 1 [address], GFR, ANEU, CMP, ADIFF, TSH, FT4, LIPID, CBC #### [place] [address] Hematocrit (Bld) [Volume fraction] 46.9 % Normal 40.0-52.0 [facility] ([place]) Comment on above: Performed By: #### 1 [address], GFR, ANEU, CMP, ADIFF, TSH, FT4, LIPID, CBC #### [place] [address] Hgb 15.8 G/dL Normal 13.0-17.5 [facility] ([place]) Comment on above: Performed By: #### 1 [id number], GFR, ANEU, CMP, ADIFF, TSH, FT4, LIPID, CBC #### [place] [address] MCH (RBC) [Entitic mass] 31.6 pg Normal 27.0-33.0 [facility] [place] ([place]) Comment on above: Performed By: #### 1 53045, GFR, ANEU, CMP, ADIFF, TSH, FT4, LIPID, CBC #### [place] [address] MCHC 33.6 G/dL Normal 32.0-36.0 [facility] [place] ([place]) Comment on above: Performed By: #### 1 [id number], GFR, ANEU, CMP, ADIFF, TSH, FT4, LIPID, CBC #### [place] [address] MCV (RBC) [Entitic vol] 93.9 fL Normal 81.0-100.0 [facility] [place] ([place]) Comment on above: Performed By: #### 1 [id number], GFR, ANEU, CMP, ADIFF, TSH, FT4, LIPID, CBC #### [place] [address] Platelet 249 10 3/mcL Normal 150-450 [facility] [place] ([place]) Comment on above: Performed By: #### 1 [id number], GFR, ANEU, CMP, ADIFF, TSH, FT4, LIPID, CBC #### [place] [address] Platelet mean volume (Bld) [Entitic vol] 9.0 fL Normal 6.4-10.5 [facility] ([place]) Comment on above: Performed By: #### 1 [id number], GFR, ANEU, CMP, ADIFF, TSH, FT4, LIPID, CBC #### [place] [address] RBC 5.00 10 6/mcL Normal 4.50-6.00 [facility] ([place]) Comment on above: Performed By: #### 1 78421, GFR, ANEU, CMP, ADIFF, TSH, FT4, LIPID, CBC #### [place] [address] WBC 4.6 10 3/mcL Normal 4.5-10.8 [facility] ([place]) Comment on above: Performed By: #### 1 71278, GFR, ANEU, CMP, ADIFF, TSH, FT4, LIPID, CBC #### [place] [address] CMPon 07-27-2023 Albumin Level 3.8 G/dL Normal 3.2-4.8 [facility] ([place]) Comment on above: Performed By: #### T SH, ADIFF, ANEU, FT4, [id number], CBC, GFR, LIPID, CMP #### [place] [address] Albumin/Globulin [Mass ratio] 1.2 {ratio} Normal 0.9-1.6 [facility] ([place]) Comment on above: Performed By: #### T SH, ADIFF, ANEU, FT4, [id number], CBC, GFR, LIPID, CMP #### [place] [address] ALP [Catalytic activity/Vol] 77 U/L Normal 38-126 [facility] ([place]) Comment on above: Performed By: #### T SH, ADIFF, ANEU, FT4, [id number], CBC, GFR, LIPID, CMP #### [facility] [address] [place], [place] [address] ALT [Catalytic activity/Vol] 21 U/L Normal 12-55 [facility] ([place]) Comment on above: Performed By: #### T SH, ADIFF, ANEU, FT4, [id number], CBC, GFR, LIPID, CMP #### [address] [address] AST [Catalytic activity/Vol] 23 U/L Normal 8-34 [facility] ([place]) Comment on above: Performed By: #### T SH, ADIFF, ANEU, FT4, 600666, CBC, GFR, LIPID, CMP #### [address] [address] Bili Total 0.50 mg/dL Normal 0.20-1.20 [facility] ([place]) Comment on above: Result Comment: Use of this assay is not recommended for patients undergoing treatment with eltrombopag due to the potential for falsely elevated results. Performed By: #### T SH, ADIFF, ANEU, FT4, [id number], CBC, GFR, LIPID, CMP #### [place] [id number] BUN/Creatinine Ratio 25.9 ratio High 10.0-22.0 [facility] Comment on above: Performed By: #### T SH, ADIFF, ANEU, FT4, 833569, CBC, GFR, LIPID, CMP #### [address] [address] Calcium [Mass/Vol] 9.0 mg/dL Normal 8.7-10.4 [facility] ([place]) Comment on above: Performed By: #### T SH, ADIFF, ANEU, FT4, 866525, CBC, GFR, LIPID, CMP #### [address] [address] Chloride [Moles/Vol] 107 mmol/L Normal 98-110 [facility] [place] Comment on above: Performed By: #### T SH, ADIFF, ANEU, FT4, 815607, CBC, GFR, LIPID, CMP #### [address] [address] CO2 [Moles/Vol] 30 mmol/L Normal 22-32 [facility] ([place] Comment on above: Performed By: #### T SH, ADIFF, ANEU, FT4, 779998, CBC, GFR, LIPID, CMP #### [address] [address] Creatinine [Mass/Vol] 0.85 mg/dL Normal 0.60-1.40 [facility] ([place]) Comment on above: Performed By: #### T SH, ADIFF, ANEU, FT4, 219162, CBC, GFR, LIPID, CMP #### [address] [address] Electrolyte Balance 4.0 mEq/L Normal 4.0-15.0 [facility] ([place]) Comment on above: Performed By: #### T SH, ADIFF, ANEU, FT4, 418864, CBC, GFR, LIPID, CMP #### [place] [id number] Globulin 3.1 G/dL Normal 1.5-3.8 [facility] ([place]) Comment on above: Performed By: #### T SH, ADIFF, ANEU, FT4, 937920, CBC, GFR, LIPID, CMP #### [place] [id number] Glucose [Mass/Vol] 97 mg/dL Normal 82-115 [facility] ([place]) Comment on above: Performed By: #### T SH, ADIFF, ANEU, FT4, 684021, CBC, GFR, LIPID, CMP #### [place] [id number] Potassium [Moles/Vol] 4.2 mmol/L Normal 3.5-5.0 [facility] ([place]) Comment on above: Result Comment: Spec imen slightly hemolyzed. Performed By: #### T SH, ADIFF, ANEU, FT4, 839830, CBC, GFR, LIPID, CMP #### [place] [id number] Sodium [Moles/Vol] 141 mmol/L Normal 136-145 [facility] ([place]) Comment on above: Performed By: #### T SH, ADIFF, ANEU, FT4, 504145, CBC, GFR, LIPID, CMP #### [address] [address] Total Protein 6.9 G/dL Normal 5.7-8.2 [facility] ([place]) Comment on above: Result Comment: No te - New Reference Range in effect 20 Performed By: #### T SH, ADIFF, ANEU, FT4, 577256, CBC, GFR, LIPID, CMP #### [address] [address] Urea nitrogen [Mass/Vol] 22.0 mg/dL Normal 8.0-22.0 [facility] ([place]) Comment on above: Performed By: #### T SH, ADIFF, ANEU, FT4, 671502, CBC, GFR, LIPID, CMP #### [address] [address] FT4on 07-27-2023 Free T4 [Mass/Vol] 1.03 ng/dL Normal 0.89-1.76 [facility] ([place]) Comment on above: Result Comment: No te - New Reference Range in effect 20 Performed By: #### T SH, ADIFF, ANEU, FT4, 337538, CBC, GFR, LIPID, CMP #### [address] [address] LIPIDon 07-27-2023 Cholesterol [Mass/Vol] 198 mg/dL Normal 50-199 [facility] ([place]) Comment on above: Result Comment: Chol esterol Reference Interval: Less than 200 Desirable 200-239 Borderline high risk 240 and above High risk Performed By: #### T SH, ADIFF, ANEU, FT4, 633844, CBC, GFR, LIPID, CMP #### [address] [address] Cholesterol in HDL [Mass/Vol] 31 mg/dL Low 40-59 [facility] ([place]) Comment on above: Performed By: #### T SH, ADIFF, ANEU, FT4, 514740, CBC, GFR, LIPID, CMP #### [address] [address] Cholesterol in LDL [Mass/Vol] 147 mg/dL High 0-129 [facility] ([place]) Comment on above: Performed By: #### T SH, ADIFF, ANEU, FT4, 157521, CBC, GFR, LIPID, CMP #### [facility] [address] [place] [address] Triglyceride [Mass/Vol] 101 mg/dL Normal 3-149 [facility] ([place]) Comment on above: Performed By: #### T SH, ADIFF, ANEU, FT4, 171428, CBC, GFR, LIPID, CMP #### [facility] [address] [place] [address] TSHon 07-27-2023 TSH 2.058 mIU/mL Normal 0.550-4.780 [facility] ([place]) Comment on above: Result Comment: No te - New Reference Range in effect 20 Performed By: #### T SH, ADIFF, ANEU, FT4, 147863, CBC, GFR, LIPID, CMP #### [address] [address] Absolute lymphocyte countOrd ered By: Josue Shaheen on 01-08-2023 Lymphocytes Auto (Unsp spec) [#/Vol] 1.35 10*3/uL 0.83-4.51 [facility] Basophil percentageOrdered B y: Josue Jamison on 01-08-2023 Basophils/100 WBC (Bld) 1.0 % 0-1 [facility] Chloride [Moles/Vol] 104 mmol/L 98-107 [facility] Eosinophils/100 WBC (Bld) 2.4 % 0-5 [facility] Glucose [Mass/Vol] 99 mg/dL 74-106 [facility] Neutrophils (Bld) [#/Vol] 7.1 10*3/uL 2.0-7.7 [facility] Neutrophils/100 WBC (Bld) 75.2 % 47-70 [facility] Potassium [Moles/Vol] 4.7 mmol/L 3.5-5.1 [facility] Sodium [Moles/Vol] 140 mmol/L 136-145 [facility] WBC (Bld) [#/Vol] 9.4 10*3/uL 4.4-11.0 [facility] Blood erythrocytes count (nu mber/volume)Ordered By: Josue Jamison on 01-08-2023 RBC (Bld) [#/Vol] 5.59 10*6/uL 4.6-6.2 [facility] Blood hemoglobin measurement (mass/volume)Ordered By: Josue Jamison on 01-08-2023 Hemoglobin (Bld) [Mass/Vol] 17.2 g/dL 13.0-16.5 [facility] Blood lymphocytes/100 leukoc ytesOrdered By: Josue Jamison on 01-08-2023 Lymphocytes/100 WBC (Bld) 14.4 % 19-41 [facility] Blood monocytes/100 leukocyt esOrdered By: Josuejak Jamison on 01-08-2023 Monocytes/100 WBC (Bld) 6.6 % 0-10 [facility] Blood platelet mean volumeOr dered By: Josue Jamison on 01-08-2023 Platelet mean volume (Bld) [Entitic vol] 9.9 fL 6.2-12.0 [facility] Determination of erythrocyte mean corpuscular volume (MCV)Ordered By: Josue Jamison on 01-08-2023 MCV (RBC) [Entitic vol] 91.2 fL 80-94 [facility] Hematocrit Auto (Bld) [Volum e fraction]Ordered By: Josue Jamison on 01-08-2023 Hematocrit (Bld) [Volume fraction] 51.0 % 40-54 [facility] Laboratory - Chemistry and C hemistry - challengeOrdered By: Josue Jamison on 01-08-2023 CO2 [Moles/Vol] 26.0 mmol/L 21.0-32.0 [facility] Urea nitrogen/Creatinine [Mass ratio] 17.9 mg/mg 10-20 [facility] Laboratory - Hematology and Cell countsOrdered By: Josue Jamison on 01-08-2023 Erythrocyte distribution width (RBC) [Entitic vol] 44.7 fL 35.1-43.9 [facility] Erythrocyte distribution width (RBC) [Ratio] 13.2 % 11.6-14.6 [facility] Immature granulocytes/100 WBC (Bld) 0.400 % 0.0-0.9 [facility] Comment on above: IG% - Immature Granu locytes (promyelocytes, myelocytes and metamyelocytes) > 1% indicates that a LEFT SHIFT is Present. MCH (RBC) [Entitic mass] 30.8 pg 27.0-32.0 [facility] Nucleated RBC/100 WBC (Bld) [Ratio] 0 % 0-5 [facility] MCHC Auto (RBC) [Mass/Vol]Or dered By: Josue Jamison on 01-08-2023 MCHC (RBC) [Mass/Vol] 33.7 g/dL 32-36 [facility] No Panel InformationOrdered By: Josue Jamison on 01-08-2023 Estimated Creatinine Clearance Calc 35.50 ml/min [facility] Estimated GFR (MDRD) Amer 45 mL/min >60 [facility] Comment on above: GFR Calc Estimated GFR (MDRD) Non-Af Amer 38 mL/min >60 [facility] Comment on above: Non- GFR Calc Platelets bldOrdered By: Frederick Jamison on 01-08-2023 Platelets (Bld) [#/Vol] 294 10*3/uL 150-450 [facility] Serum or plasma calcium dougie urement (mass/volume)Ordered By: Josue Jamison on 01-08-2023 Calcium [Mass/Vol] 9.8 mg/dL 8.5-10.1 [facility] Serum or plasma creatinine m easurement (mass/volume)Ordered By: Josue Jamison on 01-08-2023 Creatinine [Mass/Vol] 1.90 mg/dL 0.70-1.30 [facility] Comment on above: The validity of the calculated GFR & GFRAA in patients over 70 years has not been determined. Clinical correlation is essential. Serum or plasma urea nitroge n measurement (mass/volume)Ordered By: Josue Jamison on 01-08-2023 Urea nitrogen [Mass/Vol] 34 mg/dL 7-18 [facility] Thin prep Papanicolaou smear with manual screeningOrdered By: Josue Jamison on 01-08-2023 Thin prep Papanicolaou smear with manual screening 10 5-15 [facility] Absolute lymphocyte counton 06-27-2022 Lymphocytes Auto (Unsp spec) [#/Vol] 1.56 10*3/uL 0.83-4.51 [facility] Work Phone: Basophil percentageon 2021 Basophils/100 WBC (Bld) 1.2 % 0-1 [facility] Work Phone: Eosinophils/100 WBC (Bld) 3.6 % 0-5 [facility] Work Phone: Neutrophils (Bld) [#/Vol] 4.4 10*3/uL 2.0-7.7 [facility] Work Phone: [phone] Neutrophils/100 WBC (Bld) 64.7 % 47-70 [facility] Work Phone: WBC (Bld) [#/Vol] 6.8 10*3/uL 4.4-11.0 [facility] Work Phone: Bilirubin [Mass/Vol] 0.60 mg/dL 0.20-1.00 [facility] Work Phone: Comment on above: For patients on eltr ombopag therapy, use of Dimension [place] TBIL is not recommended. Chloride [Moles/Vol] 106 mmol/L 98-107 [facility] Work Phone: Cholesterol [Mass/Vol] 176 mg/dL <200 [facility] Work Phone: Comment on above: <200 mg/dL Desirable 200-240 mg/dL Borderline >240 mg/dL High Risk Glucose [Mass/Vol] 95 mg/dL 74-106 [facility] Work Phone: [phone] Potassium [Moles/Vol] 3.9 mmol/L 3.5-5.1 [facility] Work Phone: Protein [Mass/Vol] 6.5 g/dL 6.4-8.2 [facility] Work Phone: [phone] Sodium [Moles/Vol] 138 mmol/L 136-145 [facility] Work Phone: [phone] Triglyceride [Mass/Vol] 94 mg/dL <199 [facility] Work Phone: Comment on above: The drugs N-Acetylcy steine and Metamizole may falsely depress this assay.Serum Triglycerides Reference Interval Normal <150 mg/dL Borderline high 150 - 199 mg/dL High 200 - 499 mg/dL Very High > or = 500 mg/dL Blood erythrocytes count (nu mber/volume)on 06-27-2022 RBC (Bld) [#/Vol] 4.97 10*6/uL 4.6-6.2 [facility] Work Phone: Blood hemoglobin measurement (mass/volume)on 06-27-2022 Hemoglobin (Bld) [Mass/Vol] 14.7 g/dL 13.0-16.5 [facility] Work Phone: Blood lymphocytes/100 leukoc yteson 06-27-2022 Lymphocytes/100 WBC (Bld) 23.1 % 19-41 [facility] Work Phone: Blood monocytes/100 leukocyt eson 06-27-2022 Monocytes/100 WBC (Bld) 7.1 % 0-10 [facility] Work Phone: Blood platelet mean volumeon 06-27-2022 Platelet mean volume (Bld) [Entitic vol] 9.3 fL 6.2-12.0 [facility] Work Phone: Determination of erythrocyte mean corpuscular volume (MCV)on 06-27-2022 MCV (RBC) [Entitic vol] 92.0 fL 80-94 [facility] Work Phone: Erythrocyte sedimentation ra frederick 06-27-2022 ESR (Bld) [Velocity] 13 mm/h 0-20 [facility] Work Phone: [phone] Hematocrit Auto (Bld) [Volum e fraction]on 06-27-2022 Hematocrit (Bld) [Volume fraction] 45.7 % 40-54 [facility] Work Phone: INR in Blood by Coagulation assayon 06-27-2022 INR Coag (Bld) [Relative time] 1.1 {INR} [facility] Work Phone: Laboratory - Chemistry and C hemistry - challengeon 06-27-2022 ALP [Catalytic activity/Vol] 100 U/L 45-117 [facility] Work Phone: ALT [Catalytic activity/Vol] 27 U/L 16-61 [facility] Work Phone: CO2 [Moles/Vol] 25.0 mmol/L 21.0-32.0 [facility] Work Phone: Globulin (S) [Mass/Vol] 3.5 g/dL 2.2-4.2 [facility] Work Phone: [phone] Magnesium [Mass/Vol] 2.0 mg/dL 1.6-2.6 [facility] Work Phone: Urea nitrogen/Creatinine [Mass ratio] 15.2 mg/mg 10-20 [facility] Work Phone: Laboratory - Coagulationon 1 08-28-2021 PT Coag (PPP) [Time] 13.7 s 11.7-14.9 [facility] Work Phone: Laboratory - Hematology and Cell countson 06-27-2022 Erythrocyte distribution width (RBC) [Entitic vol] 46.3 fL 35.1-43.9 [facility] Work Phone: Erythrocyte distribution width (RBC) [Ratio] 13.6 % 11.6-14.6 [facility] Work Phone: Immature granulocytes/100 WBC (Bld) 0.300 % 0.0-0.9 [facility] Work Phone: Comment on above: IG% - Immature Granu locytes (promyelocytes, myelocytes and metamyelocytes) > 1% indicates that a LEFT SHIFT is Present. MCH (RBC) [Entitic mass] 29.6 pg 27.0-32.0 [facility] Work Phone: Nucleated RBC/100 WBC (Bld) [Ratio] 0 % 0-5 [facility] Work Phone: MCHC Auto (RBC) [Mass/Vol]on 06-27-2022 MCHC (RBC) [Mass/Vol] 32.2 g/dL 32-36 [facility] Work Phone: No Panel Informationon 06-27 Estimated Creatinine Clearance Calc 80.47 ml/min [facility] Work Phone: Estimated GFR (MDRD) Amer 115 mL/min >60 [facility] Work Phone: Comment on above: GFR Calc Estimated GFR (MDRD) Non-Af Amer 95 mL/min >60 [facility] Work Phone: Comment on above: Non- GFR Calc Thyroid Stimulating Hormone (TSH) 2.28 uIU/mL 0.358-3.74 [facility] Work Phone: Troponin I High Sensitivity 94 pg/mL 3.0-78.0 [facility] Work Phone: Comment on above: Please Note: New Beth t Units and Gender Specific Reference Ranges. For more information see Policy Stat Procedure [place] High Sensitivity Troponin (TNIH) and attachments. Platelets bldon 06-27-2022 Platelets (Bld) [#/Vol] 325 10*3/uL 150-450 [facility] Work Phone: Serum or plasma C reactive p rotein measurement (mass/volume)on 06-27-2022 CRP [Mass/Vol] 11.50 mg/L 0.0-3.0 [facility] Work Phone: Comment on above: C-Reactive Protein ( CRP) provides useful information for thediagnosis, therapy and monitoring of inflammatory processesand associated diseases. For the evaluation of Relative Riskfor Cardiovascular Disease, a High Sensitivity CRP (HSCRP)should be ordered. Serum or plasma albumin dougie urement (mass/volume)on 06-27-2022 Albumin [Mass/Vol] 3.0 g/dL 3.2-5.0 [facility] Work Phone: Serum or plasma albumin/glob ulin mass ratioon 06-27-2022 Albumin/Globulin [Mass ratio] 0.9 {ratio} 0.9-2.4 [facility] Work Phone: Serum or plasma calcium dougie urement (mass/volume)on 06-27-2022 Calcium [Mass/Vol] 8.7 mg/dL 8.5-10.1 [facility] Work Phone: Serum or plasma cholesterol in HDL measurement (mass/volume)on 06-27-2022 Cholesterol in HDL [Mass/Vol] 27 mg/dL >40 [facility] Work Phone: Comment on above: The drugs N-Acetylcy steine and Metamizole may falsely depress this assay. Reference Range HDL <40 mg/dL Low HDL Cholesterol HDL >or= 60 mg/dL High HDL Cholesterol Serum or plasma cholesterol in VLDL measurement (mass/volume)on 06-27-2022 Cholesterol in VLDL [Mass/Vol] 19 mg/dL 5-40 [facility] Work Phone: Serum or plasma creatinine m easurement (mass/volume)on 06-27-2022 Creatinine [Mass/Vol] 0.85 mg/dL 0.70-1.30 [facility] Work Phone: Comment on above: The validity of the calculated GFR & GFRAA in patients over 70 years has not been determined. Clinical correlation is essential. Serum or plasma low density lipoprotein (LDL) cholesterol measurement (mass/volume)on 06-27-2022 Cholesterol in LDL [Mass/Vol] 130 mg/dL 0-130 [facility] Work Phone: Serum or plasma urea nitroge n measurement (mass/volume)on 06-27-2022 Urea nitrogen [Mass/Vol] 13 mg/dL 7-18 [facility] Work Phone: Thin prep Papanicolaou smear with manual screeningon 06-27-2022 Thin prep Papanicolaou smear with manual screening 25 U/L 15-37 [facility] Work Phone: Thin prep Papanicolaou smear with manual screening 7 5-15 [facility] Work Phone: Absolute lymphocyte counton 06-26-2022 Lymphocytes Auto (Unsp spec) [#/Vol] 1.43 10*3/uL 0.83-4.51 [facility] Work Phone: Basophil percentageon 2021 Basophils/100 WBC (Bld) 1.2 % 0-1 [facility] Work Phone: [phone] Chloride [Moles/Vol] 105 mmol/L 98-107 [facility] Work Phone: [phone] Eosinophils/100 WBC (Bld) 2.2 % 0-5 [facility] Work Phone: [phone] Glucose [Mass/Vol] 99 mg/dL 74-106 [facility] Work Phone: Neutrophils (Bld) [#/Vol] 6.4 10*3/uL 2.0-7.7 [facility] Work Phone: [phone] Neutrophils/100 WBC (Bld) 73.8 % 47-70 [facility] Work Phone: [phone] Potassium [Moles/Vol] 4.5 mmol/L 3.5-5.1 [facility] Work Phone: [phone] Sodium [Moles/Vol] 141 mmol/L 136-145 [facility] Work Phone: WBC (Bld) [#/Vol] 8.7 10*3/uL 4.4-11.0 [facility] Work Phone: [phone] Blood erythrocytes count (nu mber/volume)on 06-26-2022 RBC (Bld) [#/Vol] 5.29 10*6/uL 4.6-6.2 [facility] Work Phone: [phone] Blood hemoglobin measurement (mass/volume)on 06-26-2022 Hemoglobin (Bld) [Mass/Vol] 15.9 g/dL 13.0-16.5 [facility] Work Phone: [phone] Blood lymphocytes/100 leukoc yteson 06-26-2022 Lymphocytes/100 WBC (Bld) 16.5 % 19-41 [facility] Work Phone: Blood monocytes/100 leukocyt eson 06-26-2022 Monocytes/100 WBC (Bld) 5.8 % 0-10 [facility] Work Phone: Blood platelet mean volumeon 06-26-2022 Platelet mean volume (Bld) [Entitic vol] 9.1 fL 6.2-12.0 [facility] Work Phone: Determination of erythrocyte mean corpuscular volume (MCV)on 06-26-2022 MCV (RBC) [Entitic vol] 93.0 fL 80-94 [facility] Work Phone: Hematocrit Auto (Bld) [Volum e fraction]on 06-26-2022 Hematocrit (Bld) [Volume fraction] 49.2 % 40-54 [facility] Work Phone: Laboratory - Chemistry and C hemistry - challengeon 06-26-2022 CO2 [Moles/Vol] 35.0 mmol/L 21.0-32.0 [facility] Work Phone: Natriuretic peptide B (Bld) [Mass/Vol] 22.5 pg/mL 0-100 [facility] Work Phone: Urea nitrogen/Creatinine [Mass ratio] 14.7 mg/mg 10-20 [facility] Work Phone: Laboratory - Hematology and Cell countson 06-26-2022 Erythrocyte distribution width (RBC) [Entitic vol] 45.4 fL 35.1-43.9 [facility] Work Phone: Erythrocyte distribution width (RBC) [Ratio] 13.2 % 11.6-14.6 [facility] Work Phone: Immature granulocytes/100 WBC (Bld) 0.500 % 0.0-0.9 [facility] Work Phone: Comment on above: IG% - Immature Granu locytes (promyelocytes, myelocytes and metamyelocytes) > 1% indicates that a LEFT SHIFT is Present. MCH (RBC) [Entitic mass] 30.1 pg 27.0-32.0 [facility] Work Phone: Nucleated RBC/100 WBC (Bld) [Ratio] 0 % 0-5 [facility] Work Phone: MCHC Auto (RBC) [Mass/Vol]on 06-26-2022 MCHC (RBC) [Mass/Vol] 32.3 g/dL 32-36 [facility] Work Phone: No Panel Informationon 06-26 Troponin I High Sensitivity 101 pg/mL 3.0-78.0 [facility] Work Phone: Comment on above: Please Note: New Beth t Units and Gender Specific Reference Ranges. For more information see Policy Stat Procedure [place] High Sensitivity Troponin (TNIH) and attachments. Estimated Creatinine Clearance Calc 72.00 ml/min [facility] Work Phone: Estimated GFR (MDRD) Amer 101 mL/min >60 [facility] Work Phone: Comment on above: GFR Calc Estimated GFR (MDRD) Non-Af Amer 83 mL/min >60 [facility] Work Phone: Comment on above: Non- GFR Calc Platelets bldon 06-26-2022 Platelets (Bld) [#/Vol] 346 10*3/uL 150-450 [facility] Work Phone: Serum or plasma calcium dougie urement (mass/volume)on 06-26-2022 Calcium [Mass/Vol] 9.3 mg/dL 8.5-10.1 [facility] Work Phone: Serum or plasma creatinine m easurement (mass/volume)on 06-26-2022 Creatinine [Mass/Vol] 0.95 mg/dL 0.70-1.30 [facility] Work Phone: Comment on above: The validity of the calculated GFR & GFRAA in patients over 70 years has not been determined. Clinical correlation is essential. Serum or plasma urea nitroge n measurement (mass/volume)on 06-26-2022 Urea nitrogen [Mass/Vol] 14 mg/dL 7-18 [facility] Work Phone: Thin prep Papanicolaou smear with manual screeningon 06-26-2022 Thin prep Papanicolaou smear with manual screening 1 -15 [facility] Work Phone: Basophil percentageon 2021 Chloride [Moles/Vol] 100 mmol/L 98-107 [facility] Work Phone: Glucose [Mass/Vol] 161 mg/dL 74-106 [facility] Work Phone: Comment on above: Fasting Glucose resu lt greater than or equal to 126 mg/dL suggests DIABETES MELLITUS per A.D.A. criteria. Potassium [Moles/Vol] 4.6 mmol/L 3.5-5.1 [facility] Work Phone: Sodium [Moles/Vol] 135 mmol/L 136-145 [facility] Work Phone: WBC (Bld) [#/Vol] 12.6 10*3/uL 4.4-11.0 [facility] Work Phone: Blood erythrocytes count (nu mber/volume)on 06-13-2022 RBC (Bld) [#/Vol] 4.75 10*6/uL 4.6-6.2 [facility] Work Phone: Blood hemoglobin measurement (mass/volume)on 06-13-2022 Hemoglobin (Bld) [Mass/Vol] 14.1 g/dL 13.0-16.5 [facility] Work Phone: Blood platelet mean volumeon 06-13-2022 Platelet mean volume (Bld) [Entitic vol] 9.7 fL 6.2-12.0 [facility] Work Phone: Determination of erythrocyte mean corpuscular volume (MCV)on 06-13-2022 MCV (RBC) [Entitic vol] 92.0 fL 80-94 [facility] Work Phone: Hematocrit Auto (Bld) [Volum e fraction]on 06-13-2022 Hematocrit (Bld) [Volume fraction] 43.7 % 40-54 [facility] Work Phone: Laboratory - Chemistry and C hemistry - challengeon 06-13-2022 CO2 [Moles/Vol] 29.0 mmol/L 21.0-32.0 [facility] Work Phone: Urea nitrogen/Creatinine [Mass ratio] 20.2 mg/mg 10-20 [facility] Work Phone: Laboratory - Hematology and Cell countson 06-13-2022 Erythrocyte distribution width (RBC) [Entitic vol] 44.0 fL 35.1-43.9 [facility] Work Phone: Erythrocyte distribution width (RBC) [Ratio] 12.9 % 11.6-14.6 [facility] Work Phone: MCH (RBC) [Entitic mass] 29.7 pg 27.0-32.0 [facility] Work Phone: MCHC Auto (RBC) [Mass/Vol]on 06-13-2022 MCHC (RBC) [Mass/Vol] 32.3 g/dL 32-36 [facility] Work Phone: No Panel Informationon 06-13 Estimated Creatinine Clearance Calc 55.16 ml/min [facility] Work Phone: Estimated GFR (MDRD) Amer 74 mL/min >60 [facility] Work Phone: Comment on above: GFR Calc Estimated GFR (MDRD) Non-Af Amer 62 mL/min >60 [facility] Work Phone: Comment on above: Non- GFR Calc Platelets bldon 06-13-2022 Platelets (Bld) [#/Vol] 239 10*3/uL 150-450 [facility] Work Phone: Serum or plasma calcium dougie urement (mass/volume)on 06-13-2022 Calcium [Mass/Vol] 7.7 mg/dL 8.5-10.1 [facility] Work Phone: Serum or plasma creatinine m easurement (mass/volume)on 06-13-2022 Creatinine [Mass/Vol] 1.24 mg/dL 0.70-1.30 [facility] Work Phone: Comment on above: The validity of the calculated GFR & GFRAA in patients over 70 years has not been determined. Clinical correlation is essential. Serum or plasma urea nitroge n measurement (mass/volume)on 06-13-2022 Urea nitrogen [Mass/Vol] 25 mg/dL 7-18 [facility] Work Phone: Thin prep Papanicolaou smear with manual screeningon 06-13-2022 Thin prep Papanicolaou smear with manual screening 6 5-15 [facility] Work Phone: Absolute lymphocyte counton 05-29-2022 Lymphocytes Auto (Unsp spec) [#/Vol] 1.44 10*3/uL 0.83-4.51 [facility] Work Phone: [phone] Basophil percentageon 2021 Basophils/100 WBC (Bld) 1.6 % 0-1 [facility] Work Phone: Bilirubin [Mass/Vol] 0.70 mg/dL 0.20-1.00 [facility] Work Phone: Comment on above: For patients on eltr ombopag therapy, use of Dimension [place] TBIL is not recommended. Eosinophils/100 WBC (Bld) 2.3 % 0-5 [facility] Work Phone: Neutrophils (Bld) [#/Vol] 3.6 10*3/uL 2.0-7.7 [facility] Work Phone: [phone] Neutrophils/100 WBC (Bld) 63.2 % 47-70 [facility] Work Phone: Protein [Mass/Vol] 7.8 g/dL 6.4-8.2 [facility] Work Phone: Blood lymphocytes/100 leukoc yteson 05-29-2022 Lymphocytes/100 WBC (Bld) 25.6 % 19-41 [facility] Work Phone: Blood monocytes/100 leukocyt eson 05-29-2022 Monocytes/100 WBC (Bld) 6.9 % 0-10 [facility] Work Phone: Direct bilirubinon 2 Bilirubin.direct [Mass/Vol] 0.17 mg/dL 0.00-0.30 [facility] Work Phone: Laboratory - Chemistry and C hemistry - challengeon 05-29-2022 ALP [Catalytic activity/Vol] 117 U/L 45-117 [facility] Work Phone: ALT [Catalytic activity/Vol] 26 U/L 16-61 [facility] Work Phone: Globulin (S) [Mass/Vol] 4.0 g/dL 2.2-4.2 [facility] Work Phone: Laboratory - Hematology and Cell countson 05-29-2022 Immature granulocytes/100 WBC (Bld) 0.400 % 0.0-0.9 [facility] Work Phone: Comment on above: IG% - Immature Granu locytes (promyelocytes, myelocytes and metamyelocytes) > 1% indicates that a LEFT SHIFT is Present. Nucleated RBC/100 WBC (Bld) [Ratio] 0 % 0-5 [facility] Work Phone: Serum or plasma albumin dougie urement (mass/volume)on 05-29-2022 Albumin [Mass/Vol] 3.8 g/dL 3.2-5.0 [facility] Work Phone: Thin prep Papanicolaou smear with manual screeningon 05-29-2022 Thin prep Papanicolaou smear with manual screening 20 U/L 15-37 [facility] Work Phone: Absolute lymphocyte counton 03-01-2022 Lymphocytes Auto (Unsp spec) [#/Vol] 1.45 10*3/uL 0.83-4.51 [facility] Work Phone: Basophil percentageon 2021 Basophils/100 WBC (Bld) 0.7 % 0-1 [facility] Work Phone: [phone] Chloride [Moles/Vol] 102 mmol/L 98-107 [facility] Work Phone: Eosinophils/100 WBC (Bld) 1.7 % 0-5 [facility] Work Phone: Glucose [Mass/Vol] 103 mg/dL 74-106 [facility] Work Phone: [phone] Comment on above: Fasting Glucose resu lt from 100 to 125 mg/dL suggests IMPAIRED HOMEOSTASIS per A.D.A. criteria. Lactate [Moles/Vol] 1.2 mmol/L 0.4-2.0 [facility] Work Phone: Neutrophils (Bld) [#/Vol] 6.9 10*3/uL 2.0-7.7 [facility] Work Phone: Neutrophils/100 WBC (Bld) 73.3 % 47-70 [facility] Work Phone: Potassium [Moles/Vol] 4.2 mmol/L 3.5-5.1 [facility] Work Phone: Sodium [Moles/Vol] 139 mmol/L 136-145 [facility] Work Phone: WBC (Bld) [#/Vol] 9.4 10*3/uL 4.4-11.0 [facility] Work Phone: Blood erythrocytes count (nu mber/volume)on 03-01-2022 RBC (Bld) [#/Vol] 4.69 10*6/uL 4.6-6.2 [facility] Work Phone: Blood hemoglobin measurement (mass/volume)on 03-01-2022 Hemoglobin (Bld) [Mass/Vol] 14.5 g/dL 13.0-16.5 [facility] Work Phone: Blood lymphocytes/100 leukoc yteson 03-01-2022 Lymphocytes/100 WBC (Bld) 15.5 % 19-41 [facility] Work Phone: Blood monocytes/100 leukocyt eson 03-01-2022 Monocytes/100 WBC (Bld) 8.2 % 0-10 [facility] Work Phone: Blood platelet mean volumeon 03-01-2022 Platelet mean volume (Bld) [Entitic vol] 9.7 fL 6.2-12.0 [facility] Work Phone: Determination of erythrocyte mean corpuscular volume (MCV)on 03-01-2022 MCV (RBC) [Entitic vol] 92.1 fL 80-94 [facility] Work Phone: Erythrocyte sedimentation ra frederick 03-01-2022 ESR (Bld) [Velocity] 25 mm/h 0-20 [facility] Work Phone: Hematocrit Auto (Bld) [Volum e fraction]on 03-01-2022 Hematocrit (Bld) [Volume fraction] 43.2 % 40-54 [facility] Work Phone: Laboratory - Chemistry and C hemistry - challengeon 03-01-2022 CO2 [Moles/Vol] 32.0 mmol/L 21.0-32.0 [facility] Work Phone: Urea nitrogen/Creatinine [Mass ratio] 19.1 mg/mg 10- [facility] Work Phone: Laboratory - Hematology and Cell countson 03-01-2022 Erythrocyte distribution width (RBC) [Entitic vol] 45.0 fL 35.1-43.9 [facility] Work Phone: Erythrocyte distribution width (RBC) [Ratio] 13.4 % 11.6-14.6 [facility] Work Phone: Immature granulocytes/100 WBC (Bld) 0.600 % 0.0-0.9 [facility] Work Phone: Comment on above: IG% - Immature Granu locytes (promyelocytes, myelocytes and metamyelocytes) > 1% indicates that a LEFT SHIFT is Present. MCH (RBC) [Entitic mass] 30.9 pg 27.0-32.0 [facility] Work Phone: Nucleated RBC/100 WBC (Bld) [Ratio] 0 % 0-5 [facility] Work Phone: MCHC Auto (RBC) [Mass/Vol]on 03-01-2022 MCHC (RBC) [Mass/Vol] 33.6 g/dL 32-36 [facility] Work Phone: No Panel Informationon 03-01 Estimated Creatinine Clearance Calc 86.90 ml/min [facility] Work Phone: Estimated GFR (MDRD) Amer 117 mL/min >60 [facility] Work Phone: Comment on above: GFR Calc Estimated GFR (MDRD) Non-Af Amer 97 mL/min >60 [facility] Work Phone: Comment on above: Non- GFR Calc Platelets bldon 03-01-2022 Platelets (Bld) [#/Vol] 299 10*3/uL 150-450 [facility] Work Phone: Serum or plasma C reactive p rotein measurement (mass/volume)on 03-01-2022 CRP [Mass/Vol] 133.00 mg/L 0.0-3.0 [facility] Work Phone: Comment on above: C-Reactive Protein ( CRP) provides useful information for thediagnosis, therapy and monitoring of inflammatory processesand associated diseases. For the evaluation of Relative Riskfor Cardiovascular Disease, a High Sensitivity CRP (HSCRP)should be ordered. Serum or plasma calcium dougie urement (mass/volume)on 03-01-2022 Calcium [Mass/Vol] 8.9 mg/dL 8.5-10.1 [facility] Work Phone: Serum or plasma creatinine m easurement (mass/volume)on 03-01-2022 Creatinine [Mass/Vol] 0.84 mg/dL 0.70-1.30 [facility] Work Phone: Comment on above: The validity of the calculated GFR & GFRAA in patients over 70 years has not been determined. Clinical correlation is essential. Serum or plasma urea nitroge n measurement (mass/volume)on 03-01-2022 Urea nitrogen [Mass/Vol] 16 mg/dL 7-18 [facility] Work Phone: Thin prep Papanicolaou smear with manual screeningon 03-01-2022 Thin prep Papanicolaou smear with manual screening 5 5-15 [facility] Work Phone: Laboratory - Microbiology an d Antimicrobial susceptibilityon 01-11-2022 SARS-CoV-2 (COVID-19) RNA EVENS+probe Ql (Unsp spec) Detected [facility] Work Phone: No Panel Informationon 01-11 Influenza Types A,B Rapid (Clinic) Not detected [facility] Work Phone: ECHO Complete 2D W Doppler W Coloron 11-28-2021 TRANSTHORACIC ECHOCA RDIOGRAM PATIENT: Christopher Silva STUDY DATE: 11/28/2021 : 1955 AGE: 66 HT/WT: 177.8 cm (70 140.6 kg in) (309.3 lb) GENDER: M BP: 122 / 81 LOCATION: [place] [address] PATIENT [facility] STATUS: *ORDERING PHYSICIAN: * Shana Huerta *READING PHYSICIAN: * Sandra Shanks *MOBILE EQUIPMENT OPERATOR: * Demetrice Catalan INDICATIONS: 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 CONCLUSIONS SUMMARY: 1. Left ventricle: Systolic function is normal by the biplane method of disks. The estimated ejection fraction is 65%. There are no regional wall motion abnormalities. Doppler parameters are consistent with abnormal left ventricular relaxation (grade 1 diastolic dysfunction). 2. Mitral valve: Moderately thickened, moderately calcified leaflets. The findings are consistent with mild-moderate stenosis. There is mild-moderate, 1-2+ regurgitation. The mean diastolic gradient is 5 mm Hg. The peak diastolic gradient is 12 mm Hg. The valve area (LVOT continuity) is 1.7 cm^2. 3. Aortic valve: Prior repair procedures include transcatheter aortic valve replacement. There is a 23 mm Darnell Cheyanne 3 Ultra bioprosthetic valve (Darnell Cheyanne). There is no regurgitation. The peak systolic velocity is 3.7 m/sec. The mean systolic gradient is 32 mm Hg. The peak systolic gradient is 56 mm Hg. Dimensionless index: 0.5. The valve area by the velocity-time integral method is 1.2 cm^2. The valve area index by the velocity-time integral method is 0.5 cm^2/m^2. 4. Inferior vena cava: The vessel is dilated. The IVC collapses by greater than 50% with inspiration. STUDY DATA: Complete transthoracic echocardiogram. Procedure: Image quality was adequate. The study was technically limited due to body habitus and respiratory interference. M-mode, complete 2D, complete spectral Doppler, and color flow Doppler images were acquired and archived for permanent storage and are available for subsequent review. Study status: Routine. Patient status: Outpatient. FINDINGS LEFT VENTRICLE: The cavity size is normal. Wall thickness is normal. Systolic function is normal by the biplane method of disks. The estimated ejection fraction is 65%. There are no regional wall motion abnormalities. Doppler parameters are consistent with abnormal left ventricular relaxation (grade 1 diastolic dysfunction). RIGHT VENTRICLE: The cavity size is normal. Systolic function is normal. Right ventricular systolic pressure is within the normal range. VENTRICULAR SEPTUM: There is no evidence of a ventricular septal defect. LEFT ATRIUM: The atrium is mildly dilated. RIGHT ATRIUM: The atrium is normal in size. ATRIAL SEPTUM: Color Doppler shows no shunt. MITRAL VALVE: Moderately thickened, moderately calcified leaflets. Doppler: The findings are consistent with mild-moderate stenosis. There is mild-moderate, 1-2+ regurgitation. The valve area (LVOT continuity) is 1.7 cm^2. The mean diastolic gradient is 5 mm Hg. The peak diastolic gradient is 12 mm Hg. AORTIC VALVE: Prior repair procedures include transcatheter aortic valve replacement. There is a 23 mm Darnell Cheyanne 3 Ultra bioprosthetic valve (Darnell Cheyanne). Doppler: There is no regurgitation. Dimensionless index: 0.5. The valve area by the velocity-time integral method is 1.2 cm^2. The valve area index by the velocity-time integral method is 0.5 cm^2/m^2. The mean systolic gradient is 32 mm Hg. The peak systolic gradient is 56 mm Hg. The peak systolic velocity is 3.7 m/sec. TRICUSPID VALVE: Structurally normal valve. Doppler: There is trivial, less than 1+ regurgitation. PULMONIC VALVE: Structurally normal valve. Doppler: There is trivial, less than 1+ regurgitation. AORTA: The aorta is normal. PULMONARY ARTERY: Main pulmonary artery: Normal. PERICARDIUM: There is no pericardial effusion. SYSTEMIC VEINS: Inferior vena cava: The vessel is dilated. The IVC collapses by greater than 50% with inspiration. Measurements Value 01/02/2021 Reference Aortic root ID 2.2 cm 2.3 <4.7 Aortic root ID, STJ, ED (L) 1.9 cm 2.3 - 3.5 Aortic root ID/bsa, STJ, (L) 0.7 cm/m^2 1.1 - 1.9 ED Value 01/02/2021 Reference Ascending aorta ID, A-P, 2.1 cm (more content not included)... [facility] Sandra Shanks M D - 11/28/2021 TRANSTHORACIC ECHOCARDIOGRAM PATIENT: Christopher Silva STUDY DATE: 11/28/2021 [facility]#: [id number] : 1955 AGE: 66 HT/WT: 177.8 cm (70 140.6 kg in) (309.3 lb) GENDER: M BP: 122 / 81 LOCATION: [place] [address] PATIENT Outpatient [facility] STATUS: *ORDERING PHYSICIAN: * Shana Huerta *READING PHYSICIAN: * Sandra Shanks *MOBILE EQUIPMENT OPERATOR: * Demetrice Catalan INDICATIONS: 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 CONCLUSIONS SUMMARY: 1. Left ventricle: Systolic function is normal by the biplane method of disks. The estimated ejection fraction is 65%. There are no regional wall motion abnormalities. Doppler parameters are consistent with abnormal left ventricular relaxation (grade 1 diastolic dysfunction). 2. Mitral valve: Moderately thickened, moderately calcified leaflets. The findings are consistent with mild-moderate stenosis. There is mild-moderate, 1-2+ regurgitation. The mean diastolic gradient is 5 mm Hg. The peak diastolic gradient is 12 mm Hg. The valve area (LVOT continuity) is 1.7 cm^2. 3. Aortic valve: Prior repair procedures include transcatheter aortic valve replacement. There is a 23 mm Darnell Cheyanne 3 Ultra bioprosthetic valve (Darnell Cheyanne). There is no regurgitation. The peak systolic velocity is 3.7 m/sec. The mean systolic gradient is 32 mm Hg. The peak systolic gradient is 56 mm Hg. Dimensionless index: 0.5. The valve area by the velocity-time integral method is 1.2 cm^2. The valve area index by the velocity-time integral method is 0.5 cm^2/m^2. 4. Inferior vena cava: The vessel is dilated. The IVC collapses by greater than 50% with inspiration. STUDY DATA: Complete transthoracic echocardiogram. Procedure: Image quality was adequate. The study was technically limited due to body habitus and respiratory interference. M-mode, complete 2D, complete spectral Doppler, and color flow Doppler images were acquired and archived for permanent storage and are available for subsequent review. Study status: Routine. Patient status: Outpatient. FINDINGS LEFT VENTRICLE: The cavity size is normal. Wall thickness is normal. Systolic function is normal by the biplane method of disks. The estimated ejection fraction is 65%. There are no regional wall motion abnormalities. Doppler parameters are consistent with abnormal left ventricular relaxation (grade 1 diastolic dysfunction). RIGHT VENTRICLE: The cavity size is normal. Systolic function is normal. Right ventricular systolic pressure is within the normal range. VENTRICULAR SEPTUM: There is no evidence of a ventricular septal defect. LEFT ATRIUM: The atrium is mildly dilated. RIGHT ATRIUM: The atrium is normal in size. ATRIAL SEPTUM: Color Doppler shows no shunt. MITRAL VALVE: Moderately thickened, moderately calcified leaflets. Doppler: The findings are consistent with mild-moderate stenosis. There is mild-moderate, 1-2+ regurgitation. The valve area (LVOT continuity) is 1.7 cm^2. The mean diastolic gradient is 5 mm Hg. The peak diastolic gradient is 12 mm Hg. AORTIC VALVE: Prior repair procedures include transcatheter aortic valve replacement. There is a 23 mm Darnell Cheyanne 3 Ultra bioprosthetic valve (Darnell Cheyanne). Doppler: There is no regurgitation. Dimensionless index: 0.5. The valve area by the velocity-time integral method is 1.2 cm^2. The valve area index by the velocity-time integral method is 0.5 cm^2/m^2. The mean systolic gradient is 32 mm Hg. The peak systolic gradient is 56 mm Hg. The peak systolic velocity is 3.7 m/sec. TRICUSPID VALVE: Structurally normal valve. Doppler: There is trivial, less than 1+ regurgitation. PULMONIC VALVE: Structurally normal valve. Doppler: There is trivial, less than 1+ regurgitation. AORTA: The aorta is normal. PULMONARY ARTERY: Main pulmonary artery: Normal. PERICARDIUM: There is no pericardial effusion. SYSTEMIC VEINS: Inferior vena cava: The vessel is dilated. The IVC collapses by greater than 50% with inspiration. Measurements Value 01/02/2021 Reference Aortic root ID 2.2 cm 2.3 <4.7 Aortic root ID, STJ, ED (L) 1.9 cm 2.3 - 3.5 Aortic root ID/bsa, STJ, (L) 0.7 cm/m^2 1.1 - 1.9 ED Value 01/02/2021 Reference Ascending aorta ID, A-P, 2.1 cm 1.9 S Ascending aorta ID/bsa, 0.8 cm/m^2 0.7 A-P, S Left ventricle Value 01/02/2021 Reference LV ID, ED 5.0 cm 3.6 4.2 - 5.8 LV ID, ES 2.9 cm 2.4 2.5 - 4.0 (more content not included)... [facility] Work Phone: ECHO Complete 2D W Doppler W ColorOrdered By: Sandra Shanks on 11-28-2021 [facility] Work Phone: Echo Complete w/wo Contrasto n 11-28-2021 Echo Complete w/wo Contrast Patient Name: CHRISTOPHER SILVA Ultrasound ACCESSION EXAM DATE/TIME PROCEDURE ORDERING PROVIDER [id number] 11/28/2021 09:58 EDT Echo Complete w/wo KEATON HUERTA, SHANA Reddy Reason For Exam (Echo Complete w/wo Contrast) one year post TAVR Report TRANSTHORACIC ECHOCARDIOGRAM PATIENT: Christopher Silva STUDY DATE: 11/28/2021 [facility]#: [id number] : 1955 AGE: 66 HT/WT: 177.8 cm (70 140.6 kg in) (309.3 lb) GENDER: M BP: 122 / 81 LOCATION: [place] [address] PATIENT Outpatient [facility] STATUS: *ORDERING PHYSICIAN: * Shana Huerta *READING PHYSICIAN: * Sandra Shanks *MOBILE EQUIPMENT OPERATOR: * Demetrice Catalan INDICATIONS: 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 CONCLUSIONS SUMMARY: 1. Left ventricle: Systolic function is normal by the biplane method of disks. The estimated ejection fraction is 65%. There are no regional wall motion abnormalities. Doppler parameters are consistent with abnormal left ventricular relaxation (grade 1 diastolic dysfunction). 2. Mitral valve: Moderately thickened, moderately calcified leaflets. The findings are consistent with mild-moderate stenosis. There is mild-moderate, 1-2+ regurgitation. The mean diastolic gradient is 5 mm Hg. The peak diastolic gradient is 12 mm Hg. The valve area (LVOT continuity) is 1.7 cm^2. 3. Aortic valve: Prior repair procedures include transcatheter aortic valve replacement. There is a 23 mm Darnell Cheyanne 3 Ultra bioprosthetic valve (Darnell Cheyanne). There is no regurgitation. The peak systolic velocity is 3.7 m/sec. The mean systolic gradient is 32 mm Hg. The peak systolic gradient is 56 mm Hg. Dimensionless index: 0.5. The valve area by the velocity-time integral method is 1.2 cm^2. The valve area index by the velocity-time integral method is 0.5 cm^2/m^2. 4. Inferior vena cava: The vessel is dilated. The IVC collapses by greater than 50% with inspiration. STUDY DATA: Complete transthoracic echocardiogram. Procedure: Image quality was adequate. The study was technically limited due to body habitus and respiratory interference. M-mode, complete 2D, complete Ultrasound Report spectral Doppler, and color flow Doppler images were acquired and archived for permanent storage and are available for subsequent review. Study status: Routine. Patient status: Outpatient. FINDINGS LEFT VENTRICLE: The cavity size is normal. Wall thickness is normal. Systolic function is normal by the biplane method of disks. The estimated ejection fraction is 65%. There are no regional wall motion abnormalities. Doppler parameters are consistent with abnormal left ventricular relaxation (grade 1 diastolic dysfunction). RIGHT VENTRICLE: The cavity size is normal. Systolic function is normal. Right ventricular systolic pressure is within the normal range. VENTRICULAR SEPTUM: There is no evidence of a ventricular septal defect. LEFT ATRIUM: The atrium is mildly dilated. RIGHT ATRIUM: The atrium is normal in size. ATRIAL SEPTUM: Color Doppler shows no shunt. MITRAL VALVE: Moderately thickened, moderately calcified leaflets. Doppler: The findings are consistent with mild-moderate stenosis. There is mild-moderate, 1-2+ regurgitation. The valve area (LVOT continuity) is 1.7 cm^2. The mean diastolic gradient is 5 mm Hg. The peak diastolic gradient is 12 mm Hg. AORTIC VALVE: Prior repair procedures include transcatheter aortic valve replacement. There is a 23 mm Darnell Cheyanne 3 Ultra bioprosthetic valve (Darnell Cheyanne). Doppler: There is no regurgitation. Dimensionless index: 0.5. The valve area by the velocity-time integral method is 1.2 cm^2. The valve area index by the velocity-time integral method is 0.5 cm^2/m^2. The mean systolic gradient is 32 mm Hg. The peak systolic gradient is 56 mm Hg. The peak systolic velocity is 3.7 m/sec. TRICUSPID VALVE: Structurally normal valve. Doppler: There is trivial, less than 1+ regurgitation. PULMONIC VALVE: Structurally normal valve. Doppler: There is trivial, less than 1+ regurgitation. AORTA: The aorta is normal. PULMONARY ARTERY: Main pulmonary artery: Normal. PERICARDIUM: There is no pericardial effusion. SYSTEMIC VEINS: Inferior vena cava: The vessel is dilated. The IVC collapses by greater than 50% with inspiration. Measurements Value 01/02/2021 Reference Aortic root ID 2.2 cm 2.3 <4.7 Aortic root ID, STJ, ED (L) 1.9 cm 2.3 - 3.5 Aortic root ID/bsa, STJ, (L) 0.7 cm/m^2 1.1 - 1.9 ED Value 01/02/2021 Reference Ascendi (more content not included)... Normal [facility] Absolute lymphocyte counton 10-06-2021 Lymphocytes Auto (Unsp spec) [#/Vol] 1.36 10*3/uL 0.83-4.51 [facility] Work Phone: Basophil percentageon 2021 Basophil percentage 0 SEEN /hpf [facility] Work Phone: Basophils/100 WBC (Bld) 1.1 % 0-1 [facility] Work Phone: Chloride [Moles/Vol] 108 mmol/L 98-107 [facility] Work Phone: Eosinophils/100 WBC (Bld) 3.1 % 0-5 [facility] Work Phone: Glucose [Mass/Vol] 100 mg/dL 74-106 [facility] Work Phone: Comment on above: Fasting Glucose resu lt from 100 to 125 mg/dL suggests IMPAIRED HOMEOSTASIS per A.D.A. criteria. Neutrophils (Bld) [#/Vol] 5.2 10*3/uL 2.0-7.7 [facility] Work Phone: Neutrophils/100 WBC (Bld) 70.4 % 47-70 [facility] Work Phone: [phone] Potassium [Moles/Vol] 4.3 mmol/L 3.5-5.1 [facility] Work Phone: [phone] Sodium [Moles/Vol] 140 mmol/L 136-145 [facility] Work Phone: [phone] WBC (Bld) [#/Vol] 7.3 10*3/uL 4.4-11.0 [facility] Work Phone: Bilirubin Test strip Ql (U)o n 10-06-2021 Bilirubin Ql (U) Negative Negative [facility] Work Phone: [phone] Blood erythrocytes count (nu mber/volume)on 10-06-2021 RBC (Bld) [#/Vol] 4.89 10*6/uL 4.6-6.2 [facility] Work Phone: [phone] Blood hemoglobin measurement (mass/volume)on 10-06-2021 Hemoglobin (Bld) [Mass/Vol] 14.5 g/dL 13.0-16.5 [facility] Work Phone: Blood lymphocytes/100 leukoc yteson 10-06-2021 Lymphocytes/100 WBC (Bld) 18.6 % 19-41 [facility] Work Phone: [phone] Blood monocytes/100 leukocyt eson 10-06-2021 Monocytes/100 WBC (Bld) 6.5 % 0-10 [facility] Work Phone: Blood platelet mean volumeon 10-06-2021 Platelet mean volume (Bld) [Entitic vol] 9.7 fL 6.2-12.0 [facility] Work Phone: Determination of erythrocyte mean corpuscular volume (MCV)on 10-06-2021 MCV (RBC) [Entitic vol] 92.0 fL 80-94 [facility] Work Phone: Hematocrit Auto (Bld) [Volum e fraction]on 10-06-2021 Hematocrit (Bld) [Volume fraction] 45.0 % 40-54 [facility] Work Phone: Ketones Test strip Ql (U)on 10-06-2021 Ketones Ql (U) Negative Negative [facility] Work Phone: Laboratory - Chemistry and C hemistry - challengeon 10-06-2021 CO2 [Moles/Vol] 28.0 mmol/L 21.0-32.0 [facility] Work Phone: Urea nitrogen/Creatinine [Mass ratio] 21.0 mg/mg 10-20 [facility] Work Phone: Laboratory - Hematology and Cell countson 10-06-2021 Erythrocyte distribution width (RBC) [Entitic vol] 45.8 fL 35.1-43.9 [facility] Work Phone: Erythrocyte distribution width (RBC) [Ratio] 13.5 % 11.6-14.6 [facility] Work Phone: [phone] Immature granulocytes/100 WBC (Bld) 0.300 % 0.0-0.9 [facility] Work Phone: Comment on above: IG% - Immature Granu locytes (promyelocytes, myelocytes and metamyelocytes) > 1% indicates that a LEFT SHIFT is Present. MCH (RBC) [Entitic mass] 29.7 pg 27.0-32.0 [facility] Work Phone: Nucleated RBC/100 WBC (Bld) [Ratio] 0 % 0-5 [facility] Work Phone: MCHC Auto (RBC) [Mass/Vol]on 10-06-2021 MCHC (RBC) [Mass/Vol] 32.2 g/dL 32-36 [facility] Work Phone: Mucus LM Ql (Urine sed)on Mucus Ql (Urine sed) 0 SEEN /hpf [facility] Work Phone: Nitrite Test strip Ql (U)on 10-06-2021 Nitrite Ql (U) Negative Negative [facility] Work Phone: No Panel Informationon 10-06 Estimated Creatinine Clearance Calc 75.30 ml/min [facility] Work Phone: Estimated GFR (MDRD) Amer 131 mL/min >60 [facility] Work Phone: Comment on above: GFR Calc Estimated GFR (MDRD) Non-Af Amer 108 mL/min >60 [facility] Work Phone: Comment on above: Non- GFR Calc Platelets bldon 10-06-2021 Platelets (Bld) [#/Vol] 280 10*3/uL 150-450 [facility] Work Phone: Protein Test strip Ql (U)on 10-06-2021 Protein Ql (U) Negative Negative [facility] Work Phone: Serum or plasma calcium dougie urement (mass/volume)on 10-06-2021 Calcium [Mass/Vol] 8.3 mg/dL 8.5-10.1 [facility] Work Phone: Serum or plasma creatinine m easurement (mass/volume)on 10-06-2021 Creatinine [Mass/Vol] 0.76 mg/dL 0.70-1.30 [facility] Work Phone: Comment on above: The validity of the calculated GFR & GFRAA in patients over 70 years has not been determined. Clinical correlation is essential. Serum or plasma urea nitroge n measurement (mass/volume)on 10-06-2021 Urea nitrogen [Mass/Vol] 16 mg/dL 7-18 [facility] Work Phone: Squamous epithelial cells de tection in urine sediment by light microscopyon 10-06-2021 Epithelial cells.squamous LM Ql (Urine sed) 0 SEEN /hpf [facility] Work Phone: Thin prep Papanicolaou smear with manual screeningon 10-06-2021 Thin prep Papanicolaou smear with manual screening 4 5-15 [facility] Work Phone: Urine blood detectionon 09-11 RBC Ql (U) Negative Negative [facility] Work Phone: RBC Ql (U) 0 SEEN /hpf [facility] Work Phone: Urine clarityon 10-06-2021 Clarity (U) Clear Clear [facility] Work Phone: Urine color determinationon 10-06-2021 Color (U) Yellow Yellow [facility] Work Phone: Urine glucose detectionon Glucose Ql (U) Normal mg/dl Normal [facility] Work Phone: Urine leukocyte esterase det ection by dipstickon 10-06-2021 Leukocyte esterase Test strip Ql (U) Negative Negative [facility] Work Phone: Urine pHon 10-06-2021 pH (U) 6.0 [pH] [facility] Work Phone: Urine sediment bacteria coun t by microscopy (number/high power field)on 10-06-2021 Bacteria LM.HPF (Urine sed) [#/Area] 0 /[HPF] None Seen [facility] Work Phone: Urine specific gravity measu rementon 10-06-2021 Specific gravity (U) [Rel density] 1.015 [facility] Work Phone: Urobilinogen Auto test strip Ql (U)on 10-06-2021 Urobilinogen Ql (U) Normal mg/dl Normal [facility] Work Phone: No Panel Informationon 08-03 POC SARS CoV-2 Antigen Positive [facility] Work Phone: ECHO Complete 2D W Doppler W ColorOrdered By: Shana Huerta on 01-02-2021 TRANSTHORACIC ECHOCA RDIOGRAM PATIENT: Christopher Silva STUDY DATE: 01/02/2021 : 1955 AGE: 65 HT/WT: 177.8 cm (70 141.1 kg in) (310.4 lb) GENDER: M BP: 134 / 75 LOCATION: [place] [address] [address] STATUS: *ORDERING PHYSICIAN: * Shana Huerta *RN: * Susan NurREADING PHYSICIAN: * [employer], *MOBILE EQUIPMENT OPERATOR: * Nevin Whiteside MD [facility] INDICATIONS: Aortic stenosis, severe. CONCLUSIONS SUMMARY: 1. Aortic valve: Prior repair procedures include transcatheter aortic valve replacement. There is a 23 mm Darnell Cheyanne 3 Ultra bioprosthetic valve. The mean systolic gradient is 29 mm Hg. Dimensionless index: 0.41. The valve area by the velocity-time integral method is 1.1 cm^2. 2. Left ventricle: The cavity size is normal. Systolic function is normal by visual assessment. The estimated ejection fraction is 60%. 3. Right ventricle: The cavity size is normal. Systolic function is normal. 4. Mitral valve: The findings are consistent with mild stenosis. The valve area by pressure half-time is 1.9 cm^2. 5. Compared to the prior echocardiogram from one month ago, the higher transvalvular gradients remain similar and elevated, possibly due to vigorus LV systolic function. STUDY DATA: Complete transthoracic echocardiogram. Procedure: Image quality was suboptimal. The study was technically limited due to poor acoustic window availability, body habitus, respiratory interference, and small rib spaces. Intravenous imaging enhancement (Definity) was administered to opacify the chamber. Definity lot #: [id number]. M-mode, complete 2D, complete spectral Doppler, and color flow Doppler images were acquired and archived for permanent storage and are available for subsequent review. Study status: Routine. Patient status: Outpatient. FINDINGS LEFT VENTRICLE: Not well visualized. The cavity size is normal. There is focal basal hypertrophy. Systolic function is normal by visual assessment. The estimated ejection fraction is 60%. Unable to assess LV diastolic function due to severe mitral annular calcification RIGHT VENTRICLE: Not well visualized. The cavity size is normal. Systolic function is normal. Right ventricular systolic pressure is within the normal range. VENTRICULAR SEPTUM: There is no evidence of a ventricular septal defect. LEFT ATRIUM: Not well visualized. The atrium is normal in size. RIGHT ATRIUM: Not well visualized. The atrium is normal in size. ATRIAL SEPTUM: Not well visualized. Color Doppler shows no shunt. MITRAL VALVE: Not well visualized. Calcified annulus. Doppler: The findings are consistent with mild stenosis. There is no regurgitation. The valve area by pressure half-time is 1.9 cm^2. The valve area (LVOT continuity) is 1.6 cm^2. The mean diastolic gradient is 4 mm Hg. The peak diastolic gradient is 11 mm Hg. AORTIC VALVE: Not well visualized. Prior repair procedures include transcatheter aortic valve replacement. There is a 23 mm Darnell Cheyanne 3 Ultra bioprosthetic valve. Doppler: There is no regurgitation. Dimensionless index: 0.41. The valve area by the velocity-time integral method is 1.1 cm^2. The valve area index by the velocity-time integral method is 0.4 cm^2/m^2. The mean systolic gradient is 29 mm Hg. The peak systolic gradient is 53 mm Hg. The peak systolic velocity is 3.4 m/sec. TRICUSPID VALVE: Not well visualized. Structurally normal valve. Doppler: There is trivial, less than 1+ regurgitation. PULMONIC VALVE: Not well visualized. Structurally normal valve. Doppler: There is trivial, less than 1+ regurgitation. AORTA: The aorta is poorly visualized and normal. PULMONARY ARTERY: Main pulmonary artery: Normal. PERICARDIUM: Prominent epicardial fat is present. There is no pericardial effusion. SYSTEMIC VEINS: Not well visualized. Inferior vena cava: The vessel is normal. The IVC collapses by greater than 50% with inspiration. Measurements Value 11/27/2020 Reference Aortic root ID 2.3 cm 2.8 <4.7 Value 11/27/2020 Reference Ascending aorta ID (L) 1.9 cm 2.2 - 3.8 Ascending aorta ID/bsa, (L) 0.7 cm/m^2 1.1 - 1.9 A-P Ascending aorta ID, A-P, (more content not included)... [email or web address] Work Phone: Raymundo, [facility] Incoming Cardiology Results From Javier/Anupam - 01/02/2021 4:01 PM EDT TRANSTHORACIC ECHOCARDIOGRAM PATIENT: Christopher Silva STUDY DATE: 01/02/2021 : 1955 AGE: 65 HT/WT: 177.8 cm (70 141.1 kg in) (310.4 lb) GENDER: M BP: 134 / 75 LOCATION: [place] [address] [address] STATUS: *ORDERING PHYSICIAN: * Shana Huerta *RN: * Susan NurREADING PHYSICIAN: * Alireza, *MOBILE EQUIPMENT OPERATOR: * Nevin Whiteside MD [facility] INDICATIONS: Aortic stenosis, severe. CONCLUSIONS SUMMARY: 1. Aortic valve: Prior repair procedures include transcatheter aortic valve replacement. There is a 23 mm Darnell Cheyanne 3 Ultra bioprosthetic valve. The mean systolic gradient is 29 mm Hg. Dimensionless index: 0.41. The valve area by the velocity-time integral method is 1.1 cm^2. 2. Left ventricle: The cavity size is normal. Systolic function is normal by visual assessment. The estimated ejection fraction is 60%. 3. Right ventricle: The cavity size is normal. Systolic function is normal. 4. Mitral valve: The findings are consistent with mild stenosis. The valve area by pressure half-time is 1.9 cm^2. 5. Compared to the prior echocardiogram from one month ago, the higher transvalvular gradients remain similar and elevated, possibly due to vigorus LV systolic function. STUDY DATA: Complete transthoracic echocardiogram. Procedure: Image quality was suboptimal. The study was technically limited due to poor acoustic window availability, body habitus, respiratory interference, and small rib spaces. Intravenous imaging enhancement (Definity) was administered to opacify the chamber. Definity lot #: [id number]. M-mode, complete 2D, complete spectral Doppler, and color flow Doppler images were acquired and archived for permanent storage and are available for subsequent review. Study status: Routine. Patient status: Outpatient. FINDINGS LEFT VENTRICLE: Not well visualized. The cavity size is normal. There is focal basal hypertrophy. Systolic function is normal by visual assessment. The estimated ejection fraction is 60%. Unable to assess LV diastolic function due to severe mitral annular calcification RIGHT VENTRICLE: Not well visualized. The cavity size is normal. Systolic function is normal. Right ventricular systolic pressure is within the normal range. VENTRICULAR SEPTUM: There is no evidence of a ventricular septal defect. LEFT ATRIUM: Not well visualized. The atrium is normal in size. RIGHT ATRIUM: Not well visualized. The atrium is normal in size. ATRIAL SEPTUM: Not well visualized. Color Doppler shows no shunt. MITRAL VALVE: Not well visualized. Calcified annulus. Doppler: The findings are consistent with mild stenosis. There is no regurgitation. The valve area by pressure half-time is 1.9 cm^2. The valve area (LVOT continuity) is 1.6 cm^2. The mean diastolic gradient is 4 mm Hg. The peak diastolic gradient is 11 mm Hg. AORTIC VALVE: Not well visualized. Prior repair procedures include transcatheter aortic valve replacement. There is a 23 mm Darnell Cheyanne 3 Ultra bioprosthetic valve. Doppler: There is no regurgitation. Dimensionless index: 0.41. The valve area by the velocity-time integral method is 1.1 cm^2. The valve area index by the velocity-time integral method is 0.4 cm^2/m^2. The mean systolic gradient is 29 mm Hg. The peak systolic gradient is 53 mm Hg. The peak systolic velocity is 3.4 m/sec. TRICUSPID VALVE: Not well visualized. Structurally normal valve. Doppler: There is trivial, less than 1+ regurgitation. PULMONIC VALVE: Not well visualized. Structurally normal valve. Doppler: There is trivial, less than 1+ regurgitation. AORTA: The aorta is poorly visualized and normal. PULMONARY ARTERY: Main pulmonary artery: Normal. PERICARDIUM: Prominent epicardial fat is present. There is no pericardial effusion. SYSTEMIC VEINS: Not well visualized. Inferior vena cava: The vessel is normal. The IVC collapses by greater than 50% with inspiration. Measurements Value 11/27/2020 Reference Aortic root ID 2.3 cm 2.8 <4.7 Value 11/27/2020 Reference Ascending aorta ID (L) 1.9 cm 2.2 - 3.8 Ascending aorta ID/bsa, (L) 0.7 cm/m^2 1.1 - 1.9 A-P Ascending aorta ID, A-P, 1.9 cm 3.9 S Ascending aorta ID/bsa, 0.7 cm/m^2 1.5 A-P, S Left ventricle Value 11/27/2020 Reference LV ID, ED (L) 3.6 cm 5.2 4.2 - 5.8 (more content not included)... [employer] Work Phone: [employer] Work Phone: Echo Complete w/wo Contrasto n 01-02-2021 Echo Complete w/wo Contrast Patient Name: CHRISTOPHER SILVA Ultrasound ACCESSION EXAM DATE/TIME PROCEDURE ORDERING PROVIDER [id number] 01/02/2021 15:28 EDT Echo Complete w/wo KEATON HUERTA MICHELLE Contrast Reason For Exam (Echo Complete w/wo Contrast) aortic stenosis s/p TAVR Report TRANSTHORACIC ECHOCARDIOGRAM PATIENT: Christopher Silva STUDY DATE: 01/02/2021 : 1955 AGE: 65 HT/WT: 177.8 cm (70 141.1 kg in) (310.4 lb) GENDER: M BP: 134 / 75 LOCATION: [facility] [employer] PATIENT Outpatient [address] STATUS: *ORDERING PHYSICIAN: * Shana Huerta *RN: * Susan NurREADING PHYSICIAN: * Alireza, *MOBILE EQUIPMENT OPERATOR: * Nevin Whiteside MD [facility] INDICATIONS: Aortic stenosis, severe. CONCLUSIONS SUMMARY: 1. Aortic valve: Prior repair procedures include transcatheter aortic valve replacement. There is a 23 mm Darnell Cheyanne 3 Ultra bioprosthetic valve. The mean systolic gradient is 29 mm Hg. Dimensionless index: 0.41. The valve area by the velocity-time integral method is 1.1 cm^2. 2. Left ventricle: The cavity size is normal. Systolic function is normal by visual assessment. The estimated ejection fraction is 60%. 3. Right ventricle: The cavity size is normal. Systolic function is normal. 4. Mitral valve: The findings are consistent with mild stenosis. The valve area by pressure half-time is 1.9 cm^2. 5. Compared to the prior echocardiogram from one month ago, the higher transvalvular gradients remain similar and elevated, possibly due to vigorus LV systolic function. STUDY DATA: Complete transthoracic echocardiogram. Procedure: Image quality was suboptimal. The study was technically limited due to poor acoustic window availability, body habitus, respiratory interference, and small rib spaces. Intravenous imaging enhancement (Definity) was administered to opacify the chamber. Definity lot #: [id number]. M-mode, complete 2D, complete spectral Doppler, and color flow Doppler images were acquired and archived for permanent storage and are available for Ultrasound Report subsequent review. Study status: Routine. Patient status: Outpatient. FINDINGS LEFT VENTRICLE: Not well visualized. The cavity size is normal. There is focal basal hypertrophy. Systolic function is normal by visual assessment. The estimated ejection fraction is 60%. Unable to assess LV diastolic function due to severe mitral annular calcification RIGHT VENTRICLE: Not well visualized. The cavity size is normal. Systolic function is normal. Right ventricular systolic pressure is within the normal range. VENTRICULAR SEPTUM: There is no evidence of a ventricular septal defect. LEFT ATRIUM: Not well visualized. The atrium is normal in size. RIGHT ATRIUM: Not well visualized. The atrium is normal in size. ATRIAL SEPTUM: Not well visualized. Color Doppler shows no shunt. MITRAL VALVE: Not well visualized. Calcified annulus. Doppler: The findings are consistent with mild stenosis. There is no regurgitation. The valve area by pressure half-time is 1.9 cm^2. The valve area (LVOT continuity) is 1.6 cm^2. The mean diastolic gradient is 4 mm Hg. The peak diastolic gradient is 11 mm Hg. AORTIC VALVE: Not well visualized. Prior repair procedures include transcatheter aortic valve replacement. There is a 23 mm Darnell Cheyanne 3 Ultra bioprosthetic valve. Doppler: There is no regurgitation. Dimensionless index: 0.41. The valve area by the velocity-time integral method is 1.1 cm^2. The valve area index by the velocity-time integral method is 0.4 cm^2/m^2. The mean systolic gradient is 29 mm Hg. The peak systolic gradient is 53 mm Hg. The peak systolic velocity is 3.4 m/sec. TRICUSPID VALVE: Not well visualized. Structurally normal valve. Doppler: There is trivial, less than 1+ regurgitation. PULMONIC VALVE: Not well visualized. Structurally normal valve. Doppler: There is trivial, less than 1+ regurgitation. AORTA: The aorta is poorly visualized and normal. PULMONARY ARTERY: Main pulmonary artery: Normal. PERICARDIUM: Prominent epicardial fat is present. There is no pericardial effusion. SYSTEMIC VEINS: Not well visualized. Inferior vena cava: The vessel is normal. The IVC collapses by greater than 50% with inspiration. Measurements Value 11/27/2020 Reference Aortic root ID 2.3 cm 2.8 <4.7 Value 11/27/2020 Reference Ascending aorta ID (L) 1.9 cm 2.2 - 3.8 Ascending aorta ID/bsa, (L) 0.7 cm/m^2 1.1 - 1.9 A-P Ascending aorta ID, A (more content not included)... Normal [employer] Basic Metabolic PanelOrdered By: Shana Huerta on 11-27-2020 Anion gap [Moles/Vol] 5 mmol/L 3 - 13 mmol/L [employer] Work Phone: Calcium [Mass/Vol] 8.4 mg/dL 8.4 - 10. 4 mg/dL [employer] Work Phone: Chloride [Moles/Vol] 106 mmol/L 98 - 10 7 mmol/L [employer] Work Phone: CO2 [Moles/Vol] 27 mmol/L 22 - 30 mmol/L [facility] Work Phone: 1 Creatinine [Mass/Vol] 0.82 mg/dL 0.52 - 1.25 mg/dL [facility] Work Phone: EGFR IF NonAfrican Maldivian >90.0 >60 mL/min [facility] Work Phone: Comment on above: KDIGO guidelines pro vide the following GFR categories: Stage GFR(ml/min/1.73 m2) Terms G1 >=90 Normal or high G2 60-89 Mildly decreased* G3a 45-59 Mildly to moderately decreased G3b 30-44 Moderately to severely decreased G4 15-29 Severely decreased G5 <15 Kidney failure *Relative to young adult level. In the absence of evidence of kidney damage, neither GFR category G1 nor G2 fulfill the criteria for CKD. The CKD-EPI equation is validated in individuals 18 years of age and older. Currently the best equation for estimating glomerular filtration rate (GFR) from serum creatinine in children is the Bedside Sainz equation. It is less accurate in patients with extremes of muscle mass, restriction of dietary protein, ingestion of creatine, extra-renal metabolism of creatinine, or treatment with medications that affect renal tubular creatinine secretion. GFR/1.73 sq M.predicted among blacks MDRD (S/P/Bld) [Vol rate/Area] mL/min/{1.73_m2} >60 mL/min [facility] Work Phone: Glucose [Mass/Vol] 99 mg/dL 70 - 100 mg/dL [facility] Work Phone: Potassium [Moles/Vol] 4.6 mmol/L 3.5 - 5.1 mmol/L [facility] Work Phone: Sodium [Moles/Vol] 138 mmol/L 135 - 145 mmol/L [facility] Work Phone: Urea nitrogen (BldV) [Mass/Vol] 16 mg/dL 7 - 20 mg/dL [facility] Work Phone: Test Performed by [facility], [address] [place] [id number] [facility] Work Phone: [facility] Work Phone: CBCOrdered By: Shana crowley on 11-27-2020 Hematocrit (Bld) [Volume fraction] 42.9 % 40.0 - 52.0 % [facility] Work Phone: [phone] Hemoglobin.gastroint estinal spec 1 Ql (Stl) 14.7 g/dL 13.0 - 18.0 g/dL [facility] Work Phone: 1 MCH (RBC) [Entitic mass] 30.8 pg 26.0 - 34.0 pg [facility] Work Phone: MCHC (RBC) [Mass/Vol] 34.2 % 32.0 - 36.0 % [facility] Work Phone: 1 MCV (RBC) [Entitic vol] 90.2 fL 80.0 - 98.0 fL [facility] Work Phone: Platelet distribution width (Bld) [Ratio] 12.9 % 11.5 - 14.5 % [facility] Work Phone: 1 Platelet mean volume (Bld) [Entitic vol] 8.3 fL 7.4 - 10.4 fL [facility] Work Phone: 1) Platelets (Bld) [#/Vol] 180 10*3/uL 140 - 440 10*3/uL [facility] Work Phone: [phone] 222 RBC (Bld) [#/Vol] 4.75 10*6/uL 4.40 - 5.9 0 10*6/uL [facility] Work Phone: [phone] WBC (Bld) [#/Vol] 7.6 10*3/uL 3.6 - 10.7 10*3/uL [facility] Work Phone: 1 Test Performed by [facility], [address] [place] [id number] [facility] Work Phone: 1 [facility] Work Phone: 1 ECHO Complete 2D W Doppler W ColorOrdered By: Shana Huerta on 11-27-2020 TRANSTHORACIC ECHOCA RDIOGRAM PATIENT: Christopher Silva STUDY DATE: 11/27/2020 : 1955 AGE: 65 HT/WT: 177.8 cm (70 139.3 kg (306.4 in) lb) GENDER: M BP: 121 / 67 LOCATION: [facility] PATIENT Inpatient main STATUS: *ORDERING PHYSICIAN: * Jae, *FELLOW: * Bernard Morgan MD *READING PHYSICIAN: * Kelsey Torres, *MOBILE EQUIPMENT OPERATOR: * Kristin Oh MD, [facility], [facility] INDICATIONS: TAVR assessment. POD 1 TAVR. 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 Transcatheter aortic valve replacement. Aortic valve replacement with a 23 mmbioprosthetic valve. CONCLUSIONS SUMMARY: 1. Left ventricle: Systolic function is normal to hyperdynamic by the biplane method of disks. The estimated ejection fraction is 68%. 2. Right ventricle: The cavity size is mildly dilated. Systolic function is normal. 3. Aortic valve: POD1 transcatheter aortic valve replacement. There is a well-seated 23 mm Darnell Cheyanne 3 Ultra bioprosthetic valve. Gradients are increased compared to limited echo on day of implant. This may be related to vigorous LV function. Correlate clinically. Transvalvular velocity is increased more than expected, due to high cardiac output. There is no perivalvular regurgitation. The mean systolic gradient is 25 mm Hg. The peak systolic gradient is 44 mm Hg. Dimensionless index: 0.47. Accel time 100 ms. The valve area by the velocity-time integral method is 1.4 cm^2. STUDY DATA: Complete transthoracic echocardiogram. Procedure: Image quality was poor. The study was technically limited due to body habitus. Intravenous imaging enhancement (Definity) was administered. Definity lot #: [id number]. M-mode, complete 2D, complete spectral Doppler, and color flow Doppler images were acquired and archived for permanent storage and are available for subsequent review. Study status: Routine. Patient status: Inpatient. FINDINGS LEFT VENTRICLE: The cavity size is normal. Wall thickness is mildly increased. Systolic function is normal to hyperdynamic by the biplane method of disks. The estimated ejection fraction is 68%. There are no regional wall motion abnormalities. Doppler parameters are consistent with abnormal left ventricular relaxation (grade 1 diastolic dysfunction). RIGHT VENTRICLE: The cavity size is mildly dilated. Systolic function is normal. Right ventricular systolic pressure is mildly increased. VENTRICULAR SEPTUM: Abnormal septal motion due to intraventricular conduction delay. There is no evidence of a ventricular septal defect. LEFT ATRIUM: The atrium is mildly dilated. RIGHT ATRIUM: The atrium is mildly dilated. ATRIAL SEPTUM: Color Doppler shows no shunt. MITRAL VALVE: Moderately to severely calcified annulus. Doppler: The findings are consistent with mild stenosis. There is trivial, less than 1+ regurgitation. The valve area by pressure half-time is 2.0 cm^2. The valve area (LVOT continuity) is 1.5 cm^2. The mean diastolic gradient is 3 mm Hg. The peak diastolic gradient is 8 mm Hg. AORTIC VALVE: Prosthetic leaflets not well visualized. POD1 transcatheter aortic valve replacement. There is a well-seated 23 mm Darnell Cheyanne 3 Ultra bioprosthetic valve. Normal thickness leaflets. Doppler: Transvalvular velocity is increased more than expected, due to high cardiac output. There is no perivalvular regurgitation. Dimensionless index: 0.47. Accel time 100 ms. The valve area by the velocity-time integral method is 1.4 cm^2. The valve area index by the velocity-time integral method is 0.5 cm^2/m^2. The mean systolic gradient is 25 mm Hg. The peak systolic gradient is 44 mm Hg. The peak systolic velocity is 3.3 m/sec. TRICUSPID VALVE: Not well visualized. Structurally normal valve. Doppler: There is trivial, less than 1+ regurgitation. PULMONIC VALVE: Not well visualized. Structurally normal valve. Doppler: There is trivial, less than 1+ regurgitation. AORTA: The aorta is normal. PULMONARY ARTERY: Main pulmonary artery: Normal. PERICARDIUM: There is no pericardial effusion. SYSTEMIC VEINS: Well visualized. Inferior vena cava: The vessel is dilated. The IVC collapses by greater than 50% with inspiration. Measurements Value (more content not included)... [facility] Work Phone: Raymundo, [facility] Incoming Cardiology Results From [facility] - 11/27/2020 11:44 AM EDT TRANSTHORACIC ECHOCARDIOGRAM PATIENT: Christopher Silva STUDY DATE: 11/27/2020 : 1955 AGE: 65 HT/WT: 177.8 cm (70 139.3 kg (306.4 in) lb) GENDER: M BP: 121 / 67 LOCATION: [facility] PATIENT Inpatient main STATUS: *ORDERING PHYSICIAN: * Jae, *FELLOW: * Bernard Morgan MD *READING PHYSICIAN: * Kelsey Torres, *MOBILE EQUIPMENT OPERATOR: * Kristin Oh MD, [facility], AE INDICATIONS: TAVR assessment. POD 1 TAVR. 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 Transcatheter aortic valve replacement. Aortic valve replacement with a 23 mmbioprosthetic valve. CONCLUSIONS SUMMARY: 1. Left ventricle: Systolic function is normal to hyperdynamic by the biplane method of disks. The estimated ejection fraction is 68%. 2. Right ventricle: The cavity size is mildly dilated. Systolic function is normal. 3. Aortic valve: POD1 transcatheter aortic valve replacement. There is a well-seated 23 mm Darnell Cheyanne 3 Ultra bioprosthetic valve. Gradients are increased compared to limited echo on day of implant. This may be related to vigorous LV function. Correlate clinically. Transvalvular velocity is increased more than expected, due to high cardiac output. There is no perivalvular regurgitation. The mean systolic gradient is 25 mm Hg. The peak systolic gradient is 44 mm Hg. Dimensionless index: 0.47. Accel time 100 ms. The valve area by the velocity-time integral method is 1.4 cm^2. STUDY DATA: Complete transthoracic echocardiogram. Procedure: Image quality was poor. The study was technically limited due to body habitus. Intravenous imaging enhancement (Definity) was administered. Definity lot #: [id number]. M-mode, complete 2D, complete spectral Doppler, and color flow Doppler images were acquired and archived for permanent storage and are available for subsequent review. Study status: Routine. Patient status: Inpatient. FINDINGS LEFT VENTRICLE: The cavity size is normal. Wall thickness is mildly increased. Systolic function is normal to hyperdynamic by the biplane method of disks. The estimated ejection fraction is 68%. There are no regional wall motion abnormalities. Doppler parameters are consistent with abnormal left ventricular relaxation (grade 1 diastolic dysfunction). RIGHT VENTRICLE: The cavity size is mildly dilated. Systolic function is normal. Right ventricular systolic pressure is mildly increased. VENTRICULAR SEPTUM: Abnormal septal motion due to intraventricular conduction delay. There is no evidence of a ventricular septal defect. LEFT ATRIUM: The atrium is mildly dilated. RIGHT ATRIUM: The atrium is mildly dilated. ATRIAL SEPTUM: Color Doppler shows no shunt. MITRAL VALVE: Moderately to severely calcified annulus. Doppler: The findings are consistent with mild stenosis. There is trivial, less than 1+ regurgitation. The valve area by pressure half-time is 2.0 cm^2. The valve area (LVOT continuity) is 1.5 cm^2. The mean diastolic gradient is 3 mm Hg. The peak diastolic gradient is 8 mm Hg. AORTIC VALVE: Prosthetic leaflets not well visualized. POD1 transcatheter aortic valve replacement. There is a well-seated 23 mm Darnell Cheyanne 3 Ultra bioprosthetic valve. Normal thickness leaflets. Doppler: Transvalvular velocity is increased more than expected, due to high cardiac output. There is no perivalvular regurgitation. Dimensionless index: 0.47. Accel time 100 ms. The valve area by the velocity-time integral method is 1.4 cm^2. The valve area index by the velocity-time integral method is 0.5 cm^2/m^2. The mean systolic gradient is 25 mm Hg. The peak systolic gradient is 44 mm Hg. The peak systolic velocity is 3.3 m/sec. TRICUSPID VALVE: Not well visualized. Structurally normal valve. Doppler: There is trivial, less than 1+ regurgitation. PULMONIC VALVE: Not well visualized. Structurally normal valve. Doppler: There is trivial, less than 1+ regurgitation. AORTA: The aorta is normal. PULMONARY ARTERY: Main pulmonary artery: Normal. PERICARDIUM: There is no pericardial effusion. SYSTEMIC VEINS: Well visualized. Inferior vena cava: The vessel is dilated. The IVC collapses by greater than 50% with inspiration. Measurements Value 11/26/2020 Reference Aortic root ID 2.8 cm <4.5 Value 11/26 (more content not included)... [employer] Work Phone: [phone] [employer] Work Phone: [phone] Basic Metabolic PanelOrdered By: Shana Huerta on 11-26-2020 Anion gap [Moles/Vol] 6 mmol/L 3 - 13 mmol/L [employer] Work Phone: [phone] Calcium [Mass/Vol] 8.0 mg/dL Low 8.4 - 10. 4 mg/dL [employer] Work Phone: [phone] Chloride [Moles/Vol] 110 mmol/L High 98 - 10 7 mmol/L [employer] Work Phone: [phone] CO2 [Moles/Vol] 25 mmol/L 22 - 30 mmol/L [employer] Work Phone: [phone] Creatinine [Mass/Vol] 0.68 mg/dL 0.52 - 1.25 mg/dL [employer] Work Phone: [phone] EGFR IF NonAfrican Maldivian >90.0 >60 mL/min [employer] Work Phone: [phone] Comment on above: KDIGO guidelines pro vide the following GFR categories: Stage GFR(ml/min/1.73 m2) Terms G1 >=90 Normal or high G2 60-89 Mildly decreased* G3a 45-59 Mildly to moderately decreased G3b 30-44 Moderately to severely decreased G4 15-29 Severely decreased G5 <15 Kidney failure *Relative to young adult level. In the absence of evidence of kidney damage, neither GFR category G1 nor G2 fulfill the criteria for CKD. The CKD-EPI equation is validated in individuals 18 years of age and older. Currently the best equation for estimating glomerular filtration rate (GFR) from serum creatinine in children is the Bedside Sainz equation. It is less accurate in patients with extremes of muscle mass, restriction of dietary protein, ingestion of creatine, extra-renal metabolism of creatinine, or treatment with medications that affect renal tubular creatinine secretion. GFR/1.73 sq M.predicted among blacks MDRD (S/P/Bld) [Vol rate/Area] mL/min/{1.73_m2} >60 mL/min [email or web address] Work Phone: Glucose [Mass/Vol] 86 mg/dL 70 - 100 mg/dL [email or web address] Work Phone: Interpretation and review of laboratory results Abnormal [facility] Work Phone: Potassium [Moles/Vol] 3.6 mmol/L 3.5 - 5.1 mmol/L [facility] Work Phone: Sodium [Moles/Vol] 140 mmol/L 135 - 145 mmol/L [facility] Work Phone: Urea nitrogen (BldV) [Mass/Vol] 15 mg/dL 7 - 20 mg/dL [email or web address] Work Phone: Test Performed by [facility], [address] [place] [id number] [facility] Work Phone: [email or web address] Work Phone: CBCOrdered By: Shana crowley on 11-26-2020 Hematocrit (Bld) [Volume fraction] 39.4 % Low 40.0 - 52.0 % [facility] Work Phone: [phone] Hemoglobin.gastroint estinal spec 1 Ql (Stl) 13.4 g/dL 13.0 - 18.0 g/dL [email or web address] Work Phone: [phone] Comment on above: REPEATED Interpretation and review of laboratory results Abnormal [facility] Work Phone: 1() MCH (RBC) [Entitic mass] 31.1 pg 26.0 - 34.0 pg [facility] Work Phone: [phone] MCHC (RBC) [Mass/Vol] 34.0 % 32.0 - 36.0 % [facility] Work Phone: 1() MCV (RBC) [Entitic vol] 91.4 fL 80.0 - 98.0 fL [facility] Work Phone: 1() Platelet distribution width (Bld) [Ratio] 12.4 % 11.5 - 14.5 % [email or web address] Work Phone: 1() Platelet mean volume (Bld) [Entitic vol] 8.5 fL 7.4 - 10.4 fL [email or web address] Work Phone: 1() Platelets (Bld) [#/Vol] 183 10*3/uL 140 - 440 10*3/uL [facility] Work Phone: [phone] RBC (Bld) [#/Vol] 4.31 10*6/uL Low 4.40 - 5.9 0 10*6/uL [email or web address] Work Phone: [phone] WBC (Bld) [#/Vol] 6.2 10*3/uL 3.6 - 10.7 10*3/uL [email or web address] Work Phone: [phone] Test Performed by [facility], [address] [place] [id number] [facility] Work Phone: 1() [facility] Work Phone: [phone] ECHOCARDIOGRAM LIMITEDOrdere d By: Saran Day on 11-26-2020 LIMITED TRANSTHORACI C ECHOCARDIOGRAM Perioperative - TAVR PATIENT: Christopher Silva STUDY DATE: 11/26/2020 : 1955 AGE: 65 HT/WT: 177.8 cm (70 139.3 kg (306.4 in) lb) GENDER: M BP: 147 / 100 LOCATION: [facility] PATIENT Inpatient main STATUS: *ORDERING PHYSICIAN: * Saran Day MD *READING PHYSICIAN: * Sarah *MOBILE EQUIPMENT OPERATOR: * Jessica León MD [facility] INDICATIONS: Aortic stenosis/ TAVR. 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 CONCLUSIONS SUMMARY: 1. Aortic valve: There is a 23 mm Darnell Cheyanne 3 Ultra bioprosthetic valve. 2. Successful TAVR. The trileaflet bioprosthesis is well-seated with normal leaflet excursion. There is no perivalvular regurgitation. 3. Technically difficult study. The cardiac structures including aortic valve were poorly visualized. STUDY DATA: Transthoracic echocardiography, limited study. Procedure: Image quality was poor. The study was technically limited due to poor acoustic window availability, restricted patient mobility, body habitus, respiratory interference, and supine position. Limited 2D, limited spectral Doppler, and color flow Doppler images were acquired and archived for permanent storage and are available for subsequent review. Study status: Routine. Patient status: Inpatient. Location: Hybrid operating room. FINDINGS LEFT VENTRICLE: Poorly visualized. Systolic function is normal by visual assessment. MITRAL VALVE: Not well visualized. Calcified annulus. Doppler: There is no significant regurgitation. AORTIC VALVE: Not well visualized. There is a 23 mm Darnell Cheyanne 3 Ultra bioprosthetic valve. Doppler: There is no significant regurgitation. There is no perivalvular regurgitation. Dimensionless index: 0.86. The valve area by the velocity-time integral method is 2.7 cm^2. The valve area index by the velocity-time integral method is 1 cm^2/m^2. The mean systolic gradient is 3 mm Hg. The peak systolic gradient is 7 mm Hg. The peak systolic velocity is 1.3 m/sec. Pre-TAVR: ANGELICA: 0.9 cm^2. Peak gradient: 43 mm Hg. Mean gradient: 28 mm Hg. Peak velocity: 3.2 m/sec. Post-TAVR: ANGELICA: 2.3 cm^2. Peak gradient: 6 mm Hg. Mean gradient: 3 mm Hg. Peak velocity: 1.3 m/sec. TRICUSPID VALVE: Not well visualized. Doppler: There is no significant regurgitation. AORTA: The aorta is not visualized. PERICARDIUM: There is no pericardial effusion. Measurements LVOT Value LVOT ID, A-P 2.0 cm LVOT mean velocity, S 0.7 m/sec LVOT peak gradient, S 4 mm Hg Stroke volume (SV), LVOT DP 74 ml Stroke index (SV/bsa), LVOT DP 28 ml/m^2 Aortic valve Value Aortic valve peak velocity, S 1.3 m/sec Aortic valve mean velocity, S 0.9 m/sec Aortic mean gradient, S 3 mm Hg Aortic peak gradient, S 7 mm Hg DI 0.86 Aortic valve area, VTI 2.7 cm^2 Aortic valve area/bsa, VTI 1 cm^2/m^2 Legend: (L) and (H) kelsey values outside specified reference range. Electronically signed by Mau Smith MD 11/26/2020 09:20 Prior Signatures: [employer] Work Phone: [facility], [email or web address] Incoming Cardiology Results From [facility] - 11/26/2020 9:20 AM EDT LIMITED TRANSTHORACIC ECHOCARDIOGRAM Perioperative - TAVR PATIENT: Christopher Silva STUDY DATE: 11/26/2020 : 1955 AGE: 65 HT/WT: 177.8 cm (70 139.3 kg (306.4 in) lb) GENDER: M BP: 147 / 100 LOCATION: [facility] PATIENT Inpatient main STATUS: *ORDERING PHYSICIAN: * Saran Day MD *READING PHYSICIAN: * Sarah, *MOBILE EQUIPMENT OPERATOR: * Jessica León MD [facility] INDICATIONS: Aortic stenosis/ TAVR. 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 CONCLUSIONS SUMMARY: 1. Aortic valve: There is a 23 mm Darnell Cheyanne 3 Ultra bioprosthetic valve. 2. Successful TAVR. The trileaflet bioprosthesis is well-seated with normal leaflet excursion. There is no perivalvular regurgitation. 3. Technically difficult study. The cardiac structures including aortic valve were poorly visualized. STUDY DATA: Transthoracic echocardiography, limited study. Procedure: Image quality was poor. The study was technically limited due to poor acoustic window availability, restricted patient mobility, body habitus, respiratory interference, and supine position. Limited 2D, limited spectral Doppler, and color flow Doppler images were acquired and archived for permanent storage and are available for subsequent review. Study status: Routine. Patient status: Inpatient. Location: Hybrid operating room. FINDINGS LEFT VENTRICLE: Poorly visualized. Systolic function is normal by visual assessment. MITRAL VALVE: Not well visualized. Calcified annulus. Doppler: There is no significant regurgitation. AORTIC VALVE: Not well visualized. There is a 23 mm Darnell Cheyanne 3 Ultra bioprosthetic valve. Doppler: There is no significant regurgitation. There is no perivalvular regurgitation. Dimensionless index: 0.86. The valve area by the velocity-time integral method is 2.7 cm^2. The valve area index by the velocity-time integral method is 1 cm^2/m^2. The mean systolic gradient is 3 mm Hg. The peak systolic gradient is 7 mm Hg. The peak systolic velocity is 1.3 m/sec. Pre-TAVR: ANGELICA: 0.9 cm^2. Peak gradient: 43 mm Hg. Mean gradient: 28 mm Hg. Peak velocity: 3.2 m/sec. Post-TAVR: ANGELICA: 2.3 cm^2. Peak gradient: 6 mm Hg. Mean gradient: 3 mm Hg. Peak velocity: 1.3 m/sec. TRICUSPID VALVE: Not well visualized. Doppler: There is no significant regurgitation. AORTA: The aorta is not visualized. PERICARDIUM: There is no pericardial effusion. Measurements LVOT Value LVOT ID, A-P 2.0 cm LVOT mean velocity, S 0.7 m/sec LVOT peak gradient, S 4 mm Hg Stroke volume (SV), LVOT DP 74 ml Stroke index (SV/bsa), LVOT DP 28 ml/m^2 Aortic valve Value Aortic valve peak velocity, S 1.3 m/sec Aortic valve mean velocity, S 0.9 m/sec Aortic mean gradient, S 3 mm Hg Aortic peak gradient, S 7 mm Hg DI 0.86 Aortic valve area, VTI 2.7 cm^2 Aortic valve area/bsa, VTI 1 cm^2/m^2 Legend: (L) and (H) kelsey values outside specified reference range. Electronically signed by Mau Smith MD 11/26/2020 09:20 Prior Signatures: [employer] Work Phone: [facility] Work Phone: OPERATIVE REPORTOrdered By: Scanning on 11-26-2020 [facility] Work Phone: Laboratory - Microbiology an d Antimicrobial susceptibility Bacteria identified Cx Nom (Bld) No growth in 5 days. [facility] Work Phone: No Panel Information Nasal Screen MRSA/MSSA [facility] Work Phone: Vital Signs Date Time Vital Sign Value Performing Clinician Jakub urena 12-13-2024 06:27-0400 Body height 175.[address] Aury Schneider DO Work Phone: [facility] 12-13-2024 06:27-0400 Body mass index (BMI) [Ratio] 46.3 kg/m2 Dr. Aury Schneider DO Work Phone: [facility] 12-13-2024 06:27-0400 Body weight 142.[address] Aury Schneider DO Work Phone: [facility] 12-13-2024 06:27-0400 Diastolic blood pressure 83 mm[Hg] Dr. Aury Schneider DO Work Phone: [facility] 12-13-2024 06:27-0400 Heart rate 95 /min Dr. Aury Schneider DO Work Phone: [facility] 12-13-2024 06:27-0400 Respiratory rate 20 /min Dr. Aury Schneider DO Work Phone: [facility] 12-13-2024 06:27-0400 SaO2% (BldA) [Mass fraction] 94 % Dr. Aury Schneider DO Work Phone: [facility] 12-13-2024 06:27-0400 Systolic blood pressure 154 mm[Hg] Dr. Aury Schneider DO Work Phone: [facility] 11-02-2024 09:03-0400 Body temperature 97.8 [degF] Dr. Aury Schneider DO Work Phone: [facility] 11-02-2024 09:03-0400 Body weight 146.[address] Aury Schneider DO Work Phone: [facility] 11-02-2024 09:03-0400 Diastolic blood pressure 73 mm[Hg] Dr. Aury Schneider DO Work Phone: [facility] 11-02-2024 09:03-0400 Heart rate 85 /min Dr. Aury Schneider DO Work Phone: [facility] 11-02-2024 09:03-0400 Respiratory rate 15 /min Dr. Aury Schneider DO Work Phone: [facility] 11-02-2024 09:03-0400 SaO2% (BldA) [Mass fraction] 98 % Dr. Aury Schneider DO Work Phone: [facility] 11-02-2024 09:03-0400 Systolic blood pressure 107 mm[Hg] Dr. Aury Schneider DO Work Phone: [facility] 10-14-2024 08:13-0400 Body height 175.[address] Aury Schneider DO Work Phone: [facility] 07-25-2024 12:24-0500 Body temperature 98.2 [degF] Dr. Aury Schneider DO Work Phone: [facility] 07-25-2024 12:24-0500 Heart rate 86 /min Dr. Aury Schneider DO Work Phone: [facility] 07-25-2024 12:24-0500 Respiratory rate 17 /min Dr. Aury Schneider DO Work Phone: [facility] 07-25-2024 12:24-0500 SaO2% (BldA) [Mass fraction] 95 % Dr. Aury Schneider DO Work Phone: [facility] 05-23-2024 10:10-0500 Diastolic Blood Pressure Non-Invasive 72 mm[Hg] DR THOMAS IBRAHIM MD [facility] 05-23-2024 10:10-0500 Respiratory rate 17 /min DR THOMAS IBRAHIM MD [facility] 05-23-2024 10:10-0500 Systolic Blood Pressure Non-Invasive 101 mm[Hg] DR THOMAS IBRAHIM MD [facility] 05-23-2024 10:05-0500 Diastolic Blood Pressure Non-Invasive 61 mm[Hg] DR THOMAS IBRAHIM MD [facility] 05-23-2024 10:05-0500 Heart rate 62 /min DR THOMAS IBRAHIM MD [facility] 05-23-2024 10:05-0500 Respiratory rate 16 /min DR THOMAS IBRAHIM MD [facility] 05-23-2024 10:05-0500 Systolic Blood Pressure Non-Invasive 97 mm[Hg] DR THOMAS IBRAHIM MD [facility] 05-23-2024 10:01-0500 Diastolic Blood Pressure Non-Invasive 61 mm[Hg] DR THOMAS IBRAHIM MD [facility] 05-23-2024 10:01-0500 Heart rate 68 /min DR THOMAS IBRAHIM MD [facility] 05-23-2024 10:01-0500 Respiratory rate 16 /min DR THOMAS IBRAHIM MD [facility] 05-23-2024 10:01-0500 Systolic Blood Pressure Non-Invasive 88 mm[Hg] DR THOMAS IBRAHIM MD [facility] 05-23-2024 09:54-0500 Heart rate 75 /min DR THOMAS IBRAHIM MD [facility] 05-23-2024 09:42-0500 Body temperature 97.7 [degF] DR THOMAS IBRAHIM MD [facility] 05-23-2024 09:40-0500 Respiratory Rate - Anes 0 br/min DR THOMAS IBRAHIM MD [facility] 05-23-2024 09:35-0500 Respiratory Rate - Anes 21 br/min DR THOMAS IBRAHIM MD [facility] 05-23-2024 09:30-0500 Respiratory Rate - Anes 10 br/min DR THOMAS IBRAHIM MD [facility] 05-23-2024 07:54-0500 Body height [address] THOMAS IBRAHIM MD [facility] 05-23-2024 07:54-0500 Body temperature 97.52 [degF] DR THOMAS IBRAHIM MD [facility] 05-23-2024 07:54-0500 Body weight 142.[address] THOMAS IBRAHIM MD [facility] 05-23-2024 07:54-0500 Heart rate 69 /min DR THOMAS IBRAHIM MD [facility] 05-23-2024 07:45-0500 Body height [address] THOMAS IBRAHIM MD [facility] 09-24-2023 13:17-0400 Body temperature 97.5 [degF] Dr. Aury Schneider Work Phone: [facility] 09-24-2023 13:17-0400 Diastolic blood pressure 60 mm[Hg] Dr. Aury Schneider Work Phone: [facility] 09-24-2023 13:17-0400 Heart rate 68 /min Dr. Aury Schneider Work Phone: [facility] 09-24-2023 13:17-0400 Respiratory rate 16 /min Dr. Aury Schneider Work Phone: [facility] 09-24-2023 13:17-0400 SaO2% (BldA) [Mass fraction] 94 % Dr. Aury Schneider Work Phone: [facility] 09-24-2023 13:17-0400 Systolic blood pressure 107 mm[Hg] Dr. Aury Schneider Work Phone: [facility] 09-24-2023 08:11-0400 Body height 175.[address] Aury Schneider Work Phone: [facility] 09-24-2023 08:11-0400 Body mass index (BMI) [Ratio] 44.7 kg/m2 Dr. Aury Schneider Work Phone: [facility] 09-24-2023 08:11-0400 Body weight 137.[address] Aury Schneider Work Phone: [facility] 09-18-2023 09:06-0500 Body mass index (BMI) [Ratio] 47 kg/m2 Dr. Aury Schneider Work Phone: [facility] 09-18-2023 09:06-0500 Body weight 140.[address] Aury Schneider Work Phone: [facility] 09-18-2023 09:06-0500 Diastolic blood pressure 78 mm[Hg] Dr. Aury Schneider Work Phone: [facility] 09-18-2023 09:06-0500 Heart rate 73 /min Dr. Aury Schneider Work Phone: [facility] 09-18-2023 09:06-0500 Respiratory rate 20 /min Dr. Aury Schneider Work Phone: [facility] 09-18-2023 09:06-0500 SaO2% (BldA) [Mass fraction] 96 % Dr. Aury Schneider Work Phone: [facility] 09-18-2023 09:06-0500 Systolic blood pressure 133 mm[Hg] Dr. Aury Schneider Work Phone: [facility] 09-11-2023 02:33-0500 Body temperature 97.8 [degF] Dr. Aury Schneider Work Phone: [facility] 09-11-2023 02:33-0500 Diastolic blood pressure 62 mm[Hg] Dr. Aury Schneider Work Phone: [facility] 09-11-2023 02:33-0500 Heart rate 73 /min Dr. Aury Schneider Work Phone: [facility] 09-11-2023 02:33-0500 Respiratory rate 16 /min Dr. Aury Schneider Work Phone: [facility] 09-11-2023 02:33-0500 SaO2% (BldA) [Mass fraction] 96 % Dr. Aury Schneider Work Phone: [facility] 09-11-2023 02:33-0500 Systolic blood pressure 112 mm[Hg] Dr. Aury Schneider Work Phone: [facility] 09-10-2023 22:51-0500 Body height 172.[address] Aury Schneider Work Phone: [facility] 09-10-2023 22:51-0500 Body mass index (BMI) [Ratio] 47 kg/m2 Dr. Aury Schneider Work Phone: [facility] 09-10-2023 22:51-0500 Body weight 140.[address] Aury Schneider Work Phone: [facility] 08-24-2023 09:11-0500 Body temperature 98.4 [degF] Dr. Aury Schneider Work Phone: [facility] 08-24-2023 09:11-0500 Diastolic blood pressure 86 mm[Hg] Dr. Aury Schneider Work Phone: [facility] 08-24-2023 09:11-0500 Heart rate 62 /min Dr. Aury Schneider Work Phone: [facility] 08-24-2023 09:11-0500 Respiratory rate 14 /min Dr. Aury Schneider Work Phone: [facility] 08-24-2023 09:11-0500 SaO2% (BldA) [Mass fraction] 95 % Dr. Aury Schneider Work Phone: [facility] 08-24-2023 09:11-0500 Systolic blood pressure 140 mm[Hg] Dr. Aury Schneider Work Phone: [facility] 05-12-2023 10:45-0400 Body height 172.[address] Aury Schneider Work Phone: [facility] 05-12-2023 10:40-0400 Body mass index (BMI) [Ratio] 43.9 kg/m2 Dr. Aury Schneider Work Phone: [facility] 05-12-2023 10:40-0400 Body weight 131.[address] Aury Schneider Work Phone: [facility] 05-12-2023 10:40-0400 Diastolic blood pressure 67 mm[Hg] Dr. Aury Schneider Work Phone: [facility] 05-12-2023 10:40-0400 Heart rate 57 /min Dr. Aury Schneider Work Phone: [facility] 05-12-2023 10:40-0400 Respiratory rate 14 /min Dr. Aury Schneider Work Phone: [facility] 05-12-2023 10:40-0400 Systolic blood pressure 106 mm[Hg] Dr. Aury Schneider Work Phone: [facility] 04-08-2023 10:26-0400 Body mass index (BMI) [Ratio] 45.3 kg/m2 Dr. Aury Schneider Work Phone: [facility] 04-08-2023 10:26-0400 Body weight 135.[address] Aury Schneider Work Phone: [facility] 04-08-2023 10:26-0400 Diastolic blood pressure 81 mm[Hg] Dr. Aury Schneider Work Phone: [facility] 04-08-2023 10:26-0400 Heart rate 57 /min Dr. Aury Schneider Work Phone: [facility] 04-08-2023 10:26-0400 Respiratory rate 16 /min Dr. Aury Schneider Work Phone: [facility] 04-08-2023 10:26-0400 SaO2% (BldA) [Mass fraction] 93 % Dr. Aury Schneider Work Phone: [facility] 04-08-2023 10:26-0400 Systolic blood pressure 132 mm[Hg] Dr. Aury Schneider Work Phone: [facility] 03-20-2023 12:34-0400 Body temperature 98.2 [degF] Dr. Aury Schneider Work Phone: [facility] 03-20-2023 12:34-0400 Diastolic blood pressure 72 mm[Hg] Dr. Aury Schneider Work Phone: [facility] 03-20-2023 12:34-0400 Heart rate 72 /min Dr. Aury Schneider Work Phone: [facility] 03-20-2023 12:34-0400 Respiratory rate 18 /min Dr. Aury Schneider Work Phone: [facility] 03-20-2023 12:34-0400 SaO2% (BldA) [Mass fraction] 97 % Dr. Aury Schneider Work Phone: [facility] 03-20-2023 12:34-0400 Systolic blood pressure 125 mm[Hg] Dr. Aury Schneider Work Phone: [facility] 03-06-2023 10:21-0400 Body temperature 99.4 [degF] Dr. Aury Schneider Work Phone: [facility] 03-06-2023 10:21-0400 Diastolic blood pressure 78 mm[Hg] Dr. Aury Schneider Work Phone: [facility] 03-06-2023 10:21-0400 Heart rate 53 /min Dr. Aury Schneider Work Phone: [facility] 03-06-2023 10:21-0400 Respiratory rate 16 /min Dr. Aury Schneider Work Phone: [facility] 03-06-2023 10:21-0400 SaO2% (BldA) [Mass fraction] 92 % Dr. Aury Schneider Work Phone: [facility] 03-06-2023 10:21-0400 Systolic blood pressure 126 mm[Hg] Dr. Aury Schneider Work Phone: [facility] 02-20-2023 08:15-0400 Body temperature 98.3 [degF] Dr. Aury Schneider Work Phone: [facility] 02-20-2023 08:15-0400 Diastolic blood pressure 76 mm[Hg] Dr. Aury Schneider Work Phone: [facility] 02-20-2023 08:15-0400 Heart rate 77 /min Dr. Aury Schneider Work Phone: [facility] 02-20-2023 08:15-0400 Respiratory rate 17 /min Dr. Aury Schneider Work Phone: [facility] 02-20-2023 08:15-0400 SaO2% (BldA) [Mass fraction] 92 % Dr. Aury Schneider Work Phone: [facility] 02-20-2023 08:15-0400 Systolic blood pressure 119 mm[Hg] Dr. Aury Schneider Work Phone: [facility] 01-09-2023 02:11-0400 Diastolic blood pressure 60 mm[Hg] Dr. Aury Schneider Work Phone: [facility] 01-09-2023 02:11-0400 Heart rate 78 /min Dr. Aury Schneider Work Phone: [facility] 01-09-2023 02:11-0400 Respiratory rate 18 /min Dr. Aury Schneider Work Phone: [facility] 01-09-2023 02:11-0400 Systolic blood pressure 102 mm[Hg] Dr. Aury Schneider Work Phone: [facility] 01-08-2023 22:37-0400 Body height 172.[address] Aury Schneider Work Phone: [facility] 01-08-2023 22:37-0400 Body mass index (BMI) [Ratio] 47 kg/m2 Dr. Aury Schneider Work Phone: [facility] 01-08-2023 22:37-0400 Body temperature 97.6 [degF] Dr. Aury Schneider Work Phone: [facility] 01-08-2023 22:37-0400 Body weight 140.[address] Aury Schneider Work Phone: [facility] 01-08-2023 22:37-0400 SaO2% (BldA) [Mass fraction] 95 % Dr. Aury Schneider Work Phone: [facility] 12-09-2022 08:25-0400 Body temperature 99.4 [degF] Dr. Aury Schneider Work Phone: [facility] 12-09-2022 08:25-0400 Diastolic blood pressure 66 mm[Hg] Dr. Aury Schneider Work Phone: [facility] 12-09-2022 08:25-0400 Heart rate 78 /min Dr. Aury Schneider Work Phone: [facility] 12-09-2022 08:25-0400 Respiratory rate 16 /min Dr. Aury Schneider Work Phone: [facility] 12-09-2022 08:25-0400 SaO2% (BldA) [Mass fraction] 95 % Dr. Aury Schneider Work Phone: [facility] 12-09-2022 08:25-0400 Systolic blood pressure 107 mm[Hg] Dr. Aury Schneider Work Phone: [facility] 12-09-2022 07:27-0400 Body height 173.[address] Aury Schneider Work Phone: [facility] 12-09-2022 07:27-0400 Body mass index (BMI) [Ratio] 46.9 kg/m2 Dr. Aury Schneider Work Phone: [facility] 12-09-2022 07:27-0400 Body weight 142.[address] Aury Schneider Work Phone: [facility] 12-04-2022 08:27-0400 Body mass index (BMI) [Ratio] 47 kg/m2 Dr. Aury Schneider Work Phone: [facility] 12-04-2022 08:27-0400 Body weight 140.[address] Aury Schneider Work Phone: [facility] 09-25-2022 17:25-0400 Diastolic blood pressure 78 mm[Hg] Dr. Aury Schneider Work Phone: [facility] 09-25-2022 17:25-0400 Systolic blood pressure 156 mm[Hg] Dr. Aury Schneider Work Phone: [facility] 09-25-2022 17:19-0400 Body temperature 98.4 [degF] Dr. Aury Schneider Work Phone: [facility] 09-25-2022 17:19-0400 Heart rate 94 /min Dr. Aury Schneider Work Phone: [facility] 09-25-2022 17:19-0400 Respiratory rate 18 /min Dr. Aury Schneider Work Phone: [facility] 09-25-2022 17:19-0400 SaO2% (BldA) [Mass fraction] 96 % Dr. Aury Schneider Work Phone: [facility] 06-27-2022 15:00-0500 Heart rate 84 /min Dr. Aury Schneider Work Phone: [facility] Work Phone: 06-27-2022 13:45-0500 Body height 172.[address] Aury Schneider Work Phone: [facility] Work Phone: 06-27-2022 13:45-0500 Body weight [address] Aury Schneider Work Phone: [facility] Work Phone: 06-27-2022 11:34-0500 Body temperature 97.9 [degF] Dr. Aury Schneider Work Phone: [facility] Work Phone: 06-27-2022 11:34-0500 Diastolic blood pressure 78 mm[Hg] Dr. Aury Schneider Work Phone: [facility] Work Phone: 06-27-2022 11:34-0500 Respiratory rate 14 /min Dr. Aury Schneider Work Phone: [facility] Work Phone: 06-27-2022 11:34-0500 SaO2% (BldA) [Mass fraction] 95 % Dr. Aury Schneider Work Phone: [facility] Work Phone: 06-27-2022 11:34-0500 Systolic blood pressure 122 mm[Hg] Dr. Aury Schneider Work Phone: [facility] Work Phone: 06-27-2022 05:20-0500 Inhaled oxygen concentration 21 % Dr. Aury Schneider Work Phone: [facility] Work Phone: 06-26-2022 22:44-0500 Body mass index (BMI) [Ratio] 45.6 kg/m2 Dr. Aury Schneider Work Phone: [facility] Work Phone: 06-26-2022 22:09-0500 Body temperature 98.4 [degF] Dr. Aury Schneider Work Phone: [facility] Work Phone: 06-26-2022 22:09-0500 Diastolic blood pressure 77 mm[Hg] Dr. Aury Schneider Work Phone: [facility] Work Phone: 06-26-2022 22:09-0500 Heart rate 87 /min Dr. Aury Schneider Work Phone: [facility] Work Phone: 06-26-2022 22:09-0500 Respiratory rate 18 /min Dr. Aury Schneider Work Phone: [facility] Work Phone: 06-26-2022 22:09-0500 SaO2% (BldA) [Mass fraction] 99 % Dr. Aury Schneider Work Phone: [facility] Work Phone: 06-26-2022 22:09-0500 Systolic blood pressure 105 mm[Hg] Dr. Aury Schneider Work Phone: [facility] Work Phone: 06-26-2022 18:00-0500 Body height 172.[address] Aury Schneider Work Phone: [facility] Work Phone: 06-26-2022 18:00-0500 Body mass index (BMI) [Ratio] 46 kg/m2 Dr. Aury Schneider Work Phone: [facility] Work Phone: 06-26-2022 18:00-0500 Body weight 137.[address] Aury Schneider Work Phone: [facility] Work Phone: 06-13-2022 13:27-0500 Body temperature 97.3 [degF] Dr. Aury Schneider Work Phone: [facility] Work Phone: 06-13-2022 13:27-0500 Diastolic blood pressure 59 mm[Hg] Dr. Aury Schneider Work Phone: [facility] Work Phone: 06-13-2022 13:27-0500 Heart rate 70 /min Dr. Aury Schneider Work Phone: [facility] Work Phone: 06-13-2022 13:27-0500 Respiratory rate 18 /min Dr. Aury Schneider Work Phone: [facility] Work Phone: 06-13-2022 13:27-0500 SaO2% (BldA) [Mass fraction] 97 % Dr. Aury Schneider Work Phone: [facility] Work Phone: 06-13-2022 13:27-0500 Systolic blood pressure 104 mm[Hg] Dr. Aury Schneider Work Phone: [facility] Work Phone: 06-13-2022 07:42-0500 Inhaled oxygen flow rate 3 L/min Dr. Aury Schneider Work Phone: [facility] Work Phone: 06-12-2022 06:00-0500 Body height 172.[address] Aury Schneider Work Phone: [facility] Work Phone: 06-12-2022 06:00-0500 Body mass index (BMI) [Ratio] 46.3 kg/m2 Dr. Aury Schneider Work Phone: [facility] Work Phone: 06-12-2022 06:00-0500 Body weight 138.[address] Aury Schneider Work Phone: [facility] Work Phone: 05-15-2022 09:41-0400 Diastolic blood pressure 80 mm[Hg] Dr. Aury Schneider Work Phone: [facility] Work Phone: 05-15-2022 09:41-0400 Systolic blood pressure 140 mm[Hg] Dr. Aury Schneider Work Phone: [facility] Work Phone: 05-15-2022 09:41-0400 Body mass index (BMI) [Ratio] 44.4 kg/m2 Dr. Aury Schneider Work Phone: [facility] Work Phone: 05-15-2022 09:41-0400 Body weight 140.[address] Aury Schneider Work Phone: [facility] Work Phone: 05-15-2022 09:41-0400 Heart rate 79 /min Dr. Aury Schneider Work Phone: [facility] Work Phone: 05-15-2022 09:41-0400 Respiratory rate 22 /min Dr. Aury Schneider Work Phone: [facility] Work Phone: 05-15-2022 09:41-0400 SaO2% (BldA) [Mass fraction] 97 % Dr. Aury Schneider Work Phone: [facility] Work Phone: 04-09-2022 23:29-0400 Diastolic blood pressure 71 mm[Hg] Dr. Aury Schneider Work Phone: [facility] Work Phone: 04-09-2022 23:29-0400 Heart rate 71 /min Dr. Aury Schneider Work Phone: [facility] Work Phone: 04-09-2022 23:29-0400 Respiratory rate 18 /min Dr. Aury Schneider Work Phone: [facility] Work Phone: 04-09-2022 23:29-0400 SaO2% (BldA) [Mass fraction] 96 % Dr. Aury Schneider Work Phone: [facility] Work Phone: 04-09-2022 23:29-0400 Systolic blood pressure 152 mm[Hg] Dr. Aury Schneider Work Phone: [facility] Work Phone: 04-09-2022 22:28-0400 Body height 177.[address] Aury Schneider Work Phone: [facility] Work Phone: 04-09-2022 22:28-0400 Body mass index (BMI) [Ratio] 42.9 kg/m2 Dr. Aury Schneider Work Phone: [facility] Work Phone: 04-09-2022 22:28-0400 Body temperature 97.8 [degF] Dr. Aury Schneider Work Phone: [facility] Work Phone: 04-09-2022 22:28-0400 Body weight 135.[address] Aury Schneider Work Phone: [facility] Work Phone: 03-01-2022 17:48-0400 Body temperature 98.8 [degF] Dr. Aury cShneider Work Phone: [facility] Work Phone: 03-01-2022 17:48-0400 Heart rate 72 /min Dr. Aury Schneider Work Phone: [facility] Work Phone: 03-01-2022 17:48-0400 Respiratory rate 16 /min Dr. Aury Schneider Work Phone: [facility] Work Phone: 03-01-2022 17:48-0400 SaO2% (BldA) [Mass fraction] 99 % Dr. Aury Schneider Work Phone: [facility] Work Phone: 03-01-2022 15:13-0400 Diastolic blood pressure 91 mm[Hg] Dr. Aury Schneider Work Phone: [facility] Work Phone: 03-01-2022 15:13-0400 Systolic blood pressure 148 mm[Hg] Dr. Aury Schneider Work Phone: [facility] Work Phone: 03-01-2022 15:11-0400 Body height 177.[address] Aury Schneider Work Phone: [facility] Work Phone: 03-01-2022 15:11-0400 Body mass index (BMI) [Ratio] 43.3 kg/m2 Dr. Aury Schneider Work Phone: [facility] Work Phone: 03-01-2022 15:11-0400 Body weight 136.[address] Aury Schneider Work Phone: [facility] Work Phone: 01-11-2022 10:29-0400 Body mass index (BMI) [Ratio] 45.3 kg/m2 Dr. Aury Schneider Work Phone: [facility] Work Phone: 01-11-2022 10:29-0400 Body temperature 99.2 [degF] Dr. Aury Schneider Work Phone: [facility] Work Phone: 01-11-2022 10:29-0400 Body weight 135.[address] Aury Schneider Work Phone: [facility] Work Phone: 01-11-2022 10:29-0400 Diastolic blood pressure 86 mm[Hg] Dr. Aury Schneider Work Phone: [facility] Work Phone: 01-11-2022 10:29-0400 Heart rate 67 /min Dr. Aury Schneider Work Phone: [facility] Work Phone: 01-11-2022 10:29-0400 Respiratory rate 18 /min Dr. Aury Schneider Work Phone: [facility] Work Phone: 01-11-2022 10:29-0400 SaO2% (BldA) [Mass fraction] 97 % Dr. Aury Schneider Work Phone: [facility] Work Phone: 01-11-2022 10:29-0400 Systolic blood pressure 122 mm[Hg] Dr. Aury Schneider Work Phone: [facility] Work Phone: 12-26-2021 08:03-0400 Body temperature 98.7 [degF] Dr. Aury Schneider Work Phone: [facility] Work Phone: 12-26-2021 08:03-0400 Diastolic blood pressure 82 mm[Hg] Dr. Aury Schneider Work Phone: [facility] Work Phone: 12-26-2021 08:03-0400 Heart rate 76 /min Dr. Aury Schneider Work Phone: [facility] Work Phone: 12-26-2021 08:03-0400 Respiratory rate 16 /min Dr. Aury Schneider Work Phone: [facility] Work Phone: 12-26-2021 08:03-0400 SaO2% (BldA) [Mass fraction] 96 % Dr. Aury Schneider Work Phone: [facility] Work Phone: 12-26-2021 08:03-0400 Systolic blood pressure 142 mm[Hg] Dr. Aury Schneider Work Phone: [facility] Work Phone: 11-04-2021 08:47-0400 Body mass index (BMI) [Ratio] 42.8 kg/m2 Dr. Aury Schneider Work Phone: [facility] Work Phone: 11-04-2021 08:47-0400 Body weight 127.[address] Aury Schneider Work Phone: [facility] Work Phone: 10-06-2021 16:40-0400 Body temperature 98.4 [degF] Dr. Aury Schneider Work Phone: [facility] Work Phone: 10-06-2021 16:40-0400 Diastolic blood pressure 78 mm[Hg] Dr. Aury Schneider Work Phone: [facility] Work Phone: 10-06-2021 16:40-0400 Heart rate 66 /min Dr. Aury Schneider Work Phone: [facility] Work Phone: 10-06-2021 16:40-0400 Respiratory rate 16 /min Dr. Aury Schneider Work Phone: [facility] Work Phone: 10-06-2021 16:40-0400 SaO2% (BldA) [Mass fraction] 98 % Dr. Aury Schneider Work Phone: [facility] Work Phone: 10-06-2021 16:40-0400 Systolic blood pressure 124 mm[Hg] Dr. Aury Schneider Work Phone: [facility] Work Phone: 10-06-2021 13:35-0400 Body height 180.[address] Aury Schneider Work Phone: [facility] Work Phone: 10-06-2021 13:35-0400 Body mass index (BMI) [Ratio] 42.7 kg/m2 Dr. Aury Schneider Work Phone: [facility] Work Phone: 10-06-2021 13:35-0400 Body weight 139.[address] Aury Schneider Work Phone: [facility] Work Phone: 08-03-2021 12:46-0500 Body temperature 99.1 [degF] Dr. Aury Schneider Work Phone: [facility] Work Phone: 08-03-2021 12:46-0500 Diastolic blood pressure 80 mm[Hg] Dr. Aury Schneider Work Phone: [facility] Work Phone: 08-03-2021 12:46-0500 Heart rate 89 /min Dr. Aury Schneider Work Phone: [facility] Work Phone: 08-03-2021 12:46-0500 Respiratory rate 16 /min Dr. Aury Schneider Work Phone: [facility] Work Phone: 08-03-2021 12:46-0500 SaO2% (BldA) [Mass fraction] 96 % Dr. Aury Schneider Work Phone: [facility] Work Phone: 08-03-2021 12:46-0500 Systolic blood pressure 128 mm[Hg] Dr. Aury Schneider Work Phone: [facility] Work Phone: 11-27-2020 10:00-0400 Diastolic blood pressure 68 mm[Hg] Saran Day MD Work Phone: [facility] Work Phone: 11-27-2020 10:00-0400 Heart rate 47 /min Saran Day MD Work Phone: [facility] Work Phone: 11-27-2020 10:00-0400 Respiratory rate 15 /min Saran Day MD Work Phone: [facility] Work Phone: 11-27-2020 10:00-0400 SaO2% (BldA) [Mass fraction] 95 % Saran Day MD Work Phone: [email or web address] Work Phone: 11-27-2020 10:00-0400 Systolic blood pressure 90 mm[Hg] Saran Day MD Work Phone: [facility] Work Phone: 11-27-2020 04:00-0400 Body temperature 98.4 [degF] Saran Day MD Work Phone: [facility] Work Phone: 11-26-2020 05:51-0400 Body height 177.8 cm Saran Day MD Work Phone: [facility] Work Phone: 11-26-2020 05:51-0400 Body mass index (BMI) [Ratio] 44.05 kg/m2 Saran Day MD Work Phone: [email or web address] Work Phone: 11-26-2020 05:51-0400 Body weight 139.25 kg Saran Day MD Work Phone: [email or web address] Work Phone: Encounters Encounter Date Encounter Type Care Provider Facility Start: 03-30-2025 ambulatory Aury Schneider Facility: [facility] Start: 02-16-2025 End: 02-16-[address] Aury Schneider DO Work Phone: [facility] Start: 02-16-2025 End: 02-16-2025 Patient encounter procedure Kena Ramirez -[facility] Work Phone: Start: 02-16-2025 End: 02-16-2025 ambulatory Aury Schneider Facility:[facility] Start: 02-09-2025 End: 02-09-2025 ambulatory AURY SCHNEIDER DO Facility:A Start: 01-03-2025 Non-patient / Non-visit Brittani YATES -[facility] Work Phone: Start: 01-03-2025 ambulatory Aury Schneider Facility: [facility] Start: 01-03-2025 Non-patient / Non-visit Dr. Dona CURTIS -[facility] Start: 01-03-2025 End: 01-03-[address] Aury Schneider DO Work Phone: -[facility] Start: 01-03-2025 End: 01-03-2025 Patient encounter procedure Brittani Graham [facility] Work Phone: Start: 01-03-2025 End: 01-03-2025 ambulatory Aury Schneider Facility:[facility] Start: 12-19-2024 End: 12-19-2024 ambulatory KELSEY OTTO MD Facility:[facility] Start: 12-19-2024 End: 12-19-2024 SAME DAY STAY KELSEY OTTO MD [facility] Start: 12-14-2024 End: 12-18-2024 ambulatory AURY SCHNEIDER DO Facility:A Start: 12-14-2024 End: 12-18-2024 Encounter for other preprocedural examination RENALDO ORDONEZ LPN RN HOSPICE-MAT WORKER Facility:A Start: 12-13-2024 Encounter for other preprocedural examination Brittani Graham [facility] Start: 12-13-2024 End: 12-13-2024 Patient encounter procedure Brittani Graham [facility] Work Phone: Start: 12-13-2024 End: 12-13-2024 Preoperative state Brittani Graham NP-C [facility] Start: 12-13-2024 End: 12-13-[address] Aury Schneider DO Work Phone: [facility] Work Phone: Start: 12-13-[address] Aury Schneider DO Work Phone: [facility] Start: 12-09-2024 End: 12-09-2024 Admission to [facility] KELSEY OTTO MD [facility] Start: 12-09-2024 End: 12-09-2024 ambulatory KELSEY OTTO MD [facility] Start: 11-14-2024 Non-patient / Non-visit Dr. Akbar chen MD -[facility] Start: 11-14-2024 End: 11-14-[address] Aury Schneider DO Work Phone: [facility] Work Phone: Start: 11-14-2024 End: 11-14-2024 Patient encounter procedure Ely CERVANTES -[facility] Work Phone: Start: 11-14-2024 End: 11-14-2024 ambulatory Ely Monsalve Facility:[facility] Start: 11-02-2024 End: 11-02-2024 Patient encounter procedure Ely CERVANTES -[facility] Work Phone: Start: 11-02-2024 End: 11-02-2024 ambulatory Aury Schneider Facility:[facility] Start: 08-12-2024 End: 08-16-2024 ambulatory AURY SCHNEIDER DO [facility] Start: 08-12-2024 End: 08-16-2024 Encounter for general adult medical examination without abnormal findings AURY SCHNEIDER DO [facility] Start: 07-29-2024 ambulatory Aury Schneider Facility: [facility] Start: 07-25-2024 End: 07-25-2024 Patient encounter procedure Leo CERVANTES [facility] Work Phone: Start: 07-25-2024 End: 07-25-2024 ambulatory Aury Schneider Facility:[facility] Start: 07-08-2024 ambulatory Efewongbe Oleghe OLS Fa cility:[facility] Start: 07-01-2024 ambulatory Efewongbe Oleghe OLS Fa cility:[facility] Start: 06-24-2024 ambulatory Efewongbe Oleghe OLS Fa cility:[facility] Start: 06-23-2024 End: 06-23-2024 ambulatory Jelly Bonilla NP Facility:[facility] Start: 06-17-2024 ambulatory AURY SCHNEIDER DO Faci lity:[facility] Start: 06-17-2024 End: 06-17-2024 ambulatory Aury Schneider Facility:[facility] Start: 06-10-2024 ambulatory Hernan ABDI Fa cility:[facility] Start: 06-07-2024 End: 06-07-2024 ambulatory Aury Schneider Facility:[facility] Start: 06-02-2024 End: 06-02-2024 ambulatory Jelly Bonilla KEATON Facility:[facility] Start: 06-02-2024 End: 06-02-2024 ambulatory Hernan ABDI Facility:[facility] Start: 05-23-2024 End: 05-23-2024 ambulatory AURY SCHNEIDER DO Facility:[facility] Start: 05-23-2024 End: 05-23-[address] THOMAS IBRAHIM MD [facility] Start: 04-27-2024 End: 04-27-2024 ambulatory Aury Wyatt Facility:[facility] Start: 04-22-2024 End: 04-22-2024 ambulatory Aury Schneider Facility:[facility] Start: 04-08-2024 End: 04-08-2024 Telephone encounter Taylor Steen MD Work Phone: 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 Work Phone: Radiology Start: 04-06-2024 End: 04-11-2024 ambulatory Aury Schneider Facility:[facility] Start: 03-30-2024 End: 03-30-2024 Telephone encounter Paula Yin APRN.CNP Work Phone: [facility] Start: 03-25-2024 End: 03-25-2024 ambulatory Aury Wyatt Facility:[facility] Start: 03-18-2024 End: 03-18-2024 ambulatory Aury Schneider Facility:[facility] Start: 03-09-2024 End: 03-12-2024 ambulatory Aury Schneider Facility:[facility] Start: 03-08-2024 End: 03-12-2024 ambulatory RENALDO THOMASLEN LPN RN HOSPICE-MAT WORKER Facility:A Start: 10-25-2023 Non-patient / Non-visit Dr. Abby Schneider Work Phone: [facility] Work Phone: Start: 10-23-2023 Non-patient / Non-visit Dr. Abby Schneider Work Phone: [facility] Start: 10-23-2023 End: 10-23-[address] Aury Schneider Work Phone: [facility] Work Phone: Start: 10-23-2023 End: 10-23-[address] [facility] Work [facility] Start: 10-13-2023 Non-patient / Non-visit Dr. Abby Schneider Work Phone: [facility] Work Phone: Start: 10-13-2023 Non-patient / Non-visit Dr. Abby Schneider Work Phone: [facility] Start: 10-13-2023 End: 10-13-[address] Aury Schneider Work Phone: [facility] Work Phone: Start: 10-13-2023 End: 10-13-[address] Aury Schneider Work Phone[facility] Work Phone: Start: 09-24-2023 End: 09-24-2023 Emergency department patient visit Dr. Aury Schneider Work Phone: [facility]-Emergency Department Work Phone: Start: 09-18-2023 End: 09-18-[address] Aury Schneider Work Phone: [facility] Work Phone: Start: 09-10-2023 End: 09-11-2023 Emergency department patient visit Dr. Aury Schneider Work Phone: [facility]Emer[facility] Work Phone: Start: 08-24-2023 End: 08-24-[address] Aury Schneider Work Phone: [facility] Work Phone: Start: 07-27-2023 End: 07-31-2023 ambulatory AURY SCHNEIDER DO Facility:[facility] Start: 07-27-2023 End: 07-31-2023 Encounter for general adult medical examination without abnormal findings AURY SCHNEIDER DO Facility:[facility] Start: 05-12-2023 End: 05-12-[address] Aury Schneider Work Phone: [facility] Work Phone: Start: 04-08-2023 End: 04-08-[address] Aury Schneider Work Phone: [facility] Work Phone: Start: 04-03-2023 End: 04-03-[address] Aury Schneider Work Phone: [facility] Work Phone: Start: 04-03-2023 End: 04-03-[address] [facility] Start: 03-20-2023 End: 03-20-[address] Aury Schneider Work Phone: [facility] Work Phone: Start: 03-06-2023 End: 03-06-[address] Aury Schneider Work Phone: [facility] Work Phone: Start: 02-20-2023 End: 02-20-[address] Aury Schneider Work Phone: [facility] Work Phone: Start: 01-08-2023 End: 01-09-2023 Emergency department patient visit Dr. A[facility] Schneider Work Phone: [facility] [facility] Work Phone: Start: 12-09-2022 Non-patient / Non-visit Dr. Abby Schneider Work Phone: [facility] Start: 12-09-2022 End: 12-09-2022 Admission to same day surgery center Dr. Aury Schneider Work Phone: [facility]-Endoscopy Start: 12-09-2022 End: 12-09-[address] Aury Schneider Work Phone: [facility] Work Phone: Start: 12-04-2022 Non-patient / Non-visit Dr. Abby Schneider Work Phone: [facility] Start: 09-25-2022 End: 09-25-[address] Aury Schneider Work Phone: [facility] Start: 06-27-2022 Non-patient / Non-visit Dr. Abby Schneider Work Phone: [facility] In[facility] Phys[facility] Start: 06-27-2022 Non-patient / Non-visit Dr. Abby Schneider Work Phone: [facility] Start: 06-26-2022 Non-patient / Non-visit Dr. Abby Schneider Work Phone: [facility] Start: 06-26-2022 End: 06-27-2022 Evaluation and management of inpatient [facility]yr [facility] Start: 06-26-2022 Evaluation and management of inpatient Dr. [facility]ury [facility] Start: 06-26-2022 Non-patient / Non-visit Dr. Abby Schneider Work Phone: [facility] Start: 06-12-2022 Non-patient / Non-visit Dr. Abby Schneider Work Phone: [facility] In[facility] Phys[facility] Start: 06-12-2022 End: 06-13-2022 Evaluation and management of inpatient Dr. Aury Schneider [facility] Start: 06-12-2022 End: 06-13-[address] Aury Schneider Work Phone: [facility] Work Phone: Start: 05-15-2022 End: 05-15-[address] Aury Schneider Work Phone: [facility] Start: 04-30-2022 End: 04-30-[address] Aury Schneider Work Phone: [facility] Work Phone: Start: 04-30-2022 End: 04-30-[address] Aury Schneider Work Phone: [facility] Start: 04-09-2022 End: 04-09-2022 Emergency department patient visit Dr. Aury Schneider Work Phone: [facility]-Emergency Department Start: 03-01-2022 End: 03-01-2022 Emergency department patient visit Dr. Aury Schneider Work Phone: [facility]-Emergency Department Start: 01-11-2022 End: 01-11-[address] Aury Shcneider Work Phone: [facility] Start: 12-26-2021 Non-patient / Non-visit Dr. Abby Schneider Work Phone: [facility] Start: 12-26-2021 End: 12-26-[address] Aury Schneider Work Phone: [facility] Start: 11-28-2021 End: 11-28-2021 Subsequent hospital visit by physician Shana Huerta APRN - [employer] Work Phone: [facility] [address] Comment on above: Aortic valve stenosi s, etiology of cardiac valve disease unspecified Start: 11-04-2021 End: 11-04-[address] Aury Schneider Work Phone: [facility] Start: 10-06-2021 End: 10-06-2021 Emergency department patient visit Dr. Aury Schneider [facility] Start: 08-03-2021 End: 08-03-[address] Aury Schneider Work Phone: [facility] Start: 01-02-2021 End: 01-02-2021 Subsequent hospital visit by physician Shana Huerta APRN - MAT WORK[employer] Work Phone: [facility] [address] Comment on above: Aortic stenosis, sev ere Start: 11-26-2020 End: 11-27-2020 Evaluation and management of inpatient Saran Day MD Work Phone: [facility] Comment on above: Arrived Procedures Date Procedure Procedure Detail Performing Clinician Start: 02-16-2025 Assay of prostate sp ecific antigen total Dr. Aury Schneider DO Work Phone: Comment on above: This test was perfor med using the [employer] tPSA method. Measured values of a patient sample can vary depending on the testing procedure used. PSA values determined on patient samples by different testing procedures cannot be used interchangeably. If there is a change in PSA assays while monitoring therapy, sequential testing should be performed to confirm baseline values. 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 uAry Schneider Work Phone: Start: 09-24-2023 CT cervical spine wi thout contrast Dr. Aury Schneider Work Phone: Start: 09-24-2023 Radiography of thora cic spine Dr. Aury Schneider Work Phone: Start: 09-24-2023 X-ray of lumbar spin e, two or three views Dr. Aury Schneider Work Phone: Start: 09-11-2023 CT angiography of ch est with contrast Dr. Aury Schneider Work Phone: Start: 09-10-2023 Plain chest X-ray Dr. Wily Schneider Work Phone: Start: 07-13-2023 History of amputatio n of foot History of amputation of toe Dr. Aury Schneider DO Work Phone: Comment on above: L foot second toe Start: 12-09-[address] Aury Schneider Work Phone: Start: 06-27-2022 Cardiovascular stres s test using pharmacologic stress agent Dr. Aury Schneider Work Phone: Start: 06-26-2022 CT angiography of ch est with contrast Dr. Aury Schneider Work Phone: Start: 06-26-2022 Plain chest X-ray Dr. Wily Schneider Work Phone: Start: 06-12-2022 Plain X-ray of shoulder Dr. 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 Aury Schenider Work Phone: Start: 06-12-2022 Pro[address] arthropl[address] sty of shoulder DR THOMAS IBRAHIM MD Comment on above: Left Start: 04-30-2022 CT of upper limb wit hout contrast Dr. Aury Schneider Work Phone: Start: 04-09-2022 Plain x-ray of humerus Dr. Aury Schneider Work Phone: Start: 04-09-2022 Plain X-ray of shoulder Dr. Aury Schneider Work Phone: Start: 02-25-2022 Insertion of hip prosthesis DR THOMAS IBRAHIM MD Comment on above: Left Start: 11-28-2021 Echo tthrc r-t 2d w/wom-mode compl spec&colr d Shana Huerta LPN RN HOSPICE - MAT WORKER Work Phone: Start: 11-04-2021 Plain x-ray of pelvi s and lower extremity Dr. Aury Schneider Work Phone: Start: 10-06-2021 CT of abdomen and pe lvis without contrast Dr. Aury Schneider Work Phone: Start: 01-02-2021 Echo tthrc r-t 2d w/wom-mode compl spec&colr d Shana Huerta LPN RN HOSPICE - MAT WORKER Work Phone: Start: 11-27-2020 Echo tthrc r-t 2d w/wom-mode compl spec&colr d Shana Huerta LPN RN HOSPICE - MAT WORKER Work Phone: Start: 11-27-2020 Ecg routine ecg w/le ast 12 lds w/i&r Shana Huerta LPN RN HOSPICE - MAT WORKER Work Phone: Start: 11-27-2020 Basic metabolic pane l calcium total Shana L Jae LPN RN HOSPICE - MAT WORKER Work Phone: Start: 11-26-2020 Basic metabolic pane l calcium total Shana L Jae LPN RN HOSPICE - MAT WORKER Work Phone: Start: 11-26-2020 Ecg routine ecg w/le ast 12 lds w/i&r Shana L Jae LPN RN HOSPICE - MAT WORKER Work Phone: Start: 11-26-2020 Echocardiography Saran Day MD Work Phone: Start: 11-26-2020 OPERATIVE REPORT 3m Sca nning Start: 11-23-2020 Transcatheter aortic valve implantation DR THOMAS IBRAHIM MD Start: 06-10-2018 Cataract (disorder) DR THOMAS IBRAHIM MD Comment on above: left eye Start: 05-03-2018 Cataract (disorder) DR THOMAS IBRAHIM MD Comment on above: right eye Start: 03-09-[address] THOMAS IBRAHIM MD Comment on above: Polyp removal, lost blood, required over night stay in hospital, polyp benign Start: 12-18-[address] THOMAS IBRAHIM MD Start: 05-23-2010 Arthroplasty of knee planned DR THOMAS IBRAHIM MD Comment on above: Left knee Start: 04-25-[address] THOMAS IBRAHIM MD Comment on above: Right knee. Acromioclavicular tosin int structure (body structure) DR THOMAS IBRAHIM MD Comment on above: Right side, reconstr uction, [address] THOMAS MARTINEZ MD Comment on above: 1966 Bacteria identified in Blood by Culture Dr. Aury Schneider Work Phone: Decompression of med christian nerve DR THOMAS IBRAHIM MD Comment on above: Right wrist, 1999 Elbow region structu re (body structure) DR THOMAS IBRAHIM MD Comment on above: Left side, repair, 1 983 Electromagnetic radi ation in the microwave region (physical force) DR THOMAS IBRAHIM MD Comment on above: Treatment for prosta te, 2008 Fused structure (morphologic abnormality) DR THOMAS IBRAHIM MD Comment on above: L3-L4, 1984 Gingival structure ( body structure) DR THOMAS IBRAHIM MD Comment on above: Surgery on upper terrie k bilateral gum, 2009 Knee region structur e (body structure) DR THOMAS IBRAHIM MD Comment on above: Right knee, Bilatera l meniscectomies, 2002 Left knee, bilateral meniscectomies, [address] THOMAS MARTINEZ MD Comment on above: L3-L4, 1974 Nasal Screen MRSA/MSSA Dr. Wily Schneider Work Phone: Radial keratotomy DR THOMAS IBRAHIM MD Comment on above: Bilateral eyes, 1986 Radiation (physical force) Sariah IBRAHIM MD Comment on above: Treatment for prosta te cancer, 2008 Tooth structure (bod y structure) DR THOMAS IBRAHIM MD Comment on above: Removal2014 Plan of Treatment Date Care Activity Detail Author Start: 03-17-2030 DTaP/Tdap/Td vaccine (2 - Td or Tdap) DTaP/Tdap/Td vaccine (2 - Td or Tdap) [facility] Start: 03-17-2030 DTaP/Tdap/Td vaccine (2 - Td) DTaP/Tdap/Td vaccine (2 - Td) [facility] Work Phone: Start: 03-17-2030 Urine microalbumin profile DTa P,Tdap,Td Vaccine (2 - Td or Tdap) [facility] Start: 2028 RSV Vaccine (1 - 1-d ose 75+ series) RSV Vaccine (1 - 1-dose 75+ series) [facility] Start: 12-13-2024 Evaluation of diagno stic study results [facility] Start: 04-12-2024 End: 04-12-2024 Patient encounter procedure 04/12/2024 1:30 PM EDT Office Visit [place] [id number] [facility] [place] [id number] Alfredo Go MD [address] [facility] [place] [address] Lumbar spondylosis and radiculopathy, left leg sciatica Patient bring MRI from [facility] Xray being pushed from [facility] Comment on above: Lumbar spondylosis a nd radiculopathy, left leg sciatica Patient bring MRI from [facility] Xray being pushed from [facility] Start: 03-13-2024 Covid-19 Vaccine ( season) Covid-19 Vaccine ( season) [facility] Start: 03-13-2024 Covid-19 Vaccine ( season) Covid-19 Vaccine ( season) [facility] Start: 03-13-2024 Influenza vaccination Influenz a Vaccine (#1) [facility] Start: 11-28-2023 Diabetes Screening Diabetes Screenin g [facility] Start: 09-24-2023 [facility] Start: 09-11-2023 [facility] Start: 07-13-2023 Advance Directive Discussion Advance Directive Discussion [facility] Start: 12-09-2022 Colsc flx w/rmvl of tumor polyp lesion snare tq COLONOSCOPY W/LESION REMOVAL [facility] Start: 12-09-2022 Patient discharge [facility] Start: 06-27-2022 Patient discharge [facility] Work Phone: Start: 06-27-2022 [facility] Work Phone: Start: 06-27-2022 Prothrombin time [facility] Work Phone: Start: 06-27-2022 Referral to ticket counter [facility] Work Phone: Start: 06-27-2022 Thyroid stimulating hormone measurement [facility] Work Phone: Start: 06-27-2022 [facility] Work Phone: Start: 06-27-2022 Continuous positive airway pressure ventilation treatment [facility] Work Phone: Start: 06-27-2022 Application of intermittent pneumatic compression device [facility] Work Phone: Start: 06-26-2022 End: 06-27-2022 Following clinical pathway protocol [facility] Work Phone: Start: 06-26-2022 Assessment of risk o f venous thromboembolism [facility] Work Phone: Start: 06-26-2022 Incentive spirometry [facility] Work Phone: Start: 06-26-2022 Insertion of cathete r into peripheral vein [facility] Work Phone: Start: 06-26-2022 Measuring intake and output [facility] Work Phone: Start: 06-26-2022 Providing care accor ding to standard [facility] Work Phone: Start: 06-26-2022 Provision of activit y privileges [facility] Work Phone: Start: 06-26-2022 [facility] Work Phone: Start: 06-26-2022 Verification routine [facility] Work Phone: Start: 06-26-2022 Admission procedure [facility] Work Phone: Start: 06-13-2022 Patient discharge [facility] Work Phone: Start: 06-12-2022 Oxygen therapy [facility] Work Phone: Start: 06-12-2022 Anes arthroscopic to audi shoulder replacement ANESTH SHOULDER REPLACEMENT [facility] Work Phone: Start: 06-12-2022 Arthroplasty glenohu meral joint total shoulder RECONSTRUCT SHOULDER JOINT [facility] Work Phone: Start: 06-12-2022 End: 06-12-2022 Following clinical pathway protocol [facility] Work Phone: Start: 06-12-2022 Admission procedure [facility] Work Phone: Start: 06-12-2022 Verification routine [facility] Work Phone: Start: 06-12-2022 Consultation [facility] Work Phone: Start: 06-12-2022 Ambulation therapy management [facility] Work Phone: Start: 06-12-2022 Application of device W [facility] Work Phone: Start: 06-12-2022 Assessment of risk o f venous thromboembolism [facility] Work Phone: Start: 06-12-2022 Catheterization of vein [facility] Work Phone: Start: 06-12-2022 Following clinical p athway protocol [facility] Work Phone: Start: 06-12-2022 Incentive spirometry [facility] Work Phone: Start: 06-12-2022 Introduction of urin cassy catheter [facility] Work Phone: Start: 06-12-2022 Measuring intake and output [facility] Work Phone: Start: 06-12-2022 Neurovascular assessment [facility] Work Phone: Start: 06-12-2022 Patient education [facility] Work Phone: Start: 06-12-2022 Procedure discontinued [facility] Work Phone: Start: 06-12-2022 Provision of activit y privileges [facility] Work Phone: Start: 06-12-2022 Referral to occupati onal therapist [facility] Work Phone: Start: 06-12-2022 Vital signs measurements [facility] Work Phone: Start: 06-12-2022 Wound care [facility] Work Phone: Start: 06-12-2022 [facility] Work Phone: Start: 06-12-2022 Medication education [facility] Work Phone: Start: 03-13-2022 Influenza vaccination Flu vacc ine (Season Ended) [facility] Start: 03-01-2022 Blood culture [facility] Work Phone: Start: 11-27-2021 Creatinine measurement Creatinine mo nitoring [facility] Work Phone: Start: 11-27-2021 Potassium monitoring Potassium monit oring [facility] Work Phone: Start: 01-02-2021 End: 01-02-2021 Evaluation and management of inpatient 01/02/2021 Office Visit Cardiology Shana Huerta, LPN RN HOSPICE - MAT WORKER [address] [place] [id number] [phone] [facility] Start: 12-05-2020 End: 12-05-2020 Evaluation and management of inpatient [facility] Start: 2018 Pneumococcal 65+ yea rs Vaccine (1 - PCV) Pneumococcal 65+ years Vaccine (1 - PCV) [facility] Start: 2018 Pneumococcal 65+ yea rs Vaccine (1 of 1 - PPSV23) Pneumococcal 65+ years Vaccine (1 of 1 - PPSV23) [facility] Work Phone: Start: 2018 Pneumococcal Vaccine : 65+ (1 of 1 - PCV) Pneumococcal Vaccine: 65+ (1 of 1 - PCV) [facility] Start: 02-22-2015 Shingles Vaccine (2 of 3) Clemente gles Vaccine (2 of 3) [facility] Start: 02-22-2015 Shingrix Vaccine (2 of 3) Clemente grix Vaccine (2 of 3) [facility] Start: 2013 RSV Vaccine (1 - 1-d ose 60+ series) RSV Vaccine (1 - 1-dose 60+ series) [facility] Start: 09-17-2003 Prostate specific an tigen measurement PSA counseling [facility] Work Phone: Start: 09-17-2003 Screening for malign ant neoplasm of colon Colon cancer screen colonoscopy [facility] Work Phone: Start: 1998 Diabetes Screening Diabetes Screenin g [facility] Start: 1998 Screening for malign ant neoplasm of colon [facility] Start: 1993 Lipid panel [facility] Start: 1993 Prostate specific an tigen measurement Prostate Specific Antigen (PSA) Screening or Monitoring [facility] Start: 1988 Lipid panel Lipid Screening [facility] Start: 1972 Urine microalbumin profile DTa P,Tdap,Td Vaccine (1 - Tdap) [facility] Start: 09-17-1971 Anxiety Screening Anxiety Screening [facility] Start: 09-17-1971 Depression Screening Depression Scre ening [facility] Start: 09-17-1971 Hepatitis C screening S [facility] Start: 1965 Depression Screen Depression Screen [facility] Start: 1958 COVID-19 Vaccine (1) COVID-19 Vaccin e (1) [facility] Start: 1953 Hepatitis C screening Hepatitis C sc reen [facility] Work Phone: Alanine aminotransfe rase [Enzymatic activity/volume] in Serum or Plasma [facility] Work Phone: Albumin [Mass/volume ] in Serum or Plasma [facility] Work Phone: Alkaline phosphatase [Enzymatic activity/volume] in Serum or Plasma [facility] Work Phone: Anion gap measurement [facility] Work Phone: Aspartate aminotrans ferase [Enzymatic activity/volume] in Serum or Plasma [facility] Work Phone: Bacteria identified in Blood by Culture Blood Culture [facility] Work Phone: Basic metabolic 2000 panel - Serum or Plasma Basic Metabolic Panel Lab Routine Daily until discontinued starting 11/26/2020, 2 completed [email or web address] Work Phone: Comment on above: Daily until disconti nued starting 11/26/2020, 2 completed Bilirubin, total measurement [facility] Work Phone: Blood culture [facility] Work Phone: BUN/Creatinine ratio [facility] Work Phone: Calcium [Mass/volume ] in Serum or Plasma [facility] Work Phone: Carbon dioxide, tota l [Moles/volume] in Serum or Plasma [facility] Work Phone: CBC panel - Blood by Automated count CBC Lab Routine Daily until discontinued starting 11/26/2020, 2 completed [email or web address] Work Phone: Comment on above: Daily until disconti nued starting 11/26/2020, 2 completed Chloride [Moles/volu me] in Serum or Plasma [facility] Work Phone: Colonoscopy [facility] Continuous pulse oximetry Pulse oximetry, continuous Respiratory Care Routine Every 4hr until discontinued starting 11/26/2020 [employer] Work Phone: Comment on above: Every 4hr until disc ontinued starting 11/26/2020 Creatinine [Moles/vo lume] in Serum or Plasma [facility] Work Phone: EKG 12 lead [email or web address] Work Phone: Comment on above: Daily until disconti nued starting 11/26/2020, 2 completed Glucose [Mass/volume ] in Serum or Plasma [facility] Work Phone: Hematocrit [Volume Fraction] of Blood [facility] Work Phone: Hemoglobin [Mass/vol ume] in Blood [facility] Work Phone: Home BIPAP or CPAP Home BIPAP or CPAP Respiratory Care Routine Daily until discontinued starting 11/26/2020 [email or web address] Work Phone: Comment on above: Daily until disconti nued starting 11/26/2020 INR in Blood by Coagulation assay [facility] Work Phone: Leukocytes [#/volume ] in Blood [facility] Work Phone: Magnesium [Mass/volu me] in Serum or Plasma [facility] Work Phone: Mean corpuscular hemoglobin concentration determination [facility] Work Phone: Mean corpuscular hemoglobin determination [facility] Work Phone: Measurement of renal function [facility] Work Phone: Neutrophil count [facility] Work Phone: Neutrophil percent differential count [facility] Work Phone: NM Heart Views W str ess and W radionuclide IV [facility] Oxygen therapy [[facility] [place] Data Set] Initiate Oxygen Therapy Protocol Respiratory Care Routine Daily until discontinued starting 11/26/2020 [employer] Work Phone: Comment on above: Daily until disconti nued starting 11/26/2020 Patient Education [facility] Work Phone: Patient referral [facility] Work Phone: Platelets [#/volume] in Blood [facility] Work Phone: Potassium [Moles/vol ume] in Serum or Plasma [facility] Work Phone: Prothrombin time [facility] Work Phone: Red blood cell count [facility] Work Phone: Red cell distributio n width determination [facility] Work Phone: Sodium [Moles/volume ] in Serum or Plasma [facility] Work Phone: Spirometry panel Incentive fanny metry Respiratory Care Routine Every 2hr while awake until discontinued starting 11/26/2020 [employer] Work Phone: Comment on above: Every 2hr while awak e until discontinued starting 11/26/2020 Thyroid stimulating hormone measurement [facility] Work Phone: Total protein measurement [facility] Work Phone: Urea nitrogen [Mass/volume] in Serum or Plasma [facility] Work Phone: [facility] Immunizations Immunization Date Immunization Notes Care Provider Fa cili 06-27-2022 influenza, injectabl e, quadrivalent, preservative free Dr. Aury Schneider Work Phone: [facility] 06-27-2022 influenza, seasonal, injectable Dr. Aury Schneider Work Phone: [facility] 06-27-2022 influenza virus vaccine, unspecified formulation Taylor Fierro MD Work Phone: [facility] 10-25-2020 Covid (Moderna) Dr. Aury mata Work Phone: [facility] Comment on above: Result Comment: 2020: [id number] 09-27-2020 Covid (Moderna) Dr. Aury mata Work Phone: [facility] Comment on above: Result Comment: 2020: [id number] 04-12-[address] Aury Schneider Work Phone: [facility] 03-17-2020 tetanus toxoid, redu brian diphtheria toxoid, and acellular pertussis vaccine, adsorbed Dr. Aury Schneider Work Phone: [facility] 04-13-2019 Seasonal trivalent influenza vaccine, adjuvanted, preservative free; Translations: [Fluad ] DR THOMAS IBRAHIM MD [facility] 04-07-2018 influenza virus vaccine, unspecified formulation Paula Yin APRN.CNP Work Phone: [facility] 05-14-2016 influenza virus vaccine, unspecified formulation DR THOMAS IBRAHIM MD [facility] 12-28-2014 zoster vaccine, live DR MARLYS IBRAHIM MD [facility] Payers Date Payer Category Payer Self-pay [id number] Private Health Insurance [id number] 2014 Unknown [id number] 2014 Unknown [id number] 2001 Private Health Insurance [id number] 1953 Unknown [id number] [id number] 1953 Unknown [id number] 2. 1953 Unknown [id number] [id number] 1953 Unknown [id number] 2. 1953 Unknown [id number] 1953 Unknown [id number] [id number] 1953 Unknown [id number] [id number]. 2.627 1955 Unknown [id number] 2.16.840.1.561261.3.579. 2.627 1955 Unknown [id number] 2.16.840.1.250923.3.579. 2.627 Medicare MEDICARE A ONLY [id number] Unknown SELF INS [facility] [id number] Unknown [id number] 2.840.1.356053.3.579. 2.462 Unknown [id number] 2.840.1.322957.3.579. 2.462 Unknown [id number] 2.840.1.261460.3.579. 2.462 Unknown [id number] 2.840.1.692347.3.579. 2.462 Unknown [id number] 2.840.1.861210.3.579. 2.462 Unknown [id number] 2.840.1.935267.3.579. 2.462 Unknown [id number] 2.840.1.329775.3.579. 2.462 Unknown [id number] 2.840.1.875993.3.579. 2.462 Unknown [id number] 2.840.1.735543.3.579. 2.462 Unknown [id number] 2.840.1.898586.3.579. 2.462 Unknown [id number] 2.840.1.375950.3.579. 2.462 Unknown [id number] .840.1.911058.3.579. 2.462 Unknown [id number] 2.840.1.958461.3.579. 2.462 Unknown [id number] 2.840.1.914534.3.579. 2.462 Unknown [id number] 2.840.1.430626.3.579. 2.462 Unknown [id number] 2.16.840.1.662219.3.579. 2.462 Unknown [id number] 2.16.840.1.248150.3.579. 2.462 Unknown [id number] 2.16.840.1.692654.3.579. 2.462 Unknown [id number] 2.16.840.1.307373.3.579. 2.462 Unknown [id number] 2.16.840.1.222552.3.579. 2.462 Unknown [id number] 2.16.840.1.150249.3.579. 2.462 Social History Date Type Detail Facility Start: 11-26-2020 End: 10-14-2024 Tobacco smoking status NHIS Former smoker [facility] Work Phone: History of tobacco use Pipe Smoker [facility] History of tobacco use Cigar Smoker [facility] Start: 06-30-2018 End: 11-26-2020 Tobacco use and exposure Never used [facility] Start: 11-26-2020 End: 01-02-2021 Alcohol intake Ex-drinker (finding) [facility] Work Phone: Start: 1955 Sex Assigned At Not on file [facility] [employer] Work Phone: Exposure to SARS-CoV -2 (event) Not sure [facility] Start: 10-06-2021 End: 09-24-2023 Tobacco smoking status LAIS Unknown if ever smoked [facility] Start: 10-22-2020 None [facility] Start: 07-12-2019 Spouse/ Signif icant Other [facility] Start: 08-19-2020 Cigars;Pipe [facility] Start: 1955 Sex Assigned At Male W [facility] Start: 06-30-2018 Tobacco smoking stat us NHIS Never smoked tobacco [facility] Start: 06-30-2018 Alcoholic beverage intake Current drinker of alcohol (finding) [facility] Start: 06-30-2018 End: 06-17-2020 History of Social function [facility] Start: 06-30-2018 End: 06-17-2020 Tobacco use panel [facility] National Score (1-10 0), lower number is lower risk Not on file [facility] Start: 03-22-2010 Alcohol Comment Oc[facility]ional Ch[facility] Sexual Orientation Opheliarosio becker [facility] Start: 09-01-2018 Sex Male (finding) [facility] Medical Equipment Procedure Code Equipment Code Equipment Origin al Text Equipment Identifier Dates Fusion, joint LARGE IMPLANT CANNULATED FDA Start: 03-18-2024 Fusion, joint VIAFLOW, 1CC FDA Start: 03-18-2024 Fusion, joint LARGE IMPLANT CANNULATED FDA Start: 03-18-2024 Fusion, joint VIAFLOW, 1CC FDA Start: 03-18-2024 Fusion, joint LARGE IMPLANT CANNULATED FDA Start: 03-18-2024 Fusion, joint VIAFLOW, 1CC FDA Start: 03-18-2024 Fusion, joint LARGE IMPLANT CANNULATED FDA Start: 03-18-2024 Fusion, joint VIAFLOW, 1CC FDA Start: 03-18-2024 Fusion, joint LARGE IMPLANT CANNULATED FDA Start: 03-18-2024 Fusion, joint VIAFLOW, 1CC FDA Start: 03-18-2024 SCREW FDA Start: 06-12-2022 Reverse shoulder prosthesis base plate ()[id number] FDA Start: 06-12-2022 Polyethylene rev erse shoulder prosthesis cup ()[id number] FDA Start: 06-12-2022 Coated shoulder humeral stem prosthesis ()[id number] FDA Start: 06-12-2022 Reverse shoulder prosthesis head ()[id number] FDA Start: 06-12-2022 SCREW FDA Start: 06-12-2022 SCREW FDA Start: 06-12-2022 SCREW FDA Start: 06-12-2022 SCREW FDA Start: 06-12-2022 SCREW FDA Start: 06-12-2022 SCREW FDA Start: 06-12-2022 SCREW FDA Start: 06-12-2022 SCREW FDA Start: 06-12-2022 SCREW FDA Start: 06-12-2022 SCREW FDA Start: 06-12-2022 SCREW FDA Start: 06-12-2022 SCREW FDA Start: 06-12-2022 SCREW FDA Start: 06-12-2022 Goals Date Patient Goal Desired Activity /State Functional Status Date Assessment Result Facility 05-23-2024 [facility] Functional Status Maintained Ophelia salas [facility] 06-27-2022 Functional status Activity Ability Indepe ndent [facility] Work Phone: 06-13-2022 Functional status Chair [facility] Work Phone: Mental Status Date Assessment Result Facility 05-23-2024 Mental Status Oriented x 4 Opheliakalyani Timmonsit al [facility] 09-10-2023 Cognitive function Voice/Name [facility] Work Phone: 12-09-2022 Cognitive function Voice/Name [facility] Work Phone: 06-27-2022 Cognitive function Voice/Name [facility] Work Phone: 06-26-2022 Cognitive function Awake;Alert;A ppropriate;Fol lows Commands [facility] Work Phone: 06-13-2022 Cognitive function Voice/Name [facility] Work Phone: Clinical Notes 11-26-2020 to 12-19-2024 Note Date & Type Note Facility 12-19-2024 Hospital Discharge instructions Patient Education 12/19/2024 12:07:07 General Anesthesia, Adult, Care After General Anesthesia, Adult, Care After This sheet gives you information about how to care for yourself after your procedure. Your health care provider may also give you more specific instructions. If you have problems or questions, contact your health care provider. What can I expect after the procedure? After the procedure, the following side effects are common: Pain or discomfort at the IV site. Nausea. Vomiting. Sore throat. Trouble concentrating. Feeling cold or chills. Weak or tired. Sleepiness and fatigue. Soreness and body aches. These side effects can affect parts of the body that were not involved in surgery. Follow these instructions at home: For at least 24 hours after the procedure: Have a responsible adult stay with you. It is important to have someone help care for you until you are awake and alert. Rest as needed. Do not: ?Participate in activities in which you could fall or become injured. ?Drive. ?Use heavy machinery. ?Drink alcohol. ?Take sleeping pills or medicines that cause drowsiness. ?Make important decisions or sign legal documents. ?Take care of children on your own. Eating and drinking Follow any instructions from your health care provider about eating or drinking restrictions. When you feel hungry, start by eating small amounts of foods that are soft and easy to digest (bland), such as toast. Gradually return to your regular diet. Drink enough fluid to keep your urine pale yellow. If you vomit, rehydrate by drinking water, juice, or clear broth. General instructions If you have sleep apnea, surgery and certain medicines can increase your risk for breathing problems. Follow instructions from your health care provider about wearing your sleep device: ?Anytime you are sleeping, including during daytime naps. ?While taking prescription pain medicines, sleeping medicines, or medicines that make you drowsy. Return to your normal activities as told by your health care provider. Ask your health care provider what activities are safe for you. Take bumj-ohm-qxzxkwz and prescription medicines only as told by your health care provider. If you smoke, do not smoke without supervision. Keep all follow-up visits as told by your health care provider. This is important. Contact a health care provider if: You have nausea or vomiting that does not get better with medicine. You cannot eat or drink without vomiting. You have pain that does not get better with medicine. You are unable to pass urine. You develop a skin rash. You have a fever. You have redness around your IV site that gets worse. Get help right away if: You have difficulty breathing. You have chest pain. You have blood in your urine or stool, or you vomit blood. Summary After the procedure, it is common to have a sore throat or nausea. It is also common to feel tired. Have a responsible adult stay with you for the first 24 hours after general anesthesia. It is important to have someone help care for you until you are awake and alert. When you feel hungry, start by eating small amounts of foods that are soft and easy to digest (bland), such as toast. Gradually return to your regular diet. Drink enough fluid to keep your urine pale yellow. Return to your normal activities as told by your health care provider. Ask your health care provider what activities are safe for you. This information is not intended to replace advice given to you by your health care provider. Make sure you discuss any questions you have with your health care provider. Document Released: 10/05/2001 Document Revised: 07/02/2018 Document Reviewed: 02/12/2018 [employer] Patient Education 2020 [place]. 12/19/2024 12:06:52 Open Hernia Repair, Adult Open Hernia Repair, Adult Open hernia repair is a surgical procedure to fix a hernia. A hernia occurs when an internal organ or tissue pushes out through a weak spot in the abdominal wall muscles. Hernias commonly occur in the groin and around the navel. Most hernias tend to get worse over time. Often, surgery is done to prevent the hernia from becoming bigger, uncomfortable, or an emergency. Emergency surgery may be needed if abdominal contents get stuck in the opening (incarcerated hernia) or the blood supply gets cut off (strangulated hernia). In an open repair, an incision is made in the abdomen to perform the surgery. Tell a health care provider about: Any allergies you have. All medicines you are taking, including vitamins, herbs, eye drops, creams, and otyf-hxo-cwadoqk medicines. Any problems you or family members have had with anesthetic medicines. Any blood or bone disorders you have. Any surgeries you have had. Any medical conditions you have, including any recent cold or flu symptoms. Whether you are or may be . What are the risks? Generally, this is a safe procedure. However, problems may occur, including: Long-lasting (chronic) pain. Bleeding. Infection. Damage to the testicle. This can cause shrinking or swelling. Damage to the bladder, blood vessels, intestine, or nerves near the hernia. Trouble passing urine. Allergic reactions to medicines. Return of the hernia. What happens before the procedure? Staying hydrated Follow instructions from your health care provider about hydration, which may include: Up to 2 hours before the procedure you may continue to drink clear liquids, such as water, clear fruit juice, black coffee, and plain tea. Eating and drinking restrictions Follow instructions from your health care provider about eating and drinking, which may include: 8 hours before the procedure stop eating heavy meals or foods such as meat, fried foods, or fatty foods. 6 hours before the procedure stop eating light meals or foods, such as toast or cereal. 6 hours before the procedure stop drinking milk or drinks that contain milk. 2 hours before the procedure stop drinking clear liquids. Medicines Ask your health care provider about: ?Changing or stopping your regular medicines. This is especially important if you are taking diabetes medicines or blood thinners. ?Taking medicines such as aspirin and ibuprofen. These medicines can thin your blood. Do not take these medicines before your procedure if your health care provider instructs you not to. You may be given antibiotic medicine to help prevent infection. General instructions You may have blood tests or imaging studies. Ask your health care provider how your surgical site will be marked or identified. If you smoke, do not smoke for at least 2 weeks before your procedure or for as long as told by your health care provider. Let your health care provider know if you develop a cold or any infection before your surgery. Plan to have someone take you home from the hospital or clinic. If you will be going home right after the procedure, plan to have someone with you for 24 hours. What happens during the procedure? To reduce your risk of infection: ?Your health care team will wash or sanitize their hands. ?Your skin will be washed with soap. ?Hair may be removed from the surgical area. An IV tube will be inserted into one of your veins. You will be given one or more of the following: ?A medicine to help you relax (sedative). ?A medicine to numb the area (local anesthetic). ?A medicine to make you fall asleep (general anesthetic). Your surgeon will make an incision over the hernia. The tissues of the hernia will be moved back into place. The edges of the hernia may be stitched together. The opening in the abdominal muscles will be closed with stitches (sutures). Or, your surgeon will place a mesh patch made of manmade (synthetic) material over the opening. The incision will be closed. A bandage (dressing) may be placed over the incision. The procedure may vary among health care providers and hospitals. What happens after the procedure? Your blood pressure, heart rate, breathing rate, and blood oxygen level will be monitored until the medicines you were given have worn off. You may be given medicine for pain. Do not drive for 24 hours if you received a sedative. This information is not intended to replace advice given to you by your health care provider. Make sure you discuss any questions you have with your health care provider. Document Released: 12/23/2001 Document Revised: 06/11/2018 Document Reviewed: 12/10/2016 [employer] Patient Education 2020 [place]. Follow Up Care 12/07/2024 14:21:09 With:KELSEY OTTO Address: [address] [facility] [place] [place] [address] [place] [address] [phone] Business (1) When: Unknown Comments:keep your follow-up appointment [facility] 12-19-2024 Note Discharge Instructions Thank you for allowing [place] to assist you with your healthcare needs. The following is important discharge information regarding your hospital visit. Your Care Team AURY SCHNEIDER DO Your Diagnosis Acute post-operative pain What to do next Scheduled Follow-Up Appointments Appointment Type When With Where Contact Information StatusGS OV Post Op 01/02/2025 02:00 PM EDKELSEY ALMARAZ MD [facility] Confirmed PC OV 02/09/2025 10:30 AM EDT AURY SCHNEIDER DO [facility] Confirmed Follow Up Appointments Follow Up with KELSEY OTTO Where:[address] [place] [phone] Business (1) Additional Information: keep your follow-up appointment The Following Activity and Diet Have Been Ordered for You Discharge Activity - Ordered -- Sexual [place] Restricted No bending, twisting, crawling or squatt, No shower or tub bath for 2 days; no driving for 5 days, no lifting >15 lbs, 12/19/24 11:08:00 EDT Discharge Diet - Ordered -- Follow the post-operative/post-procedure diet instructions provided by your physician's office., 12/19/24 11:08:00 EDT The Following Equipment Has Been Ordered for You Discharge Home Equipment Discharge Wound Care - Ordered -- Dressing Type: Dry sterile drsg, Remove dressing in two (2) days. Leave steristrips on until they fall off, 12/19/24 11:08:00 EDT Allergies Dilaudid(Severe) Vomiting Medications Please ask your primary doctor or pharmacist before taking any other medication not listed, including over the counter drugs, herbal medications, vitamins and or supplements as they may interact with your home medications. What How Much When Why Instructions Last Dose New acetaminophen-hydrocodone ([place] 325- 5 mg oral tablet) 1 tab(s) by mouth Every 4 hours as needed for Pain, scale 1-6 Acute post-operative pain Duration: 5 Days Pickup at [facility]/pharmacy #[id number] Unchanged acetaminophen (acetaminophen 500 mg oral capsule) 2 cap by mouth Every 4 hours as needed for for pain Unchanged ascorbic acid (Vitamin C 1000 mg oral tablet) 1 tab(s) by mouth Once a day Unchanged aspirin (Adult aspirin 81 mg oral capsule) 1 cap by mouth Once a day do not exceed 48 capsules in 24 hours Unchanged benazepril (benazepril 40 mg oral tablet) 1 tab(s) by mouth Once a day Unchanged calcium carbonate (calcium (as carbonate) 600 mg oral tablet) 2 tab(s) by mouth Once a day Unchanged DME (DME MISCellaneous) See instructions BD SYRINGE 3ML, NEEDLES 25G-1.5 INCHES. USE ONE SYRINGE Q 2WEEKS. Unchanged ergocalciferol (ergocalciferol 50,000 intl units (1.25 mg) oral capsule) 1 cap by mouth Every week Unchanged folic acid 800 Microgram Once a day Unchanged furosemide (furosemide 40 mg oral tablet) 1 tab(s) by mouth Once a day Duration: 90 Days Unchanged levothyroxine (levothyroxine 50 mcg (0.05 mg) oral tablet) 1 tab(s) by mouth Once a day X30 DAY(S. TAKE ON AN EMPTY STOMACH Unchanged lisdexamfetamine (Vyvanse 70 mg oral capsule) 1 cap by mouth Once a day (in the morning) Unable to concentrate Duration: 30 Days Unchanged multivitamin (Vitamin B Complex sublingual liquid) 1 Milliliter under the tongue Once a day hold under the tongue for 30 seconds before swallowing Unchanged niacin (niacin 500 mg oral capsule) 2 cap by mouth Once a day Unchanged omega-3 polyunsaturated fatty acids (omega-3 polyunsaturated fatty acids ethyl esters 1000 mg oral capsule) 2 cap by mouth Two (2) times a day Unchanged potassium chloride (Klor-Con M20 oral tablet, extended release) 1 tab(s) by mouth Once a day Unchanged pregabalin (Lyrica 100 mg oral capsule) 1 cap by mouth Three (3) times a day Peripheral neuropathy Duration: 30 Days TAKE 1 CAPSULE BY MOUTH THREE TIMES DAILY Unchanged sildenafil (sildenafil 100 mg oral tablet) 1 tab(s) by mouth Once a day as needed for NEEDED FOR ERECTILE DYSFUNCTION Unchanged testosterone (Testosterone Cypionate 200 mg/ mL intramuscular solution) 2 Milliliter Intramuscular Every other week Male hypogonadism Duration: 30 Days Pharmacy Information [facility]/pharmacy #[id number]: [address] [place], [place] [id number] [phone] Please take this list to your next doctor s visit. Bring all medications you take, including over the counter medications, herbals and other supplements with you to your doctor s visit. Patients and families are reminded to discard old lists and to update any records with all medication providers or retail pharmacies. Medication Leaflets bupivacaine liposome (bue SHELTON a gallegos LYE brianne some) Exparel What is the most important information I should know about bupivacaine liposome? You may still feel numb or be unable to move the numbed area for up to 5 days after you are treated with bupivacaine liposome. What is bupivacaine liposome? Bupivacaine is an anesthetic (numbing medicine) that blocks nerve impulses in your body. Bupivacaine liposome is used as a local (in only one area) anesthetic to numb an area of your body for a minor surgery such as bunion removal or hemorrhoid surgery. Bupivacine liposome is also used as a nerve block after surgery on your shoulder or upper arm, to provide pain relief to the area. Bupivacaine may also be used for purposes not listed in this medication guide. What should I discuss with my healthcare provider before receiving bupivacaine liposome? You should not be treated with bupivacaine if you are allergic to it. Tell your doctor if you have ever had: an allergic reaction to any type of numbing medicine; liver disease; kidney disease; heart disease; a heart rhythm disorder; or seizures. It is not known whether this medicine will harm an unborn baby. Tell your doctor if you are . It may not be safe to breast-feed a baby while you are using this medicine. Ask your doctor about any risks. How is bupivacaine liposome given? Bupivacaine is given as an injection placed into an area near your surgical incision. You will receive this injection in a hospital or surgical setting. Bupivacaine liposome can have long-lasting or delayed effects. For at least 4 days (96 hours) after your surgery, tell any doctor or dentist who treats you that you recently received a bupivacaine liposome injection. Call your doctor if you have joint pain or stiffness, or weakness in any part of your body that occurs after your surgery, even months later. What happens if I miss a dose? Since bupivacaine liposome is used as a single dose, it does not have a daily dosing schedule. What happens if I overdose? Since this medication is given by a healthcare professional in a medical setting, an overdose is unlikely to occur. What should I avoid after receiving bupivacaine liposome? For at least 4 days (96 hours) after surgery, avoid using any pain or numbing medicines that contain lidocaine. This includes skin patches, sprays, creams, ointments, or gels applied to the skin. Follow your doctor's instructions. What are the possible side effects of bupivacaine liposome? Get emergency medical help if you have signs of an allergic reaction: hives, red rash, itching; sneezing, difficulty breathing; severe dizziness, vomiting; swelling of your face, lips, tongue, or throat. You will be watched closely after receiving bupivacaine liposome, to make sure you do not have a reaction to the medicine. Tell your caregivers at once if you have any of these signs of a serious side effect: ringing in your ears; drowsiness, feeling restless or anxious; feeling like you might pass out; speech or vision problems, a metallic taste in your mouth; numbness or tingling around your mouth; fast or slow heart rate, feeling short of breath, feeling unusually hot or cold; tremors, twitching, mood changes; ongoing numbness, weakness, or loss of movement where the medicine was injected; or joint pain or stiffness, or weakness in any part of your body for months after your surgery. You may still feel numb or be unable to move the numbed area for up to 5 days after you are treated with bupivacaine liposome. Common side effects include: nausea, vomiting; constipation; or fever. This is not a complete list of side effects and others may occur. Call your doctor for medical advice about side effects. You may report side effects to FDA at 8-203-UQL-7539. What other drugs will affect bupivacaine liposome? Other drugs may affect bupivacaine liposome, including prescription and xlzx-uyh-afczrke medicines, vitamins, and herbal products. Tell your doctor about all your current medicines and any medicine you start or stop using. Where can I get more information? Your doctor or pharmacist can provide more information about bupivacaine liposome. Remember, keep this and all other medicines out of the reach of children, never share your medicines with others, and use this medication only for the indication prescribed. Every effort has been made to ensure that the information provided by [employer]. ('[employer]') is accurate, up-to-date, and complete, but no guarantee is made to that effect. Drug information contained herein may be time sensitive. [employer] information has been compiled for use by healthcare practitioners and consumers in the [place] and therefore [employer] does not warrant that uses outside of the [place] are appropriate, unless specifically indicated otherwise. [employer] drug information does not endorse drugs, diagnose patients or recommend therapy. [employer] drug information is an informational resource designed to assist licensed healthcare practitioners in caring for their patients and/or to serve consumers viewing this service as a supplement to, and not a substitute for, the expertise, skill, knowledge and judgment of healthcare practitioners. The absence of a warning for a given drug or drug combination in no way should be construed to indicate that the drug or drug combination is safe, effective or appropriate for any given patient. [employer] does not assume any responsibility for any aspect of healthcare administered with the aid of information [employer] provides. The information contained herein is not intended to cover all possible uses, directions, precautions, warnings, drug interactions, allergic reactions, or adverse effects. If you have questions about the drugs you are taking, check with your doctor, nurse or pharmacist. Copyright 3361-9827 [employer]. Version: 4.01. Revision Date: 11/02/2017. Education Materials General Anesthesia, Adult, Care After This sheet gives you information about how to care for yourself after your procedure. Your health care provider may also give you more specific instructions. If you have problems or questions, contact your health care provider. What can I expect after the procedure? After the procedure, the following side effects are common: Pain or discomfort at the IV site. Nausea. Vomiting. Sore throat. Trouble concentrating. Feeling cold or chills. Weak or tired. Sleepiness and fatigue. Soreness and body aches. These side effects can affect parts of the body that were not involved in surgery. Follow these instructions at home: For at least 24 hours after the procedure: Have a responsible adult stay with you. It is important to have someone help care for you until you are awake and alert. Rest as needed. Do not: ? Participate in activities in which you could fall or become injured. ? Drive. ? Use heavy machinery. ? Drink alcohol. ? Take sleeping pills or medicines that cause drowsiness. ? Make important decisions or sign legal documents. ? Take care of children on your own. Eating and drinking Follow any instructions from your health care provider about eating or drinking restrictions. When you feel hungry, start by eating small amounts of foods that are soft and easy to digest (bland), such as toast. Gradually return to your regular diet. Drink enough fluid to keep your urine pale yellow. If you vomit, rehydrate by drinking water, juice, or clear broth. General instructions If you have sleep apnea, surgery and certain medicines can increase your risk for breathing problems. Follow instructions from your health care provider about wearing your sleep device: ? Anytime you are sleeping, including during daytime naps. ? While taking prescription pain medicines, sleeping medicines, or medicines that make you drowsy. Return to your normal activities as told by your health care provider. Ask your health care provider what activities are safe for you. Take veyy-svw-qshleoh and prescription medicines only as told by your health care provider. If you smoke, do not smoke without supervision. Keep all follow-up visits as told by your health care provider. This is important. Contact a health care provider if: You have nausea or vomiting that does not get better with medicine. You cannot eat or drink without vomiting. You have pain that does not get better with medicine. You are unable to pass urine. You develop a skin rash. You have a fever. You have redness around your IV site that gets worse. Get help right away if: You have difficulty breathing. You have chest pain. You have blood in your urine or stool, or you vomit blood. Summary After the procedure, it is common to have a sore throat or nausea. It is also common to feel tired. Have a responsible adult stay with you for the first 24 hours after general anesthesia. It is important to have someone help care for you until you are awake and alert. When you feel hungry, start by eating small amounts of foods that are soft and easy to digest (bland), such as toast. Gradually return to your regular diet. Drink enough fluid to keep your urine pale yellow. Return to your normal activities as told by your health care provider. Ask your health care provider what activities are safe for you. This information is not intended to replace advice given to you by your health care provider. Make sure you discuss any questions you have with your health care provider. Document Released: 10/05/2001 Document Revised: 07/02/2018 Document Reviewed: 02/12/2018 [employer] Patient Education 2020 [place]. Open Hernia Repair, Adult Open hernia repair is a surgical procedure to fix a hernia. A hernia occurs when an internal organ or tissue pushes out through a weak spot in the abdominal wall muscles. Hernias commonly occur in the groin and around the navel. Most hernias tend to get worse over time. Often, surgery is done to prevent the hernia from becoming bigger, uncomfortable, or an emergency. Emergency surgery may be needed if abdominal contents get stuck in the opening (incarcerated hernia) or the blood supply gets cut off (strangulated hernia). In an open repair, an incision is made in the abdomen to perform the surgery. Tell a health care provider about: Any allergies you have. All medicines you are taking, including vitamins, herbs, eye drops, creams, and xsrz-dpa-nryxmpk medicines. Any problems you or family members have had with anesthetic medicines. Any blood or bone disorders you have. Any surgeries you have had. Any medical conditions you have, including any recent cold or flu symptoms. Whether you are or may be . What are the risks? Generally, this is a safe procedure. However, problems may occur, including: Long-lasting (chronic) pain. Bleeding. Infection. Damage to the testicle. This can cause shrinking or swelling. Damage to the bladder, blood vessels, intestine, or nerves near the hernia. Trouble passing urine. Allergic reactions to medicines. Return of the hernia. What happens before the procedure? Staying hydrated Follow instructions from your health care provider about hydration, which may include: Up to 2 hours before the procedure you may continue to drink clear liquids, such as water, clear fruit juice, black coffee, and plain tea. Eating and drinking restrictions Follow instructions from your health care provider about eating and drinking, which may include: 8 hours before the procedure stop eating heavy meals or foods such as meat, fried foods, or fatty foods. 6 hours before the procedure stop eating light meals or foods, such as toast or cereal. 6 hours before the procedure stop drinking milk or drinks that contain milk. 2 hours before the procedure stop drinking clear liquids. Medicines Ask your health care provider about: ? Changing or stopping your regular medicines. This is especially important if you are taking diabetes medicines or blood thinners. ? Taking medicines such as aspirin and ibuprofen. These medicines can thin your blood. Do not take these medicines before your procedure if your health care provider instructs you not to. You may be given antibiotic medicine to help prevent infection. General instructions You may have blood tests or imaging studies. Ask your health care provider how your surgical site will be marked or identified. If you smoke, do not smoke for at least 2 weeks before your procedure or for as long as told by your health care provider. Let your health care provider know if you develop a cold or any infection before your surgery. Plan to have someone take you home from the hospital or clinic. If you will be going home right after the procedure, plan to have someone with you for 24 hours. What happens during the procedure? To reduce your risk of infection: ? Your health care team will wash or sanitize their hands. ? Your skin will be washed with soap. ? Hair may be removed from the surgical area. An IV tube will be inserted into one of your veins. You will be given one or more of the following: ? A medicine to help you relax (sedative). ? A medicine to numb the area (local anesthetic). ? A medicine to make you fall asleep (general anesthetic). Your surgeon will make an incision over the hernia. The tissues of the hernia will be moved back into place. The edges of the hernia may be stitched together. The opening in the abdominal muscles will be closed with stitches (sutures). Or, your surgeon will place a mesh patch made of manmade (synthetic) material over the opening. The incision will be closed. A bandage (dressing) may be placed over the incision. The procedure may vary among health care providers and hospitals. What happens after the procedure? Your blood pressure, heart rate, breathing rate, and blood oxygen level will be monitored until the medicines you were given have worn off. You may be given medicine for pain. Do not drive for 24 hours if you received a sedative. This information is not intended to replace advice given to you by your health care provider. Make sure you discuss any questions you have with your health care provider. Document Released: 12/23/2001 Document Revised: 06/11/2018 Document Reviewed: 12/10/2016 Elsevier Patient Education 2020 [employer] Additional Information VACCINATE! IT SAVES LIVES! Members of the community who have not yet received the COVID-19 vaccine and would like to receive it can visit one of [facility] vaccine clinics. There are many vaccine clinic locations within the [facility]. For locations and available times, please visit [email or web address] It is important to note that some COVID mobile vaccine clinics are held outdoors and may be canceled in rainy or stormy conditions. To learn more about pediatric vaccinations (ages 5-11), we invite you to visit the [employer] webpage. [email or web address]/pages [email or web address]-[email or web address] sked-[email or web address].html To learn more about the COVID-19 vaccine, we invite you to visit the CDC website for a list of frequently asked questions.https://www.cdc.gov/[place] virus/2019-ncov/vaccines/faq.html [email or web address] Patient Portal Access Instructions: Stay connected with your healthcare team and access your personal medical information anytime with the [employer] Patient Portal. Please follow the directions below to create your [employer]unes account: 1.Access the email account you provided upon registration to the hospital/physician office.2.Look for an invitation email from [facility].3.Open the email and access the invitation link: Accept Invitation to [email or web address].Fill in the required monroy to create your account. To access your account, visit [email or web address]. Click the blue button labeled Access Patient Portal and then log in with the username and password that you created in the steps above. You will be able to view your test results, lab results, a summary of your visits, upcoming appointments and more. There is also a convenient messaging option where you can send secure messages to your provider. In addition, you will have the ability to download any documents or summaries to your computer and/or send the information securely to a physician. Remember that your healthcare information is confidential, so carefully consider who you will allow to register on the [facility] for access to your information. You can also access the [facility] Patient Portal on the [place] [facility] larisa. Simply click on Patient Portal and then log into your account. If you would like to receive a full copy of your medical records, please contact the [facility] Medical Records Department by calling [phone], Thursday through Thursday between 8 a.m. and 4:30 p.m. HOW TO SAFELY DISPOSE OF PRESCRIPTION MEDICATIONS Please use one of the following methods to safely dispose of your unused medications. 1.Use a drug disposal kit: the drug disposal pouch allows you to safely discard your old and unused drugs. Ask your nurse to give you one when you are discharged.2.Visit a local take-back location: Many local pharmacies and police departments have programs that collect old and unwanted prescription drugs. Call your local pharmacy or go to [email or web address]/[email or web address] to find one close to you.3.Make use of household items: Use cat litter or old coffee grounds to dispose medications if other options are not available. Mix your drugs with these household products, seal them in an airtight container and throw it into the garbage. Call [facility]: [phone] to be sure your drugs can be disposed of in this way. Some medicines may require a different approach.4.Never flush your medications down the toilet. IF YOU HAVE BEEN PRESCRIBED AN OPIOID FOR PAIN If you have been prescribed an opioid (such as hydrocodone, oxycodone or morphine), it is critical to understand the possible side effects and risks of opioid pain medications. Even when taken as directed, opioids can have several side effects including: Tolerance, meaning you might need to take more of a medication for the same pain relief. Nausea, vomiting and/or constipation. Sleepiness, dizziness, dry mouth, confusion, depression or itching. Physical dependence, meaning you have withdrawal symptoms when a medication is stopped, can develop within a few days. KNOW YOUR RESPONSIBILITIES It is important to know exactly how much and how often to take the opioid pain medications you are prescribed. Never take opioids in higher amounts or more often than prescribed. Do not combine opioids with alcohol or other drugs that cause drowsiness, such as benzodiazepines, also known as benzos, including diazepam and alprazolam, muscle relaxants or sleep aids. Never sell or share prescription opioids. This is illegal. Store opioids in a secure place and out of reach of others (including children, family, friends and visitors). The last page of this document has been signed and retained as a CHART COPY. Signatures Patient Education Materials General Anesthesia, Adult, Care After Open Hernia Repair, Adult Medication Leaflets Exparel My discharge plan and instructions have been reviewed and explained to me and I,CHRISTOPHER SILVA understand my current condition and have read and understand these discharge instructions. I have received a written copy of the plan/instructions. If I have questions, I am aware that I should contact my doctor. 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 Family's history: negative. Health Status Allergies: Allergic Reactions (Selected) Severe Dilaudid- Vomiting., Allergies (1) ActiveSeverityReaction DilaudidSevereVomiting Current medications: (Selected) Inpatient Medications Ordered Dextrose 50% IV Push: 25 gram(s), 50 mL, IV Push, AsDirected, PRN: Low blood sugar Kefzol: 3 gram(s), 200 mL/hr, IV Piggyback, PREOP pharm LR 1000 mL: 20 mL/hr, Intravenous gabapentin: 300 mg, 1 cap(s), Oral, PREOP pharm lidocaine 1% preservative-free injectable solution: 2.5 mg, 0.25 mL, Intradermal, prep pharm Prescriptions Prescribed DME MISCellaneous: See Instructions, BD SYRINGE 3ML, NEEDLES 25G-1.5 INCHES. USE ONE SYRINGE Q 2WEEKS., 6 EA, 11 Refill(s) Klor-Con M20 oral tablet, extended release: 1 tab(s), Oral, qDay, 90 tab(s), 1 Refill(s) Lyrica 100 mg oral capsule: 100 mg, 1 cap(s), Oral, TID, for 30 day(s), TAKE 1 CAPSULE BY MOUTH THREE TIMES DAILY, 90 cap(s), 0 Refill(s) Testosterone Cypionate 200 mg/mL intramuscular solution: 400 mg, 2 mL, Intramuscular, q2wk, for 30 day(s), 4 mL, 2 Refill(s) Vyvanse 70 mg oral capsule: 70 mg, 1 cap(s), Oral, qAM, for 30 day(s), 30 cap(s), 0 Refill(s) benazepril 40 mg oral tablet: 1 tab(s), Oral, qDay, 90 tab(s), 1 Refill(s) ergocalciferol 50,000 intl units (1.25 mg) oral capsule: 1 cap(s), Oral, qWeek, 13 cap(s), 1 Refill(s) furosemide 40 mg oral tablet: 1 tab(s), Oral, qDay, for 90 day(s), 90 tab(s), 1 Refill(s) levothyroxine 50 mcg (0.05 mg) oral tablet: 1 tab(s), Oral, qDay, X30 DAY(S. TAKE ON AN EMPTY STOMACH, 90 tab(s), 1 Refill(s) omega-3 polyunsaturated fatty acids ethyl esters 1000 mg oral capsule: 2 cap(s), Oral, BID, 360 cap(s), 1 Refill(s) sildenafil 100 mg oral tablet: 1 tab(s), Oral, qDay, PRN: NEEDED FOR ERECTILE DYSFUNCTION, 5 tab(s), 5 Refill(s) Documented Medications Documented Adult aspirin 81 mg oral capsule: 81 mg, 1 cap(s), Oral, qDay, do not exceed 48 capsules in 24 hours, 30 cap(s), 0 Refill(s) Vitamin B Complex sublingual liquid: 1 mL, Sublingual, qDay, hold under the tongue for 30 seconds before swallowing, 59 mL, 0 Refill(s) Vitamin C 1000 mg oral tablet: 1,000 mg, 1 tab(s), Oral, qDay, 30 tab(s), 0 Refill(s) acetaminophen 500 mg oral capsule: 1,000 mg, 2 cap(s), Oral, q4h, PRN: for pain, 120 cap(s), 0 Refill(s) calcium (as carbonate) 600 mg oral tablet: 1,200 mg, 2 tab(s), Oral, qDay, 0 Refill(s) folic acid: 800 mcg, qDay, 0 Refill(s) niacin 500 mg oral capsule: 1,000 mg, 2 cap(s), Oral, qDay, 0 Refill(s), Medications (5) Active Scheduled: (3) ceFAZolin 3 gram(s), IV Piggyback, PREOP pharm gabapentin 300 mg Capsule 300 mg 1 cap(s), Oral, PREOP pharm lidocaine 1% (MPF) 2 mL vial pf 2.5 mg 0.25 mL, Intradermal, prep pharm Continuous: (1) Lactated Ringers Infusion 1000 mL 1,000 mL, Intravenous, 20 mL/hr PRN: (1) dextrose 50% Solution Disp syringe 50 mL 25 gram(s) 50 mL, IV Push, AsDirected Problem list: Medical Abdominal pain / SNOMED CT 89014867 / Confirmed Aortic stenosis / SNOMED CT 870442898 / Confirmed Atypical chest pain / SNOMED CT 294599381 / Confirmed Bradycardia / SNOMED CT 52172363 / Confirmed Erectile dysfunction / SNOMED CT 3819056043 / Confirmed Hiatal hernia / SNOMED CT 505775809 / Confirmed Left hip pain / SNOMED CT 36454016 / Confirmed Aortic valve replaced / SNOMED CT 1016272860 / Confirmed Hypertension / SNOMED CT 4776531399 / Confirmed Hypothyroid / SNOMED CT 35194129 / Confirmed Decreased exercise tolerance / SNOMED CT 557066123 / Confirmed Back injury / SNOMED CT 1800556814 / Confirmed Strain of left groin / SNOMED CT 84803454 / Confirmed Intertrigo / SNOMED CT 05661005 / Confirmed Male hypogonadism / SNOMED CT 63308553 / Confirmed Hyperlipidemia, mixed / SNOMED CT 481042611 / Confirmed Influenza vaccine needed / SNOMED CT 941742575 / Confirmed RADHA - Obstructive sleep apnea / SNOMED CT 9782065154 / Confirmed Toe osteomyelitis / SNOMED CT 1580554200 / Confirmed Right wrist pain / SNOMED CT 85316681 / Confirmed Pain of left hand / SNOMED CT 427855325247540 Pain of left shoulder joint / SNOMED CT 567672145445923 Pain of right shoulder joint / SNOMED CT 577626908865257 Prostate cancer screening / SNOMED CT 568193872 / Confirmed Well adult exam / SNOMED CT 139699000 / Confirmed Peripheral neuropathy / SNOMED CT 7069036086 / Confirmed Elevated troponin / SNOMED CT 7607894645 / Confirmed Left shoulder pain / SNOMED CT 51704580 / Confirmed Umbilical hernia / SNOMED CT 6084238104 / Confirmed Unable to concentrate / SNOMED CT 76622238 / Confirmed Need for hepatitis C screening test / SNOMED CT 452049558 / Confirmed Vitamin D deficiency / SNOMED CT 44637558 / Confirmed, Active Problems (35) Abdominal pain Aortic stenosis Aortic valve replaced Atypical chest pain Back injury Bradycardia Decreased exercise tolerance Elevated troponin Erectile dysfunction GERD (gastroesophageal reflux disease) Hepatitis C Hiatal hernia Hyperlipidemia, mixed Hypertension Hypothyroid Influenza vaccine needed Intertrigo Left hip pain Left shoulder pain Male hypogonadism Need for hepatitis C screening test RADHA - Obstructive sleep apnea Pain of left hand Pain of left shoulder joint Pain of right shoulder joint Peripheral neuropathy Prostate cancer screening Rheumatoid arthritis Right wrist pain Strain of left groin Toe osteomyelitis Umbilical hernia Unable to concentrate Vitamin D deficiency Well adult exam Histories Past Medical History: No active or resolved past medical history items have been selected or recorded. Family History: Arthritis Father Paternal Grandmother Procedure history: YAG (yttrium aluminum garnet) laser vitreolysis ([id number]) on 04/05/2024 at 68 Years. Comments: 05/16/2024 9:21 Becki Ayers CMA Left eye YAG (yttrium aluminum garnet) laser vitreolysis ([id number]) on 03/22/2024 at 68 Years. Comments: 05/16/2024 9:20 Becki Ayers CMA Right eye Partial amputation of toe of left foot ([id number]) on 03/18/2024 at 68 Years. Comments: 05/16/2024 9:19 Becki Ayers CMA 2nd toe Shoulder replacement ([id number]) on 06/12/2022 at 66 Years. Comments: 05/16/2024 9:19 Becki Ayers CMA Left Hip replacement ([id number]) on 02/25/2022 at 66 Years. Comments: 05/16/2024 9:18 Becki Ayers CMA Left TAVR - transcatheter aortic valve replacement ([id number]) on 11/23/2020 at 65 Years. Cataract ([id number]) on 06/10/2018 at 62 Years. Comments: 05/16/2024 8:57 Becki Ayers CMA left eye Cataract ([id number]) on 05/03/2018 at 62 Years. Comments: 05/16/2024 8:57 Becki Ayers CMA right eye Colonoscopy ([id number]) on 03/09/2017 at 61 Years. Comments: 05/16/2024 8:56 Becki Ayers CMA Polyp removal, lost blood, required over night stay in hospital, polyp benign Colonoscopy ([id number]) on 12/18/2016 at 61 Years. Knee replacement planned ([id number]) on 05/23/2010 at 54 Years. Comments: 05/16/2024 8:54 Becki Ayers CMA Left knee Knee replacement ([id number]) on 04/25/2010 at 54 Years. Comments: 05/16/2024 8:53 Becki Ayers CMA Right knee. Laminectomy ([id number]). Comments: 05/16/2024 8:47 Becki Ayers CMA L3-L4, 1975 Fusion ([id number]). Comments: 05/16/2024 8:48 Becki Ayers CMA L3-L4, 1985 Radial keratotomy ([id number]). Comments: 05/16/2024 8:49 Becki Ayers CMA Bilateral eyes, 1986 Knee ([id number]). Comments: 05/16/2024 8:50 Becki Ayers CMA Left knee, bilateral meniscectomies, 2001 Appendectomy ([id number]). Comments: 05/16/2024 8:46 Becki Ayers CMA 1966 Acromioclavicular joint ([id number]). Comments: 05/16/2024 8:48 Becki Ayers CMA Right side, reconstruction, 1981 Elbow ([id number]). Comments: 05/16/2024 8:48 Becki Ayers CMA Left side, repair, 1982 Carpal tunnel release ([id number]). Comments: 05/16/2024 8:50 Becki Ayers CMA Right wrist, 1999 Knee ([id number]). Comments: 05/16/2024 8:51 Becki Ayers CMA Right knee, Bilateral meniscectomies, 2002 Radiation ([id number]). Comments: 05/16/2024 8:51 Becki Ayers CMA Treatment for prostate cancer, 2008 Microwave ([id number]). Comments: 05/16/2024 8:52 Becki Ayers CMA Treatment for prostate, 2009 Gum ([id number]). Comments: 05/16/2024 8:53 Becki Ayers CMA Surgery on upper back bilateral gum, 2010 Tooth ([id number]). Comments: 05/16/2024 8:54 Becki Ayers O DIGITAL DEVELOPER Removal, 2015 Social History: Social & Psychosocial Habits Alcohol Comment: none - 07/14/2019 09:40 - Jyoti Howard LPN Substance Abuse 12/14/2024 Use: Never Tobacco 12/14/2024 Tobacco Use: Former smoker, quit more Nutrition/Health 12/14/2024 Caffeine intake amount: occasional Physical Examination No qualifying data available General: Alert and oriented. Airway: Normal temporomandibular joint mobility. Mallampati classification: II (soft palate, fauces, uvula visible). Dentition Evaluation: Denies loose/chipped teeth. Respiratory: Lungs are clear to auscultation, Respirations are non-labored. Cardiovascular: Normal rate, Regular rhythm. Neurologic: Alert, Oriented. Review / Management Results review: No qualifying data available , Lab results 12/19/2024 9:00 EDT Designated Person #1 We May Share PHI FRANCY SILVA Designated Person #1 Relationship Spouse Designated Person #2 We May Share PHI LILLI VARGAS [phone] Designated Person #2 Relationship Sibling Privacy Restrictions Requested None Status N/A Sensory Deficits None Diagnosed With Sleep Apnea Yes Advanced Directives No - refuses information Infectious Disease Symptoms Patient states no symptoms Infectious Disease Recent Exposure No Alcohol and Drug Use No Employee of Institutional Living No Health Care 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 No History of Exposure to TB No History of Positive Chest X-Ray for TB No History of Positive TB Skin Test No Homeless No Known Immunosuppression No Recent Immigrant No Resident of Institutional Living No Bloody Sputum No Fatigue No Fever No Loss of Appetite No Night Sweats No Persistent Cough > 3 Weeks No Weight Loss No Patient Aware Date/Time Of Surgery Yes Pre-Op Patient Education NPO after midnight, No jewelry, Responsible Democrat, Aware of surgery location, Pre-op education done, 1 bottle CHG wash with instructions given, No ordered medications, SSI prevention handout given SN - Preprocedure Comments Spoke with patient, Verbalizes/Nonverbally indicates understanding Barriers to Learning None evident Teaching Method Explanation Preferred Spoken Language Czech Preferred Written Language Czech Teaching Evaluation Verbalizes/Nonverbally indicates understanding Safety Brochure Information Reviewed Unable to complete Ophelia Burns Video Viewed No Patient's Current Physicians Patient's Current Physicians History of Malignant Hyperthermia No Discharge To, Anticipated Home independently Prev Test Positive/Diagnosis w/COVID-19 No Current Quarantine/Isolated any Illness No Any Contact with Sick Animals/Birds No Traveled Anywhere in Last 30 Days No Lost Weight Unintentionally Recently No Eat Poorly Due to Decreased Appetite No Total MST Score 0 N/A Personal Devices, Patient Valuables Glasses Anesthesia/Transfusions Prior anesthesia Admission Note-Nursing Same Day Patient History 12/19/2024 8:51 EDT Urinary Elimination Voiding, no difficulties IV Present Present Allergies Yes Consent Form Signed Yes Patient Dressed In Hospital top CHG Preoperative Wash/Wipe Night before procedure, Day of procedure Preop Nasal Swab Povidone-Iodine CHG Skin Prep Completed for Eligible Surgery History & Physical Update On Chart Yes History & Physical On Chart Yes Belongings At Bedside Glasses, Pants, Shirt, Shoes Personal Home Medications Received No home medications were brought in NPO Status Maintained Allergy Band on and Verified Yes Patient ID Band on and Verified Yes Implants Verified Yes Pacemaker/AICD Verified Yes Site Verified by Patient/Family Yes Anesthesia Consent Signed Yes Blood Consent Signed Yes Last Fluid Intake 12/18/2024 21:00 Last Food Intake 12/18/2024 19:00 . Assessment and Plan [place] [employer]hesi[employer] (ASA) physical status classification: Class III. Anesthetic Preoperative Plan Anesthetic technique: General. Maintenance airway: Oral endotracheal tube. Postoperative pain management: Per surgeon. Risks discussed: nausea, vomiting, sore throat, dental injury, hypotension, allergic reaction, serious complications. Informed consent: signed by patient. Digitally Signed by NISA HAWKINS on 12/19/2024 09:02 AM [facility] 11-02-2024 Evaluation note Diagnosis Onset Date Resolution Cool skin acute November 02 8:38am Other specified peripheral vascular diseases acute November 02, 2024 8:38am [facility] Work Phone: 1(415) 984-222604-23-2025 Evaluation note* Diagnosis Onset Date Resolution Status Admit Date Cool skin acute November 02 8:38am Other specified peripheral vascular diseases acute November 02 8:38am History of transcatheter aor tic valve replacement (TAVR) November 26, 2020 acute December 12:51pm Obesity acute December 13, 2024 12:51pm Dyslipidemia chronic December 13 12:51pm Essential (primary) hypertension chronic December 13, 2024 12:51pm 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 December 13 12:51pm [facility] Work Phone: 1(440) 542-109204-23-2025 Evaluation note* Diagnosis Onset Date Resolution Status Admit Date Cool skin acute November 02 8:38am Other specified peripheral vascular diseases acute November 02 8:38am History of transcatheter aor tic valve replacement (TAVR) November 26, 2020 acute December 12:51pm Obesity acute December 13, 2024 12:51pm Preoperative clearance acute Ju 2024 12:51pm Dyslipidemia chronic December 13 12:51pm Essential (primary) hypertension chronic December 13, 2024 12:51pm 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 December 13 12:51pm [facility] Work Phone: 1(748) 942-869711-11-2024 Evaluation + Plan noteExtracted from: Title:Clinical Document Author:THOMAS IBRAHIM Date:05/23/24 [place] ADMISSION HISTORY AN D PHYSICIAL CHIEF COMPLAINT: HISTORY OF PRESENT ILLNESS: REVIEW OF SYSTEMS: ACTIVE PROBLEMS: (31) Abdominal pain (14525684) Aortic stenosis (075405626) Aortic valve replaced (2783547625) Atypical chest pain (339063363) Back injury (5510341220) Bradycardia (65922592) Decreased exercise tolerance (218791982) Elevated troponin (4618058146) Erectile dysfunction (5095422754) Hiatal hernia (434798657) Hyperlipidemia, mixed (331021120) Hypertension (2450462230) Hypothyroid (26199361) Influenza vaccine needed (155474730) Intertrigo (12746822) Left hip pain (26583257) Left shoulder pain (94266796) Male hypogonadism (46300506) Need for hepatitis C screening test (635723198) RADHA - Obstructive sleep apnea (4204188857) Pain of left hand (173373803489098) Pain of left shoulder joint (862053553869794) Pain of right shoulder joint (591258910598081) Peripheral neuropathy (4107907908) Prostate cancer screening (606320573) Right wrist pain (94946819) Strain of left groin (72160964) Toe osteomyelitis (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 Weights display the last 5 within 7 days. Initial Wt: 05/23 142.5 kg 314 lb Current Wt: 05/23 142.5 kg 314 lb GENERAL: HEENT: CARDIOVASCULAR: RESPIRATORY: ABDOMEN: EXREMETIES: NEUROLOGICAL: PSYCHIATRIC: LABS: No 36hr Lab Data DIAGNOSTICS: IMPRESSION: PLAN: History and Physical Update I have examined the patient; reviewed the H&P and there are no changes to the H&P unless noted below. Future Appointments Appointment Date:08/01/2024 08:00:00 AM Scheduled Provider:RENALDO ORDONEZ Location:[facility] Appointment Type:PC Wellness Annual w/Labs [facility] 11-11-2024 Hospital Discharge instructions Patient Education 05/23/2024 09:58:22 Monitored Anesthesia Care, Care After Monitored Anesthesia Care, Care After These instructions provide you with information about caring for yourself after your procedure. Your health care provider may also give you more specific instructions. Your treatment has been plannedaccording to current medical practices, but problems sometimes occur. Call your health care provider if you have any problems or questions after your procedure. What can I expect after the procedure? After your procedure, you may: Feel sleepy for several hours. Feel clumsy and have poor balance for several hours. Feel forgetful about what happened after the procedure. Have poor judgment for several hours. Feel nauseous or vomit. Have a sore throat if you had a breathing tube during the procedure. Follow these instructions at home: For at least 24 hours after the procedure: Have a responsible adult stay with you. It is important to have someone help care for you until youare awake and alert. Rest as needed. Do not: ?Participate in activities in which you could fall or become injured. ?Drive. ?Use heavy machinery. ?Drink alcohol. ?Take sleeping pills or medicines that cause drowsiness. ?Make important decisions or sign legal documents. ?Take care of children on your own. Eating and drinking Follow the diet that is recommended by your health care provider. If you vomit, drink water, juice, or soup when you can drink without vomiting. Make sure you have little or no nausea before eating solid foods. General instructions Take ftzn-xyx-lsmintj and prescription medicines only as told by your health care provider. If you have sleep apnea, surgery and certain medicines can increase your risk for breathing problems. Follow instructions from your health care provider about wearing your sleep device: ?Anytime you are sleeping, including during daytime naps. ?While taking prescription pain medicines, sleeping medicines, or medicines that make you drowsy. If you smoke, do not smoke without supervision. Keep all follow-up visits as told by your health care provider. This is important. Contact a health care provider if: You keep feeling nauseous or you keep vomiting. You feel light-headed. You develop a rash. You have a fever. Get help right away if: You have trouble breathing. Summary For several hours after your procedure, you may feel sleepy and have poor judgment. Have a responsible adult stay with you for at least 24 hours or until you are awake and alert. This information is not intended to replace advice given to you by your health care provider. Make sure you discuss any questions you have with your health care provider. Document Released: 10/19/2016 Document Revised: 09/27/2018 Document Reviewed: 10/19/2016 [employer] Patient Education 2020 [place]. 05/23/2024 09:58:05 9 - AO Minor Esophagogastroduodenoscopy (09/23) (CUSTOM) Esophagogastroduodenoscopy This is an endoscopic procedure (a procedure that uses a device like a flexible telescope) that allows your caregiver to view the upper stomach and small bowel. This test allows your caregiver to look at the esophagus. The esophagus carries food from your mouth to your stomach. They can also look at your duodenum. This is the first part of the small intestine that attaches to the stomach. This test is used to detect problems in the bowel such as ulcers and inflammation. MEANING OF TEST Your caregiver will go over the test results with you and discuss the importance and meaning of your results, as well as treatment options and the need for additional tests if necessary. OBTAINING THE TEST RESULTS Your caregiver s office will call you with the results of the test. POST SEDATION INSTRUCTIONS Rest at home today. Since your coordination may be impaired, be cautious on stairways, do not drive any vehicle or operate any heavy machinery, or use any sharp instruments for the remainder of the day. Do not drink any alcoholic beverages or make any major decisions for 24 hours. POST PROCEDURE INSTRUCTIONS Progress slowly with full liquids then resume previous diet and medications. Belching or passing of gas is to be expected. Notify the physician if you have severe chest pain, fever, or if difficulty when swallowing persists. 09/20/13 Custom Follow Up Care 05/06/2024 15:14:27 With:THOMAS IBRAHIM Address: [address] [place] [address] [address] [place] [address]- [phone] Business (1) When: Unknown Comments:CALL TO SCHEDULE FOLLOW UP IN 2 WEEKS [facility] 11-11-2024 Note Discharge Instructions Thank you for allowing [place] to assist you with your healthcare needs. The following is importantdischarge information regarding your hospital visit. Your Care Team AURY SCHNEIDER DO What to do next Scheduled Follow-Up Appointments Appointment Type When With Where Contact Information StatusPC Wellness Annual w/Labs 08/01/2024 08:00 AM EST RENALDO ORDONEZ APRN-ANGELINA [facility] Confirmed Follow Up Appointments Follow Up with THOMAS IBRAHIM Where:[address] [phone]- [phone] Business (1) Additional Information: CALL TO SCHEDULE FOLLOW UP IN 2 WEEKS The Following Activity and Diet Have Been Ordered for You Discharge Activity - Ordered -- NO activity restrictions, 05/23/24 9:40:00 EST Discharge Diet - Ordered -- Follow the post-operative/post-procedure diet instructions provided by your physician's office.,05/23/24 9:40:00 EST The Following Equipment Has Been Ordered for You Discharge Home Equipment Discharge Wound Care - Ordered -- Follow the post-operative/post-procedure wound care instructions provided by your physician's office., 05/23/24 9:40:00 EST Allergies Dilaudid(Severe) Vomiting Medications Please ask your primary doctor or pharmacist before taking any other medication not listed, including over the counter drugs, herbal medications, vitamins and or supplements as they may interact withyour home medications. What How Much When Why Instructions Last Dose Unchanged acetaminophen (acetaminophen 500 mg oral capsule) 2 cap by mouth Every 4 hours as needed for for pain Unchanged ascorbic acid (Vitamin C 1000 mg oral tablet) 1 tab(s) by mouth Once a day Unchanged aspirin (Adult aspirin 81 mg oral capsule) 1 cap by mouth Once a day do not exceed 48 capsules in 24 hours Unchanged benazepril (benazepril 40 mg oral tablet) 1 tab(s) by mouth Once a day Unchanged calcium carbonate (calcium (as carbonate) 600 mg oral tablet) 2 tab(s) by mouth Once a day Unchanged DME (DME MISCellaneous) See instructions BD SYRINGE 3ML, NEEDLES 25G-1.5 INCHES. USE ONE SYRINGE Q 2WEEKS. Unchanged ergocalciferol (ergocalciferol 50,000 intl units (1.25 mg) oral capsule) 1 cap by mouth Every week Unchanged folic acid 800 Microgram Once a day Unchanged furosemide (furosemide 40 mg oral tablet) 1 tab(s) by mouth Once a day Duration: 90 Days Unchanged levothyroxine (levothyroxine 50 mcg (0.05 mg) oral tablet) 1 tab(s) by mouth Once a day X30 DAY(S. TAKE ON AN EMPTY STOMACH Unchanged lisdexamfetamine (Vyvanse 60 mg oral capsule) 1 cap by mouth Once a day (in the morning) Unable to concentrate Duration: 30 Days Unchanged multivitamin (Vitamin B Complex sublingual liquid) 1 Milliliter under the tongue Once a day hold under the tongue for 30 seconds before swallowing Unchanged niacin (niacin 500 mg oral capsule) 1 cap by mouth Once a day Unchanged omega-3 polyunsaturated fatty acids (omega-3 polyunsaturated fatty acids ethyl esters 1000 mg oral capsule) 2 cap by mouth Two (2) times a day Unchanged potassium chloride (Klor-Con M20 oral tablet, extended release) 1 tab(s) by mouth Once a day Unchanged pregabalin (Lyrica 100 mg oral capsule) 1 cap by mouth Three (3) times a day Peripheral neuropathy Duration: 30 Days TAKE 1 CAPSULE BY MOUTH THREE TIMES DAILY Unchanged sildenafil (sildenafil 100 mg oral tablet) 1 tab(s) by mouth Once a day as needed for NEEDED FOR ERECTILE DYSFUNCTION Unchanged testosterone (Testosterone Cypionate 200 mg/ mL intramuscular solution) 1 Milliliter Intramuscular Every other week Male hypogonadism Duration: 30 Days Please take this list to your next doctor s visit. Bring all medications you take, including over the counter medications, herbals and other supplements with you to your doctor s visit. Patients and families are reminded to discard old lists and to update any records with all medication providers or retail pharmacies. Education Materials Monitored Anesthesia Care, Care After These instructions provide you with information about caring for yourself after your procedure. Your health care provider may also give you more specific instructions. Your treatment has been plannedaccording to current medical practices, but problems sometimes occur. Call your health care provider if you have any problems or questions after your procedure. What can I expect after the procedure? After your procedure, you may: Feel sleepy for several hours. Feel clumsy and have poor balance for several hours. Feel forgetful about what happened after the procedure. Have poor judgment for several hours. Feel nauseous or vomit. Have a sore throat if you had a breathing tube during the procedure. Follow these instructions at home: For at least 24 hours after the procedure: Have a responsible adult stay with you. It is important to have someone help care for you until youare awake and alert. Rest as needed. Do not: ? Participate in activities in which you could fall or become injured. ? Drive. ? Use heavy machinery. ? Drink alcohol. ? Take sleeping pills or medicines that cause drowsiness. ? Make important decisions or sign legal documents. ? Take care of children on your own. Eating and drinking Follow the diet that is recommended by your health care provider. If you vomit, drink water, juice, or soup when you can drink without vomiting. Make sure you have little or no nausea before eating solid foods. General instructions Take ipox-kzs-tjajwbk and prescription medicines only as told by your health care provider. If you have sleep apnea, surgery and certain medicines can increase your risk for breathing problems. Follow instructions from your health care provider about wearing your sleep device: ? Anytime you are sleeping, including during daytime naps. ? While taking prescription pain medicines, sleeping medicines, or medicines that make you drowsy. If you smoke, do not smoke without supervision. Keep all follow-up visits as told by your health care provider. This is important. Contact a health care provider if: You keep feeling nauseous or you keep vomiting. You feel light-headed. You develop a rash. You have a fever. Get help right away if: You have trouble breathing. Summary For several hours after your procedure, you may feel sleepy and have poor judgment. Have a responsible adult stay with you for at least 24 hours or until you are awake and alert. This information is not intended to replace advice given to you by your health care provider. Make sure you discuss any questions you have with your health care provider. Document Released: 10/19/2016 Document Revised: 09/27/2018 Document Reviewed: 10/19/2016 [employer] Patient Education 2020 [employer] Esophagogastroduodenoscopy This is an endoscopic procedure (a procedure that uses a device like a flexible telescope) that allows your caregiver to view the upper stomach and small bowel. This test allows your caregiver to look at the esophagus. The esophagus carries food from your mouth to your stomach. They can also look at your duodenum. This is the first part of the small intestine that attaches to the stomach. This test is used to detect problems in the bowel such as ulcers and inflammation. MEANING OF TEST Your caregiver will go over the test results with you and discuss the importance and meaning of your results, as well as treatment options and the need for additional tests if necessary. OBTAINING THE TEST RESULTS Your caregiver s office will call you with the results of the test. POST SEDATION INSTRUCTIONS Rest at home today. Since your coordination may be impaired, be cautious on stairways, do not drive any vehicle or operate any heavy machinery, or use any sharp instruments for the remainder of the day. Do not drink any alcoholic beverages or make any major decisions for 24 hours. POST PROCEDURE INSTRUCTIONS Progress slowly with full liquids then resume previous diet and medications. Belching or passing of gas is to be expected. Notify the physician if you have severe chest pain, fever, or if difficulty when swallowing persists. 09/20/13 Custom Additional Information VACCINATE! IT SAVES LIVES! Members of the community who have not yet received the COVID-19 vaccine and would like to receive it can visit one of [facility] vaccine clinics. There are many vaccine clinic locations within the [facility]. For locations and available times, please visit [email or web address].[place].gov/. It is important to note that some COVID mobile vaccine clinics are held outdoors and may be canceled in rainy or stormy conditions. To learn more about pediatric vaccinations (ages 5-11), we invite you to visit the [facility] webpage. [email or web address]/[email or web address]-[email or web address] stions.htmlTo learn more about the COVID-19 vaccine, we invite you to visit the CDC website for a list of frequently asked questions.https://www.cdc.gov/coronavirus/2019-ncov/vaccines/faq.html [email or web address] Patient Portal Access Instructions: Stay connected with your healthcare team and access your personal medical information anytime with the [email or web address] Patient Portal. Please follow the directions below to create your [email or web address] account: 1.Access the email account you provided upon registration to the hospital/physician office.2.Look for an invitation email from [facility].3.Open the email and access the invitation link: AcceptInvitation to [email or web address].Fill in the required monroy to create your account. To access your account, visit [email or web address]. Click the blue button labeled Access Patient Portal and then log in with the username and password that you created in the steps above. You will be able to view your test results, lab results, a summary of your visits, upcoming appointments and more. There is also a convenient messaging option where you can send secure messages to your p rovider. In addition, you will have the ability to download any documents or summaries to your computer and/or send the information securely to a physician. Remember that your healthcare information is confidential, so carefully consider who you will allowto register on the [email or web address] Patient Portal for access to your information. You can also access the [email or web address] Patient Portal on the [employer] larisa. Simply click on Patient Portal and then log into your account. If you would like to receive a full copy of your medical records, please contact the [facility] Medical Records Department by calling [phone], Thursday through Thursday between 8 a.m. and 4:30 p.m. HOW TO SAFELY DISPOSE OF PRESCRIPTION MEDICATIONS Please use one of the following methods to safely dispose of your unused medications. 1.Use a drug disposal kit: the drug disposal pouch allows you to safely discard your old and unuseddrugs. Ask your nurse to give you one when you are discharged.2.Visit a local take-back location: Many local pharmacies and police departments have programs that collect old and unwanted prescriptiondrugs. Call your local pharmacy or go to http://[email or web address]/0P9Fe3q to find one close to you.3.Make use of household items: Use cat litter or old coffee grounds to dispose medications if other options arenot available. Mix your drugs with these household products, seal them in an airtight container andthrow it into the garbage. Call [facility]: [phone] to be sure your drugs can be disposed of in this way. Some medicines may require a different approach.4.Never flush your medications down the toilet. IF YOU HAVE BEEN PRESCRIBED AN OPIOID FOR PAIN If you have been prescribed an opioid (such as hydrocodone, oxycodone or morphine), it is critical to understand the possible side effects and risks of opioid pain medications. Even when taken as directed, opioids can have several side effects including: Tolerance, meaning you might need to take more of a medication for the same pain relief. Nausea, vomiting and/or constipation. Sleepiness, dizziness, dry mouth, confusion, depression or itching. Physical dependence, meaning you have withdrawal symptoms when a medication is stopped, can develop within a few days. KNOW YOUR RESPONSIBILITIES It is important to know exactly how much and how often to take the opioid pain medications you are prescribed. Never take opioids in higher amounts or more often than prescribed. Do not combine opioids with alcohol or other drugs that cause drowsiness, such as benzodiazepines, also known as benzos, including diazepam and alprazolam, muscle relaxants or sleep aids. Never sell or share prescription opioids. This is illegal. Store opioids in a secure place and out of reach of others (including children, family, friends and visitors). The last page of this document has been signed and retained as a CHART COPY. Signatures Patient Education Materials Monitored Anesthesia Care, Care After 9 - AO Minor Esophagogastroduodenoscopy (09/23) (CUSTOM) Medication Leaflets My discharge plan and instructions have been reviewed and explained to me and I,CHRISTOPHER SILVA understand my current condition and have read and understand these discharge instructions. I have received a written copy of the plan/instructions. If I have questions, I am aware that I should contact my d caren. Patient/Senior Graduate Advisor Signature: Date/Time: Relationship to Patient: Witness Name/Signature: Date/Time: [facility]11-11-2024 Note Discharge Instructions Thank you for allowing [place] to assist you with your healthcare needs. The following is importantdischarge information regarding your hospital visit. Your Care Team AURY SCHNEIDER DO What to do next Scheduled Follow-Up Appointments Appointment Type When With Where Contact Information [facility] Annual w/Labs 08/01/2024 08:00 AM EST RENALDO ORDONEZ APRN-MAT WORKER [facility] Confirmed Follow Up Appointments Follow Up with THOMAS IBRAHIM Where:[address] [address] [phone] [facility] (1) Additional Information: CALL TO SCHEDULE FOLLOW UP IN 2 WEEKS The Following Activity and Diet Have Been Ordered for You Discharge Activity - Ordered -- NO activity restrictions, 05/23/24 9:40:00 EST Discharge Diet - Ordered -- Follow the post-operative/post-procedure diet instructions provided by your physician's office.,05/23/24 9:40:00 EST The Following Equipment Has Been Ordered for You Discharge Home Equipment Discharge Wound Care - Ordered -- Follow the post-operative/post-procedure wound care instructions provided by your physician's office., 05/23/24 9:40:00 EST Allergies Dilaudid(Severe) Vomiting Medications Please ask your primary doctor or pharmacist before taking any other medication not listed, including over the counter drugs, herbal medications, vitamins and or supplements as they may interact withyour home medications. What How Much When Why Instructions Last Dose Unchanged acetaminophen (acetaminophen 500 mg oral capsule) 2 cap by mouth Every 4 hours as needed for for pain Unchanged ascorbic acid (Vitamin C 1000 mg oral tablet) 1 tab(s) by mouth Once a day Unchanged aspirin (Adult aspirin 81 mg oral capsule) 1 cap by mouth Once a day do not exceed 48 capsules in 24 hours Unchanged benazepril (benazepril 40 mg oral tablet) 1 tab(s) by mouth Once a day Unchanged calcium carbonate (calcium (as carbonate) 600 mg oral tablet) 2 tab(s) by mouth Once a day Unchanged DME (DME MISCellaneous) See instructions BD SYRINGE 3ML, NEEDLES 25G-1.5 INCHES. USE ONE SYRINGE Q 2WEEKS. Unchanged ergocalciferol (ergocalciferol 50,000 intl units (1.25 mg) oral capsule) 1 cap by mouth Every week Unchanged folic acid 800 Microgram Once a day Unchanged furosemide (furosemide 40 mg oral tablet) 1 tab(s) by mouth Once a day Duration: 90 Days Unchanged levothyroxine (levothyroxine 50 mcg (0.05 mg) oral tablet) 1 tab(s) by mouth Once a day X30 DAY(S. TAKE ON AN EMPTY STOMACH Unchanged lisdexamfetamine (Vyvanse 60 mg oral capsule) 1 cap by mouth Once a day (in the morning) Unable to concentrate Duration: 30 Days Unchanged multivitamin (Vitamin B Complex sublingual liquid) 1 Milliliter under the tongue Once a day hold under the tongue for 30 seconds before swallowing Unchanged niacin (niacin 500 mg oral capsule) 1 cap by mouth Once a day Unchanged omega-3 polyunsaturated fatty acids (omega-3 polyunsaturated fatty acids ethyl esters 1000 mg oral capsule) 2 cap by mouth Two (2) times a day Unchanged potassium chloride (Klor-Con M20 oral tablet, extended release) 1 tab(s) by mouth Once a day Unchanged pregabalin (Lyrica 100 mg oral capsule) 1 cap by mouth Three (3) times a day Peripheral neuropathy Duration: 30 Days TAKE 1 CAPSULE BY MOUTH THREE TIMES DAILY Unchanged sildenafil (sildenafil 100 mg oral tablet) 1 tab(s) by mouth Once a day as needed for NEEDED FOR ERECTILE DYSFUNCTION Unchanged testosterone (Testosterone Cypionate 200 mg/ mL intramuscular solution) 1 Milliliter Intramuscular Every other week Male hypogonadism Duration: 30 Days Please take this list to your next doctor s visit. Bring all medications you take, including over the counter medications, herbals and other supplements with you to your doctor s visit. Patients and families are reminded to discard old lists and to update any records with all medication providers or retail pharmacies. Education Materials Monitored Anesthesia Care, Care After These instructions provide you with information about caring for yourself after your procedure. Your health care provider may also give you more specific instructions. Your treatment has been plannedaccording to current medical practices, but problems sometimes occur. Call your health care provider if you have any problems or questions after your procedure. What can I expect after the procedure? After your procedure, you may: Feel sleepy for several hours. Feel clumsy and have poor balance for several hours. Feel forgetful about what happened after the procedure. Have poor judgment for several hours. Feel nauseous or vomit. Have a sore throat if you had a breathing tube during the procedure. Follow these instructions at home: For at least 24 hours after the procedure: Have a responsible adult stay with you. It is important to have someone help care for you until youare awake and alert. Rest as needed. Do not: ? Participate in activities in which you could fall or become injured. ? Drive. ? Use heavy machinery. ? Drink alcohol. ? Take sleeping pills or medicines that cause drowsiness. ? Make important decisions or sign legal documents. ? Take care of children on your own. Eating and drinking Follow the diet that is recommended by your health care provider. If you vomit, drink water, juice, or soup when you can drink without vomiting. Make sure you have little or no nausea before eating solid foods. General instructions Take [id number] and prescription medicines only as told by your health care provider. If you have sleep apnea, surgery and certain medicines can increase your risk for breathing problems. Follow instructions from your health care provider about wearing your sleep device: ? Anytime you are sleeping, including during daytime naps. ? While taking prescription pain medicines, sleeping medicines, or medicines that make you drowsy. If you smoke, do not smoke without supervision. Keep all follow-up visits as told by your health care provider. This is important. Contact a health care provider if: You keep feeling nauseous or you keep vomiting. You feel light-headed. You develop a rash. You have a fever. Get help right away if: You have trouble breathing. Summary For several hours after your procedure, you may feel sleepy and have poor judgment. Have a responsible adult stay with you for at least 24 hours or until you are awake and alert. This information is not intended to replace advice given to you by your health care provider. Make sure you discuss any questions you have with your health care provider. Document Released: 10/19/2016 Document Revised: 09/27/2018 Document Reviewed: 10/19/2016 [employer] Patient Education 2020 [place]. Esophagogastroduodenoscopy This is an endoscopic procedure (a procedure that uses a device like a flexible telescope) that allows your caregiver to view the upper stomach and small bowel. This test allows your caregiver to look at the esophagus. The esophagus carries food from your mouth to your stomach. They can also look at your duodenum. This is the first part of the small intestine that attaches to the stomach. This test is used to detect problems in the bowel such as ulcers and inflammation. MEANING OF TEST Your caregiver will go over the test results with you and discuss the importance and meaning of your results, as well as treatment options and the need for additional tests if necessary. OBTAINING THE TEST RESULTS Your caregiver s office will call you with the results of the test. POST SEDATION INSTRUCTIONS Rest at home today. Since your coordination may be impaired, be cautious on stairways, do not drive any vehicle or operate any heavy machinery, or use any sharp instruments for the remainder of the day. Do not drink any alcoholic beverages or make any major decisions for 24 hours. POST PROCEDURE INSTRUCTIONS Progress slowly with full liquids then resume previous diet and medications. Belching or passing of gas is to be expected. Notify the physician if you have severe chest pain, fever, or if difficulty when swallowing persists. 09/20/13 Custom Additional Information VACCINATE! IT SAVES LIVES! Members of the community who have not yet received the COVID-19 vaccine and would like to receive it can visit one of [facility] vaccine clinics. There are many vaccine clinic locations within the [facility]. For locations and available times, please visit [email or web address].[place].gov/. It is important to note that some COVID mobile vaccine clinics are held outdoors and may be canceled in rainy or stormy conditions. To learn more about pediatric vaccinations (ages 5-11), we invite you to visit the [facility] webpage. [email or web address].[email or web address]/pages/[email or web address]-Mmurr-Xxvjwwkhuzo-Ymrpzkfkko-[email or web address]-Gmt stions.htmlTo learn more about the COVID-19 vaccine, we invite you to visit the CDC website for a list of frequently asked questions.https://www.cdc.gov/coronavirus/2019-ncov/vaccines/faq.html [facility] Patient Portal Access Instructions: Stay connected with your healthcare team and access your personal medical information anytime with the [email or web address] Patient Portal. Please follow the directions below to create your amazingtunes account: 1.Access the email account you provided upon registration to the hospital/physician office.2.Look for an invitation email from [facility].3.Open the email and access the invitation link: AcceptInvitation to [facility].4.Fill in the required monroy to create your account. To access your account, visit [employer] Technologyt. Click the blue button labeled Access Patient Portal and then log in with the username and password that you created in the steps above. You will be able to view your test results, lab results, a summary of your visits, upcoming appointments and more. There is also a convenient messaging option where you can send secure messages to your p [employer]vider. In addition, you will have the ability to download any documents or summaries to your computer and/or send the information securely to a physician. Remember that your healthcare information is confidential, so carefully consider who you will allowto register on the [email or web address] Patient Portal for access to your information. You can also access the [facility] Patient Portal on the [facility] larisa. Simply click on Patient Portal and then log into your account. If you would like to receive a full copy of your medical records, please contact the [facility] Medical Records Department by calling [phone], Thursday through Thursday between 8 a.m. and 4:30 p.m. HOW TO SAFELY DISPOSE OF PRESCRIPTION MEDICATIONS Please use one of the following methods to safely dispose of your unused medications. 1.Use a drug disposal kit: the drug disposal pouch allows you to safely discard your old and unuseddrugs. Ask your nurse to give you one when you are discharged.2.Visit a local take-back location: Many local pharmacies and police departments have programs that collect old and unwanted prescriptiondrugs. Call your local pharmacy or go to http://bit.[employer]/7S4Ov5b to find one close to you.3.Make use of household items: Use cat litter or old coffee grounds to dispose medications if other options arenot available. Mix your drugs with these household products, seal them in an airtight container andthrow it into the garbage. Call [facility]: [phone] to be sure your drugs can be disposed of in this way. Some medicines may require a different approach.4.Never flush your medications down the toilet. IF YOU HAVE BEEN PRESCRIBED AN OPIOID FOR PAIN If you have been prescribed an opioid (such as hydrocodone, oxycodone or morphine), it is critical to understand the possible side effects and risks of opioid pain medications. Even when taken as directed, opioids can have several side effects including: Tolerance, meaning you might need to take more of a medication for the same pain relief. Nausea, vomiting and/or constipation. Sleepiness, dizziness, dry mouth, confusion, depression or itching. Physical dependence, meaning you have withdrawal symptoms when a medication is stopped, can develop within a few days. KNOW YOUR RESPONSIBILITIES It is important to know exactly how much and how often to take the opioid pain medications you are prescribed. Never take opioids in higher amounts or more often than prescribed. Do not combine opioids with alcohol or other drugs that cause drowsiness, such as benzodiazepines, also known as benzos, including diazepam and alprazolam, muscle relaxants or sleep aids. Never sell or share prescription opioids. This is illegal. Store opioids in a secure place and out of reach of others (including children, family, friends and visitors). The last page of this document has been signed and retained as a CHART COPY. Signatures Patient Education Materials Monitored Anesthesia Care, Care After 9 - AO Minor Esophagogastroduodenoscopy (09/23) (CUSTOM) Medication Leaflets My discharge plan and instructions have been reviewed and explained to me and I,CHRISTOPHER SILVA understand my current condition and have read and understand these discharge instructions. I have received a written copy of the plan/instructions. If I have questions, I am aware that I should contact my d hernanor. Patient/Senior Graduate Advisor Signature: Date/Time: Relationship to Patient: Witness Name/Signature: Date/Time: [facility]11-11-2024 Note Date of Service 05/23/2024 Procedure Name EGD with biopsy Consent Taken before procedure Indication Patient with chronic reflux epigastric pain Location [facility] Pre-Procedure Exam Chronic GE reflux Procedural Sedation Anesthesia provided a MAC Technique Patient was brought to the endoscopy suite and placed left shoulder down. The scope was passed direct visitation down to the esophagus the proximal esophagus was normal. Z-line was about 40 cm from the incisors no evidence of Wang's mucosa there was some small areas of erythema and exudate of the distal esophagus. LA classification B. The stomach was easily insufflated the pylorus showed some hypertrophic folds. Duodenum was unremarkable. Retroflexion performed in the stomach revealed a normal cardia and no evidence of a hiatal hernia. Biopsies were then taken of the pyloric folds for pathology. Was decompressed there was no evidence of any active peptic ulcer disease. And the endoscope was withdrawn from the esophagus the patient tolerated the procedure well. Post-Procedure Exam EGD with biopsy Findings Esophagitis gastritis Complications None apparent Assessment/Plan Orders: Lactated Ringers Infusion 1,000 mL(LR 1,000 mL), 1000 mL, Intravenous Bedrest, 05/23/24 9:40:00 EST, Strict, continuous, Constant order, Lying on side until alert or as ordered Bedrest, 05/23/24 9:40:00 EST, Strict, continuous, Constant order, Lying on side until alert or as ordered Call Parameters, 05/23/24 9:40:00 EST, Notify for vomiting, severe pain, signs of bleeding, severe abdominal pain, distention or rigidity, Constant order Communication Order (scheduled), 05/23/24 9:38:00 EST, Once, 05/23/24 9:38:00 EST, Pathology TissueRequest Communication Order (scheduled), 05/23/24 9:38:00 EST, Once, 05/23/24 9:38:00 EST, Urine Test or waiver for women of child bearing age Communication Order (scheduled), 05/23/24 9:38:00 EST, Once, 05/23/24 9:38:00 EST, Fasting Blood Sugar priot to procedure of patient is diabetic Diet Order, 05/23/24 9:40:00 EST, Start Meal: Next meal, Clear Liquid Diet, Post exam or after gag reflex returns if EGD, Constant Order, : N/A, : N/A Discharge, 05/23/24 9:38:00 EST, Discharged to: Home, when able to ambulate and after being seen byphysician Discharge Activity, NO activity restrictions, 05/23/24 9:40:00 EST Discharge Diet, Follow the post-operative/post-procedure diet instructions provided by your physician's office., 05/23/24 9:40:00 EST Discharge Wound Care, Follow the post-operative/post-procedure wound care instructions provided by your physician's office., 05/23/24 9:40:00 EST Pathology Tissue Request, 05/23/24 9:37:00 EST, Collected, Routine, Nurse Collect, AP Specimen, PYLORIC FOLDS BIOPSY, SEE CHART, UPPER ESOPHAGOGASTRODUODENOSCOPY WITH BIOPSY, GASTROESOPHAGEAL REFLUX DISEASE, GASTROESOPHAGEAL REFLUX DISEASE, Preferred Lab: [facility], [facility]... Post Procedure Assessment, 05/23/24 9:40:00 EST, Stop Date 05/23/24 9:40:00 EST, [facility] in [facility] until Tammy Score of 12 or Preprocedure Sign Consent, 05/23/24 9:38:00 EST, Once, For EGD Vital Signs, 05/23/24 9:40:00 EST, q15min, 1 hour(s), 05/23/24 10:30:00 EST Vital Signs, 05/23/24 9:40:00 EST, q30min, 1 hour(s), 05/23/24 10:30:00 EST Vital Signs PRN, 05/23/24 9:40:00 EST, PRN order Follow Up/Recommendation Follow-up the biopsy increase the patient's PPI to a twice daily for 2 weeks Digitally Signed by THOMAS IBRAHIM MD on 05/23/2024 09:45 AM Digitally Signed by AURY SCHNEIDER DO [facility]11-11-2024 Anesthesiology Consult note Patient: CHRISTOPHER SILVA Age: 68 years Sex: Male : 1955 Associated Diagnoses: None Author: CIARRA NARAYANAN Assessment Postanesthesia assessment Vitals: Vital signs from flowsheet : Vital Signs 05/23/2024 9:35 EST Heart Rate Monitored 67 bpm bpm Respiratory Rate - Anes 21 br/min br/min 05/23/2024 9:30 EST Heart Rate Monitored 58 bpm bpm Respiratory Rate - Anes 10 br/min br/min 05/23/2024 7:54 EST Temperature Temporal Artery 36.4 DegC Peripheral Pulse Rate 69 bpm Respiratory Rate 18 br/min Systolic Blood Pressure Non-Invasive 126 mmHg Diastolic Blood Pressure Non-Invasive 78 mmHg . Mental status: alert & oriented x 4. Respiratory function: lungs are clear to auscultation. Respiratory support: none. CV function: Normal rate. Cardiovascular support: none. Pain. Nausea status: see nursing documentation of medications. Postoperative hydration status: within normal limits. Digitally Signed by CIARRA NARAYANAN on 05/23/2024 09:40 AM [facility]11-11-2024 Note [place] ADMISSION HISTORY AND PHYSICIAL CHIEF COMPLAINT: HISTORY OF PRESENT ILLNESS: REVIEW OF SYSTEMS: ACTIVE PROBLEMS: (31) Abdominal pain (68855758) Aortic stenosis (713146211) Aortic valve replaced (5481871337) Atypical chest pain (381253937) Back injury (7287987351) Bradycardia (35701429) Decreased exercise tolerance (124853002) Elevated troponin (0416043213) Erectile dysfunction (2854454713) Hiatal hernia (764915246) Hyperlipidemia, mixed (979481897) Hypertension (6335009707) Hypothyroid (07931275) Influenza vaccine needed (506846539) Intertrigo (74576588) Left hip pain (72720930) Left shoulder pain (64709974) Male hypogonadism (43809751) Need for hepatitis C screening test (995070347) RADHA - Obstructive sleep apnea (3250368570) Pain of left hand (695463504371568) Pain of left shoulder joint (966163471373968) Pain of right shoulder joint (298096235046468) Peripheral neuropathy (1886356656) Prostate cancer screening (347528957) Right wrist pain (82342954) Strain of left groin (48094009) Toe osteomyelitis (6192365026) Unable to concentrate (80223736) Vitamin D deficiency (90566499) Well adult exam (720662001) MEDICATIONS: Active Inpt Meds: None Active PRN Meds: None One Time Meds: None Active IV Meds: None ALLERGIES: (1) Dilaudid FAMILY HISTORY: SOCIAL HISTORY: PHYSICAL EXAM: VITALS: KnyqwmRhuvBAIwmurDNGsL0UQN1CiymGp(kg) 05/23 07:5436.4--607096EV77/35225.5 24 Hr Tmax: 36.4 at 05/23 07:54 36 Hr Tmax: 36.4 at 05/23 07:54 Vital Signs are the last 5 in the past 48 hours. Weights display the last 5 within 7 days. Initial Wt: 05/23 142.5 kg 314 lb Current Wt: 05/23 142.5 kg 314 lb GENERAL: HEENT: CARDIOVASCULAR: RESPIRATORY: ABDOMEN: EXREMETIES: NEUROLOGICAL: PSYCHIATRIC: LABS: No 36hr Lab Data DIAGNOSTICS: IMPRESSION: PLAN: History and Physical Update I have examined the patient; reviewed the H&P and there are no changes to the H&P unless noted below. Digitally Signed by THOMAS IBRAHIM MD on 05/23/2024 09:30 AM [facility]11-11-2024 Anesthesiology Consult note Patient: CHRISTOPHER SILVA Age: 68 years Sex: Male : 1955 Associated Diagnoses: None Author: CIARRA NARAYANAN APRN-IT PROGRAMMER ANALYST Preoperative Information Time of last food or liquid consumption: 05/22/2024 23:00:00 Anesthesia history Patient's history: negative. Family's history: negative. Review of Systems Ear/Nose/Mouth/Throat: Negative except as documented in history of present illness. Respiratory: Negative except as documented in history of present illness. Cardiovascular: Negative except as documented in history of present illness. Gastrointestinal: Negative except as documented in history of present illness. Genitourinary: Negative except as documented in history of present illness. Endocrine: Negative except as documented in history of present illness. Musculoskeletal: Negative except as documented in history of present illness. Integumentary: Negative except as documented in history of present illness. Neurologic: Negative except as documented in history of present illness. Health Status Allergies: Allergic Reactions (Selected) Severe Dilaudid- Vomiting., Allergies (1) ActiveSeverityReaction DilaudidSevereVomiting Current medications: (Selected) Prescriptions Prescribed DME MISCellaneous: See Instructions, BD SYRINGE 3ML, NEEDLES 25G-1.5 INCHES. USE ONE SYRINGE Q 2WEEKS., 6 EA, 11 Refill(s) Klor-Con M20 oral tablet, extended release: 1 tab(s), Oral, qDay, 90 tab(s), 1 Refill(s) Lyrica 100 mg oral capsule: 100 mg, 1 cap(s), Oral, TID, for 30 day(s), TAKE 1 CAPSULE BY MOUTH THREE TIMES DAILY, 90 cap(s), 2 Refill(s) Testosterone Cypionate 200 mg/mL intramuscular solution: 200 mg, 1 mL, Intramuscular, q2wk, for 30 day(s), 2 mL, 2 Refill(s) Vyvanse 60 mg oral capsule: 60 mg, 1 cap(s), Oral, qAM, for 30 day(s), 30 cap(s), 0 Refill(s) benazepril 40 mg oral tablet: 1 tab(s), Oral, qDay, 90 tab(s), 1 Refill(s) ergocalciferol 50,000 intl units (1.25 mg) oral capsule: 1 cap(s), Oral, qWeek, 13 cap(s), 1 Refill(s) furosemide 40 mg oral tablet: 1 tab(s), Oral, qDay, for 90 day(s), 90 tab(s), 1 Refill(s) levothyroxine 50 mcg (0.05 mg) oral tablet: 1 tab(s), Oral, qDay, X30 DAY(S. TAKE ON AN EMPTY STOMACH, 90 tab(s), 1 Refill(s) omega-3 polyunsaturated fatty acids ethyl esters 1000 mg oral capsule: 2 cap(s), Oral, BID, 360 cap(s), 1 Refill(s) sildenafil 100 mg oral tablet: 1 tab(s), Oral, qDay, PRN: NEEDED FOR ERECTILE DYSFUNCTION, 5 tab(s), 2 Refill(s) Documented Medications Documented Adult aspirin 81 mg oral capsule: 81 mg, 1 cap(s), Oral, qDay, do not exceed 48 capsules in 24 hours, 30 cap(s), 0 Refill(s) Vitamin B Complex sublingual liquid: 1 mL, Sublingual, qDay, hold under the tongue for 30 seconds before swallowing, 59 mL, 0 Refill(s) Vitamin C 1000 mg oral tablet: 1,000 mg, 1 tab(s), Oral, qDay, 30 tab(s), 0 Refill(s) acetaminophen 500 mg oral capsule: 1,000 mg, 2 cap(s), Oral, q4h, PRN: for pain, 120 cap(s), 0 Refill(s) calcium (as carbonate) 600 mg oral tablet: 1,200 mg, 2 tab(s), Oral, qDay, 0 Refill(s) folic acid: 800 mcg, qDay, 0 Refill(s) niacin 500 mg oral capsule: 500 mg, 1 cap(s), Oral, qDay, 0 Refill(s), No qualifying data available Problem list: Medical Abdominal pain / SNOMED CT 60536067 / Confirmed Aortic stenosis / SNOMED CT 297310347 / Confirmed Atypical chest pain / SNOMED CT 686400823 / Confirmed Bradycardia / SNOMED CT 98179598 / Confirmed Erectile dysfunction / SNOMED CT 5090707532 / Confirmed Hiatal hernia / SNOMED CT 770866298 / Confirmed Left hip pain / SNOMED CT 94553167 / Confirmed Aortic valve replaced / SNOMED CT 8771420749 / Confirmed Hypertension / SNOMED CT 6687132751 / Confirmed Hypothyroid / SNOMED CT 21949152 / Confirmed Decreased exercise tolerance / SNOMED CT 424094881 / Confirmed Back injury / SNOMED CT 4960925308 / Confirmed Strain of left groin / SNOMED CT 41495629 / Confirmed Intertrigo / SNOMED CT 02203828 / Confirmed Male hypogonadism / SNOMED CT 90303168 / Confirmed Hyperlipidemia, mixed / SNOMED CT 538136256 / Confirmed Influenza vaccine needed / SNOMED CT 357324538 / Confirmed RADHA - Obstructive sleep apnea / SNOMED CT 8303042832 / Confirmed Toe osteomyelitis / SNOMED CT 2466964501 / Confirmed Right wrist pain / SNOMED CT 63107127 / Confirmed Pain of left hand / SNOMED CT 560532981204871 Pain of left shoulder joint / SNOMED CT 527912499381607 Pain of right shoulder joint / SNOMED CT 679714605046054 Prostate cancer screening / SNOMED CT 486199857 / Confirmed Well adult exam / SNOMED CT 921457500 / Confirmed Peripheral neuropathy / SNOMED CT 8207661152 / Confirmed Elevated troponin / SNOMED CT 0637261310 / Confirmed Left shoulder pain / SNOMED CT 69127074 / Confirmed Unable to concentrate / SNOMED CT 82969323 / Confirmed Need for hepatitis C screening test / SNOMED CT 553604300 / Confirmed Vitamin D deficiency / SNOMED CT 96355478 / Confirmed Canceled: Diarrhea / SNOMED CT 683537969 Canceled: Dysuria / SNOMED CT 65226686 Canceled: Finger swelling / SNOMED CT 584471200, Active Problems (31) Abdominal pain Aortic stenosis Aortic valve replaced Atypical chest pain Back injury Bradycardia Decreased exercise tolerance Elevated troponin Erectile dysfunction Hiatal hernia Hyperlipidemia, mixed Hypertension Hypothyroid Influenza vaccine needed Intertrigo Left hip pain Left shoulder pain Male hypogonadism Need for hepatitis C screening test RADHA - Obstructive sleep apnea Pain of left hand Pain of left shoulder joint Pain of right shoulder joint Peripheral neuropathy Prostate cancer screening Right wrist pain Strain of left groin Toe osteomyelitis Unable to concentrate Vitamin D deficiency Well adult exam Histories Past Medical History: No active or resolved past medical history items have been selected or recorded. Family History: Arthritis Father Paternal Grandmother Procedure history: YAG (yttrium aluminum garnet) laser vitreolysis ([id number]) on 04/05/2024 at 68 Years. Comments: 05/16/2024 9:21 Becki Ayers DIGITAL DEVELOPER Left eye YAG (yttrium aluminum garnet) laser vitreolysis ([id number]) on 03/22/2024 at 68 Years. Comments: 05/16/2024 9:20 Becki Ayers CMA Right eye Partial amputation of toe of left foot ([id number]) on 03/18/2024 at 68 Years. Comments: 05/16/2024 9:19 Becki Ayers CMA 2nd toe Shoulder replacement ([id number]) on 06/12/2022 at 66 Years. Comments: 05/16/2024 9:19 Becki Ayers CMA Left Hip replacement ([id number]) on 02/25/2022 at 66 Years. Comments: 05/16/2024 9:18 Becki Ayers CMA Left TAVR - transcatheter aortic valve replacement ([id number]) on 11/23/2020 at 65 Years. Cataract ([id number]) on 06/10/2018 at 62 Years. Comments: 05/16/2024 8:57 Becki Ayers CMA left eye Cataract ([id number]) on 05/03/2018 at 62 Years. Comments: 05/16/2024 8:57 Becki Ayers CMA right eye Colonoscopy ([id number]) on 03/09/2017 at 61 Years. Comments: 05/16/2024 8:56 Becki Ayers CMA Polyp removal, lost blood, required over night stay in hospital, polyp benign Colonoscopy ([id number]) on 12/18/2016 at 61 Years. Knee replacement planned ([id number]) on 05/23/2010 at 54 Years. Comments: 05/16/2024 8:54 Becki Ayers CMA Left knee Knee replacement ([id number]) on 04/25/2010 at 54 Years. Comments: 05/16/2024 8:53 Becki Ayers CMA Right knee. Laminectomy ([id number]). Comments: 05/16/2024 8:47 Becki Ayers CMA L3-L4, 1975 Fusion ([id number]). Comments: 05/16/2024 8:48 Becki Ayers CMA L3-L4, 1985 Radial keratotomy ([id number]). Comments: 05/16/2024 8:49 Becki Ayers CMA Bilateral eyes, 1986 Knee ([id number]). Comments: 05/16/2024 8:50 Becki Ayers CMA Left knee, bilateral meniscectomies, 2001 Appendectomy ([id number]). Comments: 05/16/2024 8:46 Becki Ayers CMA 1966 Acromioclavicular joint ([id number]). Comments: 05/16/2024 8:48 Becki Ayers CMA Right side, reconstruction, 1981 Elbow ([id number]). Comments: 05/16/2024 8:48 Becki Ayers CMA Left side, repair, 1982 Carpal tunnel release ([id number]). Comments: 05/16/2024 8:50 Becki Ayers CMA Right wrist, 1999 Knee ([id number]). Comments: 05/16/2024 8:51 Becki Ayers CMA Right knee, Bilateral meniscectomies, 2002 Radiation ([id number]). Comments: 05/16/2024 8:51 Becki Ayers CMA Treatment for prostate cancer, 2008 Microwave ([id number]). Comments: 05/16/2024 8:52 Becki Ayers CMA Treatment for prostate, 2009 Gum ([id number]). Comments: 05/16/2024 8:53 Becki Ayers CMA Surgery on upper back bilateral gum, 2010 Tooth ([id number]). Comments: 05/16/2024 8:54 Becki Ayers DIGITAL DEVELOPER Removal, 2015 Social History: Social & Psychosocial Habits Alcohol Comment: none - 07/14/2019 09:40 - Jyoti Howard LPN Tobacco 05/23/2024 Tobacco Use: Former smoker, quit more Nutrition/Health 05/23/2024 Caffeine intake amount: occasional Physical Examination Vital Signs 05/23/2024 7:54 EST Temperature Temporal Artery 36.4 DegC Peripheral Pulse Rate 69 bpm Respiratory Rate 18 br/min Systolic Blood Pressure Non-Invasive 126 mmHg Diastolic Blood Pressure Non-Invasive 78 mmHg Vital Signs (last 24 hrs) Last Charted Temp Ouxurcxo79.4 DegC (MAY 23:54) GCK364 mmHg (MAY 23:54) DBP78 mmHg (MAY 23:) Measurements from flowsheet : Measurements 05/23/2024 7:54 EST Height 175 cm Admission Weight 142.5 kg [place] Body Weight 70.46 kg Admission Body Mass Index 46.53 m2 05/23/2024 7:45 EST Height 175 cm [place] Body Weight 70.46 kg Pain assessment: Pain Assessment 05/23/2024 7:54 EST Primary Pain Intensity 0 Pain Scale Type 0-10 Pain scale . General: Alert and oriented. Airway: Normal neck range of motion. Mallampati classification: II (soft palate, fauces, uvula visible). Head: Normocephalic. Dentition Evaluation: Intact, Own teeth. Neck: Full range of motion. Respiratory: Lungs are clear to auscultation. Cardiovascular: Normal rate. Heart Sounds: Normal. Gastrointestinal: Soft. Musculoskeletal Normal range of motion. Integumentary: Intact, Warm, Dry. Neurologic: Alert, Oriented. Review / Management Results review: No qualifying data available , Lab results 05/23/2024 7:54 EST Height 175 cm Admission Weight 142.5 kg [place] Body Weight 70.46 kg Admission Body Mass Index 46.53 m2 Temperature Temporal Artery 36.4 DegC Peripheral Pulse Rate 69 bpm Respiratory Rate 18 br/min Systolic Blood Pressure Non-Invasive 126 mmHg Diastolic Blood Pressure Non-Invasive 78 mmHg Primary Pain Intensity 0 Pain Scale Type 0-10 Pain scale Heart Rhythm Regular Respirations Unlabored Respiratory Pattern Regular Breath Sounds Auscultated Anterior and posterior All Lobes Breath Sounds Diminished, Equal Oxygen Therapy Room air Oxygen Saturation 98 % Abdomen Description Rounded Abdomen Palpation Non-Tender Skin Temperature Warm Skin Description [place], Normal for ethnicity Skin Integrity Intact Skin Moisture General Dry Neurological Symptoms Patient denies Extremity Movement Equal Characteristics of Speech Clear Level of Consciousness Alert Strength All Extremities Strong Tone All Extremities Normal Sensation All Extremities Intact Affect/Behavior Appropriate, Calm, Cooperative Orientation Oriented x 4 Assistive Device Cane Activity Status ADL Awake Standard Safety ID band on, Allergy Band on, Call device within reach, Bed in low position, Safety level maintained 05/23/2024 7:48 EST Allergies Yes Hospital Fellow On Yes Consent Form Signed Yes Patient Dressed In Hospital gown History & Physical On Chart Yes Belongings At Bedside Pants, Shirt, Shoes, Socks NPO Status Maintained Allergy Band on and Verified Yes Patient ID Band on and Verified Yes Implants Verified Yes Pacemaker/AICD Verified Yes Site Verified by Patient/Family Yes Last Fluid Intake 05/22/2024 20:00 Last Food Intake 05/22/2024 20:00 05/23/2024 7:45 EST Designated Person #1 We May Share PHI FRANCY SILVA Designated Person #1 Relationship Spouse Height 175 cm [place] Body Weight 70.46 kg Status N/A Sensory Deficits None Infectious Disease Symptoms Patient states no symptoms Infectious Disease Recent Exposure No Alcohol and Drug Use No Employee of Institutional Living No Health Care Employee No History of Exposure to TB No History of Positive Chest X-Ray for TB No History of Positive TB Skin Test No Homeless No Known Immunosuppression No Recent Immigrant No Resident of Institutional Living No Bloody Sputum No Fatigue No Fever No Loss of Appetite No Night Sweats No Persistent Cough > 3 Weeks No Weight Loss No Barriers to Learning None evident Teaching Method Explanation Preferred Spoken Language Czech Preferred Written Language Czech Patient's 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 Assessment and Plan [place] [employer]esthesi[employer] (ASA) physical status classification: Class III. Anesthetic Preoperative Plan Premedication: intravenous. Anesthetic technique: MAC. Induction: intravenously. Maintenance airway: Mask. Risks discussed: nausea, vomiting, headache, sore throat, dental injury, hypotension, allergic reaction, serious complications. Informed consent: signed by patient. Digitally Signed by CIARRA NARAYANAN on 05/23/2024 08:07 AM [facility]09-27-2024 History of Present illness Narrative * Neftaly Garcia RT(R) - 04/08/2024 11:50 AM EDT RADIOLOGY SERVICE PROGRESS NOTE DATE OF SERVICE: April 08, 2024 TIME OF SERVICE: 15:46 EVENT: EXAM/PROCEDURE NOT COMPLETED - Exam rescheduled for order was placed by a RN and not Cosigned by the physician and patient left. Epic message was sent to both RN and MD to have the order signed. ADDITIONAL EVENT DETAILS: N/A SIGNATURE: RT Deric(Wily) PATIENT NAME: Christopher Silva DATE: April 08, 2024 TIME: 3:46 PM PAGER/CONTACT #: [facility] NoteHNO ID: [id number] Author: NEFTALY GARCIA RT (R) Service: Radiology Author Type: Technologist Type: Progress Notes Filed: 04/08/2024 15:47 Note Text: RADIOLOGY SERVICE PROGRESS NOTE DATE OF SERVICE: April 08, 2024 TIME OF SERVICE: 15:46 EVENT: EXAM/PROCEDURE NOT COMPLETED - Exam rescheduled for order was placed by a RN and not Cosigned by the physician and patient left. Epic message was sent to both RN and MD to have the order signed. ADDITIONAL EVENT DETAILS: N/A SIGNATURE: RT Deric(Wily) PATIENT NAME: Christopher Silva DATE: April 08, 2024 TIME: 3:46 PM PAGER/CONTACT #:[facility]09-27-2024 Telephone encounter Note* Telephone Encounter - Donovan Wray RN - 04/08/2024 11:08 AM EDT I contacted the patient and reminded him to bring disc with MRI to visit on Thursday with Dr. Go. Also requested that he went to [facility] facility to obtain lumbar x-rays prior to visit. He agreed to go to [facility] close by to his house. He was appreciative of the call. Donovan Wray RN [facility]09-27-2024 Miscellaneous Notes* Telephone Encounter - Donovan Wray RN - 04/08/2024 11:08 AM EDT I contacted the patient and reminded him to bring disc with MRI to visit on Thursday with Dr. Go. Also requested that he went to [facility] facility to obtain lumbar x-rays prior to visit. He agreed to go to [facility] close by to his house. He was appreciative of the call. Donovan Wray RN documented in [facility]-2024 Telephone encounter Note * Telephone Encounter - Shraddha Donaldson - 03/30/2024 10:44 AM EDT Referral from [facility] for Neurosurgery, for lumbosacral stenosis , lumbar spondylosis and radiculopathy, no recent images in [facility]. LVM for patient to call office to be scheduled. [facility]09-18-2024 Miscellaneous Notes* Telephone Encounter - Shraddha Donaldson - 03/30/2024 10:44 AM EDT Referral from [facility] for Neurosurgery, for lumbosacral stenosis , lumbar spondylosis and radiculopathy, no recent images in Epic. LVM for patient to call office to be scheduled. documented in this encounterOhio[facility]03-01-2024 Discharge summary Author Jose Trinh [facility] September 11, 2023 2:31am Note Date/Time September 10, 2023 11:34pm [facility] Medical Records Department [address] [place] [address] Emergency Department Summary 09/10/23 MR#: [id number] Acct: [id number] Name: CHRISTOPHER SILVA Rep #:[id number] : 1955 67 From: Jose Trinh DO PCP: Dr. Aury Schneider DO Status:REG ER Location: ED HPI History of Present Illness Chief Complaint: Chest Pain Informant: patient Narrative Narrative: Patient is a 67-year-old male with past medical history of hypertension hyperlipidemia and valve replacement. He states he was at work this evening when he noticed that he would have bouts of chest pressure that extended into his upper abdomen that would last about 5 to 6 minutes and then resolved. He states that during this time he felt like he could not take a deep breath. However there was no nausea vomiting or diaphoresis. He states that he had 3-4 episodes over the course of 1 to 2 hours and with concern this could be caused by a cardiac event presents for evaluation [facility] Medical History Arthritis Back pain Blepharitis of left lower eyelid Bradycardia with 41-50 beats per minute Cancer Cardiology follow-up encounter Chalazion left lower eyelid Colonic polyp Coronary artery disease COVID-19 virus detected (08/03/21) CPAP (continuous positive airway pressure) dependence Disc degeneration, lumbar Dyslipidemia Elevated troponin Elevated troponin Essential (primary) hypertension Fatigue Former smoker Gastric reflux Hay fever Hiatal hernia Hiatal hernia High cholesterol History of echocardiogram History of hepatitis C History of hiatal hernia History of stress test History of transesophageal echocardiography (CHIKA) Hypertension Hypogonadism in male Hypoxemia Knee pain Left shoulder pain Leg cramps Lower GI bleed Morbid obesity with BMI of 45.0-49.9, adult Myasthenia gravis Nonobstructive atherosclerosis of coronary artery Nonrheumatic aortic (valve) stenosis Obstructive sleep apnea Osteoarthritis of left hip Prostate cancer Rheumatoid arthritis Shoulder pain Sleep apnea Wears glasses Home Medications furosemide 40 mg tablet 40 mg PO DAILY diuretic/water pill 02/14/15 [History Last Taken 06/11/22] niacin 500 mg tablet 500 mg PO QHS supplement 02/14/15 [History Last Taken 06/11/22] omega-3 acid ethyl esters 1 gram capsule 2 gm PO DAILY supplement 02/14/15 [History Last Taken 12/02/22] potassium chloride 20 mEq tablet,extended release(part/cryst) 20 meq PO DAILY supplement 02/14/15 [History Last Taken 06/11/22] testosterone cypionate 100 mg/mL intramuscular oil 1 ml IM Q14D hormone 02/14/15[History Last Taken 06/11/22] folic acid 800 mcg tablet 0.8 mg PO DAILY supplement 03/09/17 [History Last Taken 06/11/22] lisdexamfetamine 50 mg capsule 60 mg PO DAILY ADHD 03/09/17 [History Last Taken 06/11/22] benazepril 40 mg tablet 40 mg PO DAILY blood pressure 07/12/19 [History Last Taken 06/12/22 04:45] ergocalciferol (vitamin D2) 1,250 mcg (50,000 unit) capsule 50,000 unit PO Q7D supplement 08/19/20 [History Last Taken 06/11/22] pregabalin 100 mg capsule 100 mg PO TID pain 01/25/21 [History Last Taken 06/11/22] sildenafil 100 mg tablet 100 mg PO DAILY PRN Erectile Dysfunction 11/04/21 [History Last Taken 06/11/22] calcium 600 mg capsule 1,200 mg PO DAILY supplement 06/26/22 [History Last Taken Unknown] aspirin 81 mg tablet,delayed release 81 mg PO DAILY 12/03/22 [History Last Taken 12/02/22] vitamin Y25-wtidfpg B1 5.5 mg-12.5 mcg/5 mL oral liquid 1 ml PO BID 12/03/22 [History Last Taken Unknown] acetaminophen 500 mg tablet 1,000 mg PO Q8 PRN pain 12/04/22 [History Last Taken Unknown] ascorbic acid (vitamin C) 1,000 mg capsule 1 g PO DAILY 05/12/23 [History Last Taken Unknown] levothyroxine 50 mcg tablet 50 mcg PO DAILY 05/12/23 [History Last Taken Unknown] Allergy/AdvReac Type Severity Reaction Status Date / Time hydromorphone HCl Allergy nausea, Verified 09/10/23 22:53 [From Dilaudid] confusion Family History Mother Skin cancer Surgical History H/O laminectomy H/O total knee replacement History of appendectomy History of back surgery History of cardiac catheterization History of carpal tunnel release History of cataract surgery History of colonoscopy History of elbow surgery History of hip replacement (~2021) History of knee surgery History of left heart catheterization (08/20/20) History of lumbar surgery History of shoulder surgery History of transcatheter aortic valve replacement (TAVR) (11/26/20) Social History household members: spouse current occupational status: employed Smoking Status: Former smoker alcohol intake: never ROS ROS ED Constitutional Constitutional ED: Denies chills or fever(s) ENT ENT ED: Denies sore throat Cardiovascular Cardiovascular: Reports chest pain; Denies palpitations or racing heartbeat Respiratory/Chest Respiratory/Chest: Denies cough or dyspnea Gastrointestinal Gastrointestinal: Reports abdominal pain; Denies diarrhea, nausea or vomiting Genitourinary Genitourinary ED: Denies dysuria Musculoskeletal Musculoskeletal: Denies myalgias Integumentary Denies rash Neurologic Neurologic: Denies headache(s) Hematologic/Lymphatic Hematologic/Lymphatic: Denies easy bleeding or easy bruising EXAM Physical Exam Const Vital Signs: 09/10/23 22:51 09/10/23 22:51 Temperature 98.3 F Temperature Source Temporal Pulse Rate 77 Respiratory Rate 20 H Respiratory Effort Normal Non-Labored Blood Pressure 163/83 H Blood Pressure Mean 109 Pulse Ox 95 Oxygen Delivery Method Room Air Positive well nourished and well developed General Appearance ED: well developed HEENT HEENT Narrative: Normocephalic atraumatic Eyes PERRL and EOMs intact bilaterally General Eye ED: Negative for scleral icterus Neck supple Chest Wall palpation of chest normal Chest Narrative: No bony deformity or crepitance noted Resp normal respiratory effort and clear to auscultation bilaterally Cardio regular rate and regular rhythm Rate: other Other Details: Heart is regular rate and rhythm with grade 3 out of 6 holosystolic murmur Radial and carotid pulses are equal and symmetric GI non-distended GI Narrative: Patient has mild pain on palpation in the midepigastric region without voluntaryguarding or rigidity No pulsatile mass or fluid wave No obvious hernia palpated Auscultation: normoactive bowel sounds Palpation: soft Extremity normal to inspection Extremity Narrative: No asymmetric edema no pitting edema negative Homans' sign bilaterally Neuro oriented x3, CN's II-XII intact bilaterally and no sensory deficits noted Sensorium / Orientation: alert Motor Exam: strength 5/5 throughout Psych mental status grossly normal Skin no rashes or lesions noted General Skin Exam: Negative for jaundice MDM MDM MDM Narrative Medical decision making narrative: Patient arrived to the ER mildly hypertensive otherwise with stable vitals. He also reported he was spontaneously having improvement of his symptoms. He has ahistory of CAD as well as hypertension and hyperlipidemia along with his age this is concerning for acute coronary syndrome but there is also possibility that this could be related to biliary colic versus acute cholecystitis versus pancreatitis versus gastritis or esophageal spasm. Secondary to this basic blood work was obtained. Also as patient is on testosterone there is concern this could be due to a DVT/PE so D-dimer was added. Patient's D-dimer was mildly elevated at 0.85 so CTA was obtained which revealed no PE or dissection. The patient's initial troponin was elevated at 175 and the 2- hour delta remainedrelatively flat with only an increase of 5 points to a value of 180. The patient was pain-free shortly after arrival and remained that way for the entireER stay. As his history risk factors and exam do indicate this is most likely secondary to acute coronary syndrome or vessel spasm I discussed the case with cardiology on-call Dr. Steele. He reviewed the patient's case and at this time the patient is pain-free and in 2021 his troponin was also elevated at approximately 100 and at that time his stress test was negative. As his values today are remaining flat and are only slightly elevated compared to roughly a year and a half ago he feels that the patient is safe for discharge and should talk to his ticket counter on an outpatient basis to receive a potential repeat stress test or further cardiac workup. This plan of care was discussed with thepatient and family and as he is pain- free and his troponins are remaining stablehe is comfortable with this plan of action and will follow-up with his ticket counter as directed. History & Record Review Discussion w/independent historian: Patient Lab Data Attestation: I reviewed the patient's lab results. Labs: Laboratory Results - last 24 hr 09/10/23 09/11/23 23:08 01:25 WBC 8.4 RBC 5.61 Hgb 17.0 H Hct 51.8 MCV 92.3 MCH 30.3 MCHC 32.8 RDW Std Deviation 46.1 H RDW Coeff of Shahzad 13.5 Plt Count 276 MPV 10.5 Immature Gran % (Auto) 0.500 Neut % (Auto) 65.3 Lymph % (Auto) 23.6 Bremer % (Auto) 6.2 Eos % (Auto) 2.8 Baso % (Auto) 1.6 H Absolute Neuts (auto) 5.5 Absolute Lymphs (auto) 1.97 Nucleated RBC % 0 PT 13.9 INR 1.1 APTT 40.7 H D-Dimer Quant (PE/DVT) 0.85 H* Sodium 141 Potassium 4.2 Chloride 106 Carbon Dioxide 31.0 Anion Gap 4 L BUN 30 H Creatinine 1.18 Estim Creat Clear Calc 81.17 Est GFR (MDRD) Af Amer 79 Est GFR (MDRD) Non-Af 65 BUN/Creatinine Ratio 25.4 H Glucose 85 Calcium 9.3 Total Bilirubin 0.70 Direct Bilirubin 0.15 AST 33 ALT 29 Alkaline Phosphatase 87 Troponin I High Sens 175 H* 180 H* Total Protein 7.7 Albumin 3.8 Globulin 3.9 Lipase 23 Radiography Diagnostic Testing: Clinical Impression(s) from Imaging Studies Chest X-Ray 09/10/23 23:21 IMPRESSION: No acute findings in the chest. Electronically Signed: Nadeem Middleton MD at 23:59 EST Reading Location ID and State: [facility] / [place] Tel , Service support , Chest CTA 09/11/23 23:50 IMPRESSION: No pulmonary embolism or other acute abnormality identified in the chest. Electronically Signed: Nadeem Middleton MD at 0:38 EST , Chest x-ray as interpreted by the emergency medicine physician reveals no acute infiltrate pneumothorax or pleural effusion Management Discussion w/another healthcare provider: Elementary T[employer] Discharge Plan Triage Chief Complaint: Chest Pain ED Provider: Jose Trinh Dx/Rx/DC Orders Clinical Impression: Chest pain due to coronary artery disease, Essential (primary) hypertension, Dyslipidemia Instructions: ED Chest Pain, Uncertain Cause, ED Heart Disease Risk Factors Prescriptions: No Action pregabalin 100 mg capsule 100 mg PO TID Patient Comments: TAKE 1 CAPSULE BY MOUTH 3 TIMES A DAY sildenafil 100 mg tablet 100 mg PO DAILY PRN (Reason: Erectile Dysfunction) levothyroxine 50 mcg tablet 50 mcg PO DAILY ascorbic acid (vitamin C) 1,000 mg capsule 1 g PO DAILY furosemide 40 MG tablet 40 mg PO DAILY testosterone cypionate 100 MG/ML oil 1 ml IM Q14D potassium chloride 20 MEQ tablet 20 meq PO DAILY omega-3 acid ethyl esters 1 GM capsule 2 gm PO DAILY niacin 500 MG tablet 500 mg PO QHS folic acid 0.8 MG tablet 0.8 mg PO DAILY lisdexamfetamine 50 MG capsule 60 mg PO DAILY Patient Comments: TAKE ONE CAPSULE BY MOUTH EVERY DAY benazepril 40 MG tablet 40 mg PO DAILY ergocalciferol (vitamin D2) 50,000 UNIT capsule 50,000 unit PO Q7D Rx Instructions: on sundays calcium 600 mg Capsule 1,200 mg PO DAILY acetaminophen 500 mg tablet 1,000 mg PO Q8 PRN (Reason: pain) aspirin 81 mg tablet,delayed release (DR/EC) 81 mg PO DAILY vitamin S80-wbfgcos B1 5.5-12.5 mg-mcg/5 mL Liquid 1 ml PO BID Primary Care Provider: Aury Schneider Referrals: Fred Bond MD [Med Staff - Active Staff] - Aury Schneider DO [Primary Care Provider] - Activity Restrictions/Additional Instructions: Please contact your ticket counter office later today to inform them of the symptoms was brought to the ER and discuss having a outpatient stress test performed. Continue all of your medications as directed by your doctor and return to the ER should you have any further concerns or worsening of symptoms Disposition Disposition: Home, Self Care What to do if you have Problems For any increased pain, shortness of breath, bleeding, nausea or vomiting, chestpain, or any unexpected problems, contact your Primary Care Provider. Call [facility] ([phone]) or report to the closest Emergency Room. Call 911 if necessary. 09/11/23 0231 <Electronically signed by Jose Trinh DO> Cosigner Signature (if applicable): CC: Dr. Aury Schneider DO ~ Signed [facility] Work Phone: [phone]) 203-888202-29-2024 Chief complaint+Reason for visit Narrative * Chief Complaint COVID EXPOSURE CHEST PAIN S/P [facility] CP fsll Reason for Visit COVID-19 virus detec justin Obesity Dyslipidemia Essential (primary) hypertension Nonobstructive atherosclerosis of coronary artery [facility] Work Phone: [phone] 174-181412-04-2023 Discharge summary Author Shana Quintana [facility] June 15, 2023 9:59am Note Date/Time June 15, 2023 9 :59am [facility] Occupational Therapy [facility] [address] [place] [address] / REHABILITATION SERVICES DISCHARGE SUMMARY MR#: [id number] Acct: [id number] Name: CHRISTOPHER SILVA Rep #: [id number] : 1955 67 From: Shana Quintana OTR/Bandar, CHT Referring Dr.: HELEN Willingham Status: REG RCR Eval Date: Discharge Date: Discharge Summary D/C Summary: It has been my pleasure to treat CHRISTOPHER SILVA under orders from HELEN Willingham, for the diagnosis of right hand strain for a total of 11 visit(s). Please see the following information for a summary of their discharge status. 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 Goals Patient Goals: Decrease Pain, Return to Work, Decrease Swelling/Stiffness, Improve Fine Motor Skills, Use Hand/Wrist/Arm Normally Again, Increase ROM, Be More Independent in ADLS, Resume Former Household Responsibilities (Cooking,Cleaning,Yard, etc.) and Resume Hobbies Goal:ROM equal to unaffected hand: Yes Goal:Patient Ombudsperson/Pinch strength at least 75% of unaffected hand: Yes Goal:No pain with affected hand use: Yes Goal:Full use of affected hand in daily activities including work: Yes Other Goal: Pt to demo overall increased indep in ADL/IADL tasks by decreased total DASH score by 20 points by discharge. Pt will demonstrate understanding of at least 3 joint protection to decrease joint stress while performing ADL tasks by d/c. Plan Plan: pt to return to for possible release to full duty D/C Information d/c sentence: If there are questions or concerns regarding this patient's occupational therapy, please fell free to call me at [phone]. Thank you for the referral of this patient. Sincerely, Shana Quintana, OTR/L, CHT <Electronically signed by Shana Quintana OTR/Bandar, CHT> 06/15/23 0959 CC: HELEN Willingham; Dr. Aury Schneider, DO ~ MK Signed [facility] Work Phone: [phone]) 643-862806-30-2023 Discharge summary Author Josue Jamison [facility] January 09, 2023 1:40am Note Date/Time January 08, 2023 11:1 4pm [facility] Medical Records Department [address] [place] [address] Emergency Department Summary 01/08/23 MR#: [id number] Acct: [id number] Name: CHRISTOPHER SILVA Rep #:[id number] : 1955 67 From: Josue Jamison MD PCP: Dr. Aury Schneider, Status:REG ER Location: ED HPI History of Present Illness Chief Complaint: Mental Status Change Informant: patient Narrative Narrative: 67-year-old male for the past couple hours has been gradually getting more and more weak. 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 Has been drinking water but he states he has not urinated in about 12 hours. States he does not have the need to. He denies anyother acute symptoms except for a rash has been there for the past several days,chest, shoulders, down toward his abdomen and his arms, similar to when he had afungal rash in the past due to lack of ventilation and excessive heat. States he wiped some white stuff off and one of his intertriginous areas between his chest and his abdomen lately that look like fungal. He states is very itchy no pain. No new medications lately except for maybe his thyroid medication severalweeks ago. [facility] Medical History Arthritis Back pain Blepharitis of left lower eyelid Bradycardia with 41-50 beats per minute Cancer Cardiology follow-up encounter Chalazion left lower eyelid Colonic polyp Coronary artery disease COVID-19 virus detected (08/03/21) CPAP (continuous positive airway pressure) dependence Disc degeneration, lumbar Dyslipidemia Elevated troponin Elevated troponin Essential (primary) hypertension Fatigue Former smoker Gastric reflux Hay fever Hiatal hernia Hiatal hernia High cholesterol History of echocardiogram History of hepatitis C History of hiatal hernia History of stress test History of transesophageal echocardiography (CHIKA) Hypertension Hypogonadism in male Hypoxemia Knee pain Left shoulder pain Leg cramps Lower GI bleed Morbid obesity with BMI of 45.0-49.9, adult Myasthenia gravis Nonobstructive atherosclerosis of coronary artery Nonrheumatic aortic (valve) stenosis Obstructive sleep apnea Osteoarthritis of left hip Prostate cancer Rheumatoid arthritis Shoulder pain Sleep apnea Wears glasses Home Medications furosemide 40 mg tablet 40 mg PO DAILY diuretic/water pill 02/14/15 [History Last Taken 06/11/22] niacin 500 mg tablet 500 mg PO QHS supplement 02/14/15 [History Last Taken 06/11/22] omega-3 acid ethyl esters 1 gram capsule 2 gm PO DAILY supplement 02/14/15 [History Last Taken 12/02/22] potassium chloride 20 mEq tablet,extended release(part/cryst) 20 meq PO DAILY supplement 02/14/15 [History Last Taken 06/11/22] testosterone cypionate 100 mg/mL intramuscular oil 1 ml IM Q14D hormone 02/14/15[History Last Taken 06/11/22] folic acid 800 mcg tablet 0.8 mg PO DAILY supplement 03/09/17 [History Last Taken 06/11/22] lisdexamfetamine 50 mg capsule 60 mg PO DAILY ADHD 03/09/17 [History Last Taken 06/11/22] benazepril 40 mg tablet 40 mg PO DAILY blood pressure 07/12/19 [History Last Taken 06/12/22 04:45] ergocalciferol (vitamin D2) 1,250 mcg (50,000 unit) capsule 50,000 unit PO Q7D supplement 08/19/20 [History Last Taken 06/11/22] pregabalin 100 mg capsule 100 mg PO TID pain 01/25/21 [History Last Taken 06/11/22] sildenafil 100 mg tablet 100 mg PO DAILY PRN Erectile Dysfunction 11/04/21 [History Last Taken 06/11/22] 5-HTP 18.8 mg-tyrosine 187.5 fh-lfyftayth-ddyvgrfa-B6-C-chrom capsule 1 cap PO QHS supplement 06/26/22 [History Last Taken Unknown] calcium 600 mg capsule 1,200 mg PO DAILY supplement 06/26/22 [History Last Taken Unknown] aspirin 81 mg tablet,delayed release 81 mg PO DAILY 12/03/22 [History Last Taken 12/02/22] vitamin W25-jyeewce B1 5.5 mg-12.5 mcg/5 mL oral liquid 1 ml PO TID 12/03/22 [History Last Taken Unknown] acetaminophen 500 mg tablet 1,000 mg PO Q8 PRN pain 12/04/22 [History Last Taken Unknown] fluconazole 150 mg tablet 150 mg PO DAILY #1 TAB 01/09/23 [Rx Last Taken Unknown] Allergy/AdvReac Type Severity Reaction Status Date / Time hydromorphone HCl Allergy nausea, Verified 01/08/23 22:40 [From Dilaudid] confusion Family History Mother Skin cancer Surgical History (Updated 12/04/22 @ 08:17 by Karen Young) H/O laminectomy H/O total knee replacement History of appendectomy History of back surgery History of cardiac catheterization History of carpal tunnel release History of cataract surgery History of colonoscopy History of elbow surgery History of hip replacement (~2021) History of knee surgery History of left heart catheterization (08/20/20) History of lumbar surgery History of shoulder surgery History of transcatheter aortic valve replacement (TAVR) (11/26/20) Social History household members: spouse current occupational status: employed Smoking Status: Former smoker alcohol intake: never ROS ROS ED Constitutional Constitutional ED: Reports fatigue, weakness and other Details: Sweating all daydue to heat/factory/ambient environment ; Denies chills or fever(s) Eyes Eyes: Denies change in vision or diplopia ENT ENT ED: Denies rhinorrhea or sore throat Cardiovascular Cardiovascular: Denies chest pain or palpitations Respiratory/Chest Respiratory/Chest: Denies cough or dyspnea Gastrointestinal Gastrointestinal: Denies abdominal pain, diarrhea, nausea or vomiting Genitourinary Genitourinary ED: Denies dysuria or hematuria Musculoskeletal Musculoskeletal: Denies back pain or neck pain Integumentary Reports pruritus and rash; Denies abscess Neurologic Neurologic: Denies headache(s), paresthesias or weakness Psychiatric Psychiatric: Denies anxiety or suicidal thoughts EXAM Physical Exam Const Vital Signs: 01/08/23 22:37 Temperature 97.6 F L Temperature Source Temporal Pulse Rate 99 Respiratory Rate 16 Blood Pressure 127/84 H Blood Pressure Mean 98 Pulse Ox 95 Oxygen Delivery Method Room Air Positive well nourished, well developed and obese General Appearance ED: well developed and NAD Nutritional Appearance: obese HEENT Reports dry mucous membranes normocephalic and atraumatic Mouth ED: Yes dry mucous membranes Mouth: dry mucous membranes Eyes PERRL and EOMs intact bilaterally Neck full ROM, no lymphadenopathy and supple Chest Wall palpation of chest normal Resp normal respiratory effort and clear to auscultation bilaterally Cardio regular rate, regular rhythm and no murmurs Rate: tachycardic GI non-tender and non-distended Auscultation: normoactive bowel sounds Palpation: soft Back/Spine no CVA tenderness General Back: other FROM Extremity normal to inspection General Extremety ED: Yes edema; Negative for pulses abnormal or tenderness General Extremity: edema bilateral lower extremity Details: moderate; Negative for pulses abnormal Neuro oriented x3, CN's II-XII intact bilaterally and no sensory deficits noted Neuro Narrative: Normal speech Sensorium / Orientation: awake and alert Motor Exam: strength 5/5 throughout Psych mental status grossly normal Skin no wounds Skin Narrative: Erythematous rash throughout chest, lessens as a goes into the abdomen, also on top of the shoulders and upper arms, it is more prominent in intertriginous areas. No tenderness. More macular and patchy, no raised lesions or bullae or petechia/purpura. MDM MDM MDM Narrative Medical decision making narrative: Patient was given IV fluids since he looked and sounded dehydrated while we obtained labs. The labs confirm this, showing a BUN of 34 and creatinine 1.9, Icompared this to old labs, usually has a creatinine under 1. He is feeling muchbetter with IV fluids and he has not finished the whole liter yet. He was drinking some fluids as well. He looks better. Concerned about his rash, I agree it is probably a fungal infection given its appearance, I am going to prescribe him a Diflucan it does not seem to interact dangerously with any medications he is on right now, advised to follow-up with his doctor regarding this as well as his acute renal insufficiency. History & Record Review Additional record(s) reviewed:: Prior labs Lab Data Attestation: I reviewed the patient's lab results. Labs: Laboratory Results - last 24 hr 01/08/23 23:30 WBC 9.4 RBC 5.59 Hgb 17.2 H Hct 51.0 MCV 91.2 MCH 30.8 MCHC 33.7 RDW Std Deviation 44.7 H RDW Coeff of Shahzad 13.2 Plt Count 294 MPV 9.9 Immature Gran % (Auto) 0.400 Neut % (Auto) 75.2 H Lymph % (Auto) 14.4 L Bremer % (Auto) 6.6 Eos % (Auto) 2.4 Baso % (Auto) 1.0 Absolute Neuts (auto) 7.1 Absolute Lymphs (auto) 1.35 Nucleated RBC % 0 Sodium 140 Potassium 4.7 Chloride 104 Carbon Dioxide 26.0 Anion Gap 10 BUN 34 H Creatinine 1.90 H Estim Creat Clear Calc 35.50 Est GFR (MDRD) Af Amer 45 L Est GFR (MDRD) Non-Af 38 L BUN/Creatinine Ratio 17.9 Glucose 99 Calcium 9.8 Rhythm Strip Rhythm Strip: Sinus Tach Rate: 102 Ectopy: None EKG Initial EKG: Attestation: I personally reviewed and interpreted this EKG as follows: Interpretation: Sinus Rhythm and No Acute Injury Pattern Comments: Inferior Q waves Prior EKG tracings: available for review (06/27/2022) Prior: Unchanged Discharge Plan Triage Chief Complaint: Mental Status Change ED Provider: Josue Jamison Dx/Rx/DC Orders Clinical Impression: JASON (acute kidney injury), Acute dehydration, Tinea corporis Instructions: Dehydration, ED Fungal Skin Infection (Tinea) Prescriptions: New fluconazole 150 mg tablet 150 mg PO DAILY Qty: 1 0RF No Action pregabalin 100 mg capsule 100 mg PO TID Patient Comments: TAKE 1 CAPSULE BY MOUTH 3 TIMES A DAY sildenafil 100 mg tablet 100 mg PO DAILY PRN (Reason: Erectile Dysfunction) furosemide 40 MG tablet 40 mg PO DAILY testosterone cypionate 100 MG/ML oil 1 ml IM Q14D potassium chloride 20 MEQ tablet 20 meq PO DAILY omega-3 acid ethyl esters 1 GM capsule 2 gm PO DAILY niacin 500 MG tablet 500 mg PO QHS folic acid 0.8 MG tablet 0.8 mg PO DAILY lisdexamfetamine 50 MG capsule 60 mg PO DAILY Patient Comments: TAKE ONE CAPSULE BY MOUTH EVERY DAY benazepril 40 MG tablet 40 mg PO DAILY ergocalciferol (vitamin D2) 50,000 UNIT capsule 50,000 unit PO Q7D Rx Instructions: on sundays calcium 600 mg Capsule 1,200 mg PO DAILY 6OKD-lblhs-nmzt-ebatq-R5-K-chr 18.8-187.5-93.8 mg Capsule 1 cap PO QHS acetaminophen 500 mg tablet 1,000 mg PO Q8 PRN (Reason: pain) aspirin 81 mg tablet,delayed release (DR/EC) 81 mg PO DAILY vitamin G78-jtnribg B1 5.5-12.5 mg-mcg/5 mL Liquid 1 ml PO TID Primary Care Provider: Aury Schneider Referrals: Aury Schneider DO [Primary Care Provider] - (Next week, call for appointment) Disposition Disposition: Home, Self Care What to do if you have Problems For any increased pain, shortness of breath, bleeding, nausea or vomiting, chestpain, or any unexpected problems, contact your Primary Care Provider. Call [facility] ([phone]) or report to the closest Emergency Room. Call 911 if necessary. 01/09/23 0140 <Electronically signed by Josue Jamison MD> Cosigner Signature (if applicable): CC: Dr. Aury Schneider DO ~ Signed [facility] Work Phone: [phone]) 902-674005-30-2023 Procedure [facility] 12-09-2022 Procedure [facility]01-22-2022 Evaluation note* Diagnosis Onset Date Resolution Status COVID-19 virus detected August 03, 2021 acute [facility] Work Phone: [phone]) 645-965401-22-2022 Evaluation note* Diagnosis Onset Date Resolution Status COVID-19 virus detected August 03, 2021 acute Obesity acute Dyslipidemia chronic Essential (primary) hypertension chronic 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 [facility] Work Phone: 1([phone]) 386-586305-17-2021 Evaluation note* Diagnosis Onset Date Resolution Status Essential (primary) hypertension chronic History of transcatheter aor tic valve replacement (TAVR) November 26, 2020 chronic Nonobstructive atherosclerosis of coronary artery chronic Osteoarthritis, shoulder acu te [facility] Work Phone: [phone]) 703-925705-17-2021 Evaluation note* Diagnosis Onset Date Resolution Status Essential (primary) hypertension chronic History of transcatheter aor tic valve replacement (TAVR) November 26, 2020 chronic Nonobstructive atherosclerosis of coronary artery chronic Osteoarthritis, shoulder res olved Left shoulder pain acute [facility] Work Phone: 1(139) 595-885605-17-2021 Evaluation note* Diagnosis Onset Date Resolution Status Essential (primary) hypertension chronic History of transcatheter aor tic valve replacement (TAVR) November 26, 2020 chronic Nonobstructive atherosclerosis of coronary artery chronic Osteoarthritis, shoulder res olved Chest pain acute Elevated troponin acute Left shoulder pain acute Essential (primary) hypertension chronic History of transcatheter aor tic valve replacement (TAVR) November 26, 2020 chronic Nonobstructive atherosclerosis of coronary artery chronic [facility] Work Phone: 1(491) 865-914405-17-2021 Hospital Discharge instructions* Instructions* Shana Huerta, 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 -Eating well is [...] aspirin will be indefinite. [facility]: Chief complaint+Reason for visit Narrative* Chief Complaint EXPOSED /COVID TEST L HIP PAIN Reason for Visit COVID-19 virus [facility] Work Phone: Chief complaint+Reason for visit Narrative* Chief Complaint COVID EXPOSURE CHEST PAIN Reason for Visit COVID-19 [facility] Work Phone: Evaluation + Plan note Future Appointments Appointment Date:01/02/2025 02:00:00 PM Scheduled Provider:KELSEY OTTO MD Location:[facility] Appointment Type:GS OV Post Op Appointment Date:02/09/2025 10:30:00 AM Scheduled Provider:AURY SCHNEIDER DO Location:[facility] Appointment Type:PC OV Future Scheduled Tests Radiology* US Abdomen Complete 06/17/24 [facility] Evaluation note* Diagnosis Aortic stenosis, severe Aortic valve disorders documented in this encounter [facility] Work Phone: Evaluation note* Diagnosis Aortic stenosis, severe Aortic valve disorders documented in this encounter [facility] Work Phone: Evaluation note* Diagnosis Aortic valve stenosis, etiology of cardiac valve disease unspecified documented in this encounter [facility] Work Phone: Evaluation note* Diagnosis Onset Date Resolution Status Disc degeneration, lumbar ac [employer] [place] [employer] [place] Obesity acute Osteoarthritis of left hip a cute Rash noneactive [facility] Work Phone: Evaluation note* Diagnosis Onset Date Resolution Status Rash noneactive [facility] Work Phone: Evaluation note* Diagnosis Onset Date Resolution Status COVID-19 acute [facility] Work Phone: Evaluation note* Diagnosis Onset Date Resolution Status History of colon polyps acut e [facility] Work Phone: Evaluation note* Diagnosis Onset Date Resolution Status Strain of right hand acute Strain of right hand acute Strain of right hand acute Strain of right hand acute Obesity acute Dyslipidemia chronic Essential (primary) hypertension chronic Nonobstructive atherosclerosis of coronary artery chronic [facility] Work Phone: Evaluation note* Diagnosis Radiculopathy, lumbar region Thoracic or lumbosacral neuritis or radiculitis, unspecified Radiculopathy, lumbar region- Primary Thoracic or lumbosacral neuritis or radiculitis, unspecified [facility] Escoto [facility] December 09, 2022 7:43am Note Date/Time December 09, 2022 7:43a m [facility] Medical Records Department [address] [place] [address] History & Physical Exam 12/09/22 0740 MR#: [id number] Acct: [id number] Name: CHRISTOPHER SILVA Rep #:[id number] : 1955 67 From: Tay molina MD PCP: Dr. Aury Schneider, DO Status:[facility] Location: [address] HPI - General HPI Narrative CHRISTOPHER SILVA, is a 67 M who presents for surveillance colonoscopy. Patient's colonoscopy was 5 years ago and he had a polyp removed. He denies abdominal pain or blood in the stool. He does report he had bleeding with his last colonoscopy. [facility] Medical History (Updated 12/09/22 @ 07:[address] Tay Escoto MD) Arthritis Back pain Blepharitis of left lower eyelid Bradycardia with 41-50 beats per minute Cancer Cardiology follow-up encounter Chalazion left lower eyelid Colonic polyp Coronary artery disease COVID-19 virus detected (08/03/21) CPAP (continuous positive airway pressure) dependence Disc degeneration, lumbar Dyslipidemia Elevated troponin Elevated troponin Essential (primary) hypertension Fatigue Former smoker Gastric reflux Hay fever Hiatal hernia Hiatal hernia High cholesterol History of echocardiogram History of hepatitis C History of hiatal hernia History of stress test History of transesophageal echocardiography (CHIKA) Hypertension Hypogonadism in male Hypoxemia Knee pain Left shoulder pain Leg cramps Lower GI bleed Morbid obesity with BMI of 45.0-49.9, adult Myasthenia gravis Nonobstructive atherosclerosis of coronary artery Nonrheumatic aortic (valve) stenosis Obstructive sleep apnea Osteoarthritis of left hip Prostate cancer Rheumatoid arthritis Shoulder pain Sleep apnea Wears glasses Home Medications furosemide 40 mg tablet 40 mg PO DAILY diuretic/water pill 02/14/15 [History Last Taken 06/11/22] niacin 500 mg tablet 500 mg PO QHS supplement 02/14/15 [History Last Taken 06/11/22] omega-3 acid ethyl esters 1 gram capsule 2 gm PO DAILY supplement 02/14/15 [History Last Taken 12/02/22] potassium chloride 20 mEq tablet,extended release(part/cryst) 20 meq PO DAILY supplement 02/14/15 [History Last Taken 06/11/22] testosterone cypionate 100 mg/mL intramuscular oil 1 ml IM Q14D hormone 02/14/15[History Last Taken 06/11/22] folic acid 800 mcg tablet 0.8 mg PO DAILY supplement 03/09/17 [History Last Taken 06/11/22] lisdexamfetamine 50 mg capsule 60 mg PO DAILY ADHD 03/09/17 [History Last Taken 06/11/22] benazepril 40 mg tablet 40 mg PO DAILY blood pressure 07/12/19 [History Last Taken 06/12/22 04:45] ergocalciferol (vitamin D2) 1,250 mcg (50,000 unit) capsule 50,000 unit PO Q7D supplement 08/19/20 [History Last Taken 06/11/22] pregabalin 100 mg capsule 100 mg PO TID pain 01/25/21 [History Last Taken 06/11/22] sildenafil 100 mg tablet 100 mg PO DAILY PRN Erectile Dysfunction 11/04/21 [History Last Taken 06/11/22] 5-HTP 18.8 mg-tyrosine 187.5 xc-fbcxbokmb-zxebfqxd-B6-C-chrom capsule 1 cap PO QHS supplement 06/26/22 [History Last Taken Unknown] calcium 600 mg capsule 1,200 mg PO DAILY supplement 06/26/22 [History Last Taken Unknown] aspirin 81 mg tablet,delayed release 81 mg PO DAILY 12/03/22 [History Last Taken 12/02/22] vitamin X55-xghawyc B1 5.5 mg-12.5 mcg/5 mL oral liquid 1 ml PO TID 12/03/22 [History Last Taken Unknown] acetaminophen 500 mg tablet 1,000 mg PO Q8 PRN pain 12/04/22 [History Last Taken Unknown] Allergy/AdvReac Type Severity Reaction Status Date / Time hydromorphone HCl Allergy nausea, Verified 12/04/22 08:19 [From Dilaudid] confusion Family History Mother Skin cancer Surgical History (Updated 12/04/22 @ 08:17 by Karen Young) H/O laminectomy H/O total knee replacement History of appendectomy History of back surgery History of cardiac catheterization History of carpal tunnel release History of cataract surgery History of colonoscopy History of elbow surgery History of hip replacement (~2021) History of knee surgery History of left heart catheterization (08/20/20) History of lumbar surgery History of shoulder surgery History of transcatheter aortic valve replacement (TAVR) (11/26/20) Social History (Updated 12/04/22 @ 08:18 by Karen Young) household members: spouse current occupational status: employed Smoking Status: Former smoker alcohol intake: never Past Medical/Surgical History Planned Operation Planned Operative Procedure/s: COLONOSCOPY Previous Hospitalizations/Surgeries HX Hospitalizations: No Any Problems With Anesthesia: No You/Your Family Experience Fever (Hyperthermia) With Anes: No Cholinesterase deficiency: No Cardiovascular Hx Chest Pain within Last 2 months: No Hx of Irregular Heartbeat and/or Afib: No Hx Heart Attack: No Hx Hypertension: Yes (CONTROLLED WITH MED) Hx Cardiac Surgery/Stents/Etc.: No Hx Pain in Legs when Walking/Leg Cramps: No Respiratory Hx Chronic Obstructive Pulmonary Disease (COPD): No Hx Emphysema: No Hx Sleep Apnea: Yes CPAP: Yes BIPAP: No Hx Respiratory Tract Infection/Cold (presently): No Result (for STOP score): Positive Hx Smoking: Yes (QUIT 45 YEARS AGO) Smoking Status: Former smoker Gastrointestinal Hx Gastrointestinal Bleed: Yes (polyp removed) Hx Ulcer: Yes (4th grade) Difficulty Chewing/Swallowing: No Hx Unplanned Weight Loss of 20#: No Neurological Hx Seizures: No Hx Multiple Sclerosis: No Hx Parkinson's Disease: No Does patient have nerve stimulator: No Blood Disorder Hx Hepatitis: Yes (HEP. 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) Recent Exposure to Contagious Disease: No Allergies hydromorphone HCl [From Dilaudid] Allergy (Verified 12/04/22 08:19) nausea, confusion Maternal: Family History Mother Skin cancer No pertinent history Discharge Is Pt Admitted From a Usp, or a Custodial: No After D/C, Where Do you Plan to Go: Return Home From the [facility] History Number of Risk Factors: 5 Vital Signs Vital Signs Vital Signs: 12/09/22 07:25 12/09/22 07:27 Temperature 99.3 F H Temperature Source Temporal Pulse Rate 88 Respiratory Rate 18 Respiratory Pattern Normal Blood Pressure 119/71 Blood Pressure Mean 87 Blood Pressure Source Monitor Blood Pressure Position Semi-Fowlers Blood Pressure Location Left Arm Pulse Ox 95 Oxygen Delivery Method Room Air Weight Weight: 313 lb 3.2 oz Body Mass Index (BMI) 46.9 Physical Exam Const alert and oriented x3 HEENT normocephalic Eyes PERRL Resp normal respiratory effort and normal air movement Cardio regular rate and regular rhythm GI soft to palpation, non-tender and non-distended Extremity normal to inspection Assessment & Plan Assessment/Plan (1) History of colon polyps: PLAN: I explained endoscopy in detail to the patient. I explained the risks including but not limited to stroke or heart attack with anesthesia, perforationof the GI tract, bleeding, infection. I explained that any of these could necessitate further emergency surgery. The patient understands and all questions were answered sufficiently. The patient wishes to proceed with procedure. Tay Escoto MD Pager: [facility] [address] [place] [address], [address] [place] [address] Office: Surgery Risks - Colonoscopy Risks Include but are not Limited To: Risks include but are not limited to: Bleeding, perforation requiring further surgery, inability to complete colonoscopy requiring barium enema. 12/09/22 0743 <Electronically signed by Tay Escoto MD> Cosigner Signature (if applicable): CC: Dr. Tay Escoto MD; Dr. Aury Schneider, DO~ Signed [facility] Work Phone: Hospital course Narrative No data available for this section [facility] Hospital Discharge instructions Additional Instructions Please contact your ticket counter office later today to inform them of the symptoms was brought to the ER and discuss having a outpatient stress test performed. Continue all of your medications as directed by your doctor and return to the ER should you have any further concerns or worsening of [facility] Work Phone: Hospital Discharge instructions No data available for this section [facility] Progress note No data available for this section [facility] Reason for referral (narrative)No reason for referral information availableWThe [facility] Work Phone: Advance Directives No Advanced Directives Records FoundLatest Code Status on File Code Status Date Activated Date Inactivated Comments Full Code 11/26/2020 9:10 AM Full Code 11/26/2020 5:46 AM 11/26/2020 8:59 AM Latest Code Status on File Code Status Date Activated Date Inactivated Comments Full Code 11/26/2020 9:10 AM 11/27/2020 4:31 PM Full Code 11/26/2020 5:46 AM 11/26/2020 8:59 AM Advance Directive Response Recorded Date/ Time Living Will No October 06, 2021 2:40pm Power of Elevating Grader Operator No October 06 2:40pm Advance Directive Response Recorded Date/ Time Living Will No March 01 3:18pm Power of Elevating Grader Operator No March 01 3:18pm Advance Directive Response Recorded Date/ Time Living Will No April 09, 2022 10:45pm Power of Elevating Grader Operator No March 10:45pm Advance Directive Response Recorded Date/ Time Living Will No June 12 1:00pm Power of Elevating Grader Operator No June 12, 2022 1:00pm Advance Directive Response Recorded Date/ Time Living Will No June 26, 022 7:55pm Power of Elevating Grader Operator No June 26, 2022 7:55pm Advance Directive Response Recorded Date/ Time Living Will No June 26, 10:44pm Power of Elevating Grader Operator No June 26, 2022 10:44pm Advance Directive Response Recorded Date/ Time Living Will No December 03, 2022 2 :50pm Power of Elevating Grader Operator No December 03, 2022 2:50pm Advance Directive Response Recorded Date/ Time Living Will No January 08, 2023 11:11pm Power of Elevating Grader Operator No January 08 11:11pm Advance Directive Response Recorded Date/ Time Living Will No January 29, 2023 4:02pm Power of Elevating Grader Operator No January 29 4:02pm Advance Directive Response Recorded Date/ Time Living Will No August 10:51pm Power of Elevating Grader Operator No September 10, 2023 10:51pm Advance Directive Response Recorded Date/ Time Living Will No September 24, 2023 8:15am Power of Elevating Grader Operator No September 23 8:15am Reason for Referral Status Reason Specialty Diagnoses / Procedures Referre d By Contact Referred To Contact Closed Cardiology Diagnoses Aortic stenosis, severe Procedures ECHO Complete 2D W Doppler W Color Shana Huerta, LPN RN HOSPICE - [facility] [address] [place], [place] [id number] Specialty Diagnoses / Procedures Referred By Contac t Referred To Contact Cardiology Diagnoses Aortic valve stenosis, etiology of cardiac valve disease unspecified Procedures ECHO Complete 2D W Doppler W Color Shana Huerta, LPN RN HOSPICE - MAT WORKER [address] [id number] Referral ID Status Reason Start Date Expiration Date Visits Re quested Visits Authorized [id number] Closed 11/02/2021 11/02/2022 1 1 Family History No Family History Records Found Relationship Condition Age at Onset Recorded Date/T aliza Unknown Family History?No pe rtinent history Unknown March 09, 2017 7:07pm Family History?No pe rtinent history Unknown September 11, 2017 12:37pm Relationship Condition Age at Onset Recorded Date/T aliza Unknown Family History?No pe rtinent history Unknown March 09, 2017 6:07pm Family History?No pe rtinent history Unknown September 11, 2017 11:37am Relationship Condition Age at Onset Recorded Date/T aliza mother Malignant neoplasm of skin Unknown Summary Purpose Chief Complaint and Reason for Visit Chief Complaint Admit Date LUE and LLE coldness, 6 M FU November 02, 2024 8:38am PVD November 14, 2024 2:32pm Reason for Visit Admit Date Cool skin November 02, 2024 8:3 8am Other specified peripheral vascular dise ases November 02, 2024 8:38am Chief Complaint left hip xray Rash Amb Documentation BRONCHITIS HIP Reason for Visit Disc degeneration, l umbar Obesity Osteoarthritis of left hip Rash COVID-19 Chief Complaint Rash Amb Documentation BRONCHITIS HIP L ARM Reason for Visit Rash COVID-19 Chief Complaint BRONCHITIS HIP L ARM Other nondisplaced fracture of upper end of left h Reason for Visit COVID-19 Chief Complaint HIP L ARM Other nondisplaced fracture of upper end of left h 1 Y FU LEFT REVERSE TOTAL SHOULDER LEFT REVERSE TOTAL SHOULDER Reason for Visit Essential (primary) hypertension History of transcatheter aortic valve replacement (TAVR) Nonobstructive atherosclerosis of coronary artery Osteoarthritis, shoulder Chief Complaint HIP L ARM Other nondisplaced fracture of upper end of left h 1 Y FU LEFT REVERSE TOTAL SHOULDER LEFT REVERSE TOTAL SHOULDER CHEST PAIN CHEST PAIN, ELEVATED TROPONIN Reason for Visit Essential (primary) hypertension History of transcatheter aortic valve replacement (TAVR) Nonobstructive atherosclerosis of coronary artery Osteoarthritis, shoulder Left shoulder pain Chief Complaint HIP L ARM Other nondisplaced fracture of upper end of left h 1 Y FU LEFT REVERSE TOTAL SHOULDER LEFT REVERSE TOTAL SHOULDER CHEST PAIN ELEVATED TROPONIN ELEVATED TROPONIN ELEVATED TROPONIN ELEVATED TROPONIN Reason for Visit Essential (primary) hypertension History of transcatheter aortic valve replacement (TAVR) Nonobstructive atherosclerosis of coronary artery Osteoarthritis, shoulder Chest pain Elevated troponin Left shoulder pain Essential (primary) hypertension History of transcatheter aortic valve replacement (TAVR) Nonobstructive atherosclerosis of coronary artery Chief Complaint LEFT EYE IRRITATION Amb Documentation Reason for Visit History of colon josefina yps Chief Complaint LEFT EYE IRRITATION Amb Documentation DIFFICULTY CONCENTRATING Reason for Visit History of colon josefina yps Chief Complaint [address] [facility] FU/ [place] RIGHT WRIST INJURY/ [facility] [place] STRAIN OF MUSCLE, FASCIA/TENDON AT WRIST. RX HERE [facility] FU/ [place] 9 M FU Reason for Visit Strain of right hand Strain of right hand Strain of right hand Strain of right hand Obesity Dyslipidemia Essential (primary) hypertension Nonobstructive atherosclerosis of coronary artery Chief Complaint COVID EXPOSURE CHEST PAIN S/P [facility] CP fsll H/O TAVR H/O TAVR Amb Documentation Reason for Visit COVID-19 virus detec justin Obesity Dyslipidemia Essential (primary) hypertension Nonobstructive atherosclerosis of coronary artery Chief Complaint COVID EXPOSURE CHEST PAIN S/P [facility] CP fsll H/O TAVR H/O TAVR Amb Documentation ATHEROSCLEROTIC HEART DISEASE Amb Documentation Reason for Visit COVID-19 virus detec justin Obesity Dyslipidemia Essential (primary) hypertension Nonobstructive atherosclerosis of coronary artery Chief Complaint Admit Date COUGH/FEVER July 25, 2024 1 2:07pm LUE and LLE coldness, 6 M FU November 02, 2024 8:38am PVD November 14, 2024 2:32pm Chief Complaint Admit Date LUE and LLE coldness, 6 M FU November 02, 2024 8:38am PVD November 14, 2024 2:32pm SURGICAL CLEARANCE December 13, 2024 12:51 pm Reason for Visit Admit Date Cool skin November 02, 2024 8:3 8am Other specified peripheral vascular dise ases November 02, 2024 8:38am History of transcatheter aortic valve re placement (TAVR) December 13, 2024 12:51pm Obesity December 13, 2024 12:51 pm Dyslipidemia December 13, 2024 12:51 pm Essential (primary) hypertension Birdie 3r d, 2025 12:51pm Nonobstructive atherosclerosis of auguste ry artery December 13, 2024 12:51pm Chief Complaint Admit Date LUE and DAT coldness, 6 M FU November 02, 2024 8:38am PVD November 14, 2024 2:32pm SURGICAL CLEARANCE December 13, 2024 12:51 pm Presence of prosthetic heart valve January 03, 2025 12:56pm Amb Documentation January 03, 2025 3:54 pm Reason for Visit Admit Date Cool skin November 02, 2024 8:3 8am Other specified peripheral vascular dise ases November 02, 2024 8:38am History of transcatheter aortic valve re placement (TAVR) December 13, 2024 12:51pm Obesity December 13, 2024 12:51 pm Preoperative clearance December 13, 2024 12 :51pm Dyslipidemia December 13, 2024 12:51 pm Essential (primary) hypertension December 12:51pm Nonobstructive atherosclerosis of auguste ry artery December 13, 2024 12:51pm Additional Source Comments Ordered Prescriptions (unrec ognized section and content) Prescription Sig Dispensed Refills Start Date End Da te clopidogrel (PLAVIX) 75 MG tablet Take 1 tablet by mouth daily 30 tablet 2 11/27/2020 Scheduled Active and Recently Administ ered Medications (unrecognized section and content) Medication Order 11/25/2020 11/26/2020 11/27/2020 aspirin EC tablet 81 mg 81 mg, Oral, DAILY, First dose on Thu11/27/20 at 0900, Do not crush or break. 0836 (Given - Provid er: Michelle Barnett RN) ceFAZolin (ANCEF) 3,000 mg in dextrose 5 % 100 mL IVPB (CANCELED) 3,000 mg, Intravenous, AUTOMATIC DRILL OPERATOR TO O.R., 1 dose, On Thu11/26/20 at 0615, Administer within 1 hour prior to incision. Repeat in 2 hours after initial dose if still intra-op., Pre-op (day of surgery) 0924 (Given by Other Clinician - Provider: Michelle Barnett RN - Comment: given at 732 am in or) clopidogrel (PLAVIX) tablet 300 mg (COMPLETED) 300 mg, Oral, ONCE, On Thu11/26/20 at 0930, For 1 dose, Post-op 1048 (Given - Provider: Michelle Barnett RN) clopidogrel (PLAVIX) tablet 75 mg 75 mg, Oral, DAILY, First dose on Thu11/27/20 at 0915 0857 (Given - Provid er: Michelle Barnett RN) furosemide (LASIX) tablet 40 mg 40 mg, Oral, DAILY, First dose on Thu11/27/20 at 0900 0836 (Given - Provid er: Michelle Barnett RN) lisinopril (PRINIVIL;ZESTRIL) tablet 40 mg 40 mg, Oral, DAILY, First dose on Thu11/26/20 at 0930, Hold on operative day for SBP less than 120. Substituted for Benazepril (LOTENSIN). 1344 (Given - Provider: Michelle Barnett RN) 0902 (Given - Provider: Michelle Barnett RN) pantoprazole (PROTONIX) tablet 40 mg 40 mg, Oral, DAILY, First dose on Thu11/26/20 at 0930, Do not crush or break., Post-op 1046 (Given - Provider: Michelle Barnett RN) 0559 (Given - Provider: LIDIA DAWKINS) potassium chloride (KLOR-CON) packet 20 mEq (CANCELED) 20 mEq, Oral, DAILY, First dose on Thu11/27/20 at 0900, Dilute with at least 4 ounces of cold water. May further dilute if GI adverse effects occur. 0840 (Given - Provid er: Michelle Barnett RN) pregabalin (LYRICA) capsule 100 mg 100 mg, Oral, 3 TIMES DAILY, First dose (after last modification) on Thu11/26/20 at 1000 1047 (Given - Provider: Michelle Barnett RN)1400 (Due)2125 (Given - Provider: Kena Sheehan RN) 0558 (Given - Provider: LIDIA DAWKINS)1321 (Given - Provider: Michelle Barnett RN)2200 (Due) Continuous Medication Order 11/25/2020 11/26/2020 11/27/2020 0.9 % sodium chloride infusion (CANCELED) Intravenous, at 50 mL/hr, CONTINUOUS, Starting on Thu11/26/20 at 0615, Upon admission to sameday - please start iv if patient does not have iv access., Pre-op (day of surgery) 0604 (New Bag - Provider: Keisha Womack, BRITTANEY)0905 (Stopped - Provider: Michelle Barnett RN) 0.9 % sodium chloride infusion Intravenous, at [...] hours., Post-op 1345 (Given - Provider: Michelle Barnett RN)2125 (Given - Provider: Kena Sheehan RN) 0604 [...] 5-40 mL, Intravenous, PRN, Line Care, Per Heart Nurse Request, Starting on Thu11/26/20 at 0643, For 72 hours, May use order for Line Care after every IV line use and Agitated Saline Bubble Study. Administration for Bubble Study per ammunition officer request for only. Remove 1 mL 0.9% [...] 5-40 mL, Intravenous, PRN, Line Care, Per Heart Nurse Request, Starting on Thu11/26/20 at 0910, For 72 hours, May use order for Line Care after every IV line use and Agitated Saline Bubble Study. Administration for Bubble Study per ammunition officer request for only. Remove 1 mL 0.9% [...] for Visit (unrecogniz ed section and content) Status Reason Specialty Diagnoses / Procedures Referre d By Contact Referred To Contact Closed Cardiology Diagnoses Aortic stenosis, severe Procedures ECHO Complete 2D W Doppler W Color Shana Huerta, LPN RN HOSPICE - MAT WORKER [address] [address] Reason Comments Online Content Developer - Other Reminder Call Goals (unrecognized section and content) Goals may be documented in a n alternate sectionGoals may be documented in an alternate sectionGoals may be documented in an alternate sectionGoals may be documented in an alternate sectionGoals may be documented in an alternate sectionGoals may be documented in an alternate sectionGoals may be documented in an alternate sectionGoals may be documented in an alternate sectionGoals may be documented in an alternate section No data available for this sectionGoals may be documented in an alternate sectionGoals may be documented in an alternate section No data available for this section No data available for this sectionGoals may be documented in an alternate sectionGoals may be documented in an alternate sectionGoals may be documented in an alternate section Care Teams (unrecognized sec tion and content) Well Logging Captain Relationship Specialty Start Date End Date Aury Schneider [address] [facility] [place] [address] PCP - General Urgent Care 10/24/20 Team Status: Active Member Role Status Dates Dr. Aury Schneider DO Family Provider Active Dr. Aury Schneider DO Primary Care Provider Active Team Status: Inactive Member Role Status Dates Dr. Aury Schneider DO Primary Care Provider, Referrin g Provider Active Leo Fontenot PA, PA Attending Provider Active Team Status: Active Member Role Status Dates Dr. Aury Schneider DO Primary Care Provider Active Karen Young Attending Provider Active Team Status: Active Member Role Status Dates Dr. Aury Schneider DO Primary Care Provider, Referrin g Provider Active Dr. Tay Escoto MD Attending Provider, Other Provider Active Team Status: Inactive Member Role Status Dates Dr. Aury Schneider DO Primary Care Provider, Referrin g Provider Active Dr. Tay Escoto MD Attending Provider Active Team Status: Inactive Member Role Status Dates Dr. Aury Schneider DO Primary Care Provider Active Dr. Josue Jamison MD Emergency Provider Active Team Status: Inactive Member Role Status Dates Dr. Aury Schneider DO Primary Care Provider, Referrin g Provider Active Francisco CERVANTES, PA Attending Provider Active Team Status: Inactive Member Role Status Dates Dr. Aury Schneider DO Primary Care Provider, Referrin g Provider Active Juan Lundy WEATHERCASTER, WEATHERCASTER-C Attending Provider Active Team Status: Inactive Member Role Status Dates Dr. Aury Schneider DO Primary Care Provider Active Francisco CERVANTES, PA Attending Provider, Referring Provi kuldip Active Team Status: Inactive Member Role Status Dates Dr. Aury Schneider , DO Primary Care Provider Active Dr. Jose Trinh , DO Emergency Provider Active Team Status: Inactive Member Role Status Dates Dr. Aury Schneider , DO Primary Care Provider, Referrin g Provider Active Dr. Sean Spring MD Active Brittani Graham WEATHERCASTER, WEATHERCASTER-C Attending Provider Active Team Status: Inactive Member Role Status Dates Dr. Aury Schneider , DO Primary Care Provider Active Dr. Jose Trinh , DO Attending Provider, Emergency Pr ovider Active Team Status: Inactive Member Role Status Dates Dr. Aury Schneider , DO Primary Care Provider Active Dr. Akbar Ewing , DO Emergency Provider Active Team Status: Active Member Role Status Dates Dr. Aury Schneider , DO Primary Care Provider Active Brittani Graham WEATHERCASTER, WEATHERCASTER-C Referring Provider, Other Provi kuldip Active Dr. Fred Bond MD Attending Provider Active Team Status: Active Member Role Status Dates Dr. Aury Schneider DO Primary Care Provider Active Brittani Graham WEATHERCASTER, WEATHERCASTER-C Attending Provider Active Team Status: Inactive Member Role Status Dates Dr. Aury Schneider , DO Primary Care Provider Active Brittani Graham WEATHERCASTER, WEATHERCASTER-C Attending Provider, Referring P rovider Active Team Status: Inactive Member Role Status Dates Dr. Aury Schneider , DO Primary Care Provider Active Dr. Akbar Ewing , DO Attending Provider, Emergency P rovider Active Team Status: Active Member Role Status Dates Dr. Aury Schneider , DO Primary Care Provider Active Dr. Fred Bond MD Attending Provider Active Well Logging Captain Relationship Specialty Start Date End Date Konstantin spencer (Historic) PCP - General 06/11/09 Well Logging Captain Relationship Specialty Start Date End Date Konstantin Brown (Historic) PCP - General 06/11/09 Well Logging Captain Relationship Specialty Start Date End Date Konstantin Brown (Historic) PCP - General 06/11/09 Team Status: Active Member Role Status Dates Dr. Aury Schneider , DO Primary Care Provider Active Team Status: Inactive Member Role Status Dates Dr. Aury Schneider , Primary Care Provider Active Start: July 25, 2024 End: July 25, 2024 Dr. Aury Schneider DO Referring Provider Active Start: July 25, 2024 End: July 25, 2024 Leo CERVANTES PA Attending Provider Active Start: July 25, 2024 End: July 25, 2024 Team Status: Inactive Member Role Status Dates Dr. Aury Schneider DO Primary Care Provider Active Start: November 02, 2024 End: November 02, 2024 Dr. Aury Schneider DO Referring Provider Active Start: November 02, 2024 End: November 02, 2024 HELEN Nash Attending Provider Active Star t: November 02, 2024 End: November 02, 2024 Team Status: Inactive Member Role Status Dates Dr. Aury Schneider DO Primary Care Provider Active Start: November 14, 2024 End: November 14, 2024 HELEN Nash Attending Provider Active Star t: November 14, 2024 End: November 14, 2024 HELEN Nash Referring Provider Active Star t: November 14, 2024 End: November 14, 2024 Team Status: Active Member Role Status Dates Dr. Aury Schneider DO Primary Care Provider Active Start: November 14, 2024 Dr. Akbar Louis MD Attending Provider Active S tart: November 14, 2024 Team Status: Active Member Role Status Dates Dr. Aury Schneider DO Primary Care Provider Active Start: November 14, 2024 Dr. Akbar Louis MD Attending Provider Active S tart: November 14, 2024 HELEN Nash Referring Provider Active Star t: November 14, 2024 Team Status: Inactive Member Role Status Dates Dr. Aury Schneider DO Primary Care Provider Active Start: December 13, 2024 End: December 13, 2024 Dr. Aury Schneider DO Referring Provider Active Start: December 13, 2024 End: December 13, 2024 Brittani Graham WEATHERCASTER, WEATHERCASTER-C Attending Provider Active Start: December 13, 2024 End: December 13, 2024 Team Status: Active Member Role/Relationship Status Dates Dr. Aury Schneider DO Primary Care Provider Active Team Status: Inactive Member Role/Relationship Status Dates Dr. Aury Schneider DO Primary Care Provider Active Start: November 02, 2024 End: November 02, 2024 Dr. Aury Schneider DO Referring Provider Active Start: November 02, 2024 End: November 02, 2024 HELEN Nash Attending Provider Active Star t: November 02, 2024 End: November 02, 2024 Team Status: Inactive Member Role/Relationship Status Dates Dr. Aury Schneider DO Primary Care Provider Active Start: November 14, 2024 End: November 14, 2024 HELEN Nash Attending Provider Active Star t: November 14, 2024 End: November 14, 2024 HELEN Nash Referring Provider Active Star t: November 14, 2024 End: November 14, 2024 Team Status: Active Member Role/Relationship Status Dates Dr. Aury Schneider DO Primary Care Provider Active Start: November 14, 2024 Dr. Akbar Louis MD Attending Provider Active S tart: November 14, 2024 HELEN Nash Referring Provider Active Star t: November 14, 2024 Team Status: Inactive Member Role/Relationship Status Dates Dr. Aury Schneider DO Primary Care Provider Active Start: December 13, 2024 End: December 13, 2024 Dr. Aury Schneider DO Referring Provider Active Start: December 13, 2024 End: December 13, 2024 Brittani Graham WEATHERCASTER, WEATHERCASTER-C Attending Provider Active Start: December 13, 2024 End: December 13, 2024 Team Status: Inactive Member Role/Relationship Status Dates Dr. Aury Schneider DO Primary Care Provider Active Start: January 03, 2025 End: January 03, 2025 Brittani Graham WEATHERCASTER, WEATHERCASTER-C Attending Provider Active Start: January 03, 2025 End: January 03, 2025 Brittani Graham WEATHERCASTER, WEATHERCASTER-C Referring Provider Active Start: January 03, 2025 End: January 03, 2025 Team Status: Active Member Role/Relationship Status Dates Dr. Aury Schneider DO Primary Care Provider Active Start: January 03, 2025 Dr. Fred Bond MD Attending Provider Active S tart: January 03, 2025 Team Status: Active Member Role/Relationship Status Dates Dr. Aury Schneider DO Primary Care Provider Active Start: January 03, 2025 Brittani Graham WEATHERCASTER, WEATHERCASTER-C Attending Provider Active Start: January 03, 2025 Team Status: Inactive Member Role/Relationship Status Dates Dr. Aury Schneider DO Primary Care Provider Active Start: February 16, 2025 End: February 16, 2025 Kena Ramirez Attending Provider Active Start : February 16, 2025 End: February 16, 2025 Kena Ramirez Referring Provider Active Start : February 16, 2025 End: February 16, 2025 (unrecognized sect ion and content) No Status Records FoundNo Status Records FoundNo Status Records FoundNo Status Records FoundNo Status Records FoundNo Status Records FoundNo Status Records Found INFORMATION SOURCE (unrecogn ized section and content) DATE CREATED AUTHOR 11/29/2021 [facility] DATE CREATED AUTHOR AUTHOR'S ORGANIZ ATION 03/12/2024 [facility] ([place]) DATE CREATED AUTHOR AUTHOR'S ORGANIZ ATION 04/09/2024 [facility] DATE CREATED AUTHOR AUTHOR'S ORGANIZ ATION 04/09/2024 [facility] DATE CREATED AUTHOR AUTHOR'S ORGANIZ ATION 01/01/2025 [facility] DATE CREATED AUTHOR AUTHOR'S ORGANIZ ATION 02/17/2025 [facility] DATE CREATED AUTHOR AUTHOR'S ORGANIZ ATION 03/07/2025 [facility] Source Comments (unrecognize d section and content) In the event this informatio n is protected by the Federal Confidentiality of Alcohol and Drug Abuse Patient Records regulations: The Federal rules restrict any use of the information to criminally investigate or prosecute any alcohol or drug abuse patient.[facility] Hospital[facility] the event this information is protected by the Federal Confidentiality of Alcohol and Drug Abuse Patient Records regulations: The Federal rules restrict any use of the information to criminally investigate or prosecute any alcohol or drug abuse patient.[facility] the event this information is protected by the Federal Confidentiality of Alcohol and Drug Abuse Patient Records regulations: The Federal rules restrict any use of the information to criminally investigate or prosecute any alcohol or drug abuse patient.[facility] FOR RECORDS PERTAINING TO PATIENTS WHO ARE [...] BE BASED ON THE PRIMARY CLINICAL RECORDS. [employer] [facility]. provides no warranty or guarantee of the accuracy or completeness of information in this document.
== END | disposition home or self-care (01) ==
LOC: CT 07:14
PROVIDERS: PCP Family Medicine; Referring Provider Student in an Organized Health Care Education/Training Program; Visit Provider Student in an Organized Health Care Education/Training Program
DX: M19.011 Primary osteoarthritis, right shoulder (principal)
CPT/HCPCS: 73200

== ENCOUNTER 2025-03-30 09:48 | Observation (INO) | payer BC, SELFPAY ==
--- NOTE | 2025-03-08 07:16 | EKG12_ITS ---
Test Reason : PREOP Blood Pressure : */* mmHG Vent. Rate : 74 BPM Atrial Rate : 74 BPM P-R Int : 192 ms QRS Dur : 88 ms QT Int : 360 ms P-R-T Axes : 25 11 64 degrees QTcB Int : 399 ms Normal sinus rhythm Normal ECG Confirmed by SANTI STEVENS ([id number]), associate editor ALFREDO SHAVER ([id number]) on 03/08/2025 1:48:29 PM Referred By: SEBASTIÁN Confirmed By: SANTI STEVENS
--- NOTE | 2025-03-09 19:51 | PAT.ANESEVAL ---
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 When Was Last Pacemaker Check QUESTION #4 FULL TEXT: You/Your Family Experience fever (hyperthermia) with Anesthesia Last Oral Intake Last Oral intake: Last Oral Intake NPO since Meds taken in AM with sips of water? 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 Female No 03/06/25 09:26 HX of Motion Sickness No 03/06/25 09:26 HX of N/V After Surgery No 03/06/25 09:26 Non-Smoker Yes 03/06/25 09:26 Duration of Surgery greater Yes 03/06/25 09:26 than 60 minutes Number of Risk Factors 2 03/06/25 09:26 PONV Score Moderate Risk 03/06/25 09:26 Height & Weight Height & Weight: Anesthesia: Height & Weight Height 5 ft 9 in 12/13/24 06:27 Respiratory Assessment Respiratory Assessment - athletic director: Respiratory Tract Infection Hx - athletic director Hx Respiratory Tract Infection No 03/06/25 09:26 STOP Sleep Apnea STOP Sleep Apnea - athletic director: STOP Sleep Apnea - athletic director Hx Hypertension Yes: CONTROLLED WITH MEDS 03/06/25 09:26 Hx Sleep Apnea Yes 03/06/25 09:26 CPAP No 03/06/25 09:26 BIPAP Yes 03/06/25 09:26 Do you snore loudly (louder than talking or can be heard Do you often feel tired/ fatigued/ sleepy during daytime? Has anyone observed you stop breathing during sleep? STOP Results Positive 03/06/25 09:26 QUESTION #5 FULL TEXT : Do you snore loudly (louder than talking or can be heard through closed doors)? 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 Specify any problems Hx of Preganancy in last 3 N/A 03/06/25 09:26 Months Nurse Filling Out Transfusion VCHRISTIN 03/06/25 09:26 & Questions: Date: 03/06/25 03/06/25 09:26 Time: 03/06/25 09:26 Patient unable to answer at this time (ie. confused, unrespo /Reproduction History /Reproductive History - athletic director: /Reproductive Hx- athletic director Hx Now No 03/06/25 09:26 Gestational Age (in weeks): EDC: Hx Hx Para Hx Section SAB No 03/06/25 09:26 PFSH Medical History Non-smoker Thyroid disease BiPAP (biphasic positive airway pressure) dependence High cholesterol Back pain (~2023) History of hiatal hernia Gastric reflux Hypertension History of transesophageal echocardiography (CHIKA) Blepharitis of left lower eyelid Chalazion left lower eyelid Elevated troponin Left shoulder pain Coronary artery disease Wears glasses Cancer Sleep apnea Former smoker Leg cramps History of stress test History of echocardiogram Cardiology follow-up encounter History of hepatitis C Rheumatoid arthritis Hiatal hernia Myasthenia gravis Disc degeneration, lumbar Osteoarthritis of left hip COVID-19 virus detected (08/03/21) Hiatal hernia Hypoxemia Obstructive sleep apnea Nonrheumatic aortic (valve) stenosis Elevated troponin Nonobstructive atherosclerosis of coronary artery Essential (primary) hypertension Bradycardia with 41-50 beats per minute Prostate cancer Knee pain Hay fever Fatigue Shoulder pain Arthritis Hypogonadism in male Dyslipidemia Lower GI bleed Colonic polyp Morbid obesity with BMI of 45.0-49.9, adult Home Medications ?Medication ?Instructions ?Recorded ?Last Taken ?Type furosemide 40 mg tablet 40 mg PO DAILY diuretic/water pill 02/14/15 03/17/24 History omega-3 acid ethyl esters 1 gram 2 gm PO DAILY supplement 02/14/15 03/15/24 History capsule potassium chloride 20 mEq 20 meq PO DAILY supplement 02/14/15 03/16/24 History tablet,extended release(part/cryst) testosterone cypionate 100 mg/mL 1 ml IM Q14D hormone 02/14/15 06/11/22 History intramuscular oil folic acid 800 mcg tablet 0.8 mg PO DAILY supplement 03/09/17 03/15/24 History benazepril 40 mg tablet 40 mg PO DAILY blood pressure 07/12/19 03/18/24 05:30 History ergocalciferol (vitamin D2) 1,250 50,000 unit PO Q7D supplement 08/19/20 03/13/24 History mcg (50,000 unit) capsule pregabalin 100 mg capsule 100 mg PO TID pain 01/25/21 03/16/24 History sildenafil 100 mg tablet 100 mg PO DAILY PRN Erectile 11/04/21 06/11/22 History Held on 03/06/25. Dysfunction Instructions: ON HOLD aspirin 81 mg tablet,delayed 81 mg PO DAILY 12/03/22 03/14/24 History release vitamin [id number] B1 5.5 mg-12.5 1 ml PO BID 12/03/22 03/15/24 History mcg/5 mL oral liquid acetaminophen 500 mg tablet 1,000 mg PO Q8 PRN pain 12/04/22 Unknown History ascorbic acid (vitamin C) 1,000 mg 1 g PO DAILY 05/12/23 03/15/24 History capsule levothyroxine 50 mcg tablet 50 mcg PO DAILY 05/12/23 03/17/24 History diclofenac sodium 1 % topical gel 2 g topical ONCE PRN pain 09/18/23 Unknown History (Voltaren Arthritis Pain) calcium 500 mg (as 1 tab PO DAILY 90 days #90 tabs 03/18/24 Unknown Rx carbonate)-vitamin D3 15 mcg (600 unit) tablet (Os-Andrew 500 + D3) lisdexamfetamine 70 mg capsule 70 mg PO QAM 12/13/24 Unknown History (Vyvanse) niacin 500 mg tablet 1,000 mg PO QHS supplement 12/13/24 Unknown History tadalafil 20 mg tablet 20 mg PO PRN 03/06/25 Unknown History Allergy/AdvReac Type Severity Reaction Status Date / Time hydromorphone HCl (From Allergy Severe nausea, Verified 03/06/25 09:09 Dilaudid) confusion hydromorphone (From Dilaudid) AdvReac Severe Nausea/Vom/ Verified 03/06/25 09:09 Diarrhea Family History (Reviewed 12/13/24 @ 15:02 by Brittani Graham TRANSITIONAL CARE MANAGER, TRANSITIONAL CARE MANAGER-C) Mother Skin cancer Surgical History (Updated 03/06/25 @ 09:37 by Betzy Weaver) History of back surgery Hx of hernia repair Hx of foot surgery History of amputation of toe (~03/2024) History of colonoscopy History of cardiac catheterization History of hip replacement (~2021) History of shoulder surgery History of transcatheter aortic valve replacement (TAVR) (11/26/20) History of lumbar surgery History of left heart catheterization (08/20/20) History of knee surgery History of carpal tunnel release History of back surgery History of elbow surgery History of cataract surgery H/O laminectomy History of appendectomy H/O total knee replacement Social History household members: spouse current occupational status: employed Smoking Status: Former smoker alcohol intake: never Audit: Pertinent Findings Pertinent Findings EKG Perinent findings: March 08, 2025. Normal sinus rhythm. Stress test pertinent findings: October 13, 2023. EF of 62%. Basal inferior wall infarct is noted. No ischemia is noted. Echo (EF%) pertinent findings: 01/03/2025. EF of 65%. Bioprosthetic aortic valve. Mean aortic valve gradient is 37 mmHg. Peak aortic valve gradient is 63 mmHg. Compared to previous study, the gradients are mildly increased. Heart catheterization pertinent findings: August 20, 2020. Mild coronary artery disease with no high-grade obstructive lesions noted. Plan for medical therapy. Consult pertinent findings: December 13, 2024. [facility]. 1. Status post transcatheter aortic valve replacement-11/26/2020. Reassess valve with repeat echo. Continue antibiotic prophylaxis. 2. Nonobstructive atherosclerosis of the coronary artery-last stress test October 13, 2023 was negative for ischemia. Stable at this time. Denies any recent symptoms or events. Continue aspirin 81 mg. 3. Hypertension-mildly elevated in the office today. Continue current medical therapy. Monitoring blood pressures at home. Cleared for surgery of December 19, 2024. (Unclear if this was ever completed.) Recommendation Anesthesia Recommendation Anesthesia recommendation: OPTIMIZED for anesthesia (Patient's aortic valve gradients are slowly increasing. Avoid increased heart rates and lower blood pressures. Phenylephrine is drug of choice.)
[2025-03-10 17:47] LABS: Hematocrit 48.6 % (40-54); Hemoglobin 16.1 g/dL (13.0-16.5); Immature Granulocytes Count 0.010 X10^3/uL (0.0-0.0); Mean Corp Hgb Conc 33.1 g/dL (32-36); Mean Corpuscular Volume 92.7 fL (80-94); Mean Platelet Vol. 11.0 fl (6.2-12.0); NRBC Flagged by Analyzer 0 % (0-5); Platelet Count 283 K/mm3 (150-450); RBC Distribution Width CV 12.9 % (11.6-14.6); RBC Distribution Width SD 43.8 fl (35.1-43.9); Red Blood Count 5.24 M/mm3 (4.6-6.2); White Blood Count 6.2 K/mm3 (4.4-11.0)
[2025-03-10 18:22] LABS: Albumin, Serum 4.1 g/dL (3.4-4.8); Anion Gap 9 (5-15); BUN 11 mg/dL (4-19); BUN/Creat Ratio 11.1 RATIO (10-20); Calcium,Total 9.2 mg/dL (7.6-11.0); Carbon Dioxide 30.0 mmol/L (21.0-32.0); Chloride 104 mmol/L (98-108); Glucose 81 mg/dL (70-99); Potassium 4.4 mmol/L (3.3-5.1)
[2025-03-10 21:30] LABS: Magnesium 2.2 mg/dL (1.5-2.2)
[2025-03-30] VITALS (15 sets, daily range): BP systolic 107–158; BP diastolic 61–84; PULSE 70–84; RESP 14–18; TEMP 36.2–37.1; O2SAT 95–99; BMI 46.2
--- OUTSIDE RECORDS SUMMARY | 2025-03-30 05:38 | XMS RPT_ITS | CCD ---
Author Organization [facility] Care Team Providers Care [place] Cutter Name Role Phone Aury Schneider Primary Care Provider [phone] Dr. Aury Schneider Primary Care Provider Dr. Aury Schneider Referring Provider [phone] Mikie CERVANTES PA Shana Ardon Attending Provider Dr. Aury Schneider Primary Care Provider Dr. Aury Schneider Referring Provider Dr. Fritz Goode Attending Provider [phone] Fred Bond Attending Provider HELEN Reynolds Attending Provider Cecy Cespedes Attending Provider Unavailable HELEN Kothari Attending Provider Dr. Aury Schneider Primary Care Provider Dr. Aury Schneider Referring Provider Dr. Aury Schneider Primary Care Provider Dr. Aury Schneider Referring Provider Dr. Aury Schneider Primary Care Provider Dr. Aury Schneider Referring Provider [phone] Mikie CERVANTES PA Shana Ardon Attending Provider Dr. Doug Jenkins Admit Provider Dr. Doug Jenkins Referring Provider Dr. Doug Jenkins Other Provider HELEN Peter Other Provider Dr. Supriya Clark Attending Provider Dr. Supriya Clark Other Provider Dr. Yadi Hines Emergency Provider MD Alfredo Bennett Attending Provider Dr. Clemencia Mejia Admit Provider Dr. Clemencia Mejia Attending Provider Dr. Clemencia Mejia Other Provider Dr. Vane Collins Other Provider 1([facility])[phone] Fred Bond Attending Provider 1([facility])[phone] Fred Bond Other Provider Dr. Vane Collins Attending Provider 1([facility])[phone] Dr. Aury Schneider Primary Care Provider 1([facility])[phone] Dr. uAry Schneider Referring Provider 1([facility])[phone] Corie CERVANTES, PA Leo Ardon Attending Provider Karen Young Attending Provider Unavailable Dr. Tay Escoto Attending Provider [phone] Dr. Tay Escoto Other Provider 1([facility])[phone] Dr. Aury Schneider Primary Care Provider 1([facility])[phone] Dr. Aury Schneider Referring Provider 1([facility])[phone] Sumeet CERVANTES, PA Francisco Attending Provider [phone] Kamron REAL ESTATE SUBAGENT, REAL ESTATE SUBAGENT-C Juan Boland Attending Provider Dr. Aury Schneider Primary Care Provider 1([facility])[phone] Dr. Aury Schneider Referring Provider Kamron REAL ESTATE SUBAGENT, REAL ESTATE SUBAGENT-C Juan Boland Attending Provider Dr. Aury Schneider Primary Care Provider 1([facility])[phone] Dr. Aury Schneider Referring Provider 1([facility])[phone] Kamron REAL ESTATE SUBAGENT, REAL ESTATE SUBAGENT-C Juan Boland Attending Provider Santos PUGH, REAL ESTATE SUBAGENT-Doyle Peter Attending Provider Santos REAL ESTATE SUBAGENT, REAL ESTATE SUBAGENT-C Brittani Referring Provider Santos REAL ESTATE SUBAGENT, REAL ESTATE SUBAGENT-C Brittani Other Provider [phone] Dr. Fred Bond Attending Provider AURY SCHNEIDER DO Attending Unavailable AURY SCHNEIDER DO Primary Care Unavailable JOSÉ LUIS PART TIME RECEPTIONIST-QUALITY ASSURANCE MONITOR, RENALDO Attending Unava ilable AURY SCHNIEDER DO Primary Care Unavailable Konstantin Roman (Historic) Primary Care Prov ider KONSTANTIN ROMAN (HISTORIC) Primary Care U navailable ALFREDO GO Referring Unavailable AURY SCHNEIDER DO Primary Care Physician Dr. Aury Schneider DO Primary Care Provider Dr. Aury Schneider DO Referring Provider Leo Kothari Attending Provider Ely aRngel Attending Provider Ely Rangel Referring Provider [phone] Akbar Louis MD Attending Provider Dr. Aury Schneider DO Primary Care Provider [phone] Dr. Aury Schneider DO Referring Provider Santos REAL ESTATE SUBAGENT-C, Brittani Attending Provider [phone] AURY SCHNEIDER [...] SCHNEIDER DO Primary Care Unavailable JOSÉ LUIS PART TIME RECEPTIONIST-QUALITY ASSURANCE MONITOR, RENALDO Attending Unava ilable Sumava Resorts, Kena Attending Provider [place], Kena Referring Provider Wyatt TEJADA, Dr. Mccollum Primary Care Provider [phone] Wyatt TEJADA, Dr. Mccollum Referring Provider [phone] Sebastián TEJADA, Dr. Camacho Attending Provider Sebastián DO, Dr. Camacho Referring Provider Wyatt, Aury Referring Unavailable Monsalve, Ely Attending Unavailable Wyatt, Aury Primary Care Unavailable Wyatt, Aury Referring Unavailable Wyatt, Aury Primary Care Unavailable Brittani Graham Attending Unavailable Wyatt, Aury Referring Unavailable Wyatt, Aury Primary Care Unavailable Fred Bond Attending Unavailable Wyatt, Aury Primary Care Unavailable VarunFred Attending Unavailable Wyatt, Aury Referring Unavailable Wyatt, Aury Attending Unavailable Wyatt, Aury Primary Care Unavailable Wyatt, Aury Primary Care Unavailable Brittani Graham Referring Unavailable Brittani Graham Attending Unavailable Wyatt, Aury Referring Unavailable Richie Nuno Attending Unavailable Wyatt, Aury Primary Care Unavailable Oleghe OLS, Efewongbe Attending Unavailabl e Wyatt, Aury Primary Care Unavailable Akbar Louis Attending Unavailable Wyatt, Aury Primary Care Unavailable Monsalve, Ely Referring Unavailable Wyatt, Aury Primary Care Unavailable Brittani Graham Attending Unavailable Wyatt, Aury Referring Unavailable Wyatt, Aury Primary Care Unavailable Leo Fontenot Attending Unavailable Irene REAL ESTATE SUBAGENT, Jelly Attending Unavailable Wyatt, Aury Primary Care Unavailable Irene REAL ESTATE SUBAGENT, Jelly Attending Unavailable Wyatt, Aury Primary Care Unavailable Oleghe OLS, Efewongbe Referring Unavailabl e Oleghe OLS, Efewongbe Attending Unavailabl e Wyatt, Aury Primary Care Unavailable Wyatt, Aury Primary Care Unavailable Monsalve, Ely Referring Unavailable Monsalve, Ely Attending Unavailable Oleghe OLS, Efewongbe Attending Unavailabl e Wyatt, Aury Primary Care Unavailable Wyatt, Aury Primary Care Unavailable Santi Jane Attending Unavailable Doug Jenkins Referring Unavailable Wyatt, Aury Primary Care Unavailable Doug Jenkins Referring Unavailable Doug Jenkins Attending Unavailable Wyatt, Aury Primary Care Unavailable Sumava [place]orts, Kena Referring Unavailable Sumava [place], Kena Attending Unavailable Wyatt, Aury Primary Care Unavailable Doug Jenkins Referring Unavailable Doug Jenkins Attending Unavailable Hernan Short Attending UnavailAury Calvert Primary Care Unavailable Hernan Short Attending Unavailkeila e Wyatt Aury Primary Care Unavailable Hernan Short Attending UnavailAury Calvert Primary Care Unavailable Wyatt, Aury Primary Care Unavailable Hernan Kenyon Attending Unavailable Wyatt, Aury Primary Care Unavailable Aury Schneider Referring Unavailable Ely Monsalve Attending Unavailable Richie Nuno Attending Unavailable Aury Schneider Referring Unavailable Wyatt, Aury Primary Care Unavailable Allergies Allergy Classification Reported Allergen(s) Allergy Type Date of Onset Reaction(s) Facility Opioid Agonists (2 sources) HYDROmorphone Drug Allergy 1 Nausea And Vomiting [facility] (15 sources) HYDROmorphone; Translations: [hydromorphone HCl] Drug Allergy 2 Other, nausea, confusion [facility] (14 sources) HYDROmorphone; Translations: [HYDROMORPHONE] Drug Allergy 6 Nausea And Vomiting, Vomiting, Vomiting (disorder) [facility] Comment on above: Severe Vomiting (1 source) HYDROmorphone Drug Allergy 5 [facility] Rep[facility] Medications Current Medications Medication Drug Class(es) [...] / HYDROcodone bitartrate 5 mg oral tablet (20 sources) Opioid Agonist Start: 12-19-2024 End: 12-24-2024 [place] 325- 5 mg oral tablet Dose = 1 tab(s), Oral, q4h, PRN Pain, scale 1-6, X 5 day(s), # 12 tab(s), 0 Refill(s), Pharmacy: [facility]/pharmacy #[id number], Acute post-operative pain, 172.7, cm, [...] T PO EVERY 4 HOURS NEEDED 14 2 October 06, 2021 amoxicillin 500 mg oral [...] 2022 12:00am Start: 06-26-2022 B12 Active Dec emb2021 12:00am benazepril hydrochloride 40 mg oral tablet [...] mg / cholecalciferol 600 unt oral tablet (6 sources) Vitamin D Start: 03-18-2024 Calcium Carbonate-Vitami [...] Active diclofenac sodium 0.01 mg/mg topical gel (9 sources) Nonsteroidal Anti-inflammatory Drug Start: 09-18-2023 Diclofenac Sodium (Voltaren Arthritis Pain) 1 % gel Active 2 g TOPICAL ONCE as needed for pain September 18, 2023 1:00am apply to single elbow, wrist or hand; for hand includes palm/fingers/terrie k of hand Start: 09-18-2023 Diclofenac Sod ium (Voltaren Arthritis Pain) 1 % gel Active 2 GM TOPICAL ONCE September 18, 2023 1:00am apply to single elbow, wrist or hand; for hand includes palm/fingers/back of hand [facility] (3 sources) Start: 03-21-2024 DME MISCellane ous See Instructions, BD SYRINGE 3ML, NEEDLES 25G-1.5 INCHES. USE ONE SYRINGE Q 2WEEKS., # 6 EA, 11 Refill(s), Pharmacy: [facility]/pharmacy #[id number], 175, cm, 03/08/24 8:07:00 EDT, Height, 137.2, kg, 03/08/24 8:07:00 EDT, Dosing Weight Start Date: 03/21/24 Status: Ordered Quantity: 6.0 Unit: EA Repeat number: 12 Start: 03-21-2024 DME MISCellane ous See Instructions, BD SYRINGE 3ML, NEEDLES 25G-1.5 INCHES. USE ONE SYRINGE Q 2WEEKS., # 6 EA, 11 Refill(s), Pharmacy: [facility]/pharmacy #[id number], 175, cm, 03/08/24 8:07:00 EDT, Height, 137.2, kg, 03/08/24 8:07:00 EDT, Dosing Weight Start Date: 03/21/24 Status: Ordered docusate sodium 50 mg / sennosides, care home 8.6 mg oral tablet (18 sources) Start: 06-26-2022 take 2 tablets by [...] qWeek, # 13 cap(s), 1 Refill(s), Pharmacy: [facility]/pharmacy #[id number], 175, cm, 08/12/24 9:18:00 EST, Height, kg, 08/12/24 9:18:00 EST, Dosing Weight Start Date: 09/27/24 Status: Ordered Quantity: 13.0 Unit: cap(s) Repeat number: 2 Start: 10-23-2022 take 1 capsule by [facility] every week ergocalciferol 50,000 intl units (1.25 mg) oral capsule 1 cap(s), Oral, qWeek, # 13 cap(s), 1 Refill(s), Pharmacy: [facility]/pharmacy #[id number], 175, cm, 09/01/22 10:29:00 EST, Height, kg, 09/01/22 10:29:00 EST, Dosing Weight Start Date: 10/23/22 Status: Ordered Start: 08-19-2020 Ergocalciferol (Vitamin D2) 50,000 UNIT capsule Active 30602 U PO Q7D August 19, 2020 1:00am [...] Ordered Start: 03-09-2017 take 1 tablet by [facility] once daily Folic Acid 0.8 MG tablet [...] pill levothyroxine sodium 0.05 mg oral tablet (17 sources) l-Thyroxine Start: 10-27-2024 take 1 tablet by mouth once daily levothyroxine 50 mcg (0.05 mg) oral tablet 1 tab(s), Oral, qDay, X30 DAY(S. TAKE ON AN EMPTY STOMACH, # 90 tab(s), 1 Refill(s), Pharmacy: [facility]/pharmacy #[id number], 175, cm, 08/12/24 9:18:00 EST, Height, kg, 08/12/24 9:18:00 EST, Dosing Weight Start Date: 10/27/24 Status: Ordered Quantity: 90.0 Unit: tab(s) Repeat number: 2 Start: 08-14-2023 take 1 tablet by [facility] once daily levothyroxine 50 mcg (0.05 mg) oral tablet 1 tab(s), Oral, qDay, X30 DAY(S. TAKE ON AN EMPTY STOMACH, # 90 tab(s), 1 Refill(s), Pharmacy: [id number], 175, cm, 07/27/23 7:38:00 EST, Height, kg, [...] tablet (20 sources) Nicotinic Acid Start: take 2 tablets by mouth at bedtime Niacin 500 mg tablet Active 1000 mg PO AT BEDTIME December 13, 2024 1:25pm supplement Start: 12-13-2024 take 3 tablets by mo uth at bedtime Niacin 500 mg tablet Active [...] 07/19/2009 Active take 1 capsule by mo uth once daily niacin 500 MG extended release capsule Take 500 mg by mouth nightly 0 Active omega-3 acid ethyl esters (care home) 1000 mg oral capsule (20 sources) Start: 11-09-2024 take 2 capsules by mouth twice daily omega-3 polyunsaturated fatty acids ethyl esters 1000 mg oral capsule 2 cap(s), Oral, BID, # 360 cap(s), 1 Refill(s), Pharmacy: [facility]/pharmacy #[id number], 175, cm, 11/09/24 8:35:00 EDT, Height, kg, 11/09/24 8:35:00 EDT, Dosing Weight Start Date: 11/09/24 Status: Ordered Quantity: 360.0 Unit: cap(s) Repeat number: 2 Start: 02-14-2015 [place]-3 Acid E thyl Esters 1 GM capsule Active 2 NMA PO DAILY February 14, 2015 12:00am supplement Start: 07-19-2009 take 2 capsules by out twice daily omega-3 polyunsaturated fatty acids ethyl esters 1000 mg oral capsule 2 cap(s), Oral, BID, # 360 cap(s), 1 Refill(s), Pharmacy: [id number], 175, cm, 09/28/23 9:52:00 EDT, Height, kg, [...] 17, 2018 9:35am January 25, 2021 9:10am PAIN Start: 03-09-2017 End: 01-25-2021 take 100 mg by mouth three times daily Pregabalin Discontinued 100 MG PO THREE TIMES A DAY November 17, 2018 9:35am January 25, 2021 9:10am take 1 capsule by mo ut three times daily pregabalin (LYRICA) 100 mg capsule Take 100 mg by mouth three times daily. Active take 1 capsule by mo ut three times daily pregabalin (LYRICA) 75 MG capsule Take 75 mg by mouth 3 times daily. 0 Suspended sildenafil 100 mg oral tablet (20 sources) Phosphodiesterase 5 Inhibitor Start: 11-04-2021 take 1 tablet by mouth once daily as needed Sildenafil 100 mg tablet Active 100 mg PO DAILY as needed for Erectile Dysfunction November 04, 2021 12:00am On Hold: ON HOLD 3 ml sodium chloride 9 mg/ml injection (5 sources) Start: 01-02-2021 End: 01-05-2021 sodium chloride flush 0.9 % injection 5-40 mL Start: 11-26-2020 End: 11-29-2020 5-40 mL, Intravenous, PRN, L ine Care, Per Position Description Manager Request, Starting on Thu11/26/20 at 0910, For 72 hours May use order for Line Care after every IV line use and Agitated Saline Bubble Study. Administration for Bubble Study per operator control room request for only. Remove 1 mL 0.9% [...] 11-26-2020 0.9 % sodium chloride infusi on tadalafil 20 mg oral tablet (1 source) Phosphodiesterase 5 Inhibitor Start: 03-06-2025 Tadalafil 20 mg tablet Active 20 mg PO NEEDED March 06, 2025 12:00am testosterone cypionate 100 mg/ml injectable solution (20 sources) Androgen Start: 02-14-2015 inject 1 mL by intramuscular injection every other week Testosterone Cypionate 100 MG/ML oil Active 1 mL IM Q14D February 14, 2015 12:00am hormone Testosterone Cyp ionate (DEPO-TESTOSTERONE IM) Inject 1 [...] q2wk, # 4 mL, 2 Refill(s), Pharmacy: [id number], Male hypogonadism, 175, cm, 11/09/24 8:35:00 EDT, [...] q2wk, # 2 mL, 2 Refill(s), Pharmacy: [id number], Male hypogonadism, 175, cm, 03/08/24 8:07:00 EDT, [...] Refill(s) Start Date: 05/16/24 Status: Ordered Vitamin H29-Rxapgse B1 (7 sources) Start: 12-03-2022 take 1 mL by mouth twice daily Vitamin O02-Iajykcq B1 Active 1 ML PO TWICE A DAY December 03, 2022 12:00am Start: 12-03-2022 take 1 mL by mouth twice daily Vitamin J29-Mrbrsfh B1 Active 1 ML PO TWICE A DAY December 02, 2022 11:00pm Start: 12-03-2022 take 1 mL by mouth t hree times daily Vitamin V11-Akjgczj B1 Active 1 ML PO THREE TIMES A DAY December 02, 2022 11:00pm Start: 12-03-2022 take 1 mL by mouth t hree times daily Vitamin S48-Bfqvtzw B1 Active 1 ML PO THREE TIMES A DAY December 03, 2022 12:00am Vitamin N21-Txvnnpa B1 5.5-12.5 mg-mcg/5 mL Liquid (6 sources) Start: 12-03-2022 take 5.5-12.5 mg by mouth twice daily Vitamin G50-Maqxdie B1 5.5-12.5 mg-mcg/5 mL Liquid Active 1 [...] 2017 12:00am May 15, 2022 9:51am SUPPLEMENT 2qhz-Izszw-Tkdb-Ph yum-C4-A-Chr (9 sources) Start: 06-26-2022 End: 09-10-2023 take 1 capsule by mouth at bedtime 6jbd-Fvuoe-Kfed-Phe ny-B6-C-Chr Discontinued 1 CAP PO AT BEDTIME June 26, 2022 1:00am September 11, 2023 12:05am Start: 06-26-2022 End: 09-10-2023 take 1 capsule by mouth at bedtime 3rtm-Viwqe-Lfuo-Snzdb-Z1-W-Chr Discontin ued 1 CAP PO AT BEDTIME June 26, 2022 12:00am September 10, 2023 11:05pm Start: 06-26-2022 take 1 capsule by mouth at bedtime 4mvi-Cjoem-Gbwy-Szejj-A9-K-Chr Active 1 CAP PO AT BEDTIME June 26, 2022 1:00am Start: 06-26-2022 take 1 capsule by mouth at bedtime 7ppg-Rcupv-Mqqs-Hgxmc-D5-V-Chr Active 1 CAP PO AT BEDTIME June 26, 2022 12:00am 7nwt-Eokcr-Lzhz-Blzno-T6-M-C hr 18.8-187.5-93.8 mg Capsule (6 sources) Start: 06-26-2022 End: 09-10-2023 take 18.8-187.5 capsules by mouth at bedtime 1tbn-Doajl-Aimd-Euxna-L4-M-Chr 18.8-187.5-93.8 mg Capsule Discontinued 1 NMA PO AT BEDTIME June 26, 2022 1:00am September 11, 2023 12:05am supplement Start: 06-26-2022 End: 09-10-2023 take 18.8-187.5 capsules by mouth at bedtime 6cke-Rbyba-Jmzn-Fvmkx-Y8-B-Chr 18.8-187.5-93.8 mg Capsule Discontinued 1 NMA PO AT BEDTIME June 26, 2022 1:00am September 11, 2023 12:05am acetaminophen 325 mg / oxyCODONE hydrochloride 5 mg oral tablet (9 sources) Opioid Agonist Start: 03-18-2024 End: 11-02-2024 [...] blood pressure apixaban 5 mg oral tablet (20 sources) Factor Xa Inhibitor Start: 01-25-2021 End: [...] 12, 2019 1:00am May 16, 2021 1:43pm [facility] Start: 02-14-2015 End: 03-10-2017 take 1 tablet by mouth once daily Aspirin 81 MG Tab.Chew Discontinued 81 mg PO DAILY@0800 February 14, 2015 12:00am March 10, 2017 5:08pm [facility] Start: 07-19-2009 End: 03-25-2024 take 1 tablet by mouth once daily Aspirin 81 mg tablet,delayed release (DR/EC) Discontinued 81 mg PO DAILY 30 30 0 March 18, 2024 12:00am March 25, 2024 10:48am azithromycin 250 mg oral tablet (6 sources) Macrolide Antimicrobial Start: 07-25-2024 End: 11-02-2024 Azithromycin 250 mg tablet Discontinued 250 mg PO .COMPLEX 12 0 July 25, 2024 1:00am November 02, 2024 8:43am 2 tablets (500 mg) on day 1, then 1 tablet daily on days 2 through 11 betamethasone 0.5 mg/ml / clotrimazole 10 mg/ml topical cream (19 sources) Azole Antifungal, Corticosteroid Start: 12-26-2021 End: 05-15-2022 Clotrimazole-Betamet hasone 1-0.05 % cream Discontinued 1 NMA TOPICAL TWICE A DAY 45 14 1 December 26, 2021 12:00am May 15, 2022 9:51am Start: 12-26-2021 End: 05-15-2022 Clotrimazole-Betamethasone D iscontinued 1 APPLIC TOPICAL TWICE A DAY 45 14 December 26, 2021 12:00am May 15, 2022 9:51am Calcium (15 sources) Phosphate Binder, Calcium Start: 06-26-2022 End: [...] mg / cholecalciferol 250 unt oral tablet (20 sources) Vitamin D Start: 03-09-2017 End: 11-17-2018 [...] mL IVPB cephalexin 500 mg oral capsule (19 sources) Cephalosporin Antibacterial Start: 03-01-2022 End: 05-15-2022 [...] mouth once 300 mg, Oral, ONCE, On 11/26/20 at 0930, For 1 dose, Post-op cyclobenzaprine hydrochloride 10 mg oral tablet (15 sources) Muscle Relaxant Start: 03-18-2024 End: 11-02-2024 [...] tablet Discontinued 6 mg PO DAILY 5 0 August 03, 2021 1:00am November 04, 2021 8:39am docusate sodium 100 mg oral capsule (6 sources) Start: 03-18-2024 End: 11-02-2024 take 1 capsule by mouth once daily Docusate Sodium (Colace) 100 mg capsule Discontinued 100 mg PO DAILY 10 10 March 18, 2024 12:00am November 02, 2024 8:43am doxycycline hyclate 100 mg oral capsule (12 sources) Tetracycline-clas s Drug Start: 02-01-2024 End: 07-25-2024 take 1 capsule by mouth twice daily Doxycycline Hyclate 100 mg capsule Discontinued 100 mg PO TWICE A DAY 28 14 0 March 09, 2024 12:00am March 15, 2024 10:24am fluconazole 150 mg oral tablet (20 sources) Azole Antifungal Start: 01-09-2023 End: 05-12-2023 take 1 tablet by mouth once daily Fluconazole 150 mg tablet Discontinued 150 mg PO DAILY 1 0 January 09, 2023 12:00am May 12, 2023 10:47am Start: 12-26-2021 End: 05-15-2022 Fluconazole (Diflucan) 150 m g tablet Discontinued 150 mg PO Every 3 Days 2 0 December 26, 2021 12:00am May 15, 2022 [...] mouth. Active meloxicam 7.5 mg oral tablet (17 sources) Nonsteroidal Anti-inflammatory Drug Start: 06-13-2022 End: 06-27-2022 take 1 tablet by mouth twice daily Meloxicam 7.5 mg Tablet Discontinued 7.5 mg PO TWICE A DAY 60 30 0 June 13, 2022 1:00am June 27, 2022 4:31pm methylPREDNISolone 4 mg oral tablet (14 sources) Corticosteroid Start: 01-29-2023 End: 02-04-2023 take 1 tablet by mouth once Methylprednisolone (Medrol (Mukesh)) 4 mg tablets,dose pack Discontinued 4 mg PO per package directions 21 6 0 January 29, 2023 12:00am February 03, 2023 12:00am February 04, 2023 12:04am Start: 06-30-2018 methylPREDNISo lone (MEDROL, MUKESH,) 4 mg Dose-Pack Take as directed 1 Package 06/30/2018 Active oxyCODONE hydrochloride 5 mg oral tablet (9 sources) Opioid Agonist Start: 07-07-2024 End: 07-21-2024 [...] tablet Discontinued 10 mg PO As Directed 30 0 March 09, 2023 12:00am May 12, 2023 [...] mg / trimethoprim 160 mg oral tablet (6 sources) Dihydrofolate Reductase Inhibitor Antibacterial, Sulfonamide Antimicrobial [...] 1:02pm Vitamin B Complex 1 EACH capsule (6 sources) Start: 02-14-2015 End: 05-15-2022 Vitamin B [...] gangrene] Onset: 12-14-2024 05-01-2021 Episodic Abdominal pain (9 sources) Abdominal pain; Translations: [Left flank pain] 04-24-2021 Episodic Acquired foot deformities (12 sources) Acquired hallux malleus; Translations: [Other hammer toe(s) (acquired), left foot] 03-18-2024 Chronic Acute and unspecified renal failure (18 sources) Injury of kidney; Translations: [Acute kidney failure, unspecified] 01-09-2023 Episodic Attention-deficit, conduct, and disruptive behavior disorders (6 sources) Attention deficit hyperactivity disorder; Translations: [Attention-deficit [...] Onset: 12-05-2024 Chronic Chronic ulcer of skin (8 sources) Non-pressure chronic ulcer of other part of left foot with fat layer exposed; Translations: [Non-pressure chronic ulcer of other part of left foot with fat layer exposed] Onset: 06-23-2024 01-27-2024 Chronic Complication of device; implant or graft (6 sources) Prosthetic joint mechanical failure; Translations: [Broken internal left hip prosthesis, initial encounter] 02-20-2024 Episodic Complications of surgical procedures or medical care (19 sources) Postoperative wound infection; Translations: [Infection following a procedure, other surgical site, initial encounter] 03-09-2022 Episodic Conditions associated with dizziness or vertigo (20 sources) Dizziness and giddiness; Translations: [Dizziness and giddiness] 10-22-2020 Episodic Coronary atherosclerosis and other heart disease (20 sources) Non-obstructive atherosclerosis of coronary artery; Translations: [Atherosclerotic heart disease of [place] coronary artery without angina pectoris] Chronic Disorders of lipid metabolism (20 sources) Dyslipidemia; Translations: [Hyperlipidemia, unspecified] Onset: 03-08-2024 08-20-2020 Chronic E Codes: Fall (9 sources) Fall; Translations: [Unspecified fall, initial encounter] 09-24-2023 Episodic Essential hypertension (20 sources) Essential hypertension; Translations: [Essential (primary) hypertension] Onset: 11-21-2020 11-21-2020 Chronic Fluid and electrolyte disorders (18 sources) Dehydration; Translations: [Dehydration] 01-09-2023 Episodic Fracture of upper limb (18 sources) Closed fracture of upper end of [...] caused by tuberculosis or sexually transmitted disease) (17 sources) Osteomyelitis, unspecified; Translations: [Osteomyelitis of forefoot] Onset: 03-08-2024 Chronic Inflammation; infection of eye (except that caused by tuberculosis or sexually transmitteddisease) (20 sources) Conjunctivitis; Translations: [Unspecified conjunctivitis] 08-20-2020 Episodic Mycoses (18 sources) Tinea corporis; Translations: [Tinea corporis] Onset: 01-29-2016 01-09-2023 Episodic Nonspecific chest pain (18 sources) Chest pain; Translations: [Chest pain, unspecified] Episodic Nutritional deficiencies (3 sources) Vitamin D deficiency 01-17-2022 Chronic Osteoarthritis (20 sources) Osteoarthritis of left hip joint; Translations: [Unilateral primary osteoarthritis, left hip] Onset: 03-15-2025 Chronic Other acquired deformities (6 sources) Contracture of joint of foot; Translations: [Contracture, left foot] 01-27-2024 Chronic Other and unspecified benign neoplasm (13 sources) History of polyp of colon; Translations: [Personal history of colonic polyps] 12-09-2022 Episodic Other and unspecified benign neoplasm (2 sources) Personal history of colonic polyps; Translations: [Personal history of colonic polyps] 12-09-2022 Episodic Other circulatory disease (11 sources) Peripheral vascular disease; Translations: [Other specified peripheral vascular diseases] 01-27-2024 Chronic Other connective tissue disease (6 sources) Thigh pain; Translations: [Pain in left thigh] 02-28-2024 Episodic Other diseases of bladder and urethra (3 sources) Bladder neck obstruction; Translations: [Bladder-neck obstruction] Onset: 07-19-2009 07-19-2009 Chronic Other endocrine disorders (4 sources) Testicular hypofunction; Translations: [Testicular hypofunction] Onset: 07-27-2023 Chronic Other endocrine disorders (3 sources) Male hypogonadism 10-26-2023 Chronic Other gastrointestinal disorders (20 sources) Diarrhea; Translations: [Diarrhea, unspecified] 07-13-2019 Episodic [...] Intertrigo 03-09-2023 Episodic Other lower respiratory disease (20 sources) Hypoxemia; Translations: [Hypoxemia] 12-29-2020 Episodic Other male genital disorders (3 sources) Impotence 06-05-2021 Chronic Other nervous system disorders (3 sources) Peripheral nerve disease 10-26-2023 Chronic Other nervous system disorders (3 sources) Unable to concentrate 02-09-2024 Chronic Other nervous system disorders (6 sources) Acute postoperative pain; Translations: [Other acute [...] shoulder region] Episodic Other non-traumatic joint disorders (9 sources) Hip pain; Translations: [Pain in left [...] conditions (not mental disorders or infectious disease) (18 sources) Patient encounter status; Translations: [Encounter for screening for malignant neoplasm of colon] Onset: 08-12-2024 12-04-2022 Episodic Other skin disorders (2 sources) Rash and other nonspecific skin eruption; Translations: [Rash and other nonspecific skin eruption] Episodic Other upper respiratory disease (19 sources) Congestion of nasal sinus; Translations: [Nasal [...] influenza immunization 04-13-2019 Episodic Residual codes; unclassified (11 sources) Cool skin; Translations: [Pallor] 11-02-2024 Episodic Spondylosis; intervertebral disc disorders; other back problems (20 sources) Degeneration of lumbar intervertebral disc; Translations: [Other intervertebral disc degeneration, lumbar region] Chronic Spondylosis; intervertebral disc disorders; other back problems (8 sources) Radiculopathy, lumbar region; Translations: [Lumbar radiculopathy] [...] Patient encounter status 12-03-2022 Urinary tract infections (20 sources) Acute pyelonephritis; Translations: [Acute pyelonephritis] 01-04-2018 [...] Test Name Value Interpretation Reference Range Facility MRSA/SAID NASAL SCREENon MRSA+SAID SCRN Reason for Exam: Gallo dustin MRSA MRSA Negative S. AUREUS S. aureus Negative Normal [facility] Comment on above: Performed By: #### M 100.651, L100.0100, L501.9985, L500.2500, L501.1800 #### [facility] [address] [place], [address] Albumin, Serumon 03-10-2025 Albumin [Mass/Vol] 4.1 g/dL Normal 3.4-4.8 [facility] Comment on above: Performed By: #### M 100.651, L100.0100, L501.9985, L500.2500, L501.1800 #### [facility] [address] [place], [address] Basic Metabolic Profile (BMP )on 03-10-2025 BUN/CRE 11.1 RATIO Normal 10-20 [facility] Comment on above: Performed By: #### M 100.651, L100.0100, L501.9985, L500.2500, L501.1800 #### [facility] [address] [place], [address] Calcium [Mass/Vol] 9.2 mg/dL Normal 7.6-11.0 [facility] Comment on above: Performed By: #### M 100.651, L100.0100, L501.9985, L500.2500, L501.1800 #### [facility] [address] [place], [address] Chloride [Moles/Vol] 104 mmol/L Normal 98-108 [facility] Comment on above: Performed By: #### M 100.651, L100.0100, L501.9985, L500.2500, L501.1800 #### [facility] [address] [place], [address] CO2 [Moles/Vol] 30.0 mmol/L Normal 21.0-32.0 [facility] Comment on above: Performed By: #### M 100.651, L100.0100, L501.9985, L500.2500, L501.1800 #### [facility] [address] [place], [address] Creatinine [Mass/Vol] 1.00 mg/dL Normal 0.70-1.20 [facility] Comment on above: Performed By: #### M 100.651, L100.0100, L501.9985, L500.2500, L501.1800 #### [facility] [address] [place], [address] GAP 9 Normal 5-15 [facility] Comment on above: Performed By: #### M 100.651, L100.0100, L501.9985, L500.2500, L501.1800 #### [facility] [address] [place], [address] GFR/1.73 sq M.predicted among non-blacks MDRD (S/P/Bld) [Vol rate/Area] 80 mL/min/{1.73_m2} Normal >60 [facility] Comment on above: Result Comment: mL/m in/1.73m2 CKD-EPI Creatinine Equation (2020) Performed By: #### M 100.651, L100.0100, L501.9985, L500.2500, L501.1800 #### [facility] [address] [place], [address] Glucose [Mass/Vol] 81 mg/dL Normal 70-99 [facility] Comment on above: Performed By: #### M 100.651, L100.0100, L501.9985, L500.2500, L501.1800 #### [facility] [address] [place], [address] Potassium [Moles/Vol] 4.4 mmol/L Normal 3.3-5.1 [facility] Comment on above: Performed By: #### M 100.651, L100.0100, L501.9985, L500.2500, L501.1800 #### [facility] [address] [place], [address] Sodium [Moles/Vol] 143 mmol/L Normal 133-145 [facility] Comment on above: Performed By: #### M 100.651, L100.0100, L501.9985, L500.2500, L501.1800 #### [facility] [address] [place], [address] Urea nitrogen [Mass/Vol] 11 mg/dL Normal 4-19 [facility] Comment on above: Performed By: #### M 100.651, L100.0100, L501.9985, L500.2500, L501.1800 #### [facility] [address] [place], [address] CBC W/Diff, Automatedon 08-2 -2024 Absolute Lymph 1.24 X10 3/uL Normal 0.83-4.51 [facility] Comment on above: Performed By: #### M 100.651, L100.0100, L501.9985, L500.2500, L501.1800 #### [facility] [address] [place], [address] Absolute Neut 4.2 X10 3/uL Normal 2.0-7.7 [facility] Comment on above: Performed By: #### M 100.651, L100.0100, L501.9985, L500.2500, L501.1800 #### [facility] [address] [place], [address] Basophils/100 WBC (Bld) 1.3 % High 0-1 [facility] Comment on above: Performed By: #### M 100.651, L100.0100, L501.9985, L500.2500, L501.1800 #### [facility] [address] [place], [address] Eosinophils/100 WBC (Bld) 3.6 % Normal 0-5 [facility] Comment on above: Performed By: #### M 100.651, L100.0100, L501.9985, L500.2500, L501.1800 #### [facility] [address] [place], [address] Erythrocyte distribution width (RBC) [Ratio] 12.9 % Normal 11.6-14.6 [facility] Comment on above: Performed By: #### M 100.651, L100.0100, L501.9985, L500.2500, L501.1800 #### [facility] [address], [address] Hematocrit (Bld) [Volume fraction] 48.6 % Normal 40-54 [facility] Comment on above: Performed By: #### M 100.651, L100.0100, L501.9985, L500.2500, L501.1800 #### [facility] [address] [place], [address] Hemoglobin (Bld) [Mass/Vol] 16.1 g/dL Normal 13.0-16.5 [facility] Comment on above: Performed By: #### M 100.651, L100.0100, L501.9985, L500.2500, L501.1800 #### [facility] [address] [place], [address] IG% 0.200 Normal 0.0-0.9 [facility] Comment on above: Result Comment: IG% - Immature Granulocytes (promyelocytes, myelocytes and metamyelocytes) > 1% indicates that a LEFT SHIFT is Present. Performed By: #### M 100.651, L100.0100, L501.9985, L500.2500, L501.1800 #### [facility] [address] [place], [address] Lymphocytes/100 WBC (Bld) 20.2 % Normal 19-41 [facility] Comment on above: Performed By: #### M 100.651, L100.0100, L501.9985, L500.2500, L501.1800 #### [facility] [address] [place], [address] MCH (RBC) [Entitic mass] 30.7 pg Normal 27.0-32.0 [facility] Comment on above: Performed By: #### M 100.651, L100.0100, L501.9985, L500.2500, L501.1800 #### [facility] [address] [place], [address] MCHC (RBC) [Mass/Vol] 33.1 g/dL Normal 32-36 [facility] Comment on above: Performed By: #### M 100.651, L100.0100, L501.9985, L500.2500, L501.1800 #### [facility] [address] [place], [address] MCV (RBC) [Entitic vol] 92.7 fL Normal 80-94 [facility] Comment on above: Performed By: #### M 100.651, L100.0100, L501.9985, L500.2500, L501.1800 #### [facility] [address] [place], [address] Monocytes/100 WBC (Bld) 6.7 % Normal 0-10 [facility] Comment on above: Performed By: #### M 100.651, L100.0100, L501.9985, L500.2500, L501.1800 #### [facility] [address] [place], [address] Neutrophils/100 WBC (Bld) 68.0 % Normal 47-70 [facility] Comment on above: Performed By: #### M 100.651, L100.0100, L501.9985, L500.2500, L501.1800 #### [facility] [address] [place], [address] Nucleated RBC (Bld) [#/Vol] 0 10*3/uL Normal 0-5 [facility] Comment on above: Performed By: #### M 100.651, L100.0100, L501.9985, L500.2500, L501.1800 #### [facility] [address] [place], [address] Platelet mean volume (Bld) [Entitic vol] 11.0 fL Normal 6.2-12.0 [facility] Comment on above: Performed By: #### M 100.651, L100.0100, L501.9985, L500.2500, L501.1800 #### [facility] [address] [place], [address] Platelets (Bld) [#/Vol] 283 10*3/uL Normal 150-450 [facility] Comment on above: Performed By: #### M 100.651, L100.0100, L501.9985, L500.2500, L501.1800 #### [facility] [address] [place], [address] RBC (Bld) [#/Vol] 5.24 10*6/uL Normal 4.6-6.2 [facility] Comment on above: Performed By: #### M 100.651, L100.0100, L501.9985, L500.2500, L501.1800 #### [facility] [address] [place], [address] RDW SD 43.8 fl Normal 35.1-43.9 [facility] Comment on above: Performed By: #### M 100.651, L100.0100, L501.9985, L500.2500, L501.1800 #### [facility] [address] [place], [address] WBC (Bld) [#/Vol] 6.2 10*3/uL Normal 4.4-11.0 [facility] Comment on above: Performed By: #### M 100.651, L100.0100, L501.9985, L500.2500, L501.1800 #### [facility] [address] [place], [address] Hemoglobin A1con 03-10-2025 HbA1c (Bld) [Mass fraction] 5.7 % Normal <=5.6 [facility] Comment on above: Result Comment: Norm al < 5.7 % Prediabetic 5.7 - 6.4 % Diabetic >or= 6.5 % Please note range changes. Performed By: #### M 100.651, L100.0100, L501.9985, L500.2500, L501.1800 #### [facility] [address] [facility], [address] Magnesiumon 03-10-2025 Magnesium [Mass/Vol] 2.2 mg/dL Normal 1.5-2.2 [facility] Comment on above: Performed By: #### L 501.9520, L501.5200 #### [facility] [address] [facility] [place], [address] Thyroid Stim Hormone (TSH)on 03-10-2025 TSH 1.840 uIU/mL Normal 0.300-4.200 [facility] Comment on above: Performed By: #### L 501.9520, L501.5200 #### [facility] [address] [place], [address] MR/PAT.ANEon 03-09-2025 MR/PAT.ANE [facility] Medical Records Department [address] [place] [address] PAT - Anesthesia 03/09/251950 MR#: [id number] Acct: [id number] Name: CHRISTOPHER SILVA Rep #: [id number] : 1955 69 From: Jaun Wang MD PCP: Dr. 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 When Was Last Pacemaker Check QUESTION #4 FULL TEXT: You/Your Family Experience fever (hyperthermia) with Anesthesia Last Oral Intake Last Oral intake: Last Oral Intake NPO since Meds taken in AM with sips of water? Meds patient instructed to take am of surgery PONV PONV - managing manager: PONV - managing manager Female No 03/06/25 09:26 HX of Motion Sickness No 03/06/25 09:26 HX of N/V After Surgery No 03/06/25 09:26 Non-Smoker Yes 03/06/25 09:26 Duration of Surgery greater Yes 03/06/25 09:26 than 60 minutes Number of Risk Factors 2 03/06/25 09:26 PONV Score Moderate Risk 03/06/25 09:26 Height Weight Height Weight: Anesthesia: Height Weight Height 5 ft 9 in 12/13/24 06:27 Respiratory Assessment Respiratory Assessment - managing manager: Respiratory Tract Infection Hx - managing manager Hx Respiratory Tract Infection No 03/06/25 09:26 STOP Sleep Apnea STOP Sleep Apnea - managing manager: STOP Sleep Apnea - managing manager Hx Hypertension Yes: CONTROLLED WITH MEDS 03/06/25 09:26 Hx Sleep Apnea Yes 03/06/25 09:26 CPAP No 03/06/25 09:26 BIPAP Yes 03/06/25 09:26 Do you snore loudly (louder than talking or can be heard Do you often feel tired/ fatigued/ sleepy during daytime? Has anyone observed you stop breathing during sleep? STOP Results Positive 03/06/25 09:26 QUESTION #5 FULL TEXT : Do you snore loudly (louder than talking or can be heard through closed doors)? 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 Specify any problems Hx of Preganancy in last 3 N/A 03/06/25 09:26 Months Nurse Filling Out Transfusion VCHRISTIN 03/06/25 09:26 Questions: Date: 03/06/25 03/06/25 09:26 Time: :03/06/25 09:26 Patient unable to answer at this time (ie. confused, unrespo /Reproduction History /Reproductive History - managing manager: /Reproductive Hx- managing manager Hx Now No 03/06/25 09:26 Gestational Age (in weeks): EDC: Hx Hx Para Hx Section SAB No 03/06/25 09:26 PFSH Medical History Non-smoker Thyroid disease BiPAP (biphasic positive airway pressure) [...] Nonrheumatic aortic (valve) stenosis Elevated troponin Nonobstructive athero (more content not included)... Normal [facility] 12 Lead EKGon 03-08-2025 12 Lead EKG [facility] [address] [place] [address] 12 Lead EKG 03/08/25 0802 MR#: [id number] Acct: [id number] Name: CHRISTOPHER SILVA Rep #: [id number] : 1955 69 From: Santi Jane MD Attending Dr: Dr. Doug Jenkins DO Status: [place] [facility] Ordering Dr: Doug Jenkins DO Date: 03/08/25 Location[place] [facility] Sex: M C Admitted: Test Reason : PREOP Blood Pressure : */* mmHG Vent. Rate : 74 BPM Atrial Rate : 74 BPM P-R Int : 192 ms QRS Dur : 88 ms QT Int : 360 ms P-R-T Axes : 25 11 64 degrees QTcB Int : 399 ms Normal sinus rhythm Normal ECG Confirmed by SANTI JANE ([id number]), editor in chief ALFREDO SHAVER ([id number]) on 03/08/2025 1:48:29 PM Referred By: SEBASTIÁN Confirmed By: SANTI JANE 03/08/25 1348 Date Santi Jane MD CC: Dr. Doug Jenkins DO; Dr. Aury Schneider DO Signed Normal [facility] Extremity Upper without Cont raon 03-08-2025 Extremity Upper without Contra [facility] [address] [place], [place] [id number] Extremity Upper without Contra MR#: [id number] Acct: [id number] Name: CHRISTOPHER SILVA Rep #: [id number] : 1955 M 69 From: You Kumar MD PCP: Dr. Aury Schneider DO Status: REG CLI Study: Extremity Upper without Contra Date of Exam: 0 03/08/25 Exam# [id number] Ordering Dr: Doug Jenkins DO PROCEDURE: EXTREMITY UPPER WITHOUT CONTRA 03/08/2025 REASON FOR EXAM: PRIMARY OSTEOARTHRITIS TECHNIQUE: CT right shoulder coronal and Sagittal reconstruction series were provided. One or more dose reduction techniques were used (e.g., Automated exposure control, adjustment of the mA and/or kV according to patient size, use of iterative reconstruction technique. RADIATION DOSE SUMMARY: DLP: 1194 mGycm COMPARISON: None FINDINGS: There is severe osteoarthritis of the glenohumeral articulation with flattening of the articular surfaces, subcortical cyst formation, and marginal osteophytes. There are multiple corticated osteochondral fragments in the joint space with the largest in the superior joint space measuring 1.1 cm and in the anterior joint space measuring 1.1 cm. There is severe AC joint hypertrophy without evidence of separation. There is no suspicious lytic or blastic lesion. There is a mildly enlarged right axillary node measuring 1.2 x 2.7 cm, coronal image 36/100. There is no visible muscular atrophy. CT/Extremity Upper without Contra IMPRESSION: There is severe osteoarthritis of the glenohumeral articulation with flattening of the articular surfaces, subcortical cyst formation, and marginal osteophytes. There is a mildly enlarged right axillary node measuring 1.2 x 2.7 cm, coronal image 36/100. Reading Location: [facility] CC: Dr. Doug Jenkins DO; Dr. Aury Schneider DO Leather Coverer: Signed Normal [facility] L509.3001on 02-17-2025 Testosterone [Mass/Vol] 986.00 ng/dL High 300-720 [facility] Comment on above: Order Comment: ADD O N TESTOSTERONE TOTAL-SWRIGHT Performed By: #### L 501.9940, L509.3001 ####[facility] [id number] [place], [address] Laboratory - Chemistry and C hemistry - challengeOrdered By: Kena Ramirez on 02-16-2025 Testosterone [Mass/Vol] 986.00 ng/dL High 300-720 [facility] PSA,Total- Diagnosticon 08-0 PSA, DIAGNOSTIC 0.25 ng/mL Normal 0.00-4.00 [facility] Comment on above: Result Comment: This test [...] values. Performed By: #### L 501.9940, L509.3001 ####[facility] [id number] [place], [address] TFTESTon 02-14-2025 Free Testost Direct 29.3 pg/mL High 6.6-18.1 [facility] Comment on above: Result Comment: Perf ormed At: [facility] [address] [id number] Tien Fabian MD Ph:[phone] Performed At: [facility] [place] [address] [place], [place] [id number] Nicolas Yanez PhD Ph:[phone] Performed By: #### C BC, ANEU, CMP, GFR, ADIFF #### [address] [address] Testosterone Lvl 1268 ng/dL High 264-916 [facility] Comment on above: Result Comment: Adul t male reference interval is based on a population of healthy nonobese males (BMI <30) between 19 and 39 years old. Jonathan et.al. JCEM 2017,102;4420-3175. PMID: 13650404. Performed By: #### C BC, ANEU, CMP, GFR, ADIFF #### [facility] [address] [place] [address] RFon 02-12-2025 Rheumatoid Factor 61.0 High <=5.9 [facility] Comment on above: Result Comment: RF [...] tests. These results were obtained with the [employer] QUANTA Lite RF IgM JA. RF IgM values obtained with different manufacturers' assay methods may not be used interchangeably. The magnitude of the reported IgM levels cannot be correlated to an endpoint titer. Performed By: #### C BC, ANEU, CMP, GFR, ADIFF #### [address] [address] .Auto Diffon 02-09-2025 Basophil, Absolute 0.1 10 3/mcL Normal 0.0-0.3 [facility] Comment on above: Performed By: #### F T4, GFR, 865523, RF, LIPID, ANEU, ADIFF, CBC, CMP, TSH #### [address] [address] Basophils/100 WBC (Bld) 1.0 % Normal 0.0-2.5 [facility] Comment on above: Performed By: #### F T4, GFR, 587035, RF, LIPID, ANEU, ADIFF, CBC, CMP, TSH #### [address] [address] Eosinophil, Absolute 0.2 10 3/mcL Normal 0.0-0.7 [facility] Comment on above: Performed By: #### F T4, GFR, 997724, RF, LIPID, ANEU, ADIFF, CBC, CMP, TSH #### [address] [address] Eosinophils/100 WBC (Bld) 2.2 % Normal 0.0-6.0 [facility] Comment on above: Performed By: #### F T4, GFR, 024894, RF, LIPID, ANEU, ADIFF, CBC, CMP, TSH #### [address] [address] Lymphocyte, Absolute 1.6 10 3/mcL Normal 0.9-4.3 [facility] Comment on above: Performed By: #### F T4, GFR, 617151, RF, LIPID, ANEU, ADIFF, CBC, CMP, TSH #### [address] [address] Lymphocytes/100 WBC (Bld) 20.2 % Normal 20.0-40.0 [facility] Comment on above: Performed By: #### F T4, GFR, 188995, RF, LIPID, ANEU, ADIFF, CBC, CMP, TSH #### [address] [address] Monocyte, Absolute 0.4 10 3/mcL Normal 0.1-1.4 [facility] Comment on above: Performed By: #### F T4, GFR, 809585, RF, LIPID, ANEU, ADIFF, CBC, CMP, TSH #### [address] [address] Monocytes/100 WBC (Bld) 5.7 % Normal 2.0-13.0 [facility] Comment on above: Performed By: #### F T4, GFR, 895669, RF, LIPID, ANEU, ADIFF, CBC, CMP, TSH #### [address] [address] Neutrophils/100 WBC (Bld) 70.9 % Normal 50.0-75.0 [facility] Comment on above: Performed By: #### F T4, GFR, 738358, RF, LIPID, ANEU, ADIFF, CBC, CMP, TSH #### [address] [address] .GFRon 02-09-2025 Estimated Glomerular Filtration Rate 77 ml/min/1.73sqm Normal [facility] Comment on above: Result Comment: Stages [...] C BC, ANEU, CMP, GFR, ADIFF #### [place] [address] .NEUABSon 02-09-2025 Neutrophil, Absolute 5.4 10 3/mcL Normal 2.3-8.1 [facility] Comment on above: Performed By: #### F T4, GFR, 115717, RF, LIPID, ANEU, ADIFF, CBC, CMP, TSH #### [place] [address] CBCon 02-09-2025 Erythrocyte distribution width (RBC) [Ratio] 14.1 % Normal 11.5-15.5 [facility] Comment on above: Performed By: #### F T4, GFR, 504536, RF, LIPID, ANEU, ADIFF, CBC, CMP, TSH #### [place] [address] Hematocrit (Bld) [Volume fraction] 53.3 % High 40.0-52.0 [facility] Comment on above: Performed By: #### F T4, GFR, 638062, RF, LIPID, ANEU, ADIFF, CBC, CMP, TSH #### [place] [address] Hgb 17.8 G/dL High 13.0-17.5 [facility] Comment on above: Performed By: #### F T4, GFR, 535632, RF, LIPID, ANEU, ADIFF, CBC, CMP, TSH #### [place] [address] MCH (RBC) [Entitic mass] 31.6 pg Normal 27.0-33.0 [facility] Comment on above: Performed By: #### F T4, GFR, 409606, RF, LIPID, ANEU, ADIFF, CBC, CMP, TSH #### [place] [address] MCHC 33.3 G/dL Normal 32.0-36.0 [facility] Comment on above: Performed By: #### F T4, GFR, 391155, RF, LIPID, ANEU, ADIFF, CBC, CMP, TSH #### [place] [address] MCV (RBC) [Entitic vol] 94.8 fL Normal 81.0-100.0 [facility] Comment on above: Performed By: #### F T4, GFR, 992657, RF, LIPID, ANEU, ADIFF, CBC, CMP, TSH #### [place] [address] Platelet 277 10 3/mcL Normal 150-450 [facility] Comment on above: Performed By: #### F T4, GFR, 367809, RF, LIPID, ANEU, ADIFF, CBC, CMP, TSH #### [place] [id number] Platelet mean volume (Bld) [Entitic vol] 9.3 fL Normal 6.4-10.5 [facility] Comment on above: Performed By: #### F T4, GFR, 252666, RF, LIPID, ANEU, ADIFF, CBC, CMP, TSH #### [place] [address] RBC 5.62 10 6/mcL Normal 4.50-6.00 [facility] Comment on above: Performed By: #### F T4, GFR, 760927, RF, LIPID, ANEU, ADIFF, CBC, CMP, TSH #### [place] [id number] WBC 7.7 10 3/mcL Normal 4.5-10.8 [facility] Comment on above: Performed By: #### F T4, GFR, 104700, RF, LIPID, ANEU, ADIFF, CBC, CMP, TSH #### [place] [id number] CMPon 02-09-2025 Albumin Level 4.3 G/dL Normal 3.2-4.8 [facility] Comment on above: Performed By: #### F T4, GFR, 127966, RF, LIPID, ANEU, ADIFF, CBC, CMP, TSH #### [place] [address] Albumin/Globulin [Mass ratio] 1.3 {ratio} Normal 0.9-1.6 [facility] Comment on above: Performed By: #### F T4, GFR, 790002, RF, LIPID, ANEU, ADIFF, CBC, CMP, TSH #### [place] [address] ALP [Catalytic activity/Vol] 93 U/L Normal 38-126 [facility] Comment on above: Performed By: #### F T4, GFR, 964036, RF, LIPID, ANEU, ADIFF, CBC, CMP, TSH #### [place] [address] ALT [Catalytic activity/Vol] 18 U/L Normal 12-55 [facility] Comment on above: Performed By: #### F T4, GFR, 574506, RF, LIPID, ANEU, ADIFF, CBC, CMP, TSH #### [place] [address] AST [Catalytic activity/Vol] 30 U/L Normal 8-34 [facility] Comment on above: Performed By: #### F T4, GFR, 285735, RF, LIPID, ANEU, ADIFF, CBC, CMP, TSH #### [place] [id number] Bili Total 0.80 mg/dL Normal 0.20-1.20 [facility] Comment on above: Result Comment: Use of this assay is not recommended for patients undergoing treatment with eltrombopag due to the potential for falsely elevated results. Performed By: #### F T4, GFR, 429115, RF, LIPID, ANEU, ADIFF, CBC, CMP, TSH #### [place] [address] BUN/Creatinine Ratio 12.5 ratio Normal 10.0-22.0 [facility] Comment on above: Performed By: #### F T4, GFR, 793152, RF, LIPID, ANEU, ADIFF, CBC, CMP, TSH #### [place] [id number] Calcium [Mass/Vol] 9.9 mg/dL Normal 8.7-10.4 [facility] MAIN Comment on above: Performed By: #### F T4, GFR, 337380, RF, LIPID, ANEU, ADIFF, CBC, CMP, TSH #### [address] [address] Chloride [Moles/Vol] 101 mmol/L Normal 98-110 [facility] Comment on above: Performed By: #### F T4, GFR, 860218, RF, LIPID, ANEU, ADIFF, CBC, CMP, TSH #### [address] [address] CO2 [Moles/Vol] 32 mmol/L Normal 22-32 [facility] Comment on above: Performed By: #### F T4, GFR, 577885, RF, LIPID, ANEU, ADIFF, CBC, CMP, TSH #### [address] [address] Creatinine [Mass/Vol] 1.04 mg/dL Normal 0.60-1.40 [facility] Comment on above: Result Comment: Test ing performed on Connolly analyzer using enzymatic creatinine methodology. Performed By: #### F T4, GFR, 289509, RF, LIPID, ANEU, ADIFF, CBC, CMP, TSH #### [address] [address] Electrolyte Balance 10.0 mEq/L Normal 4.0-15.0 [facility] MAIN Comment on above: Performed By: #### F T4, GFR, 701018, RF, LIPID, ANEU, ADIFF, CBC, CMP, TSH #### [address] [address] Globulin 3.4 G/dL Normal 2.5-4.2 [facility] Comment on above: Performed By: #### F T4, GFR, 877661, RF, LIPID, ANEU, ADIFF, CBC, CMP, TSH #### [address] [address] Glucose [Mass/Vol] 96 mg/dL Normal 82-115 [facility] MAIN Comment on above: Performed By: #### F T4, GFR, 962473, RF, LIPID, ANEU, ADIFF, CBC, CMP, TSH #### [address] [address] Potassium [Moles/Vol] 4.4 mmol/L Normal 3.5-5.0 [facility] Comment on above: Performed By: #### F T4, GFR, 323999, RF, LIPID, ANEU, ADIFF, CBC, CMP, TSH #### [address] [address] Sodium [Moles/Vol] 143 mmol/L Normal 136-145 [facility] MAIN Comment on above: Performed By: #### F T4, GFR, 115280, RF, LIPID, ANEU, ADIFF, CBC, CMP, TSH #### [address] [address] Total Protein 7.7 G/dL Normal 5.7-8.2 [facility] Comment on above: Performed By: #### F T4, GFR, 173640, RF, LIPID, ANEU, ADIFF, CBC, CMP, TSH #### [address] [address] Urea nitrogen [Mass/Vol] 13.0 mg/dL Normal 8.0-22.0 [facility] Comment on above: Performed By: #### F T4, GFR, 212082, RF, LIPID, ANEU, ADIFF, CBC, CMP, TSH #### [address] [address] FT4on 02-09-2025 Free T4 [Mass/Vol] 1.19 ng/dL Normal 0.89-1.76 [facility] MAIN Comment on above: Result Comment: No te - New Reference Range in effect 20 Performed By: #### C BC, ANEU, CMP, GFR, ADIFF #### [address] [address] LIPIDon 02-09-2025 Cholesterol [Mass/Vol] 223 mg/dL High 50-199 [facility] Comment on above: Result Comment: Chol esterol Reference Interval: Less than 200 Desirable 200-239 Borderline high risk 240 and above High risk Performed By: #### C BC, ANEU, CMP, GFR, ADIFF #### [address] [address] Cholesterol in HDL [Mass/Vol] 30 mg/dL Low 40-59 [facility] Comment on above: Performed By: #### C BC, ANEU, CMP, GFR, ADIFF #### [facility] [address] [place] [address] Cholesterol in LDL [Mass/Vol] 177 mg/dL High 0-129 [facility] Comment on above: Performed By: #### C BC, ANEU, CMP, GFR, ADIFF #### [facility] [address] [place] [address] Triglyceride [Mass/Vol] 79 mg/dL Normal 3-149 [facility] Comment on above: Performed By: #### C BC, ANEU, CMP, GFR, ADIFF #### [facility] [address] [place] [address] TSHon 02-09-2025 TSH 3.025 mIU/mL Normal 0.550-4.780 [facility] Comment on above: Performed By: #### F T4, GFR, 829530, RF, LIPID, ANEU, ADIFF, CBC, CMP, TSH #### [place] [address] [place] [address] Echo Complete W/ Contraston 01-03-2025 Echo Complete W/ Contrast [facility] [address] [place] [address] Echo Complete W/ Contrast 01/03/25 1306 MR#: [id number] Acct: [id number] Name: CHRISTOPHER SILVA Rep #: [id number] : 1955 69 From: Fred Bond MD Attending Dr: TRUDY Tillman Status: [facility] Ordering Dr: Brittani Graham NP [employer] SUBAGENT-C Date: 01/03/25 Location: [facility] Sex: M C Admitted: Reason For [...] Date Dictated: 01/03/25 1306 Date Transcribed: 01/03/25 153 Leather Coverer: Signed Normal [facility] Echocardiogram study reportO rdered By: Fred Bond on 01-03-2025 Study report [facility] [address] [place] [address] Echo Complete W/ Contrast 01/03/25 1306 MR#: [id number] Acct: [id number] Name: CHRISTOPHER SILVA Rep #:[id number] : 1955 69 From: Fred Rolle Attending Dr: TRUDY Tillman tatus: FRANDY CLI Ordering Dr: Brittani Graham NP Randy e: 01/03/25 Location: [facility] Sex: M C Admitted: Reason For [...] CC: TRUDY Graham; Dr. Aury Schneider DO ~ Date Dictated: 01/03/25 1306 Date Transcribed: 01/03/25 1533 Leather Coverer: Signed [facility] Work Phone: Final Surgical Pathology Rep [facility] 12-21-2024 Final Surgical Pathology Report . Pathology Reports Accession: Collected Date/Time: Received Date/Time: Pathologist: [id number] 12/19/2024 10:32 EDT 12/20/2024 08:48 EDT ELEUTERIO MIRAMONTES MD Final Surgical Pathology Report DIAGNOSIS: UMBILICAL HERNIA REPAIR: - FIBROMEMBRANOUS AND OMENTAL TISSUE CONSISTENT WITH UMBILICAL HERNIA REPAIR CLINICAL INFORMATION: Procedure: OPEN UMBILICAL HERNIA REPAIR Preoperative diagnosis: UMBILICAL HERNIA Postoperative diagnosis: UMBILICAL HERNIA SPECIMEN: A OMENTUM GROSS DESCRIPTION: All parts labelled with patient name and [id number] Received in formalin labelled omentum Is a yellow lobulated balled up segment of omentum measuring 12 x 12 x 3 cm. Tissue is serially sectioned to reveal yellow, lobulated cut surfaces with a central holguin -light brown membranous soft tissue measuring 3 x 1.5 x 1.5 cm. No masses identified grossly. RS-2 Aury Esquivel, Pathologists' Automotive Exhaust Emissions Technician (ASCP) Performed by AURY ESQUIVEL MICROSCOPIC DESCRIPTION: The microscopic examination is performed, except in the case of Gross Only. Verified by Pathology Report verified by [facility] ELEUTERIO MIRAMONTES Sign out Date: 12/21/2024 13:09 Performing Lab: [facility], [address] [place] [address] Pathology Dept Disclaimer If ancillary studies were utilized, the following Laboratory Developed Test (LDT) disclaimer will apply: Under CLIA requirements, [facility] Pathology Laboratory is qualified to perform high complexity testing. For all ancillary stains, positive and negative controls stain appropriately. Performance characteristics of immunohistochemical and chromogenic in-situ hybridization tests have been determined by [facility] Pathology Laboratory. These tests are used for clinical purposes, They should not be regarded as investigational or for research. Normal [facility] .Auto Diffon 12-14-2024 Basophil, Absolute 0.1 10 3/mcL Normal 0.0-0.3 [facility] MAIN Comment on above: Performed By: #### C BC, ANEU, CMP, GFR, ADIFF #### [address] [address] Basophils/100 WBC (Bld) 1.0 % Normal 0.0-2.5 [facility] Comment on above: Performed By: #### C BC, ANEU, CMP, GFR, ADIFF #### [address] [address] Eosinophil, Absolute 0.3 10 3/mcL Normal 0.0-0.7 [facility] MAIN Comment on above: Performed By: #### C BC, ANEU, CMP, GFR, ADIFF #### [address] [address] Eosinophils/100 WBC (Bld) 4.1 % Normal 0.0-6.0 [facility] Comment on above: Performed By: #### C BC, ANEU, CMP, GFR, ADIFF #### [address] [address] Lymphocyte, Absolute 1.3 10 3/mcL Normal 0.9-4.3 [facility] MAIN Comment on above: Performed By: #### C BC, ANEU, CMP, GFR, ADIFF #### [address] [address] Lymphocytes/100 WBC (Bld) 17.9 % Low 20.0-40.0 [facility] Comment on above: Performed By: #### C BC, ANEU, CMP, GFR, ADIFF #### [address] [address] Monocyte, Absolute 0.5 10 3/mcL Normal 0.1-1.4 [facility] MA[facility] Comment on above: Performed By: #### C BC, ANEU, CMP, GFR, ADIFF #### [address] [address] Monocytes/100 WBC (Bld) 7.0 % Normal 2.0-13.0 [facility] Comment on above: Performed By: #### C BC, ANEU, CMP, GFR, ADIFF #### [address] [address] Neutrophils/100 WBC (Bld) 70.0 % Normal 50.0-75.0 [facility] Comment on above: Performed By: #### C BC, ANEU, CMP, GFR, ADIFF #### [address] [address] .GFRon 12-14-2024 Estimated Glomerular Filtration Rate 89 ml/min/1.73sqm Normal [facility] Comment on above: Result Comment: Stages [...] C BC, ANEU, CMP, GFR, ADIFF #### [address] [address] .NEUABSon 12-14-2024 Neutrophil, Absolute 5.1 10 3/mcL Normal 2.3-8.1 [facility] MAIN Comment on above: Performed By: #### C BC, ANEU, CMP, GFR, ADIFF #### [address] [address] CBCon 12-14-2024 Erythrocyte distribution width (RBC) [Ratio] 14.2 % Normal 11.5-15.5 [facility] Comment on above: Performed By: #### C BC, ANEU, CMP, GFR, ADIFF #### [place] [address] Hematocrit (Bld) [Volume fraction] 50.2 % Normal 40.0-52.0 [facility] Comment on above: Performed By: #### C BC, ANEU, CMP, GFR, ADIFF #### [place] [address] Hgb 16.7 G/dL Normal 13.0-17.5 [facility] Comment on above: Performed By: #### C BC, ANEU, CMP, GFR, ADIFF #### [place] [address] MCH (RBC) [Entitic mass] 30.9 pg Normal 27.0-33.0 [facility] Comment on above: Performed By: #### C BC, ANEU, CMP, GFR, ADIFF #### [place] [address] MCHC 33.3 G/dL Normal 32.0-36.0 [facility] Comment on above: Performed By: #### C BC, ANEU, CMP, GFR, ADIFF #### [place] [address] MCV (RBC) [Entitic vol] 92.8 fL Normal 81.0-100.0 [facility] Comment on above: Performed By: #### C BC, ANEU, CMP, GFR, ADIFF #### [place] [address] Platelet 257 10 3/mcL Normal 150-450 [facility] Comment on above: Performed By: #### C BC, ANEU, CMP, GFR, ADIFF #### [place] [address] Platelet mean volume (Bld) [Entitic vol] 9.0 fL Normal 6.4-10.5 [facility] Comment on above: Performed By: #### C BC, ANEU, CMP, GFR, ADIFF #### [place] [address] RBC 5.40 10 6/mcL Normal 4.50-6.00 [facility] Comment on above: Performed By: #### C BC, ANEU, CMP, GFR, ADIFF #### [place] [id number] WBC 7.3 10 3/mcL Normal 4.5-10.8 [facility] Comment on above: Performed By: #### C BC, ANEU, CMP, GFR, ADIFF #### [place] [id number] CMPon 12-14-2024 Albumin Level 4.0 G/dL Normal 3.2-4.8 [facility] Comment on above: Performed By: #### C BC, ANEU, CMP, GFR, ADIFF #### [place] [address] Albumin/Globulin [Mass ratio] 1.2 {ratio} Normal 0.9-1.6 [facility] Comment on above: Performed By: #### C BC, ANEU, CMP, GFR, ADIFF #### [place] [address] ALP [Catalytic activity/Vol] 96 U/L Normal 38-126 [facility] Comment on above: Performed By: #### C BC, ANEU, CMP, GFR, ADIFF #### [place] [address] ALT [Catalytic activity/Vol] 18 U/L Normal 12-55 [facility] Comment on above: Performed By: #### C BC, ANEU, CMP, GFR, ADIFF #### [place] [address] AST [Catalytic activity/Vol] 23 U/L Normal 8-34 [facility] Comment on above: Performed By: #### C BC, ANEU, CMP, GFR, ADIFF #### [place] [address] Bili Total 0.60 mg/dL Normal 0.20-1.20 [facility] Comment on above: Result Comment: Use of this assay is not recommended for patients undergoing treatment with eltrombopag due to the potential for falsely elevated results. Performed By: #### C BC, ANEU, CMP, GFR, ADIFF #### [place] [id number] BUN/Creatinine Ratio 12.0 ratio Normal 10.0-22.0 [facility] Comment on above: Performed By: #### C BC, ANEU, CMP, GFR, ADIFF #### [address] [address] Calcium [Mass/Vol] 9.3 mg/dL Normal 8.7-10.4 [facility] MAIN Comment on above: Performed By: #### C BC, ANEU, CMP, GFR, ADIFF #### [place] [id number] Chloride [Moles/Vol] 103 mmol/L Normal 98-110 [facility] Comment on above: Performed By: #### C BC, ANEU, CMP, GFR, ADIFF #### [place] [id number] CO2 [Moles/Vol] 31 mmol/L Normal 22-32 [facility] Comment on above: Performed By: #### C BC, ANEU, CMP, GFR, ADIFF #### [place] [id number] Creatinine [Mass/Vol] 0.92 mg/dL Normal 0.60-1.40 [facility] Comment on above: Result Comment: Test ing performed on Connolly analyzer using enzymatic creatinine methodology. Performed By: #### C BC, ANEU, CMP, GFR, ADIFF #### [place] [id number] Electrolyte Balance 5.0 mEq/L Normal 4.0-15.0 [facility] MAIN Comment on above: Performed By: #### C BC, ANEU, CMP, GFR, ADIFF #### [place] [id number] Globulin 3.4 G/dL Normal 2.5-4.2 [facility] Comment on above: Performed By: #### C BC, ANEU, CMP, GFR, ADIFF #### [place] [id number] Glucose [Mass/Vol] 99 mg/dL Normal 82-115 [facility] MAIN Comment on above: Performed By: #### C BC, ANEU, CMP, GFR, ADIFF #### [place] [address] [place] [address] Potassium [Moles/Vol] 4.0 mmol/L Normal 3.5-5.0 [facility] Comment on above: Performed By: #### C BC, ANEU, CMP, GFR, ADIFF #### [place] [address] [place] [address] Sodium [Moles/Vol] 139 mmol/L Normal 136-145 [facility] MA[facility] Comment on above: Performed By: #### C BC, ANEU, CMP, GFR, ADIFF #### [address] [address] Total Protein 7.4 G/dL Normal 5.7-8.2 [facility] Comment on above: Performed By: #### C BC, ANEU, CMP, GFR, ADIFF #### [address] [address] Urea nitrogen [Mass/Vol] 11.0 mg/dL Normal 8.0-22.0 [facility] Comment on above: Performed By: #### C BC, ANEU, CMP, GFR, ADIFF #### [address] [address] Cardiology Visit Reporton Cardiology Visit Report [facility] [address] [place] [address] OFFICE VISIT Date of Service: 12/13/24 MR#: [id number] Acct: [id number] Name: CHRISTOPHER SILVA Rep #: [id number] : 1955 Provider: TRUDY farfan Age/Sex: 69/M Location: [facility] Status: Signed HPI HPI History of Present Illness Details: Christopher Silva is a 69 year old man who presents to the office today for a cardiovascular follow-up visit. Previously, he had presented to [facility] in August of 2021 with dizziness. He [...] home, and instructed to follow with his computer terminal operator. From a cardiac standpoint, the patient is [...] (%) 94 Intake Visit Reasons: SURGICAL CLEARANCE Search Engine Optimizer Required: No Is patient in pain?: No [...] DAILY 12/03/22 12/13/24 H istory release vitamin [id number] B1 5.5 mg-12.5 1 ml PO BID [...] lower eyel (more content not included)... Normal [facility] Arterial study reportOrdered By: Akbar Louis on 11-14-2024 Noninvasive arteriosclerosis study report [facility] [address] [place] [address] Lower Ext Art Exam w/o Exercis 11/14/24 1442 MR#: [id number] Acct: [id number] Name: CHRISTOPHER SILVA Rep #:[id number] : [...] MD CC: HELEN Nash; Dr. Aury Schneider, ~ Date Dictated: 11/14/24 144 Date Transcribed: 11/14/241742 Leather Coverer: Signed [facility] Work Phone: Lower Ext Art Exam w/o Exerc betty 11-14-2024 Lower Ext Art Exam w/o Exercis [facility] [address] [place] [address] Lower Ext Art Exam w/o Exercis 11/14/241441 MR#: [id number] Acct: [id number] Name: CHRISTOPHER SILVA Rep #: [id number] : 1955 69 From: Akbar Louis MD Attending Dr: HELEN Nash Status: REG CLI Ordering Dr: Ely Monsalve Date: 11/14/24 Location: [facility] Sex: M C Admitted: Reason For [...] Date Dictated: 11/14/24 1442 Date Transcribed: 11/14/241742 Leather Coverer: Signed Normal [facility] MR/BMS.Tamika 11-02-2024 MR/DUSTY.SERGE [facility] [address] [place] [address] OFFICE VISIT Date of Service: 11/02/24 MR#: [id number] Acct: [id number] Name: CHRISTOPHER SILVA Rep #: [id number] : 1955 Provider: HELEN Nash Age/Sex: 69/M Location: [facility] Status: Signed Intake Vital Signs 03/18/24 07:44 [...] LUE and LLE coldness, 6 M FU Search Engine Optimizer Required: No Is patient in pain?: Yes [...] tablet 40 mg PO DAILY blood pressure 123 07/3103/25/24 History ergocalciferol (vitamin D2) 1,250 50,000 unit PO Q7D supplement 01/3003/25/24 History mcg (50,000 unit) capsule pregabalin 100 mg capsule 100 mg PO TID pain 01/25/21 History sildenafil 100 mg tablet 100 mg PO DAILY PRN Erectile 11/0403/25/24 History Dysfunction aspirin 81 mg tablet,delayed 81 mg PO DAILY 12/03/22 03/25/24 H istory release vitamin N79-lsrdmto B1 5.5 mg-12.5 1 ml PO BID [...] employed [employer] (more content not included)... Normal [facility] TFTESTon 08-17-2024 Free Testost Direct 31.5 pg/mL High 6.6-18.1 [facility] Comment on above: Result Comment: Perf ormed At: [facility] [address] [id number] Tien Fabian MD Ph:[phone] Performed At: [facility] [address] [id number] Nicolas Yanez PhD Ph:[phone] Performed By: #### C MP, CBC, ADIFF, GFR, LIPID, FT4, PSA, [id number], TSH, ANEU #### [place] [id number] Testosterone Lvl 1492 ng/dL High 264-916 [facility] Comment on above: Result Comment: Adul t male reference interval is based on a population of healthy nonobese males (BMI <30) between 19 and 39 years old. Jonathan et.al. JCEM 2017,102;5526-0204. PMID: [id number]. Performed By: #### C MP, CBC, ADIFF, GFR, LIPID, FT4, PSA, [id number], TSH, ANEU #### [address] [address] PSAon 08-13-2024 Prostate Specific Antigen 0.18 ng/mL Normal 0.00-4.00 [facility] Comment on above: Performed By: #### C MP, CBC, ADIFF, GFR, LIPID, FT4, PSA, [id number], TSH, ANEU #### [address] [address] .Auto Diffon 08-12-2024 Basophil, Absolute 0.1 10 3/mcL Normal 0.0-0.2 [facility] Comment on above: Performed By: #### C MP, CBC, ADIFF, GFR, LIPID, FT4, PSA, [id number], TSH, ANEU #### [address] [address] Basophils/100 WBC (Bld) 1.4 % Normal 0.0-2.5 [facility] Comment on above: Performed By: #### C MP, CBC, ADIFF, GFR, LIPID, FT4, PSA, [id number], TSH, ANEU #### [address] [address] Eosinophil, Absolute 0.2 10 3/mcL Normal 0.0-0.7 [facility] Comment on above: Performed By: #### C MP, CBC, ADIFF, GFR, LIPID, FT4, PSA, [id number], TSH, ANEU #### [address] [address] Eosinophils/100 WBC (Bld) 3.4 % Normal 0.0-7.0 [facility] Comment on above: Performed By: #### C MP, CBC, ADIFF, GFR, LIPID, FT4, PSA, [id number], TSH, ANEU #### [address] [address] Lymphocyte, Absolute 1.3 10 3/mcL Normal 0.9-4.3 [facility] Comment on above: Performed By: #### C MP, CBC, ADIFF, GFR, LIPID, FT4, PSA, [id number], TSH, ANEU #### [address] [address] Lymphocytes/100 WBC (Bld) 22.0 % Normal 20.0-40.0 [facility] Comment on above: Performed By: #### C MP, CBC, ADIFF, GFR, LIPID, FT4, PSA, [id number], TSH, ANEU #### [address] [address] Monocyte, Absolute 0.4 10 3/mcL Normal 0.1-1.4 [facility] Comment on above: Performed By: #### C MP, CBC, ADIFF, GFR, LIPID, FT4, PSA, [id number], TSH, ANEU #### [address] [address] Monocytes/100 WBC (Bld) 6.8 % Normal 2.0-13.0 [facility] Comment on above: Performed By: #### C MP, CBC, ADIFF, GFR, LIPID, FT4, PSA, [id number], TSH, ANEU #### [address] [address] Neutrophils/100 WBC (Bld) 66.4 % Normal 50.0-75.0 [facility] Comment on above: Performed By: #### C MP, CBC, ADIFF, GFR, LIPID, FT4, PSA, [id number], TSH, ANEU #### [address] [address] .GFRon 08-12-2024 GFR Non- 82 ml/min/1.73sqm Normal [facility] Comment on above: Result Comment: GFR Population [...] MP, CBC, ADIFF, GFR, LIPID, FT4, PSA, [id number], TSH, ANEU #### [address] [address] GFR 100 ml/min/1.73sqm Normal [facility] Comment on above: Result Comment: GFR Population [...] MP, CBC, ADIFF, GFR, LIPID, FT4, PSA, [id number], TSH, ANEU #### [place] [address] .NEUABSon 08-12-2024 Neutrophil, Absolute 3.8 10 3/mcL Normal 2.3-8.1 [facility] Comment on above: Performed By: #### C MP, CBC, ADIFF, GFR, LIPID, FT4, PSA, [id number], TSH, ANEU #### [place] [address] CBCon 08-12-2024 Erythrocyte distribution width (RBC) [Ratio] 14.5 % Normal 11.5-15.5 [facility] Comment on above: Performed By: #### C MP, CBC, ADIFF, GFR, LIPID, FT4, PSA, [id number], TSH, ANEU #### [place] [address] Hematocrit (Bld) [Volume fraction] 45.9 % Normal 40.0-52.0 [facility] Comment on above: Performed By: #### C MP, CBC, ADIFF, GFR, LIPID, FT4, PSA, [id number], TSH, ANEU #### [place] [address] Hgb 15.5 G/dL Normal 13.0-17.5 [facility] Comment on above: Performed By: #### C MP, CBC, ADIFF, GFR, LIPID, FT4, PSA, [id number], TSH, ANEU #### [address] [address] MCH (RBC) [Entitic mass] 30.8 pg Normal 27.0-33.0 [facility] Comment on above: Performed By: #### C MP, CBC, ADIFF, GFR, LIPID, FT4, PSA, [id number], TSH, ANEU #### [place] [address] MCHC 33.8 G/dL Normal 32.0-36.0 [facility] Comment on above: Performed By: #### C MP, CBC, ADIFF, GFR, LIPID, FT4, PSA, [id number], TSH, ANEU #### [place] [address] MCV (RBC) [Entitic vol] 91.4 fL Normal 81.0-100.0 [facility] Comment on above: Performed By: #### C MP, CBC, ADIFF, GFR, LIPID, FT4, PSA, [id number], TSH, ANEU #### [place] [address] Platelet 286 10 3/mcL Normal 150-450 [facility] Comment on above: Performed By: #### C MP, CBC, ADIFF, GFR, LIPID, FT4, PSA, [id number], TSH, ANEU #### [address] [id number] Platelet mean volume (Bld) [Entitic vol] 9.2 fL Normal 6.4-10.5 [facility] Comment on above: Performed By: #### C MP, CBC, ADIFF, GFR, LIPID, FT4, PSA, [id number], TSH, ANEU #### [place] [address] RBC 5.02 10 6/mcL Normal 4.50-6.00 [facility] Comment on above: Performed By: #### C MP, CBC, ADIFF, GFR, LIPID, FT4, PSA, [id number], TSH, ANEU #### [place] [id number] WBC 5.8 10 3/mcL Normal 4.5-10.8 [facility] Comment on above: Performed By: #### C MP, CBC, ADIFF, GFR, LIPID, FT4, PSA, [id number], TSH, ANEU #### [address] [address] CMPon 08-12-2024 Albumin Level 3.6 G/dL Normal 3.4-4.8 [facility] Comment on above: Performed By: #### C MP, CBC, ADIFF, GFR, LIPID, FT4, PSA, [id number], TSH, ANEU #### [address] [address] Albumin/Globulin [Mass ratio] 1.0 {ratio} Low 1.1-2.5 [facility] Comment on above: Performed By: #### C MP, CBC, ADIFF, GFR, LIPID, FT4, PSA, [id number], TSH, ANEU #### [address] [address] ALP [Catalytic activity/Vol] 111 U/L Normal 40-135 [facility] Comment on above: Performed By: #### C MP, CBC, ADIFF, GFR, LIPID, FT4, PSA, [id number], TSH, ANEU #### [address] [address] ALT [Catalytic activity/Vol] 21 U/L Normal 16-63 [facility] Comment on above: Performed By: #### C MP, CBC, ADIFF, GFR, LIPID, FT4, PSA, [id number], TSH, ANEU #### [address] [address] AST [Catalytic activity/Vol] 28 U/L Normal 10-40 [facility] Comment on above: Performed By: #### C MP, CBC, ADIFF, GFR, LIPID, FT4, PSA, [id number], TSH, ANEU #### [address] [address] Bili Total 0.4 mg/dL Normal 0.2-1.0 [facility] Comment on above: Result Comment: Use of this assay is not recommended for patients undergoing treatment with eltrombopag due to the potential for falsely elevated results. Performed By: #### C MP, CBC, ADIFF, GFR, LIPID, FT4, PSA, [id number], TSH, ANEU #### [place] [address] BUN/Creatinine Ratio 13 ratio Normal 7-27 [facility] Comment on above: Performed By: #### C MP, CBC, ADIFF, GFR, LIPID, FT4, PSA, [id number], TSH, ANEU #### [place] [address] Calcium [Mass/Vol] 8.7 mg/dL Normal 8.4-10.2 [facility] Comment on above: Performed By: #### C MP, CBC, ADIFF, GFR, LIPID, FT4, PSA, [id number], TSH, ANEU #### [place] [address] Chloride [Moles/Vol] 102 mmol/L Normal 98-107 [facility] Comment on above: Performed By: #### C MP, CBC, ADIFF, GFR, LIPID, FT4, PSA, [id number], TSH, ANEU #### [place] [address] CO2 [Moles/Vol] 30 mmol/L Normal 23-31 [facility] Comment on above: Performed By: #### C MP, CBC, ADIFF, GFR, LIPID, FT4, PSA, [id number], TSH, ANEU #### [place] [address] Creatinine [Mass/Vol] 0.91 mg/dL Normal 0.70-1.30 [facility] Comment on above: Result Comment: Test ing performed on Siemens Dimension EXL analyzer using a modified kinetic Tommie technique. Performed By: #### C MP, CBC, ADIFF, GFR, LIPID, FT4, PSA, [id number], TSH, ANEU #### [place] [address] Electrolyte Balance 6.0 mEq/L Normal 4.0-15.0 [facility] Comment on above: Performed By: #### C MP, CBC, ADIFF, GFR, LIPID, FT4, PSA, [id number], TSH, ANEU #### [address] [address] Globulin 3.6 G/dL Normal [facility] Comment on above: Performed By: #### C MP, CBC, ADIFF, GFR, LIPID, FT4, PSA, [id number], TSH, ANEU #### [address] [address] Glucose [Mass/Vol] 100 mg/dL Normal 83-110 [facility] Comment on above: Performed By: #### C MP, CBC, ADIFF, GFR, LIPID, FT4, PSA, [id number], TSH, ANEU #### [address] [address] Potassium [Moles/Vol] 4.5 mmol/L Normal 3.5-5.1 [facility] Comment on above: Performed By: #### C MP, CBC, ADIFF, GFR, LIPID, FT4, PSA, [id number], TSH, ANEU #### [address] [address] Sodium [Moles/Vol] 138 mmol/L Normal 136-145 [facility] Comment on above: Performed By: #### C MP, CBC, ADIFF, GFR, LIPID, FT4, PSA, [id number], TSH, ANEU #### [address] [address] Total Protein 7.2 G/dL Normal 6.4-8.2 [facility] Comment on above: Performed By: #### C MP, CBC, ADIFF, GFR, LIPID, FT4, PSA, [id number], TSH, ANEU #### [address] [address] Urea nitrogen [Mass/Vol] 12 mg/dL Normal 7-18 [facility] Comment on above: Performed By: #### C MP, CBC, ADIFF, GFR, LIPID, FT4, PSA, [id number], TSH, ANEU #### [address] [address] FT4on 08-12-2024 Free T4 [Mass/Vol] 1.00 ng/dL Normal 0.76-1.46 [facility] Comment on above: Performed By: #### C MP, CBC, ADIFF, GFR, LIPID, FT4, PSA, [id number], TSH, ANEU #### [address] [address] LIPIDon 08-12-2024 Cholesterol [Mass/Vol] 194 mg/dL Normal 0-200 [facility] Comment on above: Result Comment: Chol esterol Reference Interval: Less than 200 Desirable 200-239 Borderline high risk 240 and above High risk Performed By: #### C MP, CBC, ADIFF, GFR, LIPID, FT4, PSA, [id number], TSH, ANEU #### [address] [address] Cholesterol in HDL [Mass/Vol] 32 mg/dL Low 40-60 [facility] Comment on above: Performed By: #### C MP, CBC, ADIFF, GFR, LIPID, FT4, PSA, [id number], TSH, ANEU #### [address] [address] Cholesterol in LDL [Mass/Vol] 149 mg/dL High 0-130 [facility] Comment on above: Performed By: #### C MP, CBC, ADIFF, GFR, LIPID, FT4, PSA, [id number], TSH, ANEU #### [address] [address] Triglyceride [Mass/Vol] 63 mg/dL Normal 0-150 [facility] Comment on above: Result Comment: Trig lyceride Reference Interval: Less than 150 Normal 150-199 Borderline high risk 200-499 High risk 500 or higher Very high risk Performed By: #### C MP, CBC, ADIFF, GFR, LIPID, FT4, PSA, [id number], TSH, ANEU #### [address] [address] TSHon 08-12-2024 TSH Qn 1.27 m[IU]/L Normal 0.36-3.74 [facility] Comment on above: Performed By: #### C MP, CBC, ADIFF, GFR, LIPID, FT4, PSA, [id number], TSH, ANEU #### [facility] [address], [place] [address] Urgent Care Visit Reporton 0 07-25-2024 Urgent Care Visit Report [facility] [address], [address] [place] [address] OFFICE VISIT Date of Service: 07/25/24 MR#: [id number] Acct: [id number] Name: CHRISTOPHER SILVA Rep #: [id number] : 1955 Provider: HELEN Shipman Age/Sex: 68/M Location: [facility] Status: Signed Intake Vital Signs 03/18/24 07:44 07/25/24 12:24 Height 5 ft 9 in Position Sitting Respiration 17 Pulse 86 Pulse Source NIBP Temp 98.2 F Temp Source Oral Pulse Oximetry (%) 95 Oxygen Delivery Method room air Intake Visit Reasons: COUGH/FEVER Chief Complaint: cough, fever, fatigue Search Engine Optimizer Required: No Is patient in pain?: No [...] PO DAILY 12/03/22 03/25/24 History release vitamin [id number] B1 5.5 mg-12.5 1 ml PO BID [...] rattle in lungs x 2 days. denies TO, BA. declines viral testing. 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 Normal [facility] Abdomen Completeon Abdomen Complete [facility] [address] [place] [id number] Abdomen Complete MR#: [id number] Acct: [id number] Name: CHRISTOPHER SILVA Rep #: [id number] : 1955 M 68 From: Bill Vee DO PCP: Dr. Aury Schneider, Status: REG CLI Study: Abdomen Complete Date of Exam: 06/17/24 Exam# [id number] Ordering Dr: Aury Schneider DO :[id number] INDICATION: LIVER MASS EXAMINATION: Ultrasound US Abdomen [...] 20:05 EST Reading Location ID and State: [address] [place] [address] Tel [phone], Service support , CC: Dr. Aury Schneider DO Leather Coverer: Signed [facility] Final Surgical Pathology Rep [facility] 05-24-2024 Final Surgical Pathology Report . Pathology Reports Accession: Collected Date/Time: Received Date/Time: Pathologist: [id number] 05/23/2024 09:37 EST 05/23/2024 14:00 EST MD GE WHITFIELD Final Surgical Pathology Report DIAGNOSIS: PYLORIC BIOPSY: - MILD CHRONIC GASTRITIS - NEGATIVE FOR H. PYLORI CLINICAL INFORMATION: Procedure: UPPER ESOPHAGOGASTRODUODENOSCOPY WITH BX Preoperative diagnosis: GASTROESOPHAGEAL REFLUX DISEASE Postoperative diagnosis: GASTROESOPHAGEAL REFLUX DISEASE SPECIMEN: A PYLORIC FOLDS BIOPSY GROSS DESCRIPTION: All parts labelled with patient name and [id number] Received in formalin labeled pyloric fold biopsy are 3 holguin-pink tissue fragments measuring less than 0.1 to 0.3 cm greatest dimension. Smallest fragment may not survive processing. TS-1 Janae Domínguez, Grossing Guard Supervisor/ Dr. Eleuterio Miramontes, Pathologist Performed by Janae Domínguez MICROSCOPIC DESCRIPTION: The microscopic examination is performed, except in the case of Gross Only. Electronically Signed by Pathology Report verified by [facility] GE WHITFIELD MD Sign out Date: 05/24/2024 09:37 Performing Lab: [facility], [address] [place] [address] Pathology Dept Disclaimer If ancillary studies were utilized, the following Laboratory Developed Test (LDT) disclaimer will apply: Under CLIA requirements, [facility] Pathology Laboratory is qualified to perform high complexity testing. For all ancillary stains, positive and negative controls stain appropriately. Performance characteristics of immunohistochemical and chromogenic in-situ hybridization tests have been determined by [facility] Pathology Laboratory. These tests are used for clinical purposes, They should not be regarded as investigational or for research. Normal [facility] MR/BMS.Tamika 04-22-2024 MR/BMS.SERGE [facility] Vascular Surgery [address] [place] [address] OFFICE VISIT Date of Service: 04/22/24 MR#: [id number] Acct: [id number] Name: CHRISTOPHER SILVA Rep #: [id number] : 1955 Provider: HELEN Nash Age/Sex: 68/M Location: [facility] Status: Signed Intake Vital Signs 03/18/24 [...] Yes disequili (more content not included)... Normal [facility] 04-08-2024 [facility] Telephone (NEAGCLM) CHRISTOPHER SILVA ([id number]) 1955 M Date Time Provider Department 04/08/24 TAYLOR STEEN I NEAGC During your visit today, we recorded the following information about you: Donovan Wray, RN 04/08/2024 11:10 AM Signed I contacted the patient and reminded him to bring disc with MRI to visit on Thursday with Dr. Go. Also requested that he went to [facility] facility to obtain lumbar x-rays prior to visit. He agreed to go to [facility] close by to his house. He was appreciative of the call. 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 Aury Schneider, DO Status: REG RCR Study: Foot min 3 Views Date of Exam: 04/06/24 Exam# [id number] Ordering Dr: Richie Nuno DPM :[id number] STUDY: X-RAY - LEFT FOOT CLINICAL: Male, [...] Myers MD at 14:21 EDT , CC: DPDuglas Nuno; Dr. Aury Schneider, Leather Coverer: Signed Normal [facility] 03-30-2024 [facility] CRHISTOPHER SILVA ([id number]) 1955 M Date Time Provider Department 03/30/24 PAULA YIN NEAGCLM During your visit today, we recorded the following information about you: Shraddha Donaldson 03/30/2024 10:46 AM Signed Referral from [facility] for Neurosurgery, for lumbosacral stenosis , [...] Encounter Status:Closed by SHRADDHA DONALDSON on 03/30/24 Normal [facility] TFTESTon 03-12-2024 Free Testost Direct 1.6 pg/mL Low 6.6-18.1 [facility] ([place]) Comment on above: Result Comment: Perf ormed At: [facility] [address] [id number] Tien Fabian MD Ph:[phone] Performed At: [facility] [address] [id number] Nicolas Yanez PhD Ph:[phone] Performed By: #### T SH, ADIFF, ANEU, FT4, 039621, CBC, GFR, LIPID, CMP #### [address] [address] Testosterone Lvl 23 ng/dL Low 264-906 [facility] ([place]) Comment on above: Result Comment: Adul t male reference interval is based on a population of healthy nonobese males (BMI <30) between 19 and 39 years old. Jonathan et.al. JCEM 2017,102;1087-8262. PMID: [id number]. Performed By: #### T SH, ADIFF, ANEU, FT4, 208841, CBC, GFR, LIPID, CMP #### [address] [address] .Auto Diffon 03-08-2024 Basophil, Absolute 0.1 10 3/mcL Normal 0.0-0.3 [facility] ([place]) Comment on above: Performed By: #### T SH, ADIFF, ANEU, FT4, 195621, CBC, GFR, LIPID, CMP #### [address] [address] Basophils/100 WBC (Bld) 1.2 % Normal 0.0-2.5 [facility] ([place]) Comment on above: Performed By: #### T SH, ADIFF, ANEU, FT4, 887704, CBC, GFR, LIPID, CMP #### [address] [address] Eosinophil, Absolute 0.2 10 3/mcL Normal 0.0-0.7 [facility] ([place]) Comment on above: Performed By: #### T SH, ADIFF, ANEU, FT4, 394432, CBC, GFR, LIPID, CMP #### [address] [address] Eosinophils/100 WBC (Bld) 4.1 % Normal 0.0-6.0 [facility] ([place]) Comment on above: Performed By: #### T SH, ADIFF, ANEU, FT4, 709647, CBC, GFR, LIPID, CMP #### [address] [address] Lymphocyte, Absolute 1.3 10 3/mcL Normal 0.9-4.3 [facility] ([place]) Comment on above: Performed By: #### T SH, ADIFF, ANEU, FT4, 326051, CBC, GFR, LIPID, CMP #### [address] [address] Lymphocytes/100 WBC (Bld) 22.5 % Normal 20.0-40.0 [facility] ([place]) Comment on above: Performed By: #### T SH, ADIFF, ANEU, FT4, 032660, CBC, GFR, LIPID, CMP #### [address] [address] Monocyte, Absolute 0.4 10 3/mcL Normal 0.1-1.4 [facility] ([place]) Comment on above: Performed By: #### T SH, ADIFF, ANEU, FT4, 154942, CBC, GFR, LIPID, CMP #### [address] [address] Monocytes/100 WBC (Bld) 6.2 % Normal 2.0-13.0 [facility] ([place]) Comment on above: Performed By: #### T SH, ADIFF, ANEU, FT4, 819571, CBC, GFR, LIPID, CMP #### [address] [address] Neutrophils/100 WBC (Bld) 66.0 % Normal 50.0-75.0 [facility] ([place]) Comment on above: Performed By: #### T SH, ADIFF, ANEU, FT4, 704318, CBC, GFR, LIPID, CMP #### [address] [address] .GFRon 03-08-2024 GFR Non- >60 Normal [facility] ([place]) Comment on above: Result Comment: GFR Population [...] By: #### T SH, ADIFF, ANEU, FT4, 327991, CBC, GFR, LIPID, CMP #### [address] [address] GFR >60 Normal [facility] ([place]) Comment on above: Result Comment: GFR Population [...] By: #### T SH, ADIFF, ANEU, FT4, 717522, CBC, GFR, LIPID, CMP #### [place] [address] .NEUABSon 03-08-2024 Neutrophil, Absolute 3.8 10 3/mcL Normal 2.3-8.1 [facility] ([place]) Comment on above: Performed By: #### T SH, ADIFF, ANEU, FT4, 255771, CBC, GFR, LIPID, CMP #### [place] [address] CBCon 03-08-2024 Erythrocyte distribution width (RBC) [Ratio] 13.6 % Normal 11.5-15.5 [facility] ([place]) Comment on above: Performed By: #### T SH, ADIFF, ANEU, FT4, 452230, CBC, GFR, LIPID, CMP #### [place] [address] Hematocrit (Bld) [Volume fraction] 37.5 % Low 40.0-52.0 [facility] ([place]) Comment on above: Performed By: #### T SH, ADIFF, ANEU, FT4, 092398, CBC, GFR, LIPID, CMP #### [place] [address] Hgb 12.9 G/dL Low 13.0-17.5 [facility] ([place]) Comment on above: Performed By: #### T SH, ADIFF, ANEU, FT4, 836528, CBC, GFR, LIPID, CMP #### [place] [address] MCH (RBC) [Entitic mass] 33.0 pg Normal 27.0-33.0 [facility] ([place]) Comment on above: Performed By: #### T SH, ADIFF, ANEU, FT4, 979219, CBC, GFR, LIPID, CMP #### [place] [address] MCHC 34.5 G/dL Normal 32.0-36.0 [facility] ([place]) Comment on above: Performed By: #### T SH, ADIFF, ANEU, FT4, 586698, CBC, GFR, LIPID, CMP #### [place] [address] MCV (RBC) [Entitic vol] 95.7 fL Normal 81.0-100.0 [facility] ([place]) Comment on above: Performed By: #### T SH, ADIFF, ANEU, FT4, 891702, CBC, GFR, LIPID, CMP #### [place] [address] Platelet 243 10 3/mcL Normal 150-450 [facility] ([place]) Comment on above: Performed By: #### T SH, ADIFF, ANEU, FT4, 039255, CBC, GFR, LIPID, CMP #### [place] [address] Platelet mean volume (Bld) [Entitic vol] 9.1 fL Normal 6.4-10.5 [facility] ([place]) Comment on above: Performed By: #### T SH, ADIFF, ANEU, FT4, 990753, CBC, GFR, LIPID, CMP #### [place] [address] RBC 3.92 10 6/mcL Low 4.50-6.00 [facility] ([place]) Comment on above: Performed By: #### T SH, ADIFF, ANEU, FT4, 263288, CBC, GFR, LIPID, CMP #### [place] [id number] WBC 5.8 10 3/mcL Normal 4.5-10.8 [facility] ([place]) Comment on above: Performed By: #### T SH, ADIFF, ANEU, FT4, 717542, CBC, GFR, LIPID, CMP #### [place] [id number] CMPon 03-08-2024 Albumin Level 3.3 G/dL Normal 3.2-4.8 [facility] ([place]) Comment on above: Performed By: #### T SH, ADIFF, ANEU, FT4, 015114, CBC, GFR, LIPID, CMP #### [place] [address] Albumin/Globulin [Mass ratio] 1.0 {ratio} Normal 0.9-1.6 [facility] ([place]) Comment on above: Performed By: #### T SH, ADIFF, ANEU, FT4, 402489, CBC, GFR, LIPID, CMP #### [place] [id number] ALP [Catalytic activity/Vol] 98 U/L Normal 38-126 [facility] ([place]) Comment on above: Performed By: #### T SH, ADIFF, ANEU, FT4, 689068, CBC, GFR, LIPID, CMP #### [place] [address] ALT [Catalytic activity/Vol] 14 U/L Normal 12-55 [facility] ([place]) Comment on above: Performed By: #### T SH, ADIFF, ANEU, FT4, 485887, CBC, GFR, LIPID, CMP #### [place] [id number] AST [Catalytic activity/Vol] 17 U/L Normal 8-34 [facility] ([place]) Comment on above: Performed By: #### T SH, ADIFF, ANEU, FT4, 286303, CBC, GFR, LIPID, CMP #### [place] [address] Bili Total 0.50 mg/dL Normal 0.20-1.20 [facility] ([place]) Comment on above: Result Comment: Use of this assay is not recommended for patients undergoing treatment with eltrombopag due to the potential for falsely elevated results. Performed By: #### T SH, ADIFF, ANEU, FT4, 778801, CBC, GFR, LIPID, CMP #### [place] [address] BUN/Creatinine Ratio 24.1 ratio High 10.0-22.0 [facility] ([place]) Comment on above: Performed By: #### T SH, ADIFF, ANEU, FT4, 075156, CBC, GFR, LIPID, CMP #### [place] [id number] Calcium [Mass/Vol] 9.2 mg/dL Normal 8.7-10.4 [facility] ([place]) Comment on above: Performed By: #### T SH, ADIFF, ANEU, FT4, 708744, CBC, GFR, LIPID, CMP #### [address] [address] Chloride [Moles/Vol] 106 mmol/L Normal 98-110 [facility] ([place]) Comment on above: Performed By: #### T SH, ADIFF, ANEU, FT4, 166758, CBC, GFR, LIPID, CMP #### [address] [address] CO2 [Moles/Vol] 32 mmol/L Normal 22-32 [facility] ([place]) Comment on above: Performed By: #### T SH, ADIFF, ANEU, FT4, 567102, CBC, GFR, LIPID, CMP #### [place] [address] Creatinine [Mass/Vol] 0.79 mg/dL Normal 0.60-1.40 [facility] ([place]) Comment on above: Performed By: #### T SH, ADIFF, ANEU, FT4, 040258, CBC, GFR, LIPID, CMP #### [place] [address] Electrolyte Balance 4.0 mEq/L Normal 4.0-15.0 [facility] ([place]) Comment on above: Performed By: #### T SH, ADIFF, ANEU, FT4, 078930, CBC, GFR, LIPID, CMP #### [address] [address] Globulin 3.3 G/dL Normal 1.5-3.8 [facility] ([place]) Comment on above: Performed By: #### T SH, ADIFF, ANEU, FT4, 645439, CBC, GFR, LIPID, CMP #### [place] [id number] Glucose [Mass/Vol] 103 mg/dL Normal 82-115 [facility] ([place]) Comment on above: Performed By: #### T SH, ADIFF, ANEU, FT4, 610021, CBC, GFR, LIPID, CMP #### [address] [address] Potassium [Moles/Vol] 4.2 mmol/L Normal 3.5-5.0 [facility] ([place]) Comment on above: Performed By: #### T SH, ADIFF, ANEU, FT4, 270849, CBC, GFR, LIPID, CMP #### [address] [address] Sodium [Moles/Vol] 142 mmol/L Normal 136-145 [facility] ([place]) Comment on above: Performed By: #### T SH, ADIFF, ANEU, FT4, 021335, CBC, GFR, LIPID, CMP #### [address] [address] Total Protein 6.6 G/dL Normal 5.7-8.2 [facility] ([place]) Comment on above: Result Comment: No te - New Reference Range in effect 20 Performed By: #### T SH, ADIFF, ANEU, FT4, 633375, CBC, GFR, LIPID, CMP #### [place] [address] Urea nitrogen [Mass/Vol] 19.0 mg/dL Normal 8.0-22.0 [facility] ([place]) Comment on above: Performed By: #### T SH, ADIFF, ANEU, FT4, 116768, CBC, GFR, LIPID, CMP #### [address] [address] FT4on 03-08-2024 Free T4 [Mass/Vol] 1.12 ng/dL Normal 0.89-1.76 [facility] ([place]) Comment on above: Result Comment: No te - New Reference Range in effect 20 Performed By: #### T SH, ADIFF, ANEU, FT4, 421371, CBC, GFR, LIPID, CMP #### [address] [address] LIPIDon 03-08-2024 Cholesterol [Mass/Vol] 205 mg/dL High 50-199 [facility] ([place]) Comment on above: Result Comment: Chol esterol Reference Interval: Less than 200 Desirable 200-239 Borderline high risk 240 and above High risk Performed By: #### T SH, ADIFF, ANEU, FT4, 419247, CBC, GFR, LIPID, CMP #### [address] [address] Cholesterol in HDL [Mass/Vol] 35 mg/dL Low 40-59 [facility] ([place]) Comment on above: Performed By: #### T SH, ADIFF, ANEU, FT4, 476363, CBC, GFR, LIPID, CMP #### [address] [address] Cholesterol in LDL [Mass/Vol] 144 mg/dL High 0-129 [facility] ([place]) Comment on above: Performed By: #### T SH, ADIFF, ANEU, FT4, 308056, CBC, GFR, LIPID, CMP #### [address] [address] Triglyceride [Mass/Vol] 129 mg/dL Normal 3-149 [facility] ([place]) Comment on above: Performed By: #### T SH, ADIFF, ANEU, FT4, 560990, CBC, GFR, LIPID, CMP #### [address] [address] TSHon 03-08-2024 TSH 1.499 mIU/mL Normal 0.550-4.780 [facility] ([place]) Comment on above: Result Comment: No te - New Reference Range in effect 20 Performed By: #### T SH, ADIFF, ANEU, FT4, 803709, CBC, GFR, LIPID, CMP #### [address] [address] No Panel InformationOrdered By: Jose Trinh on 09-11-2023 Troponin I High Sensitivity 180 pg/mL 3.0-78.0 [facility] Comment on above: Critical Result(s) C alled at: 02:08:51 09/11/2023 by: Shana Sullivan to Sink. Results read back by same. Please Note: New Test Units and Gender Specific Reference Ranges. For more information see Policy Stat Procedure [place] High Sensitivity Troponin (TNIH) and attachments. Absolute lymphocyte countOrd ered By: Jose Trinh on 09-10-2023 Lymphocytes Auto (Unsp spec) [#/Vol] 1.97 10*3/uL 0.83-4.51 [facility] Activated partial thrombopla stin time (aPTT) in platelet poor plasma by coagulation aOrdered By: Jose Trinh on 09-10-2023 aPTT Coag (PPP) [Time] 40.7 s 24.1-36.2 [facility] Automated lymphocyte count a s percentage of total leukocytesOrdered By: Jose Trinh on 09-10-2023 Lymphocytes/100 WBC Auto (Unsp spec) 23.6 % 19-41 [facility] Basophil percentageOrdered B y: Jose Trinh on 09-10-2023 Basophils/100 WBC (Bld) 1.6 % 0-1 [facility] Bilirubin [Mass/Vol] 0.70 mg/dL 0.20-1.00 [facility] Comment on above: For patients on eltr ombopag therapy, use of Dimension [place] TBIL is not recommended. Chloride [Moles/Vol] 106 mmol/L 98-107 [facility] Eosinophils/100 WBC (Bld) 2.8 % 0-5 [facility] Glucose [Mass/Vol] 85 mg/dL 74-106 [facility] Hemoglobin (Bld) [Mass/Vol] 17.0 g/dL 13.0-16.5 [facility] Monocytes/100 WBC (Bld) 6.2 % 0-10 [facility] Neutrophils (Bld) [#/Vol] 5.5 10*3/uL 2.0-7.7 [facility] Neutrophils/100 WBC (Bld) 65.3 % 47-70 [facility] Potassium [Moles/Vol] 4.2 mmol/L 3.5-5.1 [facility] Protein [Mass/Vol] 7.7 g/dL 6.4-8.2 [facility] Sodium [Moles/Vol] 141 mmol/L 136-145 [facility] WBC (Bld) [#/Vol] 8.4 10*3/uL 4.4-11.0 [facility] Determination of erythrocyte mean corpuscular volume (MCV)Ordered By: Jose Trinh on 09-10-2023 MCV (RBC) [Entitic vol] 92.3 fL 80-94 [facility] Direct bilirubinOrdered By: Jose Trinh on 09-10-2023 Bilirubin.direct [Mass/Vol] 0.15 mg/dL 0.00-0.30 [facility] Erythrocyte distribution wid th ratioOrdered By: Jose Trinh on 09-10-2023 Erythrocyte distribution width (RBC) [Ratio] 13.5 % 11.6-14.6 [facility] Erythrocyte distribution wid th standard deviationOrdered By: Jose Trinh on 09-10-2023 Erythrocyte distribution width (RBC) [Entitic vol] 46.1 fL 35.1-43.9 [facility] Hematocrit Auto (Bld) [Volum e fraction]Ordered By: Jose Trinh on 09-10-2023 Hematocrit (Bld) [Volume fraction] 51.8 % 40-54 [facility] Immature granulocytes/100 WB C Auto (Bld)Ordered By: Jose Trinh on 09-10-2023 Immature granulocytes/100 WBC (Bld) 0.500 % 0.0-0.9 [facility] Comment on above: IG% - Immature Granu locytes (promyelocytes, myelocytes and metamyelocytes) > 1% indicates that a LEFT SHIFT is Present. Laboratory - Chemistry and C hemistry - challengeOrdered By: Jose Trinh on 09-10-2023 ALP [Catalytic activity/Vol] 87 U/L 45-117 [facility] ALT [Catalytic activity/Vol] 29 U/L 16-61 [facility] CO2 [Moles/Vol] 31.0 mmol/L 21.0-32.0 [facility] Globulin (S) [Mass/Vol] 3.9 g/dL 2.2-4.2 [facility] Lipase [Catalytic activity/Vol] 23 U/L 13-75 [facility] Comment on above: Please note:LIPASE r evised reference range effective 22. New Lipase methodology. Expected to produce lower values than the previous assay method. NEW Reference Range: 13 - 75 U/L Urea nitrogen/Creatinine [Mass ratio] 25.4 mg/mg 10-20 [facility] Laboratory - CoagulationOrde red By: Jose Trinh on 09-10-2023 INR Coag (Bld) [Relative time] 1.1 {INR} [facility] PT Coag (PPP) [Time] 13.9 s 11.7-14.9 [facility] Laboratory - Hematology and Cell countsOrdered By: Jose Trinh on 09-10-2023 MCH (RBC) [Entitic mass] 30.3 pg 27.0-32.0 [facility] MCHC (RBC) [Mass/Vol] 32.8 g/dL 32-36 [facility] Nucleated RBC/100 WBC (Bld) [Ratio] 0 % 0-5 [facility] Platelet mean volume (Bld) [Entitic vol] 10.5 fL 6.2-12.0 [facility] Platelets (Bld) [#/Vol] 276 10*3/uL 150-450 [facility] No Panel InformationOrdered By: Jose Trinh on 09-10-2023 D-Dimer Quantitative (PE/DVT) 0.85 FEU/ug/m 0.27-0.49 [facility] Comment on above: D-Dimer ELEVATED (>0 .49): Additional studies and clinicalassessments are indicated to conclude diagnosis of:Deep Vein Thrombosis (DVT) or Pulmonary Embolism (PE) Estimated Creatinine Clearance Calc 81.17 ml/min [facility] Estimated GFR (MDRD) Amer 79 mL/min >60 [facility] Comment on above: GFR Calc Estimated GFR (MDRD) Non-Af Amer 65 mL/min >60 [facility] Comment on above: Non- GFR Calc RBC Auto (Bld) [#/Vol]Ordere d By: Jose Trinh on 09-10-2023 RBC (Bld) [#/Vol] 5.61 10*6/uL 4.6-6.2 [facility] Serum or plasma calcium dougie urement (mass/volume)Ordered By: Jose Trinh on 09-10-2023 Calcium [Mass/Vol] 9.3 mg/dL 8.5-10.1 [facility] Serum or plasma creatinine m easurement (mass/volume)Ordered By: Jose Trinh on 09-10-2023 Creatinine [Mass/Vol] 1.18 mg/dL 0.70-1.30 [facility] Comment on above: The validity of the calculated GFR & GFRAA in patients over 70 years has not been determined. Clinical correlation is essential. Serum or plasma urea nitroge n measurement (mass/volume)Ordered By: Jose Trinh on 09-10-2023 Urea nitrogen [Mass/Vol] 30 mg/dL 7-18 [facility] Thin prep Papanicolaou smear with manual screeningOrdered By: Jose Trinh on 09-10-2023 Thin prep Papanicolaou smear with manual screening 3.8 g/dL 3.2-5.0 [facility] Thin prep Papanicolaou smear with manual screening 33 U/L 15-37 [facility] Thin prep Papanicolaou smear with manual screening 4 5-15 [facility] Laboratory - Microbiology an d Antimicrobial susceptibilityon 08-24-2023 SARS-CoV-2 (COVID-19) RNA EVENS+probe Ql (Unsp spec) Detected [facility] No Panel Informationon 08-24 Influenza Types A,B Rapid (Clinic) Not detected [facility] TFTESTon 08-05-2023 Free Testost Direct 4.3 pg/mL Low 6.6-18.1 [facility] ([place] Comment on above: Result Comment: Perf ormed At: [facility] [address] [id number] Tien Fabian MD Ph:[phone] Performed At: [facility] [place] [address] [place], [place] [id number] Nicolas Yanez PhD Ph:[phone] Performed By: #### T SH, ADIFF, ANEU, FT4, [id number], CBC, GFR, LIPID, CMP #### [facility] [address] [place] [address] Testosterone Lvl 293 ng/dL Normal 264-916 [facility] ([place]) Comment on above: Result Comment: Adul t male reference interval is based on a population of healthy nonobese males (BMI <30) between 19 and 39 years old. Jonathan et.al. JCEM 2017,102;9147-7398. PMID: [id number]. Performed By: #### T SH, ADIFF, ANEU, FT4, [id number], CBC, GFR, LIPID, CMP #### [address] [address] .Auto Diffon 07-27-2023 Basophil, Absolute 0.1 10 3/mcL Normal 0.0-0.3 [facility] ([place]) Comment on above: Performed By: #### T SH, ADIFF, ANEU, FT4, [id number], CBC, GFR, LIPID, CMP #### [address] [address] Basophils/100 WBC (Bld) 1.8 % Normal 0.0-2.5 [facility] ([place] Comment on above: Performed By: #### T SH, ADIFF, ANEU, FT4, 869338, CBC, GFR, LIPID, CMP #### [address] [address] Eosinophil, Absolute 0.3 10 3/mcL Normal 0.0-0.7 [facility] ([place]) Comment on above: Performed By: #### T SH, ADIFF, ANEU, FT4, 043191, CBC, GFR, LIPID, CMP #### [address] [address] Eosinophils/100 WBC (Bld) 7.1 % High 0.0-6.0 [facility] ([place] Comment on above: Performed By: #### T SH, ADIFF, ANEU, FT4, [id number], CBC, GFR, LIPID, CMP #### [address] [address] Lymphocyte, Absolute 1.4 10 3/mcL Normal 0.9-4.3 [facility] ([place] Comment on above: Performed By: #### T SH, ADIFF, ANEU, FT4, 070691, CBC, GFR, LIPID, CMP #### [address] [address] Lymphocytes/100 WBC (Bld) 30.4 % Normal 20.0-40.0 [facility] ([place] Comment on above: Performed By: #### T SH, ADIFF, ANEU, FT4, 289363, CBC, GFR, LIPID, CMP #### [address] [address] Monocyte, Absolute 0.3 10 3/mcL Normal 0.1-1.4 [facility] ([place] Comment on above: Performed By: #### T SH, ADIFF, ANEU, FT4, 412194, CBC, GFR, LIPID, CMP #### [address] [address] Monocytes/100 WBC (Bld) 6.4 % Normal 2.0-13.0 [facility] ([place] Comment on above: Performed By: #### T SH, ADIFF, ANEU, FT4, 641602, CBC, GFR, LIPID, CMP #### [address] [address] Neutrophils/100 WBC (Bld) 54.3 % Normal 50.0-75.0 [facility] ([place] Comment on above: Performed By: #### T SH, ADIFF, ANEU, FT4, 665607, CBC, GFR, LIPID, CMP #### [address] [address] .GFRon 07-27-2023 GFR >60 Normal [facility] ([place] Comment on above: Result Comment: GFR Population [...] By: #### T SH, ADIFF, ANEU, FT4, 353509, CBC, GFR, LIPID, CMP #### [address] [address] GFR Non- >60 Normal [facility] ([place] Comment on above: Result Comment: GFR Population [...] By: #### T SH, ADIFF, ANEU, FT4, 350034, CBC, GFR, LIPID, CMP #### [address] [address] .NEUABSon 07-27-2023 Neutrophil, Absolute 2.5 10 3/mcL Normal 2.3-8.1 [facility] ([place] Comment on above: Performed By: #### T SH, ADIFF, ANEU, FT4, 335002, CBC, GFR, LIPID, CMP #### [address] [address] CBCon 07-27-2023 Erythrocyte distribution width (RBC) [Ratio] 13.7 % Normal 11.5-15.5 [facility] ([place] Comment on above: Performed By: #### 1 [address]32, GFR, ANEU, CMP, ADIFF, TSH, FT4, LIPID, CBC #### [place] [address] Hematocrit (Bld) [Volume fraction] 46.9 % Normal 40.0-52.0 [facility] ([place] Comment on above: Performed By: #### 1 94457, GFR, ANEU, CMP, ADIFF, TSH, FT4, LIPID, CBC #### [address] [address] Hgb 15.8 G/dL Normal 13.0-17.5 [facility] ([place] Comment on above: Performed By: #### 1 71128, GFR, ANEU, CMP, ADIFF, TSH, FT4, LIPID, CBC #### [place] [address] MCH (RBC) [Entitic mass] 31.6 pg Normal 27.0-33.0 [facility] ([place] Comment on above: Performed By: #### 1 50757, GFR, ANEU, CMP, ADIFF, TSH, FT4, LIPID, CBC #### [place] [address] MCHC 33.6 G/dL Normal 32.0-36.0 [facility] ([place] Comment on above: Performed By: #### 1 90614, GFR, ANEU, CMP, ADIFF, TSH, FT4, LIPID, CBC #### [place] [address] MCV (RBC) [Entitic vol] 93.9 fL Normal 81.0-100.0 [facility] ([place] Comment on above: Performed By: #### 1 63513, GFR, ANEU, CMP, ADIFF, TSH, FT4, LIPID, CBC #### [place] [address] Platelet 249 10 3/mcL Normal 150-450 [facility] ([place] Comment on above: Performed By: #### 1 15259, GFR, ANEU, CMP, ADIFF, TSH, FT4, LIPID, CBC #### [place] [address] Platelet mean volume (Bld) [Entitic vol] 9.0 fL Normal 6.4-10.5 [facility] ([place] Comment on above: Performed By: #### 1 08580, GFR, ANEU, CMP, ADIFF, TSH, FT4, LIPID, CBC #### [place] [address] RBC 5.00 10 6/mcL Normal 4.50-6.00 [facility] ([place] Comment on above: Performed By: #### 1 73060, GFR, ANEU, CMP, ADIFF, TSH, FT4, LIPID, CBC #### [place] [address] WBC 4.6 10 3/mcL Normal 4.5-10.8 [facility] ([place] Comment on above: Performed By: #### 1 11569, GFR, ANEU, CMP, ADIFF, TSH, FT4, LIPID, CBC #### [address] [address] CMPon 07-27-2023 Albumin Level 3.8 G/dL Normal 3.2-4.8 [facility] ([place] Comment on above: Performed By: #### T SH, ADIFF, ANEU, FT4, 646766, CBC, GFR, LIPID, CMP #### [place] [address] Albumin/Globulin [Mass ratio] 1.2 {ratio} Normal 0.9-1.6 [facility] ([place] Comment on above: Performed By: #### T SH, ADIFF, ANEU, FT4, 604580, CBC, GFR, LIPID, CMP #### [place] [address] ALP [Catalytic activity/Vol] 77 U/L Normal 38-126 [facility] ([place] Comment on above: Performed By: #### T SH, ADIFF, ANEU, FT4, 160480, CBC, GFR, LIPID, CMP #### [place] [address] ALT [Catalytic activity/Vol] 21 U/L Normal 12-55 [facility] ([place] Comment on above: Performed By: #### T SH, ADIFF, ANEU, FT4, 774993, CBC, GFR, LIPID, CMP #### [place] [id number] AST [Catalytic activity/Vol] 23 U/L Normal 8-34 [facility] ([place] Comment on above: Performed By: #### T SH, ADIFF, ANEU, FT4, 438825, CBC, GFR, LIPID, CMP #### [place] [id number] Bili Total 0.50 mg/dL Normal 0.20-1.20 [facility] ([place] Comment on above: Result Comment: Use of this assay is not recommended for patients undergoing treatment with eltrombopag due to the potential for falsely elevated results. Performed By: #### T SH, ADIFF, ANEU, FT4, 616622, CBC, GFR, LIPID, CMP #### [address] [address] BUN/Creatinine Ratio 25.9 ratio High 10.0-22.0 [facility] ([place] Comment on above: Performed By: #### T SH, ADIFF, ANEU, FT4, 209764, CBC, GFR, LIPID, CMP #### [address] [address] Calcium [Mass/Vol] 9.0 mg/dL Normal 8.7-10.4 [facility] ([place]) Comment on above: Performed By: #### T SH, ADIFF, ANEU, FT4, 758828, CBC, GFR, LIPID, CMP #### [address] [address] Chloride [Moles/Vol] 107 mmol/L Normal 98-110 [facility] ([place] Comment on above: Performed By: #### T SH, ADIFF, ANEU, FT4, 518565, CBC, GFR, LIPID, CMP #### [address] [address] CO2 [Moles/Vol] 30 mmol/L Normal 22-32 [facility] ([place] Comment on above: Performed By: #### T SH, ADIFF, ANEU, FT4, 197733, CBC, GFR, LIPID, CMP #### [address] [address] Creatinine [Mass/Vol] 0.85 mg/dL Normal 0.60-1.40 [facility] ([place] Comment on above: Performed By: #### T SH, ADIFF, ANEU, FT4, 276182, CBC, GFR, LIPID, CMP #### [address] [address] Electrolyte Balance 4.0 mEq/L Normal 4.0-15.0 [facility] ([place] Comment on above: Performed By: #### T SH, ADIFF, ANEU, FT4, 190281, CBC, GFR, LIPID, CMP #### [place] [address] Globulin 3.1 G/dL Normal 1.5-3.8 [facility] ([place] Comment on above: Performed By: #### T SH, ADIFF, ANEU, FT4, 860663, CBC, GFR, LIPID, CMP #### [address] [address] Glucose [Mass/Vol] 97 mg/dL Normal 82-115 [facility] ([place] Comment on above: Performed By: #### T SH, ADIFF, ANEU, FT4, 383839, CBC, GFR, LIPID, CMP #### [place] [id number] Potassium [Moles/Vol] 4.2 mmol/L Normal 3.5-5.0 [facility] ([place] Comment on above: Result Comment: Spec imen slightly hemolyzed. Performed By: #### T SH, ADIFF, ANEU, FT4, 499226, CBC, GFR, LIPID, CMP #### [place] [id number] Sodium [Moles/Vol] 141 mmol/L Normal 136-145 [facility] ([place] Comment on above: Performed By: #### T SH, ADIFF, ANEU, FT4, 141078, CBC, GFR, LIPID, CMP #### [place] [address] Total Protein 6.9 G/dL Normal 5.7-8.2 [facility] ([place] Comment on above: Result Comment: No te - New Reference Range in effect 20 Performed By: #### T SH, ADIFF, ANEU, FT4, 415368, CBC, GFR, LIPID, CMP #### [place] [id number] Urea nitrogen [Mass/Vol] 22.0 mg/dL Normal 8.0-22.0 [facility] ([place] Comment on above: Performed By: #### T SH, ADIFF, ANEU, FT4, 529674, CBC, GFR, LIPID, CMP #### [place] [id number] FT4on 07-27-2023 Free T4 [Mass/Vol] 1.03 ng/dL Normal 0.89-1.76 [facility] ([place] Comment on above: Result Comment: No te - New Reference Range in effect 20 Performed By: #### T SH, ADIFF, ANEU, FT4, 971493, CBC, GFR, LIPID, CMP #### [address] [address] LIPIDon 07-27-2023 Cholesterol [Mass/Vol] 198 mg/dL Normal 50-199 [facility] ([place] Comment on above: Result Comment: Chol esterol Reference Interval: Less than 200 Desirable 200-239 Borderline high risk 240 and above High risk Performed By: #### T SH, ADIFF, ANEU, FT4, 168932, CBC, GFR, LIPID, CMP #### [place] [address] Cholesterol in HDL [Mass/Vol] 31 mg/dL Low 40-59 [facility] ([place] Comment on above: Performed By: #### T SH, ADIFF, ANEU, FT4, 594315, CBC, GFR, LIPID, CMP #### [place] [address] Cholesterol in LDL [Mass/Vol] 147 mg/dL High 0-129 [facility] ([place] Comment on above: Performed By: #### T SH, ADIFF, ANEU, FT4, 561231, CBC, GFR, LIPID, CMP #### [place] [id number] Triglyceride [Mass/Vol] 101 mg/dL Normal 3-149 [facility] ([place] Comment on above: Performed By: #### T SH, ADIFF, ANEU, FT4, 917833, CBC, GFR, LIPID, CMP #### [place] [id number] TSHon 07-27-2023 TSH 2.058 mIU/mL Normal 0.550-4.780 [facility] ([place] Comment on above: Result Comment: No te - New Reference Range in effect 20 Performed By: #### T SH, ADIFF, ANEU, FT4, 148074, CBC, GFR, LIPID, CMP #### [place] [address] Absolute lymphocyte countOrd ered By: Josue Jamison on 01-08-2023 Lymphocytes Auto (Unsp spec) [#/Vol] 1.35 10*3/uL 0.83-4.51 [facility] Basophil percentageOrdered B y: Josue Jamison on 01-08-2023 Basophils/100 WBC (Bld) 1.0 % 0-1 [facility] Chloride [Moles/Vol] 104 mmol/L 98-107 [facility] Eosinophils/100 WBC (Bld) 2.4 % 0-5 [facility] Glucose [Mass/Vol] 99 mg/dL 74-106 [facility] Neutrophils (Bld) [#/Vol] 7.1 10*3/uL 2.0-7.7 [facility] Neutrophils/100 WBC (Bld) 75.2 % 47-70 [facility] Potassium [Moles/Vol] 4.7 mmol/L 3.5-5.1 [facility] Sodium [Moles/Vol] 140 mmol/L 136-145 [facility] WBC (Bld) [#/Vol] 9.4 10*3/uL 4.4-11.0 [facility] Blood erythrocytes count (nu mber/volume)Ordered By: Josue Jamison on 01-08-2023 RBC (Bld) [#/Vol] 5.59 10*6/uL 4.6-6.2 [facility] Blood hemoglobin measurement (mass/volume)Ordered By: Josue Jamison on 01-08-2023 Hemoglobin (Bld) [Mass/Vol] 17.2 g/dL 13.0-16.5 [facility] Blood lymphocytes/100 leukoc ytesOrdered By: Josue Jamison on 01-08-2023 Lymphocytes/100 WBC (Bld) 14.4 % 19-41 [facility] Blood monocytes/100 leukocyt esOrdered By: Josue Jamison on 01-08-2023 Monocytes/100 WBC (Bld) 6.6 % 0-10 [facility] Blood platelet mean volumeOr dered By: Josue Jamison on 01-08-2023 Platelet mean volume (Bld) [Entitic vol] 9.9 fL 6.2-12.0 [facility] Determination of erythrocyte mean corpuscular volume (MCV)Ordered By: Josue Jamison on 01-08-2023 MCV (RBC) [Entitic vol] 91.2 fL 80-94 [facility] Hematocrit Auto (Bld) [Volum e fraction]Ordered By: Josue Jamison on 01-08-2023 Hematocrit (Bld) [Volume fraction] 51.0 % 40-54 [facility] Laboratory - Chemistry and C hemistry - challengeOrdered By: Josue Jamison on 01-08-2023 CO2 [Moles/Vol] 26.0 mmol/L 21.0-32.0 [facility] Urea nitrogen/Creatinine [Mass ratio] 17.9 mg/mg 10-20 [facility] Laboratory - Hematology and Cell countsOrdered By: Josue Jamison on 01-08-2023 Erythrocyte distribution width (RBC) [Entitic vol] 44.7 fL 35.1-43.9 [facility] Erythrocyte distribution width (RBC) [Ratio] 13.2 % 11.6-14.6 [facility] Immature granulocytes/100 WBC (Bld) 0.400 % 0.0-0.9 [facility] Comment on above: IG% - Immature Granu locytes (promyelocytes, myelocytes and metamyelocytes) > 1% indicates that a LEFT SHIFT is Present. MCH (RBC) [Entitic mass] 30.8 pg 27.0-32.0 [facility] Nucleated RBC/100 WBC (Bld) [Ratio] 0 % 0-5 [facility] MCHC Auto (RBC) [Mass/Vol]Or dered By: Josue Jamison on 01-08-2023 MCHC (RBC) [Mass/Vol] 33.7 g/dL 32-36 [facility] No Panel InformationOrdered By: Josue Jamison on 01-08-2023 Estimated Creatinine Clearance Calc 35.50 ml/min [facility] Estimated GFR (MDRD) Amer 45 mL/min >60 [facility] Comment on above: GFR Calc Estimated GFR (MDRD) Non-Af Amer 38 mL/min >60 [facility] Comment on above: Non- GFR Calc Platelets bldOrdered By: Frederick galvezricky Shaheen on 01-08-2023 Platelets (Bld) [#/Vol] 294 10*3/uL 150-450 [facility] Serum or plasma calcium dougie urement (mass/volume)Ordered By: Josue Jamison on 01-08-2023 Calcium [Mass/Vol] 9.8 mg/dL 8.5-10.1 [facility] Serum or plasma creatinine m easurement (mass/volume)Ordered By: Josue Jamison on 01-08-2023 Creatinine [Mass/Vol] 1.90 mg/dL 0.70-1.30 [facility] Comment on above: The validity of the calculated GFR & GFRAA in patients over 70 years has not been determined. Clinical correlation is essential. Serum or plasma urea nitroge n measurement (mass/volume)Ordered By: Josue Jamison on 01-08-2023 Urea nitrogen [Mass/Vol] 34 mg/dL 7-18 [facility] Thin prep Papanicolaou smear with manual screeningOrdered By: Josue Jamison on 01-08-2023 Thin prep Papanicolaou smear with manual screening 10 5-15 [facility] Absolute lymphocyte counton 06-27-2022 Lymphocytes Auto (Unsp spec) [#/Vol] 1.56 10*3/uL 0.83-4.51 [facility] Work Phone: Basophil percentageon 2021 Basophils/100 WBC (Bld) 1.2 % 0-1 [facility] Work Phone: Eosinophils/100 WBC (Bld) 3.6 % 0-5 [facility] Work Phone: Neutrophils (Bld) [#/Vol] 4.4 10*3/uL 2.0-7.7 [facility] Work Phone: Neutrophils/100 WBC (Bld) 64.7 % 47-70 [facility] Work Phone: WBC (Bld) [#/Vol] 6.8 10*3/uL 4.4-11.0 [facility] Work Phone: Bilirubin [Mass/Vol] 0.60 mg/dL 0.20-1.00 [facility] Work Phone: Comment on above: For patients on eltr ombopag therapy, use of Dimension [place] TBIL is not recommended. Chloride [Moles/Vol] 106 mmol/L 98-107 [facility] Work Phone: Cholesterol [Mass/Vol] 176 mg/dL <200 [facility] Work Phone: Comment on above: <200 mg/dL Desirable 200-240 mg/dL Borderline >240 mg/dL High Risk Glucose [Mass/Vol] 95 mg/dL 74-106 [facility] Work Phone: Potassium [Moles/Vol] 3.9 mmol/L 3.5-5.1 [facility] Work Phone: Protein [Mass/Vol] 6.5 g/dL 6.4-8.2 [facility] Work Phone: Sodium [Moles/Vol] 138 mmol/L 136-145 [facility] Work Phone: Triglyceride [Mass/Vol] 94 mg/dL <199 [facility] Work Phone: Comment on above: The drugs N-Acetylcy steine and Metamizole may falsely depress this assay.Serum Triglycerides Reference Interval Normal <150 mg/dL Borderline high 150 - 199 mg/dL High 200 - 499 mg/dL Very High > or = 500 mg/dL Blood erythrocytes count (nu mber/volume)on 06-27-2022 RBC (Bld) [#/Vol] 4.97 10*6/uL 4.6-6.2 [facility] Work Phone: Blood hemoglobin measurement (mass/volume)on 06-27-2022 Hemoglobin (Bld) [Mass/Vol] 14.7 g/dL 13.0-16.5 [facility] Work Phone: Blood lymphocytes/100 leukoc yteson 06-27-2022 Lymphocytes/100 WBC (Bld) 23.1 % 19-41 [facility] Work Phone: Blood monocytes/100 leukocyt eson 06-27-2022 Monocytes/100 WBC (Bld) 7.1 % 0-10 [facility] Work Phone: [phone] Blood platelet mean volumeon 06-27-2022 Platelet mean volume (Bld) [Entitic vol] 9.3 fL 6.2-12.0 [facility] Work Phone: Determination of erythrocyte mean corpuscular volume (MCV)on 06-27-2022 MCV (RBC) [Entitic vol] 92.0 fL 80-94 [facility] Work Phone: Erythrocyte sedimentation ra frederick 06-27-2022 ESR (Bld) [Velocity] 13 mm/h 0-20 [facility] Work Phone: Hematocrit Auto (Bld) [Volum e fraction]on 06-27-2022 Hematocrit (Bld) [Volume fraction] 45.7 % 40-54 [facility] Work Phone: INR in Blood by Coagulation assayon 06-27-2022 INR Coag (Bld) [Relative time] 1.1 {INR} [facility] Work Phone: Laboratory - Chemistry and C hemistry - challengeon 06-27-2022 ALP [Catalytic activity/Vol] 100 U/L 45-117 [facility] Work Phone: ALT [Catalytic activity/Vol] 27 U/L 16-61 [facility] Work Phone: CO2 [Moles/Vol] 25.0 mmol/L 21.0-32.0 [facility] Work Phone: Globulin (S) [Mass/Vol] 3.5 g/dL 2.2-4.2 [facility] Work Phone: Magnesium [Mass/Vol] 2.0 mg/dL 1.6-2.6 [facility] Work Phone: Urea nitrogen/Creatinine [Mass ratio] 15.2 mg/mg 10-20 [facility] Work Phone: Laboratory - Coagulationon 1 08-28-2021 PT Coag (PPP) [Time] 13.7 s 11.7-14.9 [facility] Work Phone: Laboratory - Hematology and Cell countson 06-27-2022 Erythrocyte distribution width (RBC) [Entitic vol] 46.3 fL 35.1-43.9 [facility] Work Phone: Erythrocyte distribution width (RBC) [Ratio] 13.6 % 11.6-14.6 [facility] Work Phone: Immature granulocytes/100 WBC (Bld) 0.300 % 0.0-0.9 [facility] Work Phone: Comment on above: IG% - Immature Granu locytes (promyelocytes, myelocytes and metamyelocytes) > 1% indicates that a LEFT SHIFT is Present. MCH (RBC) [Entitic mass] 29.6 pg 27.0-32.0 [facility] Work Phone: Nucleated RBC/100 WBC (Bld) [Ratio] 0 % 0-5 [facility] Work Phone: MCHC Auto (RBC) [Mass/Vol]on 06-27-2022 MCHC (RBC) [Mass/Vol] 32.2 g/dL 32-36 [facility] Work Phone: No Panel Informationon 06-27 Estimated Creatinine Clearance Calc 80.47 ml/min [facility] Work Phone: Estimated GFR (MDRD) Amer 115 mL/min >60 [facility] Health Work Phone: Comment on above: GFR Calc Estimated GFR (MDRD) Non-Af Amer 95 mL/min >60 [facility] Work Phone: Comment on above: Non- GFR Calc Thyroid Stimulating Hormone (TSH) 2.28 uIU/mL 0.358-3.74 [facility] Work Phone: Troponin I High Sensitivity 94 pg/mL 3.0-78.0 [facility] Work Phone: Comment on above: Please Note: New Beth t Units and Gender Specific Reference Ranges. For more information see Policy Stat Procedure [place] High Sensitivity Troponin (TNIH) and attachments. Platelets bldon 06-27-2022 Platelets (Bld) [#/Vol] 325 10*3/uL 150-450 [facility] Work Phone: Serum or plasma C reactive p rotein measurement (mass/volume)on 06-27-2022 CRP [Mass/Vol] 11.50 mg/L 0.0-3.0 [facility] Work Phone: Comment on above: C-Reactive Protein ( CRP) provides useful information for thediagnosis, therapy and monitoring of inflammatory processesand associated diseases. For the evaluation of Relative Riskfor Cardiovascular Disease, a High Sensitivity CRP (HSCRP)should be ordered. Serum or plasma albumin dougie urement (mass/volume)on 06-27-2022 Albumin [Mass/Vol] 3.0 g/dL 3.2-5.0 [facility] Work Phone: Serum or plasma albumin/glob ulin mass ratioon 06-27-2022 Albumin/Globulin [Mass ratio] 0.9 {ratio} 0.9-2.4 [facility] Work Phone: Serum or plasma calcium dougie urement (mass/volume)on 06-27-2022 Calcium [Mass/Vol] 8.7 mg/dL 8.5-10.1 [facility] Work Phone: Serum or plasma cholesterol in HDL measurement (mass/volume)on 06-27-2022 Cholesterol in HDL [Mass/Vol] 27 mg/dL >40 [facility] Work Phone: Comment on above: The drugs N-Acetylcy steine and Metamizole may falsely depress this assay. Reference Range HDL <40 mg/dL Low HDL Cholesterol HDL >or= 60 mg/dL High HDL Cholesterol Serum or plasma cholesterol in VLDL measurement (mass/volume)on 06-27-2022 Cholesterol in VLDL [Mass/Vol] 19 mg/dL 5-40 [facility] Work Phone: Serum or plasma creatinine m easurement (mass/volume)on 06-27-2022 Creatinine [Mass/Vol] 0.85 mg/dL 0.70-1.30 [facility] Work Phone: Comment on above: The validity of the calculated GFR & GFRAA in patients over 70 years has not been determined. Clinical correlation is essential. Serum or plasma low density lipoprotein (LDL) cholesterol measurement (mass/volume)on 06-27-2022 Cholesterol in LDL [Mass/Vol] 130 mg/dL 0-130 [facility] Work Phone: Serum or plasma urea nitroge n measurement (mass/volume)on 06-27-2022 Urea nitrogen [Mass/Vol] 13 mg/dL 7-18 [facility] Work Phone: Thin prep Papanicolaou smear with manual screeningon 06-27-2022 Thin prep Papanicolaou smear with manual screening 25 U/L 15-37 [facility] Work Phone: Thin prep Papanicolaou smear with manual screening 7 5-15 [facility] Work Phone: Absolute lymphocyte counton 06-26-2022 Lymphocytes Auto (Unsp spec) [#/Vol] 1.43 10*3/uL 0.83-4.51 [facility] Work Phone: Basophil percentageon 2021 Basophils/100 WBC (Bld) 1.2 % 0-1 [facility] Work Phone: Chloride [Moles/Vol] 105 mmol/L 98-107 [facility] Work Phone: Eosinophils/100 WBC (Bld) 2.2 % 0-5 [facility] Work Phone: Glucose [Mass/Vol] 99 mg/dL 74-106 [facility] Work Phone: Neutrophils (Bld) [#/Vol] 6.4 10*3/uL 2.0-7.7 [facility] Work Phone: Neutrophils/100 WBC (Bld) 73.8 % 47-70 [facility] Work Phone: Potassium [Moles/Vol] 4.5 mmol/L 3.5-5.1 [facility] Work Phone: [phone] Sodium [Moles/Vol] 141 mmol/L 136-145 [facility] Work Phone: WBC (Bld) [#/Vol] 8.7 10*3/uL 4.4-11.0 [facility] Work Phone: [phone] Blood erythrocytes count (nu mber/volume)on 06-26-2022 RBC (Bld) [#/Vol] 5.29 10*6/uL 4.6-6.2 [facility] Work Phone: Blood hemoglobin measurement (mass/volume)on 06-26-2022 Hemoglobin (Bld) [Mass/Vol] 15.9 g/dL 13.0-16.5 [facility] Work Phone: Blood lymphocytes/100 leukoc yteson 06-26-2022 Lymphocytes/100 WBC (Bld) 16.5 % 19-41 [facility] Work Phone: Blood monocytes/100 leukocyt eson 06-26-2022 Monocytes/100 WBC (Bld) 5.8 % 0-10 [facility] Work Phone: Blood platelet mean volumeon 06-26-2022 Platelet mean volume (Bld) [Entitic vol] 9.1 fL 6.2-12.0 [facility] Work Phone: Determination of erythrocyte mean corpuscular volume (MCV)on 06-26-2022 MCV (RBC) [Entitic vol] 93.0 fL 80-94 [facility] Work Phone: Hematocrit Auto (Bld) [Volum e fraction]on 06-26-2022 Hematocrit (Bld) [Volume fraction] 49.2 % 40-54 [facility] Work Phone: Laboratory - Chemistry and C hemistry - challengeon 06-26-2022 CO2 [Moles/Vol] 35.0 mmol/L 21.0-32.0 [facility] Work Phone: Natriuretic peptide B (Bld) [Mass/Vol] 22.5 pg/mL 0-100 [facility] Work Phone: Urea nitrogen/Creatinine [Mass ratio] 14.7 mg/mg 10-20 [facility] Work Phone: Laboratory - Hematology and Cell countson 06-26-2022 Erythrocyte distribution width (RBC) [Entitic vol] 45.4 fL 35.1-43.9 [facility] Work Phone: Erythrocyte distribution width (RBC) [Ratio] 13.2 % 11.6-14.6 [facility] Work Phone: Immature granulocytes/100 WBC (Bld) 0.500 % 0.0-0.9 [facility] Work Phone: Comment on above: IG% - Immature Granu locytes (promyelocytes, myelocytes and metamyelocytes) > 1% indicates that a LEFT SHIFT is Present. MCH (RBC) [Entitic mass] 30.1 pg 27.0-32.0 [facility] Work Phone: Nucleated RBC/100 WBC (Bld) [Ratio] 0 % 0-5 [facility] Work Phone: MCHC Auto (RBC) [Mass/Vol]on 06-26-2022 MCHC (RBC) [Mass/Vol] 32.3 g/dL 32-36 [facility] Work Phone: No Panel Informationon 06-26 Troponin I High Sensitivity 101 pg/mL 3.0-78.0 [facility] Work Phone: Comment on above: Please Note: New Beth t Units and Gender Specific Reference Ranges. For more information see Policy Stat Procedure [place] High Sensitivity Troponin (TNIH) and attachments. Estimated Creatinine Clearance Calc 72.00 ml/min [facility] Work Phone: Estimated GFR (MDRD) Amer 101 mL/min >60 [facility] Work Phone: Comment on above: GFR Calc Estimated GFR (MDRD) Non-Af Amer 83 mL/min >60 [facility] Work Phone: Comment on above: Non- GFR Calc Platelets bldon 06-26-2022 Platelets (Bld) [#/Vol] 346 10*3/uL 150-450 [facility] Work Phone: Serum or plasma calcium dougie urement (mass/volume)on 06-26-2022 Calcium [Mass/Vol] 9.3 mg/dL 8.5-10.1 [facility] Work Phone: Serum or plasma creatinine m easurement (mass/volume)on 06-26-2022 Creatinine [Mass/Vol] 0.95 mg/dL 0.70-1.30 [facility] Work Phone: Comment on above: The validity of the calculated GFR & GFRAA in patients over 70 years has not been determined. Clinical correlation is essential. Serum or plasma urea nitroge n measurement (mass/volume)on 06-26-2022 Urea nitrogen [Mass/Vol] 14 mg/dL 7-18 [facility] Work Phone: Thin prep Papanicolaou smear with manual screeningon 06-26-2022 Thin prep Papanicolaou smear with manual screening 1 - [facility] Work Phone: Basophil percentageon 2021 Chloride [Moles/Vol] 100 mmol/L 98-107 [facility] Work Phone: Glucose [Mass/Vol] 161 mg/dL 74-106 [facility] Work Phone: Comment on above: Fasting Glucose resu lt greater than or equal to 126 mg/dL suggests DIABETES MELLITUS per A.D.A. criteria. Potassium [Moles/Vol] 4.6 mmol/L 3.5-5.1 [facility] Work Phone: Sodium [Moles/Vol] 135 mmol/L 136-145 [facility] Work Phone: WBC (Bld) [#/Vol] 12.6 10*3/uL 4.4-11.0 [facility] Work Phone: Blood erythrocytes count (nu mber/volume)on 06-13-2022 RBC (Bld) [#/Vol] 4.75 10*6/uL 4.6-6.2 [facility] Work Phone: Blood hemoglobin measurement (mass/volume)on 06-13-2022 Hemoglobin (Bld) [Mass/Vol] 14.1 g/dL 13.0-16.5 [facility] Work Phone: Blood platelet mean volumeon 06-13-2022 Platelet mean volume (Bld) [Entitic vol] 9.7 fL 6.2-12.0 [facility] Work Phone: Determination of erythrocyte mean corpuscular volume (MCV)on 06-13-2022 MCV (RBC) [Entitic vol] 92.0 fL 80-94 [facility] Work Phone: Hematocrit Auto (Bld) [Volum e fraction]on 06-13-2022 Hematocrit (Bld) [Volume fraction] 43.7 % 40-54 [facility] Work Phone: Laboratory - Chemistry and C hemistry - challengeon 06-13-2022 CO2 [Moles/Vol] 29.0 mmol/L 21.0-32.0 [facility] Work Phone: Urea nitrogen/Creatinine [Mass ratio] 20.2 mg/mg 10-20 [facility] Work Phone: Laboratory - Hematology and Cell countson 06-13-2022 Erythrocyte distribution width (RBC) [Entitic vol] 44.0 fL 35.1-43.9 [facility] Work Phone: Erythrocyte distribution width (RBC) [Ratio] 12.9 % 11.6-14.6 [facility] Work Phone: MCH (RBC) [Entitic mass] 29.7 pg 27.0-32.0 [facility] Work Phone: MCHC Auto (RBC) [Mass/Vol]on 06-13-2022 MCHC (RBC) [Mass/Vol] 32.3 g/dL 32-36 [facility] Work Phone: No Panel Informationon 06-13 Estimated Creatinine Clearance Calc 55.16 ml/min [facility] Work Phone: Estimated GFR (MDRD) Amer 74 mL/min >60 [facility] Work Phone: Comment on above: GFR Calc Estimated GFR (MDRD) Non-Af Amer 62 mL/min >60 [facility] Work Phone: Comment on above: Non- GFR Calc Platelets bldon 06-13-2022 Platelets (Bld) [#/Vol] 239 10*3/uL 150-450 [facility] Work Phone: Serum or plasma calcium dougie urement (mass/volume)on 06-13-2022 Calcium [Mass/Vol] 7.7 mg/dL 8.5-10.1 [facility] Work Phone: Serum or plasma creatinine m easurement (mass/volume)on 06-13-2022 Creatinine [Mass/Vol] 1.24 mg/dL 0.70-1.30 [facility] Work Phone: Comment on above: The validity of the calculated GFR & GFRAA in patients over 70 years has not been determined. Clinical correlation is essential. Serum or plasma urea nitroge n measurement (mass/volume)on 06-13-2022 Urea nitrogen [Mass/Vol] 25 mg/dL 7-18 [facility] Work Phone: Thin prep Papanicolaou smear with manual screeningon 06-13-2022 Thin prep Papanicolaou smear with manual screening 6 5-15 [facility] Work Phone: Absolute lymphocyte counton 05-29-2022 Lymphocytes Auto (Unsp spec) [#/Vol] 1.44 10*3/uL 0.83-4.51 [facility] Work Phone: Basophil percentageon 2021 Basophils/100 WBC (Bld) 1.6 % 0-1 [facility] Work Phone: Bilirubin [Mass/Vol] 0.70 mg/dL 0.20-1.00 [facility] Work Phone: [phone] Comment on above: For patients on eltr ombopag therapy, use of Dimension [place] TBIL is not recommended. Eosinophils/100 WBC (Bld) 2.3 % 0-5 [facility] Work Phone: Neutrophils (Bld) [#/Vol] 3.6 10*3/uL 2.0-7.7 [facility] Work Phone: Neutrophils/100 WBC (Bld) 63.2 % 47-70 [facility] Work Phone: Protein [Mass/Vol] 7.8 g/dL 6.4-8.2 [facility] Work Phone: Blood lymphocytes/100 leukoc yteson 05-29-2022 Lymphocytes/100 WBC (Bld) 25.6 % 19-41 [facility] Work Phone: Blood monocytes/100 leukocyt eson 05-29-2022 Monocytes/100 WBC (Bld) 6.9 % 0-10 [facility] Work Phone: [phone] Direct bilirubinon 2 Bilirubin.direct [Mass/Vol] 0.17 mg/dL 0.00-0.30 [facility] Work Phone: Laboratory - Chemistry and C hemistry - challengeon 05-29-2022 ALP [Catalytic activity/Vol] 117 U/L 45-117 [facility] Work Phone: [phone] ALT [Catalytic activity/Vol] 26 U/L 16-61 [facility] Work Phone: [phone] Globulin (S) [Mass/Vol] 4.0 g/dL 2.2-4.2 [facility] Work Phone: Laboratory - Hematology and Cell countson 05-29-2022 Immature granulocytes/100 WBC (Bld) 0.400 % 0.0-0.9 [facility] Work Phone: Comment on above: IG% - Immature Granu locytes (promyelocytes, myelocytes and metamyelocytes) > 1% indicates that a LEFT SHIFT is Present. Nucleated RBC/100 WBC (Bld) [Ratio] 0 % 0-5 [facility] Work Phone: Serum or plasma albumin dougie urement (mass/volume)on 05-29-2022 Albumin [Mass/Vol] 3.8 g/dL 3.2-5.0 [facility] Work Phone: Thin prep Papanicolaou smear with manual screeningon 05-29-2022 Thin prep Papanicolaou smear with manual screening 20 U/L 15-37 [facility] Work Phone: Absolute lymphocyte counton 03-01-2022 Lymphocytes Auto (Unsp spec) [#/Vol] 1.45 10*3/uL 0.83-4.51 [facility] Work Phone: Basophil percentageon 2021 Basophils/100 WBC (Bld) 0.7 % 0-1 [facility] Work Phone: Chloride [Moles/Vol] 102 mmol/L 98-107 [facility] Work Phone: Eosinophils/100 WBC (Bld) 1.7 % 0-5 [facility] Work Phone: Glucose [Mass/Vol] 103 mg/dL 74-106 [facility] Work Phone: Comment on above: Fasting Glucose resu lt from 100 to 125 mg/dL suggests IMPAIRED HOMEOSTASIS per A.D.A. criteria. Lactate [Moles/Vol] 1.2 mmol/L 0.4-2.0 [facility] Work Phone: Neutrophils (Bld) [#/Vol] 6.9 10*3/uL 2.0-7.7 [facility] Work Phone: Neutrophils/100 WBC (Bld) 73.3 % 47-70 [facility] Work Phone: Potassium [Moles/Vol] 4.2 mmol/L 3.5-5.1 [facility] Work Phone: Sodium [Moles/Vol] 139 mmol/L 136-145 [facility] Work Phone: [phone] WBC (Bld) [#/Vol] 9.4 10*3/uL 4.4-11.0 [facility] Work Phone: Blood erythrocytes count (nu mber/volume)on 03-01-2022 RBC (Bld) [#/Vol] 4.69 10*6/uL 4.6-6.2 [facility] Work Phone: Blood hemoglobin measurement (mass/volume)on 03-01-2022 Hemoglobin (Bld) [Mass/Vol] 14.5 g/dL 13.0-16.5 [facility] Work Phone: Blood lymphocytes/100 leukoc yteson 03-01-2022 Lymphocytes/100 WBC (Bld) 15.5 % 19-41 [facility] Work Phone: Blood monocytes/100 leukocyt eson 03-01-2022 Monocytes/100 WBC (Bld) 8.2 % 0-10 [facility] Work Phone: Blood platelet mean volumeon 03-01-2022 Platelet mean volume (Bld) [Entitic vol] 9.7 fL 6.2-12.0 [facility] Work Phone: Determination of erythrocyte mean corpuscular volume (MCV)on 03-01-2022 MCV (RBC) [Entitic vol] 92.1 fL 80-94 [facility] Work Phone: Erythrocyte sedimentation ra frederick 03-01-2022 ESR (Bld) [Velocity] 25 mm/h 0-20 [facility] Work Phone: Hematocrit Auto (Bld) [Volum e fraction]on 03-01-2022 Hematocrit (Bld) [Volume fraction] 43.2 % 40-54 [facility] Work Phone: Laboratory - Chemistry and C hemistry - challengeon 03-01-2022 CO2 [Moles/Vol] 32.0 mmol/L 21.0-32.0 [facility] Work Phone: Urea nitrogen/Creatinine [Mass ratio] 19.1 mg/mg 10-20 [facility] Work Phone: Laboratory - Hematology and Cell countson 03-01-2022 Erythrocyte distribution width (RBC) [Entitic vol] 45.0 fL 35.1-43.9 [facility] Work Phone: Erythrocyte distribution width (RBC) [Ratio] 13.4 % 11.6-14.6 [facility] Work Phone: Immature granulocytes/100 WBC (Bld) 0.600 % 0.0-0.9 [facility] Work Phone: Comment on above: IG% - Immature Granu locytes (promyelocytes, myelocytes and metamyelocytes) > 1% indicates that a LEFT SHIFT is Present. MCH (RBC) [Entitic mass] 30.9 pg 27.0-32.0 [facility] Work Phone: Nucleated RBC/100 WBC (Bld) [Ratio] 0 % 0-5 [facility] Work Phone: MCHC Auto (RBC) [Mass/Vol]on 03-01-2022 MCHC (RBC) [Mass/Vol] 33.6 g/dL 32-36 [facility] Work Phone: No Panel Informationon 03-01 Estimated Creatinine Clearance Calc 86.90 ml/min [facility] Work Phone: Estimated GFR (MDRD) Amer 117 mL/min >60 [facility] Work Phone: Comment on above: GFR Calc Estimated GFR (MDRD) Non-Af Amer 97 mL/min >60 [facility] Work Phone: Comment on above: Non- GFR Calc Platelets bldon 03-01-2022 Platelets (Bld) [#/Vol] 299 10*3/uL 150-450 [facility] Work Phone: Serum or plasma C reactive p rotein measurement (mass/volume)on 03-01-2022 CRP [Mass/Vol] 133.00 mg/L 0.0-3.0 [facility] Work Phone: Comment on above: C-Reactive Protein ( CRP) provides useful information for thediagnosis, therapy and monitoring of inflammatory processesand associated diseases. For the evaluation of Relative Riskfor Cardiovascular Disease, a High Sensitivity CRP (HSCRP)should be ordered. Serum or plasma calcium dougie urement (mass/volume)on 03-01-2022 Calcium [Mass/Vol] 8.9 mg/dL 8.5-10.1 [facility] Work Phone: Serum or plasma creatinine m easurement (mass/volume)on 03-01-2022 Creatinine [Mass/Vol] 0.84 mg/dL 0.70-1.30 [facility] Work Phone: Comment on above: The validity of the calculated GFR & GFRAA in patients over 70 years has not been determined. Clinical correlation is essential. Serum or plasma urea nitroge n measurement (mass/volume)on 03-01-2022 Urea nitrogen [Mass/Vol] 16 mg/dL 7-18 [facility] Work Phone: Thin prep Papanicolaou smear with manual screeningon 03-01-2022 Thin prep Papanicolaou smear with manual screening 5 5-15 [facility] Work Phone: Laboratory - Microbiology an d Antimicrobial susceptibilityon 01-11-2022 SARS-CoV-2 (COVID-19) RNA EVENS+probe Ql (Unsp spec) Detected [facility] Work Phone: No Panel Informationon 01-11 Influenza Types A,B Rapid (Clinic) Not detected [facility] Work Phone: ECHO Complete 2D W Doppler W Coloron 11-28-2021 TRANSTHORACIC ECHOCA RDIOGRAM PATIENT: Christopher Silva STUDY DATE: 11/28/2021 : 1955 AGE: 66 HT/WT: 177.8 cm (70 140.6 kg in) (309.3 lb) GENDER: M BP: 122 / 81 LOCATION: [place] [address] [address] STATUS: *ORDERING PHYSICIAN: * Shana Huerta *READING PHYSICIAN: * Sandra Shanks *WATER RESOURCE ENGINEERING SPECIALIST: * Demetrice Catalan INDICATIONS: One year post [...] A-P, 2.1 cm (more content not included)... [facility] Sandra Shanks M D - 11/28/2021 TRANSTHORACIC ECHOCARDIOGRAM PATIENT: Christopher Silva STUDY DATE: 11/28/2021 : 1955 AGE: 66 HT/WT: 177.8 cm (70 140.6 kg in) (309.3 lb) GENDER: M BP: 122 / 81 LOCATION: [place] [address] [address] STATUS: *ORDERING PHYSICIAN: * Shana Huerta *READING PHYSICIAN: * Sandra Shanks *WATER RESOURCE ENGINEERING SPECIALIST: * Demetrice Catalan INDICATIONS: One year post [...] 2.5 - 4.0 (more content not included)... [facility] Work Phone: ECHO Complete 2D W Doppler W ColorOrdered By: Sandra Shanks on 11-28-2021 [facility] Work Phone: Echo Complete w/wo Contrasto n 11-28-2021 Echo Complete w/wo Contrast Patient Name: CHRISTOPHER SILVA Ultrasound ACCESSION EXAM DATE/TIME PROCEDURE ORDERING PROVIDER [id number] 11/28/2021 09:58 EDT Echo Complete w/wo KEATON HUERTA, SHANA Reddy Reason For Exam (Echo Complete w/wo Contrast) one year post TAVR Report TRANSTHORACIC ECHOCARDIOGRAM PATIENT: Christopher Silva STUDY DATE: 11/28/2021 [facility]#: [id number] : 1955 AGE: 66 HT/WT: 177.8 cm (70 140.6 kg in) (309.3 lb) GENDER: M BP: 122 / 81 LOCATION: [address] STATUS: *ORDERING PHYSICIAN: * Shana Huerta *READING PHYSICIAN: * Sandra Shanks *WATER RESOURCE ENGINEERING SPECIALIST: * Demetrice Catalan INDICATIONS: One year post [...] Reference Ascendi (more content not included)... Normal [facility] Absolute lymphocyte counton 10-06-2021 Lymphocytes Auto (Unsp spec) [#/Vol] 1.36 10*3/uL 0.83-4.51 [facility] Work Phone: Basophil percentageon 2021 Basophil percentage 0 SEEN /hpf [facility] Work Phone: Basophils/100 WBC (Bld) 1.1 % 0-1 [facility] Work Phone: Chloride [Moles/Vol] 108 mmol/L 98-107 [facility] Work Phone: Eosinophils/100 WBC (Bld) 3.1 % 0-5 [facility] Work Phone: Glucose [Mass/Vol] 100 mg/dL 74-106 [facility] Work Phone: Comment on above: Fasting Glucose resu lt from 100 to 125 mg/dL suggests IMPAIRED HOMEOSTASIS per A.D.A. criteria. Neutrophils (Bld) [#/Vol] 5.2 10*3/uL 2.0-7.7 [facility] Work Phone: Neutrophils/100 WBC (Bld) 70.4 % 47-70 [facility] Work Phone: Potassium [Moles/Vol] 4.3 mmol/L 3.5-5.1 [facility] Work Phone: Sodium [Moles/Vol] 140 mmol/L 136-145 [facility] Work Phone: WBC (Bld) [#/Vol] 7.3 10*3/uL 4.4-11.0 [facility] Work Phone: Bilirubin Test strip Ql (U)o n 10-06-2021 Bilirubin Ql (U) Negative Negative [facility] Work Phone: Blood erythrocytes count (nu mber/volume)on 10-06-2021 RBC (Bld) [#/Vol] 4.89 10*6/uL 4.6-6.2 [facility] Work Phone: Blood hemoglobin measurement (mass/volume)on 10-06-2021 Hemoglobin (Bld) [Mass/Vol] 14.5 g/dL 13.0-16.5 [facility] Work Phone: [phone] Blood lymphocytes/100 leukoc yteson 10-06-2021 Lymphocytes/100 WBC (Bld) 18.6 % 19-41 [facility] Work Phone: Blood monocytes/100 leukocyt eson 10-06-2021 Monocytes/100 WBC (Bld) 6.5 % 0-10 [facility] Work Phone: Blood platelet mean volumeon 10-06-2021 Platelet mean volume (Bld) [Entitic vol] 9.7 fL 6.2-12.0 [facility] Work Phone: Determination of erythrocyte mean corpuscular volume (MCV)on 10-06-2021 MCV (RBC) [Entitic vol] 92.0 fL 80-94 [facility] Work Phone: Hematocrit Auto (Bld) [Volum e fraction]on 10-06-2021 Hematocrit (Bld) [Volume fraction] 45.0 % 40-54 [facility] Work Phone: Ketones Test strip Ql (U)on 10-06-2021 Ketones Ql (U) Negative Negative [facility] Work Phone: Laboratory - Chemistry and C hemistry - challengeon 10-06-2021 CO2 [Moles/Vol] 28.0 mmol/L 21.0-32.0 [facility] Work Phone: Urea nitrogen/Creatinine [Mass ratio] 21.0 mg/mg 10-20 [facility] Work Phone: Laboratory - Hematology and Cell countson 10-06-2021 Erythrocyte distribution width (RBC) [Entitic vol] 45.8 fL 35.1-43.9 [facility] Work Phone: Erythrocyte distribution width (RBC) [Ratio] 13.5 % 11.6-14.6 [facility] Work Phone: Immature granulocytes/100 WBC (Bld) 0.300 % 0.0-0.9 [facility] Work Phone: Comment on above: IG% - Immature Granu locytes (promyelocytes, myelocytes and metamyelocytes) > 1% indicates that a LEFT SHIFT is Present. MCH (RBC) [Entitic mass] 29.7 pg 27.0-32.0 [facility] Work Phone: Nucleated RBC/100 WBC (Bld) [Ratio] 0 % 0-5 [facility] Work Phone: MCHC Auto (RBC) [Mass/Vol]on 10-06-2021 MCHC (RBC) [Mass/Vol] 32.2 g/dL 32-36 [facility] Work Phone: Mucus LM Ql (Urine sed)on Mucus Ql (Urine sed) 0 SEEN /hpf [facility] Work Phone: Nitrite Test strip Ql (U)on 10-06-2021 Nitrite Ql (U) Negative Negative [facility] Work Phone: No Panel Informationon 10-06 Estimated Creatinine Clearance Calc 75.30 ml/min [facility] Work Phone: Estimated GFR (MDRD) Amer 131 mL/min >60 [facility] Work Phone: Comment on above: GFR Calc Estimated GFR (MDRD) Non-Af Amer 108 mL/min >60 [facility] Work Phone: Comment on above: Non- GFR Calc Platelets bldon 10-06-2021 Platelets (Bld) [#/Vol] 280 10*3/uL 150-450 [facility] Work Phone: Protein Test strip Ql (U)on 10-06-2021 Protein Ql (U) Negative Negative [facility] Work Phone: Serum or plasma calcium dougie urement (mass/volume)on 10-06-2021 Calcium [Mass/Vol] 8.3 mg/dL 8.5-10.1 [facility] Work Phone: Serum or plasma creatinine m easurement (mass/volume)on 10-06-2021 Creatinine [Mass/Vol] 0.76 mg/dL 0.70-1.30 [facility] Work Phone: Comment on above: The validity of the calculated GFR & GFRAA in patients over 70 years has not been determined. Clinical correlation is essential. Serum or plasma urea nitroge n measurement (mass/volume)on 10-06-2021 Urea nitrogen [Mass/Vol] 16 mg/dL 7-18 [facility] Work Phone: Squamous epithelial cells de tection in urine sediment by light microscopyon 10-06-2021 Epithelial cells.squamous LM Ql (Urine sed) 0 SEEN /hpf [facility] Work Phone: Thin prep Papanicolaou smear with manual screeningon 10-06-2021 Thin prep Papanicolaou smear with manual screening 4 5-15 [facility] Work Phone: Urine blood detectionon 09-11 RBC Ql (U) Negative Negative [facility] Work Phone: RBC Ql (U) 0 SEEN /hpf [facility] Work Phone: Urine clarityon 10-06-2021 Clarity (U) Clear Clear [facility] Work Phone: Urine color determinationon 10-06-2021 Color (U) Yellow Yellow [facility] Work Phone: Urine glucose detectionon Glucose Ql (U) Normal mg/dl Normal [facility] Work Phone: Urine leukocyte esterase det ection by dipstickon 10-06-2021 Leukocyte esterase Test strip Ql (U) Negative Negative [facility] Work Phone: Urine pHon 10-06-2021 pH (U) 6.0 [pH] [facility] Work Phone: Urine sediment bacteria coun t by microscopy (number/high power field)on 10-06-2021 Bacteria LM.HPF (Urine sed) [#/Area] 0 /[HPF] None Seen [facility] Work Phone: Urine specific gravity measu rementon 10-06-2021 Specific gravity (U) [Rel density] 1.015 [facility] Work Phone: Urobilinogen Auto test strip Ql (U)on 10-06-2021 Urobilinogen Ql (U) Normal mg/dl Normal [facility] Work Phone: No Panel Informationon 08-03 POC SARS CoV-2 Antigen Positive [facility] Work Phone: ECHO Complete 2D W Doppler W ColorOrdered By: Shana Huerta on 01-02-2021 TRANSTHORACIC ECHOCA RDIOGRAM PATIENT: Christopher Silva STUDY DATE: 01/02/2021 : 1955 AGE: 65 HT/WT: 177.8 cm (70 141.1 kg in) (310.4 lb) GENDER: M BP: 134 / 75 LOCATION: [place] [address] [address] STATUS: *ORDERING PHYSICIAN: * Shana Huerta *RN: * Susan NurREADING PHYSICIAN: * Alireza, YudelkaWATER RESOURCE ENGINEERING SPECIALIST: * Nevin Whiteside MD [facility] INDICATIONS: Aortic stenosis, severe. CONCLUSIONS SUMMARY: [...] aorta ID, A-P, (more content not included)... Host Committee Work Phone: Raymundo, [employer] Incoming Cardiology Results From [employer] - 01/02/2021 4:01 PM EDT TRANSTHORACIC ECHOCARDIOGRAM PATIENT: Christopher Silva STUDY DATE: 01/02/2021 : 1955 AGE: 65 HT/WT: 177.8 cm (70 141.1 kg in) (310.4 lb) GENDER: M BP: 134 / 75 LOCATION: [address] STATUS: *ORDERING PHYSICIAN: * Shana Huerta *RN: * Susan Nur *READING PHYSICIAN: * Alireza, *WATER RESOURCE ENGINEERING SPECIALIST: * Nevin Whiteside MD [facility] INDICATIONS: Aortic stenosis, severe. CONCLUSIONS SUMMARY: 1. Aortic valve: Prior repair procedures include transcatheter aortic valve replacement. There is a 23 mm Darnell Cheaynne 3 Ultra bioprosthetic valve. The mean systolic [...] 4.2 - 5.8 (more content not included)... Host Committee Work Phone: Host Committee Work Phone: Echo Complete w/wo Contrasto n 01-02-2021 Echo Complete w/wo Contrast Patient Name: CHRISTOPHER SILVA Ultrasound ACCESSION EXAM DATE/TIME PROCEDURE ORDERING PROVIDER [id number] 01/02/2021 15:28 EDT Echo Complete w/wo KEATON HUERTA MICHELLE Contrast Reason For Exam (Echo Complete w/wo Contrast) aortic stenosis s/p TAVR Report TRANSTHORACIC ECHOCARDIOGRAM PATIENT: Christopher Silva STUDY DATE: 01/02/2021 : 1955 AGE: 65 HT/WT: 177.8 cm (70 141.1 kg in) (310.4 lb) GENDER: M BP: 134 / 75 LOCATION: [employer] PATIENT Outpatient [address] STATUS: *ORDERING PHYSICIAN: * Shana Huerta *RN: * Susan Nur *READING PHYSICIAN: * Alireza, *WATER RESOURCE ENGINEERING SPECIALIST: * Nevin Whiteside MD [facility] INDICATIONS: Aortic stenosis, severe. CONCLUSIONS SUMMARY: [...] ID, A (more content not included)... Normal Mach 1 Development Basic Metabolic PanelOrdered By: Shana Huerta on 11-27-2020 Anion gap [Moles/Vol] 5 mmol/L 3 - 13 mmol/L ERN Phone: Calcium [Mass/Vol] 8.4 mg/dL 8.4 - 10. 4 mg/dL Host Committee Work Phone: Chloride [Moles/Vol] 106 mmol/L 98 - 10 7 mmol/L [facility] [employer] Work Phone: CO2 [Moles/Vol] 27 mmol/L 22 - 30 mmol/L [facility] Work Phone: Creatinine [Mass/Vol] 0.82 mg/dL 0.52 - 1.25 mg/dL ERN Phone: EGFR IF NonAfrican Syrian >90.0 >60 mL/min ERN Phone: Comment on above: KDIGO guidelines pro [...] [Mass/Vol] 99 mg/dL 70 - 100 mg/dL [facility] Work Phone: Potassium [Moles/Vol] 4.6 mmol/L 3.5 - 5.1 mmol/L [facility] Work Phone: Sodium [Moles/Vol] 138 mmol/L 135 - 145 mmol/L [facility] Work Phone: Urea nitrogen (BldV) [Mass/Vol] 16 mg/dL 7 - 20 mg/dL [facility] Work Phone: Test Performed by [address] [id number] [facility] Work Phone: [facility] Work Phone: CBCOrdered By: Shana crowley on 11-27-2020 Hematocrit (Bld) [Volume fraction] 42.9 % 40.0 - 52.0 % [facility] Work Phone: Hemoglobin.gastroint estinal spec 1 Ql (Stl) 14.7 g/dL 13.0 - 18.0 g/dL [facility] Work Phone: MCH (RBC) [Entitic mass] 30.8 pg 26.0 - 34.0 pg [facility] Work Phone: MCHC (RBC) [Mass/Vol] 34.2 % 32.0 - 36.0 % [facility] Work Phone: MCV (RBC) [Entitic vol] 90.2 fL 80.0 - 98.0 fL [facility] Work Phone: Platelet distribution width (Bld) [Ratio] 12.9 % 11.5 - 14.5 % [facility] Work Phone: Platelet mean volume (Bld) [Entitic vol] 8.3 fL 7.4 - 10.4 fL [employer] [employer] Work Phone: 1 Platelets (Bld) [#/Vol] 180 10*3/uL 140 - 440 10*3/uL [employer] Work Phone: 1 RBC (Bld) [#/Vol] 4.75 10*6/uL 4.40 - 5.9 0 10*6/uL [employer] Work Phone: 1 WBC (Bld) [#/Vol] 7.6 10*3/uL 3.6 - 10.7 10*3/uL [employer] Work Phone: [phone] Test Performed by [address] [id number] Host [employer] Work Phone: [phone] Host Committee Work Phone: [phone] ECHO Complete 2D W Doppler W ColorOrdered By: Shana Huerta on 11-27-2020 TRANSTHORACIC ECHOCA RDIOGRAM PATIENT: Christopher Silva STUDY DATE: 11/27/2020 : 1955 AGE: 65 HT/WT: 177.8 cm (70 139.3 kg (306.4 in) lb) GENDER: M BP: 121 / 67 LOCATION: [facility] PATIENT Inpatient main STATUS: *ORDERING PHYSICIAN: * Jae, *FELLOW: * Bernard Morgan MD *READING PHYSICIAN: * Kelsey Torres, *WATER RESOURCE ENGINEERING SPECIALIST: * Kristin Oh MD, [facility], [facility] INDICATIONS: TAVR assessment. POD [...] inspiration. Measurements Value (more content not included)... Host Committee Work Phone: Raymundo, [facility] Incoming Cardiology Results From 3D Data/[employer] - 11/27/2020 11:44 AM EDT TRANSTHORACIC ECHOCARDIOGRAM PATIENT: Christopher Silva STUDY DATE: 11/27/2020 : 1955 AGE: 65 HT/WT: 177.8 cm (70 139.3 kg (306.4 in) lb) GENDER: M BP: 121 / 67 LOCATION: [facility] PATIENT Inpatient main STATUS: *ORDERING PHYSICIAN: * Jae, *FELLOW: * Bernard Morgan MD *READING PHYSICIAN: * Kelsey Torres, *WATER RESOURCE ENGINEERING SPECIALIST: * Kristin Oh MD, [facility], AE INDICATIONS: TAVR assessment. POD [...] <4.5 Value 11/26 (more content not included)... [facility] Work Phone: [employer] Work Phone: Basic Metabolic PanelOrdered By: Shana Huerta on 11-26-2020 Anion gap [Moles/Vol] 6 mmol/L 3 - 13 mmol/L [facility] Work Phone: Calcium [Mass/Vol] 8.0 mg/dL Low 8.4 - 10. 4 mg/dL [facility] Work Phone: Chloride [Moles/Vol] 110 mmol/L High 98 - 10 7 mmol/L [facility] Work Phone: CO2 [Moles/Vol] 25 mmol/L 22 - 30 mmol/L [facility] Work Phone: Creatinine [Mass/Vol] 0.68 mg/dL 0.52 - 1.25 mg/dL [facility] Work Phone: EGFR IF NonAfrican Syrian >90.0 >60 mL/min [facility] Work Phone: Comment on above: KDIGO guidelines [...] >60 mL/min [facility] Work Phone: Glucose [Mass/Vol] 86 mg/dL 70 - 100 mg/dL [employer] Work Phone: Interpretation and review of laboratory results Abnormal [employer] Work Phone: Potassium [Moles/Vol] 3.6 mmol/L 3.5 - 5.1 mmol/L [facility] Work Phone: Sodium [Moles/Vol] 140 mmol/L 135 - 145 mmol/L [facility] Work Phone: Urea nitrogen (BldV) [Mass/Vol] 15 mg/dL 7 - 20 mg/dL [facility] Work Phone: Test Performed by [facility], [address] [place] [id number] [facility] Work Phone: [facility] Work Phone: CBCOrdered By: Shana crowley on 11-26-2020 Hematocrit (Bld) [Volume fraction] 39.4 % Low 40.0 - 52.0 % [facility] Work Phone: Hemoglobin.gastroint estinal spec 1 Ql (Stl) 13.4 g/dL 13.0 - 18.0 g/dL [facility] Work Phone: Comment on above: REPEATED Interpretation and review of laboratory results Abnormal [facility] Work Phone: MCH (RBC) [Entitic mass] 31.1 pg 26.0 - 34.0 pg [facility] Work Phone: MCHC (RBC) [Mass/Vol] 34.0 % 32.0 - 36.0 % [facility] Work Phone: MCV (RBC) [Entitic vol] 91.4 fL 80.0 - 98.0 fL [facility] Work Phone: Platelet distribution width (Bld) [Ratio] 12.4 % 11.5 - 14.5 % [facility] Work Phone: Platelet mean volume (Bld) [Entitic vol] 8.5 fL 7.4 - 10.4 fL [facility] Work Phone: Platelets (Bld) [#/Vol] 183 10*3/uL 140 - 440 10*3/uL [employer] Work Phone: RBC (Bld) [#/Vol] 4.31 10*6/uL Low 4.40 - 5.9 0 10*6/uL [employer] [facility] Work Phone: WBC (Bld) [#/Vol] 6.2 10*3/uL 3.6 - 10.7 10*3/uL [employer] Work Phone: Test Performed by [facility] [employer] [facility], [address] [place] [id number] Host [facility] Work Phone: Host [facility] Work Phone: ECHOCARDIOGRAM LIMITEDOrdere d By: Saran Day on 11-26-2020 LIMITED TRANSTHORACI C ECHOCARDIOGRAM Perioperative - TAVR PATIENT: Christopher Silva STUDY DATE: 11/26/2020 : 1955 AGE: 65 HT/WT: 177.8 cm (70 139.3 kg (306.4 in) lb) GENDER: M BP: 147 / 100 LOCATION: [facility] PATIENT Inpatient main STATUS: *ORDERING PHYSICIAN: * Saran Day MD *READING PHYSICIAN: * Sarah, YudelkaWATER RESOURCE ENGINEERING SPECIALIST: * Jessica León MD [facility] INDICATIONS: Aortic stenosis/ TAVR. HISTORY: Transcatheter aortic [...] Mau Smith MD 11/26/2020 09:20 Prior Signatures: Host Committee Work Phone: Raymundo, [employer] Incoming Cardiology Results From Merge/Anupam - 11/26/2020 9:20 AM EDT LIMITED TRANSTHORACIC ECHOCARDIOGRAM Perioperative - TAVR PATIENT: Christopher Silva STUDY DATE: 11/26/2020 : 1955 AGE: 65 HT/WT: 177.8 cm (70 139.3 kg (306.4 in) lb) GENDER: M BP: 147 / 100 LOCATION: [facility] PATIENT Inpatient main STATUS: *ORDERING PHYSICIAN: * Saran Day MD *READING PHYSICIAN: * Sarah, *WATER RESOURCE ENGINEERING SPECIALIST: * Jessica León MD [facility] INDICATIONS: Aortic stenosis/ TAVR. HISTORY: Transcatheter aortic [...] Mau Smith MD 11/26/2020 09:20 Prior Signatures: Host Committee Work Phone: Host [employer] Work Phone: OPERATIVE REPORTOrdered By: 3m Scanning on 11-26-2020 ERN Phone: Laboratory - Microbiology an d Antimicrobial susceptibility Bacteria identified Cx Nom (Bld) No growth in 5 days. [facility] Work Phone: No Panel Information Nasal Screen MRSA/MSSA [facility] Work Phone: Vital Signs Date Time Vital Sign Value Performing Clinician Faci lity 12-13-2024 06:27-0400 Body height 175.[address] Aury Schneider DO Work Phone: [facility] 12-13-2024 06:27-0400 Body mass index (BMI) [Ratio] 46.3 kg/m2 Dr. Aury Schneider DO Work Phone: [facility] 12-13-2024 06:27-0400 Body weight 142.[address] Aury Schneider DO Work Phone: [facility] 12-13-2024 06:27-0400 Diastolic blood pressure 83 mm[Hg] Dr. Aury Schneider DO Work Phone: [facility] 12-13-2024 06:27-0400 Heart rate 95 /min Dr. Aury Schneider DO Work Phone: [facility] 12-13-2024 06:27-0400 Respiratory rate 20 /min Dr. Aury Schneider DO Work Phone: [facility] 12-13-2024 06:27-0400 SaO2% (BldA) [Mass fraction] 94 % Dr. Aury Schneider DO Work Phone: [facility] 12-13-2024 06:27-0400 Systolic blood pressure 154 mm[Hg] Dr. Aury Schneider DO Work Phone: [facility] 11-02-2024 09:03-0400 Body temperature 97.8 [degF] Dr. uAry Schneider DO Work Phone: [facility] 11-02-2024 09:03-0400 Body weight 146.[address] Aury Schneider DO Work Phone: [facility] 11-02-2024 09:03-0400 Diastolic blood pressure 73 mm[Hg] Dr. Aury Schneider DO Work Phone: [facility] 11-02-2024 09:03-0400 Heart rate 85 /min Dr. Aury Schneider DO Work Phone: [facility] 11-02-2024 09:03-0400 Respiratory rate 15 /min Dr. Aury Schneider DO Work Phone: [facility] 11-02-2024 09:03-0400 SaO2% (BldA) [Mass fraction] 98 % Dr. Aury Schneider DO Work Phone: [facility] 11-02-2024 09:03-0400 Systolic blood pressure 107 mm[Hg] Dr. Aury Schneider DO Work Phone: [facility] 10-14-2024 08:13-0400 Body height 175.[address] Aury Schneider DO Work Phone: [facility] 07-25-2024 12:24-0500 Body temperature 98.2 [degF] Dr. Aury Schneider DO Work Phone: [facility] 07-25-2024 12:24-0500 Heart rate 86 /min Dr. Aury Schneider DO Work Phone: [facility] 07-25-2024 12:24-0500 Respiratory rate 17 /min Dr. Aury Schneider DO Work Phone: [facility] 07-25-2024 12:24-0500 SaO2% (BldA) [Mass fraction] 95 % Dr. Aury Schneider DO Work Phone: [facility] 05-23-2024 10:10-0500 Diastolic Blood Pressure Non-Invasive 72 mm[Hg] DR THOMAS IBRAHIM MD [facility] 05-23-2024 10:10-0500 Respiratory rate 17 /min DR THOMAS IBRAHIM MD [facility] 05-23-2024 10:10-0500 Systolic Blood Pressure Non-Invasive 101 mm[Hg] DR THOMAS IBRAHIM MD [facility] 05-23-2024 10:05-0500 Diastolic Blood Pressure Non-Invasive 61 mm[Hg] DR THOMAS IBRAHIM MD [facility] 05-23-2024 10:05-0500 Heart rate 62 /min DR THOMAS IBRAHIM MD [facility] 05-23-2024 10:05-0500 Respiratory rate 16 /min DR THOMAS IBRAHIM MD [facility] 05-23-2024 10:05-0500 Systolic Blood Pressure Non-Invasive 97 mm[Hg] DR THOMAS IBRAHIM MD [facility] 05-23-2024 10:01-0500 Diastolic Blood Pressure Non-Invasive 61 mm[Hg] DR THOMAS IBRAHIM MD [facility] 05-23-2024 10:01-0500 Heart rate 68 /min DR THOMAS IBRAHIM MD [facility] 05-23-2024 10:01-0500 Respiratory rate 16 /min DR THOMAS IBRAHIM MD [facility] 05-23-2024 10:01-0500 Systolic Blood Pressure Non-Invasive 88 mm[Hg] DR THOMAS IBRAHIM MD [facility] 05-23-2024 09:54-0500 Heart rate 75 /min DR THOMAS IBRAHIM MD [facility] 05-23-2024 09:42-0500 Body temperature 97.7 [degF] DR THOMAS IBRAHIM MD [facility] 05-23-2024 09:40-0500 Respiratory Rate - Anes 0 br/min DR THOMAS IBRAHIM MD [facility] 05-23-2024 09:35-0500 Respiratory Rate - Anes 21 br/min DR THOMAS IBRAHIM MD [facility] 05-23-2024 09:30-0500 Respiratory Rate - Anes 10 br/min DR THOMAS IBRAHIM MD [facility] 05-23-2024 07:54-0500 Body height [address] THOMAS IBRAHIM MD [facility] 05-23-2024 07:54-0500 Body temperature 97.52 [degF] DR THOMAS IBRAHIM MD [facility] 05-23-2024 07:54-0500 Body weight 142.[address] THOMAS IBRAHIM MD [facility] 05-23-2024 07:54-0500 Heart rate 69 /min DR THOMAS IBRAHIM MD [facility] 05-23-2024 07:45-0500 Body height [address] THOMAS IBRAHIM MD [facility] 09-24-2023 13:17-0400 Body temperature 97.5 [degF] Dr. Aury Schneider Work Phone: [facility] 09-24-2023 13:17-0400 Diastolic blood pressure 60 mm[Hg] Dr. Aury Schneider Work Phone: [facility] 09-24-2023 13:17-0400 Heart rate 68 /min Dr. Aury Schneider Work Phone: [facility] 09-24-2023 13:17-0400 Respiratory rate 16 /min Dr. Aury Schneider Work Phone: [facility] 09-24-2023 13:17-0400 SaO2% (BldA) [Mass fraction] 94 % Dr. Aury Schneider Work Phone: [facility] 09-24-2023 13:17-0400 Systolic blood pressure 107 mm[Hg] Dr. Aury Schneider Work Phone: [facility] 09-24-2023 08:11-0400 Body height 175.[address] Aury Schneider Work Phone: [facility] 09-24-2023 08:11-0400 Body mass index (BMI) [Ratio] 44.7 kg/m2 Dr. Aury Schneider Work Phone: [facility] 09-24-2023 08:11-0400 Body weight 137.[address] Aury Schneider Work Phone: [facility] 09-18-2023 09:06-0500 Body mass index (BMI) [Ratio] 47 kg/m2 Dr. Aury Schneider Work Phone: [facility] 09-18-2023 09:06-0500 Body weight 140.[address] Aury Schneider Work Phone: [facility] 09-18-2023 09:06-0500 Diastolic blood pressure 78 mm[Hg] Dr. Aury Schneider Work Phone: [facility] 09-18-2023 09:06-0500 Heart rate 73 /min Dr. Aury Schneider Work Phone: [facility] 09-18-2023 09:06-0500 Respiratory rate 20 /min Dr. Aury Schneider Work Phone: [facility] 09-18-2023 09:06-0500 SaO2% (BldA) [Mass fraction] 96 % Dr. Aury Schneider Work Phone: [facility] 09-18-2023 09:06-0500 Systolic blood pressure 133 mm[Hg] Dr. Aury Schneider Work Phone: [facility] 09-11-2023 02:33-0500 Body temperature 97.8 [degF] Dr. Aury Schneider Work Phone: [facility] 09-11-2023 02:33-0500 Diastolic blood pressure 62 mm[Hg] Dr. Aury Schneider Work Phone: [facility] 09-11-2023 02:33-0500 Heart rate 73 /min Dr. Aury Schneider Work Phone: [facility] 09-11-2023 02:33-0500 Respiratory rate 16 /min Dr. Aury Schneider Work Phone: [facility] 09-11-2023 02:33-0500 SaO2% (BldA) [Mass fraction] 96 % Dr. Aury Schneider Work Phone: [facility] 09-11-2023 02:33-0500 Systolic blood pressure 112 mm[Hg] Dr. Aury Schneider Work Phone: [facility] 09-10-2023 22:51-0500 Body height 172.[address] Aury Schneider Work Phone: [facility] 09-10-2023 22:51-0500 Body mass index (BMI) [Ratio] 47 kg/m2 Dr. Aury Schneider Work Phone: [facility] 09-10-2023 22:51-0500 Body weight 140.[address] Aury Schneider Work Phone: [facility] 08-24-2023 09:11-0500 Body temperature 98.4 [degF] Dr. Aury Schneider Work Phone: [facility] 08-24-2023 09:11-0500 Diastolic blood pressure 86 mm[Hg] Dr. Aury Schneider Work Phone: [facility] 08-24-2023 09:11-0500 Heart rate 62 /min Dr. Aury Schneider Work Phone: [facility] 08-24-2023 09:11-0500 Respiratory rate 14 /min Dr. Aury Schneider Work Phone: [facility] 08-24-2023 09:11-0500 SaO2% (BldA) [Mass fraction] 95 % Dr. Aury Schneider Work Phone: [facility] 08-24-2023 09:11-0500 Systolic blood pressure 140 mm[Hg] Dr. Aury Schneider Work Phone: [facility] 05-12-2023 10:45-0400 Body height 172.[address] Aury Schneider Work Phone: [facility] 05-12-2023 10:40-0400 Body mass index (BMI) [Ratio] 43.9 kg/m2 Dr. Aury Schneider Work Phone: [facility] 05-12-2023 10:40-0400 Body weight 131.[address] Aury Schneider Work Phone: [facility] 05-12-2023 10:40-0400 Diastolic blood pressure 67 mm[Hg] Dr. Aury Schneider Work Phone: [facility] 05-12-2023 10:40-0400 Heart rate 57 /min Dr. Aury Schneider Work Phone: [facility] 05-12-2023 10:40-0400 Respiratory rate 14 /min Dr. Aury Schneider Work Phone: [facility] 05-12-2023 10:40-0400 Systolic blood pressure 106 mm[Hg] Dr. Aury Schneider Work Phone: [facility] 04-08-2023 10:26-0400 Body mass index (BMI) [Ratio] 45.3 kg/m2 Dr. Aury Schneider Work Phone: [facility] 04-08-2023 10:26-0400 Body weight 135.[address] Aury Schneider Work Phone: [facility] 04-08-2023 10:26-0400 Diastolic blood pressure 81 mm[Hg] Dr. Aury Schneider Work Phone: [facility] 04-08-2023 10:26-0400 Heart rate 57 /min Dr. Aury Schneider Work Phone: [facility] 04-08-2023 10:26-0400 Respiratory rate 16 /min Dr. Aury Schneider Work Phone: [facility] 04-08-2023 10:26-0400 SaO2% (BldA) [Mass fraction] 93 % Dr. Aury Schneider Work Phone: [facility] 04-08-2023 10:26-0400 Systolic blood pressure 132 mm[Hg] Dr. Aury Schneider Work Phone: [facility] 03-20-2023 12:34-0400 Body temperature 98.2 [degF] Dr. Aury Schneider Work Phone: [facility] 03-20-2023 12:34-0400 Diastolic blood pressure 72 mm[Hg] Dr. Auyr Schneider Work Phone: [facility] 03-20-2023 12:34-0400 Heart rate 72 /min Dr. Aury Schneider Work Phone: [facility] 03-20-2023 12:34-0400 Respiratory rate 18 /min Dr. Aury Schneider Work Phone: [facility] 03-20-2023 12:34-0400 SaO2% (BldA) [Mass fraction] 97 % Dr. Aury Schneider Work Phone: [facility] 03-20-2023 12:34-0400 Systolic blood pressure 125 mm[Hg] Dr. Aury Schneider Work Phone: [facility] 03-06-2023 10:21-0400 Body temperature 99.4 [degF] Dr. Aury Schneider Work Phone: [facility] 03-06-2023 10:21-0400 Diastolic blood pressure 78 mm[Hg] Dr. Aury Schneider Work Phone: [facility] 03-06-2023 10:21-0400 Heart rate 53 /min Dr. Aury Schneider Work Phone: [facility] 03-06-2023 10:21-0400 Respiratory rate 16 /min Dr. Aury Schneider Work Phone: [facility] 03-06-2023 10:21-0400 SaO2% (BldA) [Mass fraction] 92 % Dr. Aury Schneider Work Phone: [facility] 03-06-2023 10:21-0400 Systolic blood pressure 126 mm[Hg] Dr. Aury Schneider Work Phone: [facility] 02-20-2023 08:15-0400 Body temperature 98.3 [degF] Dr. Aury Schneider Work Phone: [facility] 02-20-2023 08:15-0400 Diastolic blood pressure 76 mm[Hg] Dr. Aury Schneider Work Phone: [facility] 02-20-2023 08:15-0400 Heart rate 77 /min Dr. Aury Schneider Work Phone: [facility] 02-20-2023 08:15-0400 Respiratory rate 17 /min Dr. Aury Schneider Work Phone: [facility] 02-20-2023 08:15-0400 SaO2% (BldA) [Mass fraction] 92 % Dr. Aury Schneider Work Phone: [facility] 02-20-2023 08:15-0400 Systolic blood pressure 119 mm[Hg] Dr. Aury Schneider Work Phone: [facility] 01-09-2023 02:11-0400 Diastolic blood pressure 60 mm[Hg] Dr. Aury Schneider Work Phone: [facility] 01-09-2023 02:11-0400 Heart rate 78 /min Dr. Aury Schneider Work Phone: [facility] 01-09-2023 02:11-0400 Respiratory rate 18 /min Dr. Aury Schneider Work Phone: [facility] 01-09-2023 02:11-0400 Systolic blood pressure 102 mm[Hg] Dr. Aury Schneider Work Phone: [facility] 01-08-2023 22:37-0400 Body height 172.[address] Aury Schneider Work Phone: [facility] 01-08-2023 22:37-0400 Body mass index (BMI) [Ratio] 47 kg/m2 Dr. Aury Schneider Work Phone: [facility] 01-08-2023 22:37-0400 Body temperature 97.6 [degF] Dr. Aury Schneider Work Phone: [facility] 01-08-2023 22:37-0400 Body weight 140.[address] Aury Schneider Work Phone: [facility] 01-08-2023 22:37-0400 SaO2% (BldA) [Mass fraction] 95 % Dr. Aury Schneider Work Phone: [facility] 12-09-2022 08:25-0400 Body temperature 99.4 [degF] Dr. Aury Schneider Work Phone: [facility] 12-09-2022 08:25-0400 Diastolic blood pressure 66 mm[Hg] Dr. Aury Schneider Work Phone: [facility] 12-09-2022 08:25-0400 Heart rate 78 /min Dr. Aury Schneider Work Phone: [facility] 12-09-2022 08:25-0400 Respiratory rate 16 /min Dr. Aury Schneider Work Phone: [facility] 12-09-2022 08:25-0400 SaO2% (BldA) [Mass fraction] 95 % Dr. Aury Schneider Work Phone: [facility] 12-09-2022 08:25-0400 Systolic blood pressure 107 mm[Hg] Dr. Aury Schneider Work Phone: [facility] 12-09-2022 07:27-0400 Body height 173.[address] Aury Schneider Work Phone: [facility] 12-09-2022 07:27-0400 Body mass index (BMI) [Ratio] 46.9 kg/m2 Dr. Aury Schnieder Work Phone: [facility] 12-09-2022 07:27-0400 Body weight 142.[address] Aury Schneider Work Phone: [facility] 12-04-2022 08:27-0400 Body mass index (BMI) [Ratio] 47 kg/m2 Dr. Aury Schneider Work Phone: [facility] 12-04-2022 08:27-0400 Body weight 140.[address] Aury Schneider Work Phone: [facility] 09-25-2022 17:25-0400 Diastolic blood pressure 78 mm[Hg] Dr. Aury Schneider Work Phone: [facility] 09-25-2022 17:25-0400 Systolic blood pressure 156 mm[Hg] Dr. Aury Schneider Work Phone: [facility] 09-25-2022 17:19-0400 Body temperature 98.4 [degF] Dr. Aury Schneider Work Phone: [facility] 09-25-2022 17:19-0400 Heart rate 94 /min Dr. Aury Schneider Work Phone: [facility] 09-25-2022 17:19-0400 Respiratory rate 18 /min Dr. Aury Schneider Work Phone: [facility] 09-25-2022 17:19-0400 SaO2% (BldA) [Mass fraction] 96 % Dr. Aury Schneider Work Phone: [facility] 06-27-2022 15:00-0500 Heart rate 84 /min Dr. Aury Schneider Work Phone: [facility] Work Phone: 06-27-2022 13:45-0500 Body height 172.[address] Aury Schneider Work Phone: [facility] Work Phone: 06-27-2022 13:45-0500 Body weight [address] Aury Schneider Work Phone: [facility] Work Phone: 06-27-2022 11:34-0500 Body temperature 97.9 [degF] Dr. Aury Schneider Work Phone: [facility] Work Phone: 06-27-2022 11:34-0500 Diastolic blood pressure 78 mm[Hg] Dr. Aury Schneider Work Phone: [facility] Work Phone: 06-27-2022 11:34-0500 Respiratory rate 14 /min Dr. Aury Schneider Work Phone: [facility] Work Phone: 06-27-2022 11:34-0500 SaO2% (BldA) [Mass fraction] 95 % Dr. Aury Schneider Work Phone: [facility] Work Phone: 06-27-2022 11:34-0500 Systolic blood pressure 122 mm[Hg] Dr. Aury Schneider Work Phone: [facility] Work Phone: 06-27-2022 05:20-0500 Inhaled oxygen concentration 21 % Dr. Aury Schneider Work Phone: [facility] Work Phone: 06-26-2022 22:44-0500 Body mass index (BMI) [Ratio] 45.6 kg/m2 Dr. Aury Schneider Work Phone: [facility] Work Phone: 06-26-2022 22:09-0500 Body temperature 98.4 [degF] Dr. Aury Schneider Work Phone: [facility] Work Phone: 06-26-2022 22:09-0500 Diastolic blood pressure 77 mm[Hg] Dr. Aury Schneider Work Phone: [facility] Work Phone: 06-26-2022 22:09-0500 Heart rate 87 /min Dr. Aury Schneider Work Phone: [facility] Work Phone: 06-26-2022 22:09-0500 Respiratory rate 18 /min Dr. Aury Schneider Work Phone: [facility] Work Phone: 06-26-2022 22:09-0500 SaO2% (BldA) [Mass fraction] 99 % Dr. Aury Schneider Work Phone: [facility] Work Phone: 06-26-2022 22:09-0500 Systolic blood pressure 105 mm[Hg] Dr. Aury Schneider Work Phone: [facility] Work Phone: 06-26-2022 18:00-0500 Body height 172.[address] Aury Schneider Work Phone: [facility] Work Phone: 06-26-2022 18:00-0500 Body mass index (BMI) [Ratio] 46 kg/m2 Dr. Aury Schneider Work Phone: [facility] Work Phone: 06-26-2022 18:00-0500 Body weight 137.[address] Aury Schneider Work Phone: [facility] Work Phone: 06-13-2022 13:27-0500 Body temperature 97.3 [degF] Dr. Aury Schneider Work Phone: [facility] Work Phone: 06-13-2022 13:27-0500 Diastolic blood pressure 59 mm[Hg] Dr. Aury Schneider Work Phone: [facility] Work Phone: 06-13-2022 13:27-0500 Heart rate 70 /min Dr. Aury Schneider Work Phone: [facility] Work Phone: 06-13-2022 13:27-0500 Respiratory rate 18 /min Dr. Aury Schneider Work Phone: [facility] Work Phone: 06-13-2022 13:27-0500 SaO2% (BldA) [Mass fraction] 97 % Dr. Aury Schneider Work Phone: [facility] Work Phone: 06-13-2022 13:27-0500 Systolic blood pressure 104 mm[Hg] Dr. Aury Schneider Work Phone: [facility] Work Phone: 06-13-2022 07:42-0500 Inhaled oxygen flow rate 3 L/min Dr. Aury Schneider Work Phone: [facility] Work Phone: 06-12-2022 06:00-0500 Body height 172.[address] Aury Schneider Work Phone: [facility] Work Phone: 06-12-2022 06:00-0500 Body mass index (BMI) [Ratio] 46.3 kg/m2 Dr. Aury Schneider Work Phone: [facility] Work Phone: 06-12-2022 06:00-0500 Body weight 138.[address] Aury Schneider Work Phone: [facility] Work Phone: 05-15-2022 09:41-0400 Diastolic blood pressure 80 mm[Hg] Dr. Aury Schneider Work Phone: [facility] Work Phone: 05-15-2022 09:41-0400 Systolic blood pressure 140 mm[Hg] Dr. Aury Schneider Work Phone: [facility] Work Phone: 05-15-2022 09:41-0400 Body mass index (BMI) [Ratio] 44.4 kg/m2 Dr. Aury Schneider Work Phone: [facility] Work Phone: 05-15-2022 09:41-0400 Body weight 140.[address] Aury Schneider Work Phone: [facility] Work Phone: 05-15-2022 09:41-0400 Heart rate 79 /min Dr. Aury Schneider Work Phone: [facility] Work Phone: 05-15-2022 09:41-0400 Respiratory rate 22 /min Dr. Aury Schneider Work Phone: [facility] Work Phone: 05-15-2022 09:41-0400 SaO2% (BldA) [Mass fraction] 97 % Dr. Aury Schneider Work Phone: [facility] Work Phone: 04-09-2022 23:29-0400 Diastolic blood pressure 71 mm[Hg] Dr. Aury Schneider Work Phone: [facility] Work Phone: 04-09-2022 23:29-0400 Heart rate 71 /min Dr. Aury Schneider Work Phone: [facility] Work Phone: 04-09-2022 23:29-0400 Respiratory rate 18 /min Dr. Aury Schneider Work Phone: [facility] Work Phone: 04-09-2022 23:29-0400 SaO2% (BldA) [Mass fraction] 96 % Dr. Aury Schneider Work Phone: [facility] Work Phone: 04-09-2022 23:29-0400 Systolic blood pressure 152 mm[Hg] Dr. Aury Schneider Work Phone: [facility] Work Phone: 04-09-2022 22:28-0400 Body height 177.[address] Aury Schneider Work Phone: [facility] Work Phone: 04-09-2022 22:28-0400 Body mass index (BMI) [Ratio] 42.9 kg/m2 Dr. Aury Schneider Work Phone: [facility] Work Phone: 04-09-2022 22:28-0400 Body temperature 97.8 [degF] Dr. Aury Schneider Work Phone: [facility] Work Phone: 04-09-2022 22:28-0400 Body weight 135.[address] Aury Schneider Work Phone: [facility] Work Phone: 03-01-2022 17:48-0400 Body temperature 98.8 [degF] Dr. Aury Schneider Work Phone: [facility] Work Phone: 03-01-2022 17:48-0400 Heart rate 72 /min Dr. Aury Schneider Work Phone: [facility] Work Phone: 03-01-2022 17:48-0400 Respiratory rate 16 /min Dr. Aury Schneider Work Phone: [facility] Work Phone: 03-01-2022 17:48-0400 SaO2% (BldA) [Mass fraction] 99 % Dr. Aury Schneider Work Phone: [facility] Work Phone: 03-01-2022 15:13-0400 Diastolic blood pressure 91 mm[Hg] Dr. Aury Schneider Work Phone: [facility] Work Phone: 03-01-2022 15:13-0400 Systolic blood pressure 148 mm[Hg] Dr. Aury Schneider Work Phone: [facility] Work Phone: 03-01-2022 15:11-0400 Body height 177.[address] Aury Schneider Work Phone: [facility] Work Phone: 03-01-2022 15:11-0400 Body mass index (BMI) [Ratio] 43.3 kg/m2 Dr. Aury Schneider Work Phone: [facility] Work Phone: 03-01-2022 15:11-0400 Body weight 136.[address] Aury Schneider Work Phone: [facility] Work Phone: 01-11-2022 10:29-0400 Body mass index (BMI) [Ratio] 45.3 kg/m2 Dr. Aury Schneider Work Phone: [facility] Work Phone: 01-11-2022 10:29-0400 Body temperature 99.2 [degF] Dr. Aury Schneider Work Phone: [facility] Work Phone: 01-11-2022 10:29-0400 Body weight 135.[address] Aury Schneider Work Phone: [facility] Work Phone: 01-11-2022 10:29-0400 Diastolic blood pressure 86 mm[Hg] Dr. Aury Schneider Work Phone: [facility] Work Phone: 01-11-2022 10:29-0400 Heart rate 67 /min Dr. Aury Schneider Work Phone: [facility] Work Phone: 01-11-2022 10:29-0400 Respiratory rate 18 /min Dr. Aury Schneider Work Phone: [facility] Work Phone: 01-11-2022 10:29-0400 SaO2% (BldA) [Mass fraction] 97 % Dr. Aury Schneider Work Phone: [facility] Work Phone: 01-11-2022 10:29-0400 Systolic blood pressure 122 mm[Hg] Dr. Aury Schneider Work Phone: [facility] Work Phone: 12-26-2021 08:03-0400 Body temperature 98.7 [degF] Dr. Aury Schneider Work Phone: [facility] Work Phone: 12-26-2021 08:03-0400 Diastolic blood pressure 82 mm[Hg] Dr. Aury Schneider Work Phone: [facility] Work Phone: 12-26-2021 08:03-0400 Heart rate 76 /min Dr. Aury Schneider Work Phone: [facility] Work Phone: 12-26-2021 08:03-0400 Respiratory rate 16 /min Dr. Aury Schneider Work Phone: [facility] Work Phone: 12-26-2021 08:03-0400 SaO2% (BldA) [Mass fraction] 96 % Dr. Aury Schneider Work Phone: [facility] Work Phone: 12-26-2021 08:03-0400 Systolic blood pressure 142 mm[Hg] Dr. Aury Schneider Work Phone: [facility] Work Phone: 11-04-2021 08:47-0400 Body mass index (BMI) [Ratio] 42.8 kg/m2 Dr. Aury Schneider Work Phone: [facility] Work Phone: 11-04-2021 08:47-0400 Body weight 127.[address] Aury Schneider Work Phone: [facility] Work Phone: 10-06-2021 16:40-0400 Body temperature 98.4 [degF] Dr. Aury Schneider Work Phone: [facility] Work Phone: 10-06-2021 16:40-0400 Diastolic blood pressure 78 mm[Hg] Dr. Aury Schneider Work Phone: [facility] Work Phone: 10-06-2021 16:40-0400 Heart rate 66 /min Dr. Aury Schneider Work Phone: [facility] Work Phone: 10-06-2021 16:40-0400 Respiratory rate 16 /min Dr. Aury Schneider Work Phone: [facility] Work Phone: 10-06-2021 16:40-0400 SaO2% (BldA) [Mass fraction] 98 % Dr. Aury Schneider Work Phone: [facility] Work Phone: 10-06-2021 16:40-0400 Systolic blood pressure 124 mm[Hg] Dr. Aury Schneider Work Phone: [facility] Work Phone: 10-06-2021 13:35-0400 Body height 180.[address] Aury Schneider Work Phone: [facility] Work Phone: 10-06-2021 13:35-0400 Body mass index (BMI) [Ratio] 42.7 kg/m2 Dr. Aury Schneider Work Phone: [facility] Work Phone: 10-06-2021 13:35-0400 Body weight 139.[address] Aury Schneider Work Phone: [facility] Work Phone: 08-03-2021 12:46-0500 Body temperature 99.1 [degF] Dr. Aury Schneider Work Phone: [facility] Work Phone: 08-03-2021 12:46-0500 Diastolic blood pressure 80 mm[Hg] Dr. Aury Schneider Work Phone: [facility] Work Phone: 08-03-2021 12:46-0500 Heart rate 89 /min Dr. Aury Schneider Work Phone: [facility] Work Phone: 08-03-2021 12:46-0500 Respiratory rate 16 /min Dr. Aury Schneider Work Phone: [facility] Work Phone: 08-03-2021 12:46-0500 SaO2% (BldA) [Mass fraction] 96 % Dr. Aury Schneider Work Phone: [facility] Work Phone: 08-03-2021 12:46-0500 Systolic blood pressure 128 mm[Hg] Dr. Aury Schneider Work Phone: [facility] Work Phone: 11-27-2020 10:00-0400 Diastolic blood pressure 68 mm[Hg] Saran Day MD Work Phone: [facility] Work Phone: 11-27-2020 10:00-0400 Heart rate 47 /min Saran Day MD Work Phone: [facility] Work Phone: 11-27-2020 10:00-0400 Respiratory rate 15 /min Saran Day MD Work Phone: [facility] Work Phone: 11-27-2020 10:00-0400 SaO2% (BldA) [Mass fraction] 95 % Saran Day MD Work Phone: [facility] Work Phone: 11-27-2020 10:00-0400 Systolic blood pressure 90 mm[Hg] Saran Day MD Work Phone: [facility] Work Phone: 11-27-2020 04:00-0400 Body temperature 98.4 [degF] Saran Day MD Work Phone: [facility] Work Phone: 11-26-2020 05:51-0400 Body height 177.8 cm Saran Day MD Work Phone: [facility] Work Phone: 11-26-2020 05:51-0400 Body mass index (BMI) [Ratio] 44.05 kg/m2 Saran Day MD Work Phone: [facility] Work Phone: 11-26-2020 05:51-0400 Body weight 139.25 kg Saran Day MD Work Phone: [facility] Work Phone: Encounters Encounter Date Encounter Type Care Provider Facility Start: 03-30-2025 ambulatory Aury Schneider Facility: [facility] Start: 03-28-2025 Encounter for other preprocedural examination Doug Jenkins [facility] Start: 03-08-2025 End: 03-08-[address] Aury Schneider DO Work Phone: -Cat Scan [facility] Start: 03-08-2025 End: 03-08-[address] Doug Jenkins DO -Cat Scan [facility] Work Phone: Start: 03-08-2025 End: 03-08-2025 ambulatory Aury Schneider Facility:[facility] Start: 02-16-2025 End: 02-16-[address] Aury Schneider DO Work Phone: [facility] Start: 02-16-2025 End: 02-16-2025 Patient encounter procedure Kena Ramirez -[facility] Work Phone: Start: 02-16-2025 End: 02-16-2025 ambulatory Aury Schneider Facility:[facility] Start: 02-09-2025 End: 02-09-2025 ambulatory AURY SCHNEIDER DO Facility:A Start: 01-03-2025 Non-patient / Non-visit Brittani YATES -[facility] Work Phone: Start: 01-03-2025 ambulatory Aury Schneider Facility: [facility] Start: 01-03-2025 Non-patient / Non-visit Dr. Dona CURTIS -[facility] Start: 01-03-2025 End: 01-03-[address] Aury Schneider DO Work Phone: -Cardiovascular Services Start: 01-03-2025 End: 01-03-2025 Patient encounter procedure Brittani Graham [employer]AGENT-C -Cardiovascular Services Work Phone: Start: 01-03-2025 End: 01-03-2025 ambulatory Aury Schneider Facility:[facility] Start: 12-19-2024 End: 12-19-2024 ambulatory KELSEY OTTO MD Facility:[facility] Start: 12-19-2024 End: 12-19-2024 SAME DAY STAY KELSEY OTTO MD [facility] Start: 12-14-2024 End: 12-18-2024 ambulatory AURY SCHNEIDER DO Facility:A Start: 12-14-2024 End: 12-18-2024 Encounter for other preprocedural examination RENALDO ORDONEZ PART TIME RECEPTIONIST-QUALITY ASSURANCE MONITOR Facility:A Start: 12-13-2024 Encounter for other preprocedural examination Brittani Graham [facility] Start: 12-13-2024 End: 12-13-2024 Patient encounter procedure Brittani Graham [employer]AGENT-C -[facility] Work Phone: Start: 12-13-2024 End: 12-13-2024 Preoperative state Brittani Graham NPC [facility] Start: 12-13-2024 End: 12-13-[address] Aury Schneider DO Work Phone: [facility] Work Phone: Start: 12-13-[address] Aury Schneider DO Work Phone: [facility] Start: 12-09-2024 End: 12-09-2024 Admission to establishment KELSEY OTTO MD [facility] Start: 12-09-2024 End: 12-09-2024 ambulatory KELSEY OTTO MD Facility:[facility] Start: 11-14-2024 Non-patient / Non-visit Dr. Akbar chen MD -[facility] Start: 11-14-2024 End: 11-14-[address] Aury Schneider DO Work Phone: [facility] Work Phone: Start: 11-14-2024 End: 11-14-2024 Patient encounter procedure Ely CERVANTES -Cardiovascular Services Work Phone: Start: 11-14-2024 End: 11-14-2024 ambulatory Aury Schneider Facility:[facility] Start: 11-02-2024 End: 11-02-2024 Patient encounter procedure Ely CERVANTES -[facility] Work Phone: Start: 11-02-2024 End: 11-02-2024 ambulatory Aury Schneider Facility:[facility] Start: 08-12-2024 End: 08-16-2024 ambulatory AURY SCHNEIDER DO Facility:[facility] Start: 08-12-2024 End: 08-16-2024 Encounter for general adult medical examination without abnormal findings AURY SCHNEIDER DO Facility:[facility] Start: 07-29-2024 ambulatory Aury Schneider Facility: [facility] Start: 07-25-2024 End: 07-25-2024 Patient encounter procedure Leo CERVANTES [facility] Work Phone: Start: 07-25-2024 End: 07-25-2024 ambulatory Aury Schneider Facility:[facility] Start: 07-08-2024 ambulatory Efewongbe Oleghe OLS Fa cility:[facility] Start: 07-01-2024 ambulatory Efewlockwoodbe Oleghe OLS Fa cility:[facility] Start: 06-24-2024 ambulatory Efewongbe Oleghe OLS Fa cility:[facility] Start: 06-23-2024 End: 06-23-2024 ambulatory Jelly Bonilla NP Facility:[facility] Start: 06-17-2024 ambulatory AURY SCHNEIDER DO Faci lity:[facility] Start: 06-17-2024 End: 06-17-2024 ambulatory Aury Schneider Facility:[facility] Start: 06-10-2024 ambulatory Efewongbe Oleghe OLS Fa cility:[facility] Start: 06-07-2024 End: 06-07-2024 ambulatory Aury Schneider Facility:[facility] Start: 06-02-2024 End: 06-02-2024 ambulatory Jelly Jerniganisadora PUGH Facility:[facility] Start: 06-02-2024 End: 06-02-2024 ambulatory Hernan ABDI Facility:[facility] Start: 05-23-2024 End: 05-23-2024 ambulatory AURY SCHNEIDER DO Facility:[facility] Start: 05-23-2024 End: 05-23-[address] THOMAS IBRAHIM MD [facility] Start: 04-27-2024 End: 04-27-2024 ambulatory Richie Nuno Facility:[facility] Start: 04-22-2024 End: 04-22-2024 ambulatory Aury Schneider Facility:[facility] Start: 04-08-2024 End: 04-08-2024 Telephone encounter Taylor Steen MD Work Phone: [facility] Comment on above: Retirement Benefits Specialist - O ther; Reminder Call Start: 04-08-2024 ambulatory KONSTANTIN GOMEZ (Kya VIVEROS) STEPHANIE Facility:[facility] Start: 04-08-2024 End: 04-08-2024 Subsequent hospital visit by physician Xr [facility] Work Phone: Radiology Start: 04-06-2024 End: 04-11-2024 ambulatory Aury Schneider Facility:[facility] Start: 03-30-2024 End: 03-30-2024 Telephone encounter Paula Yin APRN.QUALITY ASSURANCE MONITOR Work Phone: [facility] Start: 03-08-2024 End: 03-12-2024 ambulatory RENALDO ORDONEZ PART TIME RECEPTIONIST-QUALITY ASSURANCE MONITOR Facility:A Start: 10-25-2023 Non-patient / Non-visit Dr. Abby Schneider Work Phone: [facility] Work Phone: Start: 10-23-2023 Non-patient / Non-visit Dr. Abby Schneider Work Phone: [facility] Start: 10-23-2023 End: 10-23-[address] Aury Schneider Work Phone: [facility] Work Phone: Start: 10-23-2023 End: 10-23-[address] Aury Schneider Work Phone: [facility] Work Phone: Start: 10-13-2023 Non-patient / Non-visit Dr. Abby Schneider Work Phone: [facility] Work Phone: Start: 10-13-2023 Non-patient / Non-visit Dr. Abby Schneider Work Phone: [facility] Start: 10-13-2023 End: 10-13-[address] Aury Schneider Work Phone: [facility] Work Phone: Start: 10-13-2023 End: 10-13-[address] Aury Schneider Work Phone: [facility] Work Phone: Start: 09-24-2023 End: 09-24-2023 Emergency department patient visit Dr. Aury Schneider Work Phone: [facility]Emer[facility] Work Phone: Start: 09-18-2023 End: 09-18-[address] Aury Schneider Work Phone: [facility] Work Phone: Start: 09-10-2023 End: 09-11-2023 Emergency department patient visit Dr. Aury Schneider Work Phone: [facility] Work Phone: Start: 08-24-2023 End: 08-24-[address] Aury Schneider Work Phone: [facility] Work Phone: Start: 07-27-2023 End: 07-31-2023 ambulatory AURY SCHNEIDER DO Facility:A Start: 07-27-2023 End: 07-31-2023 Encounter for general adult medical examination without abnormal findings AURY SCHNEIDER DO Facility:A Start: 05-12-2023 End: 05-12-[address] Aury Schneider Work Phone: [facility] Work Phone: Start: 04-08-2023 End: 04-08-[address] Aury Schneider Work Phone: [facility] Work Phone: Start: 04-03-2023 End: 04-03-[address] Aury Schneider Work Phone: [facility] Work Phone: Start: 04-03-2023 End: 04-03-[address] Aury Schneider Work Phone: [facility]Occupational Therapy Work Phone: Start: 03-20-2023 End: 03-20-[address] Aury Schneider Work Phone: [facility] Work Phone: Start: 03-06-2023 End: 03-06-[address] Aury Schneider Work Phone: [facility] Work Phone: Start: 02-20-2023 End: 02-20-[address] Aury Schneider Work Phone: [facility] Work Phone: Start: 01-08-2023 End: 01-09-2023 Emergency department patient visit Dr. Aury Schneider Work Phone: [facility] Work Phone: Start: 12-09-2022 Non-patient / Non-visit Dr. Abby Schneider Work Phone: [facility] Start: 12-09-2022 End: 12-09-2022 Admission to same day surgery center Dr. Aury Schneider Work Phone: [facility]Endoscopy Start: 12-09-2022 End: 12-09-[address] Aury Schneider Work Phone: [facility] Work Phone: Start: 12-04-2022 Non-patient / Non-visit Dr. Abby Schneider Work Phone: [facility] Start: 09-25-2022 End: 09-25-[address] Aury Schneider Work Phone: [facility] Start: 06-27-2022 Non-patient / Non-visit Dr. Abby Schneider Work Phone: [facility] Start: 06-27-2022 Non-patient / Non-visit Dr. Abby Schneider Work Phone: [facility] Start: 06-26-2022 Non-patient / Non-visit Dr. Abby Schneider Work Phone: [facility] Start: 06-26-2022 End: 06-27-2022 Evaluation and management of inpatient Dr. Aury Schneider Work Phone: [facility]Pro[facility] Start: 06-26-2022 Evaluation and management of inpatient Dr. Aury Schneider Work Phone: [facility] Start: 06-26-2022 Non-patient / Non-visit Dr. Abby Schneider Work Phone: [facility] Start: 06-12-2022 Non-patient / Non-visit Dr. Abby Schneider Work Phone: [facility] Start: 06-12-2022 End: 06-13-2022 Evaluation and management of [facility] Start: 06-12-2022 End: 06-13-[address] Aury Schneider Work Phone: [facility] Work Phone: Start: 05-15-2022 End: 05-15-[address] Aury Schneider Work Phone: [facility] Start: 04-30-2022 End: 04-30-[address] Aury Schneider Work Phone: [facility] Work Phone: Start: 04-30-2022 End: 04-30-[address] Aury Schneider Work Phone: [facility] Start: 04-09-2022 End: 04-09-2022 Emergency department patient [facility] Start: 03-01-2022 End: 03-01-2022 Emergency department patient visit Dr. Aury Schneider Work Phone: [facility] Start: 01-11-2022 End: 01-11-[address] Aury Schneider Work Phone: [facility] Start: 12-26-2021 Non-patient / Non-visit Dr. Abby Schneider Work Phone: [facility] Start: 12-26-2021 End: 12-26-[address] Aury Schneider Work Phone: [facility] Start: 11-28-2021 End: 11-28-2021 Subsequent hospital visit by physician Shana uHerta PART TIME RECEPTIONIST - QUALITY ASSURANCE MONITOR Work Phone: [facility] [address] Comment on above: Aortic valve stenosi s, etiology of cardiac valve disease unspecified Start: 11-04-2021 End: 11-04-[address] Aury Schneider Work Phone: [facility] Start: 10-06-2021 End: 10-06-2021 Emergency department patient visit Dr. Aury Schneider Work Phone: [facility] Start: 08-03-2021 End: 08-03-[address] Aury Schneider Work Phone: [facility] Start: 01-02-2021 End: 01-02-2021 Subsequent hospital visit by physician Shana Huerta PART TIME RECEPTIONIST - QUALITY ASSURANCE MONITOR Work Phone: [facility] [address] Comment on above: Aortic stenosis, sev ere Start: 11-26-2020 End: 11-27-2020 Evaluation and management of inpatient Saran Day MD Work Phone: [facility] Comment on above: Arrived Procedures Date Procedure Procedure Detail Performing Clinician Start: 03-08-2025 CT of upper limb wit hout contrast Dr. Aury Schneider DO Work Phone: Start: 02-16-2025 Assay of prostate sp ecific [...] agent Dr. Aury Schneider Work Phone: Start: 09-24-2023 CT cervical [...] otal arthroplasty of left shoulder Dr. Aury Schneider Work Phone: Start: 06-12-2022 Prosthetic arthropla sty [...] 2d w/wom-mode compl spec&colr d Shana Huerta PART TIME RECEPTIONIST - QUALITY ASSURANCE MONITOR Work Phone: Start: 11-04-2021 Plain x-ray of pelvi s and lower extremity Dr. Aury Schneider Work Phone: Start: 10-06-2021 CT of abdomen and pe lvis without contrast Dr. Aury Schneider Work Phone: Start: 01-02-2021 Echo tthrc r-t 2d w/wom-mode compl spec&colr d Shana Huerta PART TIME RECEPTIONIST - QUALITY ASSURANCE MONITOR Work Phone: Start: 11-27-2020 Echo tthrc r-t 2d w/wom-mode compl spec&colr d Shana Huerta PART TIME RECEPTIONIST - QUALITY ASSURANCE MONITOR Work Phone: Start: 11-27-2020 Ecg routine ecg w/le ast 12 lds w/i&r Shana Huerta PART TIME RECEPTIONIST - QUALITY ASSURANCE MONITOR Work Phone: Start: 11-27-2020 Basic metabolic pane l calcium total Shana Huerta PART TIME RECEPTIONIST - QUALITY ASSURANCE MONITOR Work Phone: Start: 11-26-2020 Basic metabolic pane l calcium total Shana Huerta PART TIME RECEPTIONIST - QUALITY ASSURANCE MONITOR Work Phone: Start: 11-26-2020 Ecg routine ecg w/le ast 12 lds w/i&r Shana Huerta PART TIME RECEPTIONIST - QUALITY ASSURANCE MONITOR Work Phone: Start: 11-26-2020 Echocardiography Saran Day [...] Comment on above: Right side, reconstr uction, [address] THOMAS MARTINEZ MD Comment on above: 1966 Bacteria identified in Blood by Culture Dr. Aury Schneider Work Phone: Decompression of med christian nerve DR THOMAS IBRAHIM MD Comment on above: Right wrist, 2000 Elbow region structu re (body structure) DR THOMAS IBRAHIM MD Comment on above: Left side, repair, 1 983 Electromagnetic radi ation in the microwave region (physical force) DR THOMAS IBRAHIM MD Comment on above: Treatment for prosta te, 2009 Fused structure (morphologic abnormality) DR THOMAS IBRAHIM MD Comment on above: L3-L4, 1984 Gingival structure ( body structure) DR THOMAS IBRAHIM MD Comment on above: Surgery on upper terrie k bilateral gum, 2010 Knee region structur e (body structure) DR THOMAS IBRAHIM MD Comment on above: Right knee, Bilatera l meniscectomies, 2003 Left knee, bilateral meniscectomies, [address] [...] DTaP/Tdap/Td vaccine (2 - Td or Tdap) [facility] Start: 03-17-2030 DTaP/Tdap/Td vaccine (2 - Td) DTaP/Tdap/Td vaccine (2 - Td) [facility] Work Phone: Start: 03-17-2030 Urine microalbumin profile DTa P,Tdap,Td Vaccine (2 - Td or Tdap) [facility] Start: 2028 RSV Vaccine (1 - 1-d ose 75+ series) RSV Vaccine (1 - 1-dose 75+ series) [facility] Start: 12-13-2024 Evaluation of diagno stic study results [facility] Start: 04-12-2024 End: 04-12-2024 Patient encounter procedure 04/12/2024 1:30 PM EDT Office Visit [facility] [address] [place] [id number] Alfredo Go MD [address] [facility] [place] [address] Lumbar spondylosis and radiculopathy, left leg sciatica Patient bring MRI from [facility] Xray being pushed from [facility] Comment on above: Lumbar spondylosis a nd radiculopathy, left leg sciatica Patient bring MRI from [facility] Xray being pushed from [facility] Start: 03-13-2024 Covid-19 Vaccine ( season) Covid-19 Vaccine () [facility] Start: 03-13-2024 Covid-19 Vaccine () Covid-19 Vaccine () [facility] Start: 03-13-2024 Influenza vaccination Influenz a Vaccine (#1) [facility] Start: 11-28-2023 Diabetes Screening Diabetes Screenin g [facility] Start: 09-24-2023 [facility] Start: 09-11-2023 [facility] Start: 07-13-2023 Advance Directive Discussion Advance Directive Discussion [facility] Start: 12-09-2022 Colsc flx w/rmvl of tumor polyp lesion snare tq COLONOSCOPY W/LESION REMOVAL [facility] Start: 12-09-2022 Patient discharge [facility] Start: 06-27-2022 Patient discharge [facility] Work Phone: Start: 06-27-2022 [facility] Work Phone: Start: 06-27-2022 Prothrombin time [facility] Work Phone: Start: 06-27-2022 Referral to computer terminal operator [facility] Work Phone: Start: 06-27-2022 Thyroid stimulating hormone measurement [facility] Work Phone: Start: 06-27-2022 [facility] Work Phone: Start: 06-27-2022 Continuous positive airway pressure ventilation treatment [facility] Work Phone: Start: 06-27-2022 Application of intermittent pneumatic compression device [facility] Work Phone: Start: 06-26-2022 End: 06-27-2022 Following clinical pathway protocol [facility] Work Phone: Start: 06-26-2022 Assessment of risk o f venous thromboembolism [facility] Work Phone: Start: 06-26-2022 Incentive spirometry [facility] Work Phone: Start: 06-26-2022 Insertion of cathete r into peripheral vein [facility] Work Phone: Start: 06-26-2022 Measuring intake and output [facility] Work Phone: Start: 06-26-2022 Providing care accor ding to standard [facility] Work Phone: Start: 06-26-2022 Provision of activit y privileges [facility] Work Phone: Start: 06-26-2022 [facility] Work Phone: Start: 06-26-2022 Verification routine [facility] Work Phone: Start: 06-26-[address] [facility] Work Phone: Start: 06-13-2022 Patient discharge [facility] Work Phone: Start: 06-12-2022 Oxygen therapy [facility] Work Phone: Start: 06-12-2022 Anes arthroscopic to audi shoulder replacement ANESTH SHOULDER REPLACEMENT [facility] Work Phone: Start: 06-12-2022 Arthroplasty glenohu meral joint total shoulder RECONSTRUCT SHOULDER JOINT [facility] Work Phone: Start: 06-12-2022 End: 06-12-2022 Following clinical pathway protocol [facility] Work Phone: Start: 06-12-2022 [facility] Start: 06-12-2022 Verification routine [facility] Work Phone: Start: 06-12-2022 Consultation [facility] Work Phone: Start: 06-12-2022 Ambulation therapy management [facility] Work Phone: Start: 06-12-2022 Application of device [facility] Work Phone: Start: 06-12-2022 Assessment of risk o f venous thromboembolism [facility] Work Phone: Start: 06-12-2022 Catheterization of vein [facility] Work Phone: Start: 06-12-2022 Following clinical p athway protocol [facility] Work Phone: Start: 06-12-2022 Incentive spirometry [facility] Work Phone: Start: 06-12-2022 Introduction of urin cassy catheter [facility] Work Phone: Start: 06-12-2022 Measuring intake and output [facility] Work Phone: Start: 06-12-2022 Neurovascular assessment [facility] Work Phone: Start: 06-12-2022 Patient education [facility] Work Phone: Start: 06-12-2022 Procedure discontinued [facility] Work Phone: Start: 06-12-2022 Provision of activit y privileges [facility] Work Phone: Start: 06-12-2022 Referral to occupati onal therapist [facility] Work Phone: Start: 06-12-2022 Vital signs measurements [facility] Work Phone: Start: 06-12-2022 Wound care [facility] Work Phone: Start: 06-12-2022 [place] [facility] Work Phone: Start: 06-12-2022 Medication education [facility] Work Phone: Start: 03-13-2022 Influenza vaccination Flu vacc ine (Season Ended) [facility] Start: 03-01-2022 [facility] Work Phone: Start: 11-27-2021 Creatinine measurement Creatinine mo nitoring [facility] Work Phone: Start: 11-27-2021 Potassium monitoring Potassium monit oring [facility] Work Phone: Start: 01-02-2021 End: 01-02-2021 Evaluation and management of inpatient 01/02/2021 Office Visit Cardiology Shana Huerta, PART TIME RECEPTIONIST - QUALITY ASSURANCE MONITOR [address] [place] [address] [phone] [facility] Start: 12-05-2020 End: 12-05-2020 Evaluation and management of inpatient [facility] Start: 2018 Pneumococcal 65+ yea rs Vaccine (1 - PCV) Pneumococcal 65+ years Vaccine (1 - PCV) [facility] Start: 2018 Pneumococcal 65+ yea rs Vaccine (1 of 1 - PPSV23) Pneumococcal 65+ years Vaccine (1 of 1 - PPSV23) [facility] Work Phone: Start: 2018 Pneumococcal Vaccine : 65+ (1 of 1 - PCV) Pneumococcal Vaccine: 65+ (1 of 1 - PCV) [facility] Start: 02-22-2015 Shingles Vaccine (2 of 3) Clemente gles Vaccine (2 of 3) [facility] Start: 02-22-2015 Shingrix Vaccine (2 of 3) Clemente grix Vaccine (2 of 3) [facility] Start: 2013 RSV Vaccine (1 - 1-d ose 60+ series) RSV Vaccine (1 - 1-dose 60+ series) [facility] Start: 09-17-2003 Prostate specific an tigen measurement PSA counseling [facility] Work Phone: Start: 09-17-2003 Screening for malign ant neoplasm of colon Colon cancer screen colonoscopy [facility] Work Phone: Start: 1998 Diabetes Screening Diabetes Screenin g [facility] Start: 1998 Screening for malign ant neoplasm of colon [facility] Start: 1993 Lipid panel [facility] Start: 1993 Prostate specific an tigen measurement Prostate Specific Antigen (PSA) Screening or Monitoring [facility] Start: 1988 Lipid panel Lipid Screening [facility] Start: 1972 Urine microalbumin profile DTa P,Tdap,Td Vaccine (1 - Tdap) [facility] Start: 09-17-1971 Anxiety Screening Anxiety Screening [facility] Start: 09-17-1971 Depression Screening Depression Scre ening [facility] Start: 09-17-1971 Hepatitis C screening [facility] Start: 1965 Depression Screen Depression Screen [facility] Start: 1958 COVID-19 Vaccine (1) COVID-19 Vaccin e (1) [facility] Start: 1953 Hepatitis C screening Hepatitis C sc reen [facility] Work Phone: Alanine aminotransfe rase [Enzymatic activity/volume] in Serum or Plasma [facility] Work Phone: Albumin [Mass/volume ] in Serum or Plasma [facility] Work Phone: Alkaline phosphatase [Enzymatic activity/volume] in Serum or Plasma [facility] Work Phone: Anion gap measurement [facility] Work Phone: Aspartate aminotrans ferase [Enzymatic activity/volume] in Serum or Plasma [facility] Work Phone: Bacteria identified in Blood by Culture Blood Culture [facility] Work Phone: Basic metabolic 2000 panel - Serum or Plasma Basic Metabolic Panel Lab Routine Daily until discontinued starting 11/26/2020, 2 completed [facility] Work Phone: Comment on above: Daily until disconti nued starting 11/26/2020, 2 completed Bilirubin, total measurement [facility] Work Phone: Blood culture [facility] Work Phone: BUN/Creatinine ratio [facility] Work Phone: Calcium [Mass/volume ] in Serum or Plasma [facility] Work Phone: Carbon dioxide, tota l [Moles/volume] in Serum or Plasma [facility] Work Phone: CBC panel - Blood by Automated count CBC Lab Routine Daily until discontinued starting 11/26/2020, 2 completed [facility] Work Phone: Comment on above: Daily until disconti nued starting 11/26/2020, 2 completed Chloride [Moles/volu me] in Serum or Plasma [facility] Work Phone: Colonoscopy [facility] Continuous pulse oximetry Pulse oximetry, continuous Respiratory Care Routine Every 4hr until discontinued starting 11/26/2020 [facility] Work Phone: Comment on above: Every 4hr until disc ontinued starting 11/26/2020 Creatinine [Moles/vo lume] in Serum or Plasma [facility] Work Phone: EKG 12 lead [facility] Work Phone: Comment on above: Daily until disconti nued starting 11/26/2020, 2 completed Glucose [Mass/volume ] in Serum or Plasma [facility] Work Phone: Hematocrit [Volume Fraction] of Blood [facility] Work Phone: Hemoglobin [Mass/vol ume] in Blood [facility] Work Phone: Home BIPAP or CPAP Home BIPAP or CPAP Respiratory Care Routine Daily until discontinued starting 11/26/2020 [facility] Work Phone: Comment on above: Daily until disconti nued starting 11/26/2020 INR in Blood by Coagulation assay [facility] Work Phone: Leukocytes [#/volume ] in Blood [facility] Work Phone: Magnesium [Mass/volu me] in Serum or Plasma [facility] Work Phone: Mean corpuscular hemoglobin concentration determination [facility] Work Phone: Mean corpuscular hemoglobin determination [facility] Work Phone: Measurement of renal function [facility] Work Phone: Neutrophil count [facility] Work Phone: Neutrophil percent differential count [facility] Work Phone: NM Heart Views W str ess and W radionuclide IV [facility] Oxygen therapy [Mini [facility] Data Set] Initiate Oxygen Therapy Protocol Respiratory Care Routine Daily until discontinued starting 11/26/2020 [employer] Work Phone: Comment on above: Daily until disconti nued starting 11/26/2020 Patient Education [facility] Work Phone: Patient referral [facility] Work Phone: Platelets [#/volume] in Blood [facility] Work Phone: Potassium [Moles/vol ume] in Serum or Plasma [facility] Work Phone: Prothrombin time [facility] Work Phone: Red blood cell count [facility] Work Phone: Red cell distributio n width determination [facility] Work Phone: Sodium [Moles/volume ] in Serum or Plasma [facility] Work Phone: Spirometry panel Incentive fanny metry Respiratory Care Routine Every 2hr while awake until discontinued starting 11/26/2020 [facility] Work Phone: Comment on above: Every 2hr while awak e until discontinued starting 11/26/2020 Thyroid stimulating hormone measurement [facility] Work Phone: Total protein measurement [facility] Work Phone: Urea nitrogen [Mass/volume] in Serum or Plasma [facility] Work Phone: [facility] Immunizations Immunization Date Immunization Notes Care Provider Fa [facility] 06-27-2022 influenza, injectabl e, quadrivalent, preservative free Dr. Aury Schneider Work Phone: [facility] 06-27-2022 influenza, seasonal, injectable Dr. Aury Schneider Work Phone: [facility] 06-27-2022 influenza virus vaccine, unspecified formulation Taylor Fierro MD Work Phone: [facility] 10-25-2020 Covid (Moderna) Dr. Aury mata Work Phone: [facility] Comment on above: Result Comment: 2020: [id number] 09-27-2020 Covid (Moderna) Dr. Aury mata Work Phone: [facility] Comment on above: Result Comment: 2020: [id number] 04-12-[address] Aury Schneider Work Phone: [facility] 03-17-2020 tetanus toxoid, redu brian diphtheria toxoid, and acellular pertussis vaccine, adsorbed Dr. Aury Schneider Work Phone: [facility] 04-13-2019 Seasonal trivalent influenza vaccine, adjuvanted, preservative free; Translations: [Fluad ] DR THOMAS IBRAHIM MD [facility] 04-07-2018 influenza virus vaccine, unspecified formulation Paula Yin APRN.CNP Work Phone: [facility] 05-14-2016 influenza virus vaccine, unspecified formulation DR THOMAS IBRAHIM MD [facility] 12-28-2014 zoster vaccine, live DR MARLYS IBRAHIM MD [facility] Payers Date Payer Category Payer Self-pay [id number] 2023 Private Health Insurance [id number] 2014 Unknown [id number] 2014 Unknown [id number]. [id number] 2001 Private Health Insurance [id number] 1953 Unknown [id number] 2.16.840.1.822881.3.579. 2.627 1953 Unknown [id number] 2.16.840.1.436788.3.579. 2.627 1953 Unknown [id number] 2.16.840.1.383237.3.579. 2.627 1953 Unknown [id number] 2.16840.1.769003.3.579. 2.627 1953 Unknown [id number] 2.16840.1.567711.3.579. 2.627 1953 Unknown [id number] .840.1.516025.3.579. 2.627 1953 Unknown [id number] 2.16.840.1.480300.3.579. 2.627 1953 Unknown [id number] 2.16840.1.508904.3.579. 2.627 1953 Unknown [id number] 2.16.840.1.988426.3.579. 2.627 Medicare MEDICARE A ONLY [id number] Unknown SELF INS [facility] [id number] Unknown [id number] 2.16.840.1.234450.3.579. 2.462 Unknown [id number] 2.16.840.1.214033.3.579. 2.462 Unknown [id number] 2.16840.1.405594.3.579. 2.462 Unknown [id number] 2.16840.1.865988.3.579. 2.462 Unknown [id number] 2.16840.1.176048.3.579. 2.462 Unknown [id number] 2.16840.1.685637.3.579. 2.462 Unknown [id number] 2.840.1.305782.3.579. 2.462 Unknown [id number] 2.840.1.331171.3.579. 2.462 Unknown [id number] 2.840.1.552201.3.579. 2.462 Unknown [id number] 2.840.1.333990.3.579. 2.462 Unknown [id number] 2.840.1.084543.3.579. 2.462 Unknown [id number] 2.840.1.382553.3.579. 2.462 Unknown [id number] 2.840.1.945475.3.579. 2.462 Unknown [id number] 2.840.1.947407.3.579. 2.462 Unknown [id number] 2.840.1.036427.3.579. 2.462 Unknown [id number] 2.840.1.708589.3.579. 2.462 Unknown [id number] 2.840.1.059421.3.579. 2.462 Unknown [id number] 2.840.1.572814.3.579. 2.462 Unknown [id number] 2.840.1.278962.3.579. 2.462 Unknown [id number] 2.840.1.474396.3.579. 2.462 Social History Date Type Detail Facility Start: 11-26-2020 End: 03-06-2025 Tobacco smoking status NHIS Former smoker [facility] Work Phone: History of tobacco use Pipe Smoker [facility] History of tobacco use Cigar Smoker [facility] Start: 06-30-2018 End: 11-26-2020 Tobacco use and exposure Never used [facility] Start: 11-26-2020 End: 01-02-2021 Alcohol intake Ex-drinker (finding) [facility] Work Phone: Start: 1955 Sex Assigned At Not on file [facility] Work Phone: Exposure to SARS-CoV -2 (event) Not sure [facility] Start: 10-06-2021 End: 09-24-2023 Tobacco smoking status NHIS Unknown if ever smoked [facility] Start: 10-22-2020 None [facility] Start: 07-12-2019 Spouse/ Signif icant Other [facility] Start: 08-19-2020 Cigars;Pipe [facility] Start: 1955 Sex Assigned At Male [facility] Start: 06-30-2018 Tobacco smoking stat us NHIS Never smoked tobacco [facility] Start: 06-30-2018 Alcoholic beverage intake Current drinker of alcohol (finding) [facility] Start: 06-30-2018 End: 06-17-2020 History of Social function [facility] Start: 06-30-2018 End: 06-17-2020 Tobacco use panel [facility] National Score (1-10 0), lower number is lower risk Not on file [facility] Start: 03-22-2010 Alcohol Comment [facility] Sexual Orientation [facility] rosita [facility] Start: 09-01-2018 Sex Male (finding) [facility] Medical Equipment Procedure Code Equipment Code [...] Start: 06-12-2022 Reverse shoulder prosthesis base plate ()[id number] FDA Start: 06-12-2022 Polyethylene rev erse shoulder prosthesis cup ()[id number] FDA Start: 06-12-2022 Coated shoulder humeral stem prosthesis ()[id number] FDA Start: 06-12-2022 Reverse shoulder prosthesis head ()[id number] FDA Start: 06-12-2022 SCREW FDA Start: 06-12-2022 [...] Assessment Result Facility 05-23-2024 Functional Status Awake [facility] 05-23-2024 Functional Status Maintained [facility] 06-27-2022 Functional status Activity Ability Indepe ndent [facility] Work Phone: 06-13-2022 Functional status Chair [facility] Work Phone: Mental Status Date Assessment Result Facility 05-23-2024 Mental Status Oriented x 4 [facility] mukherjee [facility] 09-10-2023 Cognitive function [facility] Work Phone: 12-09-2022 Cognitive function [facility] Work Phone: 06-27-2022 Cognitive function [facility] Work Phone: 06-26-2022 Cognitive function Awake;Alert;A ppropriate;Fol lows Commands [facility] Work Phone: 06-13-2022 Cognitive function Voice[facility] Work Phone: Clinical Notes 11-26-2020 to 03-08-2025 Note Date & Type Note Facility 03-08-2025 Radiology Diagnostic study note [facility] [address] [place], [place] [address] Extremity Upper without Contra MR#: [id number] Acct: [id number] Name: CHRISTOPHER SILVA Rep #: [id number] : 1955 M 69 From: Roque Kumar MD PCP: Dr. Aury Schneider DO Status: REG CLI Study:Extremity Upper without Contra Date of Exam: 03/08/25 Exam# [id number] Ordering Dr: Doug Jenkins DO PROCEDURE: EXTREMITY UPPER WITHOUT CONTRA 03/08/2025 REASON FOR EXAM: PRIMARY OSTEOARTHRITIS TECHNIQUE: CT right shoulder coronal and Sagittal reconstruction series were provided. One or more dose reduction techniques were used (e.g., Automated exposure control, adjustment of the mA and/or kV according to patient size, use of iterative reconstruction technique. RADIATION DOSE SUMMARY: DLP: 1194 mGycm COMPARISON: None FINDINGS: There is severe osteoarthritis of the glenohumeral articulation with flattening of the articular surfaces, subcortical cyst formation, and marginal osteophytes. There are multiple corticated osteochondral fragments in the joint space with the largest in the superior joint space measuring 1.1 cm and in the anterior joint space measuring 1.1 cm. There is severe AC joint hypertrophy without evidence of separation. There is no suspicious lytic or blastic lesion. There is a mildly enlarged right axillary node measuring 1.2 x 2.7 cm, coronal image 36/100. There is no visiblemuscular atrophy. CT/Extremity Upper without Contra IMPRESSION: There is severe osteoarthritis of the glenohumeral articulation with flattening of the articular surfaces, subcortical cyst formation, and marginal osteophytes. There is a mildly enlarged right axillary node measuring 1.2 x 2.7 cm, coronal image 36/100. Reading Location: [facility] CC: Dr. Doug Jenkins, DO; Dr. Aury Schneider DO ~ Leather Coverer: Signed [facility] 12-19-2024 Hospital Discharge instructions Patient Education 12/19/2024 [...] what activities are safe for you. Take adtd-scq-dokrkoh and prescription medicines only as told by [...] 10/05/2001 Document Revised: 07/02/2018 Document Reviewed: 02/12/2018 Elsevier Patient Education 2020 [employer] Inc. 12/19/2024 12:06:52 Open Hernia Repair, Adult Open [...] including vitamins, herbs, eye drops, creams, and dwof-bli-bpjmapu medicines. Any problems you or family members [...] 12/23/2001 Document Revised: 06/11/2018 Document Reviewed: 12/10/2016 [employer] Patient Education 2020 [employer] Follow Up Care 12/07/2024 14:21:09 With:KELSEY OTTO Address: [address] [place] [address] [phone] Business (1) When: Unknown Comments:keep your follow-up appointment [facility] 12-19-2024 Note Discharge Instructions Thank you for allowing [facility] to assist you with your healthcare needs. The following is important discharge information regarding your hospital visit. Your Care Team AURY SCHNEIDER DO Your Diagnosis Acute post-operative pain What to do next Scheduled Follow-Up Appointments Appointment Type When With Where Contact Information StatusGS OV Post Op 01/02/2025 02:00 PM EDKELSEY ALMARAZ MD [facility] Confirmed PC OV 02/09/2025 10:30 AM EDT AURY SCHNEIDER DO [facility] Confirmed Follow Up Appointments Follow Up with KELSEY OTTO Where:[address] [phone] Business (1) Additional Information: keep your follow-up appointment The Following Activity and Diet Have Been Ordered for You Discharge Activity - Ordered -- Sexual [place] Restricted No bending, twisting, crawling or squatt, [...] When Why Instructions Last Dose New acetaminophen-hydrocodone ([place] 325- 5 mg oral tablet) 1 tab(s) by mouth Every 4 hours as needed for Pain, scale 1-6 Acute post-operative pain Duration: 5 Days Pickup at [facility]/pharmacy #[id number] Unchanged acetaminophen (acetaminophen 500 mg oral capsule) [...] Male hypogonadism Duration: 30 Days Pharmacy Information [facility]/pharmacy #[id number]: [address], [place] [phone] Please take this list to your next doctor s visit. Bring all medications you take, including over the counter medications, herbals and other supplements with you to your doctor s visit. Patients and families are reminded to discard old lists and to update any records with all medication providers or retail pharmacies. Medication Leaflets bupivacaine liposome (bue PIV a gallegos LYE brianne some) Exparel What [...] may report side effects to FDA at [phone]. What other drugs will affect bupivacaine liposome? Other drugs may affect bupivacaine liposome, including prescription and ihgi-uxv-gtcyuhv medicines, vitamins, and herbal products. Tell your [...] to ensure that the information provided by [employer]. ('[employer]') is accurate, up-to-date, and complete, but no guarantee is made to that effect. Drug information contained herein may be time sensitive. [employer] information has been compiled for use by healthcare practitioners and consumers in the [place] and therefore [employer] does not warrant that uses outside of the [place] are appropriate, unless specifically indicated otherwise. [employer] drug information does not endorse drugs, diagnose patients or recommend therapy. [employer] drug information is an informational resource designed [...] effective or appropriate for any given patient. [employer] does not assume any responsibility for any aspect of healthcare administered with the aid of information [employer] provides. The information contained herein is not intended to cover all possible uses, directions, precautions, warnings, drug interactions, allergic reactions, or adverse effects. If you have questions about the drugs you are taking, check with your doctor, nurse or pharmacist. Copyright 8094-1495 [employer]. Version: 4.01. Revision Date: 11/02/2017. Education Materials [...] what activities are safe for you. Take lsxr-fgj-kvmpwwi and prescription medicines only as told by [...] 10/05/2001 Document Revised: 07/02/2018 Document Reviewed: 02/12/2018 [employer] Patient Education 2020 [employer] Open Hernia Repair, Adult Open hernia repair [...] including vitamins, herbs, eye drops, creams, and zqbj-asl-umuvqjq medicines. Any problems you or family members [...] 12/23/2001 Document Revised: 06/11/2018 Document Reviewed: 12/10/2016 Cloud[employer]Wi Patient Education 2020 [employer] Additional Information VACCINATE! IT SAVES LIVES! Members of the community who have not yet received the COVID-19 vaccine and would like to receive it can visit one of [facility] vaccine clinics. There are many vaccine clinic locations within the [facility]. For locations and available times, please visit [email or web address] It is important to note that some COVID mobile vaccine clinics are held outdoors and may be canceled in rainy or stormy conditions. To learn more about pediatric vaccinations (ages 5-11), we invite you to visit the [facility] webpage. https://www.akCitysearchs.org/page s/4026-Sdotm-Siitsexjtjy-Frequently -Asked-Questions.html To learn more about the COVID-19 vaccine, we invite you to visit the CDC website for a list of frequently asked questions.https://www.cdc.gov/coron avirus/2019-ncov/vaccines/faq.html [facility] Patient Portal Access Instructions: Stay connected with your healthcare team and access your personal medical information anytime with the [facility] Patient Portal. Please follow the directions below to create your BandApp account: 1.Access the email account you provided upon registration to the hospital/physician office.2.Look for an invitation email from [facility].3.Open the email and access the invitation link: Accept Invitation to [facility].4.Fill in the required monroy to create your account. To access your account, visit [email or web address]. Click the blue button labeled Access Patient [...] you will allow to register on the [facility] Patient Portal for access to your information. You can also access the [facility] One[facility] Patient Portal on the PollGround Anywhere larisa. Simply click on Patient Portal and then log into your account. If you would like to receive a full copy of your medical records, please contact the [facility] Medical Records Department by calling [phone], Thursday through Thursday between 8 a.m. and [...] Call your local pharmacy or go to [email or web address] to find one close to you.3.Make use of household items: Use cat litter or old coffee grounds to dispose medications if other options are not available. Mix your drugs with these household products, seal them in an airtight container and throw it into the garbage. Call [facility]: [phone] to be sure your drugs can be [...] aware that I should contact my doctor. Patient/Crnp Signature: ____ Date/Time: Relationship to Patient: __ Witness Name/Signature: Date/Time: [facility] 12-19-2024 Anesthesiology Consult note Patient: CHRISTOPHER SILVA Age: 69 years Sex: Male : 1955 Associated Diagnoses: None Author: NISA HAWKINS APRN-MARIA ELENA Preoperative Information Anesthesia history Patient's history: negative. [...] list: Medical Abdominal pain / SNOMED CT 81922204 / Confirmed Aortic stenosis / SNOMED CT 306751317 / Confirmed Atypical chest pain / SNOMED CT 990919695 / Confirmed Bradycardia / SNOMED CT 60175579 / Confirmed Erectile dysfunction / SNOMED CT 2984062311 / Confirmed Hiatal hernia / SNOMED CT 531070213 / Confirmed Left hip pain / SNOMED CT 01995904 / Confirmed Aortic valve replaced / SNOMED CT 3203545555 / Confirmed Hypertension / SNOMED CT 9778130807 / Confirmed Hypothyroid / SNOMED CT 36709461 / Confirmed Decreased exercise tolerance / SNOMED CT 715263370 / Confirmed Back injury / SNOMED CT 7877332530 / Confirmed Strain of left groin / SNOMED CT 63743890 / Confirmed Intertrigo / SNOMED CT 39401373 / Confirmed Male hypogonadism / SNOMED CT 31864605 / Confirmed Hyperlipidemia, mixed / SNOMED CT 975468800 / Confirmed Influenza vaccine needed / SNOMED CT 394499447 / Confirmed RADHA - Obstructive sleep apnea / SNOMED CT 5797019925 / Confirmed Toe osteomyelitis / SNOMED CT 8498505541 / Confirmed Right wrist pain / SNOMED CT 55991599 / Confirmed Pain of left hand / SNOMED CT 159779909862256 Pain of left shoulder joint / SNOMED CT 913770949901969 Pain of right shoulder joint / SNOMED CT 665803491101781 Prostate cancer screening / SNOMED CT 415222363 / Confirmed Well adult exam / SNOMED CT 534493169 / Confirmed Peripheral neuropathy / SNOMED CT 0889062749 / Confirmed Elevated troponin / SNOMED CT 3970343072 / Confirmed Left shoulder pain / SNOMED CT 20374507 / Confirmed Umbilical hernia / SNOMED CT 1709866843 / Confirmed Unable to concentrate / SNOMED CT 29102898 / Confirmed Need for hepatitis C screening test / SNOMED CT 130566158 / Confirmed Vitamin D deficiency / SNOMED CT 60327478 / Confirmed, Active Problems (35) Abdominal pain [...] history: YAG (yttrium aluminum garnet) laser vitreolysis (5836538067) on 04/05/2024 at 68 Years. Comments: 05/16/2024 9:21 Becki Ayers CMA Left eye YAG (yttrium aluminum garnet) laser vitreolysis (3965749473) on 03/22/2024 at 68 Years. Comments: 05/16/2024 9:20 Becki Ayers EMPLOYMENT INTERVIEWER Right eye Partial amputation of toe of left foot (6859658609) on 03/18/2024 at 68 Years. Comments: 05/16/2024 9:19 Becki Ayers [facility] 2nd toe Shoulder replacement (964287416) on 06/12/2022 at 66 Years. Comments: 05/16/2024 9:19 Becki Ayers [facility] Left Hip replacement ([id number]) on 02/25/2022 at 66 Years. Comments: 05/16/2024 9:18 Becki Ayers CMA Left TAVR - transcatheter aortic valve replacement (0064720511) on 11/23/2020 at 65 Years. Cataract (541652380) on 06/10/2018 at 62 Years. Comments: 05/16/2024 8:57 Becki Ayers CMA left eye Cataract (683656349) on 05/03/2018 at 62 Years. Comments: 05/16/2024 8:57 Becki Ayers CMA right eye Colonoscopy (925296150) on 03/09/2017 at 61 Years. Comments: 05/16/2024 8:56 Becki Ayers CMA Polyp removal, lost blood, required over night stay in hospital, polyp benign Colonoscopy (873237178) on 12/18/2016 at 61 Years. Knee replacement planned (4001936899) on 05/23/2010 at 54 Years. Comments: 05/16/2024 8:54 Becki Ayers CMA Left knee Knee replacement (388914781) on 04/25/2010 at 54 Years. Comments: 05/16/2024 8:53 Becki Ayers CMA Right knee. Laminectomy (7301083270). Comments: 05/16/2024 8:47 Becki Ayers CMA L3-L4, 1975 Fusion ([id number]). Comments: 05/16/2024 8:48 Becki Ayers CMA L3-L4, 1985 Radial keratotomy ([id number]). Comments: 05/16/2024 8:49 Becki Ayers CMA Bilateral eyes, 1987 Knee ([id number]). Comments: 05/16/2024 8:50 Becki Ayers CMA Left knee, bilateral meniscectomies, 2002 Appendectomy (825761081). Comments: 05/16/2024 8:46 Becki Ayers CMA 1966 Acromioclavicular joint (075800173). Comments: 05/16/2024 8:48 Becki Ayers CMA Right side, reconstruction, 1981 Elbow (5019101989). Comments: 05/16/2024 8:48 Becki Ayers CMA Left side, repair, 1982 Carpal tunnel release (636568478). Comments: 05/16/2024 8:50 Becki Ayers CMA Right wrist, 1999 Knee ([id number]). Comments: 05/16/2024 8:51 Becki Ayers CMA Right knee, Bilateral meniscectomies, 2002 Radiation (773268134). Comments: 05/16/2024 8:51 Becki Ayers CMA Treatment for prostate cancer, 2007 Microwave (744846679). Comments: 05/16/2024 8:52 Becki Ayers CMA Treatment for prostate, 2008 Gum (641878585). Comments: 05/16/2024 8:53 Becki Ayers CMA Surgery on upper back bilateral gum, 2010 Tooth (80270270). Comments: 05/16/2024 8:54 Becki Ayers CMA Removal, 2014 Social History: Social & Psychosocial Habits Alcohol [...] Person #1 We May Share PHI FRANCY CARLOSER Designated Person #1 Relationship Spouse Designated Person #2 We May Share PHI LILLI VARGAS [phone] Designated Person #2 Relationship Sibling Privacy Restrictions [...] Education NPO after midnight, No jewelry, Responsible Green Party, Aware of surgery location, Pre-op education done, 1 bottle CHG wash with instructions given, No ordered medications, SSI prevention handout given SN - Preprocedure Comments Spoke with patient, Verbalizes/Nonverbally indicates understanding Barriers to Learning None evident Teaching Method Explanation Preferred Spoken Language Thai Preferred Written Language Thai Teaching Evaluation Verbalizes/Nonverbally indicates understanding Safety Brochure Information Reviewed Unable to complete [facility] Video Viewed No Patient's Current Physicians [...] Intake 12/18/2024 19:00 . Assessment and Plan [place] [employer] Anesthesiologists (ASA) physical status classification: Class III. Anesthetic Preoperative Plan Anesthetic technique: General. Maintenance airway: Oral endotracheal tube. Postoperative pain management: Per surgeon. Risks discussed: nausea, vomiting, sore throat, dental injury, hypotension, allergic reaction, serious complications. Informed consent: signed by patient. Digitally Signed by NISA HAWKINS on 12/19/2024 09:02 AM [facility] 11-02-2024 Evaluation note Diagnosis Onset Date Resolution Cool skin acute November 02 8:38am Other specified peripheral vascular diseases acute November 02, 2024 8:38am [facility] Work Phone: 1(184) 416-413004-23-2025 Evaluation note* Diagnosis Onset Date Resolution Status Admit Date Cool skin acute November 02 8:38am Other specified peripheral vascular diseases acute November 02 8:38am History of transcatheter aor tic valve replacement (TAVR) November 26, 2020 acute December 12:51pm Obesity acute December 13, 2024 12:51pm Dyslipidemia chronic December 13 12:51pm Essential (primary) hypertension December 13, 2024 12:51pm 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 December 13 12:51pm [facility] Work Phone: 1(750) 192-568704-23-2025 Evaluation note* Diagnosis Onset Date Resolution Status Admit Date Cool skin acute November 02 8:38am Other specified peripheral vascular diseases acute November 02 8:38am History of transcatheter aor tic valve replacement (TAVR) November 26, 2020 acute December 12:51pm Obesity acute December 13, 2024 12:51pm Preoperative clearance acute 2024 12:51pm Dyslipidemia chronic December 13 12:51pm Essential (primary) hypertension chronic December 13, 2024 12:51pm 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 December 13 12:51pm [facility] Work Phone: 1(803) 258-737711-11-2024 Evaluation + Plan noteExtracted from: Title:Clinical Document Author:THOMAS IBRAHIM Date:05/23/24 [facility] ADMISSION HISTORY AN D PHYSICIAL CHIEF COMPLAINT: HISTORY OF PRESENT ILLNESS: REVIEW OF SYSTEMS: ACTIVE PROBLEMS: (31) Abdominal pain (91466619) Aortic stenosis (364667608) Aortic valve replaced (6021322912) Atypical chest pain (312342527) Back injury (5712560947) Bradycardia (71121350) Decreased exercise tolerance (647520443) Elevated troponin (5330676295) Erectile dysfunction (5093857099) Hiatal hernia (794352344) Hyperlipidemia, mixed (541146811) Hypertension (3275461035) Hypothyroid (61517004) Influenza vaccine needed (680732263) Intertrigo (83375583) Left hip pain (55445316) Left shoulder pain (87835218) Male hypogonadism (45017348) Need for hepatitis C screening test (513398312) RADHA - Obstructive sleep apnea (5501181536) Pain of left hand (898927875863264) Pain of left shoulder joint (703161785595997) Pain of right shoulder joint (824590081501832) Peripheral neuropathy (2205563602) Prostate cancer screening (890970812) Right wrist pain (75916926) Strain of left groin (07433976) Toe osteomyelitis (7342449475) Unable to concentrate (12073227) Vitamin D deficiency (74663185) Well adult exam (824848602) MEDICATIONS: Active Inpt Meds: None Active PRN Meds: None One Time Meds: None Active IV Meds: None ALLERGIES: (1) Dilaudid FAMILY HISTORY: SOCIAL HISTORY: PHYSICAL EXAM: VITALS: XuusqmYjlwMXDdymfOAPhH3GUL2JhqrGj(kg) 05/23 07:5436.4--704743DT77/66652.5 24 Hr Tmax: 36.4 at 05/23 07:54 [...] Appointment Date:08/01/2024 08:00:00 AM Scheduled Provider:RENALDO ORDONEZ Location:[facility] Appointment Type:PC Wellness Annual w/Labs [facility] 11-11-2024 Hospital Discharge instructions Patient Education 05/23/2024 [...] before eating solid foods. General instructions Take gouq-wpq-nokmjvl and prescription medicines only as told by [...] 10/19/2016 Document Revised: 09/27/2018 Document Reviewed: 10/19/2016 Cloud4Wi Patient Education 2020 [employer] 05/23/2024 09:58:05 9 - AO Minor Esophagogastroduodenoscopy [...] Up Care 05/06/2024 15:14:27 With:THOMAS IBRAHIM Address: [address] [place], [place] [phone] [phone] Business (1) When: Unknown Comments:CALL TO SCHEDULE FOLLOW UP IN 2 WEEKS [facility] Yohannes 11-11-2024 Note Discharge Instructions Thank you for allowing [facility] to assist you with your healthcare needs. The following is importantdischarge information regarding your hospital visit. Your Care Team AURY SCHNEIDER DO What to do next Scheduled Follow-Up Appointments Appointment Type When With Where Contact Information StatusPC Wellness Annual w/Labs 08/01/2024 08:00 AM EST RENALDO ORDONEZ APRN-ANGELINA [facility] Confirmed Follow Up Appointments Follow Up with THOMAS IBRAHIM Where:[address] [place], [place] [id number]- [phone] Business (1) Additional Information: CALL TO SCHEDULE [...] before eating solid foods. General instructions Take tfkz-hrx-dqxwvph and prescription medicines only as told by [...] 10/19/2016 Document Revised: 09/27/2018 Document Reviewed: 10/19/2016 Cloud4Wi Patient Education 2020 [employer] Esophagogastroduodenoscopy This is an endoscopic procedure [...] to receive it can visit one of [facility] vaccine clinics. There are many vaccine clinic locations within the [facility]. For locations and available times, please visit [email or web address]/. It is important to note that some COVID mobile vaccine clinics are held outdoors and may be canceled in rainy or stormy conditions. To learn more about pediatric vaccinations (ages 5-11), we invite you to visit the [facility] webpage. https://www.[facility].org/pages/1678-Xtxkz-Ybitsqeelsl-Ruysbfcyjw-Qqpip-Aow stions.htmlTo learn more about the COVID-19 vaccine, we invite you to visit the CDC website for a list of frequently asked questions.https://www.cdc.gov/coronavirus/2019-ncov/vaccines/faq.html [facility] Patient Portal Access Instructions: Stay connected with your healthcare team and access your personal medical information anytime with the [facility] Patient Portal. Please follow the directions below to create your [facility] account: 1.Access the email account you provided upon registration to the hospital/physician office.2.Look for an invitation email from [facility].3.Open the email and access the invitation link: AcceptInvitation to [facility].4.Fill in the required monroy to create your account. To access your account, visit [email or web address]. Click the blue button labeled Access Patient [...] who you will allowto register on the [facility] Patient Portal for access to your information. You can also access the [facility] U-Play StudiosChart Patient Portal on the [facility] Links Globalwhere larisa. Simply click on Patient Portal and then log into your account. If you would like to receive a full copy of your medical records, please contact the [facility] Medical Records Department by calling [phone], Thursday through Thursday between 8 a.m. and [...] Call your local pharmacy or go to http://bit.ly/9E3Tj9f to find one close to you.3.Make use of household items: Use cat litter or old coffee grounds to dispose medications if other options arenot available. Mix your drugs with these household products, seal them in an airtight container andthrow it into the garbage. Call [facility]: [phone] to be sure your drugs can be [...] that I should contact my d hernanor. Patient/Crnp Signature: Date/Time: Relationship to Patient: Witness Name/Signature: Date/Time: [facility] [id number] Note Discharge Instructions Thank you for allowing [facility] to assist you with your healthcare needs. The following is importantdischarge information regarding your hospital visit. Your Care Team AURY SCHNEIDER DO What to do next Scheduled Follow-Up Appointments Appointment Type When With Where Contact Information Status Wellness Annual w/Labs 08/01/2024 08:00 AM EST RENALDO ORDONEZ PART TIME RECEPTIONIST-QUALITY ASSURANCE MONITOR [facility] Confirmed Follow Up Appointments Follow Up with THOMAS IBRAHIM Where:[address] [place] [phone] [facility] (1) Additional Information: CALL TO SCHEDULE FOLLOW [...] before eating solid foods. General instructions Take jlmm-lik-izbasnq and prescription medicines only as told by [...] 10/19/2016 Document Revised: 09/27/2018 Document Reviewed: 10/19/2016 Cloud4Wi Patient Education 2020 [employer]. Esophagogastroduodenoscopy This is an endoscopic procedure [...] to receive it can visit one of [facility] vaccine clinics. There are many vaccine clinic locations within the [facility]. For locations and available times, please visit [email or web address]/. It is important to note that some COVID mobile vaccine clinics are held outdoors and may be canceled in rainy or stormy conditions. To learn more about pediatric vaccinations (ages 5-11), we invite you to visit the [facility] webpage. https://www.[facility].org/pages/4527-Zjguo-Uqdiudbpgyy-Raveuesabl-Urxgx-Rzn stions.htmlTo learn more about the COVID-19 vaccine, we invite you to visit the CDC website for a list of frequently asked questions.https://www.cdc.gov/coronavirus/2019-ncov/vaccines/faq.html [facility] Patient Portal Access Instructions: Stay connected with your healthcare team and access your personal medical information anytime with the [facility] Patient Portal. Please follow the directions below to create your [facility] account: 1.Access the email account you provided upon registration to the hospital/physician office.2.Look for an invitation email from [facility].3.Open the email and access the invitation link: AcceptInvitation to [facility].4.Fill in the required monroy to create your account. To access your account, visit [email or web address]. Click the blue button labeled Access Patient [...] who you will allowto register on the [facility] Patient Portal for access to your information. You can also access the [facility] Patient Portal on the [facility] Globalwhere larisa. Simply click on Patient Portal and then log into your account. If you would like to receive a full copy of your medical records, please contact the [facility] Medical Records Department by calling [phone], Thursday through Thursday between 8 a.m. and [...] Call your local pharmacy or go to http://bit.ly/1O5Kv8m to find one close to you.3.Make use of household items: Use cat litter or old coffee grounds to dispose medications if other options arenot available. Mix your drugs with these household products, seal them in an airtight container andthrow it into the garbage. Call [facility]: [phone] to be sure your drugs can be [...] been reviewed and explained to me and I,MICHELLE CHRISTOPHER understand my current condition and have read and understand these discharge instructions. I have received a written copy of the plan/instructions. If I have questions, I am aware that I should contact my d octor. Patient/Crnp Signature: Date/Time: Relationship to Patient: Witness Name/Signature: Date/Time: [facility]11-11-2024 Note Date of Service 05/23/2024 Procedure Name EGD with biopsy Consent Taken before procedure Indication Patient with chronic reflux epigastric pain Location [facility] Pre-Procedure Exam Chronic GE reflux Procedural [...] REFLUX DISEASE, GASTROESOPHAGEAL REFLUX DISEASE, Preferred Lab: [facility], [facility]... Post Procedure Assessment, 05/23/24 9:40:00 EST, Stop [...] AM Digitally Signed by AURY SCHNEIDER DO [facility]11-11-2024 Anesthesiology Consult note Patient: CHRISTOPHER SILVA Age: 68 years Sex: Male : 1955 Associated Diagnoses: None Author: CIARRA NARAYANAN PART TIME RECEPTIONIST-RECORDS SECTION SUPERVISOR Assessment Postanesthesia assessment Vitals: Vital signs from [...] by CIARRA NARAYANAN on 05/23/2024 09:40 AM [facility]11-11-2024 Note [facility] ADMISSION HISTORY AND PHYSICIAL CHIEF COMPLAINT: HISTORY OF PRESENT ILLNESS: REVIEW OF SYSTEMS: ACTIVE PROBLEMS: (31) Abdominal pain (07896080) Aortic stenosis (597551291) Aortic valve replaced (5956496392) Atypical chest pain (942422730) Back injury (1782672863) Bradycardia (69200145) Decreased exercise tolerance (287054791) Elevated troponin (5464152431) Erectile dysfunction (6005550876) Hiatal hernia (067048731) Hyperlipidemia, mixed (469458308) Hypertension (4625612205) Hypothyroid (26172276) Influenza vaccine needed (498711867) Intertrigo (35177908) Left hip pain (81187535) Left shoulder pain (33228890) Male hypogonadism (92473769) Need for hepatitis C screening test (139974828) RADHA - Obstructive sleep apnea (7653493186) Pain of left hand (103874549608708) Pain of left shoulder joint (084375957283229) Pain of right shoulder joint (944478630140352) Peripheral neuropathy (8562168536) Prostate cancer screening (075512229) Right wrist pain (94616734) Strain of left groin (47065679) Toe osteomyelitis (5723991140) Unable to concentrate (80890327) Vitamin D deficiency (02832287) Well adult exam (578230262) MEDICATIONS: Active Inpt Meds: None Active PRN Meds: None One Time Meds: None Active IV Meds: None ALLERGIES: (1) Dilaudid FAMILY HISTORY: SOCIAL HISTORY: PHYSICAL EXAM: VITALS: LnbisbEugoQYWpguyPRDhR6VUA7WjoyTq(kg) 05/23 07:5436.4--540119HC52/15937.5 24 Hr Tmax: 36.4 at 05/23 07:54 [...] THOMAS IBRAHIM MD on 05/23/2024 09:30 AM [facility]11-11-2024 Anesthesiology Consult note Patient: CHRISTOPHER SILVA Age: 68 years Sex: Male : 1955 Associated Diagnoses: None Author: CIARRA NARAYANAN APRN-RECORDS SECTION SUPERVISOR Preoperative Information Time of last food or [...] list: Medical Abdominal pain / SNOMED CT 00177520 / Confirmed Aortic stenosis / SNOMED CT 012881038 / Confirmed Atypical chest pain / SNOMED CT 546269563 / Confirmed Bradycardia / SNOMED CT 17988644 / Confirmed Erectile dysfunction / SNOMED CT 1354483903 / Confirmed Hiatal hernia / SNOMED CT 139238244 / Confirmed Left hip pain / SNOMED CT 71203128 / Confirmed Aortic valve replaced / SNOMED CT 8688861743 / Confirmed Hypertension / SNOMED CT 1957350467 / Confirmed Hypothyroid / SNOMED CT 73912036 / Confirmed Decreased exercise tolerance / SNOMED CT 229961620 / Confirmed Back injury / SNOMED CT 6796477647 / Confirmed Strain of left groin / SNOMED CT 29676003 / Confirmed Intertrigo / SNOMED CT 97533371 / Confirmed Male hypogonadism / SNOMED CT 32037650 / Confirmed Hyperlipidemia, mixed / SNOMED CT 370430511 / Confirmed Influenza vaccine needed / SNOMED CT 944282695 / Confirmed RADHA - Obstructive sleep apnea / SNOMED CT 2816726644 / Confirmed Toe osteomyelitis / SNOMED CT 0856232727 / Confirmed Right wrist pain / SNOMED CT 02664019 / Confirmed Pain of left hand / SNOMED CT 091591097603927 Pain of left shoulder joint / SNOMED CT 106020846698241 Pain of right shoulder joint / SNOMED CT 186889469376535 Prostate cancer screening / SNOMED CT 940662385 / Confirmed Well adult exam / SNOMED CT 176403811 / Confirmed Peripheral neuropathy / SNOMED CT 2824395603 / Confirmed Elevated troponin / SNOMED CT 1649438871 / Confirmed Left shoulder pain / SNOMED CT 45234960 / Confirmed Unable to concentrate / SNOMED CT 78059838 / Confirmed Need for hepatitis C screening test / SNOMED CT 249450473 / Confirmed Vitamin D deficiency / SNOMED CT 01392166 / Confirmed Canceled: Diarrhea / SNOMED CT 532691137 Canceled: Dysuria / SNOMED CT 70989882 Canceled: Finger swelling / SNOMED CT 482327534, Active Problems (31) Abdominal pain Aortic stenosis [...] history: YAG (yttrium aluminum garnet) laser vitreolysis ([id number]) on 04/05/2024 at 68 Years. Comments: 05/16/2024 9:21 Becki Ayers CMA Left eye YAG (yttrium aluminum garnet) laser vitreolysis ([id number]) on 03/22/2024 at 68 Years. Comments: 05/16/2024 9:20 Becki Ayers [facility] Right eye Partial amputation of toe of left foot ([id number]) on 03/18/2024 at 68 Years. Comments: 05/16/2024 9:19 Becki Ayers [facility] 2nd toe Shoulder replacement ([id number]) on 06/12/2022 at 66 Years. Comments: 05/16/2024 9:19 Becki Ayers [facility] Left Hip replacement ([id number]) on 02/25/2022 at 66 Years. Comments: 05/16/2024 9:18 Becki Ayers CMA Left TAVR - transcatheter aortic valve replacement (0691632178) on 11/23/2020 at 65 Years. Cataract ([id number]) on 06/10/2018 at 62 Years. Comments: 05/16/2024 8:57 Becki Ayers CMA left eye Cataract ([id number]) on 05/03/2018 at 62 Years. Comments: 05/16/2024 8:57 Becki Ayers CMA right eye Colonoscopy ([id number]) on 03/09/2017 at 61 Years. Comments: 05/16/2024 8:56 Becki Ayers CMA Polyp removal, lost blood, required over night stay in hospital, polyp benign Colonoscopy ([id number]) on 12/18/2016 at 61 Years. Knee replacement planned ([id number]) on 05/23/2010 at 54 Years. Comments: 05/16/2024 8:54 Becki Ayers CMA Left knee Knee replacement ([id number]) on 04/25/2010 at 54 Years. Comments: 05/16/2024 8:53 Becki Ayers CMA Right knee. Laminectomy ([id number]). Comments: 05/16/2024 8:47 Becki Ayers CMA L3-L4, 1975 Fusion ([id number]). Comments: 05/16/2024 8:48 [facility] Bustamante Becki Nieves CMA L3-L4, 1985 Radial keratotomy ([id number]). Comments: 05/16/2024 8:49 [facility] Bustamante Becki Nieves CMA Bilateral eyes, 1987 Knee ([id number]). Comments: 05/16/2024 8:50 Becki Ayers CMA Left knee, bilateral meniscectomies, 2002 Appendectomy ([id number]). Comments: 05/16/2024 8:46 DU[facility] Bustamante Becki Nieves CMA 1966 Acromioclavicular joint ([id number]). Comments: 05/16/2024 8:48 Becki Ayers CMA Right side, reconstruction, 1981 Elbow (0225535652). Comments: 05/16/2024 8:48 Becki Ayers CMA Left side, repair, 1982 Carpal tunnel release ([id number]). Comments: 05/16/2024 8:50 Becki Ayers CMA Right wrist, 1999 Knee (609332510). Comments: 05/16/2024 8:51 Becki Ayers CMA Right knee, Bilateral meniscectomies, 2002 Radiation ([id number]). Comments: 05/16/2024 8:51 Becki Ayers CMA Treatment for prostate cancer, 2007 Microwave (450241417). Comments: 05/16/2024 8:52 Becki Ayers CMA Treatment for prostate, 2008 Gum ([id number]). Comments: 05/16/2024 8:53 Becki Ayers CMA Surgery on upper back bilateral gum, 2009 Tooth ([id number]). Comments: 05/16/2024 8:54 Becki Ayers CMA Removal, 2014 Social History: Social & Psychosocial Habits Alcohol [...] Signs (last 24 hrs) Last Charted Temp Sbafwvxh04.4 DegC (MAY 23 07:54) DYA348 mmHg (MAY 23 07:54) DBP78 mmHg (MAY 23 07:54) Measurements from flowsheet : Measurements 05/23/2024 7:54 EST Height 175 cm Admission Weight 142.5 kg Hammon Body Weight 70.46 kg Admission Body Mass Index 46.53 m2 05/23/2024 7:45 EST Height 175 cm Hammon Body Weight 70.46 kg Pain assessment: Pain [...] Height 175 cm Admission Weight 142.5 kg Hammon Body Weight 70.46 kg Admission Body Mass [...] Palpation Non-Tender Skin Temperature Warm Skin Description [place], Normal for ethnicity Skin Integrity Intact Skin [...] level maintained 05/23/2024 7:48 EST Allergies Yes Short Order Fry Cook On Yes Consent Form Signed Yes Patient [...] Person #1 Relationship Spouse Height 175 cm Hammon Body Weight 70.46 kg Status N/A Sensory [...] evident Teaching Method Explanation Preferred Spoken Language Thai Preferred Written Language Thai Patient's 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 Assessment and Plan [place] [employer]hesi[employer] (ASA) physical status classification: Class III. Anesthetic Preoperative Plan Premedication: intravenous. Anesthetic technique: MAC. Induction: intravenously. Maintenance airway: Mask. Risks discussed: nausea, vomiting, headache, sore throat, dental injury, hypotension, allergic reaction, serious complications. Informed consent: signed by patient. Digitally Signed by CIARRA NARAYANAN on 05/23/2024 08:07 AM [facility]09-27-2024 History of Present illness Narrative * Neftaly Garcia RT(R) - 04/08/2024 11:50 AM EDT RADIOLOGY SERVICE PROGRESS NOTE DATE OF SERVICE: April 08, 2024 TIME OF SERVICE: 15:46 EVENT: EXAM/PROCEDURE NOT COMPLETED - Exam rescheduled for order was placed by a RN and not Cosigned by the physician and patient left. Go[employer] message was sent to both RN and MD to have the order signed. ADDITIONAL EVENT DETAILS: N/A SIGNATURE: SHY Leos) PATIENT NAME: Christopher Silva DATE: April 08, 2024 TIME: 3:46 PM PAGER/CONTACT #: documented in this encounterUniversity [facility]als [facility]09-27-2024 NoteHNO ID: [id number] Author: NEFTALY GARCIA RT(R) Service: Radiology Author Type: Technologist Type: Progress Notes Filed: 04/08/2024 15:47 Note Text: RADIOLOGY SERVICE PROGRESS NOTE DATE OF SERVICE: April 08, 2024 TIME OF SERVICE: 15:46 EVENT: EXAM/PROCEDURE NOT COMPLETED - Exam rescheduled for order was placed by a RN and not Cosigned by the physician and patient left. GoEuro message was sent to both RN and MD to have the order signed. ADDITIONAL EVENT DETAILS: N/A SIGNATURE: RT Deric(R) PATIENT NAME: Christopher Silva DATE: April 08, 2024 TIME: 3:46 PM PAGER/CONTACT #:[facility]09-27-2024 Telephone encounter Note* Telephone Encounter - Donovan Wray RN - 04/08/2024 11:08 AM EDT I contacted the patient and reminded him to bring disc with MRI to visit on Thursday with Dr. Go. Also requested that he went to [facility] facility to obtain lumbar x-rays prior to visit. He agreed to go to [facility] close by to his house. He was appreciative of the call. oDnovan Wray RN [facility]09-27-2024 Miscellaneous Notes* Telephone Encounter - Donovan Wray RN - 04/08/2024 11:08 AM EDT I contacted the patient and reminded him to bring disc with MRI to visit on Thursday with Dr. Go. Also requested that he went to [facility] facility to obtain lumbar x-rays prior to visit. He agreed to go to [facility] close by to his house. He was appreciative of the call. Donovan Wray RN documented in this encounterUniversity [facility]als [facility]09-18-2024 Telephone encounter Note * Telephone Encounter - Shraddha Donaldson - 03/30/2024 10:44 AM EDT Referral from [facility] for Neurosurgery, for lumbosacral stenosis , lumbar spondylosis and radiculopathy, no recent images in Epic. LVM for patient to call office to be scheduled. [facility]09-18-2024 Miscellaneous Notes* Telephone Encounter - Shraddha Donaldson - 03/30/2024 10:44 AM EDT Referral from [facility] for Neurosurgery, for lumbosacral stenosis , lumbar spondylosis and radiculopathy, no recent images in Epic. LVM for patient to call office to be scheduled. documented in this encounterUniversity Hospitals [facility]03-01-2024 Discharge summary Author Jose Trinh [facility] September 11, 2023 2:31am Note Date/Time September 10, 2023 11:34pm [facility] Medical Records Department [address] [place] [address] Emergency Department Summary 09/10/23 MR#: [id number] Acct: [id number] Name: CHRISTOPHER SILVA Rep #:[id number] : 1955 67 From: Jose Trinh DO PCP: Dr. Aury Schneider, DO Status:REG ER Location: ED HPI History [...] by a cardiac event presents for evaluation [facility] Medical History Arthritis Back pain Blepharitis of [...] DAILY 12/03/22 [History Last Taken 12/02/22] vitamin R90-pnwtjly B1 5.5 mg-12.5 mcg/5 mL oral liquid [...] for discharge and should talk to his computer terminal operator on an outpatient basis to receive a potential repeat stress test or further cardiac workup. This plan of care was discussed with thepatient and family and as he is pain- free and his troponins are remaining stablehe is comfortable with this plan of action and will follow-up with his computer terminal operator as directed. History & Record Review Discussion [...] % (Auto) 65.3 Lymph % (Auto) 23.6 Blaine % (Auto) 6.2 Eos % (Auto) 2.8 [...] 23:59 EST Reading Location ID and State: [facility] / [place] Tel , Service support , Chest CTA 09/11/23 23:50 IMPRESSION: No pulmonary embolism or other acute abnormality identified in the chest. Electronically Signed: Nadeem Middleton MD at 0:38 EST , Chest x-ray as interpreted by the emergency medicine physician reveals no acute infiltrate pneumothorax or pleural effusion Management Discussion w/another healthcare provider: Putty Glazer Discharge Plan Triage Chief Complaint: Chest Pain [...] release (DR/EC) 81 mg PO DAILY vitamin Y44-fpbqbbp B1 5.5-12.5 mg-mcg/5 mL Liquid 1 ml PO BID Primary Care Provider: Aury Schneider Referrals: Fred Bond MD [Med Staff - Active Staff] - Aury Schneider DO [Primary Care Provider] - Activity Restrictions/Additional Instructions: Please contact your computer terminal operator office later today to inform them of [...] your Primary Care Provider. Call [facility] ([phone]) or report to the closest Emergency Room. Call 911 if necessary. 09/11/23 0231 <Electronically signed by Jose Trinh DO> Cosigner Signature (if applicable): CC: Dr. Aury Schneider DO ~ Signed [facility] Work Phone: 1(105) 674-769302-29-2024 Chief complaint+Reason for visit Narrative * Chief Complaint COVID EXPOSURE CHEST PAIN S/P [facility] CP fsll Reason for Visit COVID-19 virus detec justin Obesity Dyslipidemia Essential (primary) hypertension Nonobstructive atherosclerosis of coronary artery [facility] Work Phone: 1(607) 582-981212-04-2023 Discharge summary Author Shana Quintana [facility] June 15, 2023 9:59am Note Date/Time June 15, 2023 9 :59am [facility] [place] [address] / REHABILITATION SERVICES DISCHARGE SUMMARY MR#: [id number] Acct: [id number] Name: CHRISTOPHER SILVA Rep #: [id number] : 1955 67 From: Shana Quintana OTR/L, CHT Referring DrTerri: HELEN Willingham Status: REG RCR Eval Date: [...] ROM 65/[address] right dermatology technician strength 75# left 85# right lateral pinch [...] Hobbies Goal:ROM equal to unaffected hand: Yes Goal:Rn Staff/Pinch strength at least 75% of unaffected hand: [...] please fell free to call me at [phone]. Thank you for the referral of this patient. Sincerely, SUMIT Talbot/Bandar, HIGINIO <Electronically signed by Shana ARANA/HIGINIO Portillo> 06/15/23 0959 CC: HELEN Willingham; Dr. Aury Schneider, DO ~ MK Signed [facility] Work Phone: 1(251) 955-618806-30-2023 Discharge summary Author [facility] January 09, 2023 1:40am Note Date/Time January 08, 2023 11:1 4pm [facility] Medical Records Department [address] [place] [address] Emergency Department Summary 01/08/23 MR#: [id number] Acct: [id number] Name: CHRISTOPHER SILVA Rep #:[id number] : 1955 67 From: Josue Jamison MD PCP: Dr. Aury Schneider, DO Status:REG ER Location: ED HPI History [...] for maybe his thyroid medication severalweeks ago. PFSH [facility] Medical History Arthritis Back pain Blepharitis of [...] Last Taken 06/11/22] 5-HTP 18.8 mg-tyrosine 187.5 jk-dhzcaqtua-mnpzzgan-B6-C-chrom capsule 1 cap PO QHS supplement 06/26/22 [History Last Taken Unknown] calcium 600 mg capsule 1,200 mg PO DAILY supplement 06/26/22 [History Last Taken Unknown] aspirin 81 mg tablet,delayed release 81 mg PO DAILY 12/03/22 [History Last Taken 12/02/22] vitamin H51-drwkcua B1 5.5 mg-12.5 mcg/5 mL oral liquid [...] 75.2 H Lymph % (Auto) 14.4 L Blaine % (Auto) 6.6 Eos % (Auto) 2.4 [...] 600 mg Capsule 1,200 mg PO DAILY 4KQH-njgnn-swbp-djxgc-X4-N-chr 18.8-187.5-93.8 mg Capsule 1 cap PO QHS acetaminophen 500 mg tablet 1,000 mg PO Q8 PRN (Reason: pain) aspirin 81 mg tablet,delayed release (DR/EC) 81 mg PO DAILY vitamin A69-rojyzpe B1 5.5-12.5 mg-mcg/5 mL Liquid 1 ml PO TID Primary Care Provider: Aury Schneider Referrals: Aury Schneider DO [Primary Care Provider] - (Next week, call for appointment) Disposition Disposition: Home, Self Care What to do if you have Problems For any increased pain, shortness of breath, bleeding, nausea or vomiting, chestpain, or any unexpected problems, contact your Primary Care Provider. Call [facility] ([phone]) or report to the closest Emergency Room. Call 911 if necessary. 01/09/23 0140 <Electronically signed by Josue Jamison MD> Cosigner Signature (if applicable): CC: Dr. Aury Schneider DO ~ Signed [facility] Work Phone: 1(773) 918-297105-30-2023 Procedure [facility] 12-09-2022 Procedure [facility]01-22-2022 Evaluation note* Diagnosis Onset Date Resolution Status COVID-19 virus detected August 03, 2021 acute [facility] Work Phone: 1(110) 364-586001-22-2022 Evaluation note* Diagnosis Onset Date Resolution Status COVID-19 virus detected August 03, 2021 acute Obesity acute Dyslipidemia chronic Essential (primary) hypertension chronic 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 [facility] Work Phone: [phone]) 103-360505-17-2021 Evaluation note* Diagnosis Onset Date Resolution Status Essential (primary) hypertension chronic History of transcatheter aor tic valve replacement (TAVR) November 26, 2020 chronic Nonobstructive atherosclerosis of coronary artery chronic Osteoarthritis, shoulder acu te [facility] Work Phone: 1(119) 157-478705-17-2021 Evaluation note* Diagnosis Onset Date Resolution Status Essential (primary) hypertension chronic History of transcatheter aor tic valve replacement (TAVR) November 26, 2020 chronic Nonobstructive atherosclerosis of coronary artery chronic Osteoarthritis, shoulder res olved Left shoulder pain acute [facility] Work Phone: 1(273) 130-344105-17-2021 Evaluation note* Diagnosis Onset Date Resolution Status [...] chronic Nonobstructive atherosclerosis of coronary artery chronic [facility] Work Phone: 1(307) 950-490005-17-2021 Evaluation note* Diagnosis Onset Date Resolution Status Admit Date History of transcatheter aor tic valve replacement (TAVR) November 26, 2020 acute December 12:51pm Obesity acute December 13, 2024 12:51pm Preoperative clearance acute Ju 2024 12:51pm Dyslipidemia chronic December 13 12:51pm Essential (primary) hypertension chronic December 13, 2024 12:51pm 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 December 13 12:51pm [facility] Work Phone: 1([phone]) 904-582705-17-2021 Hospital Discharge instructions* Instructions* Shana Huerta APRN - QUALITY ASSURANCE MONITOR - 11/26/2020 - Please call the [facility] with any questions: [phone] -You will have have the following follow [...] aspirin will be indefinite. documented in [facility] Work Phone: Chief complaint+Reason for visit Narrative* Chief Complaint EXPOSED /COVID TEST L HIP PAIN Reason for Visit COVID-19 [facility] Work Phone: Chief complaint+Reason for visit Narrative* Chief Complaint COVID EXPOSURE CHEST PAIN Reason for Visit COVID-19 [facility] Work Phone: Evaluation + Plan note Future Appointments Appointment Date:01/02/2025 02:00:00 PM Scheduled Provider:KELSEY OTTO MD Location:[facility] Appointment Type:GS OV Post Op Appointment Date:02/09/2025 10:30:00 AM Scheduled Provider:AURY SCHNEIDER DO Location:[facility] Appointment Type:PC OV Future Scheduled Tests Radiology* US Abdomen Complete 06/17/24 [facility] Evaluation note* Diagnosis Aortic stenosis, severe Aortic valve disorders documented in this encounter [facility] Work Phone: Evaluation note* Diagnosis Aortic stenosis, severe Aortic valve disorders documented in this encounter [facility] Work Phone: Evaluation note* Diagnosis Aortic valve stenosis, etiology of cardiac valve disease unspecified documented in this encounter [facility] Work Phone: Evaluation note* Diagnosis Onset Date Resolution Status Disc degeneration, lumbar ac chipewwa Obesity acute Osteoarthritis of left hip a cute Rash noneactive [facility] Work Phone: Evaluation note* Diagnosis Onset Date Resolution Status Rash noneactive [facility] Work Phone: Evaluation note* Diagnosis Onset Date Resolution Status COVID-19 acute [facility] Work Phone: Evaluation note* Diagnosis Onset Date Resolution Status History of colon polyps acut e [facility] Work Phone: Evaluation note* Diagnosis Onset Date Resolution Status Strain of right hand acute Strain of right hand acute Strain of right hand acute Strain of right hand acute Obesity acute Dyslipidemia chronic Essential (primary) hypertension chronic Nonobstructive atherosclerosis of coronary artery chronic [facility] Work Phone: Evaluation note* Diagnosis Radiculopathy, lumbar region Thoracic or lumbosacral neuritis or radiculitis, unspecified Radiculopathy, lumbar region- Primary Thoracic or lumbosacral neuritis or radiculitis, unspecified documented in this encounter [facility] and [facility] Author Dr. Escoto [facility] December 09, 2022 7:43am Note Date/Time December 09, 2022 7:43a m [facility] Medical Records Department [address] [place] [id number] History & Physical Exam 12/09/22 0740 MR#: [id number] Acct: [id number] Name: CHRISTOPHER SILVA Rep #:[id number] : 1955 67 From: Tay molina MD PCP: Dr. Aury Schneider, DO Status:[facility] Location: [place] [address]- HPI - General HPI Narrative CHRISTOPHER SILVA, is a 67 M who presents for surveillance colonoscopy. Patient's colonoscopy was 5 years ago and he had a polyp removed. He denies abdominal pain or blood in the stool. He does report he had bleeding with his last colonoscopy. [facility] Medical History (Updated 12/09/22 @ 07:42 by [...] Last Taken 06/11/22] 5-HTP 18.8 mg-tyrosine 187.5 eg-iymarpyry-exciwqca-B6-C-chrom capsule 1 cap PO QHS supplement 06/26/22 [History Last Taken Unknown] calcium 600 mg capsule 1,200 mg PO DAILY supplement 06/26/22 [History Last Taken Unknown] aspirin 81 mg tablet,delayed release 81 mg PO DAILY 12/03/22 [History Last Taken 12/02/22] vitamin H70-cknalgd B1 5.5 mg-12.5 mcg/5 mL oral liquid [...] history Discharge Is Pt Admitted From a Fpc, or a Senior Living: No After D/C, Where Do you Plan to Go: Return Home From the PAT History Number of Risk Factors: 5 Vital [...] proceed with procedure. Tay Escoto MD Pager: [facility] [address] [place] [address], [address] [place] [address] Office: Surgery Risks - Colonoscopy Risks Include but are not Limited To: Risks include but are not limited to: Bleeding, perforation requiring further surgery, inability to complete colonoscopy requiring barium enema. 12/09/22 0743 <Electronically signed by Tay Escoto MD> Cosigner Signature (if applicable): CC: Dr. Tay Escoto MD; Dr. Aury Schneider, DO~ Signed [facility] Work Phone: Hospital course Narrative No data available for this section [facility] Hospital Discharge instructions Additional Instructions Please contact your computer terminal operator office later today to inform them of the symptoms was brought to the ER and discuss having a outpatient stress test performed. Continue all of your medications as directed by your doctor and return to the ER should you have any further concerns or worsening of symptomsWAkron [facility] Work Phone: Hospital Discharge instructions No data available for this section [facility] Progress note No data available for this section [facility] Reason for referral (narrative)No reason for referral information availableWAkron Children's Hospital Work Phone: Advance Directives No Advanced Directives [...] No October 06, 2021 2:40pm Power of Lab Engineer No October 06 2:40pm Advance Directive Response Recorded Date/ Time Living Will No March 01 3:18pm Power of Lab Engineer No March 01 3:18pm Advance Directive Response Recorded Date/ Time Living Will No April 09, 2022 10:45pm Power of Lab Engineer No March 10:45pm Advance Directive Response Recorded Date/ Time Living Will No June 12 1:00pm Power of Lab Engineer No June 12, 2022 1:00pm Advance Directive Response Recorded Date/ Time Living Will No June 26 022 7:55pm Power of Lab Engineer No June 26, 2022 7:55pm Advance Directive Response Recorded Date/ Time Living Will No June 26 10:44pm Power of Lab Engineer No June 26, 2022 10:44pm Advance Directive Response Recorded Date/ Time Living Will No December 03, 2022 2 :50pm Power of Lab Engineer No December 03, 2022 2:50pm Advance Directive Response Recorded Date/ Time Living Will No January 08, 2023 11:11pm Power of Lab Engineer No January 08 11:11pm Advance Directive Response Recorded Date/ Time Living Will No January 29, 2023 4:02pm Power of Lab Engineer No January 29 4:02pm Advance Directive Response Recorded Date/ Time Living Will No August 10:51pm Power of Lab Engineer No September 10, 2023 10:51pm Advance Directive Response Recorded Date/ Time Living Will No September 24, 2023 8:15am Power of Lab Engineer No September 23 8:15am Reason for Referral Status Reason Specialty Diagnoses / Procedures Referre d By Contact Referred To Contact Closed Cardiology Diagnoses Aortic stenosis, severe Procedures ECHO Complete 2D W Doppler W Color Shana Huerta, PART TIME RECEPTIONIST - QUALITY ASSURANCE MONITOR [address] [phone] Specialty Diagnoses / Procedures Referred By Contac t Referred To Contact Cardiology Diagnoses Aortic valve stenosis, etiology of cardiac valve disease unspecified Procedures ECHO Complete 2D W Doppler W Color Jae Shana Bandar, PART TIME RECEPTIONIST - QUALITY ASSURANCE MONITOR [address] [place] [address] Referral ID Status Reason Start Date Expiration Date Visits Re quested Visits Authorized [id number] Closed 11/02/2021 11/02/2022 1 1 Family History [...] josefina yps Chief Complaint 3 WK FU BWC FU/ SCHAEFFLER RIGHT WRIST INJURY/ BWC SCHAEFFLER STRAIN OF MUSCLE, FASCIA/TENDON AT WRIST. RX HERE BWC FU/ SCHAEFFLER 9 M FU Reason for [...] 12:51pm Chief Complaint Admit Date LUE and LLE [...] 13, 2024 12:51pm Chief Complaint Admit Date SURGICAL CLEARANCE December 13, 2024 12:51 pm Presence of prosthetic heart valve January 03, 2025 12:56pm Amb Documentation January 03, 2025 3:54 pm RT SHOULDER OA *BLUEPRINT PROTOCOL* Augu st 2024 7:14am Reason for Visit Admit Date History of transcatheter aortic valve re placement [...] 100 mL IVPB (CANCELED) 3,000 mg, Intravenous, BLOCK OPERATOR TO O.R., 1 dose, On Thu11/26/20 [...] at 1000 1047 (Given - Provider: Michelle Barnett, BRITTAENY)1400 (Due)2125 (Given - Provider: Kena Sheehan, RN) 0558 (Given - Provider: LIDIA DAWKINS)1321 (Given - Provider: Michelle Barnett, BRITTANEY)2200 (Due) Continuous Medication Order 11/25/2020 11/26/2020 11/27/2020 0.9 % sodium chloride infusion (CANCELED) Intravenous, at 50 mL/hr, CONTINUOUS, Starting on Thu11/26/20 at 0615, Upon admission to sameday - please start iv if patient does not have iv access., Pre-op (day of surgery) 06 (New Bag - Provider: Keisha Womack RN)0905 (Stopped - Provider: Michelle Barnett RN) 0.9 % sodium chloride infusion Intravenous, at 25 mL/hr, CONTINUOUS, Starting on Thu11/26/20 at 0615, Pre-op (day of surgery) 0923 (New Bag - Provider: Michelle Barnett RN)1330 (Stopped - Provider: Michelle Barnett RN) [...] Michelle Barnett, BRITTANEY)2125 (Given - Provider: Kena Sheehan, BRITTANEY) 0604 (Given - Provider: LIDIA DAWKINS) bisacodyl [...] 5-40 mL, Intravenous, PRN, Line Care, Per Position Description Manager Request, Starting on Thu11/26/20 at 0643, For 72 hours, May use order for Line Care after every IV line use and Agitated Saline Bubble Study. Administration for Bubble Study per operator control room request for only. Remove 1 mL 0.9% [...] 5-40 mL, Intravenous, PRN, Line Care, Per Position Description Manager Request, Starting on Thu11/26/20 at 0910, For 72 hours, May use order for Line Care after every IV line use and Agitated Saline Bubble Study. Administration for Bubble Study per operator control room request for only. Remove 1 mL 0.9% [...] 2D W Doppler W Color Shana Huerta, PART TIME RECEPTIONIST - QUALITY ASSURANCE MONITOR [address] [place] [id number] Reason Comments Retirement Benefits Specialist - Other Reminder Call Goals (unrecognized section [...] Care Teams (unrecognized sec tion and content) [employer] Relationship Specialty Start Date End Date Aury Schneider [address] [place] [address] PCP - General Urgent Care 10/24/20 Team Status: Active Member Role Status Dates Dr. Aury Schneider DO Family Provider Active Dr. Aury Schneider DO Primary Care Provider Active Team Status: Inactive Member Role Status Dates Dr. Aury Schneider DO Primary Care Provider Referjaky g Provider Active Leo CERVANTES, PA Attending Provider Active Team Status: Active Member Role Status Dates Dr. Aury Schneider DO Primary Care Provider Active Karen Young Attending Provider Active Team Status: Active Member Role Status Dates Dr. Aury Schneider DO Primary Care Provider Referjaky g Provider Active Dr. Tay Escoto MD Attending Provider, Other Provider Active Team Status: Inactive Member Role Status Dates Dr. Aury Schneider , DO Primary Care Provider, Referrin g Provider Active Dr. Tay Escoto MD Attending Provider Active Team Status: Inactive Member Role Status Dates Dr. Aury Schneider , DO Primary Care Provider Active Dr. Josue Jamison MD Emergency Provider Active Team Status: Inactive Member Role Status Dates Dr. Aury Schneider , DO Primary Care Provider, Referrin g Provider Active Francisco CERVANTES PA Attending Provider Active Team Status: Inactive Member Role Status Dates Dr. Aury Schneider , DO Primary Care Provider, Referrin g Provider Active Juan Lundy REAL ESTATE SUBAGENT, REAL ESTATE SUBAGENT-C Attending Provider Active Team Status: Inactive Member Role Status Dates Dr. Aury Schneider , DO Primary Care Provider Active Francisco CERVANTES PA Attending Provider, Referring Provi kuldip Active Team Status: Inactive Member Role Status Dates Dr. Aury Schneider DO Primary Care Provider Active Dr. Jose Trinh , DO Emergency Provider Active Team Status: Inactive Member Role Status Dates Dr. Aury Schneider , DO Primary Care Provider, Referrin g Provider Active Dr. Sean Spring MD Active Brittani Graham REAL ESTATE SUBAGENT, REAL ESTATE SUBAGENT-C Attending Provider Active Team Status: Inactive Member Role Status Dates Dr. Aury Schneider DO Primary Care Provider Active Dr. Jose Trinh , DO Attending Provider, Emergency Pr ovider Active Team Status: Inactive Member Role Status Dates Dr. Aury Schneider DO Primary Care Provider Active Dr. Akbar Ewing , DO Emergency Provider Active Team Status: Active Member Role Status Dates Dr. Aury Schneider DO Primary Care Provider Active Brittani Graham REAL ESTATE SUBAGENT, REAL ESTATE SUBAGENT-C Referring Provider, Other Provi kuldip Active Dr. Fred Bond MD Attending Provider Active Team Status: Active Member Role Status Dates Dr. Aury Schneider DO Primary Care Provider Active Brittani Graham REAL ESTATE SUBAGENT, REAL ESTATE SUBAGENT-C Attending Provider Active Team Status: Inactive Member Role Status Dates Dr. Aury Schneider DO Primary Care Provider Active Brittani Graham REAL ESTATE SUBAGENT, REAL ESTATE SUBAGENT-C Attending Provider, Referring P rovider Active Team Status: Inactive Member Role Status Dates Dr. Aury Schneider , DO Primary Care Provider Active Dr. Akbar Ewing , DO Attending Provider, Emergency P rovider Active Team Status: Active Member Role Status Dates Dr. Aury Schneider DO Primary Care Provider Active Dr. Fred Bond MD Attending Provider Active [employer] Relationship Specialty Start Date End Date Konstantin Roman (Historic) PCP - General 06/11/09 [employer] Relationship Specialty Start Date End Date Konstantin Roman (Historic) PCP - General 06/11/09 [employer] Relationship Specialty Start Date End Date Konstantin Roman (Historic) PCP - General 06/11/09 Team Status: Active Member Role Status Dates Dr. Aury Schneider DO Primary Care Provider Active Team Status: Inactive Member Role Status Dates Dr. Aury Schneider DO Primary Care Provider Active Start: July 25, [...] 2024 End: December 13, 2024 Brittani Graham REAL ESTATE SUBAGENT, REAL ESTATE SUBAGENT-C Attending Provider Active Start: December 13, 2024 [...] 2024 End: December 13, 2024 Brittani Graham REAL ESTATE SUBAGENT, REAL ESTATE SUBAGENT-C Attending Provider Active Start: December 13, 2024 End: December 13, 2024 Team Status: Inactive Member Role/Relationship Status Dates Dr. Aury Schneider DO Primary Care Provider Active Start: January 03, 2025 End: January 03, 2025 Brittani Graham REAL ESTATE SUBAGENT, REAL ESTATE SUBAGENT-C Attending Provider Active Start: January 03, 2025 End: January 03, 2025 Brittani Graham REAL ESTATE SUBAGENT, REAL ESTATE SUBAGENT-C Referring Provider Active Start: January 03, 2025 End: January 03, 2025 Team Status: Active Member Role/Relationship Status Dates Dr. Aury Schneider DO Primary Care Provider Active Start: January 03, 2025 Dr. Fred Bond MD Attending Provider Active S tart: January 03, 2025 Team Status: Active Member Role/Relationship Status Dates Dr. Aury Schneider DO Primary Care Provider Active Start: January 03, 2025 Brittani Graham REAL ESTATE SUBAGENT, REAL ESTATE SUBAGENT-C Attending Provider Active Start: January 03, 2025 Team Status: Inactive Member Role/Relationship Status Dates Dr. Aury Schneider DO Primary Care Provider Active Start: February 16, 2025 End: February 16, 2025 [employer]ena [employer] Attending Provider Active Start : February 16, 2025 End: February 16, 2025 [employer] Referring Provider Active Start : February 16, 2025 End: February 16, 2025 Team Status: Inactive Member Role/Relationship Status Dates Dr. Aury Schneider DO Primary Care Provider Active Start: December 13, 2024 End: December 13, 2024 Dr. Aury Schneider DO Referring Provider Active Start: December 13, 2024 End: December 13, 2024 Brittani Graham REAL ESTATE SUBAGENT, REAL ESTATE SUBAGENT-C Attending Provider Active Start: December 13, 2024 End: December 13, 2024 Team Status: Inactive Member Role/Relationship Status Dates Dr. Aury Schneider DO Primary Care Provider Active Start: January 03, 2025 End: January 03, 2025 Brittani Graham REAL ESTATE SUBAGENT, REAL ESTATE SUBAGENT-C Attending Provider Active Start: January 03, 2025 End: January 03, 2025 Brittani Graham REAL ESTATE SUBAGENT, REAL ESTATE SUBAGENT-C Referring Provider Active Start: January 03, 2025 End: January 03, 2025 Team Status: Active Member Role/Relationship Status Dates Dr. Aury Schneider DO Primary Care Provider Active Start: January 03, 2025 Dr. Fred Bond MD Attending Provider Active S tart: January 03, 2025 Team Status: Active Member Role/Relationship Status Dates Dr. Aury Schneider DO Primary Care Provider Active Start: January 03, 2025 Brittani Graham REAL ESTATE SUBAGENT, REAL ESTATE SUBAGENT-C Attending Provider Active Start: January 03, 2025 Team Status: Inactive Member Role/Relationship Status Dates Dr. uAry Schneider DO Primary Care Provider Active Start: February 16, 2025 End: February 16, 2025 Kena [employer] Attending Provider Active Start : February 16, 2025 End: February 16, 2025 [employer]ena [employer] Referring Provider Active Start : February 16, 2025 End: February 16, 2025 Team Status: Inactive Member Role/Relationship Status Dates Dr. Aury Schneider DO Primary Care Provider Active Start: March 08, 2025 End: March 08, 2025 Dr. Doug Jenkins DO Attending Provider Active Start: March 08, 2025 End: March 08, 2025 Dr. Doug Jenkins DO Referring Provider Active Start: March 08, 2025 End: March 08, 2025 (unrecognized sect ion and content) No Status Records FoundNo Status Records FoundNo Status Records FoundNo Status Records FoundNo Status Records FoundNo Status Records FoundNo Status Records Found INFORMATION SOURCE (unrecogn ized section and content) DATE CREATED AUTHOR 11/29/2021 [facility] DATE CREATED AUTHOR AUTHOR'S ORGANIZ ATION 03/12/2024 [facility] ([place]) DATE CREATED AUTHOR AUTHOR'S ORGANIZ ATION 04/09/2024 [facility] DATE CREATED AUTHOR AUTHOR'S ORGANIZ ATION 04/09/2024 [facility] DATE CREATED AUTHOR AUTHOR'S ORGANIZ ATION 01/01/2025 [facility] DATE CREATED AUTHOR AUTHOR'S ORGANIZ ATION 02/17/2025 [facility] DATE CREATED AUTHOR AUTHOR'S ORGANIZ ATION 03/29/2025 [facility] Source Comments (unrecognize d section and content) In the event this informatio n is protected by the Federal Confidentiality of Alcohol and Drug Abuse Patient Records regulations: The Federal rules restrict any use of the information to criminally investigate or prosecute any alcohol or drug abuse patient.[facility] the event this information is protected by the Federal Confidentiality of Alcohol and Drug Abuse Patient Records regulations: The Federal rules restrict any use of the information to criminally investigate or prosecute any alcohol or drug abuse patient.[facility] the event this information is protected by the Federal Confidentiality of Alcohol and Drug Abuse Patient Records regulations: The Federal rules restrict any use of the information to criminally investigate or prosecute any alcohol or drug abuse patient.[facility] FOR RECORDS PERTAINING TO PATIENTS WHO ARE [...] BE BASED ON THE PRIMARY CLINICAL RECORDS. [facility] [employer] [facility]. provides no warranty or guarantee of the accuracy or completeness of information in this document.
[2025-03-30] MEDS: LR 1,000 ML - BOLUS PREOP 999 ML IV (06:00)
[2025-03-30] MEDS: Magnesium 1 GM over 15 mins IV (06:07)
--- NOTE | 2025-03-30 06:36 | PCM.PRE.AN2 ---
ASA Classification* ASA Classification ASA Classification: 3 Assessment & Plan Anesthesia* Anesthesia Assessment Anesthesia Assessment: Discussed sedation and/or anesthesia options, risks, benefits, and alternatives with patient/parents/legal guardian/POA. Questions invited. The patient/parents/legal guardian/POA seems to understand and agrees to proceed with anesthesia plan. Reviewed the physical assessment, medical history, allergy history and patient home medications list prior to surgery/procedure/anesthetic and documented any changes. Performed airway and anesthesia risk assessments. Anesthesia Type Anesthesia Type: General History Source History Obtained from:: Patient and Chart Anesthesia Focused Assessment* Temperature: 97.5 F Pulse Rate: 72 Blood Pressure: 126/76 Respiratory Rate: 18 Pulse Ox: 95 Oxygen Delivery Method: Room Air Airway Assessment Mouth opens: >3 cm Mallampati Score: I Teeth Condition: Caps/Crowns (Patient has several crowns. They are tight.) and Missing (Patient has couple missing teeth.) Neck Range of motion (ROM): Limited ROM (Somewhat Decreased) Labs Anesthesia Preop lab: CBC WBC, (4.4-11.0) 6.2 K/mm3 03/10/25, 15:07 RBC, (4.6-6.2) 5.24 M/mm3 03/10/25, 15:07 Hgb, (13.0-16.5) 16.1 g/dL 03/10/25, 15:07 Hct, (40-54) 48.6 % 03/10/25, 15:07 Plt Count, (150-450) 283 K/mm3 03/10/25, 15:07 CHEMISTRY Potassium, (3.3-5.1) 4.4 mmol/L 03/10/25, 15:07 Sodium, (133-145) 143 mmol/L 03/10/25, 15:07 Magnesium, (1.5-2.2) 2.2 mg/dL 03/10/25, 15:07 BUN, (4-19) 11 mg/dL 03/10/25, 15:07 Creatinine, (0.70-1.20) 1.00 mg/dL 03/10/25, 15:07 Glucose, (70-99) 81 mg/dL 03/10/25, 15:07 POC Glucose, (74-106) 112 mg/dL H Today, 06:03 TSH, (0.300-4.200) 1.840 uIU/mL 03/10/25, 15:07 COAG PT, (11.7-14.9) 13.9 SECONDS 09/10/23, 23:08 Pre-Assessment Diagnosis/Proposed Procedure Planned Operative Procedure(s): (R) Total Shoulder Replacement Anesthesia History 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 When Was Last Pacemaker Check QUESTION #4 FULL TEXT: You/Your Family Experience fever (hyperthermia) with Anesthesia Last Oral Intake Last Oral intake: Last Oral Intake NPO since 03:30 03/30/25 06:00 Meds taken in AM with sips of Yes 03/30/25 06:00 water? 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 Female No 03/06/25 09:26 HX of Motion Sickness No 03/06/25 09:26 HX of N/V After Surgery No 03/06/25 09:26 Non-Smoker Yes 03/06/25 09:26 Duration of Surgery greater Yes 03/06/25 09:26 than 60 minutes Number of Risk Factors 2 03/06/25 09:26 PONV Score Moderate Risk 03/06/25 09:26 Height & Weight Height & Weight: Anesthesia: Height & Weight Height 5 ft 9 in 03/30/25 06:00 Weight: 142 kg 03/30/25 06:00 Body Mass Index (BMI) 46.2 03/30/25 06:00 Respiratory Assessment Respiratory Assessment - park maintenance technician: Respiratory Tract Infection Hx - park maintenance technician Hx Respiratory Tract Infection No 03/06/25 09:26 STOP Sleep Apnea STOP Sleep Apnea - park maintenance technician: STOP Sleep Apnea - park maintenance technician Hx Hypertension Yes: CONTROLLED WITH MEDS 03/06/25 09:26 Hx Sleep Apnea Yes 03/06/25 09:26 CPAP No 03/06/25 09:26 BIPAP Yes 03/06/25 09:26 Do you snore loudly (louder than talking or can be heard Do you often feel tired/ fatigued/ sleepy during daytime? Has anyone observed you stop breathing during sleep? STOP Results Positive 03/06/25 09:26 QUESTION #5 FULL TEXT : Do you snore loudly (louder than talking or can be heard through closed doors)? 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 Specify any problems Hx of Preganancy in last 3 N/A 03/06/25 09:26 Months Nurse Filling Out Transfusion VCHRISTIN 03/06/25 09:26 & Questions: Date: 03/06/25 03/06/25 09:26 Time: :03/06/25 09:26 Patient unable to answer at this time (ie. confused, unrespo /Reproduction History /Reproductive History - park maintenance technician: /Reproductive Hx- park maintenance technician Hx Now No 03/06/25 09:26 Gestational Age (in weeks): EDC: Hx Hx Para Hx Section SAB No 03/06/25 09:26 Active Medications Active Medications: Current Medications Generic Name Dose Route Start Last Admin Trade Name Camronq PRN Reason Stop Dose Admin Acetaminophen 1,000 mg 03/30/25 07:30 03/30/25 06:07 Acetaminophen 500 Mg Tablet PO 03/30/25 07:31 1,000 mg PREOP ONE Administration Celecoxib 400 mg 03/30/25 07:30 03/30/25 06:07 Celecoxib 200 Mg Capsule PO 03/30/25 07:31 400 mg PREOP ONE Administration Dexamethasone Sodium Phosphate 10 mg 03/30/25 07:30 Dexamethasone 10 Mg/Ml Vial IV 03/30/25 07:31 INTRAOP ONE Gabapentin 600 mg 03/30/25 07:30 03/30/25 06:08 Gabapentin 600 Mg Tablet PO 03/30/25 07:31 600 mg PREOP ONE Administration Lactated Ringer's 1,000 mls @ 999 mls/hr 03/30/25 07:30 03/30/25 06:00 IV 03/30/25 08:30 999 mls/hr .Q1H1M CUCO Administration Cefazolin Sodium 3 gm/ Sodium 115 mls @ 150 mls/hr 03/30/25 07:30 Chloride IV 03/30/25 08:15 INTRAOP ONE Tranexamic Acid 1,000 mg/ 110 mls @ 660 mls/hr 03/30/25 07:30 Sodium Chloride IV 03/30/25 07:39 INTRAOP ONE Lactated Ringer's 1,000 mls @ 999 mls/hr 03/30/25 08:30 IV 03/30/25 09:30 .Q1H1M CUCO Lactated Ringer's 1,000 mls @ 125 mls/hr 03/30/25 09:30 IV 03/30/25 17:29 .Q8H CUCO Magnesium Sulfate 1 gm/ 102 mls @ 408 mls/hr 03/30/25 07:30 03/30/25 06:23 Dextrose IV 03/30/25 07:44 Infused PREOP ONE Infusion Insulin Human Lispro 1 - 6 unit 03/30/25 07:30 Insulin Lispro 100 Unit/Ml Insuln.Pen SC 03/30/25 13:30 Q4H PRN PRN BG>/= 180, SEE PROTOCOL Protocol PFSH Medical History Non-smoker Thyroid disease BiPAP (biphasic positive airway pressure) dependence High cholesterol Back pain (~2023) History of hiatal hernia Gastric reflux Hypertension History of transesophageal echocardiography (CHIKA) Blepharitis of left lower eyelid Chalazion left lower eyelid Elevated troponin Left shoulder pain Coronary artery disease Wears glasses Cancer Sleep apnea Former smoker Leg cramps History of stress test History of echocardiogram Cardiology follow-up encounter History of hepatitis C Rheumatoid arthritis Hiatal hernia Myasthenia gravis Disc degeneration, lumbar Osteoarthritis of left hip COVID-19 virus detected (08/03/21) Hiatal hernia Hypoxemia Obstructive sleep apnea Nonrheumatic aortic (valve) stenosis Elevated troponin Nonobstructive atherosclerosis of coronary artery Essential (primary) hypertension Bradycardia with 41-50 beats per minute Prostate cancer Knee pain Hay fever Fatigue Shoulder pain Arthritis Hypogonadism in male Dyslipidemia Lower GI bleed Colonic polyp Morbid obesity with BMI of 45.0-49.9, adult Home Medications ?Medication ?Instructions ?Recorded ?Last Taken ?Type furosemide 40 mg tablet 40 mg PO DAILY diuretic/water pill 02/14/15 03/29/25 History omega-3 acid ethyl esters 1 gram 2 gm PO DAILY supplement 02/14/15 03/24/25 History capsule potassium chloride 20 mEq 20 meq PO DAILY supplement 02/14/15 03/29/25 History tablet,extended release(part/cryst) testosterone cypionate 100 mg/mL 1 ml IM Q14D hormone 02/14/15 03/12/25 History intramuscular oil folic acid 800 mcg tablet 0.8 mg PO DAILY supplement 03/09/17 03/26/25 History benazepril 40 mg tablet 40 mg PO DAILY blood pressure 07/12/19 03/29/25 History ergocalciferol (vitamin D2) 1,250 50,000 unit PO Q7D supplement 08/19/20 03/26/25 History mcg (50,000 unit) capsule pregabalin 100 mg capsule 100 mg PO TID pain 01/25/21 03/29/25 16:00 History sildenafil 100 mg tablet 100 mg PO DAILY PRN Erectile 11/04/21 06/11/22 History Held on 03/06/25. Dysfunction Instructions: ON HOLD aspirin 81 mg tablet,delayed 81 mg PO DAILY 12/03/22 03/29/25 History release vitamin [id number] B1 5.5 mg-12.5 1 ml PO BID 12/03/22 03/26/25 History mcg/5 mL oral liquid acetaminophen 500 mg tablet 1,000 mg PO Q8 PRN pain 12/04/22 Unknown History ascorbic acid (vitamin C) 1,000 mg 1 g PO DAILY 05/12/23 03/26/25 History capsule levothyroxine 50 mcg tablet 50 mcg PO DAILY 05/12/23 03/30/25 03:30 History diclofenac sodium 1 % topical gel 2 g topical ONCE PRN pain 09/18/23 Unknown History (Voltaren Arthritis Pain) calcium 500 mg (as 1 tab PO DAILY 90 days #90 tabs 03/18/24 03/26/25 Rx carbonate)-vitamin D3 15 mcg (600 unit) tablet (Os-Andrew 500 + D3) lisdexamfetamine 70 mg capsule 70 mg PO QAM 12/13/24 03/29/25 History (Vyvanse) niacin 500 mg tablet 1,000 mg PO QHS supplement 12/13/24 03/23/25 History tadalafil 20 mg tablet 20 mg PO PRN 03/06/25 03/16/25 History Allergy/AdvReac Type Severity Reaction Status Date / Time hydromorphone HCl (From Allergy Severe nausea, Verified 03/30/25 05:52 Dilaudid) confusion hydromorphone (From Dilaudid) AdvReac Severe Nausea/Vom/ Verified 03/30/25 05:52 Diarrhea Family History Mother Skin cancer Surgical History History of back surgery Hx of hernia repair Hx of foot surgery History of amputation of toe (~03/2024) History of colonoscopy History of cardiac catheterization History of hip replacement (~2021) History of shoulder surgery History of transcatheter aortic valve replacement (TAVR) (11/26/20) History of lumbar surgery History of left heart catheterization (08/20/20) History of knee surgery History of carpal tunnel release History of back surgery History of elbow surgery History of cataract surgery H/O laminectomy History of appendectomy H/O total knee replacement Social History household members: spouse current occupational status: employed Smoking Status: Former smoker alcohol intake: never Review of Systems (Anesthesia) ROS Narrative System reviewed and no additional complaints, except as documented.
[2025-03-30] MEDS: Cefazolin 1 GM/5 ML Vial 3 GM IV (07:32)
[2025-03-30] MEDS: Lidocaine 1% (5 ml sdv) 5 ML Vial 10 ML IV (07:41)
[2025-03-30] MEDS: fentaNYL 100 MCG/2 ML Ampul 200 MCG IV (08:31)
[2025-03-30] MEDS: JPS (Morphine 10mg/ml) OPERA.SITE (09:10)
[2025-03-30] MEDS: Vancomycin IV 1,000 MG/20 ML Vial OPERA.SITE (09:21)
--- NOTE | 2025-03-30 09:51 | OP.PCM_ITS ---
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 Surgery/Procedure Performed: Right reverse total shoulder arthroplasty ice cutter: Yes Grid Casting Machine Operator Helper: Magalis Peter Tasks completed by health center assistant: Opening & closing, Removing tissue, Implanting device, Hemostasis: Electrocautery and Retracting Additional specimen preparation assistant?: No Type of Anesthesia: General RN Documented Start/Stop Times: Operation Date: 03/30/25 07:30 Case Time Into Pre-Op 03/30/25 05:43 Out of Pre-Op 03/30/25 07:26 Anesthesia Start 03/30/25 07:32 Into Room 03/30/25 07:32 Procedure Start 03/30/25 08:10 Procedure End 03/30/25 09:42 Anesthesia End 03/30/25 09:47 Out of Room 03/30/25 09:47 Procedure Start Time: 08:10 Procedure Stop Time: 09:42 Select all DRAINS/GRAFTS/IMPLANTS that apply: Implanted device Implanted device details: Tornier Aequalis PerFORM+ reversed baseplate 29 mm diameter full wedge augmented, standard glenosphere cobalt chrome 42 mm diameter, Tornier perform inlay stem size #3, + 6 mm retentive size number 3 42 mm diameter polyethylene insert, short central post and peripheral screws x4. Estimated Blood Loss: 100 cc Specimen collected: No Description of surgery: Surgical indications: This is a 69-year-old male with persistent right shoulder pain. X-rays revealed severe right primary glenohumeral joint osteoarthritis. He failed nonsurgical treatment. We discussed anatomic versus reverse total shoulder arthroplasty. He and I were hoping that his deformity could allow for a anatomic total shoulder arthroplasty however after obtaining the CT scan for preoperative templating his retroversion measured 30 degrees and I explained that metal back augmentation would better suit his deformity thus a right reverse total shoulder arthroplasty was indicated. He expressed understanding. He wished to proceed with the surgery. The risks, benefits, alternatives the procedure was reviewed with the patient and he agreed to proceed. Risks included but were not limited to bleeding, infection, instability, loss of life or limb, risk of anesthesia, neurovascular injury, persistent pain, stiffness, prolonged immobilization, need for additional surgery, loosening of orthopedic hardware. Informed consent was obtained in the outpatient setting. Surgical details: Patient arrived to [facility] morning of the procedure and was greeted by the same day surgery staff. Prior to his procedure, I greeted the patient in the preoperative holding area I identified the patient by name, record number, and date of . Informed consent was confirmed. The operative extremity was marked. All questions were answered to patient satisfaction. Regional block was deferred by anesthesia due to BMI. At time of his procedure, patient was brought to the operative suite and positioned supine on a standard table with a beachchair attachment. General anesthesia was induced after all bony prominences were well-padded. Endotracheal tube was placed. After adequate anesthesia and securing the tube, we prepared the patient to be positioned in the beachchair position. A well- padded overhead crane technician was applied. The nonoperative extremity was placed in a well arm bonner. He was then brought into the beachchair position after we confirmed an appropriate blood pressure. We then spun the bed 45 degrees. The operative extremity was then prepared. In the butterfly wing of the bed was removed and a well-padded torso strap was applied to secure the patient to the bed. The operative extremity was now free. We then prepped and draped the right upper extremity in normal, sterile orthopedic fashion. We then performed a timeout with all parties in attendance in agreement with the side, site, and operation be performed. 3 g Ancef was administered prior to incision by anesthesia staff, as well as 1 g TXA IV. No concerns were voiced and we elected to proceed. I first marked a standard deltopectoral incision just lateral to the coracoid process in line with the long axis of the humerus. Skin was sharply incised with 10 blade scalpel. I then dissected bluntly through the subcutaneous layers and found the fat stripe between the deltoid and pectoralis major. The cephalic vein was then identified and protected. It was retracted laterally with the deltoid. I then bluntly dissected underneath the deltoid with a Gomes elevator. Panchito retractor was placed. The upper 1 cm of the pectoralis major was released. I then identified the long head of the biceps tendon in the intertubercular groove. This was tenodesed in situ with #2 FiberWire. I then amputated the biceps proximal to the tenodesis site and followed the tendon to the supraglenoid tubercle where it was amputated. This identified the lesser and greater tuberosities. The supraspinatus was intact. I then performed a subscapularis peel while rotating the humerus externally. I tagged the subscapularis for possible repair later with a tagging suture. Humeral head was then dislocated anteriorly. Appropriate access to the humeral head was confirmed. I then subluxed the humeral head posteriorly with a Fukuda retractor placed around the posterior lip of the glenoid. Inferior capsule was tension. I was able to palpate the axillary nerve. Inferior capsule was then released to the 4 o'clock position of the glenoid face. 3 sided subscapularis release was performed with Bovie cautery. I then remove the Fukuda retractor and redislocated the shoulder anteriorly. I then made a anatomic neck cut of the cartilaginous surface of the humeral head. Sizing plate for a size # 3 stem was utilized to determine appropriate reaming size. A central pin was placed engaging the lateral cortex of the humerus. A size # 3 reamer was used to ream the humeral metaphysis and prepare for the inlay stem. A canal finding reamer was utilized prior to sequential broaching to a size # 3 short stem with excellent rotational and axial purchase in the humerus. I remove the broach handle left the size # [address] I then subluxed the humerus posterior to the glenoid. I then placed retractors around the posterior and anterior glenoid to expose the glenoid. Glenoid labrum was removed with Bovie cautery protecting the axillary nerve. We then used the wedge guide from [place]alo to position our centering pin, exiting approximately 25 mm from the joint surface along the anterior scapula. Guide was removed and pin was analyzed and compared to preoperative planning. It appeared to be in appropriate position. The wedge reamer was then placed over top of the centering pin. I prepared the glenoid to bleeding bone in standard fashion. We then removed the reamer and used the cannulated drill for the short central post. Post and baseplate was assembled on the back table. We then inserted the baseplate and central post the assembled baseplate to an appropriate depth with good press-fit purchase. A [place] was used to confirm depth. Cortical screws then were placed in the peripheral holes with good purchase. The baseplate had excellent purchase and the entire scapula would rotate with rotation of the baseplate. We then impacted the 42 mm glenosphere with a standard eccentricity and tightened the locking screw mechanism. We then removed retractors and turned our attention back to the humerus. I trialed multiple polyethylene insert sizes and settled upon a +6 mm retentive poly. There was excellent range of motion and stability in all planes of motion. We selected this as our final size. We removed trials from the humerus after final dislocation. I copiously irrigated the canal. Broach was placed on hand and then impacted to an appropriate depth. Final + 6 mm retentive polyeth ylene insert was placed. Final reduction was then performed. The subscapularis was then identified with a tagging suture. Repair would have been likely under undue tension and likely failed. I elected to not perform a subscapularis repair. We then copiously irrigated the wound with a 3-minute dilute sterile Betadine soak and normal saline solution. Capsule, fascial, muscular and subcutaneous tissues were anesthetized with a joint compound. 1 g of vancomycin powder was placed within the wound approximately half deep into the joint and the other half superficial to the fascia. We reapproximated the interval with 0 Vicryl suture. Subcutaneous layers were reapproximated with 2 -0 Vicryl suture. Skin was finally running V-Loc 3-0 Monocryl suture and Dermabond. A sterile silver Mepilex dressing was applied. Patient was then placed in an ultra sling. Patient tolerated procedure well without complication. He was positioned back in the supine position extubated in the operative suite. He was transferred to the [facility] and subsequently to PACU in stable condition. Need for skilled specimen preparation assistant: Magalis Peter PA-C was critical to the outcome of the case. During the course of the procedure the physician specimen preparation assistant played a vital role. Her intimate knowledge of my steps in the procedure aided in safe and expedient completion of the procedure. The PA played a vital role in pos itioning particularly in obtaining the appropriate positioning. The PA was also vital in the retraction of soft tissues during the exposure and protecting vital structures. The PA was also vital and protecting soft tissues during times of bony cuts. She also played a vital role in closure with my direct supervision. The PA was also important during reduction and dislocation of the joint and tri als intraoperatively. Intraoperative medications: 2 g Ancef IV, 1 g TXA IV x2 Post Operative Plan: Patient will be placed in observation overnight due to medical comorbidities. Anticipate discharge home tomorrow. I will consult the hospitalist for assistance with medical management given his complex medical history. Occupational Therapy has been consulted. Weightbearing: Nonweightbearing right upper extremity, okay for pendulums. Range of motion of wrist elbow and hand as tolerated. Antibiotics: 2 g Ancef IV prior to incision, 24 hours IV antibiotics postoperatively. Plan for 1 week doxycycline upon discharge for extended antibiotic prophylaxis given patient risk factors. DVT Prophylaxis: Aspirin enteric-coated 81 mg twice daily starting tomorrow Shore: None Dressing: Maintain silver dressing x5 days. Okay to shower dressing on started on day 4 X-Rays: 2 weeks postop in the office Pain Medication: Oxycodone Rx upon discharge Follow-up: 2 weeks post-operatively with me in the office Surgical Findings: Severe right primary glenohumeral joint osteoarthritis with severe retroversion of the glenoid. Stable right shoulder final final reduction. Complications Complications: No Admit VTE Documentation VTE Present on Admission: No VTE Mechan Device Prophylaxis: SCD's and Thigh High NICOL Hose VTE Pharm Prophylaxis ordered?: Yes
--- NOTE | 2025-03-30 09:56 | PCM.POST.ANE ---
Anesthesia: Postop Eval I Current Vital Signs Temperature: 97.6 F Pulse Rate: 84 Blood Pressure: 158/83 Respiratory Rate: 14 Pulse Ox: 97 Oxygen Delivery Method: Room Air Assessment Airway patent: Yes Spontaneous unlabored respirations: Yes Mental status: Awake nausea: No Vomiting: No Anesthesia Complication: No Fluid Hydration Crystalloid volume administer (ml): 1,200 Total IV fluid infused: 1,200 Progress Note Anesthesia document: Postop Eval 1 completed: Yes
--- NOTE | 2025-03-30 10:25 | RAD_ITS ---
PROCEDURE: SHOULDER MIN 2 VIEWS 03/30/2025 REASON FOR EXAM: POST OP TECHNIQUE: Procedure Code: RADSH Modality: DX Procedure: SHOULDER MIN 2 VIEWS Laterality: Right shoulder COMPARISON: None FINDINGS: The patient is status post right reverse shoulder replacement. There is good alignment. Postoperative soft tissue changes. RAD/Shoulder min 2 Views IMPRESSION: Status post reverse shoulder replacement. There is good alignment. Postoperative soft tissue changes. Reading Location: [facility]
[2025-03-30] MEDS: Senna/Docusate Sodium 1 Tablet 2 TABLET PO ×2 (11:32→22:09)
[2025-03-30] MEDS: LR 1,000 ML - 125 ML/HR (POST BOLUS) POST OP IV (11:32)
--- NOTE | 2025-03-30 12:57 | POSTOPAN2_ITS ---
Anesthesia Postop Eval I Sum Postop Eval Completion status Anesthesia document: Postop Eval 1 completed: Yes Anesthesia Postop Eval I Summary Anesthesia Postop Eval I Summary: Anesthesia Postop Eval I: Assessment Summary Airway patent Yes 03/30/25 09:57 [email or web address] Spontaneous unlabored Yes 03/30/25 09:57 [email or web address] respirations Mental status Awake 03/30/25 09:57 [email or web address] nausea No 03/30/25 09:57 [email or web address] [email or web address] Vomiting No 03/30/25 09:57 [email or web address] Anesthesia Postop Eval I: Fluid Summary Crystalloid volume administer 1,200 03/30/25 09:57 [email or web address] [email or web address] (ml) Colloids volume administered ( ml) Blood Product volume administered (ml) Total IV fluid infused 1,200 03/30/25 09:57 BLOW [email or web address] Anesthesia Postop Eval I: Summary Notes Anesthesia Complication No 03/30/25 09:57 [email or web address] Anesthesia Complication Comment: Post-operative progress note Anesthesia: Postop Eval II Evaluation Mental status: Awake and Calm Pain Level: 0 nausea: No Vomiting: No Complications Anesthesia Complication: No
--- NOTE | 2025-03-30 12:57 | PCM.POSTANE2 ---
Anesthesia Postop Eval I Sum Postop Eval Completion status Anesthesia document: Postop Eval 1 completed: Yes Anesthesia Postop Eval I Summary Anesthesia Postop Eval I Summary: Anesthesia Postop Eval I: Assessment Summary Airway patent Yes 03/30/25 09:57 [email or web address] Spontaneous unlabored Yes 03/30/25 09:57 [email or web address] respirations Mental status Awake 03/30/25 09:57 [email or web address] nausea No 03/30/25 09:57 [email or web address] Vomiting No 03/30/25 09:57 [email or web address] Anesthesia Postop Eval I: Fluid Summary Crystalloid volume administer 1,200 03/30/25 09:57 [email or web address] (ml) Colloids volume administered ( ml) Blood Product volume administered (ml) Total IV fluid infused 1,200 03/30/25 09:57 [email or web address] Anesthesia Postop Eval I: Summary Notes Anesthesia Complication No 03/30/25 09:57 [email or web address] Anesthesia Complication Comment: Post-operative progress note Anesthesia: Postop Eval II Evaluation Mental status: Awake and Calm Pain Level: 0 nausea: No Vomiting: No Complications Anesthesia Complication: No
--- NOTE | 2025-03-30 13:49 | PN_ITS ---
Objective Data Objective Data Vital Signs: Vital Signs Temp Pulse Resp BP Pulse Ox O2 Del Method O2 Flow Rate 98.4 F 77 17 137/84 H 96 Nasal Cannula 2 03/30/25 13:01 03/30/25 13:01 03/30/25 13:01 03/30/25 13:01 03/30/25 13:01 03/30/25 13:01 03/30/25 13:01 Oxygen Flow Rate (L/min) 2 Oxygen Delivery Method Nasal Cannula Weight: 313 lb 0.902 oz Body Mass Index (BMI) 46.2 Intake & Output: Intake and Output for Last 24 Hours 03/28/25 03/29/25 03/30/25 23:59 23:59 23:59 Intake Total 1102 / 1102 Output Total 100 / 100 Balance 1002 / 1002 Lab / Micro Data 03/10/25 15:07 03/10/25 15:07 Labs: Laboratory Results - last 24 hr 03/30/25 06:03: POC Glucose 112 H Micro: Microbiology 03/10/25 15:07 Swab (Method) Nasal Screen MRSA/MSSA - Final Radiography Diagnostic Testing: Radiology Impression Shoulder X-Ray 03/30/25 10:25 IMPRESSION: Status post reverse shoulder replacement. There is good alignment. Postoperative soft tissue changes. Reading Location: [place] [address]
[2025-03-30] MEDS: Cefazolin 1 GM/50 ML BAG IV ×2 (15:07→22:31)
--- NOTE | 2025-03-30 16:07 | PN_ITS ---
Subjective Subjective Patient is a 69 y/o male admitted to the service of orthopedic surgery for right reverse total shoulder arthroplasty. He had the surgery on 03/30/2025 and hospitalist service was consulted for medical management. Patient was seen after the surgery. He had no complaints. Pain was well-controlled. He had an uneventful night. He denied any shortness of breath, dizziness, palpitations, nausea or vomiting. Review of systems otherwise negative. Objective Data Objective Data Vital Signs: Vital Signs Temp Pulse Resp BP Pulse Ox O2 Del Method O2 Flow Rate 97.5 F L 70 18 119/76 95 Nasal Cannula 2 03/30/25 15:01 03/30/25 15:01 03/30/25 15:01 03/30/25 15:01 03/30/25 15:01 03/30/25 15:01 03/30/25 15:01 Oxygen Flow Rate (L/min) 2 Oxygen Delivery Method Nasal Cannula Weight: 313 lb 0.902 oz Body Mass Index (BMI) 46.2 Intake & Output: Intake and Output for Last 24 Hours 03/28/25 03/29/25 03/30/25 23:59 23:59 23:59 Intake Total 1152 / 1152 Output Total 100 / 100 Balance 1052 / 1052 Lab / Micro Data 03/10/25 15:07 03/10/25 15:07 Labs: Laboratory Results - last 24 hr 03/30/25 06:03: POC Glucose 112 H Micro: Microbiology 03/10/25 15:07 Swab (Method) Nasal Screen MRSA/MSSA - Final Radiography Diagnostic Testing: Radiology Impression Shoulder X-Ray 03/30/25 10:25 IMPRESSION: Status post reverse shoulder replacement. There is good alignment. Postoperative soft tissue changes. Reading Location: [place] [address] Physical Exam Const alert, oriented x3 and no apparent distress Constitutional Narrative: class III obesity General Appearance: cooperative and well developed HEENT normocephalic, head/scalp atraumatic, moist oral mucous membranes and oropharynx normal Neck supple and no JVD Lymph Lymphatic: no lymphedema noted Resp Resp Narrative: mildly diminished breath sounds bibasallly, no wheezes or crackles. On 2L of oxygen by nasal canula Cardio regular rate, regular rhythm, S1 normal heart sound, S2 normal heart sound and no murmurs GI normal to inspection, nondistended, normoactive bowel sounds, soft to palpation and non-tender Extremity Extremity Narrative: RUE shoulder bandaged, RUE in sling. 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 * Management as per primary service orthopedics * PT OT on board. Fall precautions. Incentive spirometry. * #Benign essential hypertension: On lisinopril and Lasix #Nonrheumatic aortic valve stenosis: S/p TAVR #Dyslipidemia: On statin #History of ADHD: On lisdexamfetamine. Will hold during admission as we likely do not have in our formulary. DVT prophylaxis: As per primary service Thank you for the courtesy of the consult. Hospitalist service will continue to follow with you. Charges/Coding Visit Charges Inpatient E&M: 52402 Subs Hosp L2
[2025-03-31] VITALS (8 sets, daily range): BP systolic 97–117; BP diastolic 53–65; PULSE 58–73; RESP 16–18; TEMP 36.4–36.9; O2SAT 94–99
--- NOTE | 2025-03-31 04:01 | PCM.HOSP.N ---
Hospitalist Note Patient with sxs low BP, will given bolus and continue to monitor.
[2025-03-31] MEDS: 0.9% Normal Saline (1000mL) 1,000 ML 999 ML IV (04:13)
[2025-03-31 04:42] LABS: Hematocrit 42.8 % (40-54); Hemoglobin 14.4 g/dL (13.0-16.5); Mean Corp Hgb Conc 33.6 g/dL (32-36); Mean Corpuscular Volume 89.2 fL (80-94); Mean Platelet Vol. 10.2 fl (6.2-12.0); Platelet Count 247 K/mm3 (150-450); RBC Distribution Width CV 12.9 % (11.6-14.6); RBC Distribution Width SD 42.1 fl (35.1-43.9); Red Blood Count 4.80 M/mm3 (4.6-6.2); White Blood Count 16.0 K/mm3 (4.4-11.0)
[2025-03-31 05:12] LABS: Anion Gap 11 (5-15); BUN 15 mg/dL (4-19); BUN/Creat Ratio 15.0 RATIO (10-20); Calcium,Total 8.0 mg/dL (7.6-11.0); Carbon Dioxide 22.7 mmol/L (21.0-32.0); Chloride 99 mmol/L (98-108); Estimated Creatinine Clearance 92.32 ml/min (50-250); Glucose 205 mg/dL (70-99); Potassium 4.5 mmol/L (3.3-5.1)
[2025-03-31] MEDS: Aspirin E.C. 81 MG Tablet PO (08:13)
[2025-03-31] MEDS: Ensure Surgery 237 ML LIQUID PO ×2 (08:20→12:16)
--- NOTE | 2025-03-31 10:37 | PN_ITS ---
Subjective Subjective Patient seen and examined. He had no active complaints. Pain was well- controlled. Patient was hypotensive overnight and had to be given a bolus of 1 L normal saline. Blood pressure is at 117/59 this morning. He is on 2 L of oxygen. Review of systems otherwise negative. WBC 16. Objective Data Objective Data Vital Signs: Vital Signs Temp Pulse Resp BP Pulse Ox O2 Del Method O2 Flow Rate 98.0 F 70 16 117/59 L 99 Nasal Cannula 2 03/31/25 07:58 03/31/25 07:58 03/31/25 07:58 03/31/25 07:58 03/31/25 07:58 03/31/25 07:58 03/31/25 07:58 Oxygen Flow Rate (L/min) 2 Oxygen Delivery Method Nasal Cannula Weight: 313 lb 0.902 oz Body Mass Index (BMI) 46.2 Intake & Output: Intake and Output for Last 24 Hours 03/29/25 03/30/25 03/31/25 23:59 23:59 23:59 Intake Total 2049.92 / 2399.92 1969 / 1969 Output Total 100 / 580 800 / 800 Balance 1949.92 / 1819.92 1170 / 1170 Lab / Micro Data 03/31/25 04:08 03/31/25 04:08 Labs: Laboratory Results - last 24 hr 03/31/25 04:08: WBC 16.0 H, RBC 4.80, Hgb 14.4, Hct 42.8, MCV 89.2, MCH 30.0, MCHC 33.6, RDW Std Deviation 42.1, RDW Coeff of Shahzad 12.9, Plt Count 247, MPV 10.2, Sodium 133, Potassium 4.5, Chloride 99, Carbon Dioxide 22.7, Anion Gap 11, BUN 15, Creatinine 1.03, Estim Creat Clear Calc 92.32, Est GFR (MDRD) Non-Af 78, BUN/Creatinine Ratio 15.0, Glucose 205 H, Calcium 8.0 Micro: Microbiology 03/10/25 15:07 Swab (Method) Nasal Screen MRSA/MSSA - Final Radiography Diagnostic Testing: Radiology Impression Shoulder X-Ray 03/30/25 10:25 IMPRESSION: Status post reverse shoulder replacement. There is good alignment. Postoperative soft tissue changes. Reading Location: [place] [address] Physical Exam Const alert, oriented x3 and no apparent distress Constitutional Narrative: class III obesity General Appearance: cooperative and well developed HEENT normocephalic, head/scalp atraumatic, moist oral mucous membranes and oropharynx normal Eyes EOMs intact bilaterally Neck supple and no JVD Lymph Lymphatic: no lymphedema noted Resp Resp Narrative: mildly diminished breath sounds bibasallly, no wheezes or crackles. On 2L of oxygen by nasal canula Cardio regular rate, regular rhythm, S1 normal heart sound, S2 normal heart sound and no murmurs GI normal to inspection, nondistended, normoactive bowel sounds, soft to palpation and non-tender Extremity Extremity Narrative: RUE shoulder bandaged, RUE in sling. 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 Fall precautions. Incentive spirometry. * #Benign essential hypertension: On lisinopril and Lasix. Had transient hypotension last night and had to be given a bolus of normal saline 1L x 1. #Leukocytosis: WBC 16. This may be reactive from surgery. No clear evidence of infection. Will monitor and if it worsens, will consider further workup #Nonrheumatic aortic valve stenosis: S/p TAVR #Dyslipidemia: On statin #History of ADHD: On lisdexamfetamine. Will hold during admission as we likely do not have in our formulary. DVT prophylaxis: As per primary service Thank you for the courtesy of the consult. Hospitalist service will continue to follow with you. Charges/Coding Visit Charges Inpatient E&M: 82237 Subs Hosp L2
[2025-03-31] MEDS: Senna/Docusate Sodium 1 Tablet 2 TABLET PO (10:53)
--- NOTE | 2025-03-31 12:12 | PCM.DC.SUM ---
Providers Date of Admission: 03/30/25 Date of Discharge: 03/31/25 Primary Care Physician: Dr. Chun Schneider, Consultations 03/30/25 09:47 Consult: Hospitalist Routine Consulting Provider: Vane Collins Reason for Consult: post op medical management Right reverse total shoulder arthroplasty EMERGENT Consult: No MD Notified: Yes Date Notified: 03/30/25 Time Notified: 11:11 Method of Notification: Text Reason For Visit: Total Shoulder Replacement Diagnosis Discharge Diagnosis (1) Dyslipidemia: Status: Chronic Code(s): E78.5 - Hyperlipidemia, unspecified (2) S/p reverse total shoulder arthroplasty: Status: Acute Code(s): Z96.619 - Presence of unspecified artificial shoulder joint Plan: 1. Will continue PT today. Sling at all times. Nonweightbearing right upper extremity. Okay for elbow range of motion and pendulums 2. plan for discharge this afternoon following PT 3. Patient will follow up for post op appointment as previously scheduled in 2 weeks 4. Patient has outpatient PT appointment as previously scheduled in 2 weeks 5. WBC 16.0 acute reactive leukocytosis: secondary to pre operative decadron. no acute systemic signs of infection. will monitor, and likely self resolve. 6. H/H 14.4/42.8: No post operavtive anemia 7. DVT prophylaxis : Aspirin 80 mg twice daily x 4 weeks 8. Pain control: patient instructed to take tylenol 500mg 2 tablets TID. and oxycodone 1-2 tablets every 4-6 hours only as needed for pain control. 9. Patient also given a prescription of meloxicam, senna, doxycycline 100 mg twice daily x 1 week. 10. ok to remove post op dressing. post op day 5 Medications at Discharge Home Medications furosemide 40 mg tablet 40 mg PO DAILY diuretic/water pill 02/14/15 omega-3 acid ethyl esters 1 gram capsule 2 gm PO DAILY supplement 02/14/15 potassium chloride 20 mEq tablet,extended release(part/cryst) 20 meq PO DAILY supplement 02/14/15 testosterone cypionate 100 mg/mL intramuscular oil 1 ml IM Q14D hormone 02/14/15 Held on 03/31/25. Instructions: Resume on 04/07/25. folic acid 800 mcg tablet 0.8 mg PO DAILY supplement 03/09/17 benazepril 40 mg tablet 40 mg PO DAILY blood pressure 07/12/19 ergocalciferol (vitamin D2) 1,250 mcg (50,000 unit) capsule 50,000 unit PO Q7D supplement 08/19/20 pregabalin 100 mg capsule 100 mg PO TID pain 01/25/21 sildenafil 100 mg tablet 100 mg PO DAILY PRN Erectile Dysfunction 11/04/21 Held on 03/31/25. Instructions: Resume on 04/30/25. aspirin 81 mg tablet,delayed release 81 mg PO DAILY 12/03/22 Held on 03/31/25. Instructions: Resume on 04/14/25. vitamin [id number] B1 5.5 mg-12.5 mcg/5 mL oral liquid 1 ml PO BID 12/03/22 acetaminophen 500 mg tablet 1,000 mg PO Q8 PRN pain 12/04/22 Held on 03/31/25. Instructions: Resume on 04/30/25. ascorbic acid (vitamin C) 1,000 mg capsule 1 g PO DAILY 05/12/23 levothyroxine 50 mcg tablet 50 mcg PO DAILY 05/12/23 diclofenac sodium 1 % topical gel (Voltaren Arthritis Pain) 2 g topical ONCE PRN pain 09/18/23 Held on 03/31/25. Instructions: Resume on 04/14/25. calcium 500 mg (as carbonate)-vitamin D3 15 mcg (600 unit) tablet (Os-Andrew 500 + D3) 1 tab PO DAILY 90 days #90 tabs 03/18/24 lisdexamfetamine 70 mg capsule (Vyvanse) 70 mg PO QAM 12/13/24 niacin 500 mg tablet 1,000 mg PO QHS supplement 12/13/24 tadalafil 20 mg tablet 20 mg PO PRN 03/06/25 Held on 03/31/25. Instructions: Resume on 04/30/25. acetaminophen 500 mg tablet 1,000 mg (2 x 500 mg) PO Q8 #180 tabs 03/31/25 aspirin 81 mg tablet,delayed release 81 mg PO BID 2 weeks #28 tabs 03/31/25 celecoxib 200 mg capsule 200 mg PO DAILY #30 caps 03/31/25 doxycycline hyclate 100 mg tablet 100 mg PO BID 7 days #14 tabs 03/31/25 oxycodone 5 mg tablet 5 - 10 mg (1 - 2 x 5 mg) PO Q4H PRN PRN Pain Score 4-10 7 days #30 tabs 03/31/25 sennosides 8.6 mg-docusate sodium 50 mg tablet (Stimulant Laxative Plus) 2 tab PO BID #14 tabs 03/31/25 Hospital Course Operations - (Right reverse total shoulder arthroplasty) Summary of Care Provided Hospital Course: Patient is s/p right reverse total shoulder arthroplasty with Dr. Jenkins 03/30/2025. Patient resting comfortably in bed. Rates pain 3/10. States taking Tylenol and oxycodone as needed and ice help to relieve pain. Patient has been up with therapy. Sling at all times. Nonweightbearing to right upper extremity. Afebrile, no chest pain, shortness of breath, negative calf pain/ erythema, and no other signs of DVT. Patient was bolused with saline as well as given oxygen. Patient is currently off oxygen and vitals are stable at this point in time. Physical Exam Narrative Patient resting comfortably in bed side chair Sling in place No signs of acute distress Satting well on room air Limb is warm to touch, Sensation intact throughout entire upper extremity, Radial pulses bounding Dressing clean dry intact Calf nontender to palpation, no erythema, no edema. Negative Homans Weight / BMI Weight Weight: 142 kg Body Mass Index (BMI) 46.2 ABG / Lab / Microbiology Data 03/31/25 04:08 03/31/25 04:08 Laboratory: Laboratory Results - last 24 hr 03/31/25 04:08: WBC 16.0 H, RBC 4.80, Hgb 14.4, Hct 42.8, MCV 89.2, MCH 30.0, MCHC 33.6, RDW Std Deviation 42.1, RDW Coeff of Shahzad 12.9, Plt Count 247, MPV 10.2, Sodium 133, Potassium 4.5, Chloride 99, Carbon Dioxide 22.7, Anion Gap 11, BUN 15, Creatinine 1.03, Estim Creat Clear Calc 92.32, Est GFR (MDRD) Non-Af 78, BUN/Creatinine Ratio 15.0, Glucose 205 H, Calcium 8.0 Microbiology: Microbiology 03/10/25 15:07 Swab (Method) Nasal Screen MRSA/MSSA - Final D/C Instructions Discharge Activity: May Not Drive and May Shower Weight Bearing Status: No weight bearing (Right upper extremity) Call your doctor if your incision/area has: Continuous Slow Oozing, Sudden Increased Bleeding, Increased Pain/ Swelling, Increased Redness, Foul Smelling Discharge and Swelling at the incision site Call your doctor if you observe: Fever of 101 or Higher, Inability to urinate, Inability to have a bowel movement, Shortness of breath, Dizziness, Chest pain and Uncontrolled pain Remove Dressing in: 1 week Cleanse incision/area with: Soap & Water and Keep Dressing Clean & Dry DC O2, CPAP, BIPAP Needs Home O2 Discharge instructions: No DC home with Oxygen: No When: As previously scheduled 2 weeks with [facility] Meaningful Use Info Meaningful Use Meaningful Use Diagnoses (Choose all that apply): None applicable Discharge Plan Admission Admit Date/Time: 03/30/25 09:48 Attending Provider: Doug Jenkins Primary Care Provider: Chun Schneider Consulting Providers: Vane Collins Discharge Orders/Prescriptions Prescriptions: New acetaminophen 500 mg Tablet 1,000 mg PO Q8 Qty: 180 0RF aspirin 81 mg Tablet,Delayed Release (Dr/Ec) 81 mg PO BID 14 Days Qty: 28 0RF celecoxib 200 mg Capsule 200 mg PO DAILY Qty: 30 0RF sennosides-docusate sodium [Stimulant Laxative Plus] 8.6-50 mg Tablet 2 tab PO BID Qty: 14 0RF oxycodone 5 mg Tablet 5 - 10 mg PO Q4H PRN PRN (Reason: Pain Score 4-10) 7 Days Qty: 30 0RF doxycycline hyclate 100 mg tablet 100 mg PO BID 7 Days Qty: 14 0RF Continued pregabalin 100 mg capsule 100 mg PO TID Patient Comments: TAKE 1 CAPSULE BY MOUTH 3 TIMES A DAY levothyroxine 50 mcg tablet 50 mcg PO DAILY ascorbic acid (vitamin C) 1,000 mg capsule 1 g PO DAILY lisdexamfetamine [Vyvanse] 70 mg capsule 70 mg PO QAM furosemide 40 MG tablet 40 mg PO DAILY potassium chloride 20 MEQ tablet 20 meq PO DAILY omega-3 acid ethyl esters 1 GM capsule 2 gm PO DAILY niacin 500 mg tablet 1,000 mg PO QHS folic acid 0.8 MG tablet 0.8 mg PO DAILY benazepril 40 MG tablet 40 mg PO DAILY ergocalciferol (vitamin D2) 50,000 UNIT capsule 50,000 unit PO Q7D Rx Instructions: on sundays vitamin [id number] B1 5.5-12.5 mg-mcg/5 mL Liquid 1 ml PO BID calcium carbonate-vitamin D3 [Os-Andrew 500 + D3] 500 mg-15 mcg (600 unit) tablet 1 tab PO DAILY 90 Days Qty: 90 0RF Held sildenafil 100 mg tablet 100 mg PO DAILY PRN (Reason: Erectile Dysfunction) Hold Instructions: Resume on 04/30/25. Patient Comments: several weeks since last taken diclofenac sodium [Voltaren Arthritis Pain] 1 % gel 2 g topical ONCE PRN (Reason: pain) Hold Instructions: Resume on 04/14/25. Rx Instructions: apply to single elbow, wrist or hand; for hand includes palm/fingers/back of hand testosterone cypionate 100 MG/ML oil 1 ml IM Q14D Hold Instructions: Resume on 04/07/25. acetaminophen 500 mg tablet 1,000 mg PO Q8 PRN (Reason: pain) Hold Instructions: Resume on 04/30/25. aspirin 81 mg tablet,delayed release (DR/EC) 81 mg PO DAILY Hold Instructions: Resume on 04/14/25. tadalafil 20 mg tablet 20 mg PO PRN Hold Instructions: Resume on 04/30/25. Referrals / Follow Up: Chun Schneider DO [Primary Care Provider, Medical] Disposition Disposition (needs filled in before D/C Order can be placed): Home, Self Care
--- NOTE | 2025-03-31 13:48 | CASEMGMT ---
Noted OT sandra. RN CM into pt room, pt sitting up in chair dressed in no distress. Pt states he has no concerns going home. Pt feels safe. Denies any homegoing needs at this time.
--- NOTE | 2025-03-31 14:13 | PHA.DC.MC.R ---
Pharmacy [facility] Counseling Pharmacy Service has performed discharge medication reconciliation and counseling for this patient. The patient's discharge medication list was reviewed for discrepancies and discrepancies were resolved. The patient was counseled on the following discharge medications and changes in medications for homegoing were reviewed. The Reason for Use, instructions for use, and potential side effects were reviewed for all new medications. The patient's questions regarding all of their medications were answered. 1. Doxycycline 100 mg PO BID x 7 days 2. Senna-docusate 2 tabs Po BID 3. Oxycodone 5-10 mg PO Q4H PRN pain 4-10 4. Acetaminophen 1000 mg PO Q8H 5. Celecoxib 200 mg PO daily 6. Aspirin 81 mg PO BID The patient was able to verbally demonstrate an understanding of their discharge medications. Medications at Discharge Home Medications furosemide 40 mg tablet 40 mg PO DAILY diuretic/water pill 02/14/15 omega-3 acid ethyl esters 1 gram capsule 2 gm PO DAILY supplement 02/14/15 potassium chloride 20 mEq tablet,extended release(part/cryst) 20 meq PO DAILY supplement 02/14/15 testosterone cypionate 100 mg/mL intramuscular oil 1 ml IM Q14D hormone 02/14/15 Held on 03/31/25. Instructions: Resume on 04/07/25. folic acid 800 mcg tablet 0.8 mg PO DAILY supplement 03/09/17 benazepril 40 mg tablet 40 mg PO DAILY blood pressure 07/12/19 ergocalciferol (vitamin D2) 1,250 mcg (50,000 unit) capsule 50,000 unit PO Q7D supplement 08/19/20 pregabalin 100 mg capsule 100 mg PO TID pain 01/25/21 sildenafil 100 mg tablet 100 mg PO DAILY PRN Erectile Dysfunction 11/04/21 Held on 03/31/25. Instructions: Resume on 04/30/25. aspirin 81 mg tablet,delayed release 81 mg PO DAILY 12/03/22 Held on 03/31/25. Instructions: Resume on 04/14/25. vitamin [id number] B1 5.5 mg-12.5 mcg/5 mL oral liquid 1 ml PO BID 12/03/22 acetaminophen 500 mg tablet 1,000 mg PO Q8 PRN pain 12/04/22 Held on 03/31/25. Instructions: Resume on 04/30/25. ascorbic acid (vitamin C) 1,000 mg capsule 1 g PO DAILY 05/12/23 levothyroxine 50 mcg tablet 50 mcg PO DAILY 05/12/23 diclofenac sodium 1 % topical gel (Voltaren Arthritis Pain) 2 g topical ONCE PRN pain 09/18/23 Held on 03/31/25. Instructions: Resume on 04/14/25. calcium 500 mg (as carbonate)-vitamin D3 15 mcg (600 unit) tablet (Os-Andrew 500 + D3) 1 tab PO DAILY 90 days #90 tabs 03/18/24 lisdexamfetamine 70 mg capsule (Vyvanse) 70 mg PO QAM 12/13/24 niacin 500 mg tablet 1,000 mg PO QHS supplement 12/13/24 tadalafil 20 mg tablet 20 mg PO PRN 03/06/25 Held on 03/31/25. Instructions: Resume on 04/30/25. acetaminophen 500 mg tablet 1,000 mg (2 x 500 mg) PO Q8 #180 tabs 03/31/25 aspirin 81 mg tablet,delayed release 81 mg PO BID 2 weeks #28 tabs 03/31/25 celecoxib 200 mg capsule 200 mg PO DAILY #30 caps 03/31/25 doxycycline hyclate 100 mg tablet 100 mg PO BID 7 days #14 tabs 03/31/25 oxycodone 5 mg tablet 5 - 10 mg (1 - 2 x 5 mg) PO Q4H PRN PRN Pain Score 4-10 7 days #30 tabs 03/31/25 sennosides 8.6 mg-docusate sodium 50 mg tablet (Stimulant Laxative Plus) 2 tab PO BID #14 tabs 03/31/25
== END 2025-03-31 15:03 | disposition home or self-care (01) ==
LOC: SDC 10:24 → MS3 10:24
PROVIDERS: Anesthesiology; Admitting Provider Student in an Organized Health Care Education/Training Program; PCP Family Medicine; Referring Provider Student in an Organized Health Care Education/Training Program; Visit Provider Student in an Organized Health Care Education/Training Program
PROC: (CPT 23472; principal; 2025-03-30 07:00)
DX: M19.011 Primary osteoarthritis, right shoulder (principal); M06.9 Rheumatoid arthritis, unspecified; E78.5 Hyperlipidemia, unspecified; I10 Essential (primary) hypertension; K21.9 Gastro-esophageal reflux disease without esophagitis; G47.30 Sleep apnea, unspecified; E07.9 Disorder of thyroid, unspecified; Z79.899 Other long term (current) drug therapy; Z79.82 Long term (current) use of aspirin
CPT/HCPCS: 23472; 36415; 73030; 80048; 82040; 82962; 83036; 83735; 84443; 85025; 85027; 87081; 93005; 94668; 96361; 96365; 96366; 97167; 99221; C1776; G0378; J2405; J3475